=== PATIENT | female | born 1965 | race Caucasian/White ===

== ENCOUNTER → 2019-09-17 09:45 | Outpatient (BNVA) | payer MEDICARE, MEDICAID, SELFPAY | PROVIDERS: Visit Provider Nurse Practitioner Psychiatric/Mental Health | DX: F33.2 Major depressive disorder, recurrent severe without psychotic features (principal); F41.1 Generalized anxiety disorder; F17.210 Nicotine dependence, cigarettes, uncomplicated | CPT/HCPCS: 99213 ==

== ENCOUNTER 2019-11-03 09:25 | Outpatient (CLI) | payer MEDICARE, MEDICAID, SELFPAY ==
--- NOTE | 2019-11-03 09:30 | MR_ITS ---
WS: [id number] MRI LUMBAR SPINE NONCONTRAST HISTORY: Low back pain COMPARISON: 01/29/2019 TECHNIQUE: Sagittal and axial multisequence imaging is submitted. Normal lumbar alignment with no compression fractures or marrow edema. Disc spaces are maintained. Mild disc desiccation at L4-5. Conus terminates normally at L1. L1-L2: Normal. L2-L3: Mild facet arthropathy. No stenosis. L3-L4: Mild annular disc bulging and facet arthropathy. Very slight narrowing of the foramen bilatera lly. L4-L5: Mild narrowing of the thecal sac and foramen due to combination of disc and facet disease. Angela y shallow central disc protrusion seen on the prior study has nearly resolved. There is very minimal disc bulging centrally and to the RIGHT. Mild central, subarticular recess and foraminal stenosis. Co mponent of short pedicles is also suspected. L5-S1: Mild bilateral foraminal narrowing. Paraspinal soft tissues are negative for acute process. MR/MR lumbar spine wo con* [id number] IMPRESSION: 1. Degenerative disc and facet arthropathy at L4-5. 2. There is mild central, subarticular recess and foraminal stenosis at the L4 -5 level. Previously seen tiny disc protrusion at L4-5 has nearly resolved. 3. There is mild narrowing of the central canal. 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 No severe stenosis at this time.
== END 2019-11-03 09:26 | disposition home or self-care (01) ==
LOC: RADSHAW 09:29
PROVIDERS: PCP Nurse Practitioner Family; Visit Provider Licensed Practical Nurse
DX: M47.896 Other spondylosis, lumbar region (principal); M48.061 Spinal stenosis, lumbar region without neurogenic claudication; M54.5 Low back pain
CPT/HCPCS: 72148

== ENCOUNTER 2019-11-04 08:10 | Outpatient (CLI) | payer MEDICARE, MEDICAID, SELFPAY ==
--- NOTE | 2019-11-04 08:22 | XR_ITS ---
WS: [id number] LUMBAR SPINE FLEXION AND EXTENSION TECHNIQUE: 3 views of the lumbar spine: Lateral neutral, flexion, and extension views. CLINICAL INFORMATION: low back pain COMPARISON: May 07, 2019 FINDINGS: Stable trace anterolisthesis L4 on L5. No instability on the flexion and extension views. Chronic appearing anterior wedging at T11. Aortic calcification. Mild to moderate facet arthropathy L 4-L5 and L5-S1. XR/XR lumbar spine f/e only [id number] IMPRESSION: No instability on flexion-extension
== END 2019-11-04 08:11 | disposition home or self-care (01) ==
LOC: RADWPI 08:17
PROVIDERS: PCP Nurse Practitioner Family; Visit Provider Licensed Practical Nurse
DX: M51.17 Intervertebral disc disorders with radiculopathy, lumbosacral region (principal); M54.5 Low back pain
CPT/HCPCS: 72120

== ENCOUNTER → 2019-11-25 08:37 | Outpatient (BNVA) | payer MEDICARE, MEDICAID, SELFPAY | PROVIDERS: PCP Nurse Practitioner Family; Referring Provider Licensed Practical Nurse; Visit Provider Anesthesiology Pain Medicine | DX: M47.816 Spondylosis without myelopathy or radiculopathy, lumbar region (principal); M51.17 Intervertebral disc disorders with radiculopathy, lumbosacral region; M62.830 Muscle spasm of back; F17.210 Nicotine dependence, cigarettes, uncomplicated; Z79.899 Other long term (current) drug therapy | CPT/HCPCS: 99204 ==

== ENCOUNTER → 2020-01-05 07:41 | Outpatient (BNVA) | payer MEDICARE, MEDICAID, SELFPAY | PROVIDERS: PCP Nurse Practitioner Family; Visit Provider Nurse Practitioner Psychiatric/Mental Health | DX: F33.2 Major depressive disorder, recurrent severe without psychotic features (principal); F41.1 Generalized anxiety disorder; F17.210 Nicotine dependence, cigarettes, uncomplicated | CPT/HCPCS: 99213 ==

== ENCOUNTER 2020-04-13 19:35 | Inpatient (IN) | payer MEDICARE, MEDICAID, SELFPAY ==
[2020-04-13 19:46] VITALS: BP 92/65; PULSE 101; RESP 26; TEMP 36.3; O2SAT 93; BMI 33.2
--- NOTE | 2020-04-13 19:58 | CTR_ITS ---
PROCEDURE INFORMATION: Exam: CT Abdomen And Pelvis With Contrast Exam date and time: 04/13/2020 8:20 PM Age: 54 years old Clinical indication: Nausea and vomiting; Abdominal pain; Prior surgery; Surgery type: Hyst, gb; Additional info: Abd pain TECHNIQUE: Imaging protocol: Computed tomography of the abdomen and pelvis with intravenous contrast. Axial, coronal and sagittal reformatted images were created and reviewed. Radiation optimization: All CT scans at this facility use at least one of these dose optimization techniques: automated exposure control; mA and/or kV adjustment per patient size (includes targeted exams where dose is matched to clinical indication); or iterative reconstruction. Contrast material: OMNI 300; Contrast volume: 95 ml; Contrast route: INTRAVENOUS (IV); COMPARISON: CT abdomen pelvis wo con [id number] 03/18/2016 7:21 AM RADIATION DOSE METRICS: Total DLP (mGy-cm): 1291.91 FINDINGS: Liver: Subtle nodularity of the hepatic contour, suggesting cirrhosis. Gallbladder and bile ducts: Status post cholecystectomy. No biliary ductal dilatation. Pancreas: Unremarkable. Spleen: Unremarkable. Adrenals: Mild nonspecific bilateral adrenal thickening. Kidneys and ureters: No mass. No radiodense calculi. No hydronephrosis. Stomach and bowel: Multifocal bowel wall thickening and mural edema, most pronounced in the mid to distal small bowel loops and sigmoid colon. Scattered colonic diverticula. No obstruction. No pneumatosis. Appendix: Normal. Intraperitoneal space: Small ascites some of which is mildly loculated and peripherally enhancing in the pelvis, measuring up to 9.4 x 4.3 cm in the right lower pelvis and 5.4 x 3.2 cm in the left posterior pelvis. Moderate infiltration of the mesenteric fat. Scattered foci of free intraperitoneal air. Vasculature: Moderate atherosclerotic disease. No aneurysm or dissection. Lymph nodes: No pathologically enlarged lymph nodes. Bladder: Mild circumferential urinary bladder wall thickening, likely secondary to underdistention. Reproductive: Unremarkable. Bones/joints: No acute osseous abnormality. Osteopenia. Mild degenerative changes. Soft tissues: Unremarkable. CT/CT abdomen pelvis w con* [id number] IMPRESSION: 1. Evidence of bowel perforation with reactive enteritis, peritonitis and developing abscess formation in the pelvis, as described above. Query underlying perforated sigmoid diverticulitis. 2. Additional findings, as above. THIS REPORT CONTAINS FINDINGS THAT MAY BE CRITICAL TO PATIENT CARE. The findings were verbally communicated via telephone conference with jennie Chang at 9:00 PM CDT on 04/13/2020. The findings were acknowledged and understood. Radiation Dose CTDIVOL = (mGy): DLP = 1291.91 (mGy-cm)
[2020-04-13 20:00] LABS: Basophils # 0.2 10^3/uL (0.0-0.1); Basophils % 0.5 %; Eosinophils % 0.1 %; Hematocrit 49.9 % (37.0-47.0); Hemoglobin 16.6 g/dL (11.5-15.3); Lymphocytes # 1.8 10^3/uL (0.8-4.8); Lymphocytes % 5.4 %; Mean Corpuscular HGB Conc 33.3 g/dL (30.0-36.0); Mean Corpuscular Hemoglobin 28.5 pg (28.0-34.0); Mean Corpuscular Volume 85.7 fL (81-99); Monocytes % 5.9 %; Neutrophils # 28.22 10^3/uL (1.8-7.7); Neutrophils % 84.8 %; Nucleated Red Blood Cells % 0 %; Platelet Count 467 10^3/cmm (130-400); Red Blood Count 5.82 10^6/uL (4.1-5.3); Red Cell Distribution Width 13.9 % (12.1-15.1)
--- NOTE | 2020-04-13 20:03 | W.ED.NAVMDI ---
HPI - Nausea/Vomiting/Diarrhea General: Chief complaint: Nausea/Vomiting/Diarrhea Stated complaint: STOMACH PAIN Time Seen by Provider: 04/13/20 19:54 Source: patient and EMS Mode of arrival: EMS Limitations: no limitations History of Present Illness: HPI Narrative: 54-year-old female states over the last 3 to 4 days she had nausea vomiting diarrhea along with abdominal pain. States abdominal pain is diffuse in nature and sharp. She rates her pain an 8 out of 10. Denies any worsening or improving factors. Denies any fevers. Patient has a history of a cholecystectomy in the past. MD elicited complaint: nausea, vomiting and abdominal pain Associated nausea: Yes Location of pain: Diffuse Pain consistency: constant Severity: severe Quality: sharp Exacerbating factors: none Relieving factors: none Associated symtoms: Reports nausea; Denies chest pain, dysuria or headache(s) Review of Systems Const: Denies: fever(s), chills, body aches or change in appetite Eyes: Denies: blurry vision or eye discomfort ENMT: Denies: throat pain or dental pain Card: Denies: chest pain Resp: Denies: dyspnea GI: Reports: abdominal pain, nausea and vomiting : Denies: dysuria Musc: Denies: neck pain or back pain Skin/Breast: Denies: rash Neuro: Denies: headache(s) Psych: Denies: depression Jf/Lymph: Denies: easy bruising All/Imm: Denies: urticaria PFSH ED PFSH: Medical History Generalized anxiety disorder 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, recurrent severe without psychotic features Nicotine dependence, cigarettes, uncomplicated Surgical History H/O of hysterectomy with bilateral oophorectomy Family History Mother CHF (congestive heart failure) Social History Smoking and tobacco status: current every day smoker cigarettes Packs smoked per day: 1 Alcohol intake: current Alcohol intake frequency: few times a month Household members: family Marital status: Current occupational status: unemployed History of recent travel: No Physical Exam Const: COMMON NORMALS: no acute distress, patient oriented x3 and healthy appearing HENMT: COMMON NORMALS: normocephalic and atraumatic HEAD & SCALP: normocephalic and atraumatic Eye: COMMON NORMALS: Equal, round and reactive pupils present and EOMs intact bilaterally PUPIL: Yes Equal, round and reactive pupils present Neck/C-Spine: COMMON NORMALS: full ROM and supple Chest: COMMONS NORMALS: normal inspection of the chest and normal palpation of entire chest wall Resp: COMMON NORMALS: normal respiratory effort, No retractions, No use of accessory muscles and clear to auscultation bilaterally AUSCULTATION: clear to auscultation bilaterally Cardio: COMMON NORMALS: regular rate, regular rhythm and No murmurs present (Cardio) RATE: regular rate RHYTHM: regular rhythm GI: COMMON NORMALS: Normal to inspection, nondistended, normoactive bowel sounds present, Soft to palpation and no masses PALPATION: Yes Soft to palpation and Yes Tenderness to palpation present (GI) (diffuse) Extremity: COMMON NORMALS: normal to inspection and full ROM Neuro: COMMON NORMALS: patient oriented x3, moves all extremities and no focal motor deficits Psych: COMMON NORMALS: mental status grossly normal, Normal thought process present and cooperative THOUGHT PROCESS: Normal thought process present Skin: COMMON NORMALS: no rashes or lesions noted and no wounds GENERAL SKIN EXAM: no rashes or lesions noted Course Vital Signs: Vital signs: Vital Signs Temperature 97.3 F L 04/13/20 19:46 Pulse Rate 88 04/13/20 21:27 Respiratory Rate 18 04/13/20 21:27 Blood Pressure 108/62 04/13/20 21:27 Pulse Oximetry 95 04/13/20 21:27 MDM - Nausea/Vomiting/Diarrhea MDM Narrative: Medical decision making narrative: Patient presents here with abdominal pain is found to have a bowel perforation. Patient also has acute kidney injury. Patient started on Cipro and Flagyl and Dr. Villegas is down seen patient currently and plan to take to the OR. Patient has been stable here. Lab Data: Labs: Lab Results 04/13/20 04/13/20 Range/Units 19:56 19:56 WBC 33.3 H* (4.0-10.0) 10^3/ uL RBC 5.82 H (4.1-5.3) 10^6/u L Hgb 16.6 H (11.5-15.3) g/dL Hct 49.9 H (37.0-47.0) % MCV 85.7 (81-99) fL MCH 28.5 (28.0-34.0) pg MCHC 33.3 (30.0-36.0) g/dL RDW 13.9 (12.1-15.1) % Plt Count 467 H (130-400) 10^3/c mm MPV 9.0 (7.4-10.4) fL Neut % (Auto) 84.8 % Lymph % (Auto) 5.4 % [place] % (Auto) 5.9 % Eos % (Auto) 0.1 % Baso % (Auto) 0.5 % Neut # (Auto) 28.22 H (1.8-7.7) 10^3/u L Lymph # (Auto) 1.8 (0.8-4.8) 10^3/u L [place] # (Auto) 2.0 H (0.2-0.9) 10^3/u L Eos # (Auto) 0.0 (0.0-0.8) 10^3/u L Baso # (Auto) 0.2 H (0.0-0.1) 10^3/u L Nucleated RBC % (a uto) 0 % Nucleated RBCs # 0.0 /100WBC Sodium 126 L (136-145) mmol/L Potassium 2.7 L* (3.5-5.1) mmol/L Chloride 79 L (98-107) mmol/L Carbon Dioxide 24 (22-29) mmol/L Anion Gap 25.7 H (5-19) BUN 90 H* (6-20) mg/dL Creatinine 3.3 H (0.5-0.9) mg/dL GFR Calculation 14.6 L (90-130) mL/min Glucose 113 (65-115) mg/dL Calculated Osmolal ity 263 L (285-295) mOsm/k g Calcium 7.9 L (8.5-10.5) mg/dL Total Bilirubin 1.0 (0.15-1.2) mg/dL AST 22 (0-32) U/L ALT 11 (0-33) U/L Alkaline Phosphata se 132 H (35-105) IU/L Total Protein 7.4 (6.6-8.7) g/dL Albumin 2.5 L (3.5-5.2) g/dL Globulin 4.9 H (1.3-4.6) g/dL Lipase 33 (13-60) U/L Imaging Data^: CT Abd/Pel: Radiologist's impression: [address] [place] [address] CT Scan Report Signed Patient: Irma Jones Unit #: [id number] : [id number] Age/Sex: 54 / F ADM Date: 04/13/20 Loc: ER Room/Bed: Attending Dr: Ordering Provider/Ordering MD: Brianne Chang MD Date of Service: 04/13/20 Procedure(s): CT abdomen pelvis w con* [id number] Accession Number(s): [id number] Report Number: [id number] PROCEDURE INFORMATION: Exam: CT Abdomen And Pelvis With Contrast Exam date and time: 04/13/2020 8:20 PM Age: 54 years old Clinical indication: Nausea and vomiting; Abdominal pain; Prior surgery; Surgery type: Hyst, gb; Additional info: Abd pain TECHNIQUE: Imaging protocol: Computed tomography of the abdomen and pelvis with intravenous contrast. Axial, coronal and sagittal reformatted images were created and reviewed. Radiation optimization: All CT scans at this facility use at least one of these dose optimization techniques: automated exposure control; mA and/or kV adjustment per patient size (includes targeted exams where dose is matched to clinical indication); or iterative reconstruction. Contrast material: OMNI 300; Contrast volume: 95 ml; Contrast route: INTRAVENOUS (IV); COMPARISON: CT abdomen pelvis wo con [id number] 03/18/2016 7:21 AM RADIATION DOSE METRICS: Total DLP (mGy-cm): 1291.91 FINDINGS: Liver: Subtle nodularity of the hepatic contour, suggesting cirrhosis. Gallbladder and bile ducts: Status post cholecystectomy. No biliary ductal dilatation. Pancreas: Unremarkable. Spleen: Unremarkable. Adrenals: Mild nonspecific bilateral adrenal thickening. Kidneys and ureters: No mass. No radiodense calculi. No hydronephrosis. Stomach and bowel: Multifocal bowel wall thickening and mural edema, most pronounced in the mid to distal small bowel loops and sigmoid colon. Scattered colonic diverticula. No obstruction. No pneumatosis. Appendix: Normal. Intraperitoneal space: Small ascites some of which is mildly loculated and peripherally enhancing in the pelvis, measuring up to 9.4 x 4.3 cm in the right lower pelvis and 5.4 x 3.2 cm in the left posterior pelvis. Moderate infiltration of the mesenteric fat. Scattered foci of free intraperitoneal air. Vasculature: Moderate atherosclerotic disease. No aneurysm or dissection. Lymph nodes: No pathologically enlarged lymph nodes. Bladder: Mild circumferential urinary bladder wall thickening, likely secondary to underdistention. Reproductive: Unremarkable. Bones/joints: No acute osseous abnormality. Osteopenia. Mild degenerative changes. Soft tissues: Unremarkable. CT/CT abdomen pelvis w con* [id number] IMPRESSION: 1. Evidence of bowel perforation with reactive enteritis, peritonitis and developing abscess formation in the pelvis, as described above. Query underlying perforated sigmoid diverticulitis. 2. Additional findings, as above. Critical Care Time Critical Care Time: Critical Care Time: Yes Total Critical Care Time: 36 Attestation: This case had a high probability of a clinically significant, sudden, or life threatening deterioration of this patient's condition which required my full and direct attention, intervention and personal management. Discharge Plan Discharge Patient Disposition: Admitted As Inpatient Clinical Impression: Bowel perforation, Acute kidney injury Condition: Stable Coding Level of Care Code ED Paper Cone Maker for Pretty Waggoner Exam Comprehensive
[2020-04-13 20:18] LABS: Alanine Aminotransferase 11 U/L (0-33); Albumin Level 2.5 g/dL (3.5-5.2); Alkaline Phosphatase 132 IU/L (35-105); Anion Gap 25.7 (5-19); Aspartate Amino Transferase 22 U/L (0-32); Calcium 7.9 mg/dL (8.5-10.5); Carbon Dioxide 24 mmol/L (22-29); Chloride 79 mmol/L (98-107); Globulin 4.9 g/dL (1.3-4.6); Glomerular Filtration Rate 14.6 mL/min (90-130); Glucose 113 mg/dL (65-115); Lipase 33 U/L (13-60); Osmolality Calculated 263 mOsm/kg (285-295); Sodium 126 mmol/L (136-145); Total Protein 7.4 g/dL (6.6-8.7)
[2020-04-13 20:23] LABS: Blood Urea Nitrogen 90 mg/dL (6-20); Potassium 2.7 mmol/L (3.5-5.1)
[2020-04-13] MEDS: iohexol 300 mg/mL 100 mL Btl IV (20:28)
[2020-04-13] MEDS: potassium chloride ER 10 mEq Tablet 40 MEQ PO (20:43)
[2020-04-13] MEDS: sodium chloride 0.9% 1,000 ML 999 ML IV ×2 (20:45→20:47)
[2020-04-13 20:46] VITALS: RESP 16; O2SAT 97
[2020-04-13] MEDS: ondansetron 2 mg/ML SDV 2 mL 4 MG IVP (20:46)
[2020-04-13] MEDS: HYDROmorphone 1 mg/mL INJ 1 mL IVP (20:46)
[2020-04-13 20:50] VITALS: BP 108/73; PULSE 89; RESP 18; O2SAT 96
[2020-04-13 20:52] LABS: White Blood Count 33.3 10^3/uL (4.0-10.0)
[2020-04-13 20:54] LABS: Slide Review Slide Review Perform
--- NOTE | 2020-04-13 21:24 | ECG_ITS ---
[facility] Test Date: 2020-04-13 Pat Name: Irma Jones Department: Room: Gender: Female Manager Intensive Care Unit: : 1965 Requested By: Breanna Love Order Number: [id number] Lyon MD: Maximino Coon M.D. Measurements Intervals [place] Rate: 79 P: 70 ND: 162 QRS: -43 QRSD: 112 T: 66 QT: 384 QTc: 440 Interpretive Statements SINUS RHYTHM LEFT AXIS DEVIATION [QRS AXIS < -30] MODERATE INTRAVENTRICULAR CONDUCTION DELAY [105+ ms QRS DURATION, 80+ ms Q/S IN V1/V2, NO Q AND 60+ ms R IN I/aVL/V5/V6] Compared to ECG 03/17/2016 17:02:57 Left-axis deviation now present Intraventricular conduction delay now present Myocardial infarct finding no longer present Electronically Signed On 04-14-2020 20:19:17 CDT by Mxaimino Coon M.D. [id number]
[2020-04-13] MEDS: ciprofloxacin 400 MG/200 ML PREMIX 200 MG IV (21:25)
[2020-04-13 21:27] VITALS: BP 108/62; PULSE 88; RESP 18; O2SAT 95
--- NOTE | 2020-04-13 21:33 | P.HP_ITS ---
Providers/Chief Complaint Admitting Physician: Toño Villegas MD Chief Complaint: STOMACH PAIN History of Present Illness Chief Complaint: My belly hurts History of present illness: Ms Irma Jones is a 54 year old female presents to the emergency department with worsening abdominal pain since last Sunday associated with nausea and v omiting she had a bowel movement today in the form of diarrhea nonbloody, patient denies any fevers or chills but she admits that she has been getting weaker, patient upon evaluation in the emergency department was found to have leukocytosis of 33,000+ and elevated creatinine more than 3 likely acute kidney injury and a CT scan of the abdomen and pelvis that showed; IMPRESSION: 1. Evidence of bowel perforation with reactive enteritis, peritonitis and developing abscess formation in the pelvis, as described above. Query underlying perforated sigmoid diverticulitis. 2. Additional findings, as above. Patient reports that she has history of depression and high blood pressure. General surgery was consulted for further evaluation and management Patient was seen emergently in the emergency department in room 2 Review of Systems General: Reports: 10 or more systems reviewed and unremarkable except in HPI and below Medications/Allergies Home Medications Medication Instructions Recorded Confirmed Last Taken Type esomeprazole magnesium 40 mg 40 mg PO QDAY 09/17/19 04/13/20 04/13/20 History capsule,delayed release hydrochlorothiazide 12.5 mg tablet 12.5 mg PO QAM 09/17/19 04/13/20 Unknown History lovastatin 20 mg tablet 20 mg PO QDAY 09/17/19 04/13/20 Unknown History meloxicam 15 mg tablet 15 mg PO QDAY 09/17/19 04/13/20 Unknown History ondansetron HCl 4 mg tablet 4 mg PO DAILY PRN tab 09/17/19 04/13/20 Unknown History valsartan 80 mg tablet 80 mg PO QDAY 09/17/19 04/13/20 Unknown History [id number] 250 1 tab PO Q6H PRN 11/25/19 04/13/20 Unknown History mg-250 mg-65 mg tablet baclofen 10 mg tablet 10 mg PO TID PRN 11/25/19 04/13/20 Unknown History gabapentin 300 mg capsule 300 mg PO BID #60 cap 11/25/19 04/13/20 Unknown Rx tizanidine 4 mg tablet 4 mg PO BID PRN #60 tab MDD 2 11/25/19 04/13/20 Unknown Rx alprazolam 1 mg tablet 1 mg PO TID PRN #90 tab 01/05/20 04/13/20 Unknown Rx citalopram 40 mg tablet 40 mg PO .morning #30 tab 01/05/20 04/13/20 Unknown Rx hydroxyzine HCl 50 mg tablet 50 mg PO BID PRN #60 tab 01/05/20 04/13/20 Unknown Rx trazodone 100 mg tablet 300 mg PO .bedtime #90 tab 01/05/20 04/13/20 Unknown Rx Allergies Allergy/AdvReac Type Severity Reaction Status Date / Time codeine Allergy Unknown rash, Verified 04/13/20 21:43 itching Penicillins Allergy Unknown rash, Verified 04/13/20 21:43 itching Sulfa (Sulfonamide Allergy Unknown rash, Verified 04/13/20 21:43 Antibiotics) itching PFSH Acute PFSH: Medical History Generalized anxiety disorder 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, recurrent severe without psychotic features Nicotine dependence, cigarettes, uncomplicated Surgical History H/O of hysterectomy with bilateral oophorectomy Family History Mother CHF (congestive heart failure) Social History Smoking and tobacco status: current every day smoker cigarettes Packs smoked per day: 1 Alcohol intake: current Alcohol intake frequency: few times a month Household members: family Marital status: Current occupational status: unemployed History of recent travel: No Vitals/I&O/Wt Last Vital Signs Temp 97.3 F L 04/13/20 19:46 Pulse 88 04/13/20 21:27 Resp 18 04/13/20 21:27 BP 108/62 04/13/20 21:27 Pulse Ox 95 04/13/20 21:27 Weight last 48 hrs Weight 170 lb Physical Exam Narrative: EXAM NARRATIVE: Patient is conscious alert oriented X3 BMI 33.2 Head and neck examination PERRLA no masses no cervical lymphadenopathy no jaundice Cardiac examination audible S1-S2 no murmurs no gallops no arrhythmias Chest is clear bilateral,abscence of Rhonchi or wheezes,no surgical emphysema Abdomen diffusely tender distended associated with guarding and rigidity/signs of peritonitis Extremities no cyanosis no clubbing no edema Data : 04/13/20 19:56 04/13/20 19:56 A&P Assessment and plan (1) Bowel perforation: After thorough history physical examination and reviewing the chart and images with my personal interpretation likely the patient has a perforated sigmoid diverticulitis will require diagnostic laparoscopy possible laparotomy with possible bowel resection and possible colostomy. Indications risks benefits and alternatives all discussed with the patient her daughter, patient agreed to proceed accordingly. Patient does understand that she is a high risk of complications due to her late presentation as she has been having abdominal pain for a week now, potential need of ICU on mechanical ventilation postoperatively. We will consult hospitalist service evaluate for patient's kidney injury Status: Acute Attestations Medical Necessity Statement*: Medical necessity care is expected to cross 2 midnights Time Spent in Patient Care: (>than 50% of time spent in counselling and/or direct pt care on unit) . Coding Level of Care Code Acute Clinical Project Assistant for Pretty Waggoner Diagnoses Bowel perforation K63.1
[2020-04-13 21:38] LABS: Lactate (Lactic Acid level) 3.5 mmol/L (0.5-2.2)
--- NOTE | 2020-04-13 21:55 | P.CONIM_ITS ---
Providers/Reason For Consult Consulting Physican/Specialty*: Hospitalist service Reason for Consult*: Acute kidney injury Attending Physician: Toño Villegas MD History of Present Illness History of Present Illness Irma Jones is a 54 year old female who carries history of major depressive disorder, generalized anxiety, nicotine dependence, takes hydrochlorothiazide for hypertension along with losartan came in today for chief complaint of abdominal pain. For last 3 to 4 days patient has been experiencing multiple episodes of nausea vomiting and diarrhea. She is endorsing that her abdominal pain is diffuse and sharp in nature 06/05. Patient is stating that her symptoms started on , she has been having more than 20 episodes of diarrhea, vomiting, her symptoms were not getting better got worse today so she decided to come to the hospital for further management. She has not eaten or taken any fluids for last 6 days, her urine output has been decreased, she feels extremely dehydrated. Patient has had colonoscopy at age 51, polyp was removed, no malignancy was reported to the patient. Diagnosis in the ER revealed perforated bowel with signs of peritonitis She is currently being prepped for surgical intervention Hospital service has been requested for management of IRMA At the time my evaluation patient was laying in right lateral position, systolic blood pressure 90s, afebrile, CBC, BMP reviewed, CT abdomen reviewed Hyponatremic, hypokalemic, high anion gap metabolic acidosis secondary to lactic acidemia Review of Systems Const: Reports: chills, body aches, change in appetite and fatigue Eyes: Denies: change in vision ENMT: Denies: throat pain Card: Denies: chest pain Resp: Denies: dyspnea GI: Reports: abdominal pain, nausea, vomiting and diarrhea : Denies: flank pain Musc: Denies: neck pain Skin/Breast: Reports: rash and lesions (History of psoriasis) Neuro: Reports: headache(s) Psych: Reports: anxiety and depression Endo: Denies: polyuria Jf/Lymph: Denies: easy bruising All/Imm: Denies: urticaria Meds/Allergies Home Medications and Allergies Home Medications Medication Instructions Recorded Confirmed Last Taken Type esomeprazole magnesium 40 mg 40 mg PO QDAY 09/17/19 04/13/20 04/13/20 History capsule,delayed release hydrochlorothiazide 12.5 mg tablet 12.5 mg PO QAM 09/17/19 04/13/20 Unknown History lovastatin 20 mg tablet 20 mg PO QDAY 09/17/19 04/13/20 Unknown History meloxicam 15 mg tablet 15 mg PO QDAY 09/17/19 04/13/20 Unknown History ondansetron HCl 4 mg tablet 4 mg PO DAILY PRN tab 09/17/19 04/13/20 Unknown History valsartan 80 mg tablet 80 mg PO QDAY 09/17/19 04/13/20 Unknown History fkvrelp-ilasoghzqfujt-fokfswvs 250 1 tab PO Q6H PRN 11/25/19 04/13/20 Unknown History mg-250 mg-65 mg tablet baclofen 10 mg tablet 10 mg PO TID PRN 11/25/19 04/13/20 Unknown History gabapentin 300 mg capsule 300 mg PO BID #60 cap 11/25/19 04/13/20 Unknown Rx tizanidine 4 mg tablet 4 mg PO BID PRN #60 tab MDD 2 11/25/19 04/13/20 Unknown Rx alprazolam 1 mg tablet 1 mg PO TID PRN #90 tab 01/05/20 04/13/20 Unknown Rx citalopram 40 mg tablet 40 mg PO .morning #30 tab 01/05/20 04/13/20 Unknown Rx hydroxyzine HCl 50 mg tablet 50 mg PO BID PRN #60 tab 01/05/20 04/13/20 Unknown Rx trazodone 100 mg tablet 300 mg PO .bedtime #90 tab 01/05/20 04/13/20 Unknown Rx Allergies Allergy/AdvReac Type Severity Reaction Status Date / Time codeine Allergy Unknown rash, Verified 04/13/20 21:43 itching Penicillins Allergy Unknown rash, Verified 04/13/20 21:43 itching Sulfa (Sulfonamide Allergy Unknown rash, Verified 04/13/20 21:43 Antibiotics) itching Current Medications Current Medications Generic Name Dose Route Start Last Admin Trade Name Freq PRN Reason Stop Dose Admin Ciprofloxacin/Dextrose 400 mg in 200 mls @ 200 mls/hr 04/13/20 21:07 04/13/20 21:25 Cipro IV 04/13/20 22:06 200 mls/hr [employer] Administration Protocol PFSH Acute PFSH: Medical History Generalized anxiety disorder 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, recurrent severe without psychotic features Nicotine dependence, cigarettes, uncomplicated Surgical History H/O of hysterectomy with bilateral oophorectomy Family History Mother CHF (congestive heart failure) Social History Smoking and tobacco status: current every day smoker cigarettes Packs smoked per day: 1 Alcohol intake: current Alcohol intake frequency: few times a month Household members: family Marital status: Current occupational status: unemployed History of recent travel: No Vitals/I&O/Wt Last Vital Signs Temp 97.3 F L 04/13/20 19:46 Pulse 88 04/13/20 21:27 Resp 18 04/13/20 21:27 BP 108/62 04/13/20 21:27 Pulse Ox 95 04/13/20 21:27 Weight last 48 hrs Weight 77.111 kg Physical Exam Narrative: EXAM NARRATIVE: Pleasant female laying in the right lateral position when I entered the room Daughter was at the bedside Patient was able to give me above-mentioned details EOMI, PERRLA awake alert oriented x3 Patient was in distress because abdominal pain Extremely dehydrated, dry cracked lips, dried ducal because membranes Psoriatic rash all over her extremities S1, S2 Abdomen tender on mild palpation positive peritonitis with rigidity Bilateral breath sounds without adventitious sounds A&P Assessment and plan (1) Bowel perforation: Status: Acute (2) Acute kidney injury: Status: Acute (3) Generalized anxiety disorder: Status: Chronic Additional A&P Information Acute kidney injury Baseline creatinine seems to be normal Patient has had multiple episodes of vomiting and diarrhea for last 5 to 6 days, currently hypotensive, at home she was taking hydrochlorothiazide, meloxicam, valsartan which could have contributed to her IRMA, no hydronephrosis I do believe that this is secondary to dehydration We will resuscitate her with fluids after her surgical intervention tonight Hold nephrotoxic agent Monitor urine output Polycythemia, hyponatremia, hypokalemia along hypokalemia consistent with dehydration I would start dextrose and normal saline at 100 mL/h along 20 of kcl, She will need monitoring in ICU postoperatively This seems to be prerenal in nature, would request urine sodium and creatinine level, monitor for development of ATN Bowel perforation: Management as per surgical, currently patient is being prepped for surgical intervention DVT prophylaxis: As per surgery Consult Attestations Medical Necessity Statement: As per surgery Time Spent in Patient Care: (>than 50% of time spent in counselling and/or direct pt care on unit) . 30mins Coding Level of Care Code Acute Gas Pump Attendant for Pretty Waggoner Diagnoses Bowel perforation K63.1 Acute kidney injury N17.9 Generalized anxiety disorder F41.1
[2020-04-13 22:12] VITALS: BP 85/50; PULSE 84; RESP 17; TEMP 36.8; O2SAT 95
--- NOTE | 2020-04-13 22:12 | P.ANESASSM_ITS ---
Pre-Anesthetic Assessment Pre-Anesthetic Assessment: Height/Weight: Height 1.52 m Weight 77.111 kg Temp Pulse Resp BP Pulse Ox 97.3 F L 88 18 108/62 95 04/13/20 19:46 04/13/20 21:27 04/13/20 21:27 04/13/20 21:27 04/13/20 21:27 Preop Diagnosis: Perforated viscus Proposed Procedure: Operation Date: 04/13/20 22:30 Proposed Procedures p Laparoscopy(Not Applicable) - Toño Villegas MD s Exploratory Laparotomy(Not Applicable) - Toño Villegas MD s Laparoscopic Colon Resection(Not Applicable) - Toño Villegas MD Familial anesthetic complications: None Last intake: Intake Drinking water and grape juice all day long, no solids for days per patient Last Liquid Date 04/13/20 Last Liquid Time 20:43 Last Solid Date 04/07/20 Last Solid Time 12:00 Social: Social History: Tobacco Exam: Pre-Anes Outpt Exam: alert, oriented x 3, clear to auscultation bilaterally and regular rate & rhythm Airway: Cervical ROM: WNL MP: 4 Dentition: Chipped CV/HEM: CV/HEM: HTN : Comments: IRMA GI: Comments: ? bowel perforation Anesthetic Plan: ASA status: 2E Anesthesia: General Risk of > 500 ml blood loss (7ml/kg in children): No PFSH Anesthesia PFSH: Medical History Generalized anxiety disorder 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, recurrent severe without psychotic features Nicotine dependence, cigarettes, uncomplicated Surgical History H/O of hysterectomy with bilateral oophorectomy Family History Mother CHF (congestive heart failure) Social History Smoking and tobacco status: current every day smoker cigarettes Packs smoked per day: 1 Alcohol intake: current Alcohol intake frequency: few times a month Household members: family Marital status: Current occupational status: unemployed History of recent travel: No Data Anesthesia CBC & Chem 7: 04/13/20 19:56 04/13/20 19:56 Other Labs: Laboratory Results - last 48 hr 04/13/20 04/13/20 04/13/20 19:56 19:56 19:56 WBC 33.3 H* RBC 5.82 H Hgb 16.6 H Hct 49.9 H MCV 85.7 MCH 28.5 MCHC 33.3 RDW 13.9 Plt Count 467 H MPV 9.0 Neut % (Auto) 84.8 Lymph % (Auto) 5.4 [place] % (Auto) 5.9 Eos % (Auto) 0.1 Baso % (Auto) 0.5 Neut # (Auto) 28.22 H Lymph # (Auto) 1.8 [place] # (Auto) 2.0 H Eos # (Auto) 0.0 Baso # (Auto) 0.2 H Nucleated RBC % (auto) 0 Nucleated RBCs # 0.0 Sodium 126 L Potassium 2.7 L* Chloride 79 L Carbon Dioxide 24 Anion Gap 25.7 H BUN 90 H* Creatinine 3.3 H GFR Calculation 14.6 L Glucose 113 Calculated Osmolality 263 L Lactate 3.5 H Calcium 7.9 L Total Bilirubin 1.0 AST 22 ALT 11 Alkaline Phosphatase 132 H Total Protein 7.4 Albumin 2.5 L Globulin 4.9 H Lipase 33 Cardiac Studies: No Data to Display
[2020-04-13] MEDS: sodium chloride 0.9% 1,000 ML 30 ML IV (22:17)
[2020-04-13] MEDS: metroNIDAZOLE IV 500 MG/100 ML PREMIX 100 MG IV (22:20)
[2020-04-13] MEDS: famotidine 20 mg/2 mL INJ IVP (22:23)
[2020-04-13] MEDS: lidocaine 2% INJ 20 mL 3 ML INJECTION (22:35)
--- NOTE | 2020-04-13 22:55 | ANE.PACU2 ---
Inpatient post-anesthesia follow up: Airway intact: No (intubated) Vital signs: Temperature 98.2 F Pulse Rate [Monito r] 101 Pulse Rate 89 Respiratory Rate 14 Blood Pressure [Ri ght Arm] 92/65 Blood Pressure 98/66 Pulse Oximetry 92 Oxygen Delivery Me thod Mechanical Ventila tion Oxygen Flow Rate 65 Fraction of Inspir ed Oxygen 100 Hydration adequate: Yes Nausea and vomiting: No Pain level: 1 Mental status: Altered (sedated)
[2020-04-13] MEDS: sodium chloride 0.9% SDV 10 mL 40 ML INJECTION (23:56)
[2020-04-14] VITALS (71 sets, daily range): BP systolic 89–156; BP diastolic 50–132; PULSE 84–108; RESP 12–18; TEMP 35.3–37.2; O2SAT 81–100
--- NOTE | 2020-04-14 00:08 | P.OP_ITS ---
Operative Report Date of procedure: April 14, 2020 Pre-op Diagnosis: Perforated viscus Post-op Findings: Florid peritonitis with Amalgamated frozen pelvis and reactive enteritis. Multiple large pockets of pus within different compartments of the abdomen towards the central part and right upper and lower and left lower quadrants. Exploratory laparotomy Peritoneal lavage Lysis of omental adhesions encasing different compartmental intra-abdominal abscesses Frozen pelvis with sigmoid colon stuck to the left lateral pelvic wall Multiple small bowel enteritis secondary to reactive inflammation involving as well the right side of the colon Otherwise normal-looking viscera Bilateral tap block Procedure Done: Diagnostic laparoscopy converted to exploratory laparotomy and peritoneal lavage with intra-abdominal drain placement Implants: 2 large pieces of Surgicel towards the bilateral lateral pelvic aguayo Intra-abdominal drain placements 19 Malay round Alexis drains for pelvic drainage Surgeon: Toño Villegas Rehab Department Manager: Surgical dayton Gonsalez Circulating nurse Celine Love Anesthesia: General (Vanita Woods and Dr. Love) Estimated blood loss (mL): 100 IV fluids (mL): 2,000 Urine output (mL): 100 Condition: stable Disposition: ICU Procedure: After identifying the patient in the holding area, was taken to the operating room, placed in supine position, intubated by anesthesia, prophylactic IV antibiotics were given per protocol. Romano catheter was inserted by the circulating nurse revealing clear urine,time- out was done verifying the patient's name/date of /planned procedure and destination after the procedure, all were in agreement Prep and drape of the abdomen was done under the usual sterile technique a supraumblical incision a Black trocar technique was used through an supraumbilical skin incision a gaush of pus was appreciated so I decided to convert to Laparotomy I extended the supraumbilical incision caudad and cephalad,Cautery was used to divide the subcutaneous tissue and the midline fascia and the peritoneal cavity was entered. There was more robina pus within the abdominal cavity yet there was no no succus or stools. Omental adhesions were appreciated upon entrance to the abdominal cavity,all taken down by cauterization under direct visualization, The Mario self- retaining retractor was used for exposure. Omental adhesions were appreciated towards the pelvis midline and lateral pelvic wall that was also taken down,pockets of pus between small bowel loops and different compartments of the abdominal cavity was appreciated particularly towards the right side of the abdomen and left lower part. Sigmoid colon was stuck and frozen to the lateral pelvic wall and there was no evidence of distinct bowel perforation appreciated At this point I elected to explore the whole abdomen including liver and stomach .I started at the ligament of Treitz and running the small bowel all the way to the ileocecal junction, found to have no other involved small bowel segments, except for flakes of fibrinous exudates covering the involved bowel segment including the right side of the colon, there were no signs of ischemia. Thorough irrigation with 10 L of warm saline was achieved, the abdominal cavity looked normal,there was no evidence of bleeding except towards the pelvic region because of the raw denuded peritoneal lining due to the extensive inflammation so I elected to place 2 pieces of large Surgicel towards the lateral pelvic wall. 19 Malay round Alexis drains were inserted under direct visualization at the lower right and left sides of the abdomen and placed towards the pelvic cavity and secured to the skin there after with 20 nylon. Tap block was done using Exparel Bilateral TAP (transversus abdominous plain peripheral nerve block )block using Exparel 20 mL Exparel 40 ml Normal saline 20 ml bupivacaine 0.25% More irrigation was achieved followed by suction, double counts of instruments, needles and sponges was then completed. The midline fascia was closed using a looped #1 PDS under direct visualization. The subcutaneous tissue was extensively irrigated and the skin was then approximated using skin nico, sparing in between skin nico wound gaps that were packed by wet-to-dry Kerlix,followed by application of dry ABDs and tape. Patient was then remained intubated and transferred directly to the intensive care unit for more resuscitation I was present for the whole entire procedure
[2020-04-14 01:54] LABS: Glucose Point of Care 100 mg/dL (70-110)
--- NOTE | 2020-04-14 02:32 | PC.NURSE ---
Non-invasive Hemodynamics/Hypothermia Found cool and clammy with beaded sweat and weak and thready pulses. Pt hooked up to cheetah. Baseline results, SVI 33, CI 3.3, CO 60, TPRI 2234. BP 124/86, HR 98. Rectal temp 95.6, rewarming device placed on patient.
[2020-04-14] MEDS: aztreonam 2,000 MG in sodium chloride 0.9% (plus) 100 ML 200 MG IV (02:45)
[2020-04-14] MEDS: dextrose 5%-ns + KCl 20 20 MEQ/1,000 ML BAG 100 MEQ IV (02:45)
[2020-04-14 03:03] LABS: Urine Appearance Cloudy (CLEAR); Urine Color Yellow (Yellow); pH Urine 5 (5-7)
[2020-04-14 03:04] LABS: ABG PCO2 48.6 mmHg (35-45); ABG PH Result 7.17 (7.35-7.45); Base Excess ABG -10.8 mmol/L (-2.0-2.0); Blood Gas Operator Identificat HARKR; Blood Gas Sample Site Brachial, left; Blood Gas Sample Type Arterial; HCO3 ABG 17.7 mmol/L (22-26); Oxygen Device VENT; PO2 ABG 94.8 mmHg (80.0-100.0)
[2020-04-14 03:04] LABS: Bilirubin Urine Neg (NEGATIVE); Blood Urine 3+ (Negative); Glucose Urine UA Norm (Normal); Ketones Urine Negative (Negative); Leukocyte Esterase Urine Negative (Negative); Nitrate Urine Negative (Negative); Protein Urine Trace (Negative); Urobilinogen Urine 1 mg/dL (Negative)
[2020-04-14 03:05] LABS: Add Urine Culture? Yes; Add Urine Microscopic? YES; Bacteria Urine 1+; RBC Urine 25-40 /hpf (0-2)
[2020-04-14 03:35] LABS: Urine Creatinine 79 mg/dL (28-217)
[2020-04-14 04:04] LABS: Urine Random Sodium 11 mmol/L
[2020-04-14 04:25] LABS: Lactate (Lactic Acid level) 6.4 mmol/L (0.5-2.2)
[2020-04-14 04:26] LABS: Urine Random Potassium 24 mmol/L
[2020-04-14] MEDS: propofol 1,000 MG/100 ML INJ 4.6 MG IV (04:40)
--- NOTE | 2020-04-14 04:47 | XR_ITS ---
WS: [id number] EXAM: AP CHEST: PORTABLE UPRIGHT DATE OF EXAM: 04/14/2020, 0503 hours COMPARISON: Chest x-ray from 03/17/2016. HISTORY: Patient is 54 years old with perforated bowel status post surgery. ET and OG placement.. FINDINGS: The cardiac silhouette is normal in size. The mediastinal contours show interval placement of an e ndotracheal tube ending midclavicular level. Enteric tube crosses the thoracic esophagus and is coile d in the area of the stomach. The pulmonary vascularity is normal. Right lung is clear. There is c onsolidation in the left lung base behind the heart most likely atelectasis. There is no effusion or pneumothorax. No acute bony abnormality is seen. XR/XR chest 1V portable [id number] IMPRESSION: Supporting devices in satisfactory position. Left retrocardiac infiltrate most likely representing atelectasis.
[2020-04-14 04:49] LABS: Albumin Level 1.7 g/dL (3.5-5.2); Alkaline Phosphatase 135 IU/L (35-105); Calcium 6.8 mg/dL (8.5-10.5); Carbon Dioxide 12 mmol/L (22-29); Chloride 90 mmol/L (98-107); Globulin 4.3 g/dL (1.3-4.6); Glomerular Filtration Rate 13.7 mL/min (90-130); Glucose 151 mg/dL (65-115); Osmolality Calculated 267 mOsm/kg (285-295); Sodium 127 mmol/L (136-145); Total Bilirubin 1.1 mg/dL (0.15-1.2)
[2020-04-14 04:56] LABS: Anion Gap 29.6 (5-19); Potassium 4.6 mmol/L (3.5-5.1)
[2020-04-14 04:57] LABS: Alanine Aminotransferase 17 U/L (0-33); Aspartate Amino Transferase 44 U/L (0-32)
[2020-04-14 04:58] LABS: Blood Urea Nitrogen 88 mg/dL (6-20)
[2020-04-14 05:00] LABS: ABG PCO2 43.5 mmHg (35-45); Arterial Blood Gas Hematocrit 42.1 % (37-47); Base Excess ABG -16.8 mmol/L (-2.0-2.0); Blood Gas Sample Site Brachial, left; Blood Gas Sample Type Arterial; HCO3 ABG 12.8 mmol/L (22-26); Oxygen Device VENT
--- NOTE | 2020-04-14 05:39 | P.PN_ITS ---
Subjective Subjective: Interval history: 05:40 am Patient continues to be in critical condition on mechanical ventilation, started to have fluctuating blood pressure and showing worsening sepsis and septic shock over the past couple of hours or so per nurse's description, I was contacted around 5:00 in the morning with the patient's deterioration and a ready Dr. Chavez was on board resuscitating the patient and was started on levo fed. Family was contacted by the overall critical condition by Dr. Rodgers and ER underway to see Ms. Jones. Chest x-ray was obtained that shows insignificant findings Vitals/I&O/Wt Last Vital Signs Temp 98.2 F 04/13/20 22:12 Pulse 89 04/14/20 05:00 Resp 14 04/14/20 05:04 BP 98/66 04/14/20 04:00 Pulse Ox 92 04/14/20 05:00 04/13/20 04/13/20 04/14/20 14:59 22:59 06:59 Intake Total 200 / 200 2600 / 2800 Output Total 400 / 400 Balance 200 / 200 2200 / 2400 Weight last 48 hrs Weight 170 lb Physical Exam Narrative: EXAM NARRATIVE: Patient is is intubated and on mechanical ventilation requiring pressors BMI 33 Head and neck examination PERRLA no masses no cervical lymphadenopathy no jaundice NG in place w gastric content Cardiac examination audible S1-S2 no murmurs no gallops no arrhythmias Chest is clear bilateral,abscence of Rhonchi or wheezes,no surgical emphysema Abdomen nontender nondistended soft no organomegaly guarding or rigidity/no si gns of peritonitis, dressing in place and bilateral lower pelvic drains in place with sanguinous output. Wound bed is clean dressing was done bedside Romano catheter in place Extremities no cyanosis no clubbing no edema Urinary Catheter Management^: Romano: Cath Placed During This Visit: yes Urinary Catheter Date of Insertion: 04/13/20 Urinary Catheter Time of Insertion: 22:20 Data : 04/14/20 18:20 04/15/20 04:05 A&P Assessment and plan (1) Sepsis: Continue sepsis protocol Levo fed started IV fluid resuscitation Blood cultures Sepsis control achieved by laparotomy and drainage of multiple intra-abdominal abscesses yet the patient is in phase of SIRS. Family updates including the daughter Ms. Pimentel and Ms. Hansen patient's sister and Mr. Wolfe patient's father bedside make him understand that the patient's in a critical condition. Status: Acute (2) Bowel perforation: Plan: PLAN OF CARE: CVS: Continue continuous cardiac monitoring and pressors Oncologic DVT prophylaxis Heparin 5000 subcu every 8 hours PULMONARY: Mechanical ventilation per hospitalist service GI: Continue NG tube to low intermittent wall suction NUTRITION:shall Patient continues to be on mechanical ventilation and pressors will insert PICC line and start TPN RENAL: Continue monitoring kidney functions Strict I's and O's Continue electrolyte protocols for replacement including calcium potassium and magnesium INFECTIOUS DISEASE: Per hospitalist service NEUROLOGY: On mechanical ventilation and sedation MOBILITY: Consult physical therapy SKIN AND WOUND: Daily wet-to-dry dressing change and packing of the abdominal wound Pain control; IV pain medication Family updated with regard to overall critical condition of the patient and set expectations Status: Resolved Attestations Medical Necessity Statement*: Medical necessity care is expected to cross 2 midnights Time Spent in Patient Care: (>than 50% of time spent in counselling and/or direct pt care on unit) . Coding Level of Care Code Acute Clerical Dentist Assistant for Pretty Waggoner Diagnoses Sepsis A41.9 Bowel perforation K63.1
[2020-04-14] MEDS: sodium chloride 0.9% 500 ML 999 ML IV (05:50)
[2020-04-14] MEDS: sodium bicarbonate 8.4% 1 mEq/mL 50mL Syr 50 MEQ IVP (06:21)
[2020-04-14] MEDS: sodium bicarbonate 150 MEQ in dextrose 5% 1,000 ML IV ×3 (06:23→22:47)
[2020-04-14] MEDS: EPINEPHrine 2.5 MG in sodium chloride 0.9% 250 ML 12.1 MG IV (06:58)
[2020-04-14] MEDS: cefepime 2,000 MG in sodium chloride 0.9% (plus) 50 ML 100 MG IV (07:03)
[2020-04-14] MEDS: metroNIDAZOLE IV 500 MG/100 ML PREMIX 100 MG IV ×3 (07:06→19:42)
--- NOTE | 2020-04-14 07:30 | PC.NURSE ---
0700- RECEIVED REPORT FROM WAX BALL KNOCK OUT WORKER @ BEDSIDE D/T PT CRITICAL CONDITION. DR ORTEGA FROM ANESTHESIA AT BEDSIDE TO PUT IN A RIGHT RADIAL ARTERIAL LINE & A CENTRAL VENOUS CATHETER. PT TOLERATED WELL. CXR ORDERED TO VERIFY PLACEMENT. NG WAS ADVANCED D/T HAVING BEEN PULLED OUT WITH REPOSITIONING. SCD'S ON/WORKING FAMILY AT BEDSIDE. DR KEMP & DR THURSTON AT BEDSIDE SEVERAL DIFFERENT TIMES THIS MORNING. ABDOMINAL INCISION REMAINS COVERED WITH DRESSINGS. MICHELLE DRAINING SEROSANG DRAINAGE.
--- NOTE | 2020-04-14 07:38 | ANES.PROC ---
Anesthesia Procedures Procedure/Date: 04/14/20 Arterial Line: Time Out Performed: Yes Consent: requested by attending/covering physician Size (Gauge): 20 Technique Used: guide wire technique Post-Procedure: dry sterile dressing placed Patient Tolerated Procedure: well Complications: none Site: right and radial Central Venous Insert: Central Venous Line: Left subclavian CVL, 7fr. 3-lumen 20cm Time Out Performed: Yes Consent: requested by attending/covering physician and risks and benefits reviewed Central Line: New Anesthesia monitors: pulse oximetry, EKG, BP cuff and oxygen Vein cannulated: left subclavian Post procedure: Obtain Chest X-Ray and Other (Blood aspirated through ports)
--- NOTE | 2020-04-14 07:39 | XR_ITS ---
WS: [id number] EXAM: AP CHEST: PORTABLE UPRIGHT DATE OF EXAM: 04/14/2020, 0749 hours COMPARISON: Chest x-ray from 0503 hours same date. HISTORY: Patient is 54 years old with central line placement.. FINDINGS: The cardiac silhouette is considered slightly enlarged but stable. The mediastinal contours again demonstrate an enteric tube and endotracheal tube in stable position. New left subclavian central griselda ous catheter is in place with the tip ending in the SVC region. The mediastinal contours are otherwis e normal.. The pulmonary vascularity is normal. Right lung is clear. Minimal infiltrate in the lef t lung appears less apparent suggesting resolving atelectasis. There is no effusion or pneumothorax. No acute bony abnormality is seen. XR/XR chest 1V portable [id number] IMPRESSION: New left subclavian central venous catheter ending in the SVC region. No pneumo thorax. Supporting devices in satisfactory position. Slightly regressing left base infiltrate/atelectasis.
--- NOTE | 2020-04-14 08:00 | PC.NURSE ---
Shift Events: Patient arrived from surgery with staff intubated and sedated. Temp 97.6 upon arrival. Patient bathed and linen changed. Patient assessed by this nurse. MICHELLE drains emptied, skin assessed. After patient was bathed, this nurse noted that patient was diaphoretic and skin was cool. Temp checked rectally and showed a temp of 95.6. Rectal probe placed for continuous monitoring and a bear hugged was placed. Neuro assessment completed at 0257 and she was given a GCS of 3. Pulses were weak, pupils equal and reactive but sluggish. I notified Dr. Chavez of these events and also confirmed that he wanted Propofol started. Dr. Chavez confirmed the need for Propofol; no additional orders received at that time. At 0444, I notified Dr. Chavez that I was unable to get a BP on her, even manually. A second nurse also attempted to get a manual BP on patient was unsuccessful as well. At this time, patient's SpO2 started to drop and I increased her FiO2 to 90% and notified RT. Skin reassessment showed that her skin was beginning to mottle, she remained diaphoretic and cold. Patient's FiO2 increased to 100% with a PEEP of 10 with an SpO2 of 89%. LA came back at 6.2. This was relayed to Dr. Chavez; Dr. Chavez stated that he would be down to assess patient. Family notified of events. Levophed was initiated, a 1L bolus of NS was given and BiCarb drip was started as well. Dr. Villegas was also notified. An A-line was successfully placed by Anesthesia and initial BP reading was 60's systolic. Epi started and Central line placed.
--- NOTE | 2020-04-14 08:06 | P.PN_ITS ---
Subjective Subjective: Interval history: Patient was very hypotensive and mottled this morning. She was started on pressors and IV fluids along with antibiotics. This morning she is intubated but does not appear to be sedated. Discussed with Dr. Reyes this morning. Patient had very large amount of pus when abdominal cavity was opened. Washout was performed but no obvious site of perforation was found. She had 75 mL urinary output. Creatinine is up along with lactic acid. Blood pressure during my evaluation is 80s over 50s. Oxygenation is not an issue. Chest x-ray looks normal with left central line in good place without evidence of pneumothorax on my review. Art line was placed and functioning well. Vitals/I&O/Wt Last Vital Signs Temp 98.2 F 04/13/20 22:12 Pulse 97 04/14/20 07:45 Resp 14 04/14/20 05:04 BP 109/67 04/14/20 07:15 Pulse Ox 97 04/14/20 07:45 04/13/20 04/14/20 04/14/20 22:59 06:59 14:59 Intake Total 200 / 200 2600 / 2800 507.663 / 507.663 Output Total 835 / 835 Balance 200 / 200 1765 / 1965 507.663 / 507.663 Weight last 48 hrs Weight 77.111 kg Physical Exam Const: OTHER: Intubated. Opens eyes but does not follow commands or answer by nodding or closing eyes. Lethargic Resp: COMMON NORMALS: clear to auscultation bilaterally AUSCULTATION: clear to auscultation bilaterally OTHER: Mechanically ventilated. Cardio: COMMON NORMALS: regular rate, regular rhythm and S2 normal heart sound present RATE: regular rate RHYTHM: regular rhythm HEART SOUNDS: S2 normal heart sound present OTHER: No lower extremity edema GI: OTHER: Abdomen appears slightly distended. Soft. Midline incision dressed. Neuro: COMMON NORMALS: no focal motor deficits Urinary Catheter Management^: Romano: Cath Placed During This Visit: yes Reason for Continuing Indwelling Catheter: Accurate Measurement of Urinary Output in Critically Ill Patients Urinary Catheter Date of Insertion: 04/13/20 Urinary Catheter Time of Insertion: 22:20 Data : 04/13/20 19:56 04/14/20 03:20 Micro: Microbiology 04/14/20 06:41 Blood Culture - Preliminary Blood SPECIMEN COLLECTED 04/14/20 06:34 Blood Culture - Preliminary Blood SPECIMEN COLLECTED A&P Assessment and plan (1) Bowel perforation: Status: Resolved (2) Acute kidney injury: Prerenal. High risk for progressing to ATN given episodes of hypotension. Status: Acute (3) Generalized anxiety disorder: Status: Chronic (4) Dehydration with hyponatremia: Status: Acute (5) Severe sepsis with acute organ dysfunction due to Gram negative bacteria: As exhibited by tachycardia and leukocytosis as well as elevated lactic acid. Patient had normal respiration and was afebrile. Status: Acute (6) Septic shock: Status: Acute (7) Hypokalemia: Present admission Status: Acute Additional A&P Information PLAN: Continue Levophed and start patient on vasopressin. Gradually wean off epinephrine if blood pressure permits. Continue with aggressive IV hydration and monitoring of urinary output. Start patient on albumin as patient is at very high risk for third spacing and this should also help with blood pressure. Although patient's sepsis appears to be due to gram-negative bacteria given her critical condition we will add vancomycin. Patient is currently on cefepime and Flagyl. She received Levaquin yesterday. Discussed with RN and we will use fentanyl and Versed as needed for sedation and pain control with close monitoring of blood pressure. Attestations Medical Necessity Statement*: Patient is critically ill requiring close inpatient monitoring and treatment. Critical Care Time: Critical Care Time (min): 50 Procedures Arterial Line Size (Gauge): 20 Coding Level of Care Code Acute Negative Cleaner for [facility] Fwd Diagnoses Bowel perforation K63.1 Acute kidney injury N17.9 Generalized anxiety disorder F41.1 Dehydration with hyponatremia E86.0; E87.1 Severe sepsis with acute organ dysfunction due to Gram negative bacteria A41.50; R65.20 Septic shock A41.9; R65.21 Hypokalemia E87.6
--- NOTE | 2020-04-14 08:15 | XR_ITS ---
WS: [id number] EXAM: AP CHEST: PORTABLE UPRIGHT DATE OF EXAM: 04/14/2020, 0814 hours COMPARISON: Chest x-ray from 0749 hours. HISTORY: Patient is 54 years old with enteric tube placement position check. FINDINGS: The cardiac silhouette is slightly enlarged and similar The mediastinal contours are only partiall y visualized. The enteric tube crosses the thoracic esophagus and overlies the area of the stomach. The pulmonary vascularity is normal. Lung bases are clear no effusion seen XR/XR chest 1V portable [id number] IMPRESSION: Enteric tube ends in the stomach region.
[2020-04-14] MEDS: vancomycin 1,000 MG in sodium chloride 0.9% 250 ML 250 MG IV (08:27)
[2020-04-14 09:53] LABS: ABG PH Result 7.08 (7.35-7.45)
[2020-04-14] MEDS: HYDROmorphone 1 mg/mL INJ 1 mL 2 MG IVP (10:05)
[2020-04-14 10:19] LABS: ABG PCO2 25.7 mmHg (35-45); Arterial Blood Gas Hematocrit 29.1 % (37-47); Base Excess ABG -16.4 mmol/L (-2.0-2.0); Blood Gas Allen Test Pos; Blood Gas Operator Identificat BD; Blood Gas Sample Type Arterial; HCO3 ABG 10.1 mmol/L (22-26); PO2 ABG 80.3 mmHg (80.0-100.0)
[2020-04-14] MEDS: norepinephrine 8 MG in dextrose 5 % 500 ML 53.3 MG IV (10:37)
--- NOTE | 2020-04-14 15:56 | PC.RESP ---
SMOKING CESSATION INFORMATION SENT TO PATIENT.
[2020-04-14 16:09] LABS: ABG PH Result 7.42 (7.35-7.45); Alveolar-Arterial Oxygen Gradi 31.9 mmHg (5-10); Arterial Blood Gas Hematocrit 34.1 % (37-47); Base Excess ABG -4.9 mmol/L (-2.0-2.0); Blood Gas Allen Test Pos; Blood Gas Operator Identificat BD; Blood Gas Sample Site ALINE; Blood Gas Sample Type Arterial; Carboxyhemoglobin 0.7 %THgb (0.4-20.1); HCO3 ABG 18.6 mmol/L (22-26); HGB O2 Sat 91.9 % (95-100); Ionized Calcium Level - ABG 0.8 mmol/L (1.1-1.4); Oxygen Saturation ABG 93.4; PO2 ABG 72.9 mmHg (80.0-100.0); Potassium Level - ABG 2.7 mmol/L (3.5-5.0); Total Hemoglobin 11.1 g/dL (12-16)
--- NOTE | 2020-04-14 17:14 | PC.NURSE ---
DRESSING CHANGE TO ABDOMEN DONE BY DR THURSTON. WET TO DRY KERLIX PACKED MANUALLY INTO X3 AREAS LEFT OPEN ON ABDOMINAL INCISION. COVERED WITH ABD'S & SECURED WITH PAPER TAPE. TOLERATED WELL
[2020-04-14 18:44] LABS: Basophils % 0.1 %; Hematocrit 30.2 % (37.0-47.0); Hemoglobin 9.6 g/dL (11.5-15.3); Lymphocytes # 3.6 10^3/uL (0.8-4.8); Lymphocytes % 8.4 %; Mean Corpuscular HGB Conc 31.8 g/dL (30.0-36.0); Mean Corpuscular Hemoglobin 29.2 pg (28.0-34.0); Mean Corpuscular Volume 91.8 fL (81-99); Mean Platelet Volume 9.7 fL (7.4-10.4); Monocytes # 1.5 10^3/uL (0.2-0.9); Monocytes % 3.6 %; Neutrophils # 32.98 10^3/uL (1.8-7.7); Neutrophils % 78.1 %; Nucleated Red Blood Cells % 0 %; Platelet Count 472 10^3/cmm (130-400); Red Blood Count 3.29 10^6/uL (4.1-5.3); Red Cell Distribution Width 14.5 % (12.1-15.1)
[2020-04-14 19:18] LABS: White Blood Count 42.3 10^3/uL (4.0-10.0)
[2020-04-14 19:19] LABS: Slide Review Slide Review Perform
[2020-04-14] MEDS: heparin 5,000 unit/mL INJ 1 mL 5000 UNIT SUBCUT (19:38)
[2020-04-14] MEDS: midazolam 1 mg/mL INJ 2 mL 2 MG IVP (21:30)
[2020-04-14] MEDS: norepinephrine 8 MG in dextrose 5 % 500 ML 38.1 MG IV (22:34)
[2020-04-15] VITALS (74 sets, daily range): BP systolic 90–143; BP diastolic 46–107; PULSE 75–89; RESP 12–17; TEMP 35.2–36.8; O2SAT 90–100
[2020-04-15] MEDS: heparin 5,000 unit/mL INJ 1 mL 5000 UNIT SUBCUT ×2 (02:53→15:24)
[2020-04-15] MEDS: metroNIDAZOLE IV 500 MG/100 ML PREMIX 100 MG IV ×3 (02:55→20:17)
[2020-04-15] MEDS: midazolam 1 mg/mL INJ 2 mL 2 MG IVP (04:25)
[2020-04-15 04:26] LABS: Basophils % 0.1 %; Hematocrit 27.6 % (37.0-47.0); Hemoglobin 8.9 g/dL (11.5-15.3); Lymphocytes # 3.8 10^3/uL (0.8-4.8); Lymphocytes % 10.3 %; Mean Corpuscular HGB Conc 32.2 g/dL (30.0-36.0); Mean Corpuscular Hemoglobin 29.3 pg (28.0-34.0); Mean Corpuscular Volume 90.8 fL (81-99); Mean Platelet Volume 9.4 fL (7.4-10.4); Monocytes # 1.4 10^3/uL (0.2-0.9); Monocytes % 3.8 %; Neutrophils % 76.7 %; Nucleated Red Blood Cells % 0.1 %; Platelet Count 369 10^3/cmm (130-400); Red Blood Count 3.04 10^6/uL (4.1-5.3); Red Cell Distribution Width 14.4 % (12.1-15.1)
[2020-04-15 04:58] LABS: Albumin Level 2.6 g/dL (3.5-5.2); Alkaline Phosphatase 180 IU/L (35-105); Carbon Dioxide 28 mmol/L (22-29); Chloride 87 mmol/L (98-107); Globulin 2.6 g/dL (1.3-4.6); Glomerular Filtration Rate 11.1 mL/min (90-130); Glucose 168 mg/dL (65-115); Magnesium 1.9 mg/dL (1.7-2.3); Osmolality Calculated 279 mOsm/kg (285-295); Sodium 132 mmol/L (136-145); Total Bilirubin 1.3 mg/dL (0.15-1.2); Total Protein 5.2 g/dL (6.6-8.7)
[2020-04-15 05:02] LABS: Blood Urea Nitrogen 96 mg/dL (6-20); Calcium 5.3 mg/dL (8.5-10.5)
[2020-04-15 05:11] LABS: Alanine Aminotransferase 1609 U/L (0-33)
[2020-04-15 05:18] LABS: Aspartate Amino Transferase 5559 U/L (0-32)
[2020-04-15 05:22] LABS: Creatine Phosphokinase 10269 U/L (26-192)
[2020-04-15 05:50] LABS: Slide Review Slide Review Perform
--- NOTE | 2020-04-15 05:50 | PM.PN ---
Subjective Subjective: Interval history: Overall patient shows clinical improvement and continues to be on mechanical ventilation and less pressor requirement,elevation in WBC count was noticed as well as liver function tests likely a shock liver to sepsis and hypovolemia. Vitals/I&O/Wt Last Vital Signs Temp 97.1 F L 04/15/20 04:00 Pulse 77 04/15/20 05:30 Resp 12 04/15/20 01:49 BP 143/107 04/15/20 04:30 Pulse Ox 93 04/15/20 05:30 04/14/20 04/14/20 04/15/20 14:59 22:59 06:59 Intake Total 2571.956 / 2571.956 1984.575 / 4556.531 180.473 / 4737.004 Output Total 230 / 230 180 / 410 339 / 749 Balance 2341.956 / 2341.956 1804.575 / 4146.531 -158.527 / 3988.004 Weight last 48 hrs Weight 170 lb Physical Exam Narrative: EXAM NARRATIVE: Patient is conscious alert continues to be intubated on mechanical ventilator BMI 33 Head and neck examination PERRLA no masses no cervical lymphadenopathy no jaundice NG in place without evidence of hematemesis Cardiac examination audible S1-S2 no murmurs no gallops no arrhythmias Chest right-sided rhonchi no surgical emphysema Abdomen nontender moderately distended soft no organomegaly guarding or rigidity/no signs of peritonitis Dressing minimally soaked and pelvic drains in place with sero-sanguinous output Romano catheter in place with minimal output Left subclavian central line in place and right radial arterial line Urinary Catheter Management^: Romano: Cath Placed During This Visit: yes Reason for Continuing Indwelling Catheter: Accurate Measurement of Urinary Output in Critically Ill Patients Urinary Catheter Date of Insertion: 04/13/20 Urinary Catheter Time of Insertion: 22:20 Data : 04/15/20 04:05 04/15/20 04:05 Micro: Microbiology 04/14/20 06:41 Blood Culture - Preliminary Blood SPECIMEN COLLECTED 04/14/20 06:34 Blood Culture - Preliminary Blood SPECIMEN COLLECTED A&P Assessment and plan (1) Sepsis: Continue sepsis protocol Continue Levophed and will stop vasopressin Continue IV fluid resuscitation Follow on blood cultures Sepsis control achieved by laparotomy and drainage of multiple intra-abdominal abscesses yet the patient is in phase of SIRS. Wean off mechanical ventilation pressure support trials and monitor closely with ABG overall clinical progress Status: Acute (2) Bowel perforation: Plan: PLAN OF CARE: CVS: Continue continuous cardiac monitoring and pressors Pharmacologic DVT prophylaxis Heparin 5000 subcu every 12 h PULMONARY: Mechanical ventilation per hospitalist service and will order a chest x-ray Nebs therapy as as needed GI: Continue NG tube to low intermittent wall suction PPI for prophylaxis since patient mechanical ventilator NUTRITION:shall Patient continues to be on mechanical ventilation and pressors will consider TPN yet quite concerned about the liver status. RENAL: Continue monitoring kidney functions Strict I's and O's Continue electrolyte protocols for replacement including calcium potassium and magnesium Nephrology consultation with coordination with Dr. Harper INFECTIOUS DISEASE: Per hospitalist service NEUROLOGY: On mechanical ventilation and sedation MOBILITY: Consult physical therapy SKIN AND WOUND: Daily wet-to-dry dressing change and packing of the abdominal wound Pain control; IV pain medication Family updated with regard to overall critical condition of the patient and set expectations including potential hemodialysis if needed and recommended by nephrology service with coordination with hospitalist service. Status: Resolved Attestations Medical Necessity Statement*: Medical necessity care is expected to cross 2 midnights Procedures Arterial Line Size (Gauge): 20 Coding Level of Care Code Acute Earth Science Technician for [facility] Fwd Diagnoses Sepsis A41.9 Bowel perforation K63.1
[2020-04-15 05:55] LABS: White Blood Count 36.7 10^3/uL (4.0-10.0)
--- NOTE | 2020-04-15 06:02 | XR_ITS ---
WS: [id number] EXAM: AP CHEST: PORTABLE UPRIGHT DATE OF EXAM: 04/15/2020, 0606 hours COMPARISON: Chest x-ray from one day prior. HISTORY: Patient is 54 years old with sepsis. Follow-up. FINDINGS: The cardiac silhouette is stable and within normal limits The mediastinal contours are similar. Neil pporting devices are in unchanged position. The pulmonary vascularity is normal. Right lung is ana ar. There is developing linear atelectasis left mid chest. Hazy infiltrate within the left hilar nisha hilar region and lower lobe region less apparent otherwise. There is no effusion or pneumothorax. N o acute bony abnormality is seen. XR/XR chest 1V portable [id number] IMPRESSION: Supporting devices in stable satisfactory position. Developing linear infiltrate suggesting atelectasis left midlung. Lungs otherwi se clear.
[2020-04-15 06:23] LABS: ABG PCO2 43.7 mmHg (35-45); ABG PH Result 7.44 (7.35-7.45); Arterial Blood Gas Hematocrit 28.3 % (37-47); Base Excess ABG 4.7 mmol/L (-2.0-2.0); Blood Gas Allen Test Pos; Blood Gas Sample Site Radial, right; Blood Gas Sample Type Arterial; Carboxyhemoglobin 0.7 %THgb (0.4-20.1); HCO3 ABG 29.4 mmol/L (22-26); Ionized Calcium Level - ABG 0.7 mmol/L (1.1-1.4); Methemoglobin 0.8 % (0.4-1.5); Oxygen Saturation ABG 95.4; Potassium Level - ABG 2.5 mmol/L (3.5-5.0); Total Hemoglobin 9.2 g/dL (12-16)
[2020-04-15 06:24] LABS: Alveolar-Arterial Oxygen Gradi 29.6 mmHg (5-10); Oxygen Device VENT
[2020-04-15] MEDS: calcium gluconate 0.1 gm/mL 10% SDV 10mL 1 GM IVP (06:36)
[2020-04-15] MEDS: cefepime 1,000 MG in sodium chloride 0.9% (plus) 50 ML 100 MG IV (06:36)
--- NOTE | 2020-04-15 07:29 | PC.NURSE ---
Dr. Lam notified of critical labs for WBC, LFT's, CK, BUN, and Calcium. Shift Events: Discussed plan of care with Dr. Villegas. Discontinued Sodium BiCarb and Vaso. Added Protonix. Notified Dr. Mesa that the last lactic acid drawn was 12 and that a repeat Lactic Acid had not been completed. Dr. Mesa stated that he would order this. May need dialysis in the future due to IRMA. Vent settings changed from CMV to PS. Patient tolerated this well. Pressures improved and was able to titrate down on Levophed. Patient remains alert and oriented. Able to answer questions and participate in her care.
[2020-04-15] MEDS: pantoprazole 40 mg SDV IVP (08:10)
[2020-04-15] MEDS: levofloxacin-dextrose 5 % 750 MG/150 ML PREMIX 100 MG IV (08:19)
--- NOTE | 2020-04-15 08:46 | P.PN_ITS ---
Subjective Subjective: Interval history: Patient had approximate 700 mL of urinary output since yesterday. She is off vasopressin drip and currently only on norepinephrine drip at 8 mcg/min. She is intubated and slightly sedated. She is sitting upright and denies being in any discomfort. Denies chest pain shortness of breath or abdominal pain. She is able to write on the board and moves all extremities. She appears to answer questions appropriately. She follows commands. Her white blood cell count is better compared to yesterday evening. Her hemoglobin dropped down to 8.9. Her creatinine is trending up and 4.2 this morning with evidence of significant rhabdomyolysis. Her liver enzymes are up and appears to be related to rhabdomyolysis as well as sepsis. Cultures are still pending. Vitals/I&O/Wt Last Vital Signs Temp 97.1 F L 04/15/20 04:00 Pulse 77 04/15/20 05:30 Resp 13 04/15/20 07:49 BP 143/107 04/15/20 04:30 Pulse Ox 93 04/15/20 05:30 04/14/20 04/15/20 04/15/20 22:59 06:59 14:59 Intake Total 1984.575 / 4556.531 1445.593 / 6002.124 Output Total 180 / 410 339 / 749 Balance 1804.575 / 4146.531 1106.593 / 5253.124 Weight last 48 hrs Weight 77.111 kg Physical Exam Const: OTHER: Intubated. Opens eyes but does not follow commands or answer by nodding or closing eyes. Lethargic Resp: COMMON NORMALS: clear to auscultation bilaterally AUSCULTATION: clear to auscultation bilaterally OTHER: Mechanically ventilated. Cardio: COMMON NORMALS: regular rate, regular rhythm and S2 normal heart sound present RATE: regular rate RHYTHM: regular rhythm HEART SOUNDS: S2 normal heart sound present OTHER: No lower extremity edema GI: COMMON NORMALS: Soft to palpation and non-tender PALPATION: Yes Soft to palpation OTHER: Midline incision dressed. Neuro: COMMON NORMALS: no focal motor deficits OTHER: Appears to be well oriented. Urinary Catheter Management^: Romano: Cath Placed During This Visit: yes Reason for Continuing Indwelling Catheter: Accurate Measurement of Urinary Output in Critically Ill Patients Urinary Catheter Date of Insertion: 08/18/20 Urinary Catheter Time of Insertion: 22:20 Data : 04/15/20 04:05 04/15/20 04:05 Micro: Microbiology 04/14/20 06:41 Blood Culture - Preliminary Blood NEGATIVE TO DATE 04/14/20 06:34 Blood Culture - Preliminary Blood NEGATIVE TO DATE A&P Assessment and plan (1) Bowel perforation: Status: Resolved (2) Acute kidney injury: Prerenal initially and now appears to be renal. Acute tubular necrosis with multiple etiologies including rhabdomyolysis and hypotension Status: Acute (3) Generalized anxiety disorder: Status: Chronic (4) Dehydration with hyponatremia: Status: Acute (5) Severe sepsis with acute organ dysfunction due to Gram negative bacteria: As exhibited by tachycardia and leukocytosis as well as elevated lactic acid. Patient had normal respiration and was afebrile. Status: Acute (6) Septic shock: Status: Acute (7) Hypokalemia: Present admission Status: Acute (8) Liver enzyme elevation: Status: Acute (9) Rhabdomyolysis: Status: Acute Additional A&P Information PLAN: Continue Levophed drip and wean off as blood pressure permits. Continue current antibiotics and add Levaquin which patient had on first day. Discussed case with Dr. Lott, tele-nephrology who will see patient in consultation. Patient was started on half-normal saline with 20 of potassium and bicarb this morning. She may need to have diuresis down the road. Hopefully her kidney function plateaus and starts improving and hopefully we will not advance to dialysis. Awaiting culture results. I will request echocardiogram to evaluate patient's wall motion and ejection fraction. Patient clinically does not appear to be in heart failure at this point but it is good to assess her heart function considering how ill patient is. Discussed with Dr. Reyes earlier today. He does not want to use GI tract for now and will consider starting patient on TPN. Patient is currently on pressure support mechanical ventilation and I will keep patient intubated for now while need for aggressive IV hydration is still there. Attestations Medical Necessity Statement*: Patient is critically ill requiring close ICU monitoring and treatment. Critical Care Time: Critical Care Time (min): 40 Procedures Arterial Line Size (Gauge): 20 Coding Level of Care Code Acute Master Black Belt for [facility] Fwd Diagnoses Bowel perforation K63.1 Acute kidney injury N17.9 Generalized anxiety disorder F41.1 Dehydration with hyponatremia E86.0; E87.1 Severe sepsis with acute organ dysfunction due to Gram negative bacteria A41.50; R65.20 Septic shock A41.9; R65.21 Hypokalemia E87.6 Liver enzyme elevation R74.8 Rhabdomyolysis M62.82
--- NOTE | 2020-04-15 09:01 | USCV_ITS ---
Irma Jones Age: 54 Gender: F : 1965 Exam Date: 04/15/2020 09:37 Ordering Phys: Pedro Harper MD Technologist: Daren Varghese Exam Location: [facility] [place] Indication: AL BP: 90 / 44 HR: 80 Rhythm: Sinus Technical Quality: Technically difficult study MEASUREMENTS (Male / Female) Normal Values 2D ECHO LV Diastolic Diameter PLAX 4.2 cm 4.2 - 5.9 / 3.9 - 5.3 cm LV Systolic Diameter PLAX 2.6 cm IVS Diastolic Thickness 1.2 cm 0.6 - 1.0 / 0.6 - 0.9 cm IVS Systolic Thickness 1.5 cm LVPW Diastolic Thickness 1.1 cm 0.6 - 1.0 / 0.6 - 0.9 cm LVPW Systolic Thickness 1.5 cm LVOT Diameter 2.5 cm LV Ejection Fraction 2D Teich 67.1 % LV Ejection Fraction MOD 2C 78.2 % LV Ejection Fraction 2C AL 79.1 % LA Diameter 4.6 cm LA Width 3.6 cm LA Height 4.6 cm RA Width 4.0 cm RA Height 4.1 cm Aorta at Sinotubular Diameter 1.4 cm M-MODE LV Diastolic Diameter MM 5.4 cm 4.2 - 5.9 / 3.9 - 5.3 cm LV Systolic Diameter MM 3.1 cm LV Ejection Fraction MM Teich 73.7 % IVS Diastolic Thickness MM 1.1 cm 0.6 - 1.0 / 0.6 - 0.9 cm IVS Systolic Thickness MM 1.5 cm LVPW Diastolic Thickness MM 1.4 cm 0.6 - 1.0 / 0.6 - 0.9 cm LVPW Systolic Thickness MM 1.7 cm RV Diastolic Diameter MM 1.8 cm Aortic Annulus Diameter 3.3 cm LA Ao Ratio MM 1.4 MV E Point Septal Separation 0.6 cm DOPPLER AV Peak Velocity 162.0 cm/s LVOT Peak Velocity 146.0 cm/s AV Area Cont Eq vti 4.5 cm squared AV Area Cont Eq pk 4.5 cm squared MV Area PHT 5.0 cm squared Mitral E to A Ratio 0.8 MV E' Velocity 9.0 cm/s Mitral E to MV E' Ratio 6.3 Mitral E to LV E' Lateral Ratio 6.6 Mitral E to LV E' Septal Ratio 6.0 TR Peak Velocity 125.0 cm/s TR Peak Gradient 6.3 mmHg TV Peak E Velocity 67.0 cm/s Right Atrial Pressure 3.0 mmHg Pulmonary Artery Systolic Pressu 9.3 mmHg FINDINGS Left Ventricle Normal left ventricular cavity size. Normal left ventricular systolic function. No regional wall motion abnormalities. Left ventricular ejection fraction is estimated at 73 %. Grade I/IV diastolic dysfunction (abnormal relaxation filling pattern), normal to mildly elevated filling pressures. Right Ventricle The right ventricle is normal in size and function. Right Atrium The right atrium is normal in size. Left Atrium The left atrium is normal in size. Mitral Valve Structurally normal mitral valve without significant stenosis or prolapse. There is no mitral regurgitation. Aortic Valve Structurally normal aortic valve without significant sclerosis or stenosis. There is no aortic regurgitation. Tricuspid Valve Structurally normal tricuspid valve without significant stenosis or regurgitation. Pulmonary artery systolic pressure is normal. Pulmonic Valve Structurally normal pulmonic valve without significant stenosis. There is no pulmonic regurgitation. Pericardium Normal pericardium without effusion. Aorta Normal ascending aorta dimension. CONCLUSIONS 1-Normal left ventricular cavity size. Normal left ventricular systolic function. No regional wall motion abnormalities. Left ventricular ejection fraction is estimated at 73 %. Grade I/IV diastolic dysfunction (abnormal relaxation filling pattern), normal to mildly elevated filling pressures. 2-There is no pericardial effusion. 3-No significant valve abnormalities. 4-Pulmonary artery systolic pressure is within normal limits. 5-Right atrial pressure is around 5 mm of mercury. 6-There are no prior echocardiogram studies to compare. Maximino Coon MD (Electronically Signed) Final Date: 15 April 2020 21:08 S
--- NOTE | 2020-04-15 09:24 | PM.CONSULT ---
Providers/Reason For Consult Consulting Physican/Specialty*: Shelley Zamorano DO, telenephrology Reason for Consult*: Acute kidney injury Requesting Physcian: Dr Harper Attending Physician: Toño Villegas MD History of Present Illness History of Present Illness Irma Jones is a 54 year old female presented with acute abdomen, sepsis, peritonitis. Now oligoanuric. Intubated in ICU, on levophed 8 mcg/min, awake Review of Systems General: Reports: ROS unobtainable due to medical condition Meds/Allergies Home Medications and Allergies Home Medications Medication Instructions Recorded Confirmed Last Taken Type esomeprazole magnesium 40 mg 40 mg PO QDAY 09/17/19 04/14/20 04/13/20 History capsule,delayed release hydrochlorothiazide 12.5 mg tablet 12.5 mg PO DAILY 09/17/19 04/14/20 Unknown History lovastatin 20 mg tablet 40 mg PO BEDTIME 09/17/19 04/14/20 Unknown History ondansetron HCl 4 mg tablet 4 mg PO Q8H PRN tab 09/17/19 04/14/20 Unknown History valsartan 80 mg tablet 80 mg PO QDAY 09/17/19 04/13/20 Unknown History baclofen 10 mg tablet 10 mg PO TID PRN 11/25/19 04/14/20 Unknown History gabapentin 300 mg capsule 300 mg PO BID #60 cap 11/25/19 04/14/20 Unknown Rx tizanidine 4 mg tablet 4 mg PO BID PRN #60 tab MDD 2 11/25/19 04/13/20 Unknown Rx alprazolam 1 mg tablet 1 mg PO TID PRN #90 tab 01/05/20 04/14/20 Unknown Rx citalopram 40 mg tablet 40 mg PO .morning #30 tab 01/05/20 04/14/20 Unknown Rx hydroxyzine HCl 50 mg tablet 50 mg PO BID PRN #60 tab 01/05/20 04/14/20 Unknown Rx atorvastatin 40 mg PO BEDTIME 04/14/20 04/14/20 Unknown History fenofibrate 145 mg PO BEDTIME 04/14/20 04/14/20 Unknown History potassium chloride 20 meq PO BID 04/14/20 04/14/20 Unknown History trazodone 300 mg PO .bedtime PRN 04/14/20 04/14/20 Unknown History Allergies Allergy/AdvReac Type Severity Reaction Status Date / Time codeine Allergy Unknown rash, Verified 04/13/20 21:43 itching Penicillins Allergy Unknown rash, Verified 04/13/20 21:43 itching Sulfa (Sulfonamide Allergy Unknown rash, Verified 04/13/20 21:43 Antibiotics) itching Current Medications Current Medications Generic Name Dose Route Start Last Admin Trade Name Freq PRN Reason Stop Dose Admin Metronidazole 500 mg in 100 mls @ 100 mls/hr 04/14/20 03:15 04/15/20 02:55 Flagyl Iv IV 100 mls/hr Q8H BRITTNEY Administration Protocol Norepinephrine Bitartrate 4 mg 254 mls @ 0 mls/hr 04/14/20 05:00 04/14/20 23:31 / Dextrose IV Infused .Q0M BRITTNEY Titration Protocol Per Protocol Fentanyl 1,000 mcg/ Sodium 100 mls @ 0 mls/hr 04/14/20 05:00 04/15/20 04:25 Chloride IV 125 mcg/hr .Q0M BRITTNEY 12.5 mls/hr Administration Protocol Per Protocol Epinephrine HCl 2.5 mg/ Sodium 252.5 mls @ 0 mls/hr 04/14/20 06:45 04/14/20 10:19 Chloride IV 0 mcg/min .Q0M BRITTNEY 0 mls/hr Titration Protocol Per Protocol Vancomycin HCl 1,000 mg/ 250 mls @ 250 mls/hr 04/14/20 08:30 04/14/20 10:19 Sodium Chloride IV Infused Q48H BRITTNEY Infusion Protocol Albumin Human 25 gm in 100 mls @ 60 mls/hr 04/14/20 07:45 04/15/20 08:20 Albumin IV 60 mls/hr Q8H BRITTNEY Administration Vasopressin 100 unit/ Sodium 100 mls @ 0 mls/hr 04/14/20 07:45 04/15/20 05:53 Chloride IV 0 unit/min .Q0M BRITTNEY 0 mls/hr Titration Protocol Per Protocol Cefepime HCl 1,000 mg/ Sodium 50 mls @ 100 mls/hr 04/15/20 07:00 04/15/20 06:36 Chloride IV 100 mls/hr Q24H BRITTNEY Administration Protocol Norepinephrine Bitartrate 8 mg 508 mls @ 0 mls/hr 04/14/20 10:30 08/20/20 00:04 / Dextrose IV 6 mcg/min .Q0M BRITTNEY 22.9 mls/hr Titration Protocol Per Protocol Midazolam HCl 2 mg 04/14/20 19:48 04/15/20 04:25 Versed IVP 2 mg Q6H PRN Administration AGITATION Pantoprazole Sodium 40 mg 04/15/20 09:00 04/15/20 08:10 Protonix IVP 40 mg DAILY BRITTNEY Administration PFSH Acute PFSH: Medical History Generalized anxiety disorder 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, recurrent severe without psychotic features Nicotine dependence, cigarettes, uncomplicated Surgical History H/O of hysterectomy with bilateral oophorectomy Family History Mother CHF (congestive heart failure) Social History Smoking and tobacco status: current every day smoker cigarettes Packs smoked per day: 1 Alcohol intake: current Alcohol intake frequency: few times a month Household members: family Marital status: Current occupational status: unemployed History of recent travel: No Vitals/I&O/Wt Last Vital Signs Temp 97.1 F L 04/15/20 04:00 Pulse 77 04/15/20 05:30 Resp 13 04/15/20 07:49 BP 143/107 04/15/20 04:30 Pulse Ox 93 04/15/20 05:30 04/14/20 04/15/20 04/15/20 22:59 06:59 14:59 Intake Total 1984.575 / 4556.531 1445.593 / 6002.124 Output Total 180 / 410 339 / 749 Balance 1804.575 / 4146.531 1106.593 / 5253.124 Weight last 48 hrs Weight 77.111 kg Physical Exam Const: COMMON NORMALS: no acute distress Resp: COMMON NORMALS: normal respiratory effort and clear to auscultation bilaterally AUSCULTATION: clear to auscultation bilaterally Cardio: COMMON NORMALS: regular rate and regular rhythm RATE: regular rate RHYTHM: regular rhythm Extremity: GENERAL: Yes edema Urinary Catheter Management^: Romano: Cath Placed During This Visit: yes Reason for Continuing Indwelling Catheter: Accurate Measurement of Urinary Output in Critically Ill Patients Urinary Catheter Date of Insertion: 04/13/20 Urinary Catheter Time of Insertion: 22:20 Data Micro: Micro: Microbiology 04/14/20 06:41 Blood Culture - Pr eliminary Blood NEGATIVE TO TOMMIE E 04/14/20 06:34 Blood Culture - Pr eliminary Blood NEGATIVE TO TOMMIE E Other Data: Other data: CT ABD Adrenals: Mild nonspecific bilateral adrenal thickening. Kidneys and ureters: No mass. No radiodense calculi. No hydronephrosis. CK 10,269 AST 5559m ALT 1602 7.44/44/75 A&P Additional A&P Information Impression: 1. Acute oliguric kidney injury, ischemic ATN, sepsis, Rhabdomyolysis 2. Electrolyte imbalance: hypokalemia, hypocalcemia, mild hyponatremia 3. Shock liver with CT findings consistent with cirrhosis Recommend: continue IVF hydration, pressors to maintain blood pressure. Watch for metabolic alkalosis. Will likely need dialysis in next 24 - 48 hours. Procedures Arterial Line Size (Gauge): 20 Coding Level of Care Code Acute Ballistics Tester for [facility] Edilson
[2020-04-15] MEDS: potassium chloride premix 40 MEQ/100 ML PREMIX 25 MEQ IV (09:28)
[2020-04-15] MEDS: ipratropium-albuterol 3 mL Neb INHALATION ×3 (09:38→20:33)
[2020-04-15] MEDS: budesonide 0.5 mg/2 mL Neb INHALATION ×2 (09:39→20:33)
[2020-04-15] MEDS: norepinephrine 8 MG in dextrose 5 % 500 ML 30.5 MG IV (17:29)
[2020-04-15] MEDS: sodium chloride 0.9% 500 ML 999 ML IV (17:57)
--- NOTE | 2020-04-15 18:00 | PC.NURSE ---
Art poli wave form flat. Pain and swelling iwth flushing. Removed art line. Cath tip intact. No redness noted at site Pt tolerated well.
--- NOTE | 2020-04-15 19:30 | PC.NURSE ---
Shift summary: Pt alert and oriented. She remains intubated, at 40% FIO2. Able to make needs know through writing and gestures. Very slight and few abdominal sounds noted upper right quadrant. Bilat MICHELLE drains serousangiouness drainage. Potassium replacement IV done today. Per Dr Reyes, TPN considered but not going to due to elevated liver enzymes at this time. Dr Aguilera , telenephrology evaluated pt today, holding off on dialysis at this time. Unable to wean Levophed gtt, remains at 8mcg/kg. Art line cannot get a waveform nor draw blood, infiltrated while flushed therefore it was removed. Urine dark yellow with brown sediment, only 225ml output day shift.
[2020-04-15 20:01] LABS: Anion Gap 18.2 (5-19); Carbon Dioxide 28 mmol/L (22-29); Chloride 88 mmol/L (98-107); Glomerular Filtration Rate 10.8 mL/min (90-130); Glucose 93 mg/dL (65-115); Osmolality Calculated 272 mOsm/kg (285-295); Potassium 3.2 mmol/L (3.5-5.1); Sodium 131 mmol/L (136-145)
[2020-04-15 20:05] LABS: Blood Urea Nitrogen 93 mg/dL (6-20); Calcium 5.5 mg/dL (8.5-10.5)
--- NOTE | 2020-04-15 20:53 | PC.NURSE ---
Dr. Villegas notified patient abdomen taut, absent bowel sounds, and patient withdraws from abdominal palpation. Notified physician patient abdominal imaging studies have not been completed since the initial admission prior to procedure. Physician verbalized understanding, orders received.
[2020-04-15] MEDS: D5-NS 0.45% + KCL 20 mEq 20 MEQ/1,000 ML BAG 75 MEQ IV (21:55)
[2020-04-15 23:38] LABS: ABG PCO2 48.1 mmHg (35-45); ABG PH Result 7.39 (7.35-7.45); Base Excess ABG 3.9 mmol/L (-2.0-2.0); Blood Gas Allen Test Pos; Blood Gas Sample Site Radial, left; Blood Gas Sample Type Arterial; HCO3 ABG 29.3 mmol/L (22-26); Oxygen Device VENT; PO2 ABG 89.5 mmHg (80.0-100.0)
[2020-04-16] VITALS (44 sets, daily range): BP systolic 89–110; BP diastolic 43–65; PULSE 74–90; RESP 14–24; TEMP 36.1–36.6; O2SAT 90–98
[2020-04-16] MEDS: heparin 5,000 unit/mL INJ 1 mL 5000 UNIT SUBCUT (03:11)
[2020-04-16] MEDS: metroNIDAZOLE IV 500 MG/100 ML PREMIX 100 MG IV ×3 (03:14→18:15)
[2020-04-16] MEDS: ipratropium-albuterol 3 mL Neb INHALATION ×4 (03:46→20:17)
[2020-04-16 04:11] LABS: Basophils # 0.2 10^3/uL (0.0-0.1); Basophils % 0.4 %; Eosinophils % 0.1 %; Hematocrit 24.5 % (37.0-47.0); Hemoglobin 7.6 g/dL (11.5-15.3); Lymphocytes # 3.7 10^3/uL (0.8-4.8); Mean Corpuscular Hemoglobin 28.6 pg (28.0-34.0); Mean Corpuscular Volume 92.1 fL (81-99); Mean Platelet Volume 9.1 fL (7.4-10.4); Monocytes # 0.9 10^3/uL (0.2-0.9); Monocytes % 2.7 %; Nucleated Red Blood Cells % 0 %; Platelet Count 246 10^3/cmm (130-400); Red Blood Count 2.66 10^6/uL (4.1-5.3); Red Cell Distribution Width 14.9 % (12.1-15.1)
[2020-04-16 04:38] LABS: Albumin Level 3.1 g/dL (3.5-5.2); Alkaline Phosphatase 161 IU/L (35-105); Anion Gap 18.2 (5-19); Calcium 6.3 mg/dL (8.5-10.5); Carbon Dioxide 29 mmol/L (22-29); Chloride 89 mmol/L (98-107); Globulin 2.3 g/dL (1.3-4.6); Glucose 113 mg/dL (65-115); Lactate (Lactic Acid level) 1.5 mmol/L (0.5-2.2); Magnesium 1.9 mg/dL (1.7-2.3); Osmolality Calculated 278 mOsm/kg (285-295); Potassium 3.2 mmol/L (3.5-5.1); Sodium 133 mmol/L (136-145); Total Bilirubin 1.2 mg/dL (0.15-1.2); Total Protein 5.4 g/dL (6.6-8.7)
[2020-04-16 04:52] LABS: Alanine Aminotransferase 1122 U/L (0-33)
[2020-04-16 04:55] LABS: Aspartate Amino Transferase 2962 U/L (0-32); Blood Urea Nitrogen 98 mg/dL (6-20)
[2020-04-16 05:25] LABS: Slide Review Slide Review Perform
[2020-04-16 05:28] LABS: White Blood Count 33.6 10^3/uL (4.0-10.0)
--- NOTE | 2020-04-16 05:35 | P.PN_ITS ---
Subjective Subjective: Interval history: Overall patient is about the same that continues to show worsening kidney functions,improvement of liver functions. Continues to be oliguric yet she is more awake and alert. Arterial line got dysfunctional and was taken out No bowel movements Lactic acid normalized CVP 7 cm of H2O NGT 725 ml UOP 225 Drain Right 222 Left 137 Vitals/I&O/Wt Last Vital Signs Temp 97.6 F 04/16/20 04:00 Pulse 81 04/16/20 04:00 Resp 17 04/16/20 03:48 BP 110/47 04/16/20 04:00 Pulse Ox 90 04/16/20 04:00 04/15/20 04/15/20 04/16/20 14:59 22:59 06:59 Intake Total 450 / 450 1876.775 / 2326.775 168.523 / 2495.298 Output Total 120 / 120 425 / 545 1160 / 1705 Balance 330 / 330 1451.775 / 1781.775 -991.477 / 790.298 Physical Exam Narrative: EXAM NARRATIVE: Patient is conscious alert BMI 33 Head and neck examination PERRLA no masses no cervical lymphadenopathy no jaundice NG in place Cardiac examination audible S1-S2 no murmurs no gallops no arrhythmias Chest fair air entry bilateral Left subclavian vein central line in place Abdomen nontender step mildly at the incision site nondistended soft no organomegaly guarding or rigidity/no signs of peritonitis. Wound bed looks clean Dressing in place with minimal soaking of the dressing Drains right one showing serosanguineous and left one shows sanguinous output Romano catheter in place with dark urine Extremities no cyanosis no clubbing no edema Urinary Catheter Management^: Romano: Cath Placed During This Visit: yes Reason for Continuing Indwelling Catheter: Accurate Measurement of Urinary Output in Critically Ill Patients Urinary Catheter Date of Insertion: 04/13/20 Urinary Catheter Time of Insertion: 22:20 Data : 04/16/20 03:33 04/16/20 03:33 Micro: Microbiology 04/14/20 02:28 Urine Culture - Preliminary Urine,Clean Catch 04/14/20 06:41 Blood Culture - Preliminary Blood NEGATIVE TO DATE 04/14/20 06:34 Blood Culture - Preliminary Blood NEGATIVE TO DATE A&P Assessment and plan (1) Sepsis: Continue sepsis protocol Continue Levophed and will stop vasopressin Will monitor central venous pressure Continue IV fluid resuscitation Follow on blood cultures Sepsis control achieved by laparotomy and drainage of multiple intra-abdominal abscesses yet the patient is in phase of SIRS. Wean off mechanical ventilation pressure support trials and monitor closely with ABG overall clinical progress Status: Acute (2) Bowel perforation: Plan: PLAN OF CARE: CVS: Continue continuous cardiac monitoring and pressors We will hold onto pharmacologic DVT prophylaxis due to drifting H&H may require potential blood transfusion will discuss further with the hospitalist and nephrology services PULMONARY: Mechanical ventilation per hospitalist service and will order a chest x-ray Nebs therapy as as needed GI: Continue NG tube to low intermittent wall suction PPI for prophylaxis since patient mechanical ventilator NUTRITION:shall Patient continues to be on mechanical ventilation and pressors will consider TPN yet quite concerned about the liver status. RENAL: Continue monitoring kidney functions Strict I's and O's Continue electrolyte protocols for replacement including calcium potassium and magnesium Will coordinate care with Dr. Lott and Dr. Harper with regard for potential hemodialysis INFECTIOUS DISEASE: Per hospitalist service NEUROLOGY: On mechanical ventilation and sedation that when sedation is off patient is fully awake and alert MOBILITY: Consult physical therapy SKIN AND WOUND: Daily wet-to-dry dressing change and packing of the abdominal wound Pain control; IV pain medication Will continue Family Updates Status: Resolved Attestations Medical Necessity Statement*: Medical necessity care is expected to cross 2 midnights in the intensive care unit due to the critical condition of the patient requiring mechanical ventilation and pressors. Time Spent in Patient Care: (>than 50% of time spent in counselling and/or direct pt care on unit) . Procedures Arterial Line Size (Gauge): 20 Coding Level of Care Code Acute Robot Technician for g Fwd Diagnoses Sepsis A41.9 Bowel perforation K63.1
[2020-04-16] MEDS: cefepime 1,000 MG in sodium chloride 0.9% (plus) 50 ML 100 MG IV (06:26)
[2020-04-16] MEDS: sodium chloride 0.9% 1,000 ML 30 ML IV (06:27)
[2020-04-16 07:05] LABS: INR 2.09 (0.8-1.2)
[2020-04-16 07:38] LABS: Creatine Phosphokinase 19284 U/L (26-192)
--- NOTE | 2020-04-16 07:43 | PM.PN ---
Subjective Subjective: Interval history: Patient had more than 600 mL urinary output with. Her creatinine slightly worsened. Liver enzymes are improving. Hemoglobin is down to 7.6 and heparin was discontinued this morning. WBC is slightly down to 33.6. Patient this morning is coagulopathic with increased PTT and PT and likely related to sepsis and acute shock liver. She opened her eyes to voice. Denied any pain. Denied having any discomfort and followed commands and answer questions with nodding. She is on 8 mcg/min of Levophed which was increased this morning from 6. She requires 50% FiO2 and PEEP 10 to oxygenating mid 90s. Vitals/I&O/Wt Last Vital Signs Temp 97.6 F 04/16/20 04:00 Pulse 82 04/16/20 06:00 Resp 15 04/16/20 06:43 BP 108/54 04/16/20 06:00 Pulse Ox 94 04/16/20 06:00 04/15/20 04/16/20 04/16/20 22:59 06:59 14:59 Intake Total 1876.775 / 3326.775 171.523 / 3498.298 Output Total 425 / 545 1285 / 1830 Balance 1451.775 / 2781.775 -1113.477 / 1668.298 Physical Exam Const: OTHER: Intubated. Opens eyes and follows commands. Not in any distress Resp: COMMON NORMALS: clear to auscultation bilaterally AUSCULTATION: clear to auscultation bilaterally OTHER: Mechanically ventilated. Cardio: COMMON NORMALS: regular rate, regular rhythm and S2 normal heart sound present RATE: regular rate RHYTHM: regular rhythm HEART SOUNDS: S2 normal heart sound present OTHER: No lower extremity edema GI: COMMON NORMALS: Soft to palpation and non-tender PALPATION: Yes Soft to palpation OTHER: Abdominal incision dressed. MICHELLE drain with what appears 60 mL serosanguineous fluid Neuro: COMMON NORMALS: no focal motor deficits OTHER: Appears to be well oriented. Urinary Catheter Management^: Romano: Cath Placed During This Visit: yes Reason for Continuing Indwelling Catheter: Accurate Measurement of Urinary Output in Critically Ill Patients Urinary Catheter Date of Insertion: 04/13/20 Urinary Catheter Time of Insertion: 22:20 Data : 04/16/20 03:33 04/16/20 03:33 Micro: Microbiology 04/14/20 02:28 Urine Culture - Preliminary Urine,Clean Catch 04/14/20 06:41 Blood Culture - Preliminary Blood NEGATIVE TO DATE 04/14/20 06:34 Blood Culture - Preliminary Blood NEGATIVE TO DATE A&P Assessment and plan (1) Bowel perforation: Status: Resolved (2) Acute kidney injury: Prerenal initially and now appears to be renal. Acute tubular necrosis with multiple etiologies including rhabdomyolysis and hypotension Status: Acute (3) Generalized anxiety disorder: Status: Chronic (4) Dehydration with hyponatremia: Status: Acute (5) Severe sepsis with acute organ dysfunction due to Gram negative bacteria: As exhibited by tachycardia and leukocytosis as well as elevated lactic acid. Patient had normal respiration and was afebrile. Status: Acute (6) Septic shock: Status: Acute (7) Hypokalemia: Present admission Status: Acute (8) Liver enzyme elevation: Status: Acute (9) Rhabdomyolysis: Status: Acute (10) Shock liver: Status: Acute (11) Acute anemia: GI bleed cannot be ruled out Status: Acute Additional A&P Information PLAN: Continue Levophed drip and wean off as blood pressure permits. Continue mechanical ventilation until need for aggressive fluids/pressors improves. Obtain DIC panel and peripheral smear. Consider transfusing patient with 1 unit of PRBC. Heparin-induced thrombocytopenia felt unlikely. Patient currently shows no evidence of thrombosis or bleeding on clinical exam. Continue current antibiotics. Awaiting for culture results. Continue albumin. Replete potassium. Attestations Medical Necessity Statement*: Patient is critically ill requiring close ICU monitoring and treatment. Critical Care Time: Critical Care Time (min): 30 Procedures Arterial Line Size (Gauge): 20 Coding Level of Care Code Acute Meat Packer for [facility] Fwd Diagnoses Bowel perforation K63.1 Acute kidney injury N17.9 Generalized anxiety disorder F41.1 Dehydration with hyponatremia E86.0; E87.1 Severe sepsis with acute organ dysfunction due to Gram negative bacteria A41.50; R65.20 Septic shock A41.9; R65.21 Hypokalemia E87.6 Liver enzyme elevation R74.8 Rhabdomyolysis M62.82 Shock liver K72.00 Acute anemia D64.9
[2020-04-16] MEDS: vancomycin 1,000 MG in sodium chloride 0.9% 250 ML 250 MG IV (08:07)
[2020-04-16 08:40] LABS: LAB Peripheral Smear Sent for Review
[2020-04-16 09:14] LABS: INR 1.88 (0.8-1.2)
[2020-04-16 09:15] LABS: Fibrinogen 450 mg/dL (174-498)
[2020-04-16 09:25] LABS: D Dimer 11.92 ug/mIFEU (0-0.59)
[2020-04-16] MEDS: budesonide 0.5 mg/2 mL Neb INHALATION ×2 (09:55→20:17)
[2020-04-16] MEDS: potassium chloride premix 40 MEQ/100 ML PREMIX 25 MEQ IV (09:58)
[2020-04-16] MEDS: pantoprazole 40 mg SDV IVP (09:59)
[2020-04-16] MEDS: D5-NS 0.45% + KCL 20 mEq 20 MEQ/1,000 ML BAG 75 MEQ IV (10:11)
--- NOTE | 2020-04-16 10:31 | PM.PN ---
Subjective Subjective: Interval history: Remains on levophed 8 mcg/min, FIO2 50% Medications: Reviewed: Yes Vitals/I&O/Wt Last Vital Signs Temp 97.6 F 04/16/20 04:00 Pulse 81 04/16/20 10:00 Resp 15 04/16/20 09:58 BP 108/54 04/16/20 06:00 Pulse Ox 97 04/16/20 09:58 04/15/20 04/16/20 04/16/20 22:59 06:59 14:59 Intake Total 1876.775 / 3326.775 271.523 / 3598.298 1151.698 / 1151.698 Output Total 425 / 545 1285 / 1830 Balance 1451.775 / 2781.775 -1013.477 / 6936.396 0390.698 / 1151.698 Physical Exam Const: COMMON NORMALS: no acute distress GENERAL APPEARANCE: lethargic ORIENTATION/CONSCIOUSNESS: Yes lethargic Resp: AUSCULTATION: bronchial breath sounds Cardio: COMMON NORMALS: regular rhythm RHYTHM: regular rhythm GI: OTHER: abdomen very distended Extremity: GENERAL: Yes edema Neuro: SENSORIUM/ORIENTATION: Yes lethargic Urinary Catheter Management^: Romano: Cath Placed During This Visit: yes Reason for Continuing Indwelling Catheter: Accurate Measurement of Urinary Output in Critically Ill Patients Urinary Catheter Date of Insertion: 04/13/20 Urinary Catheter Time of Insertion: 22:20 Data : 04/16/20 03:33 04/16/20 03:33 Other Labs: CK 19,294, transaminases improving Micro: Microbiology 04/14/20 02:28 Urine Culture - Final Urine,Clean Catch 04/14/20 06:41 Blood Culture - Preliminary Blood NEGATIVE TO DATE 04/14/20 06:34 Blood Culture - Preliminary Blood NEGATIVE TO DATE A&P Additional A&P Information Impression: 1. Acute oliguric kidney injury, ischemic ATN, sepsis, Rhabdomyolysis, DIC. Minimal urine output. Source of high CK is not evident 2. Electrolyte imbalance: hypokalemia, hypocalcemia, mild hyponatremia 3. Shock liver with CT findings consistent with cirrhosis Recommend: No indication to begin hemodialysis at this time. continue IVF hydration, pressors to maintain blood pressure. Attestations Medical Necessity Statement*: critically ill Time Spent in Patient Care: 16 - 35 minutes Procedures Arterial Line Size (Gauge): 20 Coding Level of Care Code Acute Mechanics Handyman for Chg Fwd Exam Expanded Problem Focused
[2020-04-16] MEDS: norepinephrine 8 MG in dextrose 5 % 500 ML 30.5 MG IV (11:36)
[2020-04-16] MEDS: sodium chlor 0.9% + KCl 20 mEq 20 MEQ/1,000 ML BAG 125 MEQ IV (18:16)
--- NOTE | 2020-04-16 19:25 | PC.NURSE ---
Shift summary: Pt has rested with eyes closed most of the day. She is able to make her needs know and can follow commands. Levophed decreased to 6mgg/min. Iv fluids changed to NS with 20 mEq KCL. Lungs had some wheezes this am, clear this eveings. Ck level almost doubles now [id number]. Dr Reyes and Dr Harper informed. Dr Aguilera, telenephrology made rounds after values logged. No plas for dialysis at this time. Right drain output higher than left. Right drain output tea colored this am, cleared up to orange tinged serousangiuness. Urine output 245ml of dark yellow with brown sediment urine.
[2020-04-17] VITALS (61 sets, daily range): BP systolic 84–118; BP diastolic 40–68; PULSE 80–89; RESP 12–20; TEMP 36.3–36.6; O2SAT 90–96
[2020-04-17] MEDS: sodium chlor 0.9% + KCl 20 mEq 20 MEQ/1,000 ML BAG 125 MEQ IV ×4 (01:04→23:48)
[2020-04-17] MEDS: metroNIDAZOLE IV 500 MG/100 ML PREMIX 100 MG IV ×3 (03:07→18:32)
[2020-04-17 04:05] LABS: Hematocrit 24.6 % (37.0-47.0); Hemoglobin 7.6 g/dL (11.5-15.3); Mean Corpuscular HGB Conc 30.9 g/dL (30.0-36.0); Mean Corpuscular Hemoglobin 29.5 pg (28.0-34.0); Mean Corpuscular Volume 95.3 fL (81-99); Mean Platelet Volume 8.9 fL (7.4-10.4); Platelet Count 197 10^3/cmm (130-400); Red Blood Count 2.58 10^6/uL (4.1-5.3); Red Cell Distribution Width 15.2 % (12.1-15.1)
[2020-04-17] MEDS: ipratropium-albuterol 3 mL Neb INHALATION ×4 (04:16→21:24)
[2020-04-17 04:35] LABS: Alanine Aminotransferase 687 U/L (0-33); Albumin Level 3.6 g/dL (3.5-5.2); Alkaline Phosphatase 150 IU/L (35-105); Anion Gap 19.1 (5-19); Calcium 6.5 mg/dL (8.5-10.5); Carbon Dioxide 25 mmol/L (22-29); Chloride 95 mmol/L (98-107); Globulin 2.2 g/dL (1.3-4.6); Glomerular Filtration Rate 12.8 mL/min (90-130); Glucose 77 mg/dL (65-115); Magnesium 1.9 mg/dL (1.7-2.3); Osmolality Calculated 280 mOsm/kg (285-295); Potassium 4.1 mmol/L (3.5-5.1); Sodium 135 mmol/L (136-145); Total Bilirubin 1.2 mg/dL (0.15-1.2); Total Protein 5.8 g/dL (6.6-8.7)
[2020-04-17 04:58] LABS: ABG PCO2 48.6 mmHg (35-45); ABG PH Result 7.33 (7.35-7.45); Arterial Blood Gas Hematocrit 29.9 % (37-47); Base Excess ABG -0.7 mmol/L (-2.0-2.0); Blood Gas Sample Site Brachial, right; Blood Gas Sample Type Arterial; Carboxyhemoglobin 0.7 %THgb (0.4-20.1); HCO3 ABG 25.5 mmol/L (22-26); HGB O2 Sat 91.5 % (95-100); Ionized Calcium Level - ABG 0.9 mmol/L (1.1-1.4); Methemoglobin 0.7 % (0.4-1.5); Oxygen Device VENT; Oxygen Saturation ABG 92.9; Potassium Level - ABG 3.9 mmol/L (3.5-5.0); Total Hemoglobin 9.8 g/dL (12-16)
[2020-04-17 05:14] LABS: Aspartate Amino Transferase 1160 U/L (0-32)
[2020-04-17 05:15] LABS: Blood Urea Nitrogen 102 mg/dL (6-20)
[2020-04-17 05:16] LABS: Creatine Phosphokinase 10021 U/L (26-192)
--- NOTE | 2020-04-17 06:23 | PM.PN ---
Subjective Subjective: Interval history: Overall patient seems to be making progress and improvement of kidney function yet she still required pressors likely due to fentanyl sedation as well. Making better urine output Not pass gas yet Vitals/I&O/Wt Last Vital Signs Temp 97.5 F L 04/17/20 05:00 Pulse 86 04/17/20 05:30 Resp 14 04/17/20 05:35 BP 107/49 04/17/20 05:30 Pulse Ox 95 04/17/20 05:30 04/16/20 04/16/20 04/17/20 14:59 22:59 06:59 Intake Total 2191.169 / 2191.169 295.625 / 2486.794 951.875 / 3438.669 Output Total 120 / 120 560 / 680 530 / 1210 Balance 2071.169 / 2071.169 -264.375 / 1806.794 421.875 / 2228.669 Physical Exam Narrative: EXAM NARRATIVE: Patient is conscious alert moderately sedated BMI 33 Head and neck examination PERRLA no masses no cervical lymphadenopathy no jaundice NG in place minimal output Cardiac examination audible S1-S2 no murmurs no gallops no arrhythmias Chest fair air entry bilateral with scattered rhonchi bilateral Left subclavian vein central line in place Abdomen nontender nondistended soft no organomegaly guarding or rigidity/no signs of peritonitis. Wound bed looks clean Dressing in place with minimal soaking of the dressing Drains right one showing serosanguineous and left one shows serosanguinous output Romano catheter in place with cleaer urine Extremities no cyanosis no clubbing no edema Urinary Catheter Management^: Romano: Cath Placed During This Visit: yes Reason for Continuing Indwelling Catheter: Accurate Measurement of Urinary Output in Critically Ill Patients Urinary Catheter Date of Insertion: 04/13/20 Urinary Catheter Time of Insertion: 22:20 Data : 04/17/20 03:38 04/17/20 03:38 Micro: Microbiology 04/14/20 06:34 Blood Culture - Preliminary Blood Gram positive cocci 04/14/20 02:28 Urine Culture - Final Urine,Clean Catch A&P Assessment and plan (1) Sepsis: Continue sepsis protocol Wean off pressors and wean off sedation Will monitor central venous pressure patient's last CVP was 12 We will plan to wean to extubate with coordination with Dr. Harper If patient continues to show higher trend in leukocytosis we will plan to scan the abdomen and pelvis with oral contrast only to rule out potential underlying abscesses or fluid collections that may require interventional radiology and percutaneous drainage. Status: Acute (2) Bowel perforation: Plan: PLAN OF CARE: CVS: Continue continuous cardiac monitoring and pressors Continue hold onto pharmacologic DVT prophylaxis due to drifting H&H Wean off pressors PULMONARY: We will plan to wean to extubate with coordination with hospitalist service once she meets criteria Nebs therapy as as needed Dr. Harper would like to hold off extubation for now till patient is off pressors GI: Continue NG tube to low intermittent wall suction PPI for prophylaxis since patient mechanical ventilator NUTRITION: We will start trophic feeds and check residuals form of Nepro RENAL: Continue monitoring kidney functions Strict I's and O's Continue electrolyte protocols for replacement including calcium potassium and magnesium Will coordinate care with Dr. Lott and Dr. Harper with regard for potential hemodialysis INFECTIOUS DISEASE: Per hospitalist service NEUROLOGY: On mechanical ventilation and sedation that when sedation is off patient is fully awake and alert and moving all extremities MOBILITY: Continue physical therapy SKIN AND WOUND: Daily wet-to-dry dressing change and packing of the abdominal wound Pain control; IV pain medication Will continue Family Updates Status: Resolved Attestations Medical Necessity Statement*: Medical necessity care is expected to cross 2 midnights in the intensive care unit Time Spent in Patient Care: (>than 50% of time spent in counselling and/or direct pt care on unit). 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
--- NOTE | 2020-04-17 07:11 | XR_ITS ---
WS: [id number] EXAM: AP CHEST: PORTABLE UPRIGHT DATE OF EXAM: 04/17/2020, 0944 hours COMPARISON: Chest x-ray from 2 days prior. HISTORY: Patient is 54 years old with respiratory failure. Follow-up pulmonary infiltrates. FINDINGS: The cardiac silhouette is stable. The mediastinal contours show an endotracheal tube, left subclav maliha central venous catheter and enteric tube remain in stable position as visualized. Appear to be un changed.. The pulmonary vascularity is congested. There is progressive developing infiltrate withi n the left mid and lower chest. Definitely advanced in the last 2 days. Some minimal wispy infiltrate right lung base. There is no effusion or pneumothorax. No acute bony abnormality is seen. XR/XR chest 1V portable [id number] IMPRESSION: Supporting devices appear to be in satisfactory position. Worsening infiltrate in the left lung. Most prominent left retrocardiac lung base position. Minimal patchy infiltrate right lung base.
[2020-04-17] MEDS: cefepime 1,000 MG in sodium chloride 0.9% (plus) 50 ML 100 MG IV (07:48)
--- NOTE | 2020-04-17 08:31 | PM.PN ---
Subjective Subjective: Interval history: Patient denies any pain this morning. She had good urinary output and her creatinine as well as creatinine kinase is coming down. She had no OG tube output. She is passing gas but had no bowel movement yet. She continues to require Levophed drip which was increased to 8 mcg/min from 6 earlier today. Her FiO2 was decreased to 35% and she is doing well on pressure support. White blood cell count increased. I had discussion with patient's daughter at the bedside yesterday and updated her. Medications: Reviewed: Yes Vitals/I&O/Wt Last Vital Signs Temp 97.5 F L 04/17/20 05:00 Pulse 85 04/17/20 06:00 Resp 15 04/17/20 07:55 BP 106/50 04/17/20 06:00 Pulse Ox 94 04/17/20 06:00 04/16/20 04/17/20 04/17/20 22:59 06:59 14:59 Intake Total 295.625 / 2486.794 956.458 / 3443.252 Output Total 560 / 680 530 / 1210 Balance -264.375 / 1806.794 426.458 / 2233.252 Physical Exam Const: OTHER: Intubated. Opens eyes and follows commands. Not in any distress Resp: OTHER: Coarse breath sounds throughout. Mechanically ventilated. Cardio: COMMON NORMALS: regular rate, regular rhythm and S2 normal heart sound present RATE: regular rate RHYTHM: regular rhythm HEART SOUNDS: S2 normal heart sound present OTHER: No lower extremity edema GI: COMMON NORMALS: Soft to palpation and non-tender PALPATION: Yes Soft to palpation OTHER: Abdominal incision dressed. Very hypoactive bowel sounds. Neuro: COMMON NORMALS: no focal motor deficits OTHER: Appears to be well oriented. Urinary Catheter Management^: Romano: Cath Placed During This Visit: yes Reason for Continuing Indwelling Catheter: Accurate Measurement of Urinary Output in Critically Ill Patients Urinary Catheter Date of Insertion: 04/13/20 Urinary Catheter Time of Insertion: :20 Data : 04/17/20 03:38 04/17/20 03:38 Micro: Microbiology 04/14/20 06:34 Blood Culture - Preliminary Blood Gram positive cocci 04/14/20 02:28 Urine Culture - Final Urine,Clean Catch A&P Assessment and plan (1) Bowel perforation: Status: Resolved (2) Acute kidney injury: Prerenal initially and now appears to be renal. Acute tubular necrosis with multiple etiologies including rhabdomyolysis and hypotension Status: Acute (3) Generalized anxiety disorder: Status: Chronic (4) Dehydration with hyponatremia: Status: Acute (5) Severe sepsis with acute organ dysfunction due to Gram negative bacteria: As exhibited by tachycardia and leukocytosis as well as elevated lactic acid. Patient had normal respiration and was afebrile. Status: Acute (6) Septic shock: Status: Acute (7) Hypokalemia: Present admission Status: Acute (8) Liver enzyme elevation: Status: Acute (9) Rhabdomyolysis: Status: Acute (10) Shock liver: Status: Acute (11) Acute anemia: GI bleed cannot be ruled out Status: Acute Additional A&P Information PLAN: Continue Levophed drip and IV fluids. I am concerned to extubate at this point given patient's underlying lung disease and need for IV hydration. Discussed with ALIRIO Morataya and we will gradually wean off fentanyl although I doubt it contributes to patient's low blood pressure. Increasing white blood cell count is concerning and we may need to rescan patient's abdomen if it does not improve. Discussed with Dr. Reyes and we will start patient on tube feeds 5 to 10 mL/h. Will recheck PT/INR and fibrinogen in a.m. Continue monitoring CBC and CMP. Once blood pressure improves consider extubating. We will continue albumin to avoid third spacing. Blood culture 1 out of 4 growing gram-positive cocci which appears to be a contamination. Attestations Medical Necessity Statement*: Patient is critically ill requires close ICU monitoring and treatment Critical Care Time: Critical Care Time (min): 40 Procedures Arterial Line Size (Gauge): 20 Coding Level of Care Code Acute Paper Sales Representative for Chg Fwd Diagnoses Bowel perforation K63.1 Acute kidney injury N17.9 Generalized anxiety disorder F41.1 Dehydration with hyponatremia E86.0; E87.1 Severe sepsis with acute organ dysfunction due to Gram negative bacteria A41.50; R65.20 Septic shock A41.9; R65.21 Hypokalemia E87.6 Liver enzyme elevation R74.8 Rhabdomyolysis M62.82 Shock liver K72.00 Acute anemia D64.9
[2020-04-17] MEDS: levofloxacin-dextrose 5 % 500 MG/100 ML PREMIX 100 MG IV (08:42)
[2020-04-17] MEDS: pantoprazole 40 mg SDV IVP (08:43)
[2020-04-17] MEDS: budesonide 0.5 mg/2 mL Neb INHALATION ×2 (09:21→21:24)
--- NOTE | 2020-04-17 09:37 | DCPLANNER ---
Discussed IM with Sister; Jade with whom pt lives. No questions, copy left at bedside as agreed.
--- NOTE | 2020-04-17 13:26 | PC.CHAP ---
Pastoral Care Encounter/Spiritual Assessment Type of Contact [] Declined gas welder apprentice visit [] Patient/Family/Request visit [] Outpatient visit [] Follow-up visit [] Physician referral [] Code/Alert [X] Routine visit [X] Staff referral [] Actively dying [] Patient sleeping [] Family support [] [] Out of room [] Palliative care [] [] Receiving care in room [] Pre-surgical visit [] Trauma [] Long length of stay [] ICU visit [] Other: Relational/Emotional Strength [] Patient feels connected with others/family/visitors/staff [] Distress [] Loneliness/isolation [] Abandonment Spirituality of Patient [] Person of Bea [] Attends Spiritism of their Bea [] Believes in Prayer [] Reads Bible or Baptism materials [] There are Spiritual issues to be addressed Neurology Stroke Physician Interventions [] Prayer [] Active listening [] Non-anxious presence [] Spiritual/emotional support [] Crisis/trauma care [] Spiritual counseling [] Bereavement support [] Provided bereavement packet [] Provided Bible/devotional materials [] Provided toy/stuffed animal, coloring book to patient or family member [] Provided Communion [] Anointing/[place] [] Salvation [] Completed spiritual assessment [] Other: Impact on Illness or Injury [] Angry [] Fearful [] Anxious [] Often cries [] Exhaustion [] Unable to work [] Unable to attend jew [] Unable to walk/stand [] Unable to read [] Unable to drive [] Unable to eat/drink [] Unable to sleep [] Unable to be with family [] Patient intubated [] Other: Summary: Pt is on ventilator, but the nurse suggested that I visit with her as she is alert and can answer yes/no questions. I introduced myself, and it scared her when I said that I was a gas welder apprentice. I quickly explained that this was a routine visit. I asked if she would like prayer, and she declined. Time spent with patient
--- NOTE | 2020-04-17 17:02 | P.PN_ITS ---
Subjective Subjective: Interval history: I am seeing her in follow up for her renal failure. No new issues overnight. Still intubated, on pressors, getting ivf Medications: Reviewed: Yes Vitals/I&O/Wt Last Vital Signs Temp 97.3 F L 04/17/20 12:30 Pulse 83 04/17/20 14:58 Resp 14 04/17/20 14:56 BP 108/54 04/17/20 12:30 Pulse Ox 94 04/17/20 14:55 04/17/20 04/17/20 04/17/20 06:59 14:59 22:59 Intake Total 1156.458 / 4643.252 1150 / 1150 1182.413 / 2332.413 Output Total 530 / 1210 555 / 555 Balance 626.458 / 3433.252 595 / 595 1182.413 / 1777.413 Physical Exam Const: COMMON NORMALS: no acute distress ORIENTATION/CONSCIOUSNESS: Yes awake OTHER: Intubated Resp: AUSCULTATION: crackles Cardio: COMMON NORMALS: S1 normal heart sound present and S2 normal heart sound present HEART SOUNDS: S1 normal heart sound present and S2 normal heart sound present GI: AUSCULTATION: Yes normoactive bowel sounds Extremity: GENERAL: Yes edema Skin: COMMON NORMALS: no rashes or lesions noted GENERAL SKIN EXAM: no rashes or lesions noted Urinary Catheter Management^: Romano: Cath Placed During This Visit: yes Reason for Continuing Indwelling Catheter: Accurate Measurement of Urinary Output in Critically Ill Patients Urinary Catheter Date of Insertion: 04/13/20 Urinary Catheter Time of Insertion: 22:20 Data : 04/17/20 03:38 04/17/20 03:38 Micro: Microbiology 04/14/20 06:34 Blood Culture - Preliminary Blood Gram positive cocci A&P Assessment and plan (1) Acute kidney injury: No indication for any dialysis as kidney function improving. Pt has good urine output. Continue IVF, avoid new nephrotoxins & wide fluctuation in BP Status: Acute (2) Rhabdomyolysis: Improving, CK is down, continue ivf Status: Acute (3) Septic shock: Defer to primary team Status: Acute (4) Hypotension: On pressors & IVF Status: Acute (5) Hyponatremia: Improving Status: Acute Attestations Medical Necessity Statement*: ARF Procedures Arterial Line Size (Gauge): 20 Coding Level of Care Code Acute Radiographer Angiogram for Chg Fwd Diagnoses Acute kidney injury N17.9 Rhabdomyolysis M62.82 Septic shock A41.9; R65.21 Hypotension I95.9 Hyponatremia E87.1
--- NOTE | 2020-04-17 19:46 | PC.NURSE ---
Shift summary: Pt watched TV most of the day. Responds appropriately. Pt remains intubated, vent on MMV at 40%. No changes in medications today except for Levophed decreased again to 6 mcg/min. CVP around 9 most of the day. RIght MICHELLE drain has greater drainage than left, both serosangiouness. Urine ouput has increased today, 850 ml output.Tube feeding, Nephro , started at 5ml/hr this evening. Pt does have rare bowel sounds in all 4 quadrants now.
[2020-04-18] VITALS (47 sets, daily range): BP systolic 98–152; BP diastolic 48–85; PULSE 81–93; RESP 10–27; TEMP 35.6–36.6; O2SAT 90–100
[2020-04-18] MEDS: ipratropium-albuterol 3 mL Neb INHALATION ×4 (02:28→20:10)
[2020-04-18] MEDS: metroNIDAZOLE IV 500 MG/100 ML PREMIX 100 MG IV ×3 (03:17→19:42)
[2020-04-18 03:50] LABS: INR 1.82 (0.8-1.2)
[2020-04-18 04:08] LABS: Fibrinogen 455 mg/dL (174-498)
[2020-04-18 05:02] LABS: ABG PCO2 47.3 mmHg (35-45); ABG PH Result 7.31 (7.35-7.45); Arterial Blood Gas Hematocrit 26.9 % (37-47); Base Excess ABG -2.4 mmol/L (-2.0-2.0); Blood Gas Allen Test Pos; Blood Gas Sample Type Arterial; HCO3 ABG 23.9 mmol/L (22-26); PO2 ABG 62.4 mmHg (80.0-100.0)
[2020-04-18 05:04] LABS: Blood Gas Sample Site Radial, right; Oxygen Device VENT
[2020-04-18] MEDS: norepinephrine 8 MG in dextrose 5 % 500 ML 7.6 MG IV (05:40)
[2020-04-18 06:10] LABS: Alanine Aminotransferase 408 U/L (0-33); Albumin Level 3.4 g/dL (3.5-5.2); Alkaline Phosphatase 158 IU/L (35-105); Anion Gap 16.4 (5-19); Aspartate Amino Transferase 559 U/L (0-32); Calcium 7.8 mg/dL (8.5-10.5); Carbon Dioxide 24 mmol/L (22-29); Chloride 102 mmol/L (98-107); Globulin 2.1 g/dL (1.3-4.6); Glomerular Filtration Rate 18.4 mL/min (90-130); Glucose 75 mg/dL (65-115); Osmolality Calculated 285 mOsm/kg (285-295); Potassium 4.4 mmol/L (3.5-5.1); Sodium 138 mmol/L (136-145); Total Protein 5.5 g/dL (6.6-8.7)
[2020-04-18 06:24] LABS: Blood Urea Nitrogen 84 mg/dL (6-20)
[2020-04-18 06:30] LABS: Basophils # 0.2 10^3/uL (0.0-0.1); Basophils % 0.5 %; Eosinophils % 0.1 %; Hematocrit 22.7 % (37.0-47.0); Hemoglobin 6.8 g/dL (11.5-15.3); Lymphocytes # 2.2 10^3/uL (0.8-4.8); Lymphocytes % 6.2 %; Mean Corpuscular Hemoglobin 28.6 pg (28.0-34.0); Mean Corpuscular Volume 95.4 fL (81-99); Mean Platelet Volume 9.1 fL (7.4-10.4); Monocytes # 1.3 10^3/uL (0.2-0.9); Monocytes % 3.6 %; Neutrophils # 26.81 10^3/uL (1.8-7.7); Nucleated Red Blood Cells % 0.1 %; Platelet Count 171 10^3/cmm (130-400); Red Blood Count 2.38 10^6/uL (4.1-5.3); Red Cell Distribution Width 15.7 % (12.1-15.1)
[2020-04-18] MEDS: cefepime 1,000 MG in sodium chloride 0.9% (plus) 50 ML 100 MG IV (06:30)
[2020-04-18 06:34] LABS: Neutrophils % 89.6 %
[2020-04-18 06:35] LABS: White Blood Count 36.4 10^3/uL (4.0-10.0)
--- NOTE | 2020-04-18 06:57 | P.PN_ITS ---
Subjective Subjective: Interval history: Patient met criteria for extubation and I did order to extubate her earlier today and she has been off pressors for the past 2 hours, improvement of kidney function yet continued to have persistent leukocytosis Making better urine output Patient passed some gas yesterday and trophic tube feeds were started slowly yesterday Vitals/I&O/Wt Last Vital Signs Temp 97.2 F L 04/18/20 03:00 Pulse 84 04/18/20 06:27 Resp 10 L 04/18/20 06:27 BP 109/56 04/18/20 03:00 Pulse Ox 97 04/18/20 05:00 04/17/20 04/17/20 04/18/20 14:59 22:59 06:59 Intake Total 1350 / 1350 1475.796 / 2825.796 3319.465 / 6145.261 Output Total 555 / 555 555 / 1110 880 / 1990 Balance 795 / 795 920.796 / 7899.751 8675.465 / 4155.261 Physical Exam Narrative: EXAM NARRATIVE: EXAM NARRATIVE: Patient is conscious alert moderately sedated BMI 33 Head and neck examination PERRLA no masses no cervical lymphadenopathy no jaundice NG in place clear output Cardiac examination audible S1-S2 no murmurs no gallops no arrhythmias Chest fair air entry bilateral with scattered rhonchi bilateral Left subclavian vein central line in place Abdomen nontender nondistended soft no organomegaly guarding or rigidity/no signs of peritonitis. Wound bed looks clean yet there was a pocket of pus at the lower part of the incision that I did drain with my examining finger and the wound was repacked by me bedside otherwise the overall wound bed looks appropriate. Right and left lower abdominal drains show serous output Romano catheter in place with clearer urine Extremities no cyanosis no clubbing no edema Urinary Catheter Management^: Romano: Cath Placed During This Visit: yes Reason for Continuing Indwelling Catheter: Accurate Measurement of Urinary Output in Critically Ill Patients Urinary Catheter Date of Insertion: 04/13/20 Urinary Catheter Time of Insertion: 22:20 Data : 04/18/20 05:43 04/18/20 05:43 Micro: Microbiology 04/14/20 06:34 Blood Culture - Preliminary Blood Gram positive cocci A&P Assessment and plan (1) Sepsis: We will plan to scan the abdomen and pelvis today with oral contrast no IV, I am concerned about potential interloop and fluid collections and abscesses that may explain the trending up leukocytosis.Also concerning about potential intrahepatic abscess formation. Status: Acute (2) Bowel perforation: Plan: PLAN OF CARE: CVS: Continue continuous cardiac monitoring Continue SCDs PULMONARY: Aggressive pulmonary toilet Incentive spirometer GI: Continue NG tube to low intermittent wall suction PPI for prophylaxis since patient mechanical ventilator NUTRITION: We will start trophic feeds and check residuals form of Nepro RENAL: Continue monitoring kidney functions Strict I's and O's Continue electrolyte protocols for replacement including calcium potassium and magnesium INFECTIOUS DISEASE: Per hospitalist service NEUROLOGY: GCS 15 out of 15 MOBILITY: Continue physical therapy/out of bed to the chair SKIN AND WOUND: Daily wet-to-dry dressing change and packing of the abdominal wound Pain control; IV pain medication Will continue Family Updates Status: Resolved Attestations Medical Necessity Statement*: Medical necessity care is expected to cross 2 midnights and continue ICU admission Time Spent in Patient Care: (>than 50% of time spent in counselling and/or direct pt care on unit) . Procedures Arterial Line Size (Gauge): 20 Coding Level of Care Code Acute Stitch Bonding Machine Tender Helper for Chg Fwd Diagnoses Sepsis A41.9 Bowel perforation K63.1
--- NOTE | 2020-04-18 07:14 | CT_ITS ---
WS: [id number] EXAM: CT OF THE ABDOMEN AND PELVIS WITHOUT CONTRAST DATE OF EXAMINATION: 04/18/2020, 1039 hours COMPARISON: CT of the abdomen and pelvis from 04/13/2020 HISTORY: 54 years old with history of perforated bowel. Assess for abscess. TECHNIQUE: Transaxial computed tomography images obtained through the abdomen and pelvis without utilization of contrast viewed in multiple windows with reconstructions. DLP: 1738.[address] scans at [facility] use at least one of these dose optimization techniques: automat ed exposure control; mA and/or kV adjustment per patient size (includes targeted exams where dose is matched to clinical indication); or iterative reconstruction. FINDINGS: Since the prior examination there has been interval development of bibasilar infiltrates most promine nt in both lower lobes and minimally within the middle lobe and lingula. Small amount of pleural flui d is seen. Whether this represents atelectasis versus pneumonia is uncertain. The heart size is sligh tly enlarged. The aorta is normal in caliber. Without IV contrast evaluation of the lumen is consider ed inadequate. Liver attenuation is normal. Clips in the gallbladder fossa correlate with cholecystec romeo. No biliary dilatation is noted. The spleen is normal in appearance. The pancreas is normal appearance. Adrenal glands are normal appearance. Both kidneys show abnormal blotchy areas of enhancement with residual contrast in both kidneys. Most likely is related to contrast induced nephropathy secondary to the recent administration of contrast with possible renal failure. Please correlate for renal output. Nephrology consultation recommended. No obstructive uropathy is seen. No definite renal or ureteral calculus. Enteric tube crosses the distal thoracic esophagus and ends in the stomach. Stomach is otherwise unre markable. Small bowel is not extensively dilated. Oral contrast is seen extending into the proximal s mall bowel. In the opacified portions is fairly unremarkable. There are findings of small bowel wall thickening in the area of the distal ileum. Fairly nonspecific. Colon is decompressed distally. Air filled colon from the splenic flexure to the cecum demonstrated. Most likely represent some degree of ileus. Surgical drains are seen in the right paracolic gutter ex tending up along the right margin of the liver. Additional drain is seen in the deep pelvis. Small am ount of fluid in the deep pelvis is seen. No large fluid collection to suggest an area of drainable a bscess is identified. Postsurgical changes of open anterior abdominal wound are seen. There is extensive edema throughout t he omentum as well as in the root of the mesentery felt to be fairly nonspecific. Most likely third s pacing of fluid. There is generalized anasarca type of pattern to the patient. Please correlate for p ossible sepsis. There is a small amount of fluid in the right upper quadrant as well as between the liver and the jake phragm. Whether or not this is infected fluid is uncertain. Was also present on the prior examination actually appears slightly less in volume. No enlarged lymph nodes are identified. Bladder is decompressed by a Romano. No groin hernia or umbilical hernia is identified. Uterus is absent. No adnexal mass. Scattered degenerative changes are seen in the spine. Packing is seen within the open anterior abdomi nal wound. CT/CT abdomen pelvis wo con [id number] IMPRESSION: Interval laparotomy with packed open anterior abdominal incision. Air-filled nondilated colon from the cecum through the splenic flexure presumab ly related to slight ileus. Enteric tube ends in the stomach. Slight thickening of the distal small bowel wall fairly nonspecific. No pneumoperitoneum. Small amount of free fluid in the deep pelvis as well as some fluid overlying t he dome of the liver interposed between the liver and the diaphragm. Generalized third spacing of fluid. Please correlate for possible sepsis. Patchy residual contrast retention in both kidneys without the administration o f new iodinated contrast. Highly suspect this patient has underlying contrast-i nduced nephropathy with possible subsequent renal failure. Building Supervisor consult ation recommended. No demarcated fluid collection is a suggest a site of drainable abscess identif ied. Interval development of bibasilar infiltrates. Question atelectasis versus pneu monia.
[2020-04-18 08:28] LABS: Vancomycin Trough 10.4 ug/mL (10-15)
[2020-04-18] MEDS: budesonide 0.5 mg/2 mL Neb INHALATION ×2 (08:35→20:10)
--- NOTE | 2020-04-18 08:40 | PM.PN ---
Subjective Subjective: Interval history: Patient was extubated this morning. Denies shortness of breath or chest pain. Passing gas but had no bowel movement yet. She had 1500 urinary output and her creatinine is down to 2.7. Her white blood cell count continues to increase. Hemoglobin is down to 6.8. Platelets further down to 171. Fibrinogen is stable. Medications: Reviewed: Yes Vitals/I&O/Wt Last Vital Signs Temp 97.2 F L 04/18/20 03:00 Pulse 85 04/18/20 08:35 Resp 16 04/18/20 08:35 BP 109/56 04/18/20 03:00 Pulse Ox 93 04/18/20 08:35 04/17/20 04/18/20 04/18/20 22:59 06:59 14:59 Intake Total 1475.796 / 2825.796 3319.465 / 6145.261 Output Total 555 / 1110 880 / 1990 Balance 920.796 / 4623.700 5610.465 / 4155.261 Physical Exam Const: OTHER: Not in any distress. Resp: COMMON NORMALS: clear to auscultation bilaterally AUSCULTATION: clear to auscultation bilaterally OTHER: Lungs with very minimal bibasilar Rales. Cardio: COMMON NORMALS: regular rate, regular rhythm and S2 normal heart sound present RATE: regular rate RHYTHM: regular rhythm HEART SOUNDS: S2 normal heart sound present OTHER: No lower extremity edema GI: COMMON NORMALS: Soft to palpation and non-tender PALPATION: Yes Soft to palpation OTHER: Abdominal incision dressed. Good bowel sounds. Neuro: COMMON NORMALS: no focal motor deficits OTHER: Alert and oriented x3. Urinary Catheter Management^: Romano: Cath Placed During This Visit: yes Reason for Continuing Indwelling Catheter: Accurate Measurement of Urinary Output in Critically Ill Patients Urinary Catheter Date of Insertion: 04/13/20 Urinary Catheter Time of Insertion: 22:20 Data : 04/18/20 05:43 04/18/20 05:43 Micro: Microbiology 04/14/20 06:34 Blood Culture - Preliminary Blood Gram positive cocci A&P Assessment and plan (1) Bowel perforation: Status: Resolved (2) Acute kidney injury: Prerenal initially and now appears to be renal. Acute tubular necrosis with multiple etiologies including rhabdomyolysis and hypotension Status: Acute (3) Generalized anxiety disorder: Status: Chronic (4) Dehydration with hyponatremia: Status: Acute (5) Severe sepsis with acute organ dysfunction due to Gram negative bacteria: As exhibited by tachycardia and leukocytosis as well as elevated lactic acid. Patient had normal respiration and was afebrile. Status: Acute (6) Septic shock: Status: Acute (7) Hypokalemia: Present admission Status: Acute (8) Liver enzyme elevation: Status: Acute (9) Rhabdomyolysis: Status: Acute (10) Shock liver: Status: Acute (11) Acute anemia: GI bleed cannot be ruled out Status: Acute Additional A&P Information PLAN: Continue current antibiotics. Awaiting imaging. Will check HIT antibodies. Patient currently does not show any evidence of thrombosis. Patient's blood culture 1 out of 4 bottles suggestive of contamination. We will give patient 1 unit of PRBC and continue monitoring. Continue IV fluids and will continue albumin for now. Physical therapy. Will let Dr. Villegas to start patient's diet. Attestations Medical Necessity Statement*: Patient with significant leukocytosis post bowel perforation requires close ICU monitoring and treatment. Time Spent in Patient Care: Greater than 35 minutes Procedures Arterial Line Size (Gauge): 20 Coding Level of Care Code Acute Polymerization Engineer for [facility] Fwd Diagnoses Bowel perforation K63.1 Acute kidney injury N17.9 Generalized anxiety disorder F41.1 Dehydration with hyponatremia E86.0; E87.1 Severe sepsis with acute organ dysfunction due to Gram negative bacteria A41.50; R65.20 Septic shock A41.9; R65.21 Hypokalemia E87.6 Liver enzyme elevation R74.8 Rhabdomyolysis M62.82 Shock liver K72.00 Acute anemia D64.9
[2020-04-18] MEDS: morphine 4 mg/mL SDV 1 mL 2 MG IVP ×2 (08:54→14:12)
[2020-04-18] MEDS: pantoprazole 40 mg SDV IVP (08:54)
[2020-04-18] MEDS: sodium chlor 0.9% + KCl 20 mEq 20 MEQ/1,000 ML BAG 125 MEQ IV ×2 (08:56→19:42)
[2020-04-18] MEDS: vancomycin 1,000 MG in sodium chloride 0.9% 250 ML 250 MG IV (09:44)
[2020-04-18] MEDS: iohexol 300 mg/mL 50 mL Btl PO (11:11)
--- NOTE | 2020-04-18 13:18 | PC.NURSE ---
WASTE FENTANYL APPROXIMATELY 95-100 ML WASTED OUT OF BAG,,, WITNESSED BY Gaviota WHARTON RN.
--- NOTE | 2020-04-18 15:46 | P.PN_ITS ---
Subjective Subjective: Interval history: I am seeing her in follow up for her renal failure. Pt was extubated thia am. Feeling better, no chest pain or shortness of breath Medications: Reviewed: Yes Vitals/I&O/Wt Last Vital Signs Temp 97.2 F L 04/18/20 03:00 Pulse 82 04/18/20 14:45 Resp 16 04/18/20 14:30 BP 109/48 04/18/20 13:00 Pulse Ox 94 04/18/20 14:30 04/18/20 04/18/20 04/18/20 06:59 14:59 22:59 Intake Total 3319.465 / 6145.261 1455.438 / 1455.438 Output Total / 1989 Balance 2439.465 / 4155.261 1455.438 / 1455.438 Physical Exam Const: COMMON NORMALS: no acute distress, patient oriented x3 and alert GENERAL APPEARANCE: cooperative ORIENTATION/CONSCIOUSNESS: Yes awake Resp: AUSCULTATION: rhonchi Cardio: COMMON NORMALS: S1 normal heart sound present and S2 normal heart sound present HEART SOUNDS: S1 normal heart sound present and S2 normal heart sound present GI: AUSCULTATION: Yes normoactive bowel sounds Extremity: GENERAL: Yes edema Neuro: COMMON NORMALS: patient oriented x3 SENSORIUM/ORIENTATION: Yes alert Skin: COMMON NORMALS: no rashes or lesions noted GENERAL SKIN EXAM: no rashes or lesions noted Urinary Catheter Management^: Romano: Cath Placed During This Visit: yes Reason for Continuing Indwelling Catheter: Accurate Measurement of Urinary Output in Critically Ill Patients Urinary Catheter Date of Insertion: 04/13/20 Urinary Catheter Time of Insertion: 22:20 Data : 04/18/20 05:43 04/18/20 05:43 Micro: Microbiology 04/14/20 06:34 Blood Culture - Preliminary Blood Gram positive cocci A&P Assessment and plan (1) Acute kidney injury: Kidney function improving, good urine output. No indication for dialysis, continue iv fluids Status: Acute (2) Rhabdomyolysis: Responding to iv fluids Status: Acute (3) Hypotension: BP improving Status: Acute (4) Hyponatremia: Resolving Status: Acute (5) Acute anemia: Follow hb, transfuse as needed Status: Acute Attestations Medical Necessity Statement*: sepsis,IRMA Procedures Arterial Line Size (Gauge): 20 Coding Level of Care Code Acute Peripheral Equipment Operator for g [facility]il[place] Diagnoses Acute kidney injury N17.9 Rhabdomyolysis M62.82 Hypotension I95.9 Hyponatremia E87.1 Acute anemia D64.9
[2020-04-19] VITALS (42 sets, daily range): BP systolic 123–197; BP diastolic 63–106; PULSE 91–115; RESP 18–44; TEMP 36.8–37.2; O2SAT 90–99
[2020-04-19] MEDS: morphine 4 mg/mL SDV 1 mL 2 MG IVP ×9 (00:20→23:20)
[2020-04-19] MEDS: ipratropium-albuterol 3 mL Neb INHALATION ×4 (02:22→20:11)
[2020-04-19] MEDS: metroNIDAZOLE IV 500 MG/100 ML PREMIX 100 MG IV (02:58)
[2020-04-19] MEDS: sodium chlor 0.9% + KCl 20 mEq 20 MEQ/1,000 ML BAG 125 MEQ IV (02:59)
[2020-04-19 04:06] LABS: Hematocrit 29.3 % (37.0-47.0); Hemoglobin 8.6 g/dL (11.5-15.3); Mean Corpuscular HGB Conc 29.4 g/dL (30.0-36.0); Mean Corpuscular Hemoglobin 29.1 pg (28.0-34.0); Platelet Count 169 10^3/cmm (130-400); Red Blood Count 2.96 10^6/uL (4.1-5.3); Red Cell Distribution Width 16.2 % (12.1-15.1)
[2020-04-19 04:37] LABS: Alanine Aminotransferase 297 U/L (0-33); Albumin Level 3.5 g/dL (3.5-5.2); Alkaline Phosphatase 175 IU/L (35-105); Aspartate Amino Transferase 285 U/L (0-32); Blood Urea Nitrogen 69 mg/dL (6-20); Calcium 8.6 mg/dL (8.5-10.5); Carbon Dioxide 17 mmol/L (22-29); Chloride 106 mmol/L (98-107); Globulin 2.6 g/dL (1.3-4.6); Glomerular Filtration Rate 29.4 mL/min (90-130); Glucose 70 mg/dL (65-115); Magnesium 1.8 mg/dL (1.7-2.3); Osmolality Calculated 292 mOsm/kg (285-295); Sodium 142 mmol/L (136-145); Total Bilirubin 1.8 mg/dL (0.15-1.2); Total Protein 6.1 g/dL (6.6-8.7)
[2020-04-19 04:54] LABS: Anion Gap 23.9 (5-19); Potassium 4.9 mmol/L (3.5-5.1)
[2020-04-19 04:55] LABS: Creatine Phosphokinase 1771 U/L (26-192)
[2020-04-19 05:09] LABS: White Blood Count 39.9 10^3/uL (4.0-10.0)
[2020-04-19 05:10] LABS: Slide Review Slide Review Perform; Total Cells Counted 100 (0-100)
[2020-04-19 05:15] LABS: Absolute Segmented Neutrophil 27.1 10/cmm (1.6-7.1); Band Neutrophils Absolute 5.2 10^3/cmm (0.0-1.2); Lymphocytes 10 %; Monocytes Absolute 0.8 10^3/cmm (0.1-0.6); Segmented Neutrophils 68 %
[2020-04-19 05:20] LABS: Absolute Neutrophil 32.3 10^3/cmm (1.4-6.5); Hypochromasia 3+; Platelet Estimate Normal (Normal); Polychromasia 1+; Rouleau 1+; Stomatocytes Trace
--- NOTE | 2020-04-19 05:37 | P.PN_ITS ---
Subjective Subjective: Interval history: Overall patient feels a whole lot better and she continues to have good urine output with trending down and creatinine yet elevation of leukocytosis. CT scan of the abdomen and pelvis was done yesterday showed no intra-abdominal fluid collection or abscess formation yet there was bilateral atelectasis concerning for pneumonitis, likely the cause of leukocytosis. Patient received 1 unit of packed RBCs and she continues to be third spacing Vitals/I&O/Wt Last Vital Signs Temp 98.9 F 04/19/20 04:00 Pulse 96 04/19/20 04:00 Resp 33 H 04/19/20 04:00 BP 139/79 04/19/20 04:00 Pulse Ox 92 04/19/20 04:00 04/18/20 04/18/20 04/19/20 14:59 22:59 06:59 Intake Total 2061.285 / 2061.285 1550 / 3611.285 1310.417 / 4921.702 Output Total 2120 / 2120 975 / 3095 Balance 2061.285 / 2061.285 -570 / 1491.285 335.417 / 1826.702 Physical Exam Narrative: EXAM NARRATIVE: Patient is conscious alert oriented X3 BMI 33 Head and neck examination PERRLA no masses no cervical lymphadenopathy no jaundice Cardiac examination audible S1-S2 no murmurs no gallops no arrhythmias Chest fair air entry bilateral Abdomen nontender except at the incision site nondistended soft no organomegaly guarding or rigidity/no signs of peritonitis. Wound bed is clean no evidence of pockets of purulent discharge and packing was done by me bedside. Romano catheter in place with debris along the tubing Extremities no cyanosis no clubbing no edema Urinary Catheter Management^: Romano: Cath Placed During This Visit: yes Reason for Continuing Indwelling Catheter: Accurate Measurement of Urinary Output in Critically Ill Patients Urinary Catheter Date of Insertion: 04/13/20 Urinary Catheter Time of Insertion: 22:20 Data : 04/19/20 03:24 04/19/20 03:24 A&P Assessment and plan (1) Sepsis: Aggressive pulmonary toilet Will discuss with Dr. Leroy wan [facility] per pulmonary service if this would potentially help the patient identify the source of the elevated WBC count due to the underlying atelectasis and pneumonitis Status: Acute (2) Bowel perforation: Plan: PLAN OF CARE: CVS: Continue continuous cardiac monitoring Continue SCDs PULMONARY: Aggressive pulmonary toilet Incentive spirometer Diuretic therapy per hospitalist service Concerned about the pulmonary status in the presence of persistent leukocytosis and absence of any drainable abscess cavity in the abdomen per CT scan and findings of Interval development of bibasilar infiltrates. Question atelectasis versus pneumonia.will consult Dr. Mcneal pulmon ologist for further evaluation and recommendations. GI: Increase tube feeds to 20 mL/h NUTRITION; increase tube feeds RENAL: Continue monitoring kidney functions Strict I's and O's Continue electrolyte protocols for replacement including calcium p otassium and magnesium We will DC Romano catheter and switch to new one INFECTIOUS DISEASE: Per hospitalist service NEUROLOGY: GCS 15 out of 15 MOBILITY: Continue physical therapy/out of bed to the chair SKIN AND WOUND: Daily wet-to-dry dressing change and packing of the abdominal wound Pain control; IV pain medication Will continue Family Updates and have case management to discuss further rehabilitation with the patient and the family coordinate with physical therapy and hospitalist services. Status: Resolved Attestations Medical Necessity Statement*: Medical necessity care is expected to cross 2 midnights in ICU admission Time Spent in Patient Care: (>than 50% of time spent in counselling and/or direct pt care on unit) . Procedures Arterial Line Size (Gauge): 20 Coding Level of Care Code Acute Computed Tomography Technician for Chg Fwd Diagnoses Sepsis A41.9 Bowel perforation K63.1
[2020-04-19] MEDS: cefepime 1,000 MG in sodium chloride 0.9% (plus) 50 ML 100 MG IV (05:53)
[2020-04-19] MEDS: levofloxacin-dextrose 5 % 500 MG/100 ML PREMIX 100 MG IV (07:30)
--- NOTE | 2020-04-19 08:25 | DCPLANNER ---
Pg 2 of IM updated and reviewed with pt. No questions, copy provided.
[2020-04-19] MEDS: budesonide 0.5 mg/2 mL Neb INHALATION ×2 (08:29→20:11)
[2020-04-19] MEDS: pantoprazole 40 mg SDV IVP (08:47)
--- NOTE | 2020-04-19 08:53 | PC.NURSE ---
New castelan placed. \ 16 Fr. 10 mL in balloon. 25 mL sediment-urine flash and drained on insertion. Pt tolerated well. Pericare completed before insertion.
--- NOTE | 2020-04-19 09:09 | PM.PN ---
Subjective Subjective: Interval history: Patient denies shortness of breath or chest pain this morning. She just had abdominal packing and has binder over. She reports increased abdominal pain. Discussed with Dr. Reyes this morning who just packed her wound shortly prior my evaluation and reports that abdominal exam was not alarming. She is passing gas and has positive bowel sounds on exam. Her white blood cell count slowly trending up but otherwise patient appears to be getting better clinically. Liver enzymes and CK is trending down. Creatinine is 1.8 and patient had good urinary output. Medications: Reviewed: Yes Vitals/I&O/Wt Last Vital Signs Temp 98.3 F 04/19/20 07:41 Pulse 99 04/19/20 08:00 Resp 32 H 04/19/20 08:00 BP 123/94 04/19/20 08:00 Pulse Ox 91 04/19/20 08:00 04/18/20 04/19/20 04/19/20 22:59 06:59 14:59 Intake Total 1550 / 3611.285 1430.417 / 5041.702 100 / 100 Output Total 2120 / 2120 1050 / 3170 300 / 300 Balance -570 / 1491.285 380.417 / 1871.702 -200 / -200 Physical Exam Const: OTHER: Not in any distress. Resp: COMMON NORMALS: clear to auscultation bilaterally AUSCULTATION: clear to auscultation bilaterally OTHER: Lungs with very minimal bibasilar Rales. Cardio: COMMON NORMALS: regular rate, regular rhythm and S2 normal heart sound present RATE: regular rate RHYTHM: regular rhythm HEART SOUNDS: S2 normal heart sound present OTHER: No lower extremity edema GI: COMMON NORMALS: Soft to palpation and non-tender PALPATION: Yes Soft to palpation OTHER: Abdominal incision dressed. Good bowel sounds. Appears slightly distended. Neuro: COMMON NORMALS: no focal motor deficits OTHER: Alert and oriented x3. Urinary Catheter Management^: Romano: Cath Placed During This Visit: yes, but has since been removed by the nurse Reason for Continuing Indwelling Catheter: Decision to DC Catheter Urinary Catheter Date of Insertion: 04/19/20 Urinary Catheter Time of Insertion: 08:51 Date Urinary Catheter Removed: 04/19/20 Time Urinary Catheter Discontinued: 08:28 Data : 04/19/20 03:24 04/19/20 03:24 Micro: Microbiology 04/14/20 06:41 Blood Culture - Final Blood NO GROWTH AFTER 5 DAYS A&P Assessment and plan (1) Bowel perforation: Status: Resolved (2) Acute kidney injury: Prerenal initially and now appears to be renal. Acute tubular necrosis with multiple etiologies including rhabdomyolysis and hypotension Status: Acute (3) Generalized anxiety disorder: Status: Chronic (4) Dehydration with hyponatremia: Status: Acute (5) Severe sepsis with acute organ dysfunction due to Gram negative bacteria: As exhibited by tachycardia and leukocytosis as well as elevated lactic acid. Patient had normal respiration and was afebrile. Status: Acute (6) Septic shock: Status: Acute (7) Hypokalemia: Present admission Status: Acute (8) Liver enzyme elevation: Status: Acute (9) Rhabdomyolysis: Status: Acute (10) Shock liver: Status: Acute (11) Acute anemia: GI bleed cannot be ruled out Status: Acute Additional A&P Information PLAN: Discussed with Dr. Reyes this morning. Will change cefepime and metronidazole to Primaxin and continue monitoring. Continue Levaquin and vancomycin, dosed renally Will request BCR ABL. Patient appears to have leukemoid reaction but chronic myeloid leukemia cannot be completely ruled out. Patient did vomit prior to admission and aspiration pneumonitis and pneumonia cannot be completely ruled out but should be well covered on current antibiotics. Dr. Villegas to make decision for abdominal reexploration if felt necessary. I will decrease IV fluids to 50 mL/h and give 1 dose Lasix. Continue albumin for 1 more day and consider discontinuing tomorrow. Attestations Medical Necessity Statement*: Patient with perforated bowel continues to have elevated white blood cell count was high risk for deterioration requiring close ICU monitoring and treatment. Time Spent in Patient Care: Greater than 35 minutes Procedures Arterial Line Size (Gauge): 20 Coding Level of Care Code Acute Sheet Metal Assembler for g Fwd Diagnoses Bowel perforation K63.1 Acute kidney injury N17.9 Generalized anxiety disorder F41.1 Dehydration with hyponatremia E86.0; E87.1 Severe sepsis with acute organ dysfunction due to Gram negative bacteria A41.50; R65.20 Septic shock A41.9; R65.21 Hypokalemia E87.6 Liver enzyme elevation R74.8 Rhabdomyolysis M62.82 Shock liver K72.00 Acute anemia D64.9
--- NOTE | 2020-04-19 10:34 | PC.CHAP ---
Pastoral Care Encounter/Spiritual Assessment Type of Contact [] Declined medical staff services manager visit [] Patient/Family/Request visit [] Outpatient visit [] Follow-up visit [] Physician referral [] Code/Alert [x] Routine visit [] Staff referral [] Actively dying [] Patient sleeping [] Family support [] [] Out of room [] Palliative care [] [] Receiving care in room [] Pre-surgical visit [] Trauma [] Long length of stay [] ICU visit [] Other: Relational/Emotional Strength [x] Patient feels connected with others/family/visitors/staff [] Distress [] Loneliness/isolation [] Abandonment Spirituality of Patient [x] Person of Bea [] Attends Sabianist of their Bea [x] Believes in Prayer [] Reads Bible or Pentecostalism materials [] There are Spiritual issues to be addressed Associate Director Interventions [x] Prayer [x] Active listening [x] Non-anxious presence [x] Spiritual/emotional support [] Crisis/trauma care [] Spiritual counseling [] Bereavement support [] Provided bereavement packet [] Provided Bible/devotional materials [] Provided toy/stuffed animal, coloring book to patient or family member [] Provided Communion [] Anointing/[place] [] Salvation [] Completed spiritual assessment [] Other: Impact on Illness or Injury [] Angry [] Fearful [] Anxious [] Often cries [] Exhaustion [] Unable to work [] Unable to attend hindu [] Unable to walk/stand [] Unable to read [] Unable to drive [] Unable to eat/drink [] Unable to sleep [] Unable to be with family [] Patient intubated [] Other: Summary Chaplains prayed with Patient. Chaplains Ashwin and Lisa Vazquez. Time spent with patient 8 minutes.
[2020-04-19] MEDS: FUROsemide 10 mg/mL SDV 4mL 40 MG IVP (10:40)
[2020-04-19] MEDS: sodium chlor 0.9% + KCl 20 mEq 20 MEQ/1,000 ML BAG 50 MEQ IV ×2 (10:40→18:14)
--- NOTE | 2020-04-19 11:46 | PC.NURSE ---
PT ASSISTED UP TO BSC, USED WALKER FOR TRANSFER, SMALL LIQUID BOWEL MOVEMENT. REQUIRED X2 ASSIST TO GET OFF OF BSC. WANTS TO GO BACK TO BED, INSTRUCTED TO STAY UP IN CHAIR TO HELP WITH PULMONARY TOILET. RT TO ALSO ENCOURAGE USING INCENTIVE SPIROMETER.
[2020-04-19] MEDS: vancomycin 1,000 MG in sodium chloride 0.9% 250 ML 250 MG IV (11:53)
--- NOTE | 2020-04-19 12:57 | P.PN_ITS ---
Subjective Subjective: Interval history: Significant improvement over weekend. Out of bed to chair, reports abdoment and back pain. Medications: Reviewed: Yes Vitals/I&O/Wt Last Vital Signs Temp 98.3 F 04/19/20 07:41 Pulse 95 04/19/20 12:00 Resp 31 H 04/19/20 12:00 BP 140/95 04/19/20 11:00 Pulse Ox 97 04/19/20 12:00 04/18/20 04/19/20 04/19/20 22:59 06:59 14:59 Intake Total 1550 / 3611.285 1430.417 / 5041.702 1300.417 / 1300.417 Output Total 2120 / 2120 1050 / 3170 740 / 740 Balance -570 / 1491.285 380.417 / 1871.702 560.417 / 560.417 Physical Exam Const: COMMON NORMALS: no acute distress GENERAL APPEARANCE: cooperative Extremity: GENERAL: Yes edema Urinary Catheter Management^: Romano: Cath Placed During This Visit: yes, but has since been removed by the nurse Reason for Continuing Indwelling Catheter: Decision to DC Catheter Urinary Catheter Date of Insertion: 04/19/20 Urinary Catheter Time of Insertion: 08:51 Date Urinary Catheter Removed: 04/19/20 Time Urinary Catheter Discontinued: 08:28 Data : 04/19/20 03:24 04/19/20 03:24 Micro: Microbiology 04/14/20 06:34 Blood Culture - Final Blood Coagulase negativ staphylococc 04/14/20 06:41 Blood Culture - Final Blood NO GROWTH AFTER 5 DAYS Other data: CT ABD w/o contrast 04/18/2020 Interval laparotomy with packed open anterior abdominal incision. Air-filled nondilated colon from the cecum through the splenic flexure presumably related to slight ileus. Enteric tube ends in the stomach. Slight thickening of the distal small bowel wall fairly nonspecific. No pneumoperitoneum. Small amount of free fluid in the deep pelvis as well as some fluid overlying the dome of the liver interposed between the liver and the diaphragm. Generalized third spacing of fluid. Please correlate for possible sepsis. Patchy residual contrast retention in both kidneys without the administration of new iodinated contrast. Highly suspect this patient has underlying contrast- induced nephropathy with possible subsequent renal failure. Telephone Technician consultation recommended. No demarcated fluid collection is a suggest a site of drainable abscess identified. Interval development of bibasilar infiltrates. Question atelectasis versus pneumonia. A&P Additional A&P Information (1) Acute kidney injury, nonoliguric, BUN, CR falling. CT abdomen showed residual contrast in kidneys suggesting JASPER. (2) Rhabdomyolysis: much better, CK now 1771 (3) Septic shock resolving (4) Acute anemia: Follow hb, transfuse as needed Attestations Medical Necessity Statement*: remains in ICU Time Spent in Patient Care: 16 - 35 minutes Procedures Arterial Line Size (Gauge): 20 Coding Level of Care Code Acute Utility Accounts Director for Chg Edilson
--- NOTE | 2020-04-19 14:16 | PC.NURSE ---
2mg Morphine wasted in sharps. Waste witnessed by ALIRIO Hidalgo. Patient transferred back to bed from chair, after being up in chair for 4 hours. Patient handled transfer well. 2 person assist. Pain levels increased, and morphine was given to try and combat pain levels.
--- NOTE | 2020-04-19 15:40 | PC.NURSE ---
Lou ring left hand 3rd finger I removed patient's ring due to edema and concerns for poor circulation to finger. Removed ring using gel pack and rotating ring off of the finger. I did place ring back on the patient's pinky finger and tape it in place. Ring was snug on pinky finger. Will continue to assess finger. Patients ring/3rd finger had good cap refill after ring removal. No other jewelry noted.
[2020-04-19] MEDS: hyDRALAzine 25 mg Tablet PO ×2 (16:28→17:41)
--- NOTE | 2020-04-19 19:03 | PC.NURSE ---
Report given to crime specialist nurse. No needs by patient at this time. Abdominal dressings changed. 2 ABD pads, and 4x4 gauze pads over Roni drains. 2mg Morphine given IVP before dressing change, with waste in sharps. Witnessed by ALIRIO Weston.
--- NOTE | 2020-04-19 19:15 | PM.CONSULT ---
Providers/Reason For Consult Consulting Physican/Specialty*: Dr. Duckworth Datar / Pulmonary Reason for Consult*: Persistent leukocytosis and postop patient on antibiotics with bilateral lower lobe infiltrates on CT Attending Physician: Toño Villegas MD History of Present Illness History of Present Illness Irma Jones is a 54 year old female s/p laparotomy for multiple intra-abdominal abscesses on 04/14/2020. Patient was improving clinically and is out of bed to chair. Follow-up abdominal CT showed bilateral lower lobe infiltrates and patient's labs were reflecting persistent leukocytosis. Patient already on broad coverage with imipenem and vancomycin. Pulmonary consultation requested for possible bronc and BAL. At bedside patient is sitting in chair complaining of back pain and abdominal pain but otherwise did not need any difficulty breathing or chest pain. On tube feeding started passing gas. Doing spirometry but ineffective due to abdominal pain. Reported mild cough with with yellowish/greenish sputum sputum. Reported smoking 1 pack/day for more than 30 years but not on any inhalers. Review of Systems General: Reports: 10 or more systems reviewed and unremarkable except in HPI and below Meds/Allergies Home Medications and Allergies Home Medications Medication Instructions Recorded Confirmed Last Taken Type esomeprazole magnesium 40 mg 40 mg PO QDAY 09/17/19 04/14/20 04/13/20 History capsule,delayed release hydrochlorothiazide 12.5 mg tablet 12.5 mg PO DAILY 09/17/19 04/14/20 Unknown History lovastatin 20 mg tablet 40 mg PO BEDTIME 09/17/19 04/14/20 Unknown History ondansetron HCl 4 mg tablet 4 mg PO Q8H PRN tab 09/17/19 04/14/20 Unknown History valsartan 80 mg tablet 80 mg PO QDAY 09/17/19 04/13/20 Unknown History baclofen 10 mg tablet 10 mg PO TID PRN 11/25/19 04/14/20 Unknown History gabapentin 300 mg capsule 300 mg PO BID #60 cap 11/25/19 04/14/20 Unknown Rx tizanidine 4 mg tablet 4 mg PO BID PRN #60 tab MDD 2 11/25/19 04/13/20 Unknown Rx alprazolam 1 mg tablet 1 mg PO TID PRN #90 tab 01/05/20 04/14/20 Unknown Rx citalopram 40 mg tablet 40 mg PO .morning #30 tab 01/05/20 04/14/20 Unknown Rx hydroxyzine HCl 50 mg tablet 50 mg PO BID PRN #60 tab 01/05/20 04/14/20 Unknown Rx atorvastatin 40 mg PO BEDTIME 04/14/20 04/14/20 Unknown History fenofibrate 145 mg PO BEDTIME 04/14/20 04/14/20 Unknown History potassium chloride 20 meq PO BID 04/14/20 04/14/20 Unknown History trazodone 300 mg PO .bedtime PRN 04/14/20 04/14/20 Unknown History Allergies Allergy/AdvReac Type Severity Reaction Status Date / Time codeine Allergy Unknown rash, Verified 04/13/20 21:43 itching Penicillins Allergy Unknown rash, Verified 04/13/20 21:43 itching Sulfa (Sulfonamide Allergy Unknown rash, Verified 04/13/20 21:43 Antibiotics) itching Current Medications Current Medications Generic Name Dose Route Start Last Admin Trade Name Freq PRN Reason Stop Dose Admin Albuterol/Ipratropium 3 ml 04/15/20 09:00 04/19/20 14:57 Duoneb INHALATION 3 ml Q6H.RESPIRATORY BRITTNEY Administration Alprazolam 1 mg 04/19/20 18:28 04/19/20 18:38 Xanax PO 1 mg TID PRN Administration ANXIETY Budesonide 0.5 mg 04/15/20 08:00 04/19/20 08:29 Pulmicort INHALATION 0.5 mg BID.RESPIRATORY BRITTNEY Administration Norepinephrine Bitartrate 4 mg 254 mls @ 0 mls/hr 04/14/20 05:00 04/18/20 07:00 / Dextrose IV Infused .Q0M BRITTNEY Titration Protocol Per Protocol Epinephrine HCl 2.5 mg/ Sodium 252.5 mls @ 0 mls/hr 04/14/20 06:45 04/17/20 16:31 Chloride IV Infused .Q0M BRITTNEY Titration Protocol Per Protocol Albumin Human 25 gm in 100 mls @ 60 mls/hr 04/14/20 07:45 04/19/20 18:17 Albumin IV Infused Q8H BRITTNEY Infusion Vasopressin 100 unit/ Sodium 100 mls @ 0 mls/hr 04/14/20 07:45 04/15/20 08:00 Chloride IV Infused .Q0M BRITTNEY Titration Protocol Per Protocol Norepinephrine Bitartrate 8 mg 508 mls @ 0 mls/hr 04/14/20 10:30 04/18/20 14:15 / Dextrose IV Infused .Q0M BRITTNEY Titration Protocol Per Protocol Levofloxacin/Dextrose 500 mg in 100 mls @ 100 mls/hr 04/17/20 07:30 04/19/20 08:41 Levaquin-D5w IV Infused Q48H BRITTNEY Infusion Potassium Chloride/Sodium Chloride 20 meq in 1,000 mls @ 50 mls/hr 04/16/20 18:00 04/19/20 18:14 Sodium Chlor 0.9% + Kcl 20 Meq IV 50 mls/hr .Q20H BRITTNEY Administration Imipenem/Cilastatin Sodium 250 100 mls @ 200 mls/hr 04/19/20 08:00 04/19/20 14:58 mg/ Sodium Chloride IV Infused Q6H BRITTNEY Infusion Protocol Vancomycin HCl 1,000 mg/ 250 mls @ 250 mls/hr 04/19/20 11:30 04/19/20 13:08 Sodium Chloride IV Infused Q24H BRITTNEY Infusion Protocol Morphine Sulfate 2 mg 04/17/20 06:24 04/19/20 17:58 Morphine IVP 2 mg Q2H PRN Administration SEVERE PAIN Pantoprazole Sodium 40 mg 04/15/20 09:00 04/19/20 08:47 Protonix IVP 40 mg DAILY BRITTNEY Administration PFSH Acute PFSH: Medical History Generalized anxiety disorder 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, recurrent severe without psychotic features Nicotine dependence, cigarettes, uncomplicated Surgical History H/O of hysterectomy with bilateral oophorectomy Family History Mother CHF (congestive heart failure) Social History Smoking and tobacco status: current every day smoker cigarettes Packs smoked per day: 1 Alcohol intake: current Alcohol intake frequency: few times a month Household members: family Marital status: Current occupational status: unemployed History of recent travel: No Vitals/I&O/Wt Last Vital Signs Temp 98.7 F 04/19/20 18:00 Pulse 115 H 04/19/20 18:00 Resp 39 H 04/19/20 18:00 BP 197/104 04/19/20 18:00 Pulse Ox 92 04/19/20 18:00 04/19/20 04/19/20 04/19/20 06:59 14:59 22:59 Intake Total 1430.417 / 5041.702 1650.417 / 1650.417 628.333 / 2278.750 Output Total 1050 / 3170 1190 / 1190 1490 / 2680 Balance 380.417 / 1871.702 460.417 / 460.417 -861.667 / -401.250 Physical Exam Narrative: EXAM NARRATIVE: General: alert, appears to be in pain HEENT: conj clear, EOMI, PERRL, mmm, Neck: supple, no meningismus Heme: no cervical LAP Pulmonary: Bibasilar crackles Cardiovascular: rrr, nl s1s2, no mrg Abdomen: Abdominal binder in place nt, nd, no r/g, bs+ Extremities: pulses +, no edema, no c/c : no CVA tenderness Neurologic: grossly intact Urinary Catheter Management^: Romano: Cath Placed During This Visit: yes, but has since been removed by the nurse Reason for Continuing Indwelling Catheter: Decision to DC Catheter Urinary Catheter Date of Insertion: 04/19/20 Urinary Catheter Time of Insertion: 08:51 Date Urinary Catheter Removed: 04/19/20 Time Urinary Catheter Discontinued: 08:28 Data Micro: Micro: Microbiology 04/14/20 06:34 Blood Culture - Fi nal Blood Coagulase negat iv staphylococc 04/14/20 06:41 Blood Culture - Fi nal Blood NO GROWTH AFTER 5 DAYS A&P Assessment and plan (1) Leukocytosis, unspecified: Status: Acute Qualifiers: Leukocytosis type: leukemoid reaction Qualified Code(s): D72.823 - Leukemoid reaction (2) Bilateral pulmonary infiltrates on chest x-ray: Status: Acute (3) Pneumonia: Status: Acute Qualifiers: Pneumonia type: due to unspecified organism Laterality: bilateral Lung location: lower lobe of lung Qualified Code(s): J18.9 - Pneumonia, unspecified organism (4) COPD (chronic obstructive pulmonary disease): Status: Acute (5) Smoker: Status: Acute #Persistent leukocytosis with bilateral infiltrates on CT imaging #Postop pneumonia versus aspiration pneumonia due to vomiting -Could be leukemoid reaction postoperatively-to rule out pneumonia -Small pelvic collection on CT abdomen pelvis still present-surgery to follow-up -currently not in respiratory distress saturating 96% on 5 L nasal cannula -ABG on 40% FiO2 7.3 -Imaging could be bilateral atelectasis due to ineffective spirometry and presence of abdominal pain due to-recent surgery -Blood cultures coagulase-negative staph 08/30 likely contamination -Currently on vancomycin, imipenem, Levaquin -bronchoscopy tomorrow morning to obtain samples for BAL, wash and airway clearance. N.p.o.-after midnight -We will send for BAL cultures, fungal studies -Encourage incentive spirometry and out of bed to chair as much possible #COPD #Chronic current smoker-1 pack/day for more than 30 years -Need PFTs as outpatient -Says never used any inhalers -Continue DuoNeb nebulizations every 6 hour scheduled and Pulmicort twice daily Medical condition, labs, investigations, medications, counseling regarding medication compliance, side effects, importance of follow-up appointments, smoking-its adverse effects and importance of cessation and plan of care-everything explained in detail to the patient. Patient verbalized understanding and agreed with the plan of care. Recommendations conveyed to Dr. Donahue and and Dr. Harper Consult Attestations Medical Necessity Statement: Postop pneumonia/aspiration pneumonia with persistent leukocytosis Time Spent in Patient Care: Greater than 35 minutes (>than 50% of time spent in counselling and/or direct pt care on unit). Critical Care Time: Critical Care Time (min): 40 Procedures Arterial Line Size (Gauge): 20 Coding Level of Care Code New Pt Acute Supervisor Type Photography for Chg Fwd Patient Type New History Comprehensive Exam Comprehensive Medical Decision Making High Complexity Diagnoses Leukocytosis, unspecified D72.823 Leukocytosis type: leukemoid reaction Bilateral pulmonary infiltrates on chest x-ray R91.8 Pneumonia J18.9 Pneumonia type: due to unspecified organism Laterality: bilateral Lung location: lower lobe of lung COPD (chronic obstructive pulmonary disease) J44.9 Smoker F17.200 Time Spent (min) 40
[2020-04-19] MEDS: hyDRALAzine 25 mg Tablet 50 MG PO (20:13)
[2020-04-20] VITALS (42 sets, daily range): BP systolic 90–171; BP diastolic 52–106; PULSE 93–118; RESP 14–35; TEMP 37.2–37.9; O2SAT 88–99
[2020-04-20] MEDS: morphine 4 mg/mL SDV 1 mL 2 MG IVP ×2 (01:50→22:12)
[2020-04-20] MEDS: hyDRALAzine 20 mg/mL INJ 1 mL 10 MG IVP (02:30)
--- NOTE | 2020-04-20 03:10 | XRR_ITS ---
PROCEDURE INFORMATION: Exam: XR Chest, 1 View Exam date and time: 04/20/2020 4:44 AM Age: 54 years old Clinical indication: Shortness of breath; Patient HX: On bi pap, ng; Additional info: SOB TECHNIQUE: Imaging protocol: XR of the chest Views: 1 view. COMPARISON: CR XR chest 1V portable [id number] 04/17/2020 9:43 AM FINDINGS: Tubes, catheters and devices: Left subclavian approach central venous catheter tip projects over the superior vena cava. Lungs: Bilateral hazy lung opacities. Pleural space: Unremarkable. No pleural effusion. No pneumothorax. Heart/Mediastinum: The heart is enlarged. The pulmonary venous structures are prominent and indistinct. There is interstitial prominence. Findings are consistent with congestive heart failure. Bones/joints: Unremarkable. Other findings: There is a G-tube in place, partially visualized. XR/XR chest 1V portable [id number] IMPRESSION: 1. Findings stated above are consistent with congestive heart failure. 2. Bilateral hazy pulmonary opacities are nonspecific and may represent pulmonary edema. Pneumonia cannot be excluded.
[2020-04-20] MEDS: ipratropium-albuterol 3 mL Neb INHALATION ×4 (03:18→20:26)
[2020-04-20 04:00] LABS: ABG PCO2 27.3 mmHg (35-45); Arterial Blood Gas Hematocrit 29.6 % (37-47); Blood Gas Operator Identificat JB; Blood Gas Sample Site Brachial, right; Blood Gas Sample Type Arterial; Carboxyhemoglobin 1.2 %THgb (0.4-20.1); HCO3 ABG 21.5 mmol/L (22-26); HGB O2 Sat 93.6 % (95-100); Oxygen Device BIPAP; PO2 ABG 74.8 mmHg (80.0-100.0); Total Hemoglobin 9.7 g/dL (12-16)
[2020-04-20 04:43] LABS: Hematocrit 28.2 % (37.0-47.0); Hemoglobin 8.7 g/dL (11.5-15.3); Lymphocytes # 2.2 10^3/uL (0.8-4.8); Lymphocytes % 5.3 %; Mean Corpuscular HGB Conc 30.9 g/dL (30.0-36.0); Mean Corpuscular Hemoglobin 29.2 pg (28.0-34.0); Mean Corpuscular Volume 94.6 fL (81-99); Mean Platelet Volume 8.9 fL (7.4-10.4); Monocytes # 1.8 10^3/uL (0.2-0.9); Monocytes % 4.3 %; Neutrophils # 28.54 10^3/uL (1.8-7.7); Nucleated Red Blood Cells % 0.1 %; Platelet Count 151 10^3/cmm (130-400); Red Blood Count 2.98 10^6/uL (4.1-5.3); Red Cell Distribution Width 15.9 % (12.1-15.1)
[2020-04-20 05:13] LABS: Alanine Aminotransferase 176 U/L (0-33); Albumin Level 3.9 g/dL (3.5-5.2); Alkaline Phosphatase 155 IU/L (35-105); Aspartate Amino Transferase 113 U/L (0-32); Blood Urea Nitrogen 59 mg/dL (6-20); Calcium 8.5 mg/dL (8.5-10.5); Carbon Dioxide 22 mmol/L (22-29); Chloride 110 mmol/L (98-107); Creatinine Clr Calc Pharmacy 54.2901; Globulin 2.5 g/dL (1.3-4.6); Glucose 97 mg/dL (65-115); Magnesium 1.3 mg/dL (1.7-2.3); Osmolality Calculated 303 mOsm/kg (285-295); Sodium 147 mmol/L (136-145); Total Bilirubin 1.6 mg/dL (0.15-1.2); Total Protein 6.4 g/dL (6.6-8.7)
[2020-04-20 05:30] LABS: Creatine Phosphokinase 954 U/L (26-192)
[2020-04-20] MEDS: magnesium sulfate premix 2 GM/50 ML PIGGYBACK IV (05:35)
--- NOTE | 2020-04-20 06:04 | XRR_ITS ---
PROCEDURE INFORMATION: Exam: XR Abdomen, 1 View Exam date and time: 04/20/2020 6:31 AM Age: 54 years old Clinical indication: Condition or disease; Other: Perf bowel; Additional info: Abdominal distention TECHNIQUE: Imaging protocol: XR of the abdomen. Views: Frontal supine view of the abdomen. 1 View. COMPARISON: CT abdomen pelvis con [id number] 04/18/2020 10:37 AM FINDINGS: Tubes, catheters and devices: ET tube tip positioned in the left upper quadrant in the expected location of the stomach body. There are drainage tubes in the pelvic region. Gastrointestinal tract: There are air-filled nondilated small and large bowel loops. Intraperitoneal space: Distended abdomen with possible ascites. Surgical clips overlie the left abdomen and pelvis. Bones/joints: Unremarkable. XR/XR KUB portable [id number] IMPRESSION: Distended abdomen with possible ascites. There are air-filled nondilated small and large bowel loops.
--- NOTE | 2020-04-20 06:04 | PM.PN ---
Subjective Subjective: Interval history: Patient continued to be intubated yet she did have issues with oxygenation and she was placed on CPAP and she has been doing well, pulmonary service was consulted to assist the patient and Dr. Mcneal is planning to perform a bronchoscopy today in the OR with possible intubation. Tube feeds were increased to 30 and patient did develop some abdominal distention yet she continues to pass gas. Patient's leukocytosis continued to be trending up Vitals/I&O/Wt Last Vital Signs Temp 98.9 F 04/20/20 04:00 Pulse 105 H 04/20/20 05:29 Resp 25 H 04/20/20 04:00 BP 143/78 04/20/20 04:00 Pulse Ox 95 04/20/20 05:29 04/19/20 04/19/20 04/20/20 14:59 22:59 06:59 Intake Total 1650.417 / 1650.417 848.333 / 2498.750 200 / 2698.750 Output Total 1190 / 1190 1840 / 3030 920 / 3950 Balance 460.417 / 460.417 -991.667 / -531.250 -720 / -1251.250 Physical Exam Narrative: EXAM NARRATIVE: Patient is conscious alert oriented X3 BMI 33 Head and neck examination PERRLA no masses no cervical lymphadenopathy no jaundice Cardiac examination audible S1-S2 no murmurs no gallops no arrhythmias Chest fair air entry bilateral Abdomen tender over the right upper quadrant and at the incision site moderately distended soft no organomegaly guarding or rigidity/no signs of peritonitis. Ecchymotic patch appreciated towards the right side of the abdomen Drains in place with serosanguineous output Wound bed is clean evidence of ascitic-like fluid soaking the dressing which is expected due to third spacing Romano catheter clearer urine output Extremities no cyanosis no clubbing no edema Urinary Catheter Management^: Romano: Cath Placed During This Visit: yes, but has since been removed by the nurse Reason for Continuing Indwelling Catheter: Accurate Measurement of Urinary Output in Critically Ill Patients Urinary Catheter Date of Insertion: 04/19/20 Urinary Catheter Time of Insertion: 08:51 Date Urinary Catheter Removed: 04/19/20 Time Urinary Catheter Discontinued: 08:28 Data : 04/21/20 04:05 04/21/20 04:05 Micro: Microbiology 04/14/20 06:34 Blood Culture - Final Blood Coagulase negativ staphylococc 04/14/20 06:41 Blood Culture - Final Blood NO GROWTH AFTER 5 DAYS A&P Assessment and plan (1) Sepsis: Aggressive pulmonary toilet Will follow on pulmonology service recommendations, I am very concerned about the patient's underlying pneumonitis and atelectasis that would explain much of her persistent leukocytosis. We will coordinate care with Dr. Mcneal and Dr. Harper. As CT scan of the abdomen and pelvis did not show any abscess formation or fluid collection that may require additional drainage as already patient had Two drains the left one located towards the pelvis and the right one located towards the right paracolic gutter with serosanguineous output. Status: Acute (2) Bowel perforation: Plan: PLAN OF CARE: CVS: Continue continuous cardiac monitoring Continue SCDs PULMONARY: Aggressive pulmonary toilet Incentive spirometer Diuretic therapy per hospitalist service We will follow on bronchoscopy results today GI: N.p.o. and NG to low intermittent wall suction We will obtain a portable KUB to assess patient's abdominal distention NUTRITION; will resume tube feeds later on yet tropics RENAL: Continue monitoring kidney functions Strict I's and O's Continue electrolyte protocols for replacement including calcium potassium and magnesium We will DC Romano catheter and switch to new one INFECTIOUS DISEASE: Per hospitalist service NEUROLOGY: GCS 15 out of 15 MOBILITY: Continue physical therapy/out of bed to the chair SKIN AND WOUND: Daily wet-to-dry dressing change and packing of the abdominal wound Pain control; IV pain medication Will continue Family Updates and have case management to discuss further rehabilitation with the patient and the family coordinate with physical therapy and hospitalist services. Status: Resolved Attestations Medical Necessity Statement*: Medical necessity care is expected to cross 2 midnights Time Spent in Patient Care: (>than 50% of time spent in counselling and/or direct pt care on unit). Procedures Arterial Line Size (Gauge): 20 Coding Level of Care Code Acute Emergency Department Coordinator for jonathan Fweddie Diagnoses Sepsis A41.9 Bowel perforation K63.1
[2020-04-20 06:18] LABS: Slide Review Slide Review Perform
[2020-04-20 06:19] LABS: White Blood Count 41.4 10^3/uL (4.0-10.0)
[2020-04-20] MEDS: metoclopramide 5 mg/mL SDV 2 mL 10 MG IVP ×2 (08:06→14:28)
[2020-04-20] MEDS: budesonide 0.5 mg/2 mL Neb INHALATION ×2 (08:07→20:25)
[2020-04-20] MEDS: pantoprazole 40 mg SDV IVP ×2 (08:07→10:09)
[2020-04-20] MEDS: FUROsemide 10 mg/mL SDV 4mL 40 MG IVP ×2 (08:15→21:15)
[2020-04-20] MEDS: lidocaine 1% INJ 20 mL XX (08:41)
--- NOTE | 2020-04-20 08:51 | PC.OT ---
OT tx attempted. Pt off the floor for procedure. Will plan to attempt tx again this afternoon if possible.
[2020-04-20] MEDS: labetalol 5 mg/mL SDV 20mL 20 MG IVP (09:46)
--- NOTE | 2020-04-20 09:54 | ANES.PREANE2 ---
Pre-Anesthetic Assessment Pre-Anesthetic Assessment: Height/Weight: Height 1.52 m Weight 77.111 kg Temp Pulse Resp BP Pulse Ox 98.9 F 103 H 14 150/83 94 04/20/20 04:00 04/20/20 08:10 04/20/20 09:31 04/20/20 08:00 04/20/20 08:07 Preop Diagnosis: Perforated viscus Proposed Procedure: Operation Date: 04/13/20 22:30 Proposed Procedures p Laparoscopy(Not Applicable) - Toño Villegas MD s Exploratory Laparotomy(Not Applicable) - Toño Villegas MD s Laparoscopic Colon Resection(Not Applicable) - Toño Villegas MD Operation Date: 04/20/20 07:50 Proposed Procedures p Bronchoscopy(Not Applicable) - Gucci Mcneal MD Was Beta Edwin taken within 24 hours: N/A Last intake: Intake Last Liquid Date 04/13/20 Last Liquid Time 20:43 Last Solid Date 04/07/20 Last Solid Time 12:00 Social: Social History: Tobacco Exam: Additional Exam Findings (including area of procedure): Physical Exam showed a sedated patient who appeared air hungry on BIPAP. She responded to simple commands. Her lungs demonstrated very moist rales and markedly diminished BS at the bases. Heart was rapid and regular with no discernable abnoramilities. Airway: Submandibular: Other Cervical ROM: Other MP: 3 (Previous anesthesic reviewed ) Pulmonary: Pulmonary: COPD CV/HEM: CV/HEM: HTN : : Chronic renal Insufficiency Comments: Acute on chronic renal insufficiency Hepatic: Hepatic: None reported GI: Comments: Severe, perforated ulcerative colitis s/p ex lap Metabolic: Metabolic: Hyperlipidemia Musc/skel: Musc/skel: None reported Neuropsych: Neuropsych: Anxiety and Depression Anesthetic Plan: ASA status: 4E Anesthesia: General Other: Return to IC intubated and ventilated. Meds/Allergies Current Medications: Current Medications Generic Name Dose Route Start Last Admin Trade Name Freq PRN Reason Stop Dose Admin Albuterol/Ipratrop ium 3 ml 04/15/20 09:00 04/20/20 08:07 Duoneb INHALATION 3 ml Q6H.RESPIRATORY S CH Administration Alprazolam 1 mg 04/19/20 18:28 04/19/20 18:38 Xanax PO 1 mg TID PRN Administration ANXIETY Budesonide 0.5 mg 04/15/20 08:00 04/20/20 08:07 Pulmicort INHALATION 0.5 mg BID.RESPIRATORY S CH Administration Furosemide 40 mg 04/20/20 07:45 04/20/20 08:16 Lasix IVP Not Given Q12H BRITTNEY Hydralazine HCl 50 mg 04/19/20 21:00 04/19/20 20:13 Apresoline PO 50 mg QID BRITTNEY Administration Hydralazine HCl 10 mg 04/20/20 02:19 04/20/20 02:30 Apresoline IVP 10 mg Q4H PRN Administration Systolic blood pr essure greater brianne n 180, diastolic g reater than 100 Norepinephrine Bit artrate 4 mg 254 mls @ 0 mls/h r 04/14/20 05:00 04/18/20 07:00 / Dextrose IV Infused .Q0M BRITTNEY Titration Protocol Per Protocol Epinephrine HCl 2. 5 mg/ Sodium 252.5 mls @ 0 mls /hr 04/14/20 06:45 04/17/20 16:31 Chloride IV Infused .Q0M BRITTNEY Titration Protocol Per Protocol Albumin Human 25 gm in 100 mls @ 60 mls/hr 04/14/20 07:45 04/20/20 07:15 Albumin IV 100 mls/hr Q8H BRITTNEY Administration Vasopressin 100 un it/ Sodium 100 mls @ 0 mls/h r 04/14/20 07:45 04/15/20 08:00 Chloride IV Infused .Q0M BRITTNEY Titration Protocol Per Protocol Norepinephrine Bit artrate 8 mg 508 mls @ 0 mls/h r 04/14/20 10:30 04/18/20 14:15 / Dextrose IV Infused .Q0M BRITTNEY Titration Protocol Per Protocol Levofloxacin/Dextr ose 500 mg in 100 mls @ 100 mls/hr 04/17/20 07:30 04/19/20 08:41 Levaquin-D5w IV Infused Q48H BRITTNEY Infusion Imipenem/Cilastati n Sodium 250 100 mls @ 200 mls /hr 04/19/20 08:00 04/20/20 08:38 mg/ Sodium Chlor jaleel IV Infused Q6H BRITTNEY Infusion Protocol Vancomycin HCl 1,0 00 mg/ 250 mls @ 250 mls /hr 04/19/20 11:30 04/19/20 13:08 Sodium Chloride IV Infused Q24H BRITTNEY Infusion Protocol Lidocaine HCl 20 ml 04/20/20 09:48 04/20/20 08:41 Lidocaine 1% XX 04/20/20 09:49 20 ml ONCE ONE Administration Lidocaine HCl 1 applic 04/20/20 09:51 04/20/20 08:41 Lidocaine 2% Jel ly TOPICAL 04/20/20 09:52 1 applic ONCE ONE Administration Metoclopramide HCl 10 mg 04/20/20 07:56 04/20/20 08:06 Reglan IVP 10 mg Q6H PRN Administration NAUSEA AND VOMITI NG Morphine Sulfate 2 mg 04/17/20 06:24 04/20/20 01:50 Morphine IVP 2 mg Q2H PRN Administration SEVERE PAIN Pantoprazole Sodiu m 40 mg 04/15/20 09:00 04/20/20 08:07 Protonix IVP 40 mg DAILY BRITTNEY Administration PFSH Anesthesia PFSH: Medical History Generalized anxiety disorder 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, recurrent severe without psychotic features Nicotine dependence, cigarettes, uncomplicated Surgical History H/O of hysterectomy with bilateral oophorectomy Family History Mother CHF (congestive heart failure) Social History Smoking and tobacco status: current every day smoker cigarettes Packs smoked per day: 1 Alcohol intake: current Alcohol intake frequency: few times a month Household members: family Marital status: Current occupational status: unemployed History of recent travel: No Data Anesthesia CBC & Chem 7: 04/20/20 04:13 04/20/20 04:13 Other Labs: Laboratory Results - last 48 hr 04/18/20 04/19/20 04/19/20 09:40 03:24 03:24 WBC 39.9 H* RBC 2.96 L Hgb 8.6 L Hct 29.3 L MCV 99.0 MCH 29.1 MCHC 29.4 L RDW 16.2 H Plt Count 169 MPV 9.0 Neut % (Auto) Lymph % (Auto) Not Reportable [place] % (Auto) Not Reportable Eos % (Auto) Baso % (Auto) Neut # (Auto) Lymph # (Auto) Not Reportable [place] # (Auto) Not Reportable Eos # (Auto) Baso # (Auto) Nucleated RBC % (auto) Total Counted 100 Absolute Neutrophils 32.3 H Segmented Neutrophils 68 Abs Segm Neuts (Man) 27.1 H Band Neutrophils 13.0 Abs Band Neuts (Man) 5.2 H Lymphocytes (Manual) 10 Monocytes (Manual) 2.0 Absolute Monocytes 0.8 H Metamyelocytes 6.0 Myelocytes 1.0 Nucleated RBCs # Platelet Estimate Normal Polychromasia 1+ H Hypochromasia 3+ H Stomatocytes Trace Rouleaux 1+ H Specimen Type Sample Site ABG pH ABG pCO2 ABG pO2 ABG HCO3 ABG Base Excess Jorge Test Hematocrit Hgb O2 Saturation Carboxyhemoglobin Methemoglobin Total Hemoglobin O2 Delivery Device FiO2 Delivery Representative ID Sodium Potassium Chloride Carbon Dioxide Anion Gap BUN Creatinine GFR Calculation Glucose Calculated Osmolality Calcium Magnesium Total Bilirubin AST ALT Alkaline Phosphatase Creatine Kinase 1771 H* Total Protein Albumin Globulin Blood Type O Positive Rho(D) Type Positive Antibody Screen Negative Crossmatch See Detail 04/19/20 04/20/20 04/20/20 03:24 03:49 04:13 WBC RBC Hgb Hct MCV MCH MCHC RDW Plt Count MPV Neut % (Auto) Lymph % (Auto) [place] % (Auto) Eos % (Auto) Baso % (Auto) Neut # (Auto) Lymph # (Auto) [place] # (Auto) Eos # (Auto) Baso # (Auto) Nucleated RBC % (auto) Total Counted Absolute Neutrophils Segmented Neutrophils Abs Segm Neuts (Man) Band Neutrophils Abs Band Neuts (Man) Lymphocytes (Manual) Monocytes (Manual) Absolute Monocytes Metamyelocytes Myelocytes Nucleated RBCs # Platelet Estimate Polychromasia Hypochromasia Stomatocytes Rouleaux Specimen Type Arterial Sample Site Brachial, right ABG pH 7.50 H ABG pCO2 27.3 L ABG pO2 74.8 L ABG HCO3 21.5 L ABG Base Excess -1.0 Jorge Test N/a Hematocrit 29.6 L Hgb O2 Saturation 93.6 L Carboxyhemoglobin 1.2 Methemoglobin 1.0 Total Hemoglobin 9.7 L O2 Delivery Device Bipap FiO2 40.0 Delivery Representative ID Eduin Sodium 142 Potassium 4.9 Chloride 106 Carbon Dioxide 17 L Anion Gap 23.9 H BUN 69 H Creatinine 1.8 H GFR Calculation 29.4 L Glucose 70 Calculated Osmolality 292 Calcium 8.6 Magnesium 1.8 Total Bilirubin 1.8 H AST 285 H ALT 297 H Alkaline Phosphatase 175 H Creatine Kinase 954 H* Total Protein 6.1 L Albumin 3.5 Globulin 2.6 Blood Type Rho(D) Type Antibody Screen Crossmatch 04/20/20 04/20/20 04:13 04:13 WBC 41.4 H* RBC 2.98 L Hgb 8.7 L Hct 28.2 L MCV 94.6 MCH 29.2 MCHC 30.9 RDW 15.9 H Plt Count 151 MPV 8.9 Neut % (Auto) 69.0 Lymph % (Auto) 5.3 [place] % (Auto) 4.3 Eos % (Auto) 0.0 Baso % (Auto) 0.0 Neut # (Auto) 28.54 H Lymph # (Auto) 2.2 [place] # (Auto) 1.8 H Eos # (Auto) 0.0 Baso # (Auto) 0.0 Nucleated RBC % (auto) 0.1 Total Counted Absolute Neutrophils Segmented Neutrophils Abs Segm Neuts (Man) Band Neutrophils Abs Band Neuts (Man) Lymphocytes (Manual) Monocytes (Manual) Absolute Monocytes Metamyelocytes Myelocytes Nucleated RBCs # 0.0 Platelet Estimate Polychromasia Hypochromasia Stomatocytes Rouleaux Specimen Type Sample Site ABG pH ABG pCO2 ABG pO2 ABG HCO3 ABG Base Excess Jorge Test Hematocrit Hgb O2 Saturation Carboxyhemoglobin Methemoglobin Total Hemoglobin O2 Delivery Device FiO2 Delivery Representative ID Sodium 147 H Potassium 4.0 Chloride 110 H Carbon Dioxide 22 Anion Gap 19.0 BUN 59 H Creatinine 1.1 H GFR Calculation 52.0 L Glucose 97 Calculated Osmolality 303 H Calcium 8.5 Magnesium 1.3 L Total Bilirubin 1.6 H AST 113 H ALT 176 H Alkaline Phosphatase 155 H Creatine Kinase Total Protein 6.4 L Albumin 3.9 Globulin 2.5 Blood Type Rho(D) Type Antibody Screen Crossmatch Micro: Microbiology 04/14/20 06:34 Blood Culture - Final Blood Coagulase negativ staphylococc 04/14/20 06:41 Blood Culture - Final Blood NO GROWTH AFTER 5 DAYS Cardiac Studies: No Data to Display
--- NOTE | 2020-04-20 10:00 | PM.PN ---
Subjective Subjective: Interval history: Patient had bronchoscopy this morning. Discussed with Dr. Mcneal who reports that airways was clear. Patient was intubated postprocedure as she was hypoxic. She was brought back to ICU tachycardic with heart rate in 140s and hypertensive. She significantly improved with 1 dose of IV labetalol 20 mg. Her abdominal incision looks good, not malodorous. Her left sided MICHELLE drain appears very dark, serosanguineous and this was requested to be cultured. Her right-sided drain that drains upper abdomen is clear serosanguineous looking. Her white blood cell count again increased to 41.4. Platelets further declining and hemoglobin appears stable. Her chest x-ray was suggestive of pulmonary edema secondary to IV hydration. IV fluids were discontinued and patient was given 1 dose 20 mg IV Lasix prior to going for bronchoscopy. Patient came back with significant urinary output in Romano bag. Her creatinine is down to 1.1. Magnesium was 1.3 and 4 g was ordered this morning. CK is down to 954. Albumin is up to 3.9 therefore this will be discontinued. Medications: Reviewed: Yes Vitals/I&O/Wt Last Vital Signs Temp 98.9 F 04/20/20 04:00 Pulse 103 H 04/20/20 08:10 Resp 14 04/20/20 09:31 BP 150/83 04/20/20 08:00 Pulse Ox 94 04/20/20 08:07 04/19/20 04/20/20 04/20/20 22:59 06:59 14:59 Intake Total 848.333 / 2498.750 200 / 2698.750 870 / 870 Output Total 1840 / 3030 1070 / 4100 400 / 400 Balance -991.667 / -531.250 -870 / -1401.250 470 / 470 Physical Exam Const: OTHER: Not in any distress. Resp: COMMON NORMALS: clear to auscultation bilaterally AUSCULTATION: clear to auscultation bilaterally OTHER: Lungs with very minimal bibasilar Rales. Cardio: COMMON NORMALS: regular rate, regular rhythm and S2 normal heart sound present RATE: regular rate RHYTHM: regular rhythm HEART SOUNDS: S2 normal heart sound present OTHER: No lower extremity edema GI: COMMON NORMALS: Soft to palpation and non-tender PALPATION: Yes Soft to palpation OTHER: Abdominal incision dressed. Good bowel sounds. Not distended. Neuro: COMMON NORMALS: no focal motor deficits OTHER: Alert and oriented x3. Urinary Catheter Management^: Romano: Cath Placed During This Visit: yes, but has since been removed by the nurse Reason for Continuing Indwelling Catheter: Accurate Measurement of Urinary Output in Critically Ill Patients Urinary Catheter Date of Insertion: 04/19/20 Urinary Catheter Time of Insertion: 08:51 Date Urinary Catheter Removed: 04/19/20 Time Urinary Catheter Discontinued: 08:28 Data : 04/20/20 04:13 04/20/20 04:13 Micro: Microbiology 04/14/20 06:34 Blood Culture - Final Blood Coagulase negativ staphylococc 04/14/20 06:41 Blood Culture - Final Blood NO GROWTH AFTER 5 DAYS A&P Assessment and plan (1) Bowel perforation: Status: Resolved (2) Acute kidney injury: Prerenal initially and now appears to be renal. Acute tubular necrosis with multiple etiologies including rhabdomyolysis and hypotension Status: Acute (3) Generalized anxiety disorder: Status: Chronic (4) Dehydration with hyponatremia: Status: Acute (5) Severe sepsis with acute organ dysfunction due to Gram negative bacteria: As exhibited by tachycardia and leukocytosis as well as elevated lactic acid. Patient had normal respiration and was afebrile. Status: Acute (6) Septic shock: Status: Resolved (7) Hypokalemia: Present admission Status: Acute (8) Liver enzyme elevation: Status: Acute (9) Rhabdomyolysis: Status: Acute (10) Shock liver: Status: Acute (11) Acute anemia: GI bleed cannot be ruled out Status: Acute Additional A&P Information PLAN: Awaiting cultures from a MICHELLE drain. Will repeat blood cultures and check inflammatory markers. Will hold off on IV fluids at this point and monitor and use as needed blood pressure medications. Continue Lasix twice daily for now with monitoring of urinary output. I think with diuresis we can extubate patient tomorrow unless patient is taken to surgery. Did not have a chance to talk to Dr. Reyes this morning. Attestations Medical Necessity Statement*: Patient with sepsis and bowel perforation requires close ICU monitoring and treatment as she continues to have increasing white blood cell count and requires source control. Critical Care Time: Critical Care Time (min): 40 Procedures Arterial Line Size (Gauge): 20 Coding Level of Care Code Acute Editing Computer Publisher for Chg Fwd Diagnoses Bowel perforation K63.1 Acute kidney injury N17.9 Generalized anxiety disorder F41.1 Dehydration with hyponatremia E86.0; E87.1 Severe sepsis with acute organ dysfunction due to Gram negative bacteria A41.50; R65.20 Septic shock A41.9; R65.21 Hypokalemia E87.6 Liver enzyme elevation R74.8 Rhabdomyolysis M62.82 Shock liver K72.00 Acute anemia D64.9
[2020-04-20 10:25] LABS: C Reactive Protein 100.4 mg/L (0.0-4.9)
[2020-04-20] MEDS: magnesium sulfate premix 4 GM/100 ML PREMIX IV (10:29)
[2020-04-20 10:34] LABS: ABG PCO2 39.4 mmHg (35-45); ABG PH Result 7.38 (7.35-7.45); Arterial Blood Gas Hematocrit 25.4 % (37-47); Blood Gas Sample Type Arterial; Carboxyhemoglobin 1.3 %THgb (0.4-20.1); HGB O2 Sat 97.6 % (95-100); Ionized Calcium Level - ABG 1.2 mmol/L (1.1-1.4); Oxygen Saturation ABG 99.8; Potassium Level - ABG 3.9 mmol/L (3.5-5.0); Total Hemoglobin 8.3 g/dL (12-16)
[2020-04-20 10:35] LABS: Alveolar-Arterial Oxygen Gradi 64.2 mmHg (5-10); Blood Gas Operator Identificat GD; Blood Gas Sample Site Not specified; Oxygen Device VENT
[2020-04-20 10:52] LABS: Apprearance, Bronch Wash Cloudy (CLEAR); Color, Bronc Wash Amber
[2020-04-20 10:53] LABS: Bronch Source Right and Left Lobes; PATH Referral Yes
[2020-04-20] MEDS: propofol 1,000 MG/100 ML INJ 9.3 MG IV (11:00)
[2020-04-20 11:07] LABS: Erythrocyte Sedimentation Rate 43 mm/hr (0-15)
--- NOTE | 2020-04-20 11:28 | P.OP_ITS ---
Operative Report Date of procedure: April 20, 2020 Procedure: Pre-Operative Diagnosis: Pneumonia Post-Operative Diagnosis: Same Indication: Obtain BAL samples for patient with persistent leukocytosis on antibiotics with newly developed bilateral infiltrates on imaging postoperatively Anesthesia: General anesthesia with etomidate, fentanyl, intubated as per anesthesia Pre-procedure Evaluation: Patient was evaluated clinically and ancillary testing reviewed. The risk of having active MTB infection is very low in my clinical judgement. ASA: Malampati score: unable to evaluate due to presence of endotracheal tube Consent: Consents were obtained from patient/MPOA Procedure Details: Time out was performed by the procedure team and nursing staff. Vent support maintained on Fio2 100. The bronchoscope was introduced through the ETT. A bronchoscopic airway exam was performed to evaluate the visible tracheobronchial tree to the segmental level. The right bronchial tree was assessed to include the right mainstem bronchus, RBI, and RUL/RML/RLL bronchi to the segmental level. The left bronchial tree was assessed to include the left mainstem bronchus, BOBBY, Lingula, and LLL bronchi to the segmental level. The bronchoscope was then removed and the procedure terminated. Summary of Significant Findings: -Trachea: Normal mucosa -Main Claire: Sharp -Right bronchial tree: Normal mucosa and no endobronchial lesions noted with scant secretions -Left bronchial tree:Normal mucosa and no endobronchial lesions noted with scant secretions Estimated Blood Loss: 0 mL Specimens: BAL collected from right middle lobe and left lower lobe Complications: None patient tolerated the procedure well Disposition: ICU and will wean her off ventilator tomorrow morning Patient tolerated the procedure well. Gucci Mcneal MD Pulmonary critical Care Medicine [facility] Pre-op Diagnosis: Perforated viscus
--- NOTE | 2020-04-20 12:00 | ANE.PACU2 ---
Inpatient post-anesthesia follow up: Airway intact: No Vital signs: Temperature 99.6 F Pulse Rate [Monito r] 101 Pulse Rate 96 Respiratory Rate 27 Blood Pressure [Ri ght Arm] 92/65 Blood Pressure 113/75 Pulse Oximetry 96 Oxygen Delivery Me thod BiPAP Oxygen Flow Rate 100 Fraction of Inspir ed Oxygen 80 Hydration adequate: Yes Nausea and vomiting: No Pain level: 1 Mental status: Altered Additional Comments: Intubated and sedated
--- NOTE | 2020-04-20 12:08 | PC.OT ---
Pt returned from procedure and is now sedated on vent. Nursing requested to withhold OT services for today. Plan to resume OT services in the a.m. as tolerated by pt.
--- NOTE | 2020-04-20 12:19 | PC.NURSE ---
MD mabry. Continue monitoring Vent settings while intubated on 04/20. New order is if PAP increases more than 30, or if RR increases more than 35, completion of an X-Ray is to be done. Dressing change completed. Saline soaked kerlex packed gently into abdominal cavity. ABD's placed over incisions/openings and taped. TPN ordered in addition to Tube Feedings.
[2020-04-20] MEDS: vancomycin 1,000 MG in sodium chloride 0.9% 250 ML 250 MG IV (12:50)
--- NOTE | 2020-04-20 12:56 | PC.NUTR ---
NUTR TPN RECOMMENDATIONS: Suggest TPN via Central line with goal rate of 60 ml/hr providing 1469 kcal (94%), 61 g PRO (98%)(%NEEDS). Suggest starting TPN at 30 ml/hr and increase by 10 mlQ8H as tolerated till goal rate is met. Suggest standard vitamins in solution. Fluids per physician.
[2020-04-20 13:42] LABS: Total Cells Counted Bronch 201
[2020-04-20] MEDS: propofol 1,000 MG/100 ML INJ 9.7 MG IV (15:53)
--- NOTE | 2020-04-20 17:07 | PM.PN ---
Subjective Subjective: Interval history: had bronchoscopy today, remains intubated post procedure Medications: Reviewed: Yes Vitals/I&O/Wt Last Vital Signs Temp 99.9 F H 04/20/20 16:00 Pulse 99 04/20/20 16:00 Resp 17 04/20/20 15:07 BP 115/65 04/20/20 16:00 Pulse Ox 96 04/20/20 16:00 04/20/20 04/20/20 04/20/20 06:59 14:59 22:59 Intake Total 200 / 2698.750 1070 / 1070 595.415 / 1665.415 Output Total 1070 / 4100 1650 / 1650 Balance -870 / -1401.250 -580 / -580 595.415 / 15.415 Physical Exam Urinary Catheter Management^: Romano: Cath Placed During This Visit: yes, but has since been removed by the nurse Reason for Continuing Indwelling Catheter: Accurate Measurement of Urinary Output in Critically Ill Patients Urinary Catheter Date of Insertion: 04/19/20 Urinary Catheter Time of Insertion: 08:51 Date Urinary Catheter Removed: 04/19/20 Time Urinary Catheter Discontinued: 08:28 Data : 04/20/20 04:13 04/20/20 04:13 Other Labs: 7.38/39/169 on 70% CK 954 Micro: Microbiology 04/20/20 10:26 Blood Culture - Preliminary Blood SPECIMEN COLLECTED 04/20/20 10:05 Gram Stain - Final Other Source 04/20/20 08:51 Gram Stain - Final Lung Left Lower Lobe - #1 04/20/20 10:18 Blood Culture - Preliminary Blood SPECIMEN COLLECTED 04/20/20 09:20 Gram Stain - Final Sputum - Endotracheal Tube Aspirate Other data: CXR 1. Findings stated above are consistent with congestive heart failure. 2. Bilateral hazy pulmonary opacities are nonspecific and may represent pulmonary edema. Pneumonia cannot be excluded. A&P Additional A&P Information (1) Acute kidney injury, nonoliguric, BUN, CR falling. CT abdomen showed residual contrast in kidneys suggesting JASPER. (2) Pulmonary edema (3) Hypervolemic hypernatremia (4) Rhabdomyolysis: much better, CK continues to fall (5) Sepsis due to bowel perforation (6) Acute anemia: Follow hb, transfuse as needed Recommend: Agree with IV lasix to diurese. Change IVF to D5W. Follow vancomycin levels. Attestations Medical Necessity Statement*: critically ill on ventilator Procedures Arterial Line Size (Gauge): 20 Coding Level of Care Code Acute Mobile Home Installer for Pretty Waggoner
[2020-04-20] MEDS: enoxaparin 40 mg/0.4 mL Syringe SUBCUT (17:25)
[2020-04-20] MEDS: levofloxacin-dextrose 5% 750 mg-150 mL Premix 100 MG IV (17:26)
--- NOTE | 2020-04-20 19:07 | PC.NURSE ---
Report given to warehouse shift supervisor RN. Patient remains intubated after scheduled Bronch in OR this AM. 1950 output throughout shift after lasix admin. Pain and sedation medications running. TPN and tube feedings running Art line to the left radial wrist. Central line to left subclav. New IV insertion to left forearm. TPN and tube feedings running.
--- NOTE | 2020-04-20 19:19 | PC.NURSE ---
SPOKE WITH DR KEMP REGARDING IVF & CHANGE IN VS. NEW ORDER RECEIVED TO CHANGE SEDATION.
[2020-04-20] MEDS: hyDRALAzine 25 mg Tablet 50 MG PO (20:07)
[2020-04-20] MEDS: dextrose 5% 1,000 ML 50 ML IV (21:17)
[2020-04-20] MEDS: AA-Dex 5%-20% w/Lytes 1,000 ML with multivitamin inj 5 ML 30 ML IV (22:33)
[2020-04-21] VITALS (53 sets, daily range): BP systolic 87–168; BP diastolic 49–86; PULSE 106–122; RESP 18–33; TEMP 37.9–38.7; O2SAT 90–97
--- NOTE | 2020-04-21 00:17 | PC.NURSE ---
TPN Tpn was started on day shift at 1400, but not scanned in MAR and running at 30ml/HR. At 2200, TPN was increased to 40ML/HR.
[2020-04-21] MEDS: acetaminophen 650 mg/20.3 mL UDC PO ×3 (01:03→21:41)
[2020-04-21] MEDS: ipratropium-albuterol 3 mL Neb INHALATION ×4 (03:30→20:50)
[2020-04-21 04:12] LABS: ABG PCO2 38.2 mmHg (35-45); ABG PH Result 7.44 (7.35-7.45); Base Excess ABG 1.4 mmol/L (-2.0-2.0); Blood Gas Operator Identificat JB; Blood Gas Sample Site Not specified; Blood Gas Sample Type Arterial; Blood Gas Tidal Volume 0.45; HCO3 ABG 25.7 mmol/L (22-26); Oxygen Device VENT; PO2 ABG 74.7 mmHg (80.0-100.0)
[2020-04-21 04:33] LABS: Basophils # 0.2 10^3/uL (0.0-0.1); Basophils % 0.5 %; Eosinophils % 0.1 %; Hematocrit 28.5 % (37.0-47.0); Hemoglobin 8.7 g/dL (11.5-15.3); Lymphocytes # 3.1 10^3/uL (0.8-4.8); Lymphocytes % 8.6 %; Mean Corpuscular HGB Conc 30.5 g/dL (30.0-36.0); Mean Corpuscular Hemoglobin 29.6 pg (28.0-34.0); Mean Corpuscular Volume 96.9 fL (81-99); Mean Platelet Volume 9.2 fL (7.4-10.4); Monocytes # 2.2 10^3/uL (0.2-0.9); Monocytes % 6.1 %; Neutrophils # 23.21 10^3/uL (1.8-7.7); Neutrophils % 64.8 %; Nucleated Red Blood Cells # 0.1 /100WBC; Nucleated Red Blood Cells % 0.3 %; Platelet Count 137 10^3/cmm (130-400); Red Blood Count 2.94 10^6/uL (4.1-5.3); Red Cell Distribution Width 16.3 % (12.1-15.1)
[2020-04-21 04:55] LABS: Magnesium 1.8 mg/dL (1.7-2.3)
[2020-04-21 04:58] LABS: Alanine Aminotransferase 118 U/L (0-33); Albumin Level 3.6 g/dL (3.5-5.2); Alkaline Phosphatase 145 IU/L (35-105); Anion Gap 12.6 (5-19); Aspartate Amino Transferase 69 U/L (0-32); Blood Urea Nitrogen 55 mg/dL (6-20); Calcium 8.2 mg/dL (8.5-10.5); Carbon Dioxide 28 mmol/L (22-29); Chloride 115 mmol/L (98-107); Globulin 2.7 g/dL (1.3-4.6); Glucose 156 mg/dL (65-115); Osmolality Calculated 316 mOsm/kg (285-295); Potassium 3.6 mmol/L (3.5-5.1); Sodium 152 mmol/L (136-145); Total Bilirubin 1.1 mg/dL (0.15-1.2); Total Protein 6.3 g/dL (6.6-8.7)
[2020-04-21] MEDS: morphine 4 mg/mL SDV 1 mL 2 MG IVP (05:11)
[2020-04-21 05:20] LABS: Creatine Phosphokinase 444 U/L (26-192)
[2020-04-21 05:35] LABS: Slide Review Slide Review Perform; White Blood Count 35.8 10^3/uL (4.0-10.0)
--- NOTE | 2020-04-21 05:55 | PM.PN ---
Subjective Subjective: Interval history: Patient continues to be on mechanical ventilation requiring no pressors to support her blood pressure, propofol was switched to Versed drip. Patient undergone uneventful bronchoscopy by pulmonary service yesterday and bronchial alveolar lavage was achieved. Per pulmonary service elected to keep the patient on mechanical ventilation with the plan to extubate today. Chavo stain from drain fluid showed Gram Stain Final 04/20/20-1243 Result MANY WHITE BLOOD CELLS FEW GRAM POSITIVE RODS RARE GRAM POSITIVE COCCI IN PAIRS & CLUSTERS Patient spiked temperature yesterday one 101.5 and was given Tylenol Trending down in leukocytosis I did start the patient on TPN yesterday optimize nutrition status KUB done yesterday and showed: FINDINGS: Tubes, catheters and devices: ET tube tip positioned in the left upper quadrant in the expected location of the stomach body. There are drainage tubes in the pelvic region. Gastrointestinal tract: There are air-filled nondilated small and large bowel loops. Intraperitoneal space: Distended abdomen with possible ascites. Surgical clips overlie the left abdomen and pelvis. Bones/joints: Unremarkable. XR/XR KUB portable [id number] IMPRESSION: Distended abdomen with possible ascites. There are air-filled nondilated small and large bowel loops. Vitals/I&O/Wt Last Vital Signs Temp 100.6 F H 04/21/20 05:00 Pulse 112 H 04/21/20 05:00 Resp 21 H 04/21/20 05:26 BP 122/66 04/21/20 05:00 Pulse Ox 94 04/21/20 05:00 04/20/20 04/20/20 04/21/20 14:59 22:59 06:59 Intake Total 1070 / 1070 988.437 / 2058.437 924.300 / 2982.737 Output Total 1650 / 1650 340 / 1990 2530 / 4520 Balance -580 / -580 648.437 / 68.437 -1605.700 / -1537.263 Physical Exam Narrative: EXAM NARRATIVE: Patient is on mechanical ventilation and sedated BMI 33 Head and neck examination PERRLA no masses no cervical lymphadenopathy no jaundice Cardiac examination audible S1-S2 no murmurs no gallops no arrhythmias Chest bilateral rhonchi Abdomen nontender nondistended soft no organomegaly guarding or rigidity/no signs of peritonitis Wound beds are clean with serous due to third spacing Romano catheter in place Extremities no cyanosis no clubbing no edema Urinary Catheter Management^: Romano: Cath Placed During This Visit: yes, but has since been removed by the nurse Reason for Continuing Indwelling Catheter: Accurate Measurement of Urinary Output in Critically Ill Patients Urinary Catheter Date of Insertion: 04/19/20 Urinary Catheter Time of Insertion: 08:51 Date Urinary Catheter Removed: 04/19/20 Time Urinary Catheter Discontinued: 08:28 Data : 04/21/20 04:05 04/21/20 04:05 Micro: Microbiology 04/20/20 10:26 Blood Culture - Preliminary Blood SPECIMEN COLLECTED 04/20/20 10:05 Gram Stain - Final Other Source 04/20/20 08:51 Gram Stain - Final Lung Left Lower Lobe - #1 04/20/20 10:18 Blood Culture - Preliminary Blood SPECIMEN COLLECTED 04/20/20 09:20 Gram Stain - Final Sputum - Endotracheal Tube Aspirate A&P Assessment and plan (1) Sepsis: Continue management of patient's pulmonary condition per Dr. Mcneal, I will defer potential extubation and mechanical ventilation management to him. We will continue nephrology consultation and fluid resuscitation per Dr. Lott Continue medical management of patient's condition per Dr. Harper We will plan to DC left subclavian central line and sent for culture and place a double-lumen PICC line At this point based on the overall clinical picture I do believe that the patient is making clinical improvement yet continue to have a concern about the high trend of leukocytosis but it is trending down today, I do not see an appropriate indication for laparotomy at this point based on the overall clinical picture and improvement of kidney functions and a recent CT scan of the abdomen and pelvis that showed no abscess formation and more over the right upper quadrant drain shows ascitic fluid in the left lower shows sanguinous output without evidence of succus or stool or feculent material also the wound bed is clean. In addition the patient has been tolerating tube feeds and has been passing gas and had a bowel movement the other day. Status: Acute (2) Bowel perforation: Plan: PLAN OF CARE: CVS: Continue continuous cardiac monitoring Continue SCDs Lovenox for pharmacologic DVT prophylaxis renal friendly dose PULMONARY: Aggressive pulmonary toilet Incentive spirometer Diuretic therapy per hospitalist service We will follow on pulmonary service input GI: Once patient is extubated will increase trophic feeds accordingly yet for now we will continue TPN NUTRITION; Trophic feeds and will continue TPN RENAL: Continue monitoring kidney functions Strict I's and O's Continue electrolyte protocols for replacement including calcium potassium and magnesium INFECTIOUS DISEASE: Per hospitalist service may include broad-spectrum antifungal medication We will plan to DC left subclavian central line and send the tip for culture obtain a PICC line double lumen instead. NEUROLOGY: Sedated on mechanical ventilation MOBILITY: Continue physical therap SKIN AND WOUND: Daily wet-to-dry dressing change and packing of the abdominal wound Pain control; IV pain medication Will continue Family Updates and have case management to discuss further rehabilitation with the patient and the family coordinate with physical therapy and hospitalist services. Status: Resolved Attestations Medical Necessity Statement*: Medical necessity care is expected to cross 2 midnights and will continue ICU care Time Spent in Patient Care: (>than 50% of time spent in counselling and/or direct pt care on unit). Procedures Arterial Line Size (Gauge): 20 Coding Level of Care Code Acute Communication Center Coordinator for [facility] Fwd Diagnoses Sepsis A41.9 Bowel perforation K63.1
--- NOTE | 2020-04-21 06:13 | P.PN_ITS ---
Subjective Subjective: Interval history: Patient is intubated and sedated. She had 2500 mL urinary output. She had no bowel movement. She was getting on hypotensive side yesterday evening and propofol was switched to Versed and fentanyl. Her sodium continues to increase. Patient was started on D5W yesterday by nephrology team as patient still had residual contrast in the kidneys with myranda rn for contrast-induced nephropathy. Discussed with Dr. Reyes last evening and this morning. Dr. Villegas reports that patient's darker MICHELLE drain color is due to Surgicel. Dr. Villegas concern for possible central line infection therefore he requested it to be removed with tip to be cultured and double-lumen PICC line to be placed. Platelets are trending down and this could be an indicator of source being not controlled versus lagging behind if white blood cell count continues to improve and fevers resolve. Medications: Reviewed: Yes Vitals/I&O/Wt Last Vital Signs Temp 100.6 F H 04/21/20 05:00 Pulse 112 H 04/21/20 05:00 Resp 21 H 04/21/20 05:26 BP 122/66 04/21/20 05:00 Pulse Ox 94 04/21/20 05:00 04/20/20 04/20/20 04/21/20 14:59 22:59 06:59 Intake Total 1070 / 1070 988.437 / 2058.437 924.300 / 2982.737 Output Total 1650 / 1650 340 / 1990 2530 / 4520 Balance -580 / -580 648.437 / 68.437 -1605.700 / -1537.263 Physical Exam Const: OTHER: Not in any distress. Resp: OTHER: Coarse mechanical ventilation sounds throughout. Cardio: COMMON NORMALS: regular rate, regular rhythm and S2 normal heart sound present RATE: regular rate RHYTHM: regular rhythm HEART SOUNDS: S2 normal heart sound present OTHER: No lower extremity edema GI: COMMON NORMALS: Soft to palpation PALPATION: Yes Soft to palpation OTHER: Abdominal incision dressed. No bowel sounds appreciated. Slightly distended. Binder is applied. Neuro: COMMON NORMALS: no focal motor deficits OTHER: Intubated and sedated. Urinary Catheter Management^: Romano: Cath Placed During This Visit: yes, but has since been removed by the nurse Reason for Continuing Indwelling Catheter: Accurate Measurement of Urinary Output in Critically Ill Patients Urinary Catheter Date of Insertion: 04/19/20 Urinary Catheter Time of Insertion: 08:51 Date Urinary Catheter Removed: 04/19/20 Time Urinary Catheter Discontinued: 08:28 Data : 04/21/20 04:05 04/21/20 04:05 Micro: Microbiology 04/20/20 10:26 Blood Culture - Preliminary Blood SPECIMEN COLLECTED 04/20/20 10:05 Gram Stain - Final Other Source 04/20/20 08:51 Gram Stain - Final Lung Left Lower Lobe - #1 04/20/20 10:18 Blood Culture - Preliminary Blood SPECIMEN COLLECTED 04/20/20 09:20 Gram Stain - Final Sputum - Endotracheal Tube Aspirate A&P Assessment and plan (1) Bowel perforation: Status: Resolved (2) Acute kidney injury: Prerenal initially and now appears to be renal. Acute tubular necrosis with multiple etiologies including rhabdomyolysis and hypotension Status: Acute (3) Generalized anxiety disorder: Status: Chronic (4) Dehydration with hyponatremia: Status: Acute (5) Severe sepsis with acute organ dysfunction due to Gram negative bacteria: As exhibited by tachycardia and leukocytosis as well as elevated lactic acid. Patient had normal respiration and was afebrile. Status: Acute (6) Septic shock: Status: Resolved (7) Hypokalemia: Present admission Status: Acute (8) Liver enzyme elevation: Status: Acute (9) Rhabdomyolysis: Status: Acute (10) Shock liver: Status: Acute (11) Acute anemia: GI bleed cannot be ruled out Status: Acute Additional A&P Information PLAN: Awaiting cultures from a MICHELLE drain. Continue monitoring. Abdominal washout to control source to be considered by Dr. Reyes if patient is not improving. Will stop Lasix as patient continues to be hypernatremic. Consider hydrochlorothiazide and continue D5W. Patient was started on TPN and if not extubated today tube feeds could be continued Attestations Medical Necessity Statement*: Patient is ill post bowel perforation and curre ntly intubated requiring close ICU monitoring and treatment Time Spent in Patient Care: 16 - 35 minutes Procedures Arterial Line Size (Gauge): 20 Coding Level of Care Code Acute Clinical Education Manager for [facility] Fwd Diagnoses Bowel perforation K63.1 Acute kidney injury N17.9 Generalized anxiety disorder F41.1 Dehydration with hyponatremia E86.0; E87.1 Severe sepsis with acute organ dysfunction due to Gram negative bacteria A41.50; R65.20 Septic shock A41.9; R65.21 Hypokalemia E87.6 Liver enzyme elevation R74.8 Rhabdomyolysis M62.82 Shock liver K72.00 Acute anemia D64.9
[2020-04-21] MEDS: vancomycin 1,000 MG in sodium chloride 0.9% 250 ML 250 MG IV (07:00)
--- NOTE | 2020-04-21 08:39 | XR_ITS ---
WS: [id number] CHEST XRAY TECHNIQUE: Portable chest. CLINICAL INFORMATION: picc line placement. will call when line is in. COMPARISON: None. FINDINGS: Right PICC line tip difficult to visualize but appears to be in the distal SVC. No pneumoth orax. Endotracheal tube with tip 3.6 cm above the edwar. Left central venous catheter with tip in th e proximal SVC. Enteric tube with tip below the diaphragm. Heart: Cardiomegaly. Lungs: Bilateral hazy pulmonary infiltrates suspicious for pneumonia. No pleural fluid. Bones: Normal visualized bony structures. XR/XR chest 1V portable [id number] IMPRESSION: 1. Right PICC line with tip in the distal SVC. No pneumothorax. 2. No other changes from previous.
[2020-04-21] MEDS: pantoprazole 40 mg SDV IVP (09:42)
[2020-04-21] MEDS: hyDRALAzine 25 mg Tablet 50 MG PO ×4 (09:42→20:34)
[2020-04-21] MEDS: budesonide 0.5 mg/2 mL Neb INHALATION ×2 (09:56→20:50)
--- NOTE | 2020-04-21 11:00 | PC.SOCIAL ---
IMM Updated Page 2 of IMM updated and given to patient. Initialed, dated, and timed and placed back in chart.
--- NOTE | 2020-04-21 12:55 | PC.OT ---
OT note: Discussed with RN and will hold at this time as they are working on weaning trial. Will attempt again later as able.
--- NOTE | 2020-04-21 13:32 | PC.NURSE ---
all sedation off. very restless. r.r. mid to upper thirties. did squeeze my hand at one point, but not now.
--- NOTE | 2020-04-21 15:01 | PM.PN ---
Subjective Subjective: Interval history: remains on ventilator, plan to try extubation later febrile, central line removed, pic placed today Medications: Reviewed: Yes Vitals/I&O/Wt Last Vital Signs Temp 101.7 F H 04/21/20 11:00 Pulse 122 H 04/21/20 14:25 Resp 30 H 04/21/20 14:22 BP 142/81 04/21/20 13:00 Pulse Ox 94 04/21/20 14:22 04/21/20 04/21/20 04/21/20 06:59 14:59 22:59 Intake Total 924.300 / 2982.737 333.200 / 333.200 Output Total 2530 / 4520 350 / 350 Balance -1605.700 / -1537.263 -16.800 / -16.800 Physical Exam Urinary Catheter Management^: Romano: Cath Placed During This Visit: yes, but has since been removed by the nurse Reason for Continuing Indwelling Catheter: Required Immobilization for Trauma or Surgery or Anesthesia Urinary Catheter Date of Insertion: 04/19/20 Urinary Catheter Time of Insertion: 08:51 Date Urinary Catheter Removed: 04/19/20 Time Urinary Catheter Discontinued: 08:28 Data : 04/21/20 04:05 04/21/20 04:05 Other Labs: CK 444, calcium 8.2, Mg 1.8, albumin 3.6 serum sodium 152 Micro: Microbiology 04/20/20 10:26 Blood Culture - Preliminary Blood NEGATIVE TO DATE 04/20/20 10:18 Blood Culture - Preliminary Blood NEGATIVE TO DATE 04/20/20 10:05 Gram Stain - Final Other Source 04/20/20 08:51 Gram Stain - Final Lung Left Lower Lobe - #1 04/20/20 09:20 Gram Stain - Final Sputum - Endotracheal Tube Aspirate CXR: My impression: bibateral hazy infiltrates Radiologist's impression: bilateral hazy infiltrates A&P Additional A&P Information (1) Acute kidney injury, nonoliguric, BUN, CR falling. CT abdomen showed residual contrast in kidneys suggesting JASPER. Excellent urine output in response to furosemide (2) Hypervolemic hypernatremia, serum sodium higher. Receiving IV D5W at 50 ml/min, reduce sodium in TPN, place other meds in D5W if compatible, will add water flushes via feeding tube (3) Rhabdomyolysis: much better, CK continues to fall (4) Sepsis due to bowel perforation, fever today, lines changed, cultures drawn (5) Acute anemia: Follow hb, transfuse as needed Attestations Medical Necessity Statement*: critically ill Time Spent in Patient Care: Greater than 35 minutes Procedures Arterial Line Size (Gauge): 20 Coding Level of Care Code Acute Professor Of Political Science for Pretty Waggoner
[2020-04-21] MEDS: dextrose 5% 1,000 ML 50 ML IV (15:08)
[2020-04-21] MEDS: AA-Dex 5%-20% w/Lytes 1,000 ML with multivitamin inj 5 ML 60 ML IV (15:54)
--- NOTE | 2020-04-21 15:55 | PC.NURSE ---
remains restless, but not as much as before. dressing change done using kerlix and abds.
[2020-04-21] MEDS: levofloxacin-dextrose 5% 750 mg-150 mL Premix 100 MG IV (16:48)
[2020-04-21] MEDS: enoxaparin 40 mg/0.4 mL Syringe SUBCUT (18:36)
--- NOTE | 2020-04-21 20:42 | P.PN_ITS ---
Subjective Subjective: Interval history: Patient still remains on ventilator, sedated/. Plan is to do reduce Sedation, do spontaneous awakening trial and put her on weaning trial. ABG on 50% FiO2 7.4 // 5/99% Spiking fevers, WBC trending down, on imipenem, levofloxacin, vancomycin - sub clavian line removed and PICC line placed Awaiting final cultures Medications: Reviewed: Yes Vitals/I&O/Wt Last Vital Signs Temp 100.2 F H 04/21/20 19:00 Pulse 113 H 04/21/20 19:00 Resp 22 H 04/21/20 19:00 BP 136/68 04/21/20 19:00 Pulse Ox 95 04/21/20 19:00 04/21/20 04/21/20 04/21/20 06:59 14:59 22:59 Intake Total 924.300 / 2982.737 333.200 / 751.836 3269.033 / 2404.233 Output Total 2530 / 4520 735 / 735 Balance -1605.700 / -1537.263 -401.800 / -074.447 9128.033 / 1669.233 Physical Exam Narrative: EXAM NARRATIVE: PHYSICAL EXAM: General: lying in bed, sedated and intubated. HEENT:NCAT, PERRLA, EOMI Neck: Supple Lungs: Clear, Heart: s1/s2, RRR Abd: soft, Abdominal binder in place, distended BS +But reduced Extremities: No edema SURVEY RESEARCH ASSOCIATE: sedated and limited SURVEY RESEARCH ASSOCIATE exam possible. SKIN: no rash Urinary Catheter Management^: Romano: Cath Placed During This Visit: yes, but has since been removed by the nurse Reason for Continuing Indwelling Catheter: Required Immobilization for Trauma or Surgery or Anesthesia Urinary Catheter Date of Insertion: 04/19/20 Urinary Catheter Time of Insertion: 08:51 Date Urinary Catheter Removed: 04/19/20 Time Urinary Catheter Discontinued: 08:28 Data : 04/21/20 04:05 04/21/20 04:05 Micro: Microbiology 04/20/20 09:20 Gram Stain - Final Sputum - Endotracheal Tube Aspirate Sputum Culture - Preliminary 04/20/20 10:05 Gram Stain - Final Other Source Body Fluid Culture - Preliminary 04/20/20 08:51 Gram Stain - Final Lung Left Lower Lobe - #1 Bronchial Washings Culture - Preliminary 04/20/20 10:26 Blood Culture - Preliminary Blood NEGATIVE TO DATE 04/20/20 10:18 Blood Culture - Preliminary Blood NEGATIVE TO DATE A&P Assessment and plan (1) Leukocytosis, unspecified: Status: Acute Qualifiers: Leukocytosis type: leukemoid reaction Qualified Code(s): D72.823 - Leukemoid reaction (2) Bilateral pulmonary infiltrates on chest x-ray: Status: Acute (3) Pneumonia: Status: Acute Qualifiers: Pneumonia type: due to unspecified organism Laterality: bilateral Lung location: lower lobe of lung Qualified Code(s): J18.9 - Pneumonia, unspecified organism (4) COPD (chronic obstructive pulmonary disease): Status: Acute Qualifiers: COPD type: unspecified COPD Qualified Code(s): J44.9 - Chronic obstructive pulmonary disease, unspecified (5) Smoker: Status: Acute #Persistent leukocytosis and fevers in pt s/p exploratory laparotomy POD#7 #Consulted to rule out postop pneumonia versus aspiration pneumonia due to vomiting - Status post bronchoscopy 04/20/2020 #IRMA likely due to contrast inudced nephropathy vs ongoing sepsis. -Imaging Showed bilateral atelectasis vs bibasilar infiltrates due to ineffective spirometry and presence of abdominal pain due to-recent surgery -Primary attending consulted for bronchoscopy to rule out pneumonia on POD # 5 -Bronchoscopy on 04/20/20: clear airways with scant clear secretions -BAL samples sent for cultures - awaiting results. -Intubated during bronchoscopy as patient was requiring 10 L of oxygen and saturating 91-92 -Currently on VC tidal volume- ABG on 50% FiO2 7.4 //20 5/99% - will continue weaning trial tomorrow am and try to extubate - Spiking fevers, WBC trending down, on imipenem, levofloxacin, vancomycin - subclavian line removed and PICC line placed - Small deep pelvic collection on CT abdomen pelvis still present-surgery to follow-up - Awaiting final cultures - Recommended to add antifungal coverage after sending for fungal cultures - preferably micafungin as pt has risk factors for fungemia - On TPN, Perforated bowel. - Renal to follow up regarding IRMA - improving renal parameters - monitor I & O and try to keep negative balance to facilitate extubation - Hypernatremia - iv d50 mls/hr and agree with renal to reduced Na in TPN and change carrier fluids to D5 if possible. #COPD #Chronic current smoker-1 pack/day for more than 30 years -Need PFTs as outpatient -told never used any inhalers before intubation -Continue DuoNeb nebulizations every 6 hour scheduled Medical condition, labs, investigations, medications, counseling regarding medication compliance, side effects, importance of follow-up appointments, smoking-its adverse effects and importance of cessation and plan of care- everything explained in detail to the patient. Patient verbalized understanding and agreed with the plan of care. Recommendations conveyed to Dr. Donahue and Dr. Harper Attestations Medical Necessity Statement*: Acute hypoxic respiratory failure requiring intubation s/p bronchoscopy in pt with ongoing sepsis with ??pneumonia s/p ex laparotomy Time Spent in Patient Care: 16 - 35 minutes (>than 50% of time spent in counselling and/or direct pt care on unit) . Procedures Arterial Line Size (Gauge): 20 Coding Level of Care Code Acute Test Engineering Intern for g Fwd Diagnoses Leukocytosis, unspecified D72.823 Leukocytosis type: leukemoid reaction Bilateral pulmonary infiltrates on chest x-ray R91.8 Pneumonia J18.9 Pneumonia type: due to unspecified organism Laterality: bilateral Lung location: lower lobe of lung COPD (chronic obstructive pulmonary disease) J44.9 COPD type: unspecified COPD Smoker F17.200
[2020-04-22] VITALS (63 sets, daily range): BP systolic 102–154; BP diastolic 48–81; PULSE 66–116; RESP 14–30; TEMP 37.7–39.4; O2SAT 90–99
[2020-04-22] MEDS: vancomycin 1,000 MG in sodium chloride 0.9% 250 ML 250 MG IV (00:24)
[2020-04-22] MEDS: ipratropium-albuterol 3 mL Neb INHALATION ×4 (02:03→20:12)
[2020-04-22 05:32] LABS: ABG PCO2 35.3 mmHg (35-45); ABG PH Result 7.39 (7.35-7.45); Arterial Blood Gas Hematocrit 25.5 % (37-47); Base Excess ABG -3.3 mmol/L (-2.0-2.0); Blood Gas Sample Type Arterial; HCO3 ABG 21.2 mmol/L (22-26); PO2 ABG 60.1 mmHg (80.0-100.0)
[2020-04-22 05:33] LABS: Blood Gas Sample Site Not specified; Blood Gas Tidal Volume 0.45; Oxygen Device VENT
--- NOTE | 2020-04-22 05:38 | P.PN_ITS ---
Subjective Subjective: Interval history: Patient continues to be on mechanical ventilation and sedated. Attempt for extubation yesterday was not successful as patient did not meet criteria. Antifungal medication was started yesterday by me as a broad-spectrum after in-depth discussion with pharmacy to dose and adjustment with correlation with monitoring closely patient's liver function tests. Left subclavian central line was pulled out after PICC line being inserted and the tip was sent for culture. Dr. Harper and I discussed yesterday about the potential of the persistent leukocytosis could be a leukemoid reaction versus leukemia particularly that the patient had a resolving picture of sepsis and recent CT scan of the abdomen and pelvis did not show any abscess formation. The other potential explanation would be her underlying pneumonitis. Ms. Hansen patient's sister and Loulou patient's daughter were updated yesterday about the overall clinical condition and the potential longer staying on mechanical ventilation. Also a CT scan of the chest abdomen and pelvis with potential IV contrast has been discussed with Loulou patient's younger daughter and with the potential drawbacks on patient's kidney functions particularly that the patient has been recovering from recent contrast nephropathy per nephrology evaluation. No bowel movement reported yet. Patient has been started on 200 mL of free water 4 times daily to help with the hypernatremia. Patient continues to show fevers and more cultures were sent yesterday Vitals/I&O/Wt Last Vital Signs Temp 101.1 F H 04/22/20 02:00 Pulse 106 H 04/22/20 02:03 Resp 19 H 04/22/20 03:55 BP 144/69 04/22/20 02:00 Pulse Ox 97 04/22/20 02:03 04/21/20 04/21/20 04/22/20 14:59 22:59 06:59 Intake Total 333.200 / 217.732 5715.033 / 2404.233 Output Total 735 / 735 Balance -401.800 / -987.032 9193.033 / 1669.233 Physical Exam Narrative: EXAM NARRATIVE: Patient is on mechanical ventilation and sedated BMI 33 Head and neck examination PERRLA no masses no cervical lymphadenopathy no jaundice Cardiac examination audible S1-S2 no murmurs no gallops no arrhythmias Chest bilateral rhonchi Abdomen nontender moderately distended soft no organomegaly guarding or rigidi ty/no signs of peritonitis Wound beds are clean with serous fluid due to third spacing, dressing was done bedside involving packing with dry to dry followed by ABDs. Right upper abdominal drain shows serous output and left lower abdominal drain shows sanguinous output Romano catheter in place Extremities no cyanosis no clubbing no edema Urinary Catheter Management^: Romano: Cath Placed During This Visit: yes, but has since been removed by the nurse Reason for Continuing Indwelling Catheter: Required Immobilization for Trauma or Surgery or Anesthesia Urinary Catheter Date of Insertion: 04/19/20 Urinary Catheter Time of Insertion: 08:51 Date Urinary Catheter Removed: 04/19/20 Time Urinary Catheter Discontinued: 08:28 Data : 04/21/20 04:05 04/22/20 04:50 Micro: Microbiology 04/20/20 09:20 Gram Stain - Final Sputum - Endotracheal Tube Aspirate Sputum Culture - Preliminary 04/20/20 10:05 Gram Stain - Final Other Source Body Fluid Culture - Preliminary 04/20/20 08:51 Gram Stain - Final Lung Left Lower Lobe - #1 Bronchial Washings Culture - Preliminary 04/20/20 10:26 Blood Culture - Preliminary Blood NEGATIVE TO DATE 04/20/20 10:18 Blood Culture - Preliminary Blood NEGATIVE TO DATE A&P Assessment and plan (1) Sepsis: Will consider CT scan of the chest abdomen pelvis today with oral contrast due to the spiking of fevers.I will defer the IV contrast need with coordination with nephrology service and family updates with that regard as patient may go into renal compromise that may require dialysis. We will follow on cultures and sensitivities We will order lactic acid stat Status: Acute (2) Bowel perforation: Plan: PLAN OF CARE: CVS: Continue continuous cardiac monitoring Continue SCDs Lovenox for pharmacologic DVT prophylaxis renal friendly dose PULMONARY: Aggressive pulmonary toilet Diuretic therapy per hospitalist service We will follow on pulmonary service input May consider tracheostomy if patient continues to be on mechanical ventilation for longer time. GI: Once patient is extubated will increase trophic feeds accordingly yet for now we will continue TPN NUTRITION; Trophic feeds at 20 and will continue TPN RENAL: Continue monitoring kidney functions Strict I's and O's Continue electrolyte protocols for replacement including calcium potassium and magnesium INFECTIOUS DISEASE: We will continue current antimicrobial and antifungal therapy and narrowed according to the cultures and sensitivities NEUROLOGY: Sedated on mechanical ventilation MOBILITY: Continue physical therapy SKIN AND WOUND: Daily Dry-to-dry dressing change and packing of the abdominal wound Pain control; IV pain medication Will continue Family Updates and have case management to discuss further rehabilitation with the patient and the family coordinate with physical therapy and hospitalist services. Status: Resolved Attestations Medical Necessity Statement*: Medical necessity care is expected to cross 2 midnights requiring continue ICU care Time Spent in Patient Care: (>than 50% of time spent in counselling and/or direct pt care on unit) . Procedures Arterial Line Size (Gauge): 20 Coding Level of Care Code Acute Histology Specialist for [facility] [employer] [facility] [employer] Fwd Diagnoses Sepsis A41.9 Bowel perforation K63.1
[2020-04-22 05:41] LABS: Basophils # 0.1 10^3/uL (0.0-0.1); Basophils % 0.2 %; Eosinophils % 0.1 %; Hematocrit 25.4 % (37.0-47.0); Hemoglobin 7.4 g/dL (11.5-15.3); Lymphocytes # 2.4 10^3/uL (0.8-4.8); Lymphocytes % 7.2 %; Mean Corpuscular HGB Conc 29.1 g/dL (30.0-36.0); Mean Corpuscular Hemoglobin 29.2 pg (28.0-34.0); Mean Corpuscular Volume 100.4 fL (81-99); Mean Platelet Volume 9.4 fL (7.4-10.4); Monocytes # 1.7 10^3/uL (0.2-0.9); Monocytes % 5.2 %; Neutrophils # 25.03 10^3/uL (1.8-7.7); Neutrophils % 76.5 %; Nucleated Red Blood Cells % 0.1 %; Platelet Count 124 10^3/cmm (130-400); Red Blood Count 2.53 10^6/uL (4.1-5.3); Red Cell Distribution Width 16.7 % (12.1-15.1)
[2020-04-22 06:11] LABS: Alanine Aminotransferase 78 U/L (0-33); Albumin Level 3.1 g/dL (3.5-5.2); Alkaline Phosphatase 133 IU/L (35-105); Anion Gap 11.4 (5-19); Aspartate Amino Transferase 51 U/L (0-32); Blood Urea Nitrogen 36 mg/dL (6-20); Calcium 7.8 mg/dL (8.5-10.5); Carbon Dioxide 27 mmol/L (22-29); Chloride 118 mmol/L (98-107); Creatine Phosphokinase 212 U/L (26-192); Globulin 2.8 g/dL (1.3-4.6); Glucose 186 mg/dL (65-115); Magnesium 1.4 mg/dL (1.7-2.3); Osmolality Calculated 318 mOsm/kg (285-295); Potassium 3.4 mmol/L (3.5-5.1); Sodium 153 mmol/L (136-145); Total Bilirubin 0.7 mg/dL (0.15-1.2); Total Protein 5.9 g/dL (6.6-8.7)
[2020-04-22 06:39] LABS: Lactate (Lactic Acid level) 1.5 mmol/L (0.5-2.2)
[2020-04-22 07:10] LABS: White Blood Count 32.7 10^3/uL (4.0-10.0)
[2020-04-22 07:11] LABS: Slide Review Slide Review Perform
--- NOTE | 2020-04-22 08:04 | CT_ITS ---
WS: [id number] CT CHEST, ABDOMEN, AND PELVIS TECHNIQUE: Noncontrast CT of the chest, abdomen, and pelvis with coronal and sagittal reformatted thomas ges. CLINICAL INFORMATION: Persistent leukocytosis and fevers status post exploratory laparotomy COMPARISON: CT abdomen pelvis April 18, 2020 DLP: 2477.[address] scans at [facility] use at least one of these dose optimization techniques: automat ed exposure control; mA and/or kV adjustment per patient size (includes targeted exams where dose is matched to clinical indication); or iterative reconstruction. CT CHEST: Diffuse hazy groundglass infiltrates throughout both lungs. Tiny bilateral pleural effusions with com pressive atelectasis in the lung bases. Recommend correlation for pneumonia. Endotracheal tube with t ip above the edwar. Enteric tube with tip in the stomach. No mediastinal or hilar lymphadenopathy. N o axillary lymphadenopathy. CT ABDOMEN AND PELVIS: Postoperative changes recent laparotomy with abdominal wall incision. Slightly cirrhotic configuratio n to the liver. Noncontrast liver is otherwise unremarkable. Normal noncontrast spleen. Noncontrast p ancreas is unremarkable. Diffuse body wall anasarca and mesenteric edema. Normal caliber abdominal ao rta. Adrenal glands are normal. No hydronephrosis in either kidney. Romano catheter in place. Abdomina l drains along the right lower quadrant and in the lower pelvis. No evidence of new or progressed drainable fluid collection or abscess in the abdomen or pelvis. Agai n seen are findings of adynamic ileus with air-fluid levels in small bowel and transverse colon. This is similar in appearance to the prior examination. Mild bowel bowel thickening in the left midabdome n and pelvis also similar in appearance. No free air. Moderate thoracic kyphosis. Lumbar curve. CT/CT chest abd pel wo con IMPRESSION: 1. Diffuse hazy groundglass infiltrates throughout both lungs in a perihilar d istribution suspicious for pneumonitis including viral pneumonia. Trace pleural fluid with compressive atelectasis in the lung bases. 2. Postoperative changes laparotomy with open anterior abdominal wall incision . 3. Diffuse body wall anasarca and mesenteric edema slightly improved from prev ious. 4. No evidence of new drainable fluid collection or abscess in the abdomen or pelvis. Stable surgical drains. 5. Again seen are findings of adynamic ileus with air-fluid levels in slightly distended loops of small and large bowel with persistent air in the colon. No evidence of high-grade obstruction. 6. Romano catheter in place. 7. Enteric tube in the stomach.
[2020-04-22] MEDS: budesonide 0.5 mg/2 mL Neb INHALATION ×2 (08:23→20:12)
[2020-04-22 08:31] LABS: Procalcitonin 0.67 ng/mL (0-0.5)
[2020-04-22] MEDS: pantoprazole 40 mg SDV IVP (09:07)
[2020-04-22] MEDS: magnesium sulfate premix 4 GM/100 ML PREMIX IV (09:08)
[2020-04-22] MEDS: AA-Dex 5%-20% w/Lytes 1,000 ML with multivitamin inj 5 ML 60 ML IV (09:10)
--- NOTE | 2020-04-22 09:40 | PM.PN ---
Subjective Subjective: Interval history: clinically decompensated today, febrile, back on pressors, higher O2 requirements Medications: Reviewed: Yes Vitals/I&O/Wt Last Vital Signs Temp 101.1 F H 04/22/20 07:00 Pulse 112 H 04/22/20 08:30 Resp 14 04/22/20 08:25 BP 119/48 04/22/20 07:34 Pulse Ox 97 04/22/20 08:25 04/21/20 04/22/20 04/22/20 22:59 06:59 14:59 Intake Total 2171.033 / 2504.233 482 / 2986.233 Output Total 1540 / 2275 Balance 2171.033 / 1769.233 -1058 / 711.233 Physical Exam Urinary Catheter Management^: Romano: Cath Placed During This Visit: yes, but has since been removed by the nurse Reason for Continuing Indwelling Catheter: Accurate Measurement of Urinary Output in Critically Ill Patients Urinary Catheter Date of Insertion: 04/19/20 Urinary Catheter Time of Insertion: 08:51 Date Urinary Catheter Removed: 04/19/20 Time Urinary Catheter Discontinued: 08:28 Data : 04/22/20 04:50 04/22/20 04:50 Other Labs: serum sodium 153, potassium 3.4, CK 212, Mg 1.4 7.39/35/60 AC 14/45% Micro: Microbiology 04/20/20 09:20 Gram Stain - Final Sputum - Endotracheal Tube Aspirate Sputum Culture - Preliminary 04/20/20 10:05 Gram Stain - Final Other Source Body Fluid Culture - Preliminary 04/20/20 08:51 Gram Stain - Final Lung Left Lower Lobe - #1 Bronchial Washings Culture - Preliminary 04/20/20 10:26 Blood Culture - Preliminary Blood NEGATIVE TO DATE 04/20/20 10:18 Blood Culture - Preliminary Blood NEGATIVE TO DATE Other data: CXR Heart: Cardiomegaly. Lungs: Bilateral hazy pulmonary infiltrates suspicious for pneumonia. No pleural fluid. Bones: Normal visualized bony structures. CT ABD NO IV CONTRAST 1. Diffuse hazy groundglass infiltrates throughout both lungs in a perihilar distribution suspicious for pneumonitis including viral pneumonia. Trace pleural fluid with compressive atelectasis in the lung bases. 2. Postoperative changes laparotomy with open anterior abdominal wall incision. 3. Diffuse body wall anasarca and mesenteric edema slightly improved from previous. 4. No evidence of new drainable fluid collection or abscess in the abdomen or pelvis. Stable surgical drains. 5. Again seen are findings of adynamic ileus with air-fluid levels in slightly distended loops of small and large bowel with persistent air in the colon. No evidence of high-grade obstruction. 6. Romano catheter in place. 7. Enteric tube in the stomach. A&P Additional A&P Information (1) Acute kidney injury, nonoliguric, BUN, CR falling. CT abdomen showed anasarca (2) Hypervolemic hypernatremia, serum sodium higher. Receiving IV D5W at 50 ml/min. I spoke with pharmacits, almost all meds will be changed to infusion with D5W, continue water flushes via feeding tube as tolerated (3) Rhabdomyolysis: much better, CK continues to fall (4) Sepsis due to bowel perforation, fever today, lines changed, cultures drawn. Check urinalysis and culture (5) Hypokalemia, hypomagnesemia - replace Attestations Medical Necessity Statement*: critically ill in ICU Time Spent in Patient Care: Greater than 35 minutes Procedures Arterial Line Size (Gauge): 20 Coding Level of Care Code Acute Chrome Tanning Drum Operator for Chg Edilson
--- NOTE | 2020-04-22 10:17 | PC.NURSE ---
PT TO CT SCAN PER ANIA WITH RESP THERAPY & EXTRA STAFF. TOLERATED OK. TUBE FEEDS RESTARTED AFTERWARDS WITH JEVITY @20ML/HR & H20 FLUSHES 200ML [id number].
[2020-04-22] MEDS: iohexol 300 mg/mL 50 mL Btl IV (10:59)
--- NOTE | 2020-04-22 11:53 | PM.PN ---
Subjective Subjective: Interval history: Patient is intubated and sedated. She continues to be febrile. Her white blood cell count slightly improved. Hemoglobin and platelets further decline. COVID-19 and influenza test was requested as potentially other viral infection suspected. Discussed with Dr. Mcneal this morning at bedside. We will change patient's sedation from Versed/fentanyl to Precedex. Dr. Villegas requested hospitalist service to take over care for this patient as no further surgical intervention is recommended. Medications: Reviewed: Yes Vitals/I&O/Wt Last Vital Signs Temp 101.1 F H 04/22/20 07:00 Pulse 112 H 04/22/20 08:30 Resp 21 H 04/22/20 11:47 BP 119/48 04/22/20 07:34 Pulse Ox 97 04/22/20 08:25 04/21/20 04/22/20 04/22/20 22:59 06:59 14:59 Intake Total 2171.033 / 2504.233 482 / 2986.233 1005 / 1005 Output Total 1540 / 2275 Balance 2171.033 / 1769.233 -1058 / 108.883 4795 / 1005 Physical Exam Const: COMMON NORMALS: no acute distress OTHER: Not in any distress. Resp: OTHER: Intubated and sedated. Cardio: COMMON NORMALS: regular rate, regular rhythm and S2 normal heart sound present RATE: regular rate RHYTHM: regular rhythm HEART SOUNDS: S2 normal heart sound present OTHER: No lower extremity edema GI: COMMON NORMALS: Normal to inspection, nondistended, normoactive bowel sounds present, Soft to palpation and non-tender PALPATION: Yes Soft to palpation OTHER: Abdominal incision dressed. No bowel sounds appreciated. Appears slightly distended. Binder is applied. Neuro: COMMON NORMALS: no focal motor deficits OTHER: Intubated and sedated. Urinary Catheter Management^: Romano: Cath Placed During This Visit: yes, but has since been removed by the nurse Reason for Continuing Indwelling Catheter: Accurate Measurement of Urinary Output in Critically Ill Patients Urinary Catheter Date of Insertion: 04/19/20 Urinary Catheter Time of Insertion: 08:51 Date Urinary Catheter Removed: 04/19/20 Time Urinary Catheter Discontinued: 08:28 Data : 04/22/20 04:50 04/22/20 04:50 Micro: Microbiology 08/25/20 09:20 Gram Stain - Final Sputum - Endotracheal Tube Aspirate Sputum Culture - Preliminary 04/20/20 10:05 Gram Stain - Final Other Source Body Fluid Culture - Preliminary 04/20/20 08:51 Gram Stain - Final Lung Left Lower Lobe - #1 Bronchial Washings Culture - Preliminary 04/20/20 10:26 Blood Culture - Preliminary Blood NEGATIVE TO DATE 04/20/20 10:18 Blood Culture - Preliminary Blood NEGATIVE TO DATE A&P Assessment and plan (1) Bowel perforation: Status: Resolved (2) Acute kidney injury: Prerenal initially and now appears to be renal. Acute tubular necrosis with multiple etiologies including rhabdomyolysis and hypotension Status: Acute (3) Generalized anxiety disorder: Status: Chronic (4) Dehydration with hyponatremia: Status: Acute (5) Severe sepsis with acute organ dysfunction due to Gram negative bacteria: As exhibited by tachycardia and leukocytosis as well as elevated lactic acid. Patient had normal respiration and was afebrile. Status: Acute (6) Septic shock: Status: Resolved (7) Hypokalemia: Present admission Status: Acute (8) Liver enzyme elevation: Status: Acute (9) Rhabdomyolysis: Status: Acute (10) Shock liver: Status: Acute (11) Acute anemia: GI bleed cannot be ruled out Status: Acute Additional A&P Information PLAN: We will discontinue TPN and advance tube feeds as tolerated. Magnesium repleted. Discussed with pharmacy and we will readjust antibiotic dose renally as kidney function improved. Dr. Mcneal is planning to perform repeat bronchoscopy tomorrow morning. I will go ahead and empirically try steroids as there is potential for viral pneumonia including COVID-19. Attestations Medical Necessity Statement*: Patient is intubated and sedated requiring close ICU monitoring and treatment. Time Spent in Patient Care: 16 - 35 minutes Procedures Arterial Line Size (Gauge): 20 Coding Level of Care Code Acute Accountant Bookkeeper for g Fwd Diagnoses Bowel perforation K63.1 Acute kidney injury N17.9 Generalized anxiety disorder F41.1 Dehydration with hyponatremia E86.0; E87.1 Severe sepsis with acute organ dysfunction due to Gram negative bacteria A41.50; R65.20 Septic shock A41.9; R65.21 Hypokalemia E87.6 Liver enzyme elevation R74.8 Rhabdomyolysis M62.82 Shock liver K72.00 Acute anemia D64.9
[2020-04-22] MEDS: dexamethasone 10 mg/mL INJ 6 MG IVP (12:50)
--- NOTE | 2020-04-22 13:12 | PM.PN ---
Subjective Subjective: Interval history: leucocytosis trending down however pt. still spiking fevers and abg showed decreasing paO2 despite on Vancomycin and Imipenam Recent BAL Cultures 04/20/20 still not reported any growth ; However CT today 04/22/2020: showed bilateral GGOS concerning for pneumotitis especially COVID. Renal functions are improving but again got Contrast today - so monitor for bun/cr Medications: Reviewed: Yes Vitals/I&O/Wt Last Vital Signs Temp 101.1 F H 04/22/20 07:00 Pulse 112 H 04/22/20 08:30 Resp 21 H 04/22/20 11:47 BP 119/48 04/22/20 07:34 Pulse Ox 97 04/22/20 08:25 04/21/20 04/22/20 04/22/20 22:59 06:59 14:59 Intake Total 2171.033 / 2504.233 482 / 2986.233 1365 / 1365 Output Total 1540 / 2275 600 / 600 Balance 2171.033 / 1769.233 -1058 / 711.233 765 / 765 Physical Exam Narrative: EXAM NARRATIVE: PHYSICAL EXAM: General: lying in bed, sedated and intubated. HEENT:NCAT, PERRLA, EOMI Neck: Supple Lungs: Bibasilar crackles Heart: s1/s2, RRR Abd: soft, Abdominal binder in place, distended BS +But reduced Extremities: 1+ edema SPECIAL EVENTS PLANNER: sedated and limited SPECIAL EVENTS PLANNER exam possible. SKIN: no rash Urinary Catheter Management^: Romano: Cath Placed During This Visit: yes, but has since been removed by the nurse Reason for Continuing Indwelling Catheter: Accurate Measurement of Urinary Output in Critically Ill Patients Urinary Catheter Date of Insertion: 04/19/20 Urinary Catheter Time of Insertion: 08:51 Date Urinary Catheter Removed: 04/19/20 Time Urinary Catheter Discontinued: 08:28 Data : 04/22/20 04:50 04/22/20 04:50 Micro: Microbiology 04/21/20 11:10 Catheter Tip Culture - Preliminary Central Line 04/20/20 10:05 Gram Stain - Final Other Source Body Fluid Culture - Preliminary Yeast species Staphylococcus species 04/20/20 09:20 Gram Stain - Final Sputum - Endotracheal Tube Aspirate Sputum Culture - Final 04/20/20 08:51 Gram Stain - Final Lung Left Lower Lobe - #1 Bronchial Washings Culture - Final 04/20/20 10:26 Blood Culture - Preliminary Blood NEGATIVE TO DATE 04/20/20 10:18 Blood Culture - Preliminary Blood NEGATIVE TO DATE A&P Assessment and plan (1) Leukocytosis, unspecified: Status: Acute Qualifiers: Leukocytosis type: leukemoid reaction Qualified Code(s): D72.823 - Leukemoid reaction (2) Bilateral pulmonary infiltrates on chest x-ray: Status: Acute (3) Pneumonia: Status: Acute Qualifiers: Laterality: bilateral Lung location: lower lobe of lung Pneumonia type: due to unspecified organism Qualified Code(s): J18.9 - Pneumonia, unspecified organism (4) COPD (chronic obstructive pulmonary disease): Status: Acute Qualifiers: COPD type: unspecified COPD Qualified Code(s): J44.9 - Chronic obstructive pulmonary disease, unspecified (5) Smoker: Status: Acute #Persistent leukocytosis and fevers in pt s/p exploratory laparotomy POD#8 #Bilateral diffuse GGOs on CT chest with persistent fever spikes post intubation 48 hrs - ARDS from underlying pneumonia or intraabdominal source vs Viral Pneumonia -Primary attending consulted for bronchoscopy to rule out pneumonia on POD # 5 -Bronchoscopy on 04/20/20: clear airways with scant clear secretions -BAL samples sent for cultures - awaiting results. -Intubated during bronchoscopy on 04/20 as patient was requiring 10 L of oxygen and saturating 91-92 -Currently on VC tidal volume- ABG on 45 % FiO2 7.39/35/60/21 - Spiking fevers, WBC trending down, on imipenem, levofloxacin, vancomycin covered adequately for HAP/VAP - CT chest today Showed Diffuse hazy groundglass infiltrates throughout both lungs in a perihilar distribution suspicious for pneumonitis including viral pneumonia. Trace pleural fluid with compressive atelectasis in the lung bases. -Diffuse GGO's concerning for ARDS secondary to pneumonia/intra-abdominal infection versus COVID or viral pneumonia - Patient is placed in isolation and rapid covid sent is negative. -MICHELLE drain cultures growing staph/yeast-awaiting final cultures - subclavian line removed 04/21 and PICC line placed - On antifungal coverage after sending for fungal cultures - prefer micafungin as pt has risk factors for fungemia - On TPN, Perforated bowel. -renal to follow up regarding IRMA - improving renal parameters - monitor I & O and try to keep negative balance to facilitate extubation #COPD #Chronic current smoker-1 pack/day for more than 30 years -Need PFTs as outpatient -told never used any inhalers before intubation -Continue DuoNeb nebulizations every 6 hour scheduled Overall prognosis - very poor Ongoing sepsis - can lead to septic shock and multiorgan failure. still awaiting final cultures. Currently covered with Vancomycin/imipenem/Levaquin recommended to change voriconazole to Micafungin Recommendations conveyed to Dr. Harper Attestations Medical Necessity Statement*: severe sepsis/septic shock with ARDS - secondary to HAP vs intraabdominal infection Time Spent in Patient Care: Greater than 35 minutes (>than 50% of time spent in counselling and/or direct pt care on unit). Procedures Arterial Line Size (Gauge): 20 Coding Level of Care Code Established Pt Acute Planning Rn for Chg Fwd Patient Type Established Medical Decision Making High Complexity Diagnoses Leukocytosis, unspecified D72.823 Leukocytosis type: leukemoid reaction Bilateral pulmonary infiltrates on chest x-ray R91.8 Pneumonia J18.9 Laterality: bilateral Lung location: lower lobe of lung Pneumonia type: due to unspecified organism COPD (chronic obstructive pulmonary disease) J44.9 COPD type: unspecified COPD Smoker F17.200 Time Spent (min) 33
[2020-04-22 13:46] LABS: SARS Covid-2 Antigen Negative (Negative)
[2020-04-22 13:46] LABS: Influenza A by IFA Negative (Negative); Influenza B by IFA Negative (Negative)
[2020-04-22 13:46] LABS: Heparin-Induced Platelet AB Negative (Negative)
[2020-04-22 13:53] LABS: Bilirubin Urine Neg (NEGATIVE); Blood Urine 3+ (Negative); Glucose Urine UA Norm (Normal); Ketones Urine 1+ (Negative); Nitrate Urine Negative (Negative); Protein Urine 1+ (Negative); Urine Appearance Cloudy (CLEAR); Urine Color Yellow (Yellow); pH Urine 5 (5-7)
[2020-04-22 13:54] LABS: Leukocyte Esterase Urine 2+ (Negative); Urobilinogen Urine Norm (Negative)
[2020-04-22 13:55] LABS: RBC Urine 15-25 /hpf (0-2)
[2020-04-22 13:56] LABS: Bacteria Urine 1+; Squamous Epithelial Cell Urine 0-4 (0-5); Transitional Epi Cells Urine 0-4 /hpf; WBC Urine 80-100 /hpf (0-5)
[2020-04-22 13:57] LABS: Add Urine Culture? No; Coarse Granular Casts Urine 25-40 /lpf; Mucus Urine TRACE
[2020-04-22 14:01] LABS: Ferritin 600 ng/mL (15-150)
[2020-04-22 14:27] LABS: INR 1.53 (0.8-1.2); Partial Thromboplastin Time 32.6 SECONDS (23.9-36.7)
[2020-04-22 14:28] LABS: Fibrinogen 621 mg/dL (174-498)
[2020-04-22 14:39] LABS: D Dimer 11.88 ug/mIFEU (0-0.59)
[2020-04-22 15:39] LABS: Phosphorus 2.9 mg/dL (2.5-4.5)
--- NOTE | 2020-04-22 16:32 | PC.OT ---
OT note: From report from heart to heart, nursing requested hold this date. Will attempt again later as able.
[2020-04-22] MEDS: doxycycline 100 MG in dextrose 5 % 100 ML IV (16:57)
[2020-04-22] MEDS: magnesium sulfate premix 2 GM/50 ML PIGGYBACK IV (17:00)
[2020-04-22] MEDS: dextrose 5% 1,000 ML 50 ML IV (17:00)
[2020-04-22] MEDS: levofloxacin-dextrose 5% 750 mg-150 mL Premix 150 MG IV (17:01)
[2020-04-22] MEDS: enoxaparin 40 mg/0.4 mL Syringe SUBCUT (17:01)
[2020-04-22] MEDS: dexmedetomidine 400 MCG in sodium chloride 0.9% (100 ml) 100 ML 12 MCG IV ×2 (17:24→17:34)
--- NOTE | 2020-04-22 19:05 | PC.NURSE ---
WASTE 37.5ML OF VERSED. WITNESSED BY YIN FORREST RN.
[2020-04-22 20:46] LABS: Vancomycin Trough 12.8 ug/mL (10-15)
[2020-04-23] VITALS (88 sets, daily range): BP systolic 96–171; BP diastolic 53–84; PULSE 64–96; RESP 17–27; TEMP 36.9–37.7; O2SAT 92–99
[2020-04-23] MEDS: dexmedetomidine 400 MCG in sodium chloride 0.9% (100 ml) 100 ML 14 MCG IV ×3 (00:11→19:33)
[2020-04-23 00:22] LABS: Legionella Specimen Source BRONCHIAL WASH
[2020-04-23] MEDS: ipratropium-albuterol 3 mL Neb INHALATION ×4 (02:14→21:48)
[2020-04-23] MEDS: doxycycline 100 MG in dextrose 5 % 100 ML IV ×2 (04:34→17:02)
[2020-04-23 05:01] LABS: ABG PCO2 32.8 mmHg (35-45); Blood Gas Sample Type Arterial; HCO3 ABG 25.8 mmol/L (22-26); Oxygen Device VENT; PO2 ABG 66.7 mmHg (80.0-100.0)
[2020-04-23 05:02] LABS: Blood Gas Tidal Volume 0.45
[2020-04-23 05:17] LABS: Hematocrit 28.8 % (37.0-47.0); Hemoglobin 8.8 g/dL (11.5-15.3); Mean Corpuscular HGB Conc 30.6 g/dL (30.0-36.0); Platelet Count 119 10^3/cmm (130-400); Red Blood Count 3.03 10^6/uL (4.1-5.3); Red Cell Distribution Width 18.1 % (12.1-15.1); White Blood Count 21.4 10^3/uL (4.0-10.0)
--- NOTE | 2020-04-23 05:49 | P.PN_ITS ---
Subjective Subjective: Interval history: Patient overall is making appropriate clinical progress. Undergone a CT scan of the chest abdomen and pelvis that showed: 1. Diffuse hazy groundglass infiltrates throughout both lungs in a perihilar distribution suspicious for pneumonitis including viral pneumonia. Trace pleural fluid with compressive atelectasis in the lung bases. 2. Postoperative changes laparotomy with open anterior abdominal wall incision. 3. Diffuse body wall anasarca and mesenteric edema slightly improved from previous. 4. No evidence of new drainable fluid collection or abscess in the abdomen or pelvis. Stable surgical drains. 5. Again seen are findings of adynamic ileus with air-fluid levels in slightly distended loops of small and large bowel with persistent air in the colon. No evidence of high-grade obstruction. 6. Romano catheter in place. 7. Enteric tube in the stomach. No spiking of fevers overnight and continues to have a slow down of her drains without evidence of succus or enteric contents from any of the drains or per wound bed. Continues to have good urine output Required a small dose of pressors yesterday but that was weaned off by the assistant shift supervisor nursing staff and currently patient is off pressors with appropriate vital signs. Otherwise no acute events overnight On morning rounds patient is awake and following commands without obvious kristine rological deficits. Patient continues to receive tube feeds at 20 mL/h and she is passing gas when I asked her,also she does receive 200 mL of free water every 6 hours to correct her hypernatremia. Vitals/I&O/Wt Last Vital Signs Temp 99.0 F 04/23/20 05:00 Pulse 80 04/23/20 05:00 Resp 24 H 04/23/20 05:00 BP 149/73 04/23/20 05:00 Pulse Ox 94 04/23/20 05:00 04/22/20 04/22/20 04/23/20 14:59 22:59 06:59 Intake Total 3225 / 3225 2292.2 / 5517.2 723.067 / 6240.267 Output Total 600 / 600 725 / 1325 830 / 2155 Balance 2625 / 2625 1567.2 / 4192.2 -106.933 / 4085.267 Physical Exam Narrative: EXAM NARRATIVE: Patient is conscious, continues to be intubated on sedation and following commands when sedation wearing off BMI [address] and tube feeds running at 20 mL/h Head and neck examination PERRLA no masses no cervical lymphadenopathy no jaundice Abdomen nontender nondistended soft no organomegaly guarding or rigidity/no si gns of peritonitis Wound bed is clean without evidence of succus and drains in place with serous output of the right upper quadrant and sanguinous of the left lower quadrant which is clearing up. Romano catheter in place Extremities no cyanosis no clubbing no edema Urinary Catheter Management^: Romano: Cath Placed During This Visit: yes, but has since been removed by the nurse Reason for Continuing Indwelling Catheter: Accurate Measurement of Urinary Output in Critically Ill Patients Urinary Catheter Date of Insertion: 04/19/20 Urinary Catheter Time of Insertion: 08:51 Date Urinary Catheter Removed: 04/19/20 Time Urinary Catheter Discontinued: : Data : 04/23/20 05:05 04/23/20 05:05 Micro: Microbiology 04/20/20 08:51 Fungal Smear - Preliminary Sputum - Endotracheal Tube Aspirate 04/20/20 08:51 Mycobacterial Smear - Preliminary Body Fluids - Bronchial 04/22/20 12:53 Gram Stain - Final Other Source 04/21/20 11:10 Catheter Tip Culture - Preliminary Central Line 04/20/20 10:05 Gram Stain - Final Other Source Body Fluid Culture - Preliminary Yeast species Staphylococcus species 04/20/20 09:20 Gram Stain - Final Sputum - Endotracheal Tube Aspirate Sputum Culture - Final 04/20/20 08:51 Gram Stain - Final Lung Left Lower Lobe - #1 Bronchial Washings Culture - Final A&P Assessment and plan (1) Sepsis: Resolution of sepsis and patient is responding well to antimicrobial therapy including antifungal therapy Wean to extubate Advance tube feeds as tolerated and check residual We will continue coordination with hospitalist pulmonary and nephrology services Dr. Goodwin kindly will round on the patient over the weekend Status: Acute (2) Bowel perforation: Patient is a status post expiratory laparotomy 04/13/2020 Plan: PLAN OF CARE: CVS: Continue continuous cardiac monitoring Continue SCDs Lovenox for pharmacologic DVT prophylaxis renal friendly dose PULMONARY: Aggressive pulmonary toilet I would recommend highly wean to extubate when possible Diuretic therapy per hospitalist service We will follow on pulmonary service input GI: As patient continues to pass gas will advance tube feeds accordingly NUTRITION; Trophic feeds at 20 RENAL: Continue monitoring kidney functions Strict I's and O's Continue electrolyte protocols for replacement including calcium potassium and magnesium INFECTIOUS DISEASE: We will continue current antimicrobial and antifungal therapy and narrowed according to the cultures and sensitivities NEUROLOGY: Sedated on mechanical ventilation yet when awake no obvious neurological deficits MOBILITY: Continue physical therapy SKIN AND WOUND: Daily Dry-to-dry dressing change and packing of the abdominal wound No pressure injury ulcers reported per nursing staff We will continue turning in bed every 2 hours to avoid potential pressure injury ulcer Pain control; IV pain medication Will continue Family Updates and have case management to discuss further rehabilitation with the patient and the family coordinate with physical therapy and hospitalist services. Status: Resolved Attestations Medical Necessity Statement*: Medical necessity care is expected to cross 2 midnights Time Spent in Patient Care: (>than 50% of time spent in counselling and/or direct pt care on unit) . 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
[2020-04-23 05:54] LABS: Vancomycin Trough 16.1 ug/mL (10-15)
[2020-04-23 06:01] LABS: Alanine Aminotransferase 60 U/L (0-33); Albumin Level 2.9 g/dL (3.5-5.2); Alkaline Phosphatase 122 IU/L (35-105); Anion Gap 13.9 (5-19); Aspartate Amino Transferase 35 U/L (0-32); Blood Urea Nitrogen 39 mg/dL (6-20); Calcium 8.1 mg/dL (8.5-10.5); Carbon Dioxide 25 mmol/L (22-29); Chloride 112 mmol/L (98-107); Globulin 3.3 g/dL (1.3-4.6); Glucose 191 mg/dL (65-115); Osmolality Calculated 307 mOsm/kg (285-295); Potassium 3.9 mmol/L (3.5-5.1); Sodium 147 mmol/L (136-145); Total Bilirubin 0.9 mg/dL (0.15-1.2); Total Protein 6.2 g/dL (6.6-8.7)
--- NOTE | 2020-04-23 06:08 | P.PN_ITS ---
Subjective Subjective: Interval history: improved since yesterday Medications: Reviewed: Yes Vitals/I&O/Wt Last Vital Signs Temp 99.0 F 04/23/20 05:00 Pulse 80 04/23/20 05:00 Resp 26 H 04/23/20 05:58 BP 149/73 04/23/20 05:00 Pulse Ox 94 04/23/20 05:00 04/22/20 04/22/20 04/23/20 14:59 22:59 06:59 Intake Total 3225 / 3225 2292.2 / 5517.2 723.067 / 6240.267 Output Total 600 / 600 725 / 1325 830 / 2155 Balance 2625 / 2625 1567.2 / 4192.2 -106.933 / 4085.267 Physical Exam Const: COMMON NORMALS: no acute distress Urinary Catheter Management^: Romano: Cath Placed During This Visit: yes, but has since been removed by the nurse Reason for Continuing Indwelling Catheter: Accurate Measurement of Urinary Output in Critically Ill Patients Urinary Catheter Date of Insertion: 04/19/20 Urinary Catheter Time of Insertion: 08:51 Date Urinary Catheter Removed: 04/19/20 Time Urinary Catheter Discontinued: 08:28 Data : 04/23/20 05:05 04/23/20 05:05 Micro: Microbiology 04/20/20 08:51 Fungal Smear - Preliminary Sputum - Endotracheal Tube Aspirate 04/20/20 08:51 Mycobacterial Smear - Preliminary Body Fluids - Bronchial 04/22/20 12:53 Gram Stain - Final Other Source 04/21/20 11:10 Catheter Tip Culture - Preliminary Central Line 04/20/20 10:05 Gram Stain - Final Other Source Body Fluid Culture - Preliminary Yeast species Staphylococcus species 04/20/20 09:20 Gram Stain - Final Sputum - Endotracheal Tube Aspirate Sputum Culture - Final 04/20/20 08:51 Gram Stain - Final Lung Left Lower Lobe - #1 Bronchial Washings Culture - Final A&P Additional A&P Information (1) Acute kidney injury, nonoliguric, BUN, CR falling. CT abdomen showed anasarca (2) Hypervolemic hypernatremia, serum sodium improving. Receiving IV D5W at 50 ml/min. continue water flushes via feeding tube as tolerated (3) Rhabdomyolysis: resolved (4) Sepsis due to bowel perforation, fever today, lines changed, cultures drawn. 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
[2020-04-23] MEDS: dexmedetomidine 400 MCG in sodium chloride 0.9% (100 ml) 100 ML 12 MCG IV (06:21)
[2020-04-23 07:22] LABS: Slide Review Slide Review Perform
[2020-04-23 07:24] LABS: Absolute Neutrophil 18.8 10^3/cmm (1.4-6.5); Absolute Segmented Neutrophil 17.3 10/cmm (1.6-7.1); Anisocytosis 1+; Band Neutrophils Absolute 1.5 10^3/cmm (0.0-1.2); Lymphocytes 3 %; Monocytes Absolute 0.9 10^3/cmm (0.1-0.6); Platelet Estimate Decreased (Normal); Polychromasia Trace; Segmented Neutrophils 81 %; Total Cells Counted 100 (0-100)
--- NOTE | 2020-04-23 08:51 | PM.PN ---
Subjective Subjective: Interval history: Patient is doing much better. She is afebrile. Levophed drip was discontinued last night. She was started on doxycycline yesterday evening due to concern for atypical infection and possibly tickborne illness. She also was switched to caspofungin from voriconazole. I have requested micro lab to keep blood cultures for longer in case if it will grow fungal infection. Her white blood cell count is down to 21.4. She responded well to 1 unit of PRBC with hemoglobin up to 8.8. She had 800 mL urinary output since yesterday. Her platelets are down to 119 and given overall clinical improvement it appears that they are lagging behind. Her sodium also improved and liver enzymes continue to get better. She is currently on FiO2 50% with PEEP of 10 saturating in the mid 90s. Medications: Reviewed: Yes Vitals/I&O/Wt Last Vital Signs Temp 98.6 F 04/23/20 07:00 Pulse 75 04/23/20 07:15 Resp 25 H 04/23/20 06:00 BP 125/59 04/23/20 07:15 Pulse Ox 94 04/23/20 07:15 04/22/20 04/23/20 04/23/20 22:59 06:59 14:59 Intake Total 2292.2 / 5517.2 909.400 / 6426.600 100 / 100 Output Total 725 / 1325 830 / 2155 Balance 1567.2 / 4192.2 79.400 / 4271.600 100 / 100 Physical Exam Const: COMMON NORMALS: no acute distress OTHER: Not in any distress. Resp: COMMON NORMALS: clear to auscultation bilaterally AUSCULTATION: clear to auscultation bilaterally OTHER: Intubated and sedated. Cardio: COMMON NORMALS: regular rate, regular rhythm and S2 normal heart sound present RATE: regular rate RHYTHM: regular rhythm HEART SOUNDS: S2 normal heart sound present OTHER: No lower extremity edema GI: COMMON NORMALS: Normal to inspection, nondistended, normoactive bowel sounds present, Soft to palpation and non-tender PALPATION: Yes Soft to palpation OTHER: Abdominal incision dressed. No bowel sounds appreciated. Appears slightly distended. Binder is applied. Neuro: COMMON NORMALS: no focal motor deficits OTHER: Intubated and sedated. Urinary Catheter Management^: Romano: Cath Placed During This Visit: yes, but has since been removed by the nurse Reason for Continuing Indwelling Catheter: Accurate Measurement of Urinary Output in Critically Ill Patients Urinary Catheter Date of Insertion: 04/19/20 Urinary Catheter Time of Insertion: 08:51 Date Urinary Catheter Removed: 04/19/20 Time Urinary Catheter Discontinued: 08:28 Data : 04/23/20 05:05 04/23/20 05:05 Micro: Microbiology 04/20/20 08:51 Fungal Smear - Preliminary Sputum - Endotracheal Tube Aspirate 04/20/20 08:51 Mycobacterial Smear - Preliminary Body Fluids - Bronchial 04/22/20 12:53 Gram Stain - Final Other Source 04/21/20 11:10 Catheter Tip Culture - Preliminary Central Line 04/20/20 10:05 Gram Stain - Final Other Source Body Fluid Culture - Preliminary Yeast species Staphylococcus species 04/20/20 09:20 Gram Stain - Final Sputum - Endotracheal Tube Aspirate Sputum Culture - Final 04/20/20 08:51 Gram Stain - Final Lung Left Lower Lobe - #1 Bronchial Washings Culture - Final A&P Assessment and plan (1) Bowel perforation: Status: Resolved (2) Acute kidney injury: Prerenal initially and now appears to be renal. Acute tubular necrosis with multiple etiologies including rhabdomyolysis and hypotension Status: Acute (3) Generalized anxiety disorder: Status: Chronic (4) Dehydration with hyponatremia: Status: Acute (5) Severe sepsis with acute organ dysfunction due to Gram negative bacteria: As exhibited by tachycardia and leukocytosis as well as elevated lactic acid. Patient had normal respiration and was afebrile. Status: Acute (6) Septic shock: Status: Resolved (7) Hypokalemia: Present admission Status: Acute (8) Liver enzyme elevation: Status: Acute (9) Rhabdomyolysis: Status: Acute (10) Shock liver: Status: Acute (11) Acute anemia: GI bleed cannot be ruled out Status: Acute Additional A&P Information PLAN: We will continue current monitoring and treatment. We will discuss with respite therapist and see if we can work our way to extubation trial. Awaiting culture results. Attestations Medical Necessity Statement*: Patient with perforated viscus and sepsis requires close ICU monitoring and treatment including mechanical ventilation. 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
[2020-04-23] MEDS: dexamethasone 10 mg/mL INJ 6 MG IVP (08:58)
[2020-04-23] MEDS: pantoprazole 40 mg SDV IVP (08:58)
[2020-04-23] MEDS: budesonide 0.5 mg/2 mL Neb INHALATION ×2 (09:12→21:48)
--- NOTE | 2020-04-23 11:25 | PC.SOCIAL ---
IMM Updated Page 2 of IMM updated and given to patient. Initialed, dated, and timed and placed back in chart.
--- NOTE | 2020-04-23 11:46 | P.PN_ITS ---
Subjective Subjective: Interval history: No more fever spikes since today morning, WBC trending down ABG suggestive of respiratory alkalosis Failed weaning trial today morning but otherwise patient and labs improving overall Medications: Reviewed: Yes Vitals/I&O/Wt Last Vital Signs Temp 98.6 F 04/23/20 07:00 Pulse 72 04/23/20 10:30 Resp 26 H 04/23/20 11:38 BP 135/75 04/23/20 10:30 Pulse Ox 95 04/23/20 10:30 04/22/20 04/23/20 04/23/20 22:59 06:59 14:59 Intake Total 2292.2 / 5517.2 909.400 / 6426.600 137.933 / 137.933 Output Total 725 / 1325 830 / 2155 34 / 34 Balance 1567.2 / 4192.2 79.400 / 4271.600 103.933 / 103.933 Physical Exam Narrative: EXAM NARRATIVE: PHYSICAL EXAM: General: lying in bed, sedated and intubated. HEENT:NCAT, PERRLA, EOMI Neck: Supple Lungs: Bibasilar crackles Heart: s1/s2, RRR Abd: soft, Abdominal binder in place, distended BS +But reduced Extremities: 1+ edema ZUMBA INSTRUCTOR: sedated and limited ZUMBA INSTRUCTOR exam possible. SKIN: no rash Urinary Catheter Management^: Romano: Cath Placed During This Visit: yes, but has since been removed by the nurse Reason for Continuing Indwelling Catheter: Accurate Measurement of Urinary Output in Critically Ill Patients Urinary Catheter Date of Insertion: 04/19/20 Urinary Catheter Time of Insertion: 08:51 Date Urinary Catheter Removed: 04/19/20 Time Urinary Catheter Discontinued: 08:28 Data : 04/23/20 05:05 04/23/20 05:05 Micro: Microbiology 04/22/20 12:20 Urine Culture - Preliminary Urine Catheterized Yeast species 04/20/20 08:51 Fungal Smear - Preliminary Sputum - Endotracheal Tube Aspirate 04/20/20 08:51 Mycobacterial Smear - Preliminary Body Fluids - Bronchial 04/22/20 12:53 Gram Stain - Final Other Source 04/21/20 11:10 Catheter Tip Culture - Preliminary Central Line 04/20/20 10:05 Gram Stain - Final Other Source Body Fluid Culture - Preliminary Yeast species Staphylococcus species 04/20/20 09:20 Gram Stain - Final Sputum - Endotracheal Tube Aspirate Sputum Culture - Final 04/20/20 08:51 Gram Stain - Final Lung Left Lower Lobe - #1 Bronchial Washings Culture - Final A&P Assessment and plan (1) Leukocytosis, unspecified: Status: Acute Qualifiers: Leukocytosis type: leukemoid reaction Qualified Code(s): D72.823 - Leukemoid reaction (2) Bilateral pulmonary infiltrates on chest x-ray: Status: Acute (3) Pneumonia: Status: Acute Qualifiers: Pneumonia type: due to unspecified organism Laterality: bilateral Lung location: lower lobe of lung Qualified Code(s): J18.9 - Pneumonia, unspecified organism (4) COPD (chronic obstructive pulmonary disease): Status: Acute Qualifiers: COPD type: unspecified COPD Qualified Code(s): J44.9 - Chronic obstructive pulmonary disease, unspecified (5) Smoker: Status: Acute #Persistent leukocytosis and fevers in pt s/p exploratory laparotomy PO D#8-improving #Bilateral diffuse GGOs on CT chest with persistent fever spikes post intubation 48 hrs - ARDS from underlying pneumonia or intraabdominal source vs Viral Pneumonia -Primary attending consulted for bronchoscopy to rule out pneumonia on POD # 5 -Bronchoscopy on 04/20/20: clear airways with scant clear secretions -BAL samples sent for cultures - awaiting results. -Intubated during bronchoscopy on 04/20 as patient was requiring 10 L of oxygen and saturating 91-92 -Currently on VC tidal volume- ABG on 45 % FiO2 7.5 0// - CT chest today Showed Diffuse hazy groundglass infiltrates throughout both lungs in a perihilar distribution suspicious for pneumonitis including viral pneumonia. Trace pleural fluid with compressive atelectasis in the lung bases. -Diffuse GGO's concerning for ARDS secondary to pneumonia/intra-abdominal infection versus COVID or viral pneumonia - Patient is placed in isolation and rapid covid sent is negative. COVID PCR pending -MICHELLE drain cultures growing staph/yeast-awaiting final cultures - Subclavian line removed 04/21 and PICC line placed - No more fever spikes since morning and WBC trending down - on imipenem, levofloxacin, vancomycin covered adequately for HAP/VAP and added doxy for? Tickborne illness - On antifungal coverage after sending for fungal cultures -on micafungin - IRMA resolved- monitor I & O and try to keep negative balance to facilitate extubation #COPD #Chronic current smoker-1 pack/day for more than 30 years -Need PFTs as outpatient -told never used any inhalers before intubation -Continue DuoNeb nebulizations every 6 hour scheduled Overall prognosis -guarded Seems like responding to antibiotic/antifungal coverage and clinically improving COVID PCR pending and final cultures from MICHELLE drain are pending Currently covered with Vancomycin/imipenem/Levaquin/Micafungin Recommendations conveyed to Dr. Harper hospitalist Attestations Medical Necessity Statement*: Acute hypoxic respiratory failure likely secondary to ongoing sepsis still intubated and mechanically ventilated Time Spent in Patient Care: 16 - 35 minutes (>than 50% of time spent in counselling and/or direct pt care on unit) . Procedures Arterial Line Size (Gauge): 20 Coding Level of Care Code New Pt Acute Slitter Service And Setter for g Fwd Patient Type New Diagnoses Leukocytosis, unspecified D72.823 Leukocytosis type: leukemoid reaction Bilateral pulmonary infiltrates on chest x-ray R91.8 Pneumonia J18.9 Pneumonia type: due to unspecified organism Laterality: bilateral Lung location: lower lobe of lung COPD (chronic obstructive pulmonary disease) J44.9 COPD type: unspecified COPD Smoker F17.200 Time Spent (min) 33
[2020-04-23] MEDS: dextrose 5% 1,000 ML 50 ML IV (12:59)
--- NOTE | 2020-04-23 15:24 | PC.NURSE ---
0930 castelan bag changed out
--- NOTE | 2020-04-23 16:18 | PC.OT ---
Hold OT services today per physician and nursing as pt is still intubated. Will check with pt care team tomorrow to see if pt's status is improved enough to allow therapy.
[2020-04-23] MEDS: levofloxacin-dextrose 5% 750 mg-150 mL Premix 1500 MG IV (17:03)
[2020-04-23] MEDS: enoxaparin 40 mg/0.4 mL Syringe SUBCUT (17:35)
[2020-04-23] MEDS: hyDRALAzine 20 mg/mL INJ 1 mL 10 MG IVP (23:47)
[2020-04-24] VITALS (30 sets, daily range): BP systolic 117–168; BP diastolic 56–84; PULSE 61–79; RESP 14–25; TEMP 36.4–37.1; O2SAT 96–100
[2020-04-24] MEDS: dexmedetomidine 400 MCG in sodium chloride 0.9% (100 ml) 100 ML 8 MCG IV (01:54)
[2020-04-24] MEDS: ipratropium-albuterol 3 mL Neb INHALATION ×4 (02:53→21:33)
[2020-04-24 04:10] LABS: ABG PCO2 30.6 mmHg (35-45); Arterial Blood Gas Hematocrit 27.8 % (37-47); Base Excess ABG 1.2 mmol/L (-2.0-2.0); Blood Gas Allen Test Pos; Blood Gas Sample Site Radial, left; Blood Gas Sample Type Arterial
[2020-04-24] MEDS: dextrose 5% 1,000 ML 50 ML IV (04:39)
[2020-04-24] MEDS: doxycycline 100 MG in dextrose 5 % 100 ML IV ×2 (04:39→17:34)
[2020-04-24 06:10] LABS: Coronavirus Lab Test PTC Negative
[2020-04-24 06:51] LABS: Basophils % 0.1 %; Hematocrit 28.2 % (37.0-47.0); Hemoglobin 8.6 g/dL (11.5-15.3); Lymphocytes # 0.9 10^3/uL (0.8-4.8); Lymphocytes % 5.5 %; Mean Corpuscular HGB Conc 30.5 g/dL (30.0-36.0); Mean Corpuscular Hemoglobin 28.8 pg (28.0-34.0); Mean Corpuscular Volume 94.3 fL (81-99); Mean Platelet Volume 10.5 fL (7.4-10.4); Monocytes # 0.7 10^3/uL (0.2-0.9); Neutrophils % 87.3 %; Nucleated Red Blood Cells % 0 %; Platelet Count 138 10^3/cmm (130-400); Red Blood Count 2.99 10^6/uL (4.1-5.3); Red Cell Distribution Width 17.2 % (12.1-15.1); White Blood Count 16.4 10^3/uL (4.0-10.0)
--- NOTE | 2020-04-24 07:04 | P.PN_ITS ---
Subjective Subjective: Interval history: Patient did well overnight and this morning. Precedex weaned off and patient this morning alert and oriented. She denies any pain or discomfort even while intubated. She remained afebrile. She had more than 800 mL urinary output. She saturating 99% this morning on 45% FiO2 and 10 PEEP. Her WBC count further improves. Her platelets improved and 138 this morning. BMP is currently pending. Her urine is growing yeast as well as MICHELLE drain culture. Her blood cultures so far negative. Microbiology lab was requested to hold blood cultures more than 5 days to see if fungal infection grows. Her right MICHELLE drain is also growing staph species. Patient reports that last time she removed a tick from her cell was 5 years ago. Medications: Reviewed: Yes Vitals/I&O/Wt Last Vital Signs Temp 98.7 F 04/24/20 04:00 Pulse 62 04/24/20 06:00 Resp 18 04/24/20 06:15 BP 143/74 04/24/20 06:00 Pulse Ox 99 04/24/20 06:00 04/23/20 04/24/20 04/24/20 22:59 06:59 14:59 Intake Total 926.067 / 2217.067 1968.601 / 4185.668 Output Total 135 / 694 900 / 1594 Balance 791.067 / 4931.425 2344.601 / 2591.668 Physical Exam Const: COMMON NORMALS: no acute distress OTHER: Not in any distress. Resp: OTHER: Intubated and alert, coarse mechanical ventilation sounds throughout, upper airway transmitted. Cardio: COMMON NORMALS: regular rate, regular rhythm and S2 normal heart sound present RATE: regular rate RHYTHM: regular rhythm HEART SOUNDS: S2 normal heart sound present OTHER: No lower extremity edema GI: COMMON NORMALS: Normal to inspection, nondistended, normoactive bowel sounds present, Soft to palpation and non-tender PALPATION: Yes Soft to palpation OTHER: Abdominal incision dressed. No bowel sounds appreciated. Appears non-distended. Binder is applied. Neuro: COMMON NORMALS: no focal motor deficits Urinary Catheter Management^: Romano: Cath Placed During This Visit: yes, but has since been removed by the nurse Reason for Continuing Indwelling Catheter: Accurate Measurement of Urinary Output in Critically Ill Patients Urinary Catheter Date of Insertion: 04/19/20 Urinary Catheter Time of Insertion: 08:51 Date Urinary Catheter Removed: 04/19/20 Time Urinary Catheter Discontinued: 08:28 Data : 04/24/20 06:30 04/23/20 05:05 Micro: Microbiology 04/20/20 10:05 Gram Stain - Final Other Source Body Fluid Culture - Preliminary Yeast species Staphylococcus epidermidis 04/22/20 12:53 Gram Stain - Final Other Source Body Fluid Culture - Preliminary Staphylococcus species 04/21/20 11:10 Catheter Tip Culture - Final Central Line 04/22/20 12:20 Urine Culture - Preliminary Urine Catheterized Yeast species A&P Assessment and plan (1) Bowel perforation: Status: Resolved (2) Acute kidney injury: Prerenal initially and now appears to be renal. Acute tubular necrosis with multiple etiologies including rhabdomyolysis and hypotension Status: Acute (3) Generalized anxiety disorder: Status: Chronic (4) Dehydration with hyponatremia: Status: Acute (5) Severe sepsis with acute organ dysfunction due to Gram negative bacteria: As exhibited by tachycardia and leukocytosis as well as elevated lactic acid. Patient had normal respiration and was afebrile. Status: Acute (6) Septic shock: Status: Resolved (7) Hypokalemia: Present admission Status: Acute (8) Liver enzyme elevation: Status: Acute (9) Rhabdomyolysis: Status: Acute (10) Shock liver: Status: Acute (11) Acute anemia: GI bleed cannot be ruled out Status: Acute Additional A&P Information PLAN: Will discuss with RT and we will work towards extubating patient. I will discontinue Levaquin and dexamethasone and continue monitoring. We will keep micafungin, vancomycin and doxycycline as well as Primaxin for now. Awaiting labs and cultures. Attestations Medical Necessity Statement*: Patient post bowel perforation currently intubated requiring close ICU monitoring and treatment. Time Spent in Patient Care: 16 - 35 minutes Procedures Arterial Line Size (Gauge): 20 Coding Level of Care Code Acute Administrative Personal Assistant for g Fwd Diagnoses Bowel perforation K63.1 Acute kidney injury N17.9 Generalized anxiety disorder F41.1 Dehydration with hyponatremia E86.0; E87.1 Severe sepsis with acute organ dysfunction due to Gram negative bacteria A41.50; R65.20 Septic shock A41.9; R65.21 Hypokalemia E87.6 Liver enzyme elevation R74.8 Rhabdomyolysis M62.82 Shock liver K72.00 Acute anemia D64.9
[2020-04-24 07:21] LABS: Anion Gap 13.9 (5-19); Blood Urea Nitrogen 43 mg/dL (6-20); Carbon Dioxide 24 mmol/L (22-29); Chloride 110 mmol/L (98-107); Glucose 159 mg/dL (65-115); Osmolality Calculated 299 mOsm/kg (285-295); Potassium 3.9 mmol/L (3.5-5.1); Sodium 144 mmol/L (136-145)
--- NOTE | 2020-04-24 07:55 | PM.PN ---
Subjective Subjective: Interval history: Surgical coverage for Dr. Villegas: This is a 54-year-old white female who underwent exploratory laparotomy on 04/13/2020 for a suspected perforated viscus. In reading the operative note, it sounds like the sigmoid colon was thought to be most likely the source of this, although a distinct perforation was not identified at the time. The patient had an extensive peritoneal washout with drain placement. She remains on the ventilator. Her abdominal wound is being packed. She still has some peritoneal drains in place. Vitals/I&O/Wt Last Vital Signs Temp 98.7 F 04/24/20 04:00 Pulse 62 04/24/20 06:00 Resp 18 04/24/20 06:15 BP 143/74 04/24/20 06:00 Pulse Ox 99 04/24/20 06:00 04/23/20 04/24/20 04/24/20 22:59 06:59 14:59 Intake Total 926.067 / 4185.668 1968.601 / 4185.668 Output Total 135 / 1594 900 / 1594 Balance 791.067 / 2591.668 1068.601 / 2591.668 Physical Exam Narrative: EXAM NARRATIVE: The patient remains on the ventilator, but is alert and can nod appropriately to questions. The abdomen does reveal a few bowel sounds and the wound packing appears to only have some dried serous/serosanguineous drainage on the gauze. The surrounding skin appears healthy. The peritoneal drains have minimal serous/serosanguineous fluid in the bulbs. Urinary Catheter Management^: Romano: Cath Placed During This Visit: yes, but has since been removed by the nurse Reason for Continuing Indwelling Catheter: Accurate Measurement of Urinary Output in Critically Ill Patients Urinary Catheter Date of Insertion: 04/19/20 Urinary Catheter Time of Insertion: 08:51 Date Urinary Catheter Removed: 04/19/20 Time Urinary Catheter Discontinued: 08:28 Data : 04/24/20 06:30 04/24/20 06:30 Micro: Microbiology 04/20/20 10:05 Gram Stain - Final Other Source Body Fluid Culture - Preliminary Yeast species Staphylococcus epidermidis 04/22/20 12:53 Gram Stain - Final Other Source Body Fluid Culture - Preliminary Staphylococcus species 04/21/20 11:10 Catheter Tip Culture - Final Central Line 04/22/20 12:20 Urine Culture - Preliminary Urine Catheterized Yeast species A&P Assessment and plan (1) Sepsis: Patient reportedly has been improving. Plans for hopeful extubation today. Status: Acute (2) Bowel perforation: The patient has reportedly had a bowel movement since surgery, but apparently it has been some time since that occurred. She does have bowel activity by auscultation. Status: Resolved Attestations Medical Necessity Statement*: See admitting service's notation. 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
[2020-04-24] MEDS: budesonide 0.5 mg/2 mL Neb INHALATION ×2 (08:10→21:33)
--- NOTE | 2020-04-24 09:16 | P.PN_ITS ---
Subjective Medications: Reviewed: Yes Vitals/I&O/Wt Last Vital Signs Temp 98.7 F 04/24/20 04:00 Pulse 64 04/24/20 08:15 Resp 19 H 04/24/20 08:15 BP 143/74 04/24/20 06:00 Pulse Ox 98 04/24/20 08:15 04/23/20 04/24/20 04/24/20 22:59 06:59 14:59 Intake Total 926.067 / 2217.067 1968.601 / 4185.668 Output Total 135 / 694 900 / 1594 Balance 791.067 / 5630.589 2432.601 / 2591.668 Physical Exam Urinary Catheter Management^: Romano: Cath Placed During This Visit: yes, but has since been removed by the nurse Reason for Continuing Indwelling Catheter: Accurate Measurement of Urinary Output in Critically Ill Patients Urinary Catheter Date of Insertion: 04/19/20 Urinary Catheter Time of Insertion: 08:51 Date Urinary Catheter Removed: 04/19/20 Time Urinary Catheter Discontinued: 08:28 Data : 04/24/20 06:30 04/24/20 06:30 Micro: Microbiology 04/20/20 10:05 Gram Stain - Final Other Source Body Fluid Culture - Preliminary Yeast species Staphylococcus epidermidis 04/22/20 12:53 Gram Stain - Final Other Source Body Fluid Culture - Preliminary Staphylococcus species 04/21/20 11:10 Catheter Tip Culture - Final Central Line 04/22/20 12:20 Urine Culture - Preliminary Urine Catheterized Yeast species A&P Additional A&P Information (1) Acute kidney injury, nonoliguric. 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
--- NOTE | 2020-04-24 10:00 | PC.RESP ---
extubated pt extubated to high flow 30lpm 40%
--- NOTE | 2020-04-24 10:58 | PM.PN ---
Subjective Subjective: Interval history: WBC trending down and no more fever spikes Patient improving clinically following commands Weaning trial successful We will plan to extubate to high flow nasal cannula Medications: Reviewed: Yes Vitals/I&O/Wt Last Vital Signs Temp 98.7 F 04/24/20 04:00 Pulse 75 04/24/20 09:00 Resp 19 H 04/24/20 08:15 BP 123/56 04/24/20 09:00 Pulse Ox 96 04/24/20 09:00 04/23/20 04/24/20 04/24/20 22:59 06:59 14:59 Intake Total 926.067 / 2217.067 1968.601 / 4185.668 Output Total 135 / 694 900 / 1594 Balance 791.067 / 2897.069 0504.601 / 2591.668 Physical Exam Narrative: EXAM NARRATIVE: PHYSICAL EXAM: General: lying in bed, still intubated and following commands HEENT:NCAT, PERRLA, EOMI Neck: Supple Lungs: Improved breath sounds bilaterally Heart: s1/s2, RRR Abd: soft, Abdominal binder in place, distended, BS +But reduced Extremities: 1+ edema AXLE AND FRAME MECHANIC: Awake and following commands no gross FND SKIN: no rash Urinary Catheter Management^: Romano: Cath Placed During This Visit: yes, but has since been removed by the nurse Reason for Continuing Indwelling Catheter: Accurate Measurement of Urinary Output in Critically Ill Patients Urinary Catheter Date of Insertion: 04/19/20 Urinary Catheter Time of Insertion: 08:51 Date Urinary Catheter Removed: 04/19/20 Time Urinary Catheter Discontinued: 08:28 Data : 04/24/20 06:30 04/24/20 06:30 Micro: Microbiology 04/22/20 12:20 Urine Culture - Preliminary Urine Catheterized Yeast species 04/20/20 10:05 Gram Stain - Final Other Source Body Fluid Culture - Preliminary Yeast species Staphylococcus epidermidis 04/22/20 12:53 Gram Stain - Final Other Source Body Fluid Culture - Preliminary Staphylococcus species 04/21/20 11:10 Catheter Tip Culture - Final Central Line A&P Assessment and plan (1) Leukocytosis, unspecified: Status: Acute Qualifiers: Leukocytosis type: leukemoid reaction Qualified Code(s): D72.823 - Leukemoid reaction (2) Bilateral pulmonary infiltrates on chest x-ray: Status: Acute (3) Pneumonia: Status: Acute Qualifiers: Pneumonia type: due to unspecified organism Laterality: bilateral Lung location: lower lobe of lung Qualified Code(s): J18.9 - Pneumonia, unspecified organism (4) COPD (chronic obstructive pulmonary disease): Status: Acute Qualifiers: COPD type: unspecified COPD Qualified Code(s): J44.9 - Chronic obstructive pulmonary disease, unspecified (5) Smoker: Status: Acute #Persistent leukocytosis and fevers in pt s/p exploratory laparotomy POD#8-improving #Bilateral diffuse GGOs on CT chest with persistent fever spikes post intubation 48 hrs - ARDS from underlying pneumonia or intraabdominal source vs Viral Pneumonia -Primary attending consulted for bronchoscopy to rule out pneumonia on POD # 5 -Bronchoscopy on 04/20/20: clear airways with scant clear secretions -BAL cultures negative -Intubated during bronchoscopy on 04/20 as patient was requiring 10 L of oxygen and saturating 91-92 -Currently on VC tidal volume- ABG on 7.5 030//24 on 60% FiO2 -Successful weaning trial-we will try to extubate her to high flow nasal cannula today - CT chest today Showed Diffuse hazy groundglass infiltrates throughout both lungs in a perihilar distribution suspicious for pneumonitis including viral pneumonia. Trace pleural fluid with compressive atelectasis in the lung bases. -Diffuse GGO's concerning for ARDS secondary to pneumonia/intra-abdominal infection versus COVID or viral pneumonia - Patient is placed in isolation and rapid covid sent is negative. COVID PCR negative -MICHELLE drain cultures growing staph/yeast-awaiting final cultures - Subclavian line removed 04/21 and PICC line placed - No more fever spikes since morning and WBC trending down - on imipenem, vancomycin covered adequately for HAP/VAP and added doxy for? Tickborne illness -DC Levaquin today - On antifungal coverage after sending for fungal cultures -on micafungin - IRMA resolved- monitor I & O and try to keep negative balance to facilitate extubation #COPD #Chronic current smoker-1 pack/day for more than 30 years -Need PFTs as outpatient -told never used any inhalers before intubation -Continue DuoNeb nebulizations every 6 hour scheduled Overall prognosis -guarded Seems like responding to antibiotic/antifungal coverage and clinically improving COVID PCR negative and final cultures from MICHELLE drain are pending Currently covered with Vancomycin/imipenem/Micafungin/doxycycline Recommendations conveyed to Dr. Harper hospitalist Attestations Medical Necessity Statement*: Acute hypoxic respiratory failure requiring mechanical ventilation-evaluation for extubation Time Spent in Patient Care: 16 - 35 minutes (>than 50% of time spent in counselling and/or direct pt care on unit). 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
[2020-04-24] MEDS: pantoprazole 40 mg SDV IVP (14:30)
[2020-04-24] MEDS: ALPRAZolam 0.5 mg Tablet PO ×2 (14:33→21:43)
[2020-04-24 16:07] LABS: P190 BCR ALB1 Not Detected; P210 BCR ALB1 Not Detected; Prior Results Not Given
--- NOTE | 2020-04-24 16:17 | PC.NURSE ---
EXTUBATED TO HIGH FLOW OXYGEN @1000. TOLERATING WELL. INCENTIVE SPIROMETER ENCOURAGED & DONE. SAT UP IN CHAIR FOR APPROXIMATELY 3 HOURS. DRESSING CHANGE TOLERATED, DR GARRIDO NOTIFIED OF DRAINAGE FROM INCISION
[2020-04-24] MEDS: enoxaparin 40 mg/0.4 mL Syringe SUBCUT (17:37)
[2020-04-25] VITALS (20 sets, daily range): BP systolic 112–142; BP diastolic 52–73; PULSE 66–85; RESP 16–24; TEMP 36.3–37.2; O2SAT 94–100
[2020-04-25] MEDS: dextrose 5% 1,000 ML 50 ML IV (01:06)
[2020-04-25] MEDS: ipratropium-albuterol 3 mL Neb INHALATION ×4 (02:22→20:05)
[2020-04-25 04:17] LABS: Basophils % 0.1 %; Hematocrit 29.2 % (37.0-47.0); Hemoglobin 8.6 g/dL (11.5-15.3); Lymphocytes # 1.5 10^3/uL (0.8-4.8); Lymphocytes % 6.8 %; Mean Corpuscular HGB Conc 29.5 g/dL (30.0-36.0); Mean Corpuscular Hemoglobin 28.4 pg (28.0-34.0); Mean Corpuscular Volume 96.4 fL (81-99); Mean Platelet Volume 10.8 fL (7.4-10.4); Monocytes # 1.1 10^3/uL (0.2-0.9); Monocytes % 5.2 %; Neutrophils # 18.63 10^3/uL (1.8-7.7); Neutrophils % 86.8 %; Nucleated Red Blood Cells % 0 %; Platelet Count 156 10^3/cmm (130-400); Red Blood Count 3.03 10^6/uL (4.1-5.3); Red Cell Distribution Width 17.1 % (12.1-15.1); White Blood Count 21.5 10^3/uL (4.0-10.0)
[2020-04-25 04:36] LABS: Alanine Aminotransferase 39 U/L (0-33); Albumin Level 2.5 g/dL (3.5-5.2); Alkaline Phosphatase 133 IU/L (35-105); Anion Gap 12.4 (5-19); Aspartate Amino Transferase 51 U/L (0-32); Blood Urea Nitrogen 33 mg/dL (6-20); Calcium 8.1 mg/dL (8.5-10.5); Carbon Dioxide 22 mmol/L (22-29); Chloride 109 mmol/L (98-107); Globulin 2.9 g/dL (1.3-4.6); Glomerular Filtration Rate 87.5 mL/min (90-130); Glucose 84 mg/dL (65-115); Magnesium 1.4 mg/dL (1.7-2.3); Osmolality Calculated 286 mOsm/kg (285-295); Potassium 3.4 mmol/L (3.5-5.1); Sodium 140 mmol/L (136-145); Total Bilirubin 0.7 mg/dL (0.15-1.2); Total Protein 5.4 g/dL (6.6-8.7)
[2020-04-25] MEDS: doxycycline 100 MG in dextrose 5 % 100 ML IV ×2 (04:43→17:37)
--- NOTE | 2020-04-25 07:41 | PM.PN ---
Subjective Subjective: Interval history: feels better, on high flow nasal oxygen. is eating, has BM, dec abd tenderness. less sob. Medications: Reviewed: Yes Medication Review Details: Current Medications Acetaminophen (Tylenol Liquid) 650 mg PO Q4H PRN PRN Reason: MILD PAIN OR INCREASE TEMP Last Admin: 04/21/20 21:41 Dose: 650 mg Documented by: Albuterol/Ipratropium (Duoneb) 3 ml INHALATION Q6H.RESPIRATORY BRITTNEY Last Admin: 04/25/20 02:22 Dose: 3 ml Documented by: Alprazolam (Xanax) 0.5 mg PO TID PRN PRN Reason: ANXIETY Last Admin: 04/24/20 21:43 Dose: 0.5 mg Documented by: Budesonide (Pulmicort) 0.5 mg INHALATION BID.RESPIRATORY BRITTNEY Last Admin: 04/24/20 21:33 Dose: 0.5 mg Documented by: Enoxaparin Sodium (Lovenox) 40 mg SUBCUT Q24H BRITTNEY Last Admin: 04/24/20 17:37 Dose: 40 mg Documented by: Hydralazine HCl (Apresoline) 10 mg IVP Q4H PRN PRN Reason: Systolic blood pressure greater than 180, diastolic greater than 100 Last Admin: 04/23/20 23:47 Dose: 10 mg Documented by: Norepinephrine Bitartrate 4 mg (/ Dextrose) 254 mls @ 0 mls/hr IV .Q0M BRITTNEY; Protocol Last Titration: 04/18/20 07:00 Dose: Infused Documented by: Norepinephrine Bitartrate 8 mg (/ Dextrose) 508 mls @ 0 mls/hr IV .Q0M BRITTNEY; Protocol Last Titration: 04/18/20 14:15 Dose: Infused Documented by: Dextrose (D5w) 1,000 mls @ 50 mls/hr IV .Q20H BRITTNEY Last Infusion: 04/25/20 06:45 Dose: 50 mls/hr Documented by: Acetaminophen (Ofirmev) 1,000 mg in 100 mls @ 400 mls/hr IV Q8H PRN PRN Reason: FEVER >100.4 Last Infusion: 04/22/20 10:30 Dose: Infused Documented by: Dexmedetomidine HCl 400 mcg/ (Sodium Chloride) 104 mls @ 0 mls/hr IV .Q0M BRITTNEY; Protocol Last Titration: 04/24/20 06:25 Dose: 0 mcg/kg/hr, 0 mls/hr Documented by: Imipenem/Cilastatin Sodium 500 (mg/ Dextrose) 100 mls @ 200 mls/hr IV Q6H BRITTNEY; Protocol Last Infusion: 04/25/20 06:45 Dose: Infused Documented by: Caspofungin 50 mg/ Sodium (Chloride) 250 mls @ 250 mls/hr IV Q24H BRITTNEY Last Infusion: 04/24/20 17:38 Dose: Infused Documented by: Doxycycline Hyclate 100 mg/ (Dextrose) 100 mls @ 100 mls/hr IV Q12H BRITTNEY; Protocol Last Infusion: 04/25/20 05:45 Dose: Infused Documented by: Vancomycin HCl 1,000 mg/ (Dextrose) 250 mls @ 250 mls/hr IV Q18H BRITTNEY; Protocol Last Infusion: 04/25/20 02:37 Dose: Infused Documented by: Pantoprazole Sodium (Protonix) 40 mg IVP DAILY BRITTNEY Last Admin: 04/24/20 14:30 Dose: 40 mg Documented by: Vitals/I&O/Wt Last Vital Signs Temp 98.4 F 04/25/20 04:24 Pulse 66 04/25/20 06:15 Resp 16 04/25/20 06:15 BP 142/68 04/25/20 06:03 Pulse Ox 97 04/25/20 06:15 04/24/20 04/25/20 04/25/20 22:59 06:59 14:59 Intake Total 870 / 1120 1787.500 / 2907.500 Output Total 980 / 980 1160 / 2140 Balance -110 / 140 627.500 / 767.500 Physical Exam Narrative: EXAM NARRATIVE: telemedicine exam performed by RN comfortable in bed w/ high flow nc 02. vss heent- nc/at, eomi, anicteric neck supple lungs- wheezes heart reg abd soft, tender, +BS ext 1+ edema neuro- a,a, o x 2 Urinary Catheter Management^: Romano: Cath Placed During This Visit: yes, but has since been removed by the nurse Reason for Continuing Indwelling Catheter: Accurate Measurement of Urinary Output in Critically Ill Patients Urinary Catheter Date of Insertion: 04/19/20 Urinary Catheter Time of Insertion: 08:51 Date Urinary Catheter Removed: 08/24/20 Time Urinary Catheter Discontinued: 08:28 Data : 04/25/20 03:37 04/25/20 03:37 Micro: Microbiology 04/20/20 10:05 Gram Stain - Final Other Source Body Fluid Culture - Preliminary Jocelyn parapsilosis Staphylococcus epidermidis 04/22/20 12:53 Gram Stain - Final Other Source Body Fluid Culture - Preliminary Staphylococcus epidermidis 04/22/20 12:20 Urine Culture - Preliminary Urine Catheterized Yeast species A&P Additional A&P Information (1) Acute kidney injury, nonoliguric. CT abdomen showed anasarca - resolved (2) Hyper natremia- resolved- can d/ civf 3. hypokalemia and hypomagnesemia- replete and monitor (4) Rhabdomyolysis: resolved (5) Sepsis due to bowel perforation, -improving (6) fungal UTI on caspofungin 7. leukocytosis on vanco- monitor levels. please keep trough under 19 as renal fxn and rhabdomyolysis have improved. renal will sign off, pleasd call if we can be of assistance Attestations Medical Necessity Statement*: per hospitalist Time Spent in Patient Care: 16 - 35 minutes Procedures Arterial Line Size (Gauge): 20 Coding Level of Care Code Acute Manager Benefit for [facility]
--- NOTE | 2020-04-25 07:46 | P.PN_ITS ---
Subjective Subjective: Interval history: Surgical coverage for Dr. Villegas: Patient was extubated yesterday. She has no complaints this morning. She has been having bowel movements. Nursing reported significant serous/serosanguineous drainage from the lower portion of the patient's open incision when she gets up. Vitals/I&O/Wt Last Vital Signs Temp 98.4 F 04/25/20 04:24 Pulse 66 04/25/20 06:15 Resp 16 04/25/20 06:15 BP 142/68 04/25/20 06:03 Pulse Ox 97 04/25/20 06:15 04/24/20 04/25/20 04/25/20 22:59 06:59 14:59 Intake Total 870 / 2907.500 1787.500 / 2907.500 Output Total 980 / 2140 1160 / 2140 Balance -110 / 767.500 627.500 / 767.500 Physical Exam Narrative: EXAM NARRATIVE: All of the abdominal wounds were unpacked today. She did have some skin nico coming out at the bottom of the superior open portion of the incision and these were removed today. The wounds/subcutaneous tissue underneath appears healthy. There does not appear to be any ongoing drainage at present, but there is a small amount of serosanguineous/serous drainage on the overlying dressing this morning. Abdomen reveals the expected amount of tenderness. Urinary Catheter Management^: Romano: Cath Placed During This Visit: yes, but has since been removed by the nurse Reason for Continuing Indwelling Catheter: Accurate Measurement of Urinary Output in Critically Ill Patients Urinary Catheter Date of Insertion: 04/19/20 Urinary Catheter Time of Insertion: 08:51 Date Urinary Catheter Removed: 04/19/20 Time Urinary Catheter Discontinued: 08:28 Data : 04/25/20 03:37 04/25/20 03:37 Micro: Microbiology 04/20/20 10:05 Gram Stain - Final Other Source Body Fluid Culture - Preliminary Jocelyn parapsilosis Staphylococcus epidermidis 04/22/20 12:53 Gram Stain - Final Other Source Body Fluid Culture - Preliminary Staphylococcus epidermidis 04/22/20 12:20 Urine Culture - Preliminary Urine Catheterized Yeast species A&P Assessment and plan (1) Bowel perforation: Patient's white blood cell count remains elevated, but she is afebrile. I suspect the fluid draining from the incision that nursing has noted is third spaced fluid, and that the drains she has in place are probably sequestered at this point; I will leave these in place and let Dr. Villegas decide when he wants them out. Status: Resolved (2) Sepsis: Status: Acute Attestations Medical Necessity Statement*: See admitting service's notation. Procedures Arterial Line Size (Gauge): 20 Coding Level of Care Code Acute Director Social Welfare for [facility] Fwd Diagnoses Bowel perforation K63.1 Sepsis A41.9
--- NOTE | 2020-04-25 08:02 | P.PN_ITS ---
Subjective Subjective: Interval history: Patient denies shortness of breath or chest pain this morning. She was successfully extubated yesterday. She is today on high flow oxygen saturating in the 90s. Denies abdominal pain. Had good bowel movement which per RN was non-melanotic and had no evidence of hematochezia. Shortly later patient reports that she had another bowel movement. Her white blood cell count went up and we will check for C. difficile infection if she develops diarrhea. Patient had significant serous/serosanguineous drainage from the lower portion of the patient's open incision when she gets up. MICHELLE drains minimal. Vitals/I&O/Wt Last Vital Signs Temp 98.4 F 04/25/20 04:24 Pulse 66 04/25/20 06:15 Resp 16 04/25/20 06:15 BP 142/68 04/25/20 06:03 Pulse Ox 97 04/25/20 06:15 04/24/20 04/25/20 04/25/20 22:59 06:59 14:59 Intake Total 870 / 1120 1787.500 / 2907.500 Output Total 980 / 980 1160 / 2140 Balance -110 / 140 627.500 / 767.500 Physical Exam Const: COMMON NORMALS: no acute distress OTHER: Not in any distress. Resp: COMMON NORMALS: clear to auscultation bilaterally AUSCULTATION: clear to auscultation bilaterally OTHER: Overall decreased air movement but otherwise clear. Cardio: COMMON NORMALS: regular rate, regular rhythm and S2 normal heart sound present RATE: regular rate RHYTHM: regular rhythm HEART SOUNDS: S2 normal heart sound present OTHER: No lower extremity edema GI: COMMON NORMALS: Normal to inspection, nondistended, normoactive bowel sounds present, Soft to palpation and non-tender PALPATION: Yes Soft to palpation Neuro: COMMON NORMALS: no focal motor deficits OTHER: Alert and orientedx3. Urinary Catheter Management^: Romano: Cath Placed During This Visit: yes, but has since been removed by the nurse Reason for Continuing Indwelling Catheter: Accurate Measurement of Urinary Output in Critically Ill Patients Urinary Catheter Date of Insertion: 04/19/20 Urinary Catheter Time of Insertion: 08:51 Date Urinary Catheter Removed: 04/19/20 Time Urinary Catheter Discontinued: 08:28 Data : 04/25/20 03:37 04/25/20 03:37 Micro: Microbiology 04/20/20 10:05 Gram Stain - Final Other Source Body Fluid Culture - Preliminary Jocelyn parapsilosis Staphylococcus epidermidis 04/22/20 12:53 Gram Stain - Final Other Source Body Fluid Culture - Preliminary Staphylococcus epidermidis 04/22/20 12:20 Urine Culture - Preliminary Urine Catheterized Yeast species A&P Assessment and plan (1) Bowel perforation: Status: Resolved (2) Acute kidney injury: Prerenal initially and now appears to be renal. Acute tubular necrosis with multiple etiologies including rhabdomyolysis and hypotension. Improved. Status: Acute (3) Generalized anxiety disorder: Status: Chronic (4) Dehydration with hyponatremia: Status: Acute (5) Severe sepsis with acute organ dysfunction due to Gram negative bacteria: As exhibited by tachycardia and leukocytosis as well as elevated lactic acid. Patient had normal respiration and was afebrile. Status: Acute (6) Septic shock: Status: Resolved (7) Hypokalemia: Present admission Status: Acute (8) Liver enzyme elevation: Status: Acute (9) Rhabdomyolysis: Status: Acute (10) Shock liver: Improved Status: Acute (11) Acute anemia: GI bleed cannot be ruled out Status: Acute (12) Acute respiratory failure with hypoxia: Secondary to pneumonia. Status: Acute (13) Pneumonia: This could be hospital-acquired. Status: Acute Qualifiers: Pneumonia type: due to unspecified organism Laterality: bilateral Lung location: lower lobe of lung Qualified Code(s): J18.9 - Pneumonia, unspecified organism Additional A&P Information PLAN: We will continue current monitoring and treatment. Patient now has evidence of pneumonia. I will go ahead and restart Levaquin and continue rest of the antibiotics and caspofungin for now. Awaiting for culture results. Once WBC improves consider trimming off some of the antibiotics/antifungals. Replete potassium and magnesium. Will restart albumin for now to avoid third spacing. Advance diet as tolerated. Encouraged oral intake. Attestations Medical Necessity Statement*: Patient with significant illness including bowel perforation and pneumonia requires close ICU monitoring and treatment. 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
[2020-04-25] MEDS: budesonide 0.5 mg/2 mL Neb INHALATION ×2 (08:37→20:05)
[2020-04-25] MEDS: gabapentin 300 mg Capsule PO ×2 (09:28→17:44)
[2020-04-25] MEDS: potassium chloride ER 10 mEq Tablet 40 MEQ PO (09:29)
[2020-04-25] MEDS: pantoprazole 40 mg SDV IVP (09:35)
[2020-04-25] MEDS: levofloxacin-dextrose 5 % 750 MG/150 ML PREMIX 100 MG IV (09:45)
[2020-04-25] MEDS: magnesium sulfate premix 4 GM/100 ML PREMIX IV (09:52)
--- NOTE | 2020-04-25 10:00 | PC.SOCIAL ---
IMM Updated Page 2 of IMM updated and given to patient. Initialed, dated, and timed and placed back in chart.
[2020-04-25] MEDS: acetaminophen 650 mg/20.3 mL UDC PO (10:15)
[2020-04-25] MEDS: baclofen 10 mg Tablet PO ×2 (10:15→21:12)
--- NOTE | 2020-04-25 10:24 | PC.NURSE ---
one of the patient's ABD dressing became saturated with serous drainage. Replaced ABD.
--- NOTE | 2020-04-25 12:28 | PC.NURSE ---
patient reports a pain as a 4/10. This is reduced form 6/10 after medication. Pt states that 4/10 is acceptable to her and she doesn't desire any additional pain meds.
--- NOTE | 2020-04-25 12:52 | PC.NURSE ---
Nurse offered patient oral hygiene products and assistance with oral care if needed. Patient declined at this time, but wants to later today.
--- NOTE | 2020-04-25 16:42 | PC.NURSE ---
patients lower abd pad has become saturated with serousanginous drainage. Changed Abd pad.
[2020-04-25] MEDS: enoxaparin 40 mg/0.4 mL Syringe SUBCUT (17:47)
[2020-04-25 18:11] LABS: Oxygen Device VENT
[2020-04-25 18:38] LABS: Vancomycin Trough 11.3 ug/mL (10-15)
--- NOTE | 2020-04-25 19:24 | PC.NURSE ---
Notified [place] pharmacist of [facility] 11.3.
[2020-04-25] MEDS: fenofibrate 145 mg Tablet PO (21:12)
[2020-04-25] MEDS: atorvastatin 40 mg Tablet PO (21:12)
[2020-04-25] MEDS: trazodone 150 mg Tablet 300 MG PO (21:12)
[2020-04-26] VITALS (29 sets, daily range): BP systolic 90–132; BP diastolic 49–77; PULSE 78–116; RESP 19–35; TEMP 36.6–37.4; O2SAT 79–994
[2020-04-26] MEDS: ipratropium-albuterol 3 mL Neb INHALATION ×2 (02:39→20:31)
[2020-04-26 03:30] LABS: Basophils % 0.1 %; Eosinophils % 0.1 %; Hematocrit 27.8 % (37.0-47.0); Hemoglobin 8.2 g/dL (11.5-15.3); Lymphocytes # 1.5 10^3/uL (0.8-4.8); Lymphocytes % 7.6 %; Mean Corpuscular HGB Conc 29.5 g/dL (30.0-36.0); Mean Corpuscular Volume 98.2 fL (81-99); Monocytes # 1.1 10^3/uL (0.2-0.9); Monocytes % 5.6 %; Neutrophils # 16.68 10^3/uL (1.8-7.7); Neutrophils % 85.4 %; Nucleated Red Blood Cells % 0.1 %; Platelet Count 126 10^3/cmm (130-400); Red Blood Count 2.83 10^6/uL (4.1-5.3); Red Cell Distribution Width 16.7 % (12.1-15.1); White Blood Count 19.5 10^3/uL (4.0-10.0)
[2020-04-26 03:48] LABS: Alanine Aminotransferase 27 U/L (0-33); Albumin Level 3.2 g/dL (3.5-5.2); Alkaline Phosphatase 106 IU/L (35-105); Anion Gap 12.6 (5-19); Aspartate Amino Transferase 30 U/L (0-32); Blood Urea Nitrogen 22 mg/dL (6-20); Calcium 8.4 mg/dL (8.5-10.5); Carbon Dioxide 22 mmol/L (22-29); Chloride 109 mmol/L (98-107); Globulin 2.4 g/dL (1.3-4.6); Glomerular Filtration Rate 87.5 mL/min (90-130); Glucose 98 mg/dL (65-115); Magnesium 1.8 mg/dL (1.7-2.3); Osmolality Calculated 287 mOsm/kg (285-295); Potassium 3.6 mmol/L (3.5-5.1); Sodium 140 mmol/L (136-145); Total Bilirubin 1.3 mg/dL (0.15-1.2); Total Protein 5.6 g/dL (6.6-8.7)
[2020-04-26] MEDS: dextrose 5% 1,000 ML 50 ML IV (05:33)
[2020-04-26] MEDS: doxycycline 100 MG in dextrose 5 % 100 ML IV (05:34)
--- NOTE | 2020-04-26 05:46 | PM.PN ---
Subjective Subjective: Interval history: Patient overall is doing a whole lot better.Got extubated over the weekend and she sustained to be on 2 L of nasal cannula,continues to have bowel movements.Continues to have serous output via the laparotomy incision and through the right upper quadrant abdominal drain and sanguinous output from the left lower quadrant drain. No acute events overnight and patient has been tolerating well p.o. intake. Trending down in leukocytosis Vitals/I&O/Wt Last Vital Signs Temp 99.3 F 04/26/20 04:13 Pulse 85 04/26/20 04:13 Resp 26 H 04/26/20 04:13 BP 109/52 04/26/20 04:13 Pulse Ox 95 04/26/20 04:57 04/25/20 04/25/20 04/26/20 14:59 22:59 06:59 Intake Total 680 / 680 2136.666 / 2816.666 766.667 / 3583.333 Output Total 1050 / 1050 1245 / 2295 Balance 680 / 680 1086.666 / 1766.666 -478.333 / 1288.333 Physical Exam Narrative: EXAM NARRATIVE: Patient is conscious alert oriented X3 BMI 33 Head and neck examination PERRLA no masses no cervical lymphadenopathy no jaundice Cardiac examination audible S1-S2 no murmurs no gallops no arrhythmias Chest is clear bilateral,abscence of Rhonchi or wheezes,no surgical emphysema Abdomen nontender except at the incision site,mild to moderately distended soft no organomegaly guarding or rigidity/no signs of peritonitis. Wound bed is clean yet concern for controlled fascial dehiscence at the lower part of the incision Packing was done bedside Romano catheter in place Extremities no cyanosis no clubbing no edema Urinary Catheter Management^: Romano: Cath Placed During This Visit: yes, but has since been removed by the nurse Reason for Continuing Indwelling Catheter: Accurate Measurement of Urinary Output in Critically Ill Patients Urinary Catheter Date of Insertion: 04/19/20 Urinary Catheter Time of Insertion: 08:51 Date Urinary Catheter Removed: 04/19/20 Time Urinary Catheter Discontinued: 08:28 Data : 04/26/20 03:04 04/26/20 03:04 Micro: Microbiology 04/22/20 12:20 Urine Culture - Final Urine Catheterized Saccharomyces cerevisiae 04/20/20 10:26 Blood Culture - Final Blood NO GROWTH AFTER 5 DAYS 04/20/20 10:18 Blood Culture - Final Blood NO GROWTH AFTER 5 DAYS 04/22/20 12:53 Gram Stain - Final Other Source Body Fluid Culture - Final Staphylococcus epidermidis A&P Assessment and plan (1) Bowel perforation: Patient is a status post exploratory laparotomy for bowel perforation 04/13/2020 We will continue packing of the wound daily with dry to dry for now and I did request a wound VAC to be placed instead of packing to help maximize wound healing control the serous which is likely ascitic. Continue p.o. intake and highly recommend protein shakes 3 to 4 cans a day to optimize overall to recover from deconditioning status and maximizing wound healing. From surgical standpoint of view local wound care and emphasis on physical therapy and nutrition Continue abdominal binder. Assurance and education All questions have been answered and all concerns have been addressed to patient's satisfaction. Family updates Status: Resolved Attestations Medical Necessity Statement*: Medical necessity care is expected to cross 2 midnights Time Spent in Patient Care: (>than 50% of time spent in counselling and/or direct pt care on unit). Procedures Arterial Line Size (Gauge): 20 Coding Level of Care Code Acute Records Supervisor for [facility] Fwd Diagnoses Bowel perforation K63.1
--- NOTE | 2020-04-26 06:06 | PC.NURSE ---
0530 - Dr. Villegas to bedside, dressing to abdomen changed. Dr. Villegas requested wound vac to be placed at bedside and he will return later today to place to abdominal incision.
[2020-04-26] MEDS: levofloxacin-dextrose 5 % 750 MG/150 ML PREMIX 100 MG IV (07:36)
[2020-04-26] MEDS: gabapentin 300 mg Capsule PO ×2 (10:00→18:00)
[2020-04-26] MEDS: pantoprazole 40 mg SDV IVP (10:01)
--- NOTE | 2020-04-26 11:01 | PC.NURSE ---
called pharmacy for vancomycin
--- NOTE | 2020-04-26 12:35 | XRR_ITS ---
PROCEDURE INFORMATION: Exam: XR Chest, 1 View Exam date and time: 04/26/2020 12:57 PM Age: 54 years old Clinical indication: Device placement; Picc; Additional info: Picc line, SOB TECHNIQUE: Imaging protocol: XR of the chest Views: 1 view. COMPARISON: CT chest abd pel wo con 04/22/2020 10:57 AM FINDINGS: Lungs: Unremarkable. No consolidation. Pleural space: Unremarkable. No pleural effusion. No pneumothorax. Heart/Mediastinum: Unremarkable. No cardiomegaly. Bones/joints: Unremarkable. A PICC line is present on the right side extending into the SVC XR/XR chest 1V portable [id number] IMPRESSION: No acute findings. Right side PICC line in good position
[2020-04-26] MEDS: baclofen 10 mg Tablet PO (12:47)
--- NOTE | 2020-04-26 13:04 | PM.CONSULT ---
Providers/Reason For Consult Consulting Physican/Specialty*: Jailene Meza MD/Infectious Disease Reason for Consult*: antibiotics management Attending Physician: Navi Desir MD History of Present Illness History of Present Illness Irma Jones is a 54 year old female admitted on 04/13 after p/w abdominal pain lasting one week and was found to have perforated viscus, florid peritonitis, in septic shock on presentation. Then underwent Exploratory laparotomy Peritoneal lavage, Lysis of omental adhesions encasing different compartmental intra-abdominal abscesses. Post operatively she has been on cefepime/vanc---> changed to impenem/vanc/doxycycline/levaquin and casopfungin during course of admission for persisting sepsis. Over the weekend now she was able to be extubated, has since been titrated off pressors. Hospital course notable for B/L chest imfiltrates for which she underwent bronchoscopy due to concern for VAP, however overall w/up remained unrevealing. Currentlyy active issues include persisting leukocytosis, wound dehisence for which patient has a wound vac. She has had interval removal of one her post op drains which had minimal output. The left side abdominal drain is still in place which has minimal bloody serous output at this time. Overlying wound vac connected to suction. last fever 102F on 04/22. Id service consulted for assistance with abx management and persisting leukocytosis Review of Systems General: Reports: 10 or more systems reviewed and unremarkable except in HPI and below Const: Denies: fever(s), chills or body aches Eyes: Denies: change in vision, blurry vision or photophobia ENMT: Reports: hoarseness; Denies: throat pain, enlarged tonsils, odynophagia or nasal congestion Card: Denies: chest pain, palpitations, irregular heart rhythm, edema, swelling of feet/ankles, lightheadedness, pre-syncope, dyspnea on exertion or orthopnea Resp: Denies: dyspnea, productive cough, non-productive cough, wheezing, stridor, pain on inspiration, change in phlegm color, hemoptysis or chest congestion GI: Denies: abdominal pain, nausea, vomiting, hematemesis, coffee ground emesis, dysphagia, heartburn, diarrhea, constipation, GI cramping, change in stool character, hematochezia or melena : Denies: flank pain, difficulty voiding, dysuria, urinary frequency, urinary urgency, urinary hesitancy or hematuria Musc: Denies: neck pain, back pain, extremity pain, joint swelling, joint warmth or deformity Neuro: Denies: headache(s), numbness in extremities, weakness in extremities, sensory changes, difficulty walking, frequent falls, dizziness, vertigo, behavioral changes, Slurred speech present or seizure-like activity Psych: Denies: anxiety, depression, suicidal ideation or homicidal ideation Endo: Denies: polyuria, polydipsia, tired all the time, cold intolerance or hot flashes Jf/Lymph: Denies: easy bruising or easy bleeding Meds/Allergies Home Medications and Allergies Home Medications Medication Instructions Recorded Confirmed Last Taken Type esomeprazole magnesium 40 mg 40 mg PO QDAY 09/17/19 04/14/20 04/13/20 History capsule,delayed release hydrochlorothiazide 12.5 mg tablet 12.5 mg PO DAILY 09/17/19 04/14/20 Unknown History lovastatin 20 mg tablet 40 mg PO BEDTIME 09/17/19 04/14/20 Unknown History ondansetron HCl 4 mg tablet 4 mg PO Q8H PRN tab 09/17/19 04/14/20 Unknown History valsartan 80 mg tablet 80 mg PO QDAY 09/17/19 04/13/20 Unknown History baclofen 10 mg tablet 10 mg PO TID PRN 11/25/19 04/14/20 Unknown History gabapentin 300 mg capsule 300 mg PO BID #60 cap 11/25/19 04/14/20 Unknown Rx tizanidine 4 mg tablet 4 mg PO BID PRN #60 tab MDD 2 11/25/19 04/13/20 Unknown Rx alprazolam 1 mg tablet 1 mg PO TID PRN #90 tab 01/05/20 04/14/20 Unknown Rx citalopram 40 mg tablet 40 mg PO .morning #30 tab 01/05/20 04/14/20 Unknown Rx hydroxyzine HCl 50 mg tablet 50 mg PO BID PRN #60 tab 01/05/20 04/14/20 Unknown Rx atorvastatin 40 mg PO BEDTIME 04/14/20 04/14/20 Unknown History fenofibrate 145 mg PO BEDTIME 04/14/20 04/14/20 Unknown History potassium chloride 20 meq PO BID 04/14/20 04/14/20 Unknown History trazodone 300 mg PO .bedtime PRN 04/14/20 04/14/20 Unknown History Allergies Allergy/AdvReac Type Severity Reaction Status Date / Time codeine Allergy Unknown rash, Verified 04/13/20 21:43 itching Penicillins Allergy Unknown rash, Verified 04/13/20 21:43 itching Sulfa (Sulfonamide Allergy Unknown rash, Verified 04/13/20 21:43 Antibiotics) itching Current Medications Current Medications Generic Name Dose Route Start Last Admin Trade Name Freq PRN Reason Stop Dose Admin Acetaminophen 650 mg 04/21/20 00:24 04/25/20 10:15 Tylenol Liquid PO 650 mg Q4H PRN Administration MILD PAIN OR INCREASE TEMP Albuterol/Ipratropium 3 ml 04/15/20 09:00 04/26/20 02:39 Duoneb INHALATION 3 ml Q6H.RESPIRATORY BRITTNEY Administration Alprazolam 1 mg 04/25/20 09:12 04/26/20 10:00 Xanax PO 1 mg TID PRN Administration ANXIETY Atorvastatin Calcium 40 mg 04/25/20 21:00 04/25/20 21:12 Lipitor PO 40 mg BEDTIME BRITTNEY Administration Baclofen 10 mg 04/25/20 07:55 04/26/20 12:47 Lioresal PO 10 mg TID PRN Administration Spasms Budesonide 0.5 mg 04/15/20 08:00 04/25/20 20:05 Pulmicort INHALATION 0.5 mg BID.RESPIRATORY BRITTNEY Administration Enoxaparin Sodium 40 mg 04/20/20 18:00 04/25/20 17:47 Lovenox SUBCUT 40 mg Q24H BRITTNEY Administration Fenofibrate 145 mg 04/25/20 21:00 04/25/20 21:12 Tricor PO 145 mg BEDTIME BRITTNEY Administration Gabapentin 300 mg 04/25/20 09:00 04/26/20 10:00 Neurontin PO 300 mg BID BRITTNEY Administration Hydralazine HCl 10 mg 04/20/20 02:19 04/23/20 23:47 Apresoline IVP 10 mg Q4H PRN Administration Systolic blood pressure greater than 180, diastolic greater than 100 Dextrose 1,000 mls @ 50 mls/hr 04/20/20 17:30 04/26/20 05:34 D5w IV 0 mls/hr .Q20H BRITTNEY Infusion Acetaminophen 1,000 mg in 100 mls @ 400 mls/hr 04/21/20 14:16 04/22/20 10:30 Ofirmev IV Infused Q8H PRN Infusion FEVER >100.4 Imipenem/Cilastatin Sodium 500 100 mls @ 200 mls/hr 04/22/20 12:30 04/26/20 06:31 mg/ Dextrose IV 200 mls/hr Q6H BRITTNEY Administration Protocol Caspofungin 50 mg/ Sodium 250 mls @ 250 mls/hr 04/23/20 15:30 04/25/20 17:12 Chloride IV Infused Q24H BRITTNEY Infusion Vancomycin HCl 1,000 mg/ 250 mls @ 250 mls/hr 04/26/20 11:00 04/26/20 12:39 Dextrose IV 250 mls/hr Q12H BRITTNEY Administration Protocol Pantoprazole Sodium 40 mg 04/15/20 09:00 04/26/20 10:01 Protonix IVP 40 mg DAILY BRITTNEY Administration Trazodone HCl 300 mg 04/25/20 07:58 04/25/20 21:12 Desyrel PO 300 mg BEDTIME PRN Administration Sleep PFSH Acute PFSH: Medical History Generalized anxiety disorder 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, recurrent severe without psychotic features Nicotine dependence, cigarettes, uncomplicated Surgical History H/O of hysterectomy with bilateral oophorectomy Family History Mother CHF (congestive heart failure) Social History Smoking and tobacco status: current every day smoker cigarettes Packs smoked per day: 1 Alcohol intake: current Alcohol intake frequency: few times a month Household members: family Marital status: Current occupational status: unemployed History of recent travel: No Vitals/I&O/Wt Last Vital Signs Temp 98.4 F 04/26/20 08:00 Pulse 101 H 04/26/20 12:00 Resp 20 H 04/26/20 12:00 BP 121/56 04/26/20 12:00 Pulse Ox 79 L 04/26/20 12:00 04/25/20 04/26/20 04/26/20 22:59 06:59 14:59 Intake Total 2136.666 / 2816.666 866.667 / 3683.333 440 / 440 Output Total 1050 / 1050 1245 / 2295 Balance 1086.666 / 1766.666 -378.333 / 1388.333 440 / 440 Physical Exam Narrative: EXAM NARRATIVE: GEN: Awake, alert and oriented, no acute distress CVS: S1S2 N RS: CTA B/L except at lung bases, likely 2/2 atelactasis Abd: Soft, distended, ex lap midline incision over abdomen, nico over upper part, mid to lower part of incision closed with wound vac, surrounding dehiscence noted. LLQ MICHELLE drain in place with 20 cc bloody serosanginous output. TABLEAU REPORT DEVELOPER: no focal neuro deficits Lines: right arm picc line Urinary Catheter Management^: Romano: Cath Placed During This Visit: yes, but has since been removed by the nurse Reason for Continuing Indwelling Catheter: Accurate Measurement of Urinary Output in Critically Ill Patients Urinary Catheter Date of Insertion: 04/19/20 Urinary Catheter Time of Insertion: 08:51 Date Urinary Catheter Removed: 04/19/20 Time Urinary Catheter Discontinued: 08:28 Data Labs: Other Labs: blood cx 04/14: CoNs 08/30 blood cx 04/20: NGTD OR cx from ex lap: none available 04/20: BAL cx: upper respiratory Josefa 04/20: MICHELLE drain culture : Jocelyn parapsilosis and staph epidermidis 04/22: MICHELLE drain cx: staph epidermidis 04/21: catheter tip culture from CVC : NGTD 04/22: urine cx : saccharomyces Micro: Micro: Microbiology 04/22/20 12:20 Urine Culture - Fi nal Urine Catheterize d Saccharomyces c erevisiae 04/20/20 10:26 Blood Culture - Fi nal Blood NO GROWTH AFTER 5 DAYS 04/20/20 10:18 Blood Culture - Fi nal Blood NO GROWTH AFTER 5 DAYS 04/22/20 12:53 Gram Stain - Final Other Source Body Fluid Culture - Final Staphylococcus epidermidis Imaging^: CT Abd/Pel: Radiologist's impression: 04/13 upon admission: IMPRESSION: 1. Evidence of bowel perforation with reactive enteritis, peritonitis and developing abscess formation in the pelvis, as described above. Query underlying perforated sigmoid diverticulitis. 04/18: CT abdomen pelvis wo con [id number] IMPRESSION: Interval laparotomy with packed open anterior abdominal incision. Air-filled nondilated colon from the cecum through the splenic flexure presumably related to slight ileus. Enteric tube ends in the stomach. Slight thickening of the distal small bowel wall fairly nonspecific. No pneumoperitoneum. Small amount of free fluid in the deep pelvis as well as some fluid overlying the dome of the liver interposed between the liver and the diaphragm. Whether or not this is infected fluid is uncertain. Generalized third spacing of fluid. Please correlate for possible sepsis. Patchy residual contrast retention in both kidneys without the administration of new iodinated contrast. Highly suspect this patient has underlying contrast-induced nephropathy with possible subsequent renal failure. Supervisor Grounds consultation recommended. No demarcated fluid collection is a suggest a site of drainable abscess identified. Interval development of bibasilar infiltrates. Question atelectasis versus pneumonia. 04/22: IMPRESSION: 1. Diffuse hazy groundglass infiltrates throughout both lungs in a perihilar distribution suspicious for pneumonitis including viral pneumonia. Trace pleural fluid with compressive atelectasis in the lung bases. 2. Postoperative changes laparotomy with open anterior abdominal wall incision. 3. Diffuse body wall anasarca and mesenteric edema slightly improved from previous. 4. No evidence of new drainable fluid collection or abscess in the abdomen or pelvis. Stable surgical drains. 5. Again seen are findings of adynamic ileus with air-fluid levels in slightly distended loops of small and large bowel with persistent air in the colon. No evidence of high-grade obstruction. 6. Romano catheter in place. 7. Enteric tube in the stomach. CXR: Radiologist's impression: 04/14: left atelactasis 04/17: IMPRESSION: Supporting devices appear to be in satisfactory position. Worsening infiltrate in the left lung. Most prominent left retrocardiac lung base position. Minimal patchy infiltrate right lung base. 04/20: Bilateral hazy pulmonary opacities are nonspecific and may represent pulmonary edema. Pneumonia cannot be excluded. 04/26: IMPRESSION: No acute findings. Right side PICC line in good position A&P Assessment and plan (1) Acute respiratory failure with hypoxia: Status: Acute (2) COPD (chronic obstructive pulmonary disease): Status: Acute Qualifiers: COPD type: unspecified COPD Qualified Code(s): J44.9 - Chronic obstructive pulmonary disease, unspecified (3) Bilateral pulmonary infiltrates on chest x-ray: Status: Acute (4) Leukocytosis, unspecified: Status: Acute Qualifiers: Leukocytosis type: leukemoid reaction Qualified Code(s): D72.823 - Leukemoid reaction (5) Shock liver: Status: Acute (6) Septic shock: Status: Resolved (7) Bowel perforation: Status: Resolved (8) Major depressive disorder, recurrent severe without psychotic features: Status: Chronic (9) Peritonitis (acute) generalized: Status: Acute Additional A&P Information Patient is a 54-year-old lady who presented on April 13 with chief complaint of abdominal pain nausea vomiting, found to be in septic shock with evidence of perforated diverticulitis with resultant peritonitis. Status post emergent exploratory laparotomy with peritoneal lavage, lysis of omental adhesions encasing different compartmental intra-abdominal abscesses, Intra-op findings with frozen pelvis with sigmoid colon stuck to the lateral pelvic wall, pockets of pus between small bowel loops and different compartments of the abdominal cavity was appreciated. She has been on extensive broad spectrum coverage abx therapy. Unfortunately no intraoperative cultures are available. Hospital course has been notable for intermittent high-grade fevers, now resolved since April 22. Septic shock is also since resolved. Current active issues include wound dehiscence and persisting leukocytosis. # Persistent leukocytosis Patient continues to have persistent leukocytosis, though other parameters appear to be improving. Septic shock is now resolved. Fevers are also now resolved. While this is certainly possible that this could be reactive leukocytosis that is lagging behind clinical recovery, if continues to increase or associated with further spikes of fever, cannot exclude persistent abdominal sources. On the most recent CAT scan and no discrete focal abscess was identified. Intra-Op findings with diffuse findings of small intra-abdominal abscesses which may not be that apparent on noncontrast studies. Would have a low threshold for repeat imaging in case of clinical worsening. Sent blood cultures with a.m. labs. Thus far blood culture has remained negative, however last blood culture is available from the . Further possibility of persisting leukocytosis include wound dehiscence and infection. Continue coverage with broad-spectrum antibiotics with imipenem and vancomycin for now. When undergoing wound VAC change and/or procedures in the OR, would be prudent to send deep wound cultures and abdominal cultures. No added advantage to repeating MICHELLE drain cultures as this is likely to represent contaminants such as staph epidermidis which are seen currently. MICHELLE drain cultures as of admission also with Jocelyn per oxalosis. Due to viscus perforation, TPN, central line in place and septic shock, patient was at high risk of candidemia for which caspofungin was started. This may be discontinued and switched to p.o. fluconazole as most isolates of Jocelyn parapsilosis are fluconazole susceptible. Additional susceptibility testing has been requested from the micro lab. CT images of the chest were personally reviewed, findings appear to be most consistent with bilateral infiltrates more consistent with pulmonary edema rather than any gross consolidation or pneumonia. Do not believe this to be the source at this present time. Wound care to continue per surgery. Based on clinical course and further surgical plans, will attempt to de-escalate antibiotics Consult Attestations Medical Necessity Statement: Intra-abdominal sepsis, need for IV antibiotics, close monitoring Procedures Arterial Line Size (Gauge): 20 Coding Level of Care Code Acute Upper Extremity Surgeon for [facility] Fwd Diagnoses Acute respiratory failure with hypoxia J96.01 COPD (chronic obstructive pulmonary disease) J44.9 COPD type: unspecified COPD Bilateral pulmonary infiltrates on chest x-ray R91.8 Leukocytosis, unspecified D72.823 Leukocytosis type: leukemoid reaction Shock liver K72.00 Septic shock A41.9; R65.21 Bowel perforation K63.1 Major depressive disorder, recurrent severe without psychotic features F33.2 Peritonitis (acute) generalized K65.0
[2020-04-26 13:56] LABS: Procalcitonin 0.21 ng/mL (0-0.5)
[2020-04-26] MEDS: morphine 4 mg/mL SDV 1 mL 2 MG IVP (14:51)
--- NOTE | 2020-04-26 15:07 | PM.ACPR ---
Procedure/Consent Time out: Time Out Performed: Yes Procedure Narrative: Wound VAC application Preprocedure diagnosis abdominal wound status post exploratory laparotomy Postprocedure diagnosis the same Measurements of the wound: 20 x 5 x [address] to the fascial layer Procedure done wound VAC application.Three pieces of black foam placed in the wound after removal few skin nico, that was preceded by prepping the skin with alcohol.Placement of the layers coming with the wound VAC accordingly. Tubing connected and the wound VAC was powered on. Pressure initiated 125 mmHg continuous and there was no evidence of leak. Patient tolerated the procedure well without complication I was present for the whole entire procedure Acute Procedures Arterial Line: Size (Gauge): 20 Epistaxis Control: Time out performed: Yes
--- NOTE | 2020-04-26 16:04 | PC.NURSE ---
Wound vac placed per Dr Oviedo without difficulty. drain sponge also placed around valeria drains.
--- NOTE | 2020-04-26 17:07 | P.PN_ITS ---
Subjective Subjective: Interval history: No acute events overnight. On examination patient sitting in chair. Denies of any nausea, vomiting, headache. She is able to tolerate diet well. On examination patient's heart rate is 90 bpm, blood pressure 121/65 MAG with saturation of 92% on room air. She is not on any inotropes. Patient states she is feeling well. Urine in euro bag is pink in c olor but has passed around 600 cc in last 6 hours. Medications: Reviewed: Yes Vitals/I&O/Wt Last Vital Signs Temp 98.1 F 04/26/20 16:00 Pulse 90 04/26/20 16:00 Resp 25 H 04/26/20 16:00 BP 121/65 04/26/20 16:00 Pulse Ox 90 04/26/20 16:00 04/26/20 04/26/20 04/26/20 06:59 14:59 22:59 Intake Total 866.667 / 3683.333 540 / 540 Output Total 1245 / 2295 Balance -378.333 / 1388.333 540 / 540 Physical Exam Narrative: EXAM NARRATIVE: General: No acute distress, AO x3 HEENT: PERRLA, pupils bilaterally equal and reactive Chest: Normal vesicular breath sounds, no added sounds, equal good air entry bilaterally CVS: S1-S2 regular, no murmurs, no tachycardia, no gallops, no rubs Abdomen: Soft, nontender except at the incision site, moderately distended abdomen, no rigidity, possible dehiscence of the lower part of the incision,bowel sounds present but sluggish Neuro: No focal deficits, no facial deformity, AO x3, power 5/5 in all limbs Urinary Catheter Management^: Romano: Cath Placed During This Visit: yes, but has since been removed by the nurse Reason for Continuing Indwelling Catheter: Accurate Measurement of Urinary Output in Critically Ill Patients Urinary Catheter Date of Insertion: 04/19/20 Urinary Catheter Time of Insertion: 08:51 Date Urinary Catheter Removed: 04/19/20 Time Urinary Catheter Discontinued: 08:28 Data : 04/26/20 03:04 04/26/20 03:04 Micro: Microbiology 04/22/20 12:20 Urine Culture - Final Urine Catheterized Saccharomyces cerevisiae 04/20/20 10:26 Blood Culture - Final Blood NO GROWTH AFTER 5 DAYS A&P Assessment and plan (1) Bowel perforation: Status: Resolved (2) Septic shock: Status: Resolved (3) Acute kidney injury: Prerenal initially and now appears to be renal. Acute tubular necrosis with multiple etiologies including rhabdomyolysis and hypotension. Improved. Status: Acute (4) Generalized anxiety disorder: Status: Chronic (5) Dehydration with hyponatremia: Status: Acute (6) Hypokalemia: Present admission Status: Acute (7) Liver enzyme elevation: Status: Acute (8) Rhabdomyolysis: Status: Acute (9) Shock liver: Improved Status: Acute (10) Acute anemia: GI bleed cannot be ruled out Status: Acute (11) Acute respiratory failure with hypoxia: Secondary to pneumonia. Status: Acute (12) Pneumonia: This could be hospital-acquired. Status: Acute Qualifiers: Laterality: bilateral Lung location: lower lobe of lung Pneumonia type: due to unspecified organism Qualified Code(s): J18.9 - Pneumonia, unspecified organism Additional A&P Information Bowel perforation: Post exploratory laparotomy for bowel perforation on March 27. Advance diet, management of drain, wound VAC, anticoagulation as per Dr. Villegas. Case discussed with Dr. Villegas. Septic shock: Resolved, acute respiratory failure with hypoxia requiring intuba tion: Resolved. Keep saturation over 90%, mean arterial pressure over 65 mmHg. Monitor urine output. For now continue with Romano catheterization. At present patient is on vancomycin, imipenem, caspofungin, Levaquin, doxycycline. Patient has been on these antibiotics for multiple days now. We will start de-escalating antibiotics. Stop Levaquin, doxycycline. Most likely patient does not require imipenem as well as none of her cultures have grown any gram-negative. Blood cultures have remained negative. Wound cultures only positive for staph epidermidis and Jocelyn. We will consult infectious disease. White count trending down. We will plan for abdominal imaging in next 2 to 3 days to rule out any collection. Last CT scan done 3 days ago reviewed. Anemia: Most likely because of postoperative status. Monitor hemoglobin. Check iron panel. Will start on iron supplementation accordingly. Hypertension: Goal blood pressure less than 140/90 mmHg. Hold off on antihypertensives for now. Continue with chronic home medications like statin, Xanax, fenofibrate, gabapentin, Vistaril, trazodone. We will replete electrolytes accordingly. We will try to keep potassium around 4 with magnesium over 2. Full code. SCDs for DVT prophylaxis. Soft mechanical diet. Attestations Medical Necessity Statement*: Bowel perforation, resolving septic shock post exploratory laparotomy Time Spent in Patient Care: Greater than 35 minutes (>than 50% of time spent in counselling and/or direct pt care on unit) . 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
[2020-04-26] MEDS: enoxaparin 40 mg/0.4 mL Syringe SUBCUT (17:59)
[2020-04-26] MEDS: atorvastatin 40 mg Tablet PO (20:23)
[2020-04-26] MEDS: fenofibrate 145 mg Tablet PO (20:23)
[2020-04-26] MEDS: budesonide 0.5 mg/2 mL Neb INHALATION (20:31)
[2020-04-26 23:40] LABS: Iron 16 ug/dL (37-145); Percent Saturation 17.5 % (20-50); Total Iron Binding Capacity 91 mcg/dl; Unsaturated Iron Binding 75 ug/dL (112-347)
[2020-04-27] VITALS (32 sets, daily range): BP systolic 101–128; BP diastolic 48–87; PULSE 75–104; RESP 13–33; TEMP 36.4–37.1; O2SAT 81–100
[2020-04-27] MEDS: ipratropium-albuterol 3 mL Neb INHALATION ×4 (03:05→21:34)
--- NOTE | 2020-04-27 04:29 | PC.NURSE ---
drainage appeared purlunet with serosangenous
[2020-04-27 05:01] LABS: Alanine Aminotransferase 24 U/L (0-33); Albumin Level 2.9 g/dL (3.5-5.2); Alkaline Phosphatase 102 IU/L (35-105); Blood Urea Nitrogen 15 mg/dL (6-20); Calcium 7.8 mg/dL (8.5-10.5); Carbon Dioxide 19 mmol/L (22-29); Chloride 107 mmol/L (98-107); Globulin 2.6 g/dL (1.3-4.6); Glomerular Filtration Rate 129.1 mL/min (90-130); Glucose 116 mg/dL (65-115); Osmolality Calculated 287 mOsm/kg (285-295); Sodium 140 mmol/L (136-145); Total Bilirubin 1.3 mg/dL (0.15-1.2); Total Protein 5.5 g/dL (6.6-8.7)
[2020-04-27 05:03] LABS: Aspartate Amino Transferase 32 U/L (0-32)
[2020-04-27 05:39] LABS: Basophils % 0.1 %; Eosinophils # 0.1 10^3/uL (0.0-0.8); Eosinophils % 0.2 %; Hematocrit 26.2 % (37.0-47.0); Hemoglobin 8.1 g/dL (11.5-15.3); Lymphocytes # 1.5 10^3/uL (0.8-4.8); Lymphocytes % 6.4 %; Mean Corpuscular HGB Conc 30.9 g/dL (30.0-36.0); Mean Corpuscular Hemoglobin 29.1 pg (28.0-34.0); Mean Corpuscular Volume 94.2 fL (81-99); Mean Platelet Volume 10.4 fL (7.4-10.4); Monocytes # 1.3 10^3/uL (0.2-0.9); Monocytes % 5.7 %; Neutrophils # 19.76 10^3/uL (1.8-7.7); Neutrophils % 86.6 %; Nucleated Red Blood Cells % 0 %; Platelet Count 139 10^3/cmm (130-400); Red Blood Count 2.78 10^6/uL (4.1-5.3); Red Cell Distribution Width 16.3 % (12.1-15.1); White Blood Count 22.8 10^3/uL (4.0-10.0)
--- NOTE | 2020-04-27 05:59 | P.PN_ITS ---
Subjective Subjective: Interval history: Patient seems to be doing better today and continues to pass gas and having bowel movements. Wound VAC was applied to the abdominal wound by me yesterday evening. Per nursing report patient developed a skin break towards the left perianal area. Serous drainage appreciated around both drains. Wound VAC seems to be doing well and containing the abdominal wall drainage. Vitals/I&O/Wt Last Vital Signs Temp 98.3 F 04/27/20 04:00 Pulse 91 04/27/20 04:00 Resp 33 H 04/27/20 04:00 BP 128/67 04/27/20 04:00 Pulse Ox 95 04/27/20 04:00 04/26/20 04/26/20 04/27/20 14:59 22:59 06:59 Intake Total 890 / 890 420 / 1310 100 / 1410 Output Total 1400 / 1400 1240 / 2640 Balance 890 / 890 -980 / -90 -1140 / -1230 Physical Exam Narrative: EXAM NARRATIVE: Patient is conscious alert oriented X3 BMI 33.2 Head and neck examination PERRLA no masses no cervical lymphadenopathy no jaundice Cardiac examination audible S1-S2 no murmurs no gallops no arrhythmias Chest is clear bilateral,abscence of Rhonchi or wheezes,no surgical emphysema Abdomen nontender moderate distended soft no organomegaly guarding or rigidity/no signs of peritonitis Right upper quadrant drain showing serous output and left lower drain shows sanguinous output Wound VAC in place without complication Perianal examination was done in the presence of 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 Romano catheter in place Extremities no cyanosis no clubbing no edema Urinary Catheter Management^: Romano: Cath Placed During This Visit: yes, but has since been removed by the nurse Reason for Continuing Indwelling Catheter: Accurate Measurement of Urinary Output in Critically Ill Patients Urinary Catheter Date of Insertion: 04/19/20 Urinary Catheter Time of Insertion: 08:51 Date Urinary Catheter Removed: 04/19/20 Time Urinary Catheter Discontinued: 08:28 Data : 04/27/20 05:30 04/27/20 04:00 A&P Assessment and plan (1) Bowel perforation: 6 AM Patient is a status post exploratory laparotomy for bowel perforation 04/13/2020 Optimize nutrition by adding protein shakes 3 to 4 cans a day Continue wound VAC therapy Plan to DC right abdominal drain today and send the tip for culture Turning and repositioning patient in bed every 2 hours and I would highly recommend to get an air mattress to prevent further any potential breakdown. Hydrofera Blue to be applied daily at the site of the left perianal area Continue physical therapy Assurance and education All questions have been answered and all concerns have been addressed to patient's satisfaction. Family updates Status: Resolved Attestations Medical Necessity Statement*: Medical necessity care is expected to cross 2 midnights Time Spent in Patient Care: (>than 50% of time spent in counselling and/or direct pt care on unit) . 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
[2020-04-27] MEDS: dextrose 5% 1,000 ML 50 ML IV (06:01)
[2020-04-27] MEDS: gabapentin 300 mg Capsule PO ×2 (08:18→18:07)
--- NOTE | 2020-04-27 08:19 | PC.NURSE ---
Nurse Observed patient in the tripod position and appearing to have difficulty breathing. Patient's oxygen saturation is 95%, respiratory rate of 16, and appearance is normal. Patient states she is anxious, nurse provided PRN anxiety medication.
[2020-04-27] MEDS: budesonide 0.5 mg/2 mL Neb INHALATION ×2 (09:05→21:34)
[2020-04-27] MEDS: pantoprazole 40 mg SDV IVP (09:22)
[2020-04-27] MEDS: HYDROcodone-acetaminophen 5-325 mg Tablet 2 TAB PO ×2 (09:25→18:05)
[2020-04-27 09:26] LABS: LAB Peripheral Smear Sent for Review
[2020-04-27] MEDS: iron sucrose 200 MG in sodium chloride 0.9% (100 ml) 100 ML 220 MG IV (10:03)
[2020-04-27] MEDS: citalopram 20 mg Tablet 40 MG PO (11:56)
[2020-04-27] MEDS: baclofen 10 mg Tablet PO (12:20)
--- NOTE | 2020-04-27 12:25 | PC.NURSE ---
patient rates back pain as a 5/10 due to a pre existing herniated discs. Requested baclofen for pain relief as that is most effective. Provided pt with 10mg baclofen prn.
--- NOTE | 2020-04-27 15:11 | PC.NURSE ---
DR THURSTON HERE TO PULL RIGHT ABDOMINAL DRAIN. TIP SENT FOR CULTURE, SPECIMEN TO LAB. PT TOLERATED WELL.
--- NOTE | 2020-04-27 16:13 | DCPLANNER ---
Pg 2 of IM updated and reviewed with pt. She was glad to hear that it's an opportunity to appeal verses a notice of non-payment. Copy provided.
--- NOTE | 2020-04-27 17:24 | PM.PN ---
Subjective Subjective: Interval history: No acute events overnight. On examination patient sitting on bedside. Complaining of feeling depressed. She still has both the MICHELLE drains. Draining 40 cc in last 24 hours / 20 cc each. Patient has remained hemodynamically stable, afebrile. Medications: Reviewed: Yes Vitals/I&O/Wt Last Vital Signs Temp 98.8 F 04/27/20 16:00 Pulse 93 04/27/20 16:00 Resp 24 H 04/27/20 16:00 BP 101/68 04/27/20 16:00 Pulse Ox 96 04/27/20 16:00 04/27/20 04/27/20 04/27/20 06:59 14:59 22:59 Intake Total 200 / 1510 1310 / 1310 350 / 1660 Output Total 1240 / 2640 530 / 530 200 / 730 Balance -1040 / -1130 780 / 780 150 / 930 Physical Exam Narrative: EXAM NARRATIVE: General: No acute distress, AO x3 HEENT: PERRLA, pupils bilaterally equal and reactive Chest: Normal vesicular breath sounds, no added sounds, equal good air entry bilaterally CVS: S1-S2 regular, no murmurs, no tachycardia, no gallops, no rubs Abdomen: Soft, nontender except at the incision site, moderately distended abdomen, no rigidity, possible dehiscence of the lower part of the incision,bowel sounds present but sluggish Neuro: No focal deficits, no facial deformity, AO x3, power 5/5 in all limbs Urinary Catheter Management^: Romano: Cath Placed During This Visit: yes, but has since been removed by the nurse Reason for Continuing Indwelling Catheter: Accurate Measurement of Urinary Output in Critically Ill Patients Urinary Catheter Date of Insertion: 04/19/20 Urinary Catheter Time of Insertion: 08:51 Date Urinary Catheter Removed: 04/19/20 Time Urinary Catheter Discontinued: 08:28 Data : 04/27/20 05:30 04/27/20 04:00 Micro: Microbiology 04/20/20 10:05 Gram Stain - Final Other Source Body Fluid Culture - Preliminary Jocelyn parapsilosis Staphylococcus epidermidis A&P Assessment and plan (1) Bowel perforation: Status: Resolved (2) Septic shock: Status: Resolved (3) Acute kidney injury: Prerenal initially and now appears to be renal. Acute tubular necrosis with multiple etiologies including rhabdomyolysis and hypotension. Improved. Status: Acute (4) Generalized anxiety disorder: Status: Chronic (5) Dehydration with hyponatremia: Status: Acute (6) Hypokalemia: Present admission Status: Acute (7) Liver enzyme elevation: Status: Acute (8) Rhabdomyolysis: Status: Acute (9) Shock liver: Improved Status: Acute (10) Acute anemia: GI bleed cannot be ruled out Status: Acute (11) Acute respiratory failure with hypoxia: Secondary to pneumonia. Status: Acute (12) Pneumonia: This could be hospital-acquired. Status: Acute Qualifiers: Pneumonia type: due to unspecified organism Laterality: bilateral Lung location: lower lobe of lung Qualified Code(s): J18.9 - Pneumonia, unspecified organism Additional A&P Information Bowel perforation: Post exploratory laparotomy for bowel perforation on April 13. Advance diet, management of drain, wound VAC, anticoagulation as per Dr. Villegas. Case discussed with Dr. Villegas. Septic shock: Resolved, acute respiratory failure with hypoxia requiring intubation: Resolved. Keep saturation over 90%, mean arterial pressure over 65 mmHg. Monitor urine output. For now continue with Romano catheterization. For now we will continue with vancomycin and imipenem. Patient's wound culture growing staph epidermidis and Jocelyn. Most likely can de-escalate from caspofungin to fluconazole. We will confirm with ID. Greatly appreciate Dr. Villegas's and Dr. Meza's recommendations. Leukocytosis persistent. Most likely reactive. Patient has remained afebrile and hemodynamically stable. No signs of pneumonia. If leukocytosis continues we will have to do repeat abdominal imaging to rule out any collection. Case discussed with Dr. Villegas. Patient has a wound VAC for possible dehiscence of the wound in the lower part. He is planning to remove the right MICHELLE drain today. Anemia: Most likely because of postoperative status. Monitor hemoglobin. Iron panel suggestive of severe iron deficiency anemia. Start patient on IV iron supplementation. Hypertension: Goal blood pressure less than 140/90 mmHg. Hold off on antihypertensives for now. Continue with chronic home medications like statin, Xanax, fenofibrate, gabapentin, Vistaril, trazodone. We will replete electrolytes accordingly. We will try to keep potassium around 4 with magnesium over 2. Full code. SCDs for DVT prophylaxis. Soft mechanical diet. Attestations Medical Necessity Statement*: Bowel perforation, post exploratory laparotomy., Resolving septic shock, severe anemia Time Spent in Patient Care: Greater than 35 minutes (>than 50% of time spent in counselling and/or direct pt care on unit). 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
[2020-04-27] MEDS: enoxaparin 40 mg/0.4 mL Syringe SUBCUT (18:08)
[2020-04-27] MEDS: atorvastatin 40 mg Tablet PO (22:08)
[2020-04-27] MEDS: fenofibrate 145 mg Tablet PO (22:08)
[2020-04-27 23:56] LABS: Vancomycin Trough 15.7 ug/mL (10-15)
[2020-04-28] VITALS (30 sets, daily range): BP systolic 89–129; BP diastolic 44–67; PULSE 77–107; RESP 12–33; TEMP 36.7–37.3; O2SAT 84–99
--- NOTE | 2020-04-28 00:19 | PC.NURSE ---
vanc trough 15.7 michelle in pharmacy notified, verbalized order to continue to hand 0000 dose nurse verbalized understanding with verbal readback
[2020-04-28] MEDS: ipratropium-albuterol 3 mL Neb INHALATION ×4 (02:31→21:38)
[2020-04-28 04:09] LABS: Basophils % 0.1 %; Eosinophils # 0.2 10^3/uL (0.0-0.8); Eosinophils % 0.8 %; Hematocrit 25.9 % (37.0-47.0); Hemoglobin 7.6 g/dL (11.5-15.3); Lymphocytes # 1.7 10^3/uL (0.8-4.8); Lymphocytes % 8.2 %; Mean Corpuscular HGB Conc 29.3 g/dL (30.0-36.0); Mean Corpuscular Hemoglobin 28.7 pg (28.0-34.0); Mean Corpuscular Volume 97.7 fL (81-99); Mean Platelet Volume 11.1 fL (7.4-10.4); Monocytes # 1.3 10^3/uL (0.2-0.9); Monocytes % 6.4 %; Neutrophils # 17.38 10^3/uL (1.8-7.7); Neutrophils % 83.7 %; Nucleated Red Blood Cells % 0 %; Platelet Count 130 10^3/cmm (130-400); Red Blood Count 2.65 10^6/uL (4.1-5.3); Red Cell Distribution Width 16.4 % (12.1-15.1); White Blood Count 20.7 10^3/uL (4.0-10.0)
[2020-04-28 04:37] LABS: Alanine Aminotransferase 23 U/L (0-33); Albumin Level 2.7 g/dL (3.5-5.2); Alkaline Phosphatase 116 IU/L (35-105); Anion Gap 15.3 (5-19); Aspartate Amino Transferase 29 U/L (0-32); Blood Urea Nitrogen 11 mg/dL (6-20); Carbon Dioxide 21 mmol/L (22-29); Chloride 107 mmol/L (98-107); Globulin 2.6 g/dL (1.3-4.6); Glomerular Filtration Rate 129.1 mL/min (90-130); Glucose 90 mg/dL (65-115); Osmolality Calculated 286 mOsm/kg (285-295); Potassium 3.3 mmol/L (3.5-5.1); Sodium 140 mmol/L (136-145); Total Bilirubin 0.9 mg/dL (0.15-1.2); Total Protein 5.3 g/dL (6.6-8.7)
[2020-04-28] MEDS: dextrose 5% 1,000 ML 50 ML IV (05:38)
[2020-04-28] MEDS: potassium chloride ER 10 mEq Tablet 40 MEQ PO ×2 (05:38→09:26)
[2020-04-28] MEDS: acetaminophen 650 mg/20.3 mL UDC PO (06:29)
[2020-04-28 07:12] LABS: Magnesium 1.5 mg/dL (1.7-2.3)
--- NOTE | 2020-04-28 08:34 | PC.NURSE ---
Dr. Simpson notified about potassium and magnesium levels.
[2020-04-28] MEDS: budesonide 0.5 mg/2 mL Neb INHALATION ×2 (08:35→21:37)
[2020-04-28] MEDS: gabapentin 300 mg Capsule PO ×2 (09:26→17:53)
[2020-04-28] MEDS: citalopram 20 mg Tablet 40 MG PO (09:26)
[2020-04-28] MEDS: pantoprazole 40 mg SDV IVP (09:26)
[2020-04-28] MEDS: sodium chloride 0.9% 500 ML IV (09:27)
[2020-04-28] MEDS: fluconazole 100 mg Tablet 400 MG PO (09:50)
[2020-04-28 09:54] LABS: Phosphorus 3.2 mg/dL (2.5-4.5)
[2020-04-28] MEDS: iron sucrose 200 MG in sodium chloride 0.9% (100 ml) 100 ML 220 MG IV (10:07)
[2020-04-28] MEDS: morphine 4 mg/mL SDV 1 mL 2 MG IM (10:18)
--- NOTE | 2020-04-28 10:42 | P.PN_ITS ---
Subjective Subjective: Interval history: Patient overall continues to do well in spite of persistent leukocytosis. Wound VAC seems to be containing appropriately the wound and draining well. Serous output appreciated at the site of explantation of the right sided abdominal drain. Vitals/I&O/Wt Last Vital Signs Temp 98.0 F 04/28/20 08:00 Pulse 88 04/28/20 10:00 Resp 22 H 04/28/20 10:00 BP 89/46 04/28/20 10:00 Pulse Ox 92 04/28/20 10:00 04/27/20 04/28/20 04/28/20 22:59 06:59 14:59 Intake Total 930 / 2240 2719 / 4959 260 / 260 Output Total 1705 / 2235 635 / 2870 Balance -775 / 5 2084 / 2089 260 / 260 Physical Exam Narrative: EXAM NARRATIVE: Patient is conscious alert oriented X3 BMI 33.2 Head and neck examination PERRLA no masses no cervical lymphadenopathy no jaundice Abdomen nontender moderate distended soft no organomegaly guarding or rigidity/no signs of peritonitis Right upper quadrant drain site showing serous output and left lower drain shows sanguinous output Wound VAC in place without complication Romano catheter in place Extremities no cyanosis no clubbing no edema Urinary Catheter Management^: Romano: Cath Placed During This Visit: yes, but has since been removed by the nurse Reason for Continuing Indwelling Catheter: Accurate Measurement of Urinary Output in Critically Ill Patients Urinary Catheter Date of Insertion: 04/19/20 Urinary Catheter Time of Insertion: 08:51 Date Urinary Catheter Removed: 04/19/20 Time Urinary Catheter Discontinued: 08:28 Data : 04/28/20 03:35 04/28/20 03:35 Micro: Microbiology 04/28/20 03:45 Blood Culture - Preliminary Blood SPECIMEN COLLECTED 04/28/20 03:35 Blood Culture - Preliminary Blood SPECIMEN COLLECTED 04/20/20 10:05 Gram Stain - Final Other Source Body Fluid Culture - Preliminary Jocelyn parapsilosis Staphylococcus epidermidis A&P Assessment and plan (1) Bowel perforation: 10:30 am Patient is a status post exploratory laparotomy for bowel perforation 04/13/2020 Optimize nutrition by adding protein shakes 3 to 4 cans a day/regular diet Continue wound VAC therapy and and has been changed bedside today without complication by Likely the patient will benefit from abdominal wall wound washout in the OR Nutrition consultation Turning and repositioning patient in bed every 2 hours and I would highly recommend to get an air mattress to prevent further any potential breakdown.Hydrofera Blue to be applied daily at the site of the left perianal area. Continue physical therapy Assurance and education All questions have been answered and all concerns have been addressed to patient's satisfaction. Family updates Status: Resolved Attestations Medical Necessity Statement*: Medical necessity care is expected to cross 2 midnights Time Spent in Patient Care: (>than 50% of time spent in counselling and/or direct pt care on unit) . Procedures Time out/Consent Time Out Performed: Yes Consent for Procedure: Agrees to proceed with procedure Additional information: Wound VAC application Preprocedure diagnosis abdominal wound status post exploratory laparotomy Postprocedure diagnosis the same Measurements of the wound: 20 x 5 x [address] to the fascial layer Or skin nico were removed at bedside today Procedure done wound VAC application.a large piece of Adaptic was placed at the depth of the wound followed by a single large black foam placed in the wound after removal few skin nico, that was preceded by prepping the skin with alcohol.Placement of the layers coming with the wound VAC accordingly. Tubing connected and the wound VAC was powered on.Pressure initiated 125 mmHg continuous and there was no evidence of leak. And fresh canister was inserted,. 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
--- NOTE | 2020-04-28 12:48 | PC.NURSE ---
Let Dr. rose know that pt had a 13 beat run of SVT.
[2020-04-28] MEDS: HYDROcodone-acetaminophen 5-325 mg Tablet 2 TAB PO (13:41)
[2020-04-28] MEDS: ondansetron 2 mg/ML SDV 2 mL 4 MG IVP (13:56)
--- NOTE | 2020-04-28 16:12 | P.PN_ITS ---
Subjective Subjective: Interval history: He improved. 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 deficits Ext: In place wound VAC, unchanged since previous exam Urinary Catheter Management^: Romano: Cath Placed During This Visit: yes, but has since been removed by the nurse Reason for Continuing Indwelling Catheter: Accurate Measurement of Urinary Output in Critically Ill Patients Urinary Catheter Date of Insertion: 04/19/20 Urinary Catheter Time of Insertion: 08:51 Date Urinary Catheter Removed: 04/19/20 Time Urinary Catheter Discontinued: 08:28 Data : 04/30/20 04:00 04/30/20 04:00 Micro: Microbiology 04/28/20 03:45 Blood Culture - Preliminary Blood SPECIMEN COLLECTED 04/28/20 03:35 Blood Culture - Preliminary Blood SPECIMEN COLLECTED 04/20/20 10:05 Gram Stain - Final Other Source Body Fluid Culture - Preliminary Jocelyn parapsilosis Staphylococcus epidermidis A&P Assessment and plan (1) Acute respiratory failure with hypoxia: Status: Acute (2) COPD (chronic obstructive pulmonary disease): Status: Acute Qualifiers: COPD type: unspecified COPD Qualified Code(s): J44.9 - Chronic obstructive pulmonary disease, unspecified (3) Bilateral pulmonary infiltrates on chest x-ray: Status: Acute (4) Leukocytosis, unspecified: Status: Acute Qualifiers: Leukocytosis type: leukemoid reaction Qualified Code(s): D72.823 - Leukemoid reaction (5) Shock liver: Status: Acute (6) Septic shock: Status: Resolved (7) Bowel perforation: Status: Resolved (8) Major depressive disorder, recurrent severe without psychotic features: Status: Chronic (9) Peritonitis (acute) generalized: Status: Acute Additional A&P Information Patient is a 54-year-old lady who presented on April 13 with chief complaint of abdominal pain nausea vomiting, found to be in septic shock with evidence of perforated diverticulitis with resultant peritonitis. Status post emergent exploratory laparotomy with peritoneal lavage, lysis of omental adhesions encasing different compartmental intra-abdominal abscesses, Intra-op findings with frozen pelvis with sigmoid colon stuck to the lateral pelvic wall, pockets of pus between small bowel loops and different compartments of the abdominal cavity was appreciated. She has been on extensive broad spectrum coverage abx therapy. Unfortunately no intraoperative cultures are available at this time. Hospital course has been notable for intermittent high-grade fevers, now resolved since April 22. Septic shock is also since resolved. Current active issues include wound dehiscence and persisting leukocytosis. # Persistent leukocytosis Patient continues to have persistent leukocytosis, though other parameters appear to be improving. She is clinically getting better. Septic shock is now resolved. Fevers are also now resolved. While this is certainly possible that this could be reactive leukocytosis that is lagging behind clinical recovery, if continues to increase or associated with further spikes of fever, cannot exclude persistent abdominal sources. On the most recent CAT scan and no discrete focal abscess was identified. She plan to return to the OR on April 30 for wound debridement at which time deep cultures from the wound will be taken. Thus far blood culture has remained negative, however last blood culture is available from the . Continue coverage with broad-spectrum antibiotics with imipenem and vancomycin for now. When undergoing wound VAC change and/or procedures in the OR, would be prudent to send deep wound cultures and abdominal cultures. No added advantage to repeating MICHELLE drain cultures as this is likely to represent contaminants such as staph epidermidis which are seen currently. MICHELLE drain cultures as of admission also with Joeclyn perapsilosis for which she has been on caspofungin and now fluconazole. Additional susceptibility testing has been requested from the micro lab. CT images of the chest were personally reviewed, findings appear to be most consistent with bilateral infiltrates more consistent with pulmonary edema rather than any gross consolidation or pneumonia. Do not believe this to be the source at this present time. Wound care to continue per surgery. Based on clinical course and further surgical plans, will attempt to de-escalate antibiotics Attestations Medical Necessity Statement*: further wound care, other medical issues per admitting team Procedures Arterial Line Size (Gauge): 20 Coding Level of Care Code Acute Mill Order Scheduler for Chg Fwd Diagnoses Acute respiratory failure with hypoxia J96.01 COPD (chronic obstructive pulmonary disease) J44.9 COPD type: unspecified COPD Bilateral pulmonary infiltrates on chest x-ray R91.8 Leukocytosis, unspecified D72.823 Leukocytosis type: leukemoid reaction Shock liver K72.00 Septic shock A41.9; R65.21 Bowel perforation K63.1 Major depressive disorder, recurrent severe without psychotic features F33.2 Peritonitis (acute) generalized K65.0
--- NOTE | 2020-04-28 17:03 | PM.PN ---
Subjective Subjective: Interval history: No acute events overnight. Last 24 hours wound VAC was placed and right MICHELLE drain was removed. From the site of MICHELLE drain removal minimal purulent discharge present, serosanguineous discharge from the left MICHELLE drain. Wound VAC present. As per the conversation with surgeon patient still has possible necrotic tissue at the lower part of the surgical wound. On examination patient is hemodynamically stable on room air sitting comfortably in bed. She states she was able to sleep at night. Denies any nausea, vomiting, headache, dizziness. Had a good bowel movement today morning. Passing flatus. Medications: Reviewed: Yes Vitals/I&O/Wt Last Vital Signs Temp 98.0 F 04/28/20 08:00 Pulse 84 04/28/20 16:00 Resp 12 04/28/20 16:00 BP 104/53 04/28/20 16:00 Pulse Ox 89 L 04/28/20 16:00 04/28/20 04/28/20 04/28/20 06:59 14:59 22:59 Intake Total 2819 / 5059 500 / 500 Output Total 635 / 2870 Balance 2184 / 2189 500 / 500 Physical Exam Narrative: EXAM NARRATIVE: General: No acute distress, AO x3 HEENT: PERRLA, pupils bilaterally equal and reactive Chest: Normal vesicular breath sounds, no added sounds, equal good air entry bilaterally CVS: S1-S2 regular, no murmurs, no tachycardia, no gallops, no rubs Abdomen: Soft, nontender except at the incision site, moderately distended abdomen, no rigidity, possible dehiscence of the lower part of the incision,bowel sounds present but sluggish Neuro: No focal deficits, no facial deformity, AO x3, power 5/5 in all limbs Urinary Catheter Management^: Romano: Cath Placed During This Visit: yes, but has since been removed by the nurse Reason for Continuing Indwelling Catheter: Accurate Measurement of Urinary Output in Critically Ill Patients Urinary Catheter Date of Insertion: 04/19/20 Urinary Catheter Time of Insertion: 08:51 Date Urinary Catheter Removed: 04/19/20 Time Urinary Catheter Discontinued: 08:28 Data : 04/28/20 03:35 04/28/20 03:35 Micro: Microbiology 04/28/20 03:45 Blood Culture - Preliminary Blood SPECIMEN COLLECTED 04/28/20 03:35 Blood Culture - Preliminary Blood SPECIMEN COLLECTED 04/20/20 10:05 Gram Stain - Final Other Source Body Fluid Culture - Preliminary Jocelyn parapsilosis Staphylococcus epidermidis A&P Assessment and plan (1) Acute respiratory failure with hypoxia: Secondary to pneumonia. 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 Advance diet, management of drain, wound VAC, anticoagulation as per Dr. Villegas. Case discussed with Dr. Villegas. Septic shock: Resolved, acute respiratory failure with hypoxia requiring intubation: Resolved. Keep saturation over 90%, mean arterial pressure over 65 mmHg. Monitor urine output. For now continue with Romano catheterization. For now we will continue with vancomycin and imipenem, oral fluconazole.. Patient's wound culture growing staph epidermidis and Jocelyn. Greatly appreciate Dr. Villegas's and Dr. Meza's recommendations. Leukocytosis persistent. Most likely reactive. Patient has remained afebrile and hemodynamically stable. No signs of pneumonia. If leukocytosis continues we will have to do repeat abdominal imaging to rule out any collection. Case discussed with Dr. Villegas. He states patient has a possible necrotic wound dehiscence at the lower part. Plan would be to take patient to the OR on Sunday evening for possible minimal wound exploration and if needed abdominal wash. If patient has fever or worsening leukocytosis we will plan to repeat imaging. Check C. difficile if patient has diarrhea. Anemia: Most likely because of postoperative status. Monitor hemoglobin. Iron panel suggestive of severe iron deficiency anemia. Start patient on IV iron supplementation. Day 2/5 today. We will transfuse if hemoglobin falls below 7. Hypertension: Goal blood pressure less than 140/90 mmHg. Hold off on antihypertensives for now. Continue with chronic home medications like statin, Xanax, fenofibrate, gabapentin, Vistaril, trazodone. We will replete electrolytes accordingly. We will try to keep potassium around 4 with magnesium over 2. Full code. SCDs for DVT prophylaxis. Soft mechanical diet. Attestations Medical Necessity Statement*: Severe sepsis, bowel perforation post exploratory laparotomy, wound dehiscence Time Spent in Patient Care: Greater than 35 minutes (>than 50% of time spent in counselling and/or direct pt care on unit). Procedures Arterial Line Size (Gauge): 20 Coding Level of Care Code Acute Manager Supply Chain Planning for Chg Fwd Diagnoses Acute respiratory failure with hypoxia J96.01 COPD (chronic obstructive pulmonary disease) J44.9 COPD type: unspecified COPD Bilateral pulmonary infiltrates on chest x-ray R91.8 Leukocytosis, unspecified D72.823 Leukocytosis type: leukemoid reaction Shock liver K72.00 Septic shock A41.9; R65.21 Bowel perforation K63.1 Major depressive disorder, recurrent severe without psychotic features F33.2 Peritonitis (acute) generalized K65.0
[2020-04-28 17:51] LABS: Anion Gap 12.8 (5-19); Blood Urea Nitrogen 8 mg/dL (6-20); Calcium 8.1 mg/dL (8.5-10.5); Carbon Dioxide 24 mmol/L (22-29); Chloride 108 mmol/L (98-107); Glomerular Filtration Rate 104.6 mL/min (90-130); Glucose 133 mg/dL (65-115); Magnesium 1.6 mg/dL (1.7-2.3); Osmolality Calculated 290 mOsm/kg (285-295); Potassium 3.8 mmol/L (3.5-5.1); Sodium 141 mmol/L (136-145)
[2020-04-28] MEDS: magnesium oxide 400 mg tablet PO (17:53)
[2020-04-28] MEDS: enoxaparin 40 mg/0.4 mL Syringe SUBCUT (17:53)
[2020-04-28] MEDS: atorvastatin 40 mg Tablet PO (21:06)
[2020-04-28] MEDS: fenofibrate 145 mg Tablet PO (21:06)
[2020-04-29] VITALS (44 sets, daily range): BP systolic 80–136; BP diastolic 45–73; PULSE 71–101; RESP 11–34; TEMP 36.3–37.1; O2SAT 86–98
[2020-04-29] MEDS: vancomycin 1,000 MG in sodium chloride 0.9% 250 ML 250 MG IV ×2 (00:09→12:32)
[2020-04-29] MEDS: ipratropium-albuterol 3 mL Neb INHALATION ×4 (03:11→22:00)
[2020-04-29] MEDS: dextrose 5% 1,000 ML 50 ML IV (04:50)
[2020-04-29 04:58] LABS: Alanine Aminotransferase 20 U/L (0-33); Albumin Level 2.4 g/dL (3.5-5.2); Alkaline Phosphatase 180 IU/L (35-105); Anion Gap 9.9 (5-19); Aspartate Amino Transferase 26 U/L (0-32); Blood Urea Nitrogen 8 mg/dL (6-20); Calcium 7.4 mg/dL (8.5-10.5); Carbon Dioxide 24 mmol/L (22-29); Chloride 101 mmol/L (98-107); Globulin 2.5 g/dL (1.3-4.6); Glomerular Filtration Rate 129.1 mL/min (90-130); Glucose 407 mg/dL (65-115); Osmolality Calculated 285 mOsm/kg (285-295); Potassium 3.9 mmol/L (3.5-5.1); Sodium 131 mmol/L (136-145); Total Bilirubin 0.6 mg/dL (0.15-1.2); Total Protein 4.9 g/dL (6.6-8.7)
[2020-04-29] MEDS: HYDROcodone-acetaminophen 5-325 mg Tablet 2 TAB PO ×2 (04:59→08:54)
[2020-04-29 05:42] LABS: Magnesium 1.6 mg/dL (1.7-2.3)
[2020-04-29] MEDS: magnesium sulfate premix 2 GM/50 ML PIGGYBACK IV (06:33)
[2020-04-29 07:50] LABS: Basophils % 0.1 %; Eosinophils # 0.2 10^3/uL (0.0-0.8); Eosinophils % 1.3 %; Hematocrit 25.5 % (37.0-47.0); Hemoglobin 7.3 g/dL (11.5-15.3); Lymphocytes # 1.6 10^3/uL (0.8-4.8); Lymphocytes % 8.9 %; Mean Corpuscular HGB Conc 28.6 g/dL (30.0-36.0); Mean Corpuscular Hemoglobin 28.9 pg (28.0-34.0); Mean Corpuscular Volume 100.8 fL (81-99); Mean Platelet Volume 10.4 fL (7.4-10.4); Monocytes # 1.8 10^3/uL (0.2-0.9); Monocytes % 9.7 %; Neutrophils # 14.46 10^3/uL (1.8-7.7); Neutrophils % 79.3 %; Nucleated Red Blood Cells % 0 %; Platelet Count 166 10^3/cmm (130-400); Red Blood Count 2.53 10^6/uL (4.1-5.3); Red Cell Distribution Width 16.7 % (12.1-15.1); White Blood Count 18.2 10^3/uL (4.0-10.0)
[2020-04-29 08:01] LABS: Glucose Point of Care 95 mg/dL (70-110)
[2020-04-29] MEDS: budesonide 0.5 mg/2 mL Neb INHALATION ×2 (08:43→22:00)
[2020-04-29] MEDS: citalopram 20 mg Tablet 40 MG PO (08:55)
[2020-04-29] MEDS: fluconazole 100 mg Tablet 400 MG PO (08:55)
[2020-04-29] MEDS: gabapentin 300 mg Capsule PO ×2 (08:55→18:21)
[2020-04-29] MEDS: pantoprazole 40 mg SDV IVP (08:55)
[2020-04-29] MEDS: magnesium oxide 400 mg tablet PO ×2 (08:55→18:21)
[2020-04-29] MEDS: iron sucrose 200 MG in sodium chloride 0.9% (100 ml) 100 ML IV (09:05)
--- NOTE | 2020-04-29 10:17 | PM.PN ---
Subjective Subjective: Interval history: No acute events overnight. Hemodynamic stable in last 24 hs. On exam today morning is appearing tired and is a little drowsy though saturation are maintained. On examination patient is hemodynamically stable on room air sitting comfortably in bed. She states she was able to sleep at night. Denies any nausea, vomiting, headache, dizziness. Had a good bowel movement today morning. Passing flatus and had a BM in AM. Vitals/I&O/Wt Last Vital Signs Temp 97.5 F L 04/29/20 09:00 Pulse 90 04/29/20 09:00 Resp 19 H 04/29/20 09:00 BP 123/68 04/29/20 09:00 Pulse Ox 93 04/29/20 09:00 04/28/20 04/29/20 04/29/20 22:59 06:59 14:59 Intake Total 320 / 820 1100 / 1920 1076 / 1076 Output Total 1120 / 1120 1115 / 2235 Balance -800 / -300 -15 / -315 1076 / 1076 Physical Exam Narrative: EXAM NARRATIVE: General: No acute distress, AO x3 HEENT: PERRLA, pupils bilaterally equal and reactive Chest: Normal vesicular breath sounds, no added sounds, equal good air entry bilaterally CVS: S1-S2 regular, no murmurs, no tachycardia, no gallops, no rubs Abdomen: Soft, nontender except at the incision site, moderately distended abdomen, no rigidity, possible dehiscence of the lower part of the incision,bowel sounds present but sluggish Neuro: No focal deficits, no facial deformity, AO x3, power 5/5 in all limbs Urinary Catheter Management^: Romano: Cath Placed During This Visit: yes, but has since been removed by the nurse Reason for Continuing Indwelling Catheter: Accurate Measurement of Urinary Output in Critically Ill Patients Urinary Catheter Date of Insertion: 04/19/20 Urinary Catheter Time of Insertion: 08:51 Date Urinary Catheter Removed: 04/19/20 Time Urinary Catheter Discontinued: 08:28 Data : 04/29/20 07:40 04/29/20 03:30 Micro: Microbiology 04/28/20 03:45 Blood Culture - Preliminary Blood NEGATIVE TO DATE 04/28/20 03:35 Blood Culture - Preliminary Blood NEGATIVE TO DATE A&P Assessment and plan (1) Acute respiratory failure with hypoxia: Secondary to pneumonia. 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 Advance diet, management of drain, wound VAC, anticoagulation as per Dr. Villegas. Case discussed with Dr. Villegas. Septic shock: Resolved, acute respiratory failure with hypoxia requiring intubation: Resolved. Keep saturation over 90%, mean arterial pressure over 65 mmHg. Monitor urine output. For now continue with Romano catheterization. For now we will continue with vancomycin and imipenem, oral fluconazole. Patient's wound culture growing staph epidermidis and Jocelyn. Greatly appreciate Dr. Villegas's and Dr. Meza's recommendations. Leukocytosis persistent but trending down slowly. Most likely reactive. Patient has remained afebrile and hemodynamically stable. No signs of pneumonia. If leukocytosis continues we will have to do repeat abdominal imaging to rule out any collection. Case discussed with Dr. Villegas. He states patient has a possible necrotic wound dehiscence at the lower part. Plan would be to take patient to the OR on Sunday evening for possible minimal wound exploration and if needed abdominal wash. If patient has fever or worsening leukocytosis we will plan to repeat imaging. Check C. difficile if patient has diarrhea. Will decrease dose of [place] to 325/5 1 tab. Patient mostly likely drowsy b/c of over sedation. Decrease dose of Celexa to 20 mg. Anemia: Hb worsening, With patient appearing tired will transfuse 2 unit PRBC as patient planned for OR in AM. Check retic count, folate level, Vit B12. Replete as needed. Monitor hemoglobin. Iron panel suggestive of severe iron deficiency anemia. Start patient on IV iron supplementation. Day 3/5 today. Severe Protein Energy malnutrition: Nutrition consult. Ensure with meals. Hypertension: Goal blood pressure less than 140/90 mmHg. Hold off on antihypertensives for now. Continue with chronic home medications like statin, Xanax, fenofibrate, gabapentin, Vistaril, trazodone. We will replete electrolytes accordingly. We will try to keep potassium around 4 with magnesium over 2. Full code. SCDs for DVT prophylaxis. Soft mechanical diet. Attestations Medical Necessity Statement*: Bowel perf, Post Op Time Spent in Patient Care: Greater than 35 minutes (>than 50% of time spent in counselling and/or direct pt care on unit). Procedures Arterial Line Size (Gauge): 20 Coding Level of Care Code Acute Dispensary Attendant for g Fwd Diagnoses Acute respiratory failure with hypoxia J96.01 COPD (chronic obstructive pulmonary disease) J44.9 COPD type: unspecified COPD Bilateral pulmonary infiltrates on chest x-ray R91.8 Leukocytosis, unspecified D72.823 Leukocytosis type: leukemoid reaction Shock liver K72.00 Septic shock A41.9; R65.21 Bowel perforation K63.1 Major depressive disorder, recurrent severe without psychotic features F33.2 Peritonitis (acute) generalized K65.0
[2020-04-29 11:07] LABS: Vitamin B12 542 pg/mL (232-1245)
[2020-04-29 11:09] LABS: Folate Level < 2.0 ng/mL (4.8-37.3)
[2020-04-29] MEDS: multivitamin therapeutic Tablet 1 TAB PO (11:29)
[2020-04-29 11:33] LABS: Vancomycin Trough 15.7 ug/mL (10-15)
--- NOTE | 2020-04-29 12:13 | PC.SOCIAL ---
IMM Update Pg. 2 of IMM updated and copy left at bedside. Patient resting with both eyes closed and still several days from discharge, so did not wake at this time.
[2020-04-29 12:56] LABS: Glucose Point of Care 108 mg/dL (70-110)
[2020-04-29] MEDS: sodium chloride 0.9% (100 ml) 100 ML 10 ML (13:15)
--- NOTE | 2020-04-29 16:18 | PM.PN ---
Subjective Subjective: Interval history: Feels better but seems drowsy No acute events overnight Voiding urine without a need for a Romano catheter Trending down in leukocytosis Vitals/I&O/Wt Last Vital Signs Temp 97.6 F 04/29/20 15:12 Pulse 75 04/29/20 15:12 Resp 18 04/29/20 15:12 BP 105/58 04/29/20 15:12 Pulse Ox 94 04/29/20 15:12 04/29/20 04/29/20 04/29/20 06:59 14:59 22:59 Intake Total 1100 / 1920 2186 / 2186 0 / 2186 Output Total 1115 / 2235 450 / 450 Balance -15 / -315 1736 / 1736 0 / 1736 Physical Exam Narrative: EXAM NARRATIVE: Patient is conscious alert oriented X3 BMI 33.2 Head and neck examination PERRLA no masses no cervical lymphadenopathy no jaundice Abdomen nontender moderate distended soft no organomegaly guarding or rigidity/no signs of peritonitis Right upper quadrant drain site showing serous output and left lower drain shows sanguinous output Wound VAC in place without complication Extremities no cyanosis no clubbing no edema Urinary Catheter Management^: Romano: Cath Placed During This Visit: yes, but has since been removed by the nurse Reason for Continuing Indwelling Catheter: Accurate Measurement of Urinary Output in Critically Ill Patients Urinary Catheter Date of Insertion: 04/19/20 Urinary Catheter Time of Insertion: 08:51 Date Urinary Catheter Removed: 04/19/20 Time Urinary Catheter Discontinued: 08:28 Data : 04/29/20 07:40 04/29/20 03:30 Micro: Microbiology 04/27/20 15:00 Catheter Tip Culture - Preliminary Other Source 04/28/20 03:45 Blood Culture - Preliminary Blood NEGATIVE TO DATE 04/28/20 03:35 Blood Culture - Preliminary Blood NEGATIVE TO DATE A&P Assessment and plan (1) Bowel perforation: Patient is a status post exploratory laparotomy for bowel perforation 04/13/2020 Continue optimize nutrition by adding protein shakes 3 to 4 cans a day/regular diet Continue wound VAC therapy and will plan for abdominal wound washout tomorrow in the OR Patient and her daughter Loulou agreed to proceed accordingly and informed consent per chart Highly recommend to have the patient only on 1 hydrocodone five 325 mg tablet every 6 hours as needed instead of 2 due to the overall drowsiness. Turning and repositioning patient in bed every 2 hours and I would highly recommend to get an air mattress to prevent further any potential breakdown.Hydrofera Blue to be applied daily at the site of the left perianal area. Continue physical therapy Assurance and education All questions have been answered and all concerns have been addressed to patient's satisfaction. Family updates Status: Resolved Attestations Medical Necessity Statement*: Medical necessity care is expected to cross 2 midnights because of continued need of ICU care and complex wound care. Time Spent in Patient Care: (>than 50% of time spent in counselling and/or direct pt care on unit). 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
--- NOTE | 2020-04-29 16:35 | PC.NURSE ---
Daughter at bedside. Dr. Donahue here to explain tomorrow's surgical procedure. All questions answered appropriately. Patient verbalizes understanding, consents signed and placed in patient chart, daughter signed as witness due to patient's mild drowsiness. Will continue to monitor.
[2020-04-29] MEDS: enoxaparin 40 mg/0.4 mL Syringe SUBCUT (18:21)
[2020-04-29] MEDS: folic acid 1 mg Tablet PO (18:21)
[2020-04-29] MEDS: fenofibrate 145 mg Tablet PO (20:51)
[2020-04-29] MEDS: atorvastatin 40 mg Tablet PO (20:51)
[2020-04-30] VITALS (45 sets, daily range): BP systolic 91–157; BP diastolic 52–88; PULSE 73–88; RESP 9–24; TEMP 36.9–37.3; O2SAT 79–98
[2020-04-30] MEDS: vancomycin 1,000 MG in sodium chloride 0.9% 250 ML 250 MG IV (00:29)
[2020-04-30 04:35] LABS: Basophils % 0.2 %; Eosinophils # 0.2 10^3/uL (0.0-0.8); Eosinophils % 1.2 %; Hematocrit 34.6 % (37.0-47.0); Hemoglobin 10.4 g/dL (11.5-15.3); Lymphocytes # 1.3 10^3/uL (0.8-4.8); Lymphocytes % 8.2 %; Mean Corpuscular HGB Conc 30.1 g/dL (30.0-36.0); Mean Corpuscular Hemoglobin 29.5 pg (28.0-34.0); Mean Corpuscular Volume 98.3 fL (81-99); Mean Platelet Volume 10.6 fL (7.4-10.4); Monocytes # 1.4 10^3/uL (0.2-0.9); Monocytes % 8.8 %; Neutrophils # 12.63 10^3/uL (1.8-7.7); Neutrophils % 80.8 %; Nucleated Red Blood Cells % 0 %; Platelet Count 169 10^3/cmm (130-400); Red Blood Count 3.52 10^6/uL (4.1-5.3); Red Cell Distribution Width 16.9 % (12.1-15.1); White Blood Count 15.6 10^3/uL (4.0-10.0)
[2020-04-30] MEDS: ipratropium-albuterol 3 mL Neb INHALATION ×3 (04:47→20:12)
[2020-04-30 05:12] LABS: Alanine Aminotransferase 20 U/L (0-33); Albumin Level 2.6 g/dL (3.5-5.2); Alkaline Phosphatase 138 IU/L (35-105); Aspartate Amino Transferase 24 U/L (0-32); Blood Urea Nitrogen 7 mg/dL (6-20); Calcium 8.2 mg/dL (8.5-10.5); Carbon Dioxide 26 mmol/L (22-29); Chloride 109 mmol/L (98-107); Globulin 3.3 g/dL (1.3-4.6); Glomerular Filtration Rate 129.1 mL/min (90-130); Glucose 78 mg/dL (65-115); Magnesium 1.7 mg/dL (1.7-2.3); Osmolality Calculated 285 mOsm/kg (285-295); Sodium 140 mmol/L (136-145); Total Bilirubin 0.9 mg/dL (0.15-1.2); Total Protein 5.9 g/dL (6.6-8.7)
[2020-04-30 05:14] LABS: Anion Gap 9.3 (5-19); Potassium 4.3 mmol/L (3.5-5.1)
--- NOTE | 2020-04-30 06:11 | PC.NURSE ---
SHIFT SUMMARY Patient has rested well overnight. Patient has been sinus rhythm in the 80s this shift. Patient has been on 3L NC this shift and saturating in the low 90s. Patient has not had any complaints of pain. 100 mL sanguineous ouput from wound vac. 15 mL sanguineous output from left MICHELLE drain. Dressing site where right MICHELLE was placed had minimal drainage and dressing was changed. Dressing remains clean, dry and intact. Patient has had 500 mL measured urine output this shift with 1 incontinent void.
[2020-04-30] MEDS: fluconazole 100 mg Tablet 400 MG PO (08:48)
[2020-04-30] MEDS: folic acid 1 mg Tablet PO ×2 (08:49→15:23)
[2020-04-30] MEDS: pantoprazole 40 mg SDV IVP (08:49)
[2020-04-30] MEDS: baclofen 10 mg Tablet PO ×2 (08:49→15:10)
[2020-04-30] MEDS: magnesium oxide 400 mg tablet PO ×2 (08:49→15:23)
[2020-04-30] MEDS: gabapentin 300 mg Capsule PO ×2 (08:50→15:23)
[2020-04-30] MEDS: multivitamin therapeutic Tablet 1 TAB PO (08:50)
[2020-04-30] MEDS: citalopram 20 mg Tablet PO (08:50)
--- NOTE | 2020-04-30 09:10 | P.ANESASSM_ITS ---
Pre-Anesthetic Assessment Pre-Anesthetic Assessment: Height/Weight: Height 1.52 m Weight 77.111 kg Temp Pulse Resp BP Pulse Ox 98.7 F 88 17 115/52 92 04/29/20 22:00 04/30/20 06:00 04/30/20 06:00 04/30/20 06:00 04/30/20 06:00 Preop Diagnosis: Perforated viscus Proposed Procedure: Operation Date: 04/13/20 22:30 Proposed Procedures p Laparoscopy(Not Applicable) - Toño Villegas MD s Exploratory Laparotomy(Not Applicable) - Toño Villegas MD s Laparoscopic Colon Resection(Not Applicable) - Toño Villegas MD Operation Date: 04/20/20 07:50 Proposed Procedures p Bronchoscopy(Not Applicable) - Gucci Mcneal MD Operation Date: 04/30/20 11:30 Proposed Procedures p abdominal wound washout and wound vac dressing change(Not Applicable) - Toño Villegas MD Familial anesthetic complications: None Was Beta Edwin taken within 24 hours: N/A Last intake: Intake NPO > 8 hrs Last Liquid Date 04/13/20 Last Liquid Time 20:43 Last Solid Date 04/07/20 Last Solid Time 12:00 Social: Social History: Tobacco Exam: Pre-Anes Outpt Exam: alert, oriented x 3, clear to auscultation bilaterally and regular rate & rhythm Airway: Cervical ROM: WNL MP: 4 Dentition: Chipped Pulmonary: Pulmonary: COPD Comments: recent pneumonia (Acute resp failure) CV/HEM: CV/HEM: HTN Comments: normal echo (04/15) : : Chronic renal Insufficiency Metabolic: Comments: shock liver (improving) septic shock (resolved) Anesthetic Plan: ASA status: 4 Risk of > 500 ml blood loss (7ml/kg in children): No Meds/Allergies Current Medications: Current Medications Generic Name Dose Route Start Last Admin Trade Name Freq PRN Reason Stop Dose Admin Acetaminophen 650 mg 04/21/20 00:24 04/28/20 06:29 Tylenol Liquid PO 650 mg Q4H PRN Administration MILD PAIN OR INCR EASE TEMP Albuterol/Ipratrop ium 3 ml 04/15/20 09:00 04/30/20 04:47 Duoneb INHALATION 3 ml Q6H.RESPIRATORY S CH Administration Atorvastatin Calci um 40 mg 04/25/20 21:00 04/29/20 20:51 Lipitor PO 40 mg BEDTIME BRITTNEY Administration Baclofen 10 mg 04/25/20 07:55 04/30/20 08:49 Lioresal PO 10 mg TID PRN Administration Spasms Budesonide 0.5 mg 04/15/20 08:00 04/29/20 22:00 Pulmicort INHALATION 0.5 mg BID.RESPIRATORY S CH Administration Citalopram Hydrobr omide 20 mg 04/30/20 09:00 04/30/20 08:50 Celexa PO 20 mg DAILY BRITTNEY Administration Enoxaparin Sodium 40 mg 04/20/20 18:00 04/29/20 18:21 Lovenox SUBCUT 40 mg Q24H BRITTNEY Administration Fenofibrate 145 mg 04/25/20 21:00 04/29/20 20:51 Tricor PO 145 mg BEDTIME BRITTNEY Administration Fluconazole 400 mg 04/28/20 09:00 04/30/20 08:48 Diflucan Tab PO 400 mg DAILY BRITTNEY Administration Folic Acid 1 mg 04/29/20 18:00 04/30/20 08:49 Folic Acid PO 1 mg BID BRITTNEY Administration Gabapentin 300 mg 04/25/20 09:00 04/30/20 08:50 Neurontin PO 300 mg BID BRITTNEY Administration Hydralazine HCl 10 mg 04/20/20 02:19 04/23/20 23:47 Apresoline IVP 10 mg Q4H PRN Administration Systolic blood pr essure greater brianne n 180, diastolic g reater than 100 Acetaminophen 1,000 mg in 100 m ls @ 400 mls/hr 04/21/20 14:16 04/22/20 10:30 Ofirmev IV Infused Q8H PRN Infusion FEVER >100.4 Iron Sucrose 200 m g/ Sodium 110 mls @ 220 mls /hr 04/27/20 09:00 04/29/20 11:39 Chloride IV 05/02/20 08:59 Infused Q24H BRITTNEY Infusion Imipenem/Cilastati n Sodium 500 100 mls @ 200 mls /hr 04/29/20 00:30 04/30/20 07:00 mg/ Sodium Chlor jaleel IV Infused Q6H BRITTNEY Infusion Protocol Vancomycin HCl 1,0 00 mg/ 250 mls @ 250 mls /hr 04/29/20 00:00 04/30/20 01:29 Sodium Chloride IV Infused Q12H BRITTNEY Infusion Protocol Magnesium Oxide 400 mg 04/28/20 18:00 04/30/20 08:49 Magox PO 400 mg BID BRITTNEY Administration Multivitamins Ther apeutic 1 tab 04/29/20 10:30 04/30/20 08:50 Multivitamin Tab PO 1 tab DAILY BRITTNEY Administration Ondansetron HCl 4 mg 04/28/20 13:49 04/28/20 13:56 Zofran IVP 4 mg Q6H PRN Administration NAUSEA AND VOMITI NG Pantoprazole Sodiu m 40 mg 04/15/20 09:00 04/30/20 08:49 Protonix IVP 40 mg DAILY BRITTNEY Administration Trazodone HCl 300 mg 04/25/20 07:58 04/25/20 21:12 Desyrel PO 300 mg BEDTIME PRN Administration Sleep Additional Medication Information: Current Medications Acetaminophen (Tylenol Liquid) 650 mg PO Q4H PRN PRN Reason: MILD PAIN OR INCREASE TEMP Last Admin: 04/21/20 21:41 Dose: 650 mg Documented by: Albuterol/Ipratropium (Duoneb) 3 ml INHALATION Q6H.RESPIRATORY BRITTNEY Last Admin: 04/25/20 02:22 Dose: 3 ml Documented by: Alprazolam (Xanax) 0.5 mg PO TID PRN PRN Reason: ANXIETY Last Admin: 04/24/20 21:43 Dose: 0.5 mg Documented by: Budesonide (Pulmicort) 0.5 mg INHALATION BID.RESPIRATORY BRITTNEY Last Admin: 04/24/20 21:33 Dose: 0.5 mg Documented by: Enoxaparin Sodium (Lovenox) 40 mg SUBCUT Q24H BRITTNEY Last Admin: 04/24/20 17:37 Dose: 40 mg Documented by: Hydralazine HCl (Apresoline) 10 mg IVP Q4H PRN PRN Reason: Systolic blood pressure greater than 180, diastolic greater than 100 Last Admin: 04/23/20 23:47 Dose: 10 mg Documented by: Norepinephrine Bitartrate 4 mg (/ Dextrose) 254 mls @ 0 mls/hr IV .Q0M BRITTNEY; Protocol Last Titration: 04/18/20 07:00 Dose: Infused Documented by: Norepinephrine Bitartrate 8 mg (/ Dextrose) 508 mls @ 0 mls/hr IV .Q0M BRITTNEY; Protocol Last Titration: 04/18/20 14:15 Dose: Infused Documented by: Dextrose (D5w) 1,000 mls @ 50 mls/hr IV .Q20H BRITTNEY Last Infusion: 04/25/20 06:45 Dose: 50 mls/hr Documented by: Acetaminophen (Ofirmev) 1,000 mg in 100 mls @ 400 mls/hr IV Q8H PRN PRN Reason: FEVER >100.4 Last Infusion: 04/22/20 10:30 Dose: Infused Documented by: Dexmedetomidine HCl 400 mcg/ (Sodium Chloride) 104 mls @ 0 mls/hr IV .Q0M BRITTNEY; Protocol Last Titration: 04/24/20 06:25 Dose: 0 mcg/kg/hr, 0 mls/hr Documented by: Imipenem/Cilastatin Sodium 500 (mg/ Dextrose) 100 mls @ 200 mls/hr IV Q6H BRITTNEY; Protocol Last Infusion: 04/25/20 06:45 Dose: Infused Documented by: Caspofungin 50 mg/ Sodium (Chloride) 250 mls @ 250 mls/hr IV Q24H BRITTNEY Last Infusion: 04/24/20 17:38 Dose: Infused Documented by: Doxycycline Hyclate 100 mg/ (Dextrose) 100 mls @ 100 mls/hr IV Q12H BRITTNEY; Protocol Last Infusion: 04/25/20 05:45 Dose: Infused Documented by: Vancomycin HCl 1,000 mg/ (Dextrose) 250 mls @ 250 mls/hr IV Q18H BRITTNEY; Protocol Last Infusion: 04/25/20 02:37 Dose: Infused Documented by: Pantoprazole Sodium (Protonix) 40 mg IVP DAILY [facility] Last Admin: 04/24/20 14:30 Dose: 40 mg Documented by: [facility] Anesthesia [facility]: Medical History (Updated 04/28/20 @ 15:52 by Jailene Meza MD) Generalized anxiety disorder 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, recurrent severe without psychotic features Nicotine dependence, cigarettes, uncomplicated Surgical History H/O of hysterectomy with bilateral oophorectomy Family History Mother CHF (congestive heart failure) Social History Smoking and tobacco status: current every day smoker cigarettes Packs smoked per day: 1 Alcohol intake: current Alcohol intake frequency: few times a month Household members: family Marital status: Current occupational status: unemployed History of recent travel: No Data Anesthesia CBC & Chem 7: 04/30/20 04:00 04/30/20 04:00 Other Labs: Laboratory Results - last 48 hr 04/22/20 04/25/20 04/28/20 13:50 08:30 03:35 WBC Corrected WBC RBC Hgb Hct MCV MCH MCHC RDW Plt Count MPV Gran % Neut % (Auto) Lymph % (Auto) [place] % (Auto) Eos % (Auto) Baso % (Auto) Reticulocyte % (Auto) Neut # (Auto) Lymph # (Auto) [place] # (Auto) Eos # (Auto) Baso # (Auto) Absolute Gran (auto) Nucleated RBC % (auto) Nucleated RBCs # Sodium Potassium Chloride Carbon Dioxide Anion Gap BUN Creatinine GFR Calculation Glucose POC Glucose Calculated Osmolality Calcium Phosphorus 3.2 Magnesium Total Bilirubin AST ALT Alkaline Phosphatase Total Protein Albumin Globulin Vitamin B12 Folate Vancomycin Trough Misc Test Reference See comment Blood Type Rho(D) Type Antibody Screen Crossmatch See Detail 04/28/20 04/29/20 04/29/20 17:18 03:30 03:30 WBC Cancelled Corrected WBC Cancelled RBC Cancelled Hgb Cancelled Hct Cancelled MCV Cancelled MCH Cancelled MCHC Cancelled RDW Cancelled Plt Count Cancelled MPV Cancelled Gran % Cancelled Neut % (Auto) Cancelled Lymph % (Auto) Cancelled [place] % (Auto) Cancelled Eos % (Auto) Cancelled Baso % (Auto) Cancelled Reticulocyte % (Auto) Neut # (Auto) Cancelled Lymph # (Auto) Cancelled [place] # (Auto) Cancelled Eos # (Auto) Cancelled Baso # (Auto) Cancelled Absolute Gran (auto) Cancelled Nucleated RBC % (auto) Cancelled Nucleated RBCs # Cancelled Sodium 141 131 L Potassium 3.8 3.9 Chloride 108 H 101 Carbon Dioxide 24 24 Anion Gap 12.8 9.9 BUN 8 8 Creatinine 0.6 0.5 GFR Calculation 104.6 129.1 Glucose 133 H 407 H POC Glucose Calculated Osmolality 290 285 Calcium 8.1 L 7.4 L Phosphorus Magnesium 1.6 L Total Bilirubin 0.6 AST 26 ALT 20 Alkaline Phosphatase 180 H Total Protein 4.9 L Albumin 2.4 L Globulin 2.5 Vitamin B12 Folate Vancomycin Trough Misc Test Reference Blood Type Rho(D) Type Antibody Screen Crossmatch 04/29/20 04/29/20 04/29/20 03:30 06:45 07:40 WBC Cancelled 18.2 H Corrected WBC Cancelled RBC Cancelled 2.53 L Hgb Cancelled 7.3 L Hct Cancelled 25.5 L MCV Cancelled 100.8 H MCH Cancelled 28.9 MCHC Cancelled 28.6 L RDW Cancelled 16.7 H Plt Count Cancelled 166 MPV Cancelled 10.4 Gran % Cancelled Neut % (Auto) Cancelled 79.3 Lymph % (Auto) Cancelled 8.9 [place] % (Auto) Cancelled 9.7 Eos % (Auto) Cancelled 1.3 Baso % (Auto) Cancelled 0.1 Reticulocyte % (Auto) Neut # (Auto) Cancelled 14.46 H Lymph # (Auto) Cancelled 1.6 [place] # (Auto) Cancelled 1.8 H Eos # (Auto) Cancelled 0.2 Baso # (Auto) Cancelled 0.0 Absolute Gran (auto) Cancelled Nucleated RBC % (auto) Cancelled 0 Nucleated RBCs # Cancelled 0.0 Sodium Potassium Chloride Carbon Dioxide Anion Gap BUN Creatinine GFR Calculation Glucose POC Glucose Calculated Osmolality Calcium Phosphorus Magnesium 1.6 L Total Bilirubin AST ALT Alkaline Phosphatase Total Protein Albumin Globulin Vitamin B12 Folate Vancomycin Trough Misc Test Reference Blood Type Rho(D) Type Antibody Screen Crossmatch 04/29/20 04/29/20 04/29/20 07:40 07:40 07:41 WBC Corrected WBC RBC Hgb Hct MCV MCH MCHC RDW Plt Count MPV Gran % Neut % (Auto) Lymph % (Auto) [place] % (Auto) Eos % (Auto) Baso % (Auto) Reticulocyte % (Auto) 3.9000 Neut # (Auto) Lymph # (Auto) [place] # (Auto) Eos # (Auto) Baso # (Auto) Absolute Gran (auto) Nucleated RBC % (auto) Nucleated RBCs # Sodium Potassium Chloride Carbon Dioxide Anion Gap BUN Creatinine GFR Calculation Glucose POC Glucose 95 Calculated Osmolality Calcium Phosphorus Magnesium Total Bilirubin AST ALT Alkaline Phosphatase Total Protein Albumin Globulin Vitamin B12 542 Folate < 2.0 L Vancomycin Trough Misc Test Reference Blood Type Rho(D) Type Antibody Screen Crossmatch 04/29/20 04/29/20 04/29/20 10:57 10:57 12:52 WBC Corrected WBC RBC Hgb Hct MCV MCH MCHC RDW Plt Count MPV Gran % Neut % (Auto) Lymph % (Auto) [place] % (Auto) Eos % (Auto) Baso % (Auto) Reticulocyte % (Auto) Neut # (Auto) Lymph # (Auto) [place] # (Auto) Eos # (Auto) Baso # (Auto) Absolute Gran (auto) Nucleated RBC % (auto) Nucleated RBCs # Sodium Potassium Chloride Carbon Dioxide Anion Gap BUN Creatinine GFR Calculation Glucose POC Glucose 108 Calculated Osmolality Calcium Phosphorus Magnesium Total Bilirubin AST ALT Alkaline Phosphatase Total Protein Albumin Globulin Vitamin B12 Folate Vancomycin Trough 15.7 H Misc Test Reference Blood Type O Positive Rho(D) Type Positive Antibody Screen Negative Crossmatch See Detail 04/30/20 04/30/20 04:00 04:00 WBC 15.6 H Corrected WBC RBC 3.52 L Hgb 10.4 L D Hct 34.6 L D MCV 98.3 MCH 29.5 MCHC 30.1 D RDW 16.9 H Plt Count 169 MPV 10.6 H Gran % Neut % (Auto) 80.8 Lymph % (Auto) 8.2 [place] % (Auto) 8.8 Eos % (Auto) 1.2 Baso % (Auto) 0.2 Reticulocyte % (Auto) Neut # (Auto) 12.63 H Lymph # (Auto) 1.3 [place] # (Auto) 1.4 H Eos # (Auto) 0.2 Baso # (Auto) 0.0 Absolute Gran (auto) Nucleated RBC % (auto) 0 Nucleated RBCs # 0.0 Sodium 140 Potassium 4.3 Chloride 109 H Carbon Dioxide 26 Anion Gap 9.3 BUN 7 Creatinine 0.5 GFR Calculation 129.1 Glucose 78 POC Glucose Calculated Osmolality 285 Calcium 8.2 L Phosphorus Magnesium 1.7 Total Bilirubin 0.9 AST 24 ALT 20 Alkaline Phosphatase 138 H Total Protein 5.9 L Albumin 2.6 L Globulin 3.3 Vitamin B12 Folate Vancomycin Trough Misc Test Reference Blood Type Rho(D) Type Antibody Screen Crossmatch Micro: Microbiology 04/27/20 15:00 Catheter Tip Culture - Preliminary Other Source Cardiac Studies: No Data to Display
[2020-04-30] MEDS: budesonide 0.5 mg/2 mL Neb INHALATION ×2 (09:11→20:12)
[2020-04-30] MEDS: iron sucrose 200 MG in sodium chloride 0.9% (100 ml) 100 ML 100 MG IV (09:29)
[2020-04-30] MEDS: FUROsemide 10 mg/mL SDV 2mL 20 MG IVP (09:37)
--- NOTE | 2020-04-30 12:40 | PM.OP ---
Operative Report Date of procedure: April 30, 2020 Pre-op Diagnosis: Abdominal Wall wound with controlled fascial dehiscence Pre-op Diagnosis: Pre-debridement measurements 24x9.5x7.5 cm Post-op diagnosis: same Procedure Done: Sharp debridement of abdominal wall wound to the fascial layer Application of wound VAC(vacuum-assisted closure) including white foam followed by black foam Implants: Wound VAC including white and black foam Specimens removed/disposition: #1. Tissues for cultures and sensitivities #2 fluid from the deep wound for cultures and sensitivities #3 pelvic drain tip sent for cultures and sensitivities Surgeon: Toño Villegas Telecommunications Manager: customer support technician Macario Circulating nurse Yasmeen Anesthesia: MAC (Vanita Woods) Estimated blood loss (mL): 5 Condition: stable Disposition: ICU Brief History: This is 54 years old female patient with controlled fascial dehiscence status post exploratory laparotomy for perforated viscus 04/13/2020. Procedure: After identifying the patient in the ICU, patient was then taken to the operative suite, was placed in supine position, IV antibiotics were already on board on therapeutic basis,IV propofol was infused by the anesthesia provider, wound VAC was removed and the previously placed piece of Adaptic also the residual skin nico were all removed, following that prep and drape of the nisha abdominal wound region was done under the usual sterile technique. Time-out was done verifying the patient's name/date of /planned procedure and destination after the procedure, all were in agreement. Started by excising the unhealthy tissues of the wound include subcutaneous tissues and fascia, special attention was deviated towards the inferior part of the wound where there is a controlled fascial dehiscence yet there was no evidence of succus or feculent material or bleeding.At this point I did decide to remove the left lower abdominal drain and send the tip for culture. Also tissues were sent for cultures and fluid from the deep part of the wound were sent for cultures and sensitivities which was serosanguinous.There was no evidence of pus,residual PDS sutures were removed from the wound bed as well. Wound measurements ; Pre Debridement measurements; 24 cmx9.5x7.5 cm Post-debridement measurement; The same all the way to the fascial layer Sharp debridement all the way to the healthier subcutaneous level and fascial layer Copious irrigation of the wound was done with warm saline using 3 L Pulsavac, followed by appropriate hemostasis, attention now was deviated towards placement of the wound VAC.2 large pieces of white foam were placed at the depth of the wound particularly the cephalad part followed by a single large black foam placed in the wound after appropriate skin care with chloroprep.Placement of the layers coming with the wound VAC accordingly. Tubing connected and the wound VAC was powered on.Pressure initiated 125 mmHg continuous and there was no evidence of leak.And fresh canister was inserted,. Count of needles instruments and sponges were completed at the end of the procedure Patient tolerated the procedure well without complication and transferred directly to the ICU I was present for the whole entire procedure
--- NOTE | 2020-04-30 13:39 | PC.CHAP ---
Pastoral Care Encounter/Spiritual Assessment Type of Contact [] Declined seamark advanced operator maintainer visit [] Patient/Family/Request visit [] Outpatient visit [] Follow-up visit [] Physician referral [] Code/Alert [] Routine visit [] Staff referral [] Actively dying [] Patient sleeping [] Family support [] [] Out of room [] Palliative care [] [x] Receiving care in room [] Pre-surgical visit [] Trauma [x] Long length of stay [x] ICU visit [] Other: Relational/Emotional Strength [] Patient feels connected with others/family/visitors/staff [] Distress [] Loneliness/isolation [] Abandonment Spirituality of Patient [] Person of Bea [] Attends Anabaptism of their Bea [] Believes in Prayer [] Reads Bible or Denominational materials [] There are Spiritual issues to be addressed Lumber Salvager Interventions [] Prayer [] Active listening [] Non-anxious presence [] Spiritual/emotional support [] Crisis/trauma care [] Spiritual counseling [] Bereavement support [] Provided bereavement packet [] Provided Bible/devotional materials [] Provided toy/stuffed animal, coloring book to patient or family member [] Provided Communion [] Anointing/[place] [] Salvation [] Completed spiritual assessment [] Other: Impact on Illness or Injury [] Angry [] Fearful [] Anxious [] Often cries [] Exhaustion [] Unable to work [] Unable to attend latter day [] Unable to walk/stand [] Unable to read [] Unable to drive [] Unable to eat/drink [] Unable to sleep [] Unable to be with family [] Patient intubated [] Other: Summary Patient was busy at the time of the seamark advanced operator maintainer visit. Lumber Salvager referred patient to the on-coming seamark advanced operator maintainer for a follow- up visit. Patient visit attempted by Lumber Salvager Niranjan Venegas Time spent with patient 4 minutes
--- NOTE | 2020-04-30 13:40 | ANE.PACU2 ---
Inpatient post-anesthesia follow up: Airway intact: Yes Vital signs: Temperature 98.7 F Pulse Rate [Monito r] 101 Pulse Rate [Curren t] 79 Pulse Rate 83 Respiratory Rate [ Current] 22 Respiratory Rate 16 Blood Pressure [Ri ght Arm] 92/65 Blood Pressure 112/64 Pulse Oximetry [Cu rrent] 95 Pulse Oximetry 98 Oxygen Delivery Me thod Oxymask Oxygen Flow Rate [ Current] 25 Oxygen Flow Rate 10 Fraction of Inspir ed Oxygen [ 30 Current] Fraction of Inspir ed Oxygen 30 Hydration adequate: Yes Nausea and vomiting: No Pain level: 3 Mental status: Baseline
[2020-04-30] MEDS: enoxaparin 40 mg/0.4 mL Syringe SUBCUT (15:09)
[2020-04-30] MEDS: HYDROcodone-acetaminophen 5-325 mg Tablet 1 TAB PO (15:52)
--- NOTE | 2020-04-30 16:21 | P.PN_ITS ---
Subjective Subjective: Interval history: No acute events overnight. On examination lying comfortably in bed. Denies of any nausea, vomiting, headache. Has remained hemodynamically stable and afebrile. Plan for patient to go to the OR for abdominal washout today with Dr. Villegas. Discussed in detail with patient regarding discharge planning and need need for patient for further rehab because of severe generalized deconditioning and postoperative status. Patient has agreed to go to [place]. Vitals/I&O/Wt Last Vital Signs Temp 99.1 F 04/30/20 13:05 Pulse 78 04/30/20 16:00 Resp 20 H 04/30/20 16:00 BP 125/76 04/30/20 16:00 Pulse Ox 92 04/30/20 16:00 04/30/20 04/30/20 04/30/20 06:59 14:59 22:59 Intake Total 350 / 3136 125 / 125 Output Total 615 / 1375 1170 / 1170 Balance -265 / 1761 -1045 / -1045 Physical Exam Narrative: EXAM NARRATIVE: General: No acute distress, AO x3 HEENT: PERRLA, pupils bilaterally equal and reactive Chest: Normal vesicular breath sounds, no added sounds, equal good air entry bilaterally CVS: S1-S2 regular, no murmurs, no tachycardia, no gallops, no rubs Abdomen: Soft, nontender except at the incision site, moderately distended abdomen, no rigidity, possible dehiscence of the lower part of the incision,bowel sounds present but sluggish Neuro: No focal deficits, no facial deformity, AO x3, power 5/5 in all limbs Urinary Catheter Management^: Romano: Cath Placed During This Visit: yes, but has since been removed by the nurse Reason for Continuing Indwelling Catheter: Accurate Measurement of Urinary Output in Critically Ill Patients Urinary Catheter Date of Insertion: 04/19/20 Urinary Catheter Time of Insertion: 08:51 Date Urinary Catheter Removed: 04/19/20 Time Urinary Catheter Discontinued: 08:28 Data : 05/01/20 04:24 05/01/20 04:24 Micro: Microbiology 04/27/20 15:00 Catheter Tip Culture - Preliminary Other Source A&P Assessment and plan (1) Bowel perforation: Status: Resolved (2) Peritonitis (acute) generalized: Status: Acute (3) Septic shock: Status: Resolved (4) Acute respiratory failure with hypoxia: Status: Acute (5) COPD (chronic obstructive pulmonary disease): Status: Acute Qualifiers: COPD type: unspecified COPD Qualified Code(s): J44.9 - Chronic obstructive pulmonary disease, unspecified (6) Leukocytosis, unspecified: Status: Acute Qualifiers: Leukocytosis type: leukemoid reaction Qualified Code(s): D72.823 - Leukemoid reaction (7) Shock liver: Improved Status: Acute (8) Major depressive disorder, recurrent severe without psychotic features: Status: Chronic Additional A&P Information Bowel perforation: Post exploratory laparotomy for bowel perforation on April 13. Advance diet, management of drain, wound VAC, anticoagulation as per Dr. Villegas. Case discussed with Dr. Villegas. Septic shock: Resolved, acute respiratory failure with hypoxia requiring intubation: Resolved. Keep saturation over 90%, mean arterial pressure over 65 mmHg. Monitor urine output. For now continue with Romano catheterization. For now we will continue with vancomycin and imipenem, oral fluconazole. Patient's wound culture growing staph epidermidis and Jocelyn. Greatly appreciate Dr. Villegas's and Dr. Meza's recommendations. Leukocytosis persistent but trending down slowly. Most likely reactive. Patient has remained afebrile and hemodynamically stable. No signs of pneumonia. If leukocytosis continues we will have to do repeat abdominal imaging to rule out any collection. Case discussed with Dr. Villegas. He states patient has a possible necrotic wound dehiscence at the lower part. Plan would be to take patient to the OR on Sunday evening for possible minimal wound exploration and if needed abdominal wash. If patient has fever or worsening leukocytosis we will plan to repeat imaging. Check C. difficile if patient has diarrhea. Will decrease dose of [place] to 325/5 1 tab. Patient mostly likely drowsy b/c of over sedation. Decrease dose of Celexa to 20 mg. Anemia: Hb worsening, With patient appearing tired will transfuse 2 unit PRBC as patient planned for OR in AM. Check retic count, folate level, Vit B12. Replete as needed. Monitor hemoglobin. Iron panel suggestive of severe iron deficiency anemia. Start patient on IV iron supplementation. Day 3/5 today. Severe Protein Energy malnutrition: Nutrition consult. Ensure with meals. Hypertension: Goal blood pressure less than 140/90 mmHg. Hold off on antihypertensives for now. Continue with chronic home medications like statin, Xanax, fenofibrate, gabapentin, Vistaril, trazodone. We will replete electrolytes accordingly. We will try to keep potassium around 4 with magnesium over 2. Full code. SCDs for DVT prophylaxis. Soft mechanical diet. Attestations Medical Necessity Statement*: Bowel perforation, shock Procedures Arterial Line Size (Gauge): 20 Coding Level of Care Code Acute Sales Architect for [facility] Fw Diagnoses Bowel perforation K63.1 Peritonitis (acute) generalized K65.0 Septic shock A41.9; R65.21 Acute respiratory failure with hypoxia J96.01 COPD (chronic obstructive pulmonary disease) J44.9 COPD type: unspecified COPD Leukocytosis, unspecified D72.823 Leukocytosis type: leukemoid reaction Shock liver K72.00 Major depressive disorder, recurrent severe without psychotic features F33.2
--- NOTE | 2020-04-30 16:24 | PC.NURSE ---
PATIENT WAS ALERT AND ORIENTATED THIS AM. SHE ATTEMPTED TO REFUSE TO WALK WITH PT BUT WE ENCOURAGED HER THAT IN ORDER TO GET HOME AND NOT GO TO A [facility] OR REHAB SHE MUST WALK WHENEVER POSSIBLE. SHE RECIEVED LASIX 0900 AND WAS UP TO VOID 4X BEFORE HER NOON SURGERY/WOUND VAC CHANGE AND WASH OUT. SHE RETURNED ON 10 L MASK AND I DECREASED IT TO 6 LITERS AROUND 1500 . SHE REMOVED THE MASK AND WAS FOUND SATING 79 ON RA, NC PLACED AND WAS MORE ACCEPTED BY PATIENT. SHE WAS TOO GROGGY TO REALIZE SHE WAS INCONNTINENT AND HER BED WAS CHANGED 3X. SHE WAS UNABLE TO VOID ON THE BEDPAN WHEN OFFERED SO SHE DID ON A PAD. HER SISTER WAS UPDATED BY THE SURGEON AND MYSELF. DR FUENTES CAME FOR AN UPDATE AT 1630.
--- NOTE | 2020-04-30 17:07 | PM.PN ---
Subjective Subjective: Interval history: Patient resting in bed after surgery continue to have stable vital signs Vitals/I&O/Wt Last Vital Signs Temp 99.1 F 04/30/20 13:05 Pulse 78 04/30/20 16:00 Resp 20 H 04/30/20 16:00 BP 125/76 04/30/20 16:00 Pulse Ox 92 04/30/20 16:00 04/30/20 04/30/20 04/30/20 06:59 14:59 22:59 Intake Total 350 / 3136 125 / 125 250 / 375 Output Total 615 / 1375 1170 / 1170 Balance -265 / 1761 -1045 / -1045 250 / -795 Physical Exam Narrative: EXAM NARRATIVE: Patient is recovering from anesthesia BMI 33.2 Abdomen wound VAC in place without complication Urinary Catheter Management^: Romano: Cath Placed During This Visit: yes, but has since been removed by the nurse Reason for Continuing Indwelling Catheter: Accurate Measurement of Urinary Output in Critically Ill Patients Urinary Catheter Date of Insertion: 04/19/20 Urinary Catheter Time of Insertion: 08:51 Date Urinary Catheter Removed: 04/19/20 Time Urinary Catheter Discontinued: 08:28 Data : 04/30/20 04:00 04/30/20 04:00 Micro: Microbiology 04/27/20 15:00 Catheter Tip Culture - Preliminary Other Source A&P Assessment and plan (1) Bowel perforation: Patient is a status post exploratory laparotomy for bowel perforation 04/13/2020 Continue optimize nutrition by adding protein shakes 3 to 4 cans a day/regular diet Continue wound VAC therapy Turning and repositioning patient in bed every 2 hours and I would highly recommend to get an air mattress to prevent further any potential breakdown.Hydrofera Blue to be applied daily at the site of the left perianal area. Continue physical therapy Assurance and education All questions have been answered and all concerns have been addressed to patient's satisfaction. Family updates as I did talk today after surgery with Ms. Jade Jones's sister Dr. Ray santana will be rounding over the weekend Status: Resolved Attestations Medical Necessity Statement*: Medical necessity care is expected to cross 2 midnights because of continuous need of wound care and close observation in the ICU setting. Time Spent in Patient Care: (>than 50% of time spent in counselling and/or direct pt care on unit). Procedures Arterial Line Size (Gauge): 20 Coding Level of Care Code Acute Open Die Inspector for Chg Fwd Diagnoses Bowel perforation K63.1
--- NOTE | 2020-04-30 17:25 | PC.OT ---
OT treatment attempted. Pt gone to surgical procedure, will attempt to resume treatment again tomorrow.
[2020-04-30] MEDS: atorvastatin 40 mg Tablet PO (21:08)
[2020-04-30] MEDS: fenofibrate 145 mg Tablet PO (21:08)
[2020-05-01] VITALS (55 sets, daily range): BP systolic 119–156; BP diastolic 63–104; PULSE 73–94; RESP 12–27; TEMP 36.7–37.1; O2SAT 90–99
[2020-05-01] MEDS: vancomycin 1,000 MG in sodium chloride 0.9% 250 ML 250 MG IV (00:28)
[2020-05-01] MEDS: ipratropium-albuterol 3 mL Neb INHALATION ×4 (03:10→20:00)
[2020-05-01 04:38] LABS: Basophils % 0.2 %; Eosinophils # 0.2 10^3/uL (0.0-0.8); Eosinophils % 1.4 %; Hematocrit 32.1 % (37.0-47.0); Hemoglobin 9.7 g/dL (11.5-15.3); Lymphocytes # 1.1 10^3/uL (0.8-4.8); Lymphocytes % 8.8 %; Mean Corpuscular HGB Conc 30.2 g/dL (30.0-36.0); Mean Corpuscular Hemoglobin 29.3 pg (28.0-34.0); Mean Platelet Volume 9.7 fL (7.4-10.4); Monocytes # 1.3 10^3/uL (0.2-0.9); Monocytes % 10.4 %; Neutrophils # 9.85 10^3/uL (1.8-7.7); Neutrophils % 78.6 %; Nucleated Red Blood Cells % 0 %; Platelet Count 157 10^3/cmm (130-400); Red Blood Count 3.31 10^6/uL (4.1-5.3); Red Cell Distribution Width 16.8 % (12.1-15.1); White Blood Count 12.5 10^3/uL (4.0-10.0)
[2020-05-01 05:05] LABS: Alanine Aminotransferase 17 U/L (0-33); Albumin Level 2.6 g/dL (3.5-5.2); Alkaline Phosphatase 137 IU/L (35-105); Aspartate Amino Transferase 20 U/L (0-32); Blood Urea Nitrogen 10 mg/dL (6-20); Calcium 8.3 mg/dL (8.5-10.5); Carbon Dioxide 28 mmol/L (22-29); Chloride 109 mmol/L (98-107); Globulin 3.5 g/dL (1.3-4.6); Glomerular Filtration Rate 104.6 mL/min (90-130); Glucose 88 mg/dL (65-115); Osmolality Calculated 293 mOsm/kg (285-295); Sodium 144 mmol/L (136-145); Total Bilirubin 0.8 mg/dL (0.15-1.2); Total Protein 6.1 g/dL (6.6-8.7)
--- NOTE | 2020-05-01 06:05 | PC.NURSE ---
SHIFT SUMMARY Patient has rested well this shift. Patient has been sinus rhythm in the 80's this shift with occasional PVC's. Patient has had 400 mL measured urine output this shift with one incontinent void. Assisted to BSC with minimal assistance. 150 mL out of wound vac. Patient has denied any pain this shift.
--- NOTE | 2020-05-01 07:47 | P.PN_ITS ---
Subjective Subjective: Interval history: In last 24 hours patient has been taken to the OR for bowel wash. She tolerated the procedure well. No acute events overnight. She denies of any nausea, vomiting, headache. Lying comfortably in bed. Discussed in detail with patient regarding need of good physical therapy. Medications: Reviewed: Yes Vitals/I&O/Wt Last Vital Signs Temp 98.7 F 05/01/20 00:30 Pulse 89 05/01/20 07:30 Resp 18 05/01/20 07:30 BP 126/76 05/01/20 07:30 Pulse Ox 97 05/01/20 07:30 04/30/20 05/01/20 05/01/20 22:59 06:59 14:59 Intake Total 560 / 685 350 / 1035 120 / 120 Output Total 400 / 1570 150 / 1720 Balance 160 / -885 200 / -685 120 / 120 Physical Exam Narrative: EXAM NARRATIVE: General: No acute distress, AO x3 HEENT: PERRLA, pupils bilaterally equal and reactive Chest: Normal vesicular breath sounds, no added sounds, equal good air entry bilaterally CVS: S1-S2 regular, no murmurs, no tachycardia, no gallops, no rubs Abdomen: Soft, nontender except at the incision site, moderately distended abdomen, no rigidity, possible dehiscence of the lower part of the incision,bowel sounds present but sluggish Neuro: No focal deficits, no facial deformity, AO x3, power 5/5 in all limbs Urinary Catheter Management^: Romano: Cath Placed During This Visit: yes, but has since been removed by the nurse Reason for Continuing Indwelling Catheter: Accurate Measurement of Urinary Output in Critically Ill Patients Urinary Catheter Date of Insertion: 04/19/20 Urinary Catheter Time of Insertion: 08:51 Date Urinary Catheter Removed: 04/19/20 Time Urinary Catheter Discontinued: 08:28 Data : 05/01/20 04:24 05/01/20 04:24 Micro: Microbiology 04/30/20 12:21 Gram Stain - Final Abdomen 04/30/20 12:21 Gram Stain - Final Other Source 04/30/20 12:21 Gram Stain - Final Other Source 04/27/20 15:00 Catheter Tip Culture - Preliminary Other Source A&P Assessment and plan (1) Acute respiratory failure with hypoxia: Secondary to pneumonia. Status: Acute (2) COPD (chronic obstructive pulmonary disease): Status: Acute Qualifiers: COPD type: unspecified COPD Qualified Code(s): J44.9 - Chronic obstructive pulmonary disease, unspecified (3) Leukocytosis, unspecified: Status: Acute Qualifiers: Leukocytosis type: leukemoid reaction Qualified Code(s): D72.823 - Leukemoid reaction (4) Shock liver: Improved Status: Acute (5) Septic shock: Status: Resolved (6) Bowel perforation: Status: Resolved (7) Major depressive disorder, recurrent severe without psychotic features: Status: Chronic (8) Peritonitis (acute) generalized: Status: Acute Additional A&P Information Bowel perforation: Post exploratory laparotomy for bowel perforation on April 13 and further bowel wash on April 30, 2020. Advance diet, management of drain, wound VAC, anticoagulation as per Dr. Villegas. Case discussed with Dr. Villegas. Septic shock: Resolved, acute respiratory failure with hypoxia requiring intubation: Resolved. Keep saturation over 90%, mean arterial pressure over 65 mmHg. Monitor urine output. For now continue with Romano catheterization. Patient's blood cultures remain negative. Patient has reviewed received almost more than 2 days of vancomycin and imipenem now. Repeat cultures have been sent from the OR yesterday. Patient has remained hemodynamically stable and afebrile. For now we will plan to switch over to oral Augmentin and Levaquin. Will discuss with ID regarding the same. Patient's wound culture growing staph epidermidis and Jocelyn. Greatly appreciate Dr. Villegas's and Dr. Meza's recommendations. Leukocytosis trending down. Most likely reactive. Patient has remained afebrile and hemodynamically stable. No signs of pneumonia. If leukocytosis continues we will have to do repeat abdominal imaging to rule out any collection. Case discussed with Dr. Villegas. Going forward the plan would be to monitor patient on oral antibiotics for next 48 hours and if patient remains hemodynamically stable, afebrile then to discharge. If patient has fever or worsening leukocytosis we will plan to repeat imaging. Check C. difficile if patient has diarrhea. Will decrease dose of [place] to 325/5 1 tab. Patient mostly likely drowsy b/c of over sedation. Decrease dose of Celexa to 20 mg. Anemia: Hemoglobin stable after 2 units of transfusion. Hb worsening, With patient appearing tired will transfuse 2 unit PRBC as patient planned for OR in AM. Check retic count, folate level, Vit B12. Replete as needed. Monitor hemoglobin. Iron panel suggestive of severe iron deficiency anemia. Last day of iron supplementation today. Severe Protein Energy malnutrition: Nutrition consult. Ensure with meals. Hypertension: Goal blood pressure less than 140/90 mmHg. Hold off on antihypertensives for now. Continue with chronic home medications like statin, Xanax, fenofibrate, gabapentin, Vistaril, trazodone. We will replete electrolytes accordingly. We will try to keep potassium around 4 with magnesium over 2. Full code. SCDs for DVT prophylaxis. Soft mechanical diet. Discharge planning: Most likely patient will be discharged to [facility] in next 48 hours the patient continues to remain hemodynamically stable and afebrile. Attestations Medical Necessity Statement*: Bowel perforation, postoperative status. Time Spent in Patient Care: Greater than 35 minutes (>than 50% of time spent in counselling and/or direct pt care on unit) . Procedures Arterial Line Size (Gauge): 20 Coding Level of Care Code Acute Guest Service Agent for [facility] Fwd Diagnoses Acute respiratory failure with hypoxia J96.01 COPD (chronic obstructive pulmonary disease) J44.9 COPD type: unspecified COPD Leukocytosis, unspecified D72.823 Leukocytosis type: leukemoid reaction Shock liver K72.00 Septic shock A41.9; R65.21 Bowel perforation K63.1 Major depressive disorder, recurrent severe without psychotic features F33.2 Peritonitis (acute) generalized K65.0
--- NOTE | 2020-05-01 07:57 | ECG_ITS ---
[facility] Test Date: 2020-05-01 Pat Name: Irma Jones Department: Room: ICU11 Gender: Female Com Writer: : 1965 Requested By: Jailene Meza Order Number: [id number] Lyon MD: Elicia Chaudhry M.D. Measurements Intervals [place]an Rate: 82 P: 62 HI: 145 QRS: -9 QRSD: 101 T: 31 QT: 367 QTc: 430 Interpretive Statements SINUS RHYTHM ANTERIOR MYOCARDIAL INFARCTION [40+ ms Q WAVE AND/OR ST/T ABNORMALITY IN V3/V4], PROBABLY RECENT Compared to ECG 04/13/2020 21:31:31 Myocardial infarct finding now present Left-axis deviation no longer present Intraventricular conduction delay no longer present Electronically Signed On 05-01-2020 13:21:30 CDT by Elicia Chaudhry M.D. [id number]
[2020-05-01] MEDS: budesonide 0.5 mg/2 mL Neb INHALATION ×2 (08:03→19:58)
[2020-05-01] MEDS: gabapentin 300 mg Capsule PO ×2 (08:28→17:18)
[2020-05-01] MEDS: multivitamin therapeutic Tablet 1 TAB PO (08:29)
[2020-05-01] MEDS: magnesium oxide 400 mg tablet PO ×2 (08:29→17:18)
[2020-05-01] MEDS: amoxicillin-clav 875-125 mg Tablet 1 TAB PO ×2 (08:29→17:18)
[2020-05-01] MEDS: fluconazole 100 mg Tablet 400 MG PO (08:29)
[2020-05-01] MEDS: citalopram 20 mg Tablet PO (08:30)
[2020-05-01] MEDS: folic acid 1 mg Tablet PO ×2 (08:31→17:18)
[2020-05-01] MEDS: iron sucrose 200 MG in sodium chloride 0.9% (100 ml) 100 ML 220 MG IV (08:31)
[2020-05-01] MEDS: pantoprazole 40 mg SDV IVP (08:31)
[2020-05-01] MEDS: hyDROXYzine 25 mg Capsule 50 MG PO (08:42)
--- NOTE | 2020-05-01 08:57 | PC.NURSE ---
Agitated Patient agitated, asked for Xanax. Patient states she hasn't slept in days, can't sleep at night, and she can't get any rest around here. Looked on MAR for Xanax and not on list. Patient was on Xanax day prior. Asked patient if she would take Vistaril and patient was agreeable. Told patient that last time she took Xanax she was extremely sleepy and was incontinent because she was too sleepy to wake up. Patient again agitated that she can't have Xanax. I said we will discuss this with the Dr today. Patient states, we sure as hell will . Patient given Vistaril.
--- NOTE | 2020-05-01 09:11 | PC.NURSE ---
EKG done at 0810 reads Sinus rhythm, anterior myocardial infarction, probably recent, ACUTE MT EKG is normal sinus rhythm, no ST elevation. Dr. Desir notified by RT about EKG. Patient has no complaints of chest pain, no shortness of breath, not diaphoretic, no n/v, no shoulder/jaw pain. Patient reports no acute changes. Vitals stable. Will continue to assess.
--- NOTE | 2020-05-01 09:28 | DCPLANNER ---
Pg 2 of IM updated and reviewed with pt. No questions, copy provided.
--- NOTE | 2020-05-01 11:26 | PC.NURSE ---
Sleep Patient allowed to sleep 2.5 hours uninterrupted. Patient woke up for lunch. Updated pt that her sister, Jade, called and will call back.
[2020-05-01] MEDS: enoxaparin 40 mg/0.4 mL Syringe SUBCUT (17:17)
--- NOTE | 2020-05-01 19:00 | PC.NURSE ---
Received report on patient from PJ. AMEZQUITA. Assumed care at this time.
[2020-05-01] MEDS: fenofibrate 145 mg Tablet PO (21:12)
[2020-05-01] MEDS: atorvastatin 40 mg Tablet PO (21:12)
--- NOTE | 2020-05-01 21:42 | PC.NURSE ---
Turned on her call light and stated she had to use the bathroom. Up to BSC with assist x 1. Patient had a small loose BM and urinated without difficulty.
[2020-05-02] VITALS (27 sets, daily range): BP systolic 133–171; BP diastolic 70–109; PULSE 80–100; RESP 16–29; TEMP 36.6; O2SAT 85–97
--- NOTE | 2020-05-02 02:13 | PC.NURSE ---
Complete bed bath given. Dressing change done to bilateral drain sites. Abdominal binder reapplied. Complete linen change done. Patient tolerated well.
[2020-05-02] MEDS: hyDROXYzine 25 mg Capsule PO (02:55)
[2020-05-02] MEDS: ipratropium-albuterol 3 mL Neb INHALATION ×3 (02:59→14:20)
[2020-05-02 04:46] LABS: Basophils % 0.2 %; Eosinophils # 0.1 10^3/uL (0.0-0.8); Eosinophils % 1.3 %; Hematocrit 32.7 % (37.0-47.0); Lymphocytes # 1.2 10^3/uL (0.8-4.8); Mean Corpuscular HGB Conc 30.6 g/dL (30.0-36.0); Mean Corpuscular Volume 94.8 fL (81-99); Mean Platelet Volume 9.8 fL (7.4-10.4); Monocytes # 1.1 10^3/uL (0.2-0.9); Monocytes % 11.1 %; Neutrophils # 7.61 10^3/uL (1.8-7.7); Neutrophils % 74.4 %; Nucleated Red Blood Cells % 0 %; Platelet Count 166 10^3/cmm (130-400); Red Blood Count 3.45 10^6/uL (4.1-5.3); Red Cell Distribution Width 16.4 % (12.1-15.1); White Blood Count 10.2 10^3/uL (4.0-10.0)
[2020-05-02 05:03] LABS: Alanine Aminotransferase 14 U/L (0-33); Albumin Level 2.6 g/dL (3.5-5.2); Alkaline Phosphatase 142 IU/L (35-105); Anion Gap 12.5 (5-19); Aspartate Amino Transferase 28 U/L (0-32); Blood Urea Nitrogen 7 mg/dL (6-20); Calcium 8.6 mg/dL (8.5-10.5); Carbon Dioxide 28 mmol/L (22-29); Chloride 106 mmol/L (98-107); Globulin 3.3 g/dL (1.3-4.6); Glomerular Filtration Rate 104.6 mL/min (90-130); Glucose 83 mg/dL (65-115); Osmolality Calculated 291 mOsm/kg (285-295); Potassium 3.5 mmol/L (3.5-5.1); Sodium 143 mmol/L (136-145); Total Bilirubin 0.9 mg/dL (0.15-1.2); Total Protein 5.9 g/dL (6.6-8.7)
[2020-05-02] MEDS: levoFLOXacin 500 mg Tablet PO (06:39)
--- NOTE | 2020-05-02 08:11 | ANE.PACU2 ---
Inpatient post-anesthesia follow up: Airway intact: Yes Vital signs: Temperature 98.1 F Pulse Rate [Monito r] 101 Pulse Rate [Curren t] 79 Pulse Rate 94 Respiratory Rate [ Current] 22 Respiratory Rate 29 Blood Pressure [Ri ght Arm] 92/65 Blood Pressure 148/71 Pulse Oximetry [Cu rrent] 95 Pulse Oximetry 86 Oxygen Delivery Me thod Nasal Cannula Oxygen Flow Rate [ Current] 25 Oxygen Flow Rate 3 Fraction of Inspir ed Oxygen [ 30 Current] Fraction of Inspir ed Oxygen 50 Hydration adequate: Yes Nausea and vomiting: No Pain level: 8 Mental status: Baseline
[2020-05-02] MEDS: budesonide 0.5 mg/2 mL Neb INHALATION (08:30)
--- NOTE | 2020-05-02 09:49 | PM.PN ---
Subjective Subjective: Interval history: No acute events overnight. Patient is doing better. Hemodynamically patient has been stable. White count is trending down. Denies of any nausea, vomiting, headache. Complaining of occasional back pain and feeling weak. We discussed in detail for patient needing to be out of bed as much as possible. About physical therapy/Occupational Therapy. We also discussed about possible safe discharge planning. Discussed about SNF versus LTAC. Both the options were given to the patient and discussed in detail. For now patient states she would want to go to LTAC if needed. She is agreeable. Vitals/I&O/Wt Last Vital Signs Temp 97.9 F 05/02/20 08:00 Pulse 87 05/02/20 09:00 Resp 20 H 05/02/20 09:00 BP 143/78 05/02/20 09:00 Pulse Ox 97 05/02/20 09:00 05/01/20 05/02/20 05/02/20 22:59 06:59 14:59 Intake Total 350 / 580 120 / 700 Output Total 150 / 750 Balance 350 / -20 -30 / -50 Physical Exam Narrative: EXAM NARRATIVE: General: No acute distress, AO x3 HEENT: PERRLA, pupils bilaterally equal and reactive Chest: Normal vesicular breath sounds, no added sounds, equal good air entry bilaterally CVS: S1-S2 regular, no murmurs, no tachycardia, no gallops, no rubs Abdomen: Soft, nontender except at the incision site, moderately distended abdomen, no rigidity, possible dehiscence of the lower part of the incision,bowel sounds present but sluggish Neuro: No focal deficits, no facial deformity, AO x3, power 5/5 in all limbs Urinary Catheter Management^: Romano: Cath Placed During This Visit: yes, but has since been removed by the nurse Reason for Continuing Indwelling Catheter: Accurate Measurement of Urinary Output in Critically Ill Patients Urinary Catheter Date of Insertion: 04/19/20 Urinary Catheter Time of Insertion: 08:51 Date Urinary Catheter Removed: 04/19/20 Time Urinary Catheter Discontinued: 08:28 Data : 05/02/20 04:10 05/02/20 04:10 Micro: Microbiology 04/30/20 12:21 Gram Stain - Final Other Source Body Fluid Culture - Preliminary 04/30/20 12:21 Gram Stain - Final Other Source Body Fluid Culture - Preliminary 04/27/20 15:00 Catheter Tip Culture - Final Other Source 04/30/20 12:21 Gram Stain - Final Abdomen Tissue Culture - Preliminary A&P Assessment and plan (1) Acute respiratory failure with hypoxia: Secondary to pneumonia. Status: Acute (2) COPD (chronic obstructive pulmonary disease): Status: Acute Qualifiers: COPD type: unspecified COPD Qualified Code(s): J44.9 - Chronic obstructive pulmonary disease, unspecified (3) Leukocytosis, unspecified: Status: Acute Qualifiers: Leukocytosis type: leukemoid reaction Qualified Code(s): D72.823 - Leukemoid reaction (4) Shock liver: Improved Status: Acute (5) Septic shock: Status: Resolved (6) Bowel perforation: Status: Resolved (7) Major depressive disorder, recurrent severe without psychotic features: Status: Chronic (8) Peritonitis (acute) generalized: Status: Acute (9) Physical deconditioning: Status: Acute Additional A&P Information Bowel perforation: Post exploratory laparotomy for bowel perforation on April 13 and further bowel wash on April 30, 2020. Advance diet, management of drain, wound VAC, anticoagulation as per Dr. Villegas. Case discussed with Dr. Villegas. Septic shock: Resolved, acute respiratory failure with hypoxia requiring intubation: Resolved. Keep saturation over 90%, mean arterial pressure over 65 mmHg. Monitor urine output. For now continue with Romano catheterization. Wound cultures from has grown staph epidermidis and Jocelyn. Overall patient has received on 2 weeks of vancomycin and imipenem. White count has trended down. Patient has remained afebrile. Antibiotics changed to Augmentin and Levaquin yesterday. Patient has done fine on that for last 24 hours. Will discuss with ID if can discontinue Diflucan. Most likely can monitor her for next 24 hours and then plan to discharge. Patient will be going with wound VAC. Patient's blood cultures remain negative. Repeat cultures were sent from an abdominal wash on April 30. Results are awaited. Greatly appreciate Dr. Villegas's and Dr. Meza's recommendations. If patient has fever or worsening leukocytosis we will plan to repeat imaging. Check C. difficile if patient has diarrhea. Because patient is getting more drowsy with pain medication will change [place] to tramadol and see how she does. Continue Celexa at 40 mg. Change hydroxyzine to 25 mg twice daily as needed. Trazodone 200 mg at bedtime as needed. Anemia: Hemoglobin stable at 10. Patient has finished 5-day of iron IV supplementation. We will start her on oral iron supplementation. Severe Protein Energy malnutrition: Nutrition consult. Ensure with meals. Patient takes atorvastatin at home. Check lipid panel. I am not really sure the patient requires atorvastatin at present. Will restart as per the results. Hypertension: Goal blood pressure less than 140/90 mmHg. Hold off on antihypertensives for now. Continue with chronic home medications like Xanax, gabapentin, Vistaril, trazodone. We will replete electrolytes accordingly. We will try to keep potassium around 4 with magnesium over 2. Full code. SCDs for DVT prophylaxis. Soft mechanical diet. Discharge planning: Discussed in detail with patient regarding going to SNF?[place] versus LTAC for further rehabilitation. Patient agrees for now that if needed she is ready to go to LTAC. Discussed with case management as well. Attestations Medical Necessity Statement*: Bowel perforation, postop management, resolving septic shock., Anemia., Severe protein energy malnutrition, generalized deconditioning. Time Spent in Patient Care: Greater than 35 minutes (>than 50% of time spent in counselling and/or direct pt care on unit). Procedures Arterial Line Size (Gauge): 20 Coding Level of Care Code Acute Seismic Engineer for [facility] Edilson Diagnoses Acute respiratory failure with hypoxia J96.01 COPD (chronic obstructive pulmonary disease) J44.9 COPD type: unspecified COPD Leukocytosis, unspecified D72.823 Leukocytosis type: leukemoid reaction Shock liver K72.00 Septic shock A41.9; R65.21 Bowel perforation K63.1 Major depressive disorder, recurrent severe without psychotic features F33.2 Peritonitis (acute) generalized K65.0 Physical deconditioning R53.81
--- NOTE | 2020-05-02 09:59 | PC.CHAP ---
Pastoral Care Encounter/Spiritual Assessment Type of Contact [XX] Declined bedspread inspector visit [] Patient/Family/Request visit [] Outpatient visit [] Follow-up visit [] Physician referral [] Code/Alert [XX] Routine visit [] Staff referral [] Actively dying [] Patient sleeping [] Family support [] [] Out of room [] Palliative care [] [] Receiving care in room [] Pre-surgical visit [] Trauma [] Long length of stay [] ICU visit [] Other: Relational/Emotional Strength [] Patient feels connected with others/family/visitors/staff [] Distress [] Loneliness/isolation [] Abandonment Spirituality of Patient [] Person of Bea [] Attends Amish of their Bea [] Believes in Prayer [] Reads Bible or Druze materials [] There are Spiritual issues to be addressed Sales And Service Representative Interventions [] Prayer [] Active listening [] Non-anxious presence [] Spiritual/emotional support [] Crisis/trauma care [] Spiritual counseling [] Bereavement support [] Provided bereavement packet [] Provided Bible/devotional materials [] Provided toy/stuffed animal, coloring book to patient or family member [] Provided Communion [] Anointing/[place] [] Salvation [] Completed spiritual assessment [] Other: Impact on Illness or Injury [] Angry [] Fearful [] Anxious [] Often cries [] Exhaustion [] Unable to work [] Unable to attend moravian [] Unable to walk/stand [] Unable to read [] Unable to drive [] Unable to eat/drink [] Unable to sleep [] Unable to be with family [] Patient intubated [] Other: Summary: Pt is open to a visit from a bedspread inspector, but the team had just come out of her room, and she was worn out. Also, importantly, she asked that no perfumes be worn around her. Time spent with patient: 2 mins
[2020-05-02] MEDS: fluconazole 100 mg Tablet 400 MG PO (10:08)
[2020-05-02] MEDS: magnesium oxide 400 mg tablet PO (10:08)
[2020-05-02] MEDS: amoxicillin-clav 875-125 mg Tablet 1 TAB PO (10:08)
[2020-05-02 10:09] LABS: Cholesterol 45 mg/dL (0-200); HDL Cholesterol 15 mg/dL (60-100); LDL Cholesterol Calculated 12 mg/dL (50-129); Triglycerides 89 mg/dL (0-150)
[2020-05-02] MEDS: gabapentin 300 mg Capsule PO (10:09)
[2020-05-02] MEDS: folic acid 1 mg Tablet PO (10:09)
[2020-05-02] MEDS: multivitamin therapeutic Tablet 1 TAB PO (10:09)
[2020-05-02] MEDS: citalopram 20 mg Tablet 40 MG PO (10:10)
[2020-05-02] MEDS: TRAMadol 50 mg Tablet PO (10:21)
--- NOTE | 2020-05-02 10:44 | P.PN_ITS ---
Subjective Subjective: Interval history: No issues overnight, patient had a bowel movement yesterday, complains of poor appetite and being woken up multiple times last night and therefore be unable to sleep. Vitals/I&O/Wt Last Vital Signs Temp 97.9 F 05/02/20 08:00 Pulse 87 05/02/20 09:00 Resp 20 H 05/02/20 09:00 BP 143/78 05/02/20 09:00 Pulse Ox 97 05/02/20 09:00 05/01/20 05/02/20 05/02/20 22:59 06:59 14:59 Intake Total 350 / 700 120 / 700 Output Total 150 / 750 Balance 350 / -50 -30 / -50 Physical Exam Narrative: EXAM NARRATIVE: Abdomen: Soft, tender, nondistended, wound VAC on the midline laparotomy wound. Dressings of the drain site were changed Urinary Catheter Management^: Romano: Cath Placed During This Visit: yes, but has since been removed by the nurse Reason for Continuing Indwelling Catheter: Accurate Measurement of Urinary Output in Critically Ill Patients Urinary Catheter Date of Insertion: 04/19/20 Urinary Catheter Time of Insertion: 08:51 Date Urinary Catheter Removed: 04/19/20 Time Urinary Catheter Discontinued: 08:28 Data : 05/02/20 04:10 05/02/20 04:10 Micro: Microbiology 04/30/20 12:21 Gram Stain - Final Other Source Body Fluid Culture - Preliminary 04/30/20 12:21 Gram Stain - Final Other Source Body Fluid Culture - Preliminary 04/27/20 15:00 Catheter Tip Culture - Final Other Source 04/30/20 12:21 Gram Stain - Final Abdomen Tissue Culture - Preliminary A&P Assessment and plan (1) Bowel perforation: Patient is a status post exploratory laparotomy for bowel perforation 04/13/2020, status post wound VAC placement on 04/30/2020 WBC down to 10.2 today, patient has been afebrile, patient is currently on Augmentin, fluconazole and Levaquin Anemia: Hemoglobin stable at 10 Patient is complaining of poor appetite, encouraged her to at least take the Ensure 3-4 times a day if she does not feel like eating regular food Continue wound VAC therapy physical therapy as the eventual goal is to place her in an LTAC Encourage incentive spirometry to wean her off the oxygen, she is currently on 3 L Patient will need continued inpatient stay to ensure resolution of leukocytosis and for wound care Status: Resolved Attestations Medical Necessity Statement*: Status post ex lap for perforated bowel requiring continued inpatient stay for antibiotics and wound care Procedures Arterial Line Size (Gauge): 20 Coding Level of Care Code Acute Dehydrating Press Operator for Ch[facility] Fwd Diagnoses Bowel perforation K63.1
--- NOTE | 2020-05-02 14:38 | PM.DCS ---
Discharge Providers Date of Admission: 04/14/20 00:30 Date of Discharge: May 02, 2020 Attending Provider at Admission: Toño Villegas MD Attending Provider at Discharge: Navi Desir MD Consults: Surgery: ID: Dr. Meza Pulmonology: Dr. Mcneal Diagnoses at Discharge Discharge Diagnosis (1) Bowel perforation: Status: Resolved (2) Physical deconditioning: Status: Acute (3) Peritonitis (acute) generalized: Status: Acute (4) Acute respiratory failure with hypoxia: Status: Acute (5) Hypernatremia: Status: Acute (6) COPD (chronic obstructive pulmonary disease): Status: Acute Qualifiers: COPD type: unspecified COPD Qualified Code(s): J44.9 - Chronic obstructive pulmonary disease, unspecified (7) Pneumonia: Status: Acute Qualifiers: Pneumonia type: due to unspecified organism Laterality: bilateral Lung location: lower lobe of lung Qualified Code(s): J18.9 - Pneumonia, unspecified organism (8) Leukocytosis, unspecified: Status: Acute Qualifiers: Leukocytosis type: leukemoid reaction Qualified Code(s): D72.823 - Leukemoid reaction (9) Hyponatremia: Status: Acute (10) Hypotension: Status: Acute (11) Acute anemia: Status: Acute (12) Shock liver: Status: Acute (13) Rhabdomyolysis: Status: Acute (14) Liver enzyme elevation: Status: Acute (15) Hypokalemia: Status: Acute (16) Septic shock: Status: Resolved (17) Generalized anxiety disorder: Status: Chronic (18) Major depressive disorder, recurrent severe without psychotic features: Status: Chronic Reason for Visit Reason for Visit: STOMACH PAIN Physical Exam Narrative: EXAM NARRATIVE: General: No acute distress, AO x3 HEENT: PERRLA, pupils bilaterally equal and reactive Chest: Normal vesicular breath sounds, no added sounds, equal good air entry bilaterally CVS: S1-S2 regular, no murmurs, no tachycardia, no gallops, no rubs Abdomen: Soft, nontender except at the incision site, moderately distended abdomen, no rigidity, wound vac present Neuro: No focal deficits, no facial deformity, AO x3, power 5/5 in all limbs Urinary Catheter Management^: Romano: Cath Placed During This Visit: yes, but has since been removed by the nurse Reason for Continuing Indwelling Catheter: Accurate Measurement of Urinary Output in Critically Ill Patients Urinary Catheter Date of Insertion: 04/19/20 Urinary Catheter Time of Insertion: 08:51 Date Urinary Catheter Removed: 04/19/20 Time Urinary Catheter Discontinued: 08:28 Discharge Data Data Completed and Pending: Completed Studies During Hospitalization Category Date Time Status CT abdomen pelvis w con* 33623 Urge nt Cat Scan 04/13/20 19:[address] abdomen pelvis wo con 88379 Rout ine Cat Scan 04/18/20 07:[address] chest abd pel wo con Stat Cat Scan 04/22/20 08:04 Completed CXRP [XR chest 1V portable 55201] R outine Exams 04/14/20 08:15 Completed CXRP [XR chest 1V portable 57113] R outine Exams 04/21/20 08:39 Completed CXRP [XR chest 1V portable 01886] S tat Exams 04/14/20 07:39 Completed XR KUB portable 7 4018 Stat Exams 04/20/20 06:04 Completed XR chest 1V les ble 18113 Routine Exams 04/15/20 06:02 Completed XR chest 1V les ble [id number] Routine Exams 04/17/20 07:11 Completed XR chest 1V les ble 24170 Routine Exams 04/26/20 12:35 Completed XR chest 1V les ble 00437 Stat Exams 04/14/20 04:47 Completed XR chest 1V les ble 06206 Stat Exams 04/20/20 03:10 Completed CV echo complete* [id number] Routine Ultrasound 04/15/20 09:01 Completed Pending at discharge Category Date Time Status ES surgery / GI i mages Routine Exams 04/20/20 08:48 Ordered Blood Culture AM LABS Lab 04/28/20 03:45 Results Body Fluid Cultur e & GS Routine Lab 04/30/20 12:21 Results Body Fluid Cultur e & GS Routine Lab 04/30/20 12:21 Results Body Fluid Cultur e & GS Stat Lab 04/20/20 10:05 Results Complete Blood Co unt w/Auto AM LABS Lab 05/03/20 04:00 Ordered Comprehensive Met abolic Panel AM LA BS Lab 05/03/20 04:00 Ordered Fungal Culture no t HR/SK/BL Routine Lab 04/20/20 08:51 Results Mycobacteria, Cul ture w/Fluor Routi ne Lab 04/20/20 08:51 Results Tissue Culture an d Gram Stain Routi ne Lab 04/30/20 12:21 Results Viral Culture Res piratory Routine Lab 04/20/20 08:51 Received Labs from last 24 hours 05/02/20 05/02/20 05/02/20 04:10 04:10 04:10 WBC 10.2 H RBC 3.45 L Hgb 10.0 L Hct 32.7 L MCV 94.8 MCH 29.0 MCHC 30.6 RDW 16.4 H Plt Count 166 MPV 9.8 Neut % (Auto) 74.4 Lymph % (Auto) 12.0 Graham % (Auto) 11.1 Eos % (Auto) 1.3 Baso % (Auto) 0.2 Neut # (Auto) 7.61 Lymph # (Auto) 1.2 Graham # (Auto) 1.1 H Eos # (Auto) 0.1 Baso # (Auto) 0.0 Nucleated RBC % (a uto) 0 Nucleated RBCs # 0.0 Sodium 143 Potassium 3.5 Chloride 106 Carbon Dioxide 28 Anion Gap 12.5 BUN 7 Creatinine 0.6 GFR Calculation 104.6 Glucose 83 Calculated Osmolal ity 291 Calcium 8.6 Total Bilirubin 0.9 AST 28 ALT 14 Alkaline Phosphata se 142 H Total Protein 5.9 L Albumin 2.6 L Globulin 3.3 Triglycerides 89 Cholesterol 45 LDL Cholesterol, C alc 12 L HDL Cholesterol 15 L LDL/HDL Ratio 0.80 Cholesterol/HDL Ra dotty 3.00 Vitals: Last Vital Signs Temp 97.9 F 05/02/20 08:00 Pulse 84 05/02/20 14:23 Resp 20 H 05/02/20 14:21 BP 158/109 05/02/20 13:00 Pulse Ox 95 05/02/20 14:21 Discharge Plan Discharge Patient Disposition: Xfer LTC Condition: Stable Prescriptions: New tramadol 50 mg Tablet 50 mg PO Q6H PRN (Reason: Moderate Pain) Qty: 15 RF: 0 ipratropium-albuterol 0.5 mg-3 mg(2.5 mg base)/3 mL Solution For Nebulization 3 ml inhalation Q6H.RESPIRATORY Qty: 15 RF: 0 magnesium oxide 400 mg (241.3 mg magnesium) Tablet 400 mg PO BID Qty: 30 RF: 0 Thera 400 mcg Tablet 1 tab PO DAILY Qty: 30 RF: 0 amoxicillin-pot clavulanate 875-125 mg Tablet 1 tab PO BID Qty: 10 RF: 0 levofloxacin 500 mg Tablet 500 mg PO DAILY@0600 Qty: 5 RF: 0 furosemide [Lasix] 20 mg tablet 20 mg PO DAILY PRN (Reason: edema) Qty: 10 RF: 0 budesonide 0.5 mg/2 mL Suspension For Nebulization 0.5 mg inhalation BID.RESPIRATORY Qty: 15 RF: 0 Continued tizanidine 4 mg tablet 4 mg PO BID MDD 2 PRN (Reason: muscle spasticity) Qty: 60 RF: 0 gabapentin 300 mg capsule 300 mg PO BID Qty: 60 RF: 0 ondansetron HCl [Zofran] 4 mg tablet 4 mg PO Q8H PRN (Reason: n/v) RF: 0 esomeprazole magnesium [Nexium] 40 mg capsule,delayed release(DR/EC) 40 mg PO QDAY RF: 0 baclofen 10 mg tablet 10 mg PO TID PRN (Reason: Spasms) RF: 0 citalopram [Celexa] 40 mg tablet 40 mg PO .morning Qty: 30 RF: 4 alprazolam [Xanax] 1 mg tablet 1 mg PO TID PRN (Reason: anxiety) Qty: 90 RF: 4 potassium chloride 20 mEq tablet extended release 20 meq PO BID RF: 0 trazodone 100 mg tablet 300 mg PO .bedtime PRN (Reason: Sleep) RF: 0 Changed hydroxyzine HCl 50 mg tablet 25 mg PO BID PRN (Reason: anxiety) Qty: 60 RF: 4 Discontinued valsartan 80 mg tablet 80 mg PO QDAY RF: 0 lovastatin 20 mg tablet 40 mg PO BEDTIME RF: 0 hydrochlorothiazide 12.5 mg tablet 12.5 mg PO DAILY RF: 0 atorvastatin 40 mg tablet 40 mg PO BEDTIME RF: 0 fenofibrate 150 mg Capsule 145 mg PO BEDTIME RF: 0 Coding Level of Care Code Acute Retail 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 Manager for g Fwd Diagnoses Bowel perforation K63.1 Physical deconditioning R53.81 Peritonitis (acute) generalized K65.0 Acute respiratory failure with hypoxia J96.01 Hypernatremia E87.0 COPD (chronic obstructive pulmonary disease) J44.9 COPD type: unspecified COPD Pneumonia J18.9 Pneumonia type: due to unspecified organism Laterality: bilateral Lung location: lower lobe of lung Leukocytosis, unspecified D72.823 Leukocytosis type: leukemoid reaction Hyponatremia E87.1 Hypotension I95.9 Acute anemia D64.9 Shock liver K72.00 Rhabdomyolysis M62.82 Liver enzyme elevation R74.8 Hypokalemia E87.6 Septic shock A41.9; R65.21 Generalized anxiety disorder F41.1 Major depressive disorder, recurrent severe without psychotic features F33.2
--- NOTE | 2020-05-02 14:47 | PM.TDS ---
Transfer Summary Providers Date of Admission: 04/14/20 00:30 Date of Discharge: 05/02/20 Attending Provider at Admission: Toño Villegas MD Attending Provider at Transfer: Navi Desir MD Consults: Surgery: Dr. Brown IV: Dr. Meza Pulmonology/electric motor repairman: Dr. Mcneal Anticipated Date of Transfer: Anticipated date of transfer: 05/02/20 Receiving Facility & Provider: Receiving Provider: [Dr. Segundo] Receiving facility: [[facility]] Diagnoses at Discharge Discharge Diagnosis (1) Bowel perforation: Status: Resolved (2) Physical deconditioning: Status: Acute (3) Peritonitis (acute) generalized: Status: Acute (4) Acute respiratory failure with hypoxia: Status: Acute (5) Hypernatremia: Status: Acute (6) COPD (chronic obstructive pulmonary disease): Status: Acute Qualifiers: COPD type: unspecified COPD Qualified Code(s): J44.9 - Chronic obstructive pulmonary disease, unspecified (7) Pneumonia: Status: Acute Qualifiers: Pneumonia type: due to unspecified organism Laterality: bilateral Lung location: lower lobe of lung Qualified Code(s): J18.9 - Pneumonia, unspecified organism (8) Leukocytosis, unspecified: Status: Acute Qualifiers: Leukocytosis type: leukemoid reaction Qualified Code(s): D72.823 - Leukemoid reaction (9) Hyponatremia: Status: Acute (10) Hypotension: Status: Acute (11) Acute anemia: Status: Acute (12) Shock liver: Status: Acute (13) Rhabdomyolysis: Status: Acute (14) Liver enzyme elevation: Status: Acute (15) Hypokalemia: Status: Acute (16) Septic shock: Status: Resolved (17) Generalized anxiety disorder: Status: Chronic (18) Major depressive disorder, recurrent severe without psychotic features: Status: Chronic Reason for Visit Reason for Visit: STOMACH PAIN Hospital Course Discharge Summary: Ms Irma Jones is a 54 year old female presents to the emergency department with worsening abdominal pain since last Sunday associated with nausea and vomiting she had a bowel movement today in the form of diarrhea nonbloody, patient denies any fevers or chills but she admits that she has been getting weaker, patient upon evaluation in the emergency department was found to have leukocytosis of 33,000+ and elevated creatinine more than 3 likely acute kidney injury and a CT scan of the abdomen and pelvis that showed evidence of bowel perforation with reactive enteritis, peritonitis and developing abscess formation in the pelvis. Patient was initially admitted under surgery.Then underwent Exploratory laparotomy Peritoneal lavage, Lysis of omental adhesions encasing different compartmental intra-abdominal abscesses. Had postop. Was complicated by her developing severe septic shock requiring 3 pressors, acute hypoxic respiratory failure requiring intubation, acute kidney failure which was treated by IV fluid resuscitation, septic shock. At one time she was on broad antibiotics and antifungal coverage. Her abdominal cultures were only consistent with staph epidermidis and Jocelyn. He has been covered. Vancomycin and Zosyn and caspofungin which were later de-escalated as per the culture from the results. Her blood cultures have remained negative. Patient has remained afebrile for last 1 week. Patient's abdominal wound were concerning for a possible wound dehiscence in the lower segment for wound VAC was placed. Later he was taken to the OR again on April for further abdominal washout. Culture results from that are still awaited. Patient during hospitalization was followed up by electric motor repairman and ID. At present patient is on Augmentin and Levaquin. Patient has finished course of antifungal with caspofungin which was later de-escalated to Diflucan. Patient has had long hospital course and her nutrition status has worsened. In between patient was also on TPN. At present patient is tolerating diet well. Because of severe deconditioning patient's physical therapy has been limited. Patient has been reluctant in using incentive spirometry but on encouragement she continues to do so. Because of complicated hospital course, significant deconditioning, wound care patient will will be discharged to long-term acute facility for further rehabilitation which he agreed to. Physical Exam Urinary Catheter Management^: Romano: Cath Placed During This Visit: yes, but has since been removed by the nurse Reason for Continuing Indwelling Catheter: Accurate Measurement of Urinary Output in Critically Ill Patients Urinary Catheter Date of Insertion: 04/19/20 Urinary Catheter Time of Insertion: 08:51 Date Urinary Catheter Removed: 04/19/20 Time Urinary Catheter Discontinued: 08:28 TS Data Data Completed and Pending: Completed Studies During Hospitalization Category Date Time Status CT abdomen pelvis w con* 69491 Urge nt Cat Scan 04/13/20 19:[address] abdomen pelvis wo con 99831 Rout ine Cat Scan 04/18/20 07:[address] chest abd pel wo con Stat Cat Scan 04/22/20 08:04 Completed CXRP [XR chest 1V portable 76508] R outine Exams 04/14/20 08:15 Completed CXRP [XR chest 1V portable 70864] R outine Exams 04/21/20 08:39 Completed CXRP [XR chest 1V portable 04176] S tat Exams 04/14/20 07:39 Completed XR KUB portable 7 4018 Stat Exams 04/20/20 06:04 Completed XR chest 1V les ble 18955 Routine Exams 04/15/20 06:02 Completed XR chest 1V les ble 74860 Routine Exams 04/17/20 07:11 Completed XR chest 1V les ble 94267 Routine Exams 04/26/20 12:35 Completed XR chest 1V les ble 54870 Stat Exams 04/14/20 04:47 Completed XR chest 1V les ble 31520 Stat Exams 04/20/20 03:10 Completed CV echo complete* 27670 Routine Ultrasound 04/15/20 09:01 Completed Pending at discharge Category Date Time Status ES surgery / GI i mages Routine Exams 04/20/20 08:48 Ordered Blood Culture AM LABS Lab 04/28/20 03:45 Results Body Fluid Cultur e & GS Routine Lab 04/30/20 12:21 Results Body Fluid Cultur e & GS Routine Lab 04/30/20 12:21 Results Body Fluid Cultur e & GS Stat Lab 04/20/20 10:05 Results Complete Blood Co unt w/Auto AM LABS Lab 05/03/20 04:00 Ordered Comprehensive Met abolic Panel AM LA BS Lab 05/03/20 04:00 Ordered Fungal Culture no t HR/SK/BL Routine Lab 04/20/20 08:51 Results Mycobacteria, Cul ture w/Fluor Johni ne Lab 04/20/20 08:51 Results Tissue Culture an d Gram Stain Johni ne Lab 04/30/20 12:21 Results Viral Culture Res piratory Routine Lab 04/20/20 08:51 Received Labs from last 24 hours 05/02/20 05/02/20 05/02/20 04:10 04:10 04:10 WBC 10.2 H RBC 3.45 L Hgb 10.0 L Hct 32.7 L MCV 94.8 MCH 29.0 MCHC 30.6 RDW 16.4 H Plt Count 166 MPV 9.8 Neut % (Auto) 74.4 Lymph % (Auto) 12.0 [place]eman % (Auto) 11.1 Eos % (Auto) 1.3 Baso % (Auto) 0.2 Neut # (Auto) 7.61 Lymph # (Auto) 1.2 [place]eman # (Auto) 1.1 H Eos # (Auto) 0.1 Baso # (Auto) 0.0 Nucleated RBC % (a uto) 0 Nucleated RBCs # 0.0 Sodium 143 Potassium 3.5 Chloride 106 Carbon Dioxide 28 Anion Gap 12.5 BUN 7 Creatinine 0.6 GFR Calculation 104.6 Glucose 83 Calculated Osmolal ity 291 Calcium 8.6 Total Bilirubin 0.9 AST 28 ALT 14 Alkaline Phosphata se 142 H Total Protein 5.9 L Albumin 2.6 L Globulin 3.3 Triglycerides 89 Cholesterol 45 LDL Cholesterol, C alc 12 L HDL Cholesterol 15 L LDL/HDL Ratio 0.80 Cholesterol/HDL Ra dotty 3.00 Vitals: Last Vital Signs Temp 97.9 F 05/02/20 08:00 Pulse 84 05/02/20 14:23 Resp 20 H 05/02/20 14:21 BP 158/109 05/02/20 13:00 Pulse Ox 95 05/02/20 14:21 TS Medications Medications Home Medications esomeprazole magnesium 40 mg capsule,delayed release 40 mg PO QDAY 09/17/19 [History Confirmed 04/14/20] hydrochlorothiazide 12.5 mg tablet 12.5 mg PO DAILY 09/17/19 [History Confirmed 04/14/20] lovastatin 20 mg tablet 40 mg PO BEDTIME 09/17/19 [History Confirmed 04/14/20] ondansetron HCl 4 mg tablet 4 mg PO Q8H PRN tab 09/17/19 [History Confirmed 04/14/20] valsartan 80 mg tablet 80 mg PO QDAY 09/17/19 [History Confirmed 04/13/20] baclofen 10 mg tablet 10 mg PO TID PRN 11/25/19 [History Confirmed 04/14/20] gabapentin 300 mg capsule 300 mg PO BID #60 cap 11/25/19 [Rx Confirmed 04/14/20] tizanidine 4 mg tablet 4 mg PO BID PRN #60 tab MDD 2 11/25/19 [Rx Confirmed 04/13/20] alprazolam 1 mg tablet 1 mg PO TID PRN #90 tab 01/05/20 [Rx Confirmed 04/14/20] citalopram 40 mg tablet 40 mg PO .morning #30 tab 01/05/20 [Rx Confirmed 04/14/20] hydroxyzine HCl 50 mg tablet 50 mg PO BID PRN #60 tab 01/05/20 [Rx Confirmed 04/14/20] atorvastatin 40 mg PO BEDTIME 04/14/20 [History Confirmed 04/14/20] fenofibrate 145 mg PO BEDTIME 04/14/20 [History Confirmed 04/14/20] potassium chloride 20 meq PO BID 04/14/20 [History Confirmed 04/14/20] trazodone 300 mg PO .bedtime PRN 04/14/20 [History Confirmed 04/14/20] Active Medications Acetaminophen (Tylenol Liquid) 650 mg PO Q4H PRN PRN Reason: MILD PAIN OR INCREASE TEMP Last Admin: 04/28/20 06:29 Dose: 650 mg Documented by: Albuterol/Ipratropium (Duoneb) 3 ml INHALATION Q6H.RESPIRATORY BRITTNEY Last Admin: 05/02/20 14:20 Dose: 3 ml Documented by: Amoxicillin/Clavulanate Potassium (Augmentin 875-125 Mg) 1 tab PO BID BRITTNEY; Protocol Last Admin: 05/02/20 10:08 Dose: 1 tab Documented by: Baclofen (Lioresal) 10 mg PO TID PRN PRN Reason: Spasms Last Admin: 04/30/20 15:10 Dose: 10 mg Documented by: Budesonide (Pulmicort) 0.5 mg INHALATION BID.RESPIRATORY BRITTNEY Last Admin: 05/02/20 08:30 Dose: 0.5 mg Documented by: Citalopram Hydrobromide (Celexa) 40 mg PO DAILY BRITTNEY Last Admin: 05/02/20 10:10 Dose: 40 mg Documented by: Enoxaparin Sodium (Lovenox) 40 mg SUBCUT Q24H BRITTNEY Last Admin: 05/01/20 17:17 Dose: 40 mg Documented by: Fenofibrate (Tricor) 145 mg PO BEDTIME BRITTNEY Last Admin: 05/01/20 21:12 Dose: 145 mg Documented by: Fluconazole (Diflucan Tab) 400 mg PO DAILY BRITTNEY Last Admin: 05/02/20 10:08 Dose: 400 mg Documented by: Folic Acid (Folic Acid) 1 mg PO BID COUNT INCLUDES THE [facility] Last Admin: 05/02/20 10:09 Dose: 1 mg Documented by: Gabapentin (Neurontin) 300 mg PO BID COUNT INCLUDES THE [facility] Last Admin: 05/02/20 10:09 Dose: 300 mg Documented by: Hydralazine HCl (Apresoline) 10 mg IVP Q4H PRN PRN Reason: Systolic blood pressure greater than 180, diastolic greater than 100 Last Admin: 04/23/20 23:47 Dose: 10 mg Documented by: Hydroxyzine Pamoate (Vistaril) 25 mg PO BID PRN PRN Reason: anxiety Last Admin: 05/02/20 02:55 Dose: 25 mg Documented by: Albumin Human (Albumin) 25 gm in 100 mls @ 60 mls/hr IV Q8H PRN PRN Reason: low bp Levofloxacin (Levaquin) 500 mg PO DAILY@0600 COUNT INCLUDES THE [facility]; Protocol Last Admin: 05/02/20 06:39 Dose: 500 mg Documented by: Magnesium Oxide (Magox) 400 mg PO BID COUNT INCLUDES THE [facility] Last Admin: 05/02/20 10:08 Dose: 400 mg Documented by: Multivitamins Therapeutic (Multivitamin Tab) 1 tab PO DAILY COUNT INCLUDES THE [facility] Last Admin: 05/02/20 10:09 Dose: 1 tab Documented by: Ondansetron HCl (Zofran) 4 mg IVP Q6H PRN PRN Reason: NAUSEA AND VOMITING Last Admin: 04/28/20 13:56 Dose: 4 mg Documented by: Tramadol HCl (Ultram) 50 mg PO Q6H PRN PRN Reason: MODERATE PAIN Last Admin: 05/02/20 10:21 Dose: 50 mg Documented by: Trazodone HCl (Desyrel) 300 mg PO BEDTIME PRN PRN Reason: Sleep Last Admin: 04/25/20 21:12 Dose: 300 mg Documented by: Discharge Plan Discharge Patient Disposition: er [facility] Condition: Stable Prescriptions: New ipratropium-albuterol 0.5 mg-3 mg(2.5 mg base)/3 mL Solution For Nebulization 3 ml inhalation Q6H.RESPIRATORY Qty: 15 RF: 0 magnesium oxide 400 mg (241.3 mg magnesium) Tablet 400 mg PO BID Qty: 30 RF: 0 Thera 400 mcg Tablet 1 tab PO DAILY Qty: 30 RF: 0 amoxicillin-pot clavulanate 875-125 mg Tablet 1 tab PO BID Qty: 10 RF: 0 levofloxacin 500 mg Tablet 500 mg PO DAILY@0600 Qty: 5 RF: 0 furosemide [Lasix] 20 mg tablet 20 mg PO DAILY PRN (Reason: edema) Qty: 10 RF: 0 budesonide 0.5 mg/2 mL Suspension For Nebulization 0.5 mg inhalation BID.RESPIRATORY Qty: 15 RF: 0 Continued tizanidine 4 mg tablet 4 mg PO BID MDD 2 PRN (Reason: muscle spasticity) Qty: 60 RF: 0 gabapentin 300 mg capsule 300 mg PO BID Qty: 60 RF: 0 ondansetron HCl [Zofran] 4 mg tablet 4 mg PO Q8H PRN (Reason: n/v) RF: 0 esomeprazole magnesium [Nexium] 40 mg capsule,delayed release(DR/EC) 40 mg PO QDAY RF: 0 baclofen 10 mg tablet 10 mg PO TID PRN (Reason: Spasms) RF: 0 citalopram [Celexa] 40 mg tablet 40 mg PO .morning Qty: 30 RF: 4 alprazolam [Xanax] 1 mg tablet 1 mg PO TID PRN (Reason: anxiety) Qty: 90 RF: 4 potassium chloride 20 mEq tablet extended release 20 meq PO BID RF: 0 trazodone 100 mg tablet 300 mg PO .bedtime PRN (Reason: Sleep) RF: 0 Changed hydroxyzine HCl 50 mg tablet 25 mg PO BID PRN (Reason: anxiety) Qty: 60 RF: 4 Discontinued valsartan 80 mg tablet 80 mg PO QDAY RF: 0 lovastatin 20 mg tablet 40 mg PO BEDTIME RF: 0 hydrochlorothiazide 12.5 mg tablet 12.5 mg PO DAILY RF: 0 atorvastatin 40 mg tablet 40 mg PO BEDTIME RF: 0 fenofibrate 150 mg Capsule 145 mg PO BEDTIME RF: 0 Transfer Attestations Time Spent in Transfer Care*: critical care time Critical Care Time (min): 60 Specific Discharge Activities: Specific discharge activities: educating patient, educating and/or supporting family/caregiver, discussing with pcp/other providers, discussing with pillowcase cutter/social workers/dc planners, documenting/other paperwork and evaluating patient/reviewing data Status at Transfer: Cognitive status at transfer: cognitively intact, Behavioral status at transfer: cooperative, Functional status at transfer: other assisted ambulation Overall status at transfer: patient is progressing back to baseline Quality Metrics Clinical Quality Measures: During this hospital stay, did patient experience: None Coding Level of Care Code Acute Hospitality Internship for Chg Fwd Diagnoses Bowel perforation K63.1 Physical deconditioning R53.81 Peritonitis (acute) generalized K65.0 Acute respiratory failure with hypoxia J96.01 Hypernatremia E87.0 COPD (chronic obstructive pulmonary disease) J44.9 COPD type: unspecified COPD Pneumonia J18.9 Pneumonia type: due to unspecified organism Laterality: bilateral Lung location: lower lobe of lung Leukocytosis, unspecified D72.823 Leukocytosis type: leukemoid reaction Hyponatremia E87.1 Hypotension I95.9 Acute anemia D64.9 Shock liver K72.00 Rhabdomyolysis M62.82 Liver enzyme elevation R74.8 Hypokalemia E87.6 Septic shock A41.9; R65.21 Generalized anxiety disorder F41.1 Major depressive disorder, recurrent severe without psychotic features F33.2
--- NOTE | 2020-05-02 14:49 | PM.PN ---
Subjective Subjective: Interval history: Patient went back to the OR on April 30, 2020. She underwent sharp debridement of the abdominal wall wound to the fascial layer and application of wound VAC. Specimen was sent for culture and susceptibility. Fluid from deep wound and cultures were also sent. Thus far these deep wound cultures have a negative Gram stain and no WBCs. No overt pus noticed in the OR. There was serosanguineous discharge from the wound. Patient's leukocytosis has improved significantly, now down to 10.0. Medications: Reviewed: Yes Vitals/I&O/Wt Last Vital Signs Temp 97.9 F 05/02/20 08:00 Pulse 84 05/02/20 14:23 Resp 20 H 05/02/20 14:21 BP 158/109 05/02/20 13:00 Pulse Ox 95 05/02/20 14:21 05/01/20 05/02/20 05/02/20 22:59 06:59 14:59 Intake Total 350 / 580 120 / 700 240 / 240 Output Total 150 / 750 700 / 700 Balance 350 / -20 -30 / -50 -460 / -460 Physical Exam Narrative: EXAM NARRATIVE: GEN: Awake, alert and oriented, appears more deconditioned when compared to last exam CVS: S1S2 N RS: CTA B/L Abd: Soft, nt/nd , bs+ MARK UP DESIGNER: no focal neuro deficits Urinary Catheter Management^: Romano: Cath Placed During This Visit: yes, but has since been removed by the nurse Reason for Continuing Indwelling Catheter: Accurate Measurement of Urinary Output in Critically Ill Patients Urinary Catheter Date of Insertion: 04/19/20 Urinary Catheter Time of Insertion: 08:51 Date Urinary Catheter Removed: 04/19/20 Time Urinary Catheter Discontinued: 08:28 Data : 05/02/20 04:10 05/02/20 04:10 Other Labs: blood cx 04/14: CoNs 08/30 blood cx 04/20: NGTD blood cx 04/28: NGTD OR cx from ex lap: none available 04/20: BAL cx: upper respiratory Josefa 04/20: MICHELLE drain culture : Jocelyn parapsilosis and staph epidermidis 04/22: MICHELLE drain cx: staph epidermidis 04/21: catheter tip culture from CVC : NGTD 04/22: urine cx : saccharomyces 04/27: Abdominal drain cx : no growth 04/30: deep abdominal wall body fluids for culture : many Wbc, no organisms on gram stain, no growth on cx 04/30: Comment abdominal wall wound tissue for culture : NO WHITE BLOOD CELLs, NO ORGANISMS SEEN Micro: Microbiology 04/30/20 12:21 Gram Stain - Final Abdomen Tissue Culture - Preliminary 04/30/20 12:21 Gram Stain - Final Other Source Body Fluid Culture - Preliminary 04/30/20 12:21 Gram Stain - Final Other Source Body Fluid Culture - Preliminary 04/27/20 15:00 Catheter Tip Culture - Final Other Source CT Abd/Pel: Radiologist's impression: CT Abd/Pel: Radiologist's impression: 04/13 upon admission: IMPRESSION: 1. Evidence of bowel perforation with reactive enteritis, peritonitis and developing abscess formation in the pelvis, as described above. Query underlying perforated sigmoid diverticulitis. 04/18: CT abdomen pelvis wo con [id number] IMPRESSION: Interval laparotomy with packed open anterior abdominal incision. Air-filled nondilated colon from the cecum through the splenic flexure presumably related to slight ileus. Enteric tube ends in the stomach. Slight thickening of the distal small bowel wall fairly nonspecific. No pneumoperitoneum. Small amount of free fluid in the deep pelvis as well as some fluid overlying the dome of the liver interposed between the liver and the diaphragm. Whether or not this is infected fluid is uncertain. Generalized third spacing of fluid. Please correlate for possible sepsis. Patchy residual contrast retention in both kidneys without the administration of new iodinated contrast. Highly suspect this patient has underlying contrast-induced nephropathy with possible subsequent renal failure. Pourer Bull Ladle consultation recommended. No demarcated fluid collection is a suggest a site of drainable abscess identified. Interval development of bibasilar infiltrates. Question atelectasis versus pneumonia. 04/22: IMPRESSION: 1. Diffuse hazy groundglass infiltrates throughout both lungs in a perihilar distribution suspicious for pneumonitis including viral pneumonia. Trace pleural fluid with compressive atelectasis in the lung bases. 2. Postoperative changes laparotomy with open anterior abdominal wall incision. 3. Diffuse body wall anasarca and mesenteric edema slightly improved from previous. 4. No evidence of new drainable fluid collection or abscess in the abdomen or pelvis. Stable surgical drains. 5. Again seen are findings of adynamic ileus with air-fluid levels in slightly distended loops of small and large bowel with persistent air in the colon. No evidence of high-grade obstruction. 6. Romano catheter in place. 7. Enteric tube in the stomach. CXR: Radiologist's impression: 04/14: left atelactasis 04/17: IMPRESSION: Supporting devices appear to be in satisfactory position. Worsening infiltrate in the left lung. Most prominent left retrocardiac lung base position. Minimal patchy infiltrate right lung base. 04/20: Bilateral hazy pulmonary opacities are nonspecific and may represent pulmonary edema. Pneumonia cannot be excluded. 04/26: IMPRESSION: No acute findings. Right side PICC line in good position A&P Assessment and plan (1) Acute respiratory failure with hypoxia: Status: Acute (2) COPD (chronic obstructive pulmonary disease): Status: Acute Qualifiers: COPD type: unspecified COPD Qualified Code(s): J44.9 - Chronic obstructive pulmonary disease, unspecified (3) Bilateral pulmonary infiltrates on chest x-ray: Status: Deleted (4) Leukocytosis, unspecified: Status: Acute Qualifiers: Leukocytosis type: leukemoid reaction Qualified Code(s): D72.823 - Leukemoid reaction (5) Shock liver: Status: Acute (6) Septic shock: Status: Resolved (7) Bowel perforation: Status: Resolved (8) Major depressive disorder, recurrent severe without psychotic features: Status: Chronic (9) Peritonitis (acute) generalized: Status: Acute Additional A&P Information Patient is a 54-year-old lady who presented on April 13 with chief complaint of abdominal pain nausea vomiting, found to be in septic shock with evidence of perforated diverticulitis with resultant peritonitis. Status post emergent exploratory laparotomy with peritoneal lavage, lysis of omental adhesions encasing different compartmental intra-abdominal abscesses, Intra-op findings with frozen pelvis with sigmoid colon stuck to the lateral pelvic wall, pockets of pus between small bowel loops and different compartments of the abdominal cavity was appreciated. She has been on extensive broad spectrum coverage abx therapy since admission. Unfortunately no intraoperative cultures are available from this original surgery. Hospital course has been notable for intermittent high-grade fevers, now resolved since April 22. Septic shock is also since resolved. She needed prolonged intubation for hypoxic respiratory failure, which is since resolved. She remains hemodynamically stable and currently is clinically improving. Current active issues include wound dehiscence for which she now has a wound vac and persisting leukocytosis, however the later is also now nearly resolved with WBC coun down to 10. # Persistent leukocytosis This is now significantly improved to normal at 10.2 today. Septic shock is resolved. Fevers are also resolved. Patient has had an extended course of abx since admission, which inculded taken cefepime/vanc---> changed to impenem/vanc/doxycycline/levaquin and casopfungin during course of admission for persisting sepsis. She was successfull extubated around 04/25 with resoluion of symptoms. Per my recommendations, abx were changed eventually to augmentin and levofloxacin on 05/01. Her chart notes allegy to penicillin, however she states that she has tolerated amoxicillin well in the past. Augmentin and Levofloxacin are recommended o continue until 05/06 (~7 days from last debridement). Caspofungin had been previously started when patient was septic and recovery of Jocelyn parapsilosis on one of the drain cx. this was changed to po fluconazole and may be discontinued now as most recent cultures have not shown any evidence of fungal infection and MICHELLE drain/balloon cx likely to represent colonization. Blood cx have remained negative during coirse of admission. CoNs from 08/30 on 04/14 likely contamination. # Wound dehiscence without overt signs of wound infection or cellulitis at this present time. She returned to the OR on April 30 for wound debridement at which time deep cultures from the wound were negative gram stain and culture. Wound care to continue per surgery. # Hypoxic respiratory failure, now resolved, extubated over the weekend of 04/25 CT images of the chest were personally reviewed, findings appear to be most consistent with bilateral infiltrates more consistent with pulmonary edema rather than any gross consolidation or pneumonia. Do not believe this to be the source of prolonged leukocytosis. Overall patient is clinically improving, though deconditioned from her hospital stay Attestations Medical Necessity Statement*: per admitting team Time Spent in Patient Care: 16 - 35 minutes Procedures Arterial Line Size (Gauge): 20 Coding Level of Care Code Acute Supply Chain Systems Manager for [facility] Fwd Diagnoses Acute respiratory failure with hypoxia J96.01 COPD (chronic obstructive pulmonary disease) J44.9 COPD type: unspecified COPD Bilateral pulmonary infiltrates on chest x-ray R91.8 Leukocytosis, unspecified D72.823 Leukocytosis type: leukemoid reaction Shock liver K72.00 Septic shock A41.9; R65.21 Bowel perforation K63.1 Major depressive disorder, recurrent severe without psychotic features F33.2 Peritonitis (acute) generalized K65.0
--- NOTE | 2020-05-02 16:43 | PC.NURSE ---
Pt being transferred to [facility] in [place], [place], room 121. Report given at 15:50 to Natalie Serrato RN. All questions answered. Transfer paperwork completed, and a copy was given to EMS along with printed medical record. PICC line discontinued per Dr. Desir. Oxygen in place per nasal cannula at 2L/min. Wound vac dressing in place upon transfer (dry and intact); tubing clamped x2. Wound vac canister disconnected from Wound Vac machine, and sent with pt (canister was changed this morning). Pt's daughter came briefly to visit with pt, and left pt's wallet per pt's request. All personal belongings sent with pt (phone, phone senior automation engineer (cord and plug), glasses, magazines, snacks, abdominal binder x2, water cup). Pt alert and oriented, and agreeable to plan of care. Updated pt's sister Annabel ([phone]) of transfer. All questions answered. EMS left the ICU department with pt at 16:35.
--- NOTE | 2020-05-02 16:48 | PC.OT ---
OT tx attempted. Nursing requests OT to hold tx as pt is being prepped for transfer to LTAC facility today.
== END 2020-05-02 16:00 | DRG 853 ==
LOC: ER 20:02 → OR 21:18 → ICU 04-14 00:48
PROVIDERS: Emergency Medicine; Internal Medicine; Internal Medicine Nephrology; Internal Medicine Pulmonary Disease; Admitting Provider Surgery; Visit Provider Student in an Organized Health Care Education/Training Program
PROC: (CPT 49320; principal; 2020-04-13 22:30)
PROC: (CPT 49000; 2020-04-13 22:30)
PROC: 0BJ08ZZ Inspection of Tracheobronchial Tree, Via Natural or Artificial Opening Endoscopic (ICD-10-PCS; CPT 31622; principal; 2020-04-20 07:50)
PROC: 0JB80ZZ Excision of Abdomen Subcutaneous Tissue and Fascia, Open Approach (ICD-10-PCS; principal; 2020-04-30 11:30)
DX: A41.50 Gram-negative sepsis, unspecified (principal); K63.1 Perforation of intestine (nontraumatic); J96.01 Acute respiratory failure with hypoxia; J18.9 Pneumonia, unspecified organism; R65.21 Severe sepsis with septic shock; K72.00 Acute and subacute hepatic failure without coma; N17.0 Acute kidney failure with tubular necrosis; K65.0 Generalized (acute) peritonitis; J44.0 Chronic obstructive pulmonary disease with (acute) lower respiratory infection; E87.1 Hypo-osmolality and hyponatremia; F33.2 Major depressive disorder, recurrent severe without psychotic features; M62.82 Rhabdomyolysis; E87.2 Acidosis; T81.30XA Disruption of wound, unspecified, initial encounter; F41.1 Generalized anxiety disorder; E87.6 Hypokalemia; I95.9 Hypotension, unspecified; D64.9 Anemia, unspecified; F17.210 Nicotine dependence, cigarettes, uncomplicated; M51.17 Intervertebral disc disorders with radiculopathy, lumbosacral region; I10 Essential (primary) hypertension; N94.89 Other specified conditions associated with female genital organs and menstrual cycle; K52.89 Other specified noninfective gastroenteritis and colitis; E86.0 Dehydration; E83.51 Hypocalcemia; E83.42 Hypomagnesemia; Y84.8 Other medical procedures as the cause of abnormal reaction of the patient, or of later complication, without mention of misadventure at the time of the procedure; Y92.230 Patient room in hospital as the place of occurrence of the external cause; Z20.828 Contact with and (suspected) exposure to other viral communicable diseases
CPT/HCPCS: 12345; 36415; 36416; 36430; 36569; 36592; 36600; 51702; 71045; 71250; 74018; 74176; 74177; 80048; 80051; 80053; 80061; 80202; 80500; 81001; 81206; 82550; 82570; 82607; 82728; 82746; 82803; 82805; 82810; 82962; 83540; 83550; 83605; 83690; 83735; 83986; 84100; 84133; 84145; 84300; 85007; 85025; 85045; 85362; 85378; 85384; 85610; 85651; 85730; 86022; 86140; 86850; 86900; 86920; 87015; 87040; 87070; 87075; 87077; 87086; 87102; 87106; 87116; 87176; 87184; 87186; 87205; 87206; 87278; 87426; 87493; 87635; 87801; 87804; 89050; 93005; 93306; 94002; 94003; 94640; 94660; 94799; 96372; 96374; 96375; 97110; 97116; 97161; 97166; 97530; 97535; 99282; A4570; C1751; C9113; C9290; J0131; J0171; J0330; J0360; J0610; J0637; J0692; J0743; J0744; J1100; J1170; J1644; J1650; J1756; J1940; J1956; J2001; J2250; J2270; J2405; J2704; J2765; J3010; J3370; J3465; J3475; J3480; J3490; J7030; J7040; J7050; J7626; P9016; P9047; Q3014; Q9967; S0030

== ENCOUNTER 2020-06-18 09:28 | Outpatient (CLI) | payer MEDICARE, MEDICAID, SELFPAY | END 2020-06-18 09:29 | disposition home or self-care (01) | LOC: WOUND 09:28 | PROVIDERS: Visit Provider Surgery | DX: T81.89XA Other complications of procedures, not elsewhere classified, initial encounter (principal) | CPT/HCPCS: 11043; G0463 ==

== ENCOUNTER 2020-06-25 10:09 | Outpatient (CLI) | payer MEDICARE, MEDICAID, SELFPAY | END 2020-06-25 10:10 | disposition home or self-care (01) | LOC: WOUND 10:10 | PROVIDERS: Visit Provider Surgery | DX: L98.492 Non-pressure chronic ulcer of skin of other sites with fat layer exposed (principal) | CPT/HCPCS: 11043; 87880 ==

== ENCOUNTER 2020-07-02 10:30 | Outpatient (CLI) | payer MEDICARE, MEDICAID, SELFPAY | END 2020-07-02 10:31 | disposition home or self-care (01) | LOC: WOUND 10:30 | PROVIDERS: Visit Provider Nurse Practitioner Family | DX: L98.492 Non-pressure chronic ulcer of skin of other sites with fat layer exposed (principal) | CPT/HCPCS: 11042 ==

== ENCOUNTER → 2020-07-05 08:26 | Outpatient (BNVA) | payer MEDICARE, MEDICAID, SELFPAY | PROVIDERS: Visit Provider Nurse Practitioner Psychiatric/Mental Health | DX: F33.2 Major depressive disorder, recurrent severe without psychotic features (principal); F41.1 Generalized anxiety disorder; F17.210 Nicotine dependence, cigarettes, uncomplicated | CPT/HCPCS: 99213 ==

== ENCOUNTER 2020-07-09 09:39 | Outpatient (CLI) | payer MEDICARE, MEDICAID, SELFPAY | END 2020-07-09 09:40 | disposition home or self-care (01) | LOC: WOUND 09:39 | PROVIDERS: Visit Provider Surgery | DX: L98.492 Non-pressure chronic ulcer of skin of other sites with fat layer exposed (principal) | CPT/HCPCS: 11042 ==

== ENCOUNTER 2020-07-13 15:51 | Outpatient (CLI) | payer MEDICARE, MEDICAID, SELFPAY | END 2020-07-13 15:52 | disposition home or self-care (01) | LOC: WOUND 15:52 | PROVIDERS: Visit Provider Nurse Practitioner Family | DX: L98.492 Non-pressure chronic ulcer of skin of other sites with fat layer exposed (principal) | CPT/HCPCS: 87070; 87077; 87186; G0463 ==

== ENCOUNTER 2020-07-16 10:25 | Outpatient (CLI) | payer MEDICARE, MEDICAID, SELFPAY | END 2020-07-16 10:26 | disposition home or self-care (01) | LOC: WOUND 10:26 | PROVIDERS: Visit Provider Surgery | DX: L98.493 Non-pressure chronic ulcer of skin of other sites with necrosis of muscle (principal); I96 Gangrene, not elsewhere classified; F17.210 Nicotine dependence, cigarettes, uncomplicated | CPT/HCPCS: 11042; 97605 ==

== ENCOUNTER 2020-07-20 11:09 | Outpatient (CLI) | payer MEDICARE, MEDICAID, SELFPAY | END 2020-07-20 11:10 | disposition home or self-care (01) | LOC: WOUND 11:10 | PROVIDERS: Visit Provider Nurse Practitioner Family | DX: L98.492 Non-pressure chronic ulcer of skin of other sites with fat layer exposed (principal) | CPT/HCPCS: 97605 ==

== ENCOUNTER 2020-07-30 10:07 | Outpatient (CLI) | payer MEDICARE, MEDICAID, SELFPAY | END 2020-07-30 10:08 | disposition home or self-care (01) | LOC: WOUND 10:08 | PROVIDERS: Visit Provider Surgery | DX: L98.492 Non-pressure chronic ulcer of skin of other sites with fat layer exposed (principal) | CPT/HCPCS: 11043; 97605 ==

== ENCOUNTER 2020-08-06 10:22 | Outpatient (CLI) | payer MEDICARE, MEDICAID, SELFPAY | END 2020-08-06 10:23 | disposition home or self-care (01) | LOC: WOUND 10:23 | PROVIDERS: Visit Provider Surgery | DX: L98.492 Non-pressure chronic ulcer of skin of other sites with fat layer exposed (principal) | CPT/HCPCS: 11042; 97605 ==

== ENCOUNTER 2020-08-13 10:26 | Outpatient (CLI) | payer MEDICARE, MEDICAID, SELFPAY | END 2020-08-13 10:27 | disposition home or self-care (01) | LOC: WOUND 10:27 | PROVIDERS: Visit Provider Surgery | DX: L98.492 Non-pressure chronic ulcer of skin of other sites with fat layer exposed (principal) | CPT/HCPCS: 11042; 97605 ==

== ENCOUNTER 2020-08-26 10:44 | Outpatient (CLI) | payer MEDICARE, MEDICAID, SELFPAY | END 2020-08-26 10:45 | disposition home or self-care (01) | LOC: WOUND 10:45 | PROVIDERS: Visit Provider Nurse Practitioner Family | DX: L98.492 Non-pressure chronic ulcer of skin of other sites with fat layer exposed (principal) | CPT/HCPCS: 11042 ==

== ENCOUNTER 2020-09-03 10:39 | Outpatient (CLI) | payer MEDICARE, MEDICAID, SELFPAY | END 2020-09-03 10:40 | disposition home or self-care (01) | LOC: WOUND 10:41 | PROVIDERS: Visit Provider Surgery | DX: L98.492 Non-pressure chronic ulcer of skin of other sites with fat layer exposed (principal) | CPT/HCPCS: 11042; 97597 ==

== ENCOUNTER 2020-09-10 09:10 | Outpatient (CLI) | payer MEDICARE, MEDICAID, SELFPAY | END 2020-09-10 09:11 | disposition home or self-care (01) | LOC: WOUND 09:15 | PROVIDERS: Visit Provider Surgery | DX: L98.492 Non-pressure chronic ulcer of skin of other sites with fat layer exposed (principal) | CPT/HCPCS: 96365 ==

== ENCOUNTER 2020-09-17 08:45 | Outpatient (CLI) | payer MEDICARE, MEDICAID, SELFPAY | END 2020-09-17 08:46 | disposition home or self-care (01) | LOC: WOUND 08:46 | PROVIDERS: Visit Provider Surgery | DX: L98.492 Non-pressure chronic ulcer of skin of other sites with fat layer exposed (principal); T81.31XS Disruption of external operation (surgical) wound, not elsewhere classified, sequela; Y83.8 Other surgical procedures as the cause of abnormal reaction of the patient, or of later complication, without mention of misadventure at the time of the procedure | CPT/HCPCS: 11042 ==

== ENCOUNTER 2020-09-24 09:40 | Outpatient (CLI) | payer MEDICARE, MEDICAID, SELFPAY | END 2020-09-24 09:41 | disposition home or self-care (01) | LOC: WOUND 09:41 | PROVIDERS: Visit Provider Surgery | DX: T81.89XA Other complications of procedures, not elsewhere classified, initial encounter (principal); Y83.8 Other surgical procedures as the cause of abnormal reaction of the patient, or of later complication, without mention of misadventure at the time of the procedure | CPT/HCPCS: 11042 ==

== ENCOUNTER → 2020-09-30 10:40 | Outpatient (BNVA) | payer MEDICARE, MEDICAID, SELFPAY | PROVIDERS: Visit Provider Nurse Practitioner Psychiatric/Mental Health | DX: F33.2 Major depressive disorder, recurrent severe without psychotic features (principal); F41.1 Generalized anxiety disorder; F17.210 Nicotine dependence, cigarettes, uncomplicated | CPT/HCPCS: 99214 ==

== ENCOUNTER 2020-10-01 09:27 | Outpatient (CLI) | payer MEDICARE, MEDICAID, SELFPAY | END 2020-10-01 09:28 | disposition home or self-care (01) | LOC: WOUND 09:28 | PROVIDERS: Visit Provider Surgery | DX: T81.89XA Other complications of procedures, not elsewhere classified, initial encounter (principal); Y83.8 Other surgical procedures as the cause of abnormal reaction of the patient, or of later complication, without mention of misadventure at the time of the procedure | CPT/HCPCS: 11042 ==

== ENCOUNTER 2020-10-15 08:53 | Outpatient (CLI) | payer MEDICARE, MEDICAID, SELFPAY | END 2020-10-15 08:54 | disposition home or self-care (01) | LOC: WOUND 08:54 | PROVIDERS: Visit Provider Surgery | DX: T81.89XA Other complications of procedures, not elsewhere classified, initial encounter (principal); Y83.8 Other surgical procedures as the cause of abnormal reaction of the patient, or of later complication, without mention of misadventure at the time of the procedure | CPT/HCPCS: 11042 ==

== ENCOUNTER 2020-10-22 08:49 | Outpatient (CLI) | payer MEDICARE, MEDICAID, SELFPAY | END 2020-10-22 08:50 | disposition home or self-care (01) | LOC: WOUND 08:50 | PROVIDERS: Visit Provider Surgery | DX: T81.89XA Other complications of procedures, not elsewhere classified, initial encounter (principal) | CPT/HCPCS: 10060; 11042; 87070; 87075; 87077; 87186; 87205 ==

== ENCOUNTER 2020-10-26 13:02 | Outpatient (CLI) | payer MEDICARE, MEDICAID, SELFPAY | END 2020-10-26 13:03 | disposition home or self-care (01) | LOC: WOUND 13:03 | PROVIDERS: Visit Provider Thoracic Surgery (Cardiothoracic Vascular Surgery) | DX: T81.31XS Disruption of external operation (surgical) wound, not elsewhere classified, sequela (principal); L98.492 Non-pressure chronic ulcer of skin of other sites with fat layer exposed | CPT/HCPCS: G0463 ==

== ENCOUNTER 2020-10-29 08:30 | Outpatient (CLI) | payer MEDICARE, MEDICAID, SELFPAY | END 2020-10-29 08:31 | disposition home or self-care (01) | LOC: WOUND 08:31 | PROVIDERS: Visit Provider Surgery | DX: T81.89XA Other complications of procedures, not elsewhere classified, initial encounter (principal); L98.492 Non-pressure chronic ulcer of skin of other sites with fat layer exposed | CPT/HCPCS: 11042 ==

== ENCOUNTER 2020-11-05 08:41 | Outpatient (CLI) | payer MEDICARE, MEDICAID, SELFPAY | END 2020-11-05 08:42 | disposition home or self-care (01) | LOC: WOUND 08:42 | PROVIDERS: Visit Provider Nurse Practitioner Family | DX: L98.492 Non-pressure chronic ulcer of skin of other sites with fat layer exposed (principal) | CPT/HCPCS: 11042 ==

== ENCOUNTER 2020-11-08 07:12 | Outpatient (CLI) | payer MEDICARE, MEDICAID, SELFPAY ==
--- NOTE | 2020-11-08 07:27 | CT_ITS ---
WS: [id number] CT ABDOMEN PELVIS TECHNIQUE: Contrast-enhanced CT of the abdomen and pelvis with coronal and sagittal reformatted image s. CLINICAL INFORMATION: NONPRESSURE CHRONIC ULCER COMPARISON: April 22, 2020 DLP: 1561.[address] scans at [facility] use at least one of these dose optimization techniques: automat ed exposure control; mA and/or kV adjustment per patient size (includes targeted exams where dose is matched to clinical indication); or iterative reconstruction. FINDINGS: Hepatomegaly. Cirrhotic contour to the liver. Normal portal vein and splenic vein. Cholecystectomy cl ips. Normal spleen. Normal GE junction. Lung bases are well aerated. Adrenal glands are normal. Kiesha l renal parenchymal enhancement. No hydronephrosis. Moderate calcified atheromatous disease abdominal aorta. Tapered stenosis distal abdominal aorta with moderate to severe stenosis left common iliac ar farhad origin. Prior postoperative changes laparotomy with abdominal wall incision. Soft tissue thickening along the abdominal wall incision with a small fluid collection measuring 1.6 x 0.8 cm likely postoperative se colin. Mesenteric edema has improved from previous. Induration involving the ventral abdominal mesente ry. Small bowel loops closely adhered to the ventral abdominal wall may be due to adhesions. This abu ts the area of prior incision. No evidence of bowel obstruction. Sigmoid diverticulosis. No evidence of acute diverticulitis. Scattered stool in the colon. Normal porter endix. Normal lumbar spine. Mild lumbar curve. Prior postoperative hysterectomy and oophorectomy. No visuali zed decubitus ulcers. CT/CT abdomen pelvis w con* [id number] IMPRESSION: 1. No visualized decubitus ulcers 2. 3. Prior postoperative changes abdominal laparotomy 4. with Anterior abdominal wall incision. Small fluid collection along the inc ision measuring 1.6 x 0.8 cm likely postoperative seroma. 5. Mesenteric edema has improved with persistent induration in the ventral abd ominal fat. Small bowel loops closely adhered to the abdominal wall suspicious for adhesions 6. Cirrhotic liver. 7. Prior cholecystectomy. 8. Prior hysterectomy and oophorectomy. 9. Densely calcified distal abdominal aorta with moderate to severe stenosis l eft common iliac artery origin.
[2020-11-08] MEDS: iohexol 300 mg/mL 100 mL Btl IV (09:06)
[2020-11-08] MEDS: iohexol 300 mg/mL 50 mL Btl IV (09:09)
[2020-11-08 09:31] LABS: Blood Urea Nitrogen 14 mg/dL (6-20); Glomerular Filtration Rate 87.2 mL/min (90-130)
== END 2020-11-08 07:13 | disposition home or self-care (01) ==
LOC: RAD 07:17
PROVIDERS: PCP Nurse Practitioner Family; Visit Provider Thoracic Surgery (Cardiothoracic Vascular Surgery)
DX: R10.9 Unspecified abdominal pain (principal); L98.492 Non-pressure chronic ulcer of skin of other sites with fat layer exposed; T81.31XA Disruption of external operation (surgical) wound, not elsewhere classified, initial encounter; I70.0 Atherosclerosis of aorta; Z90.710 Acquired absence of both cervix and uterus; Z90.722 Acquired absence of ovaries, bilateral; Z90.49 Acquired absence of other specified parts of digestive tract; K74.60 Unspecified cirrhosis of liver; R60.0 Localized edema
CPT/HCPCS: 74177; 82565; 84520

== ENCOUNTER 2020-11-12 09:12 | Outpatient (CLI) | payer MEDICARE, MEDICAID, SELFPAY | END 2020-11-12 09:13 | disposition home or self-care (01) | LOC: WOUND 09:14 | PROVIDERS: PCP Nurse Practitioner Family; Visit Provider Nurse Practitioner Family | DX: Z09 Encounter for follow-up examination after completed treatment for conditions other than malignant neoplasm (principal) | CPT/HCPCS: 99212 ==

== ENCOUNTER 2020-11-23 10:22 | Outpatient (CLI) | payer MEDICARE, MEDICAID, SELFPAY ==
--- NOTE | 2020-11-23 10:30 | MM_ITS ---
WS: [id number] BILATERAL DIGITAL SCREENING MAMMOGRAPHY WITH CAD CLINICAL INFORMATION: SCREENING HISTORY: Screening mammogram. No current complaints. COMPARISON: None. TECHNIQUE: Bilateral CC and MLO views. FINDINGS: Scattered fibroglandular densities bilaterally. No suspicious focal mass, asymmetry, calcifications, or architectural distortion. No evidence of malignancy. Punctate and lucent centered calcifications. MM/[place] [id number] IMPRESSION: BI-RADS: 2-Benign FOLLOW UP: 1 Year Follow-up Recommend return to annual screening mammography.
== END 2020-11-23 10:23 | disposition home or self-care (01) ==
LOC: RADSHAW 10:25
PROVIDERS: PCP Family Medicine; Visit Provider Family Medicine
DX: Z12.31 Encounter for screening mammogram for malignant neoplasm of breast (principal)
CPT/HCPCS: 77067

== ENCOUNTER 2020-12-13 08:31 | Inpatient (IN) | payer MEDICARE, MEDICAID, SELFPAY ==
[2020-12-13] VITALS (31 sets, daily range): BP systolic 71–106; BP diastolic 31–61; PULSE 77–104; RESP 16–38; TEMP 36.5–37.8; O2SAT 88–95; BMI 33.2
--- NOTE | 2020-12-13 08:54 | ED_ITS ---
Documented by User: JOSHUA Hernandez 12/14/20 07:09 HPI - Abdominal Pain General: Chief Complaint: Abdominal Pain Stated Complaint: AB PAIN, POST SURGERY Time Seen by Provider: 12/13/20 08:52 History of Present Illness: HPI narrative: Patient is a 55-year-old female comes to the ED with abdominal pain. Patient has a past medical history of acid reflux, anemia and COPD. Patient says that back in March 2020 she had a perforated bowel with an abscess and was hospitalized for almost 2 months. She also was followed by wound care as well. She was recently cleared by wound care and was doing great. She says last night she started developing sharp abdominal pain near surgery site along with a fever. She also feels like there is a small mass near her surgical site that was not there previously. Denies any visible drainage or open wound on abdomen. Patient says the abdominal pain is constant, sharp and she rates it an 8 out of 10. Patient says she took some Motrin last night to treat her fever. She is concerned she might be developing another abdominal abscess. Denies any current bladder or bowel symptoms Associated Symptoms: Reports fever(s); Denies chills, constipation, diarrhea, dysuria, hematochezia, hematuria, nausea and vomiting Review of Systems Const: Reports: fever(s); Denies: chills or fatigue Eyes: Denies: change in vision or eye discomfort ENMT: Denies: throat pain, odynophagia, nasal discharge or nasal congestion Card: Denies: chest pain, palpitations, edema, swelling of feet/ankles, dyspnea on exertion or orthopnea Resp: Denies: dyspnea, productive cough or non-productive cough GI: Reports: abdominal pain (periumbilical and mid lower abdomen); Denies: nausea, vomiting, diarrhea, constipation or hematochezia : Denies: flank pain, dysuria or hematuria Musc: Denies: neck pain, back pain or extremity swelling Skin/Breast: Denies: rash or new lesions Neuro: Denies: headache(s), numbness in extremities or weakness in extremities PFSH ED PFSH: Medical History Acute kidney injury Bowel perforation COPD (chronic obstructive pulmonary disease) Generalized anxiety disorder 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, recurrent severe without psychotic features Peritonitis (acute) generalized Pneumonia Rhabdomyolysis Septic shock Shock liver Surgical History H/O drainage of abscess (~12/13/20) Intra-abdominal H/O exploratory laparotomy drainage of intra abdominal abscess H/O of hysterectomy with bilateral oophorectomy Family History Mother CHF (congestive heart failure) Social History Smoking and tobacco status: current every day smoker cigarettes Packs smoked per day: 1 Alcohol intake: current Alcohol intake frequency: few times a month Household members: family Marital status: Current occupational status: unemployed History of recent travel: No Physical Exam Const: COMMON NORMALS: no acute distress, patient oriented x3 and alert GENERAL APPEARANCE: cooperative and comfortable HENMT: COMMON NORMALS: normocephalic HEAD & SCALP: normocephalic MOUTH: Normal oral and palatal mucosa present THROAT: posterior oropharynx normal and uvula midline Neck/C-Spine: COMMON NORMALS: supple GENERAL: Yes normal visual inspection Resp: COMMON NORMALS: normal respiratory effort, No retractions, No use of accessory muscles and clear to auscultation bilaterally AUSCULTATION: clear to auscultation bilaterally Cardio: COMMON NORMALS: regular rate, regular rhythm, S1 normal heart sound present, S2 normal heart sound present, No gallops present (Cardio), No clicks present (Cardio), No murmurs present (Cardio) and Peripheral pulses 2+ throughout RATE: regular rate RHYTHM: regular rhythm HEART SOUNDS: S1 normal heart sound present and S2 normal heart sound present PERIPHERAL PULSES: Peripheral pulses 2+ throughout GI: COMMON NORMALS: Normal to inspection, nondistended, normoactive bowel sounds present, Soft to palpation and no masses INSPECTION: Yes central obesity and Yes scar (Central abdomen-surgical incision site?completely healed and scar tissue) PALPATION: Yes Soft to palpation and Yes Tenderness to palpation present (GI) Details: other (Tenderness over surgical site on midline of abdomen. Lower and periumbilical) OTHER: Patient has tender and firm mass around surgical site scar tissue. Size approximately 2 cm. : COMMON NORMALS: Yes no CVA tenderness BLADDER/KIDNEY EXAM: Yes no CVA tenderness Back/Pelvis: COMMON NORMALS: no CVA tenderness Extremity: COMMON NORMALS: normal to inspection Neuro: COMMON NORMALS: patient oriented x3 SENSORIUM/ORIENTATION: Yes alert GAIT: Yes Normal gait present Skin: GENERAL SKIN EXAM: dry skin Course Vital Signs: Vital signs: Vital Signs Temperature 98.6 F 12/15/20 17:21 Pulse Rate 81 12/15/20 17:21 Respiratory Rate 18 12/15/20 17:21 Blood Pressure 157/106 12/15/20 17:21 Pulse Oximetry 96 12/15/20 17:21 MDM - Abdominal Pain MDM Narrative: Medical decision making narrative: Patient is a 55-year-old fe male comes to the ED with abdominal pain. Patient has past medical history of perforated bowel with abscess and was hospitalized for almost 2 months. She was just cleared from wound care. Patient says last night she started developing sharp abdominal pain at surgical site. Patient's vitals are stable and on her exam she is moderately tender over surgical site and a firm tender masses palpated at surgical site as well. White blood cell count [address] of abdomen showed a fluid collection of [id number] and likely a seroma. I talked with Dr. Kline about patient case and he will be taking over care of patient in getting her admitted. Lab Data: Attestation: I reviewed the patient's lab results. Labs: Lab Results 12/13/20 12/13/20 12/13/20 Range/Units 09:09 09:10 09:10 WBC 22.0 H (4.0-10.0) 10^3/ uL RBC 4.87 (4.1-5.3) 10^6/u L Hgb 14.4 (11.5-15.3) g/dL Hct 42.4 (37.0-47.0) % MCV 87.1 (81-99) fL MCH 29.6 (28.0-34.0) pg MCHC 34.0 (30.0-36.0) g/dL RDW 13.8 (12.1-15.1) % Plt Count 279 (130-400) 10^3/c mm MPV 9.0 (7.4-10.4) fL Neut % (Auto) 85.6 % Lymph % (Auto) 7.1 % [place] % (Auto) 5.3 % Eos % (Auto) 0.5 % Baso % (Auto) 0.4 % Neut # (Auto) 18.84 H (1.8-7.7) 10^3/u L Lymph # (Auto) 1.6 (0.8-4.8) 10^3/u L [place] # (Auto) 1.2 H (0.2-0.9) 10^3/u L Eos # (Auto) 0.1 (0.0-0.8) 10^3/u L Baso # (Auto) 0.1 (0.0-0.1) 10^3/u L Nucleated RBC % (a uto) 0 % Nucleated RBCs # 0.0 /100WBC Sodium Cancelled Potassium Cancelled Chloride Cancelled Carbon Dioxide Cancelled Anion Gap Cancelled BUN Cancelled Creatinine Cancelled GFR Calculation Cancelled Glucose Cancelled Calculated Osmolal ity Cancelled Calcium Cancelled Total Bilirubin Cancelled AST Cancelled ALT Cancelled Alkaline Phosphata se Cancelled Total Protein Cancelled Albumin Cancelled Globulin Cancelled Lipase Cancelled Urine Color Yellow (Yellow) Urine Appearance Clear (CLEAR) Urine pH 6 (5-7) Ur Specific Gravit y 1.015 (1.005-1.030) Urine Protein Neg (Negative) Urine Glucose (UA) Norm (Normal) Urine Ketones Negative (Negative) Urine Blood Neg (Negative) Urine Nitrate Negative (Negative) Urine Bilirubin Neg (Negative) Urine Urobilinogen 4 H (Negative) mg/dL Ur Leukocyte Shantelle ase Negative (Negative) Urine RBC None (0-2) /hpf Urine WBC Rare (0-5) /hpf Ur Squamous Epith Cells 10-15 H (0-5) /hpf Amorphous Sediment Not Reportable Urine Bacteria Trace (NONE) /hpf Urine Yeast Trace /hpf 12/13/20 Range/Units 09:40 WBC (4.0-10.0) 10^3/ uL RBC (4.1-5.3) 10^6/u L Hgb (11.5-15.3) g/dL Hct (37.0-47.0) % MCV (81-99) fL MCH (28.0-34.0) pg MCHC (30.0-36.0) g/dL RDW (12.1-15.1) % Plt Count (130-400) 10^3/c mm MPV (7.4-10.4) fL Neut % (Auto) % Lymph % (Auto) % [place] % (Auto) % Eos % (Auto) % Baso % (Auto) % Neut # (Auto) (1.8-7.7) 10^3/u L Lymph # (Auto) (0.8-4.8) 10^3/u L [place] # (Auto) (0.2-0.9) 10^3/u L Eos # (Auto) (0.0-0.8) 10^3/u L Baso # (Auto) (0.0-0.1) 10^3/u L Nucleated RBC % (a uto) % Nucleated RBCs # /100WBC Sodium 136 Potassium 2.3 L* Chloride 96 L Carbon Dioxide 29 Anion Gap 13.3 BUN 14 Creatinine 0.8 GFR Calculation 74.7 L Glucose 109 Calculated Osmolal ity 283 L Calcium 8.7 Total Bilirubin 0.7 AST 20 ALT 10 Alkaline Phosphata se 115 H Total Protein 7.1 Albumin 3.4 L Globulin 3.7 Lipase 24 Urine Color (Yellow) Urine Appearance (CLEAR) Urine pH (5-7) Ur Specific Gravit y (1.005-1.030) Urine Protein (Negative) Urine Glucose (UA) (Normal) Urine Ketones (Negative) Urine Blood (Negative) Urine Nitrate (Negative) Urine Bilirubin (Negative) Urine Urobilinogen (Negative) mg/dL Ur Leukocyte Shantelle ase (Negative) Urine RBC (0-2) /hpf Urine WBC (0-5) /hpf Ur Squamous Epith Cells (0-5) /hpf Amorphous Sediment Urine Bacteria (NONE) /hpf Urine Yeast /hpf Imaging Data ^: CT Abd/Pel: Attestation: I personally reviewed and interpreted this imaging study as follows: Radiologist's impression: [address] [address] [address] Scan Report Signed Patient: Irma Jones #: [id number] : 1965Acct#:[id number] Age/Sex: 55 / FADM Date: 12/13/20 Loc: ERRoom/Bed: Attending Dr: Ordering Provider/Ordering MD: Herminio Benavidez Date of Service: 12/13/20 Procedure(s): CT abdomen pelvis wo con [id number] Accession Number(s): [id number] Report Number: [id number] WS: [id number] CT ABDOMEN PELVIS TECHNIQUE: Noncontrast CT of the abdomen and pelvis with coronal and sagittal reformatted images. CLINICAL INFORMATION: abdominal pain COMPARISON: CT November 08, 2020 DLP: 1244.[address] scans at [facility] use at least one of these dose optimization techniques: automated exposure control; mA and/or kV adjustment per patient size (includes targeted exams where dose is matched to clinical indication); or iterative reconstruction. FINDINGS: Again seen are prior postoperative changes midline laparotomy with presumed seroma along the abdominal incision increased in size from previous. Today bilobed incisional seroma measures 9.3 x 6.1 x 6.5 cm closely small bowel loops with no evidence of obstruction. This is similar in appearance to previous. Fluid collection extends into the abdomen wall or mesh repair today with a neck at the hernia site measuring 1.7 CM. Otherwise no significant changes from previous. Cirrhosis with hepatomegaly. Cholecystectomy. Normal GE junction. Adrenal glands are normal. No hydronephrosis. Calcified abdominal aorta. Sigmoid diverticulosis. Prior postoperative hysterectomy and oophorectomy. CT/CT abdomen pelvis con [id number] IMPRESSION: 1. Prior postoperative changes midline abdominal laparotomy with increased attenuation fluid collection likely seroma. Today this has a bilobed configuration extending into the lower abdomen/pelvis along the repair site. This measures approximately 9.3 x 6.1 x 6.5 cm 2. Adjacent small bowel loops although with no evidence of obstruction. 3. Otherwise no significant change from previous. Notified JOSHUA Hernandez at 12/13/2020 10:27 AM. Dictated By:Johnie Flores MD Signed By:Johnie Flores MDSigned Date/Time:12/13/20 1028 DD/ 1016 Discharge Plan Discharge Patient Disposition: Admitted As Inpatient Admit Provider: Jalil Bell Clinical Impression: Abdominal wall abscess at site of surgical wound Condition: Stable Sign Out Sign Out Data: Patient Sign Out occurred on 12/13/20 at 11:06. Patient's care was discussed, and care was transferred from to Carroll Kline DO. Coding Level of Care Code ED Mill Tender Washing for Chg Fwd Exam Comprehensive Documented by User: Carroll Kline DO 12/16/20 06:08 HPI - Abdominal Pain General: Chief Complaint: Abdominal Pain Stated Complaint: AB PAIN, POST SURGERY Time Seen by Provider: 12/13/20 08:52 History of Present Illness: HPI narrative: 55-year-old female initially seen by physicians dental front office assistant. Reviewed history and chart is seen the patient as well. History consistent with what is found to physicians assistants note. Associated Symptoms: Reports fever(s); Denies bloating, chills, coffee ground emesis, constipation, diarrhea, dysuria, hematochezia, hematemesis, melena, nausea and vomiting Review of Systems Const: Reports: fever(s); Denies: chills, body aches, change in appetite, fatigue or malaise ENMT: Denies: throat pain, ear or mastoid pain, nasal discharge or nasal congestion Card: Denies: chest pain, edema, dyspnea on exertion or orthopnea Resp: Denies: dyspnea, productive cough or non-productive cough GI: Denies: abdominal pain, nausea, vomiting, hematemesis, coffee ground emesis, diarrhea, constipation, bloating, hematochezia or melena : Denies: flank pain, difficulty voiding, dysuria, urinary frequency or urinary urgency Skin/Breast: Denies: rash or pruritus PFSH ED PFSH: Medical History Acute kidney injury Bowel perforation COPD (chronic obstructive pulmonary disease) Generalized anxiety disorder 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, recurrent severe without psychotic features Peritonitis (acute) generalized Pneumonia Rhabdomyolysis Septic shock Shock liver Surgical History H/O drainage of abscess (~12/13/20) Intra-abdominal H/O exploratory laparotomy drainage of intra abdominal abscess H/O of hysterectomy with bilateral oophorectomy Family History Mother CHF (congestive heart failure) Social History Smoking and tobacco status: current every day smoker cigarettes Packs smoked per day: 1 Alcohol intake: current Alcohol intake frequency: few times a month Household members: family Marital status: Current occupational status: unemployed History of recent travel: No Physical Exam Const: COMMON NORMALS: no acute distress GENERAL APPEARANCE: cooperative and comfortable ORIENTATION/CONSCIOUSNESS: Yes awake, Yes oriented to person, Yes oriented to place and Yes oriented to time HENMT: COMMON NORMALS: normocephalic, atraumatic and hearing grossly normal bilaterally HEAD & SCALP: normocephalic and atraumatic Neck/C-Spine: COMMON NORMALS: no JVD Resp: COMMON NORMALS: normal respiratory effort, No retractions, No use of accessory muscles and clear to auscultation bilaterally AUSCULTATION: clear to auscultation bilaterally Cardio: COMMON NORMALS: no JVD, regular rate, regular rhythm and No murmurs present (Cardio) RATE: regular rate RHYTHM: regular rhythm GI: COMMON NORMALS: No hepatosplenomegaly present AUSCULTATION: Yes normoactive bowel sounds PALPATION: Yes Tenderness to palpation present (GI), No Guarding due to palpation present (GI) and Yes No hepatosplenomegaly present OTHER: Hormonal tender abdominal wall mass it seems to be fluctuant its nearly coming to a point at the site of the previous incision. No active drainage. Extremity: COMMON NORMALS: normal to inspection, capillary refill normal, no clubbing, cyanosis or edema, no calf tenderness and no pedal edema Neuro: SENSORIUM/ORIENTATION: Yes oriented to person, Yes oriented to place and Yes oriented to time Skin: COMMON NORMALS: no rashes or lesions noted GENERAL SKIN EXAM: no rashes or lesions noted Course Vital Signs: Vital signs: Vital Signs Temperature 98.6 F 12/15/20 17:21 Pulse Rate 81 12/15/20 17:21 Respiratory Rate 18 12/15/20 17:21 Blood Pressure 157/106 12/15/20 17:21 Pulse Oximetry 96 12/15/20 17:21 MDM - Abdominal Pain MDM Narrative: Medical decision making narrative: Discussed with Dr. Bell will admit he asked about having radiology place a drain contacted Dr. Flores he did not think the drain would be able to stay in place but will see the patient and reviewed. Orders are written. Lab Data: Labs: Lab Results 12/13/20 12/13/20 12/13/20 Range/Units 09:09 09:10 09:10 WBC 22.0 H (4.0-10.0) 10^3/ uL RBC 4.87 (4.1-5.3) 10^6/u L Hgb 14.4 (11.5-15.3) g/dL Hct 42.4 (37.0-47.0) % MCV 87.1 (81-99) fL MCH 29.6 (28.0-34.0) pg MCHC 34.0 (30.0-36.0) g/dL RDW 13.8 (12.1-15.1) % Plt Count 279 (130-400) 10^3/c mm MPV 9.0 (7.4-10.4) fL Neut % (Auto) 85.6 % Lymph % (Auto) 7.1 % [place] % (Auto) 5.3 % Eos % (Auto) 0.5 % Baso % (Auto) 0.4 % Neut # (Auto) 18.84 H (1.8-7.7) 10^3/u L Lymph # (Auto) 1.6 (0.8-4.8) 10^3/u L [place] # (Auto) 1.2 H (0.2-0.9) 10^3/u L Eos # (Auto) 0.1 (0.0-0.8) 10^3/u L Baso # (Auto) 0.1 (0.0-0.1) 10^3/u L Nucleated RBC % (a uto) 0 % Nucleated RBCs # 0.0 /100WBC Sodium Cancelled Potassium Cancelled Chloride Cancelled Carbon Dioxide Cancelled Anion Gap Cancelled BUN Cancelled Creatinine Cancelled GFR Calculation Cancelled Glucose Cancelled Calculated Osmolal ity Cancelled Calcium Cancelled Total Bilirubin Cancelled AST Cancelled ALT Cancelled Alkaline Phosphata se Cancelled Total Protein Cancelled Albumin Cancelled Globulin Cancelled Lipase Cancelled Urine Color Yellow (Yellow) Urine Appearance Clear (CLEAR) Urine pH 6 (5-7) Ur Specific Gravit y 1.015 (1.005-1.030) Urine Protein Neg (Negative) Urine Glucose (UA) Norm (Normal) Urine Ketones Negative (Negative) Urine Blood Neg (Negative) Urine Nitrate Negative (Negative) Urine Bilirubin Neg (Negative) Urine Urobilinogen 4 H (Negative) mg/dL Ur Leukocyte Shantelle ase Negative (Negative) Urine RBC None (0-2) /hpf Urine WBC Rare (0-5) /hpf Ur Squamous Epith Cells 10-15 H (0-5) /hpf Amorphous Sediment Not Reportable Urine Bacteria Trace (NONE) /hpf Urine Yeast Trace /hpf 12/13/20 Range/Units 09:40 WBC (4.0-10.0) 10^3/ uL RBC (4.1-5.3) 10^6/u L Hgb (11.5-15.3) g/dL Hct (37.0-47.0) % MCV (81-99) fL MCH (28.0-34.0) pg MCHC (30.0-36.0) g/dL RDW (12.1-15.1) % Plt Count (130-400) 10^3/c mm MPV (7.4-10.4) fL Neut % (Auto) % Lymph % (Auto) % [place] % (Auto) % Eos % (Auto) % Baso % (Auto) % Neut # (Auto) (1.8-7.7) 10^3/u L Lymph # (Auto) (0.8-4.8) 10^3/u L [place] # (Auto) (0.2-0.9) 10^3/u L Eos # (Auto) (0.0-0.8) 10^3/u L Baso # (Auto) (0.0-0.1) 10^3/u L Nucleated RBC % (a uto) % Nucleated RBCs # /100WBC Sodium 136 Potassium 2.3 L* Chloride 96 L Carbon Dioxide 29 Anion Gap 13.3 BUN 14 Creatinine 0.8 GFR Calculation 74.7 L Glucose 109 Calculated Osmolal ity 283 L Calcium 8.7 Total Bilirubin 0.7 AST 20 ALT 10 Alkaline Phosphata se 115 H Total Protein 7.1 Albumin 3.4 L Globulin 3.7 Lipase 24 Urine Color (Yellow) Urine Appearance (CLEAR) Urine pH (5-7) Ur Specific Gravit y (1.005-1.030) Urine Protein (Negative) Urine Glucose (UA) (Normal) Urine Ketones (Negative) Urine Blood (Negative) Urine Nitrate (Negative) Urine Bilirubin (Negative) Urine Urobilinogen (Negative) mg/dL Ur Leukocyte Shantelle ase (Negative) Urine RBC (0-2) /hpf Urine WBC (0-5) /hpf Ur Squamous Epith Cells (0-5) /hpf Amorphous Sediment Urine Bacteria (NONE) /hpf Urine Yeast /hpf Discharge Plan Discharge Patient Disposition: Admitted As Inpatient Admit Provider: Jalil Bell Clinical Impression: Abdominal wall abscess at site of surgical wound Condition: Stable Sign Out Sign Out Data: Patient Sign Out occurred on 12/13/20 at 11:06. Patient's care was discussed, and care was transferred from to Carroll Kline DO. Coding Level of Care Code ED Mill Tender Washing for Jabarig Fwd Exam Comprehensive
[2020-12-13 09:18] LABS: Basophils # 0.1 10^3/uL (0.0-0.1); Basophils % 0.4 %; Eosinophils # 0.1 10^3/uL (0.0-0.8); Eosinophils % 0.5 %; Hematocrit 42.4 % (37.0-47.0); Hemoglobin 14.4 g/dL (11.5-15.3); Lymphocytes # 1.6 10^3/uL (0.8-4.8); Lymphocytes % 7.1 %; Mean Corpuscular Hemoglobin 29.6 pg (28.0-34.0); Mean Corpuscular Volume 87.1 fL (81-99); Monocytes # 1.2 10^3/uL (0.2-0.9); Monocytes % 5.3 %; Neutrophils # 18.84 10^3/uL (1.8-7.7); Neutrophils % 85.6 %; Nucleated Red Blood Cells % 0 %; Platelet Count 279 10^3/cmm (130-400); Red Blood Count 4.87 10^6/uL (4.1-5.3); Red Cell Distribution Width 13.8 % (12.1-15.1)
[2020-12-13] MEDS: morphine 4 mg/mL SDV 1 mL IVP (09:21)
[2020-12-13] MEDS: ondansetron 2 mg/ML SDV 2 mL 4 MG IVP ×2 (09:21→19:30)
--- NOTE | 2020-12-13 09:23 | CT_ITS ---
WS: [id number] CT ABDOMEN PELVIS TECHNIQUE: Noncontrast CT of the abdomen and pelvis with coronal and sagittal reformatted images. CLINICAL INFORMATION: abdominal pain COMPARISON: CT November 08, 2020 DLP: 1244.[address] scans at [facility] use at least one of these dose optimization techniques: automat ed exposure control; mA and/or kV adjustment per patient size (includes targeted exams where dose is matched to clinical indication); or iterative reconstruction. FINDINGS: Again seen are prior postoperative changes midline laparotomy with presumed seroma along the abdomina l incision increased in size from previous. Today bilobed incisional seroma measures 9.3 x 6.1 x 6.5 cm closely small bowel loops with no evidence of obstruction. This is similar in appearance to previo us. Fluid collection extends into the abdomen wall or mesh repair today with a neck at the hernia sit e measuring 1.7 CM. Otherwise no significant changes from previous. Cirrhosis with hepatomegaly. Cholecystectomy. Normal GE junction. Adrenal glands are normal. No hydronephrosis. Calcified abdominal aorta. Sigmoid diverti culosis. Prior postoperative hysterectomy and oophorectomy. CT/CT abdomen pelvis wo con [id number] IMPRESSION: 1. Prior postoperative changes midline abdominal laparotomy with increased att enuation fluid collection likely seroma. Today this has a bilobed configuration extending into the lower abdomen/pelvis along the repair site. This measures a pproximately 9.3 x 6.1 x 6.5 cm 2. Adjacent small bowel loops although with no evidence of obstruction. 3. Otherwise no significant change from previous. Notified JOSHUA Hernandez at 12/13/2020 10:27 AM.
[2020-12-13 09:34] LABS: Bacteria Urine TRACE /hpf; Bilirubin Urine Neg (Negative); Blood Urine Neg (Negative); Glucose Urine UA Norm (Normal); Ketones Urine Negative (Negative); Leukocyte Esterase Urine Negative (Negative); Nitrate Urine Negative (Negative); Protein Urine Neg (Negative); Specific Gravity, Urine 1.015 (1.005-1.030); Urine Appearance Clear (CLEAR); Urine Color Yellow (Yellow); Urobilinogen Urine 4 mg/dL (Negative); WBC Urine RARE /hpf (0-5); pH Urine 6 (5-7)
[2020-12-13 09:35] LABS: Add Urine Culture? No
[2020-12-13 09:38] LABS: Slide Review Slide Review Perform
[2020-12-13 10:05] LABS: Alanine Aminotransferase 10 U/L (0-33); Albumin Level 3.4 g/dL (3.5-5.2); Alkaline Phosphatase 115 IU/L (35-105); Anion Gap 13.3 (5-19); Aspartate Amino Transferase 20 U/L (0-32); Blood Urea Nitrogen 14 mg/dL (6-20); Calcium 8.7 mg/dL (8.5-10.5); Carbon Dioxide 29 mmol/L (22-29); Chloride 96 mmol/L (98-107); Globulin 3.7 g/dL (1.3-4.6); Glomerular Filtration Rate 74.7 mL/min (90-130); Glucose 109 mg/dL (65-115); Lipase 24 U/L (13-60); Osmolality Calculated 283 mOsm/kg (285-295); Sodium 136 mmol/L (136-145); Total Bilirubin 0.7 mg/dL (0.15-1.2); Total Protein 7.1 g/dL (6.6-8.7)
[2020-12-13 10:08] LABS: Potassium 2.3 mmol/L (3.5-5.1)
--- NOTE | 2020-12-13 10:13 | ECG_ITS ---
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 Measurements Intervals [place] Rate: 85 P: 71 [place]: 159 QRS: 15 QRSD: 96 T: 89 QT: 304 QTc: 362 Interpretive Statements SINUS RHYTHM INDETERMINATE AXIS POSSIBLE ANTERIOR MYOCARDIAL INFARCTION , PROBABLY OLD [30 ms Q WAVE IN V3/V4, OR R < 0.2 mV IN V4] Compared to ECG 05/01/2020 08:10:54 Indeterminate axis now present Myocardial infarct finding still present Electronically Signed On 12-14-2020 12:21:13 CDT by Elicia Chaudhry M.D. [email or web address]
[2020-12-13] MEDS: potassium chloride premix 100 ML 50 MEQ IV (10:22)
[2020-12-13] MEDS: sodium chloride 0.9% 1,000 ML 999 ML IV ×2 (10:22→11:32)
[2020-12-13] MEDS: piperacillin-tazobactam 3.375 GM in sodium chloride 0.9% (plus) 50 ML IV ×2 (10:44→18:11)
[2020-12-13] MEDS: diphenhydrAMINE 50 mg/mL SDV 1mL IVP (10:44)
[2020-12-13] MEDS: lidocaine 1% 5 ML in potassium chloride premix 100 ML 25 ML IV (11:31)
--- NOTE | 2020-12-13 12:14 | PC.PHAR ---
PT STATES SHE TAKES CARE OF HER OWN MEDICATIONS-PT STATES SHE NEVER GOT THE TIZANIDINE THAT WAS WRITTEN IN 11/24/20-
[2020-12-13] MEDS: D5-NS 0.45% + KCL 20 mEq 20 MEQ/1,000 ML BAG 125 MEQ IV ×2 (15:52→19:59)
--- NOTE | 2020-12-13 17:22 | P.HP_ITS ---
Providers/Chief Complaint Admitting Physician: Jalil Bell MD Primary Care Provider: Paulo Stevens MD Chief Complaint: AB PAIN, POST SURGERY History of Present Illness Irma Jones is a 55 year old female who presented to the ER today with 24-hour history of abdominal pain. The pain is localized to the lower abdomen, does not radiate, worse with physical activity, no relieving factors. Patient had nausea but no vomiting. She has been having fevers and chills and had 1 episode of diarrhea yesterday. She denies any constipation. She had recently seen Dr. Mesa in the office on 12/01/2020 and was scheduled for an EGD for evaluation of GERD. She had a complicated course last year when she presented to the hospital on 04/13/2020 with abdominal pain and was diagnosed with perforated bowel, intra- abdominal abscess and and septic shock with acute kidney injury. Her postoperative course was complicated by acute respiratory failure. Patient underwent laparotomy with drainage of intra-abdominal abscess on 04/14/2020 with subsequent debridement of abdominal wall wound on 04/30/2020. Patient subsequently transferred to long-term care on 05/02/2020 due to her decon ditioning. Review of Systems General: Reports: 10 or more systems reviewed and unremarkable except in HPI and below Medications/Allergies Home Medications Medication Instructions Recorded Confirmed Last Taken Type hydrochlorothiazide 12.5 mg tablet 12.5 mg PO DAILY@09/17/19 12/13/20 12/12/20 History valsartan 80 mg tablet 80 mg PO DAILY@09/17/19 12/13/20 12/12/20 History baclofen 10 mg tablet 10 mg PO TID PRN 11/25/19 12/13/20 12/12/20 History tizanidine 4 mg tablet 4 mg PO BID PRN #60 tab MDD 2 11/25/19 12/13/20 Unknown Rx gemfibrozil 600 mg tablet 600 mg PO BID@06/10/20 12/13/20 12/12/20 History alprazolam 1 mg tablet 1 mg PO TID PRN #90 tab 09/30/20 12/13/20 12/12/20 Rx hydroxyzine HCl 50 mg tablet 50 mg PO BID PRN #180 tab 09/30/20 12/13/20 Unknown Rx Celexa 40 mg PO DAILY@12/13/20 12/13/20 12/12/20 History amitriptyline 25 mg PO DAILY@12/13/20 12/13/20 12/12/20 History amlodipine 5 mg PO DAILY@12/13/20 12/13/20 12/12/20 History cetirizine [Zyrtec] 10 mg PO DAILY@12/13/20 12/13/20 12/12/20 History ibuprofen [Advil Migraine] 400 mg PO PRN 12/13/20 12/13/20 12/12/20 History pantoprazole [Protonix] 40 mg PO BID@,12/13/20 12/13/20 12/12/20 History Allergies Allergy/AdvReac Type Severity Reaction Status Date / Time amoxicillin Allergy Severe ALGY-Rash Verified 12/13/20 13:01 codeine Allergy Unknown rash, Verified 12/13/20 13:01 itching Penicillins Allergy Unknown rash, Verified 12/13/20 13:01 itching Sulfa (Sulfonamide Allergy Unknown rash, Verified 12/13/20 13:01 Antibiotics) itching Iodinated Contrast Media Allergy Unknown Verified 12/13/20 13:01 PFSH Acute PFSH: Medical History (Updated 12/13/20 @ 17:23 by Jalil Bell MD) Acute kidney injury Bowel perforation COPD (chronic obstructive pulmonary disease) Generalized anxiety disorder 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, recurrent severe without psychotic features Peritonitis (acute) generalized Pneumonia Rhabdomyolysis Septic shock Shock liver Surgical History (Updated 12/13/20 @ 16:47 by Jalil Bell MD) H/O exploratory laparotomy drainage of intra abdominal abscess H/O of hysterectomy with bilateral oophorectomy Family History Mother CHF (congestive heart failure) Social History Smoking and tobacco status: current every day smoker cigarettes Packs smoked per day: 1 Alcohol intake: current Alcohol intake frequency: few times a month Household members: family Marital status: Current occupational status: unemployed History of recent travel: No Vitals/I&O/Wt Last Vital Signs Temp 100.0 F H 12/13/20 14:44 Pulse 88 12/13/20 14:44 Resp 18 12/13/20 14:44 BP 92/61 12/13/20 14:44 Pulse Ox 93 12/13/20 14:44 12/13/20 12/13/20 12/13/20 06:59 14:59 22:59 Intake Total 150 / 2255 2105 / 2255 Balance 150 / 2255 2105 / 2255 Weight last 48 hrs Weight 170 lb Physical Exam Narrative: EXAM NARRATIVE: HEENT: Normocephalic, on 3 L oxygen Eye: Sclera /conjunctiva normal Respiratory and chest: Bilateral clear breath sounds on auscultation Cardiovascular: Normal S1 and S2 heart sounds Abdomen: Soft to palpation, midline laparotomy scar healed by secondary intention, palpable abdominal wall mass inferior to the incision measuring about 5 x 5 cm, tender to palpation Neurological: Oriented to place person and time Skin: Intact, no lesions appreciated on gross exam Data : 12/13/20 09:10 12/13/20 09:40 Micro: Microbiology 12/13/20 10:51 Blood Culture - Preliminary Blood SPECIMEN COLLECTED 12/13/20 10:49 Blood Culture - Preliminary Blood SPECIMEN COLLECTED A&P Assessment and plan (1) Intra-abdominal abscess: 55-year-old female with a prior history of multiorgan failure from bowel perforation/intra-abdominal abscess requiring laparotomy. Patient now presents with a new intra-abdominal abscess extending subcutaneously measuring 9.3 x 6.1 x 6.5 cm. The abscess not amenable to percutaneous drainage since it superficial. Patient was hemodynamically stable but is now slightly hypotensive with systolic in the 90s. Hypokalemia potassium 2.3: Patient received 60 mEq of potassium in the ER recheck potassium and mag today Sepsis: WBC is 22K, plan for drainage of intra-abdominal abscess under MAC today Place Romano catheter in the ER Pepcid for GI prophylaxis Lovenox for DVT prophylaxis IV vancomycin and Zosyn to be started empirically Daily labs D5 1/2NS +20 KCl at 125 cc/h Status: Acute Attestations Medical Necessity Statement*: Patient with multiorgan failure history who presents with intra-abdominal abscess, WBC 20 2K requiring continued inpatient stay greater than 2 nights Coding Level of Care Code Acute Commodities Requirements Analyst for [facility] Diagnoses Intra-abdominal abscess K65.1
[2020-12-13] MEDS: vancomycin 1,000 MG in sodium chloride 0.9% 250 ML 250 MG IV (18:00)
--- NOTE | 2020-12-13 18:21 | P.ANESASSM_ITS ---
Pre-Anesthetic Assessment Pre-Anesthetic Assessment: Height/Weight: Height 1.52 m Weight 77.111 kg Temp Pulse Resp BP Pulse Ox 100.0 F H 88 18 92/61 93 12/13/20 14:44 12/13/20 14:44 12/13/20 14:44 12/13/20 14:44 12/13/20 14:44 Preop Diagnosis: abdominal abscess Proposed Procedure: Operation Date: 12/13/20 18:45 Proposed Procedures p Exploratory Laparotomy(Not Applicable) - Jalil Bell MD Was Beta Edwin taken within 24 hours: N/A Was Clonidine taken within 24 hours: N/A Social: Social History: Tobacco and No alcohol Exam: Pre-Anes Outpt Exam: alert, oriented x 3 and regular rate & rhythm Airway: Submandibular: WNL Cervical ROM: WNL MP: 2 Dentition: Chipped and Loose Pulmonary: Pulmonary: COPD CV/HEM: CV/HEM: Anemia and HTN GI: GI: GERD Metabolic: Comments: Hypokalemia Neuropsych: Neuropsych: Anxiety and Depression Anesthetic Plan: ASA status: 3E Anesthesia: General Other: Mod RSI Risk of > 500 ml blood loss (7ml/kg in children): No Meds/Allergies Current Medications: Current Medications Generic Name Dose Route Start Last Admin Trade Name Freq PRN Reason Stop Dose Admin Vancomycin HCl 1,0 00 mg/ 250 mls @ 250 mls /hr 12/13/20 17:00 12/13/20 18:00 Sodium Chloride IV 250 mls/hr Q12H BRITTNEY Administration Protocol PFSH Anesthesia PFSH: Medical History (Updated 12/13/20 @ 17:23 by Jalil Bell MD) Acute kidney injury Bowel perforation COPD (chronic obstructive pulmonary disease) Generalized anxiety disorder 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, recurrent severe without psychotic features Peritonitis (acute) generalized Pneumonia Rhabdomyolysis Septic shock Shock liver Surgical History (Updated 12/13/20 @ 16:47 by Jalil Bell MD) H/O exploratory laparotomy drainage of intra abdominal abscess H/O of hysterectomy with bilateral oophorectomy Family History Mother CHF (congestive heart failure) Social History Smoking and tobacco status: current every day smoker cigarettes Packs smoked per day: 1 Alcohol intake: current Alcohol intake frequency: few times a month Household members: family Marital status: Current occupational status: unemployed History of recent travel: No Data Anesthesia CBC & Chem 7: 12/13/20 09:10 12/13/20 09:40 Other Labs: Laboratory Results - last 48 hr 12/13/20 12/13/20 12/13/20 09:09 09:10 09:10 WBC 22.0 H RBC 4.87 Hgb 14.4 Hct 42.4 MCV 87.1 MCH 29.6 MCHC 34.0 RDW 13.8 Plt Count 279 MPV 9.0 Neut % (Auto) 85.6 Lymph % (Auto) 7.1 [place] % (Auto) 5.3 Eos % (Auto) 0.5 Baso % (Auto) 0.4 Neut # (Auto) 18.84 H Lymph # (Auto) 1.6 [place] # (Auto) 1.2 H Eos # (Auto) 0.1 Baso # (Auto) 0.1 Nucleated RBC % (auto) 0 Nucleated RBCs # 0.0 Sodium Cancelled Potassium Cancelled Chloride Cancelled Carbon Dioxide Cancelled Anion Gap Cancelled BUN Cancelled Creatinine Cancelled GFR Calculation Cancelled Glucose Cancelled Calculated Osmolality Cancelled Lactic Acid Calcium Cancelled Total Bilirubin Cancelled AST Cancelled ALT Cancelled Alkaline Phosphatase Cancelled Total Protein Cancelled Albumin Cancelled Globulin Cancelled Lipase Cancelled Urine Color Yellow Urine Appearance Clear Urine pH 6 Ur Specific [place] 1.015 Urine Protein Neg Urine Glucose (UA) Norm Urine Ketones Negative Urine Blood Neg Urine Nitrate Negative Urine Bilirubin Neg Urine Urobilinogen 4 H Ur Leukocyte Esterase Negative Urine RBC None Urine WBC Rare Ur Squamous Epith Cells 10-15 H Amorphous Sediment Not Reportable Urine Bacteria Trace Urine Yeast Trace 12/13/20 12/13/20 09:40 12:30 WBC RBC Hgb Hct MCV MCH MCHC RDW Plt Count MPV Neut % (Auto) Lymph % (Auto) [place] % (Auto) Eos % (Auto) Baso % (Auto) Neut # (Auto) Lymph # (Auto) [place] # (Auto) Eos # (Auto) Baso # (Auto) Nucleated RBC % (auto) Nucleated RBCs # Sodium 136 Potassium 2.3 L* Chloride 96 L Carbon Dioxide 29 Anion Gap 13.3 BUN 14 Creatinine 0.8 GFR Calculation 74.7 L Glucose 109 Calculated Osmolality 283 L Lactic Acid 1.0 Calcium 8.7 Total Bilirubin 0.7 AST 20 ALT 10 Alkaline Phosphatase 115 H Total Protein 7.1 Albumin 3.4 L Globulin 3.7 Lipase 24 Urine Color Urine Appearance Urine pH Ur Specific [place] Urine Protein Urine Glucose (UA) Urine Ketones Urine Blood Urine Nitrate Urine Bilirubin Urine Urobilinogen Ur Leukocyte Esterase Urine RBC Urine WBC Ur Squamous Epith Cells Amorphous Sediment Urine Bacteria Urine Yeast Micro: Microbiology 12/13/20 10:51 Blood Culture - Preliminary Blood SPECIMEN COLLECTED 12/13/20 10:49 Blood Culture - Preliminary Blood SPECIMEN COLLECTED Cardiac Studies: 2 No Data to Display
[2020-12-13 18:40] LABS: Potassium 2.9 mmol/L (3.5-5.1)
--- NOTE | 2020-12-13 18:48 | PM.OP ---
Operative Report Date of procedure: December 13, 2020 Pre-op Diagnosis: Intra-abdominal abscess measuring 9.3 x 6.1 x 6.5 cm Post-op Diagnosis: 1. No evidence of enterocutaneous fistula 2. Intra-abdominal abscess in a bilobed configuration extending subcutaneously Procedure Done: Open drainage of intra-abdominal abscess Specimens removed/disposition: Aerobic and anaerobic wound cultures Surgeon: Jalil Bell Anesthesia: General Condition: stable Disposition: ICU Procedure: The patient was taken to the operating room and intubated under general anesthesia after IV antibiotic had been administered. The abdomen was prepped and draped in a sterile manner after Romano catheter was placed. Using a 15 blade a 5 cm incision was made at the area of maximum fluctuance inferior to the umbilicus with drainage of about 300 cc of robina pus. The abscess cavity extended intra-abdominally through the fascial defect. After drainage of pus the wound was irrigated with saline. The abscess wall within the peritoneal cavity appeared intact without any evidence of enterocutaneous fistula. The intra-abdominal as well as the subcutaneous abscess cavity was packed with moist Kerlix gauze and covered with ABDs. The patient was extubated and transferred to ICU in stable condition.
--- NOTE | 2020-12-13 19:15 | ANE.PACU2 ---
Inpatient post-anesthesia follow up: Airway intact: Yes Vital signs: Temperature 100.0 F Pulse Rate [Right Radial] 104 Pulse Rate 88 Respiratory Rate 18 Blood Pressure [Le ft Arm] 106/55 Blood Pressure 92/61 Pulse Oximetry 93 Oxygen Delivery Me thod Nasal Cannula Oxygen Flow Rate 2 Fraction of Inspir ed Oxygen Hydration adequate: Yes Nausea and vomiting: No Pain level: 1 Mental status: Baseline
--- NOTE | 2020-12-13 19:33 | ANE.PACU2 ---
Inpatient post-anesthesia follow up: Airway intact: Yes Vital signs: Temperature 100.0 F Pulse Rate [Right Radial] 104 Pulse Rate 88 Respiratory Rate 18 Blood Pressure [Le ft Arm] 106/55 Blood Pressure 92/61 Pulse Oximetry 93 Oxygen Delivery Me thod Nasal Cannula Oxygen Flow Rate 2 Fraction of Inspir ed Oxygen Hydration adequate: Yes Nausea and vomiting: Yes Pain level: 3 Mental status: Baseline Additional Comments: Extubated to ICU.
[2020-12-13] MEDS: famotidine 20 mg/2 mL INJ IVP (19:59)
--- NOTE | 2020-12-13 23:00 | PC.NURSE ---
Pt is noted to be hypotensive. [facility] blood pressure was 80/46. Pt is asymptomatic and is able to carry on a full conversation with me. Pt has put out approx 400mL since around 1900. Small/moderate amounts of saturation noted on dressing at this time. Pt c/o mild tenderness on the left side of the dressing that has not changed since coming back from surgery. Pt denies any other tenderness or new tenderness. Abdomen is soft when palpated. Notified hospitalist. No new orders at this time. Will continue to monitor pt.
[2020-12-13] MEDS: amitriptyline 25 mg Tablet PO (23:56)
[2020-12-13] MEDS: cetirizine 10 mg Tablet PO (23:56)
[2020-12-14] VITALS (246 sets, daily range): BP systolic 72–144; BP diastolic 35–86; PULSE 70–101; RESP 9–39; TEMP 36.3; O2SAT 86–98
[2020-12-14] MEDS: piperacillin-tazobactam 3.375 GM in sodium chloride 0.9% (plus) 50 ML IV ×3 (01:00→16:09)
[2020-12-14] MEDS: D5-NS 0.45% + KCL 20 mEq 20 MEQ/1,000 ML BAG 125 MEQ IV ×3 (02:14→20:20)
[2020-12-14 04:54] LABS: Anion Gap 10.8 (5-19); Blood Urea Nitrogen 11 mg/dL (6-20); Calcium 7.4 mg/dL (8.5-10.5); Carbon Dioxide 25 mmol/L (22-29); Chloride 103 mmol/L (98-107); Glomerular Filtration Rate 74.7 mL/min (90-130); Glucose 83 mg/dL (65-115); Magnesium 1.7 mg/dL (1.7-2.3); Osmolality Calculated 281 mOsm/kg (285-295); Sodium 136 mmol/L (136-145)
[2020-12-14 05:13] LABS: Potassium 2.8 mmol/L (3.5-5.1)
[2020-12-14 05:24] LABS: Hemoglobin 11.7 g/dL (11.5-15.3); Red Blood Count 4.04 10^6/uL (4.1-5.3); White Blood Count 12.5 10^3/uL (4.0-10.0)
[2020-12-14 05:25] LABS: Basophils # 0.1 10^3/uL (0.0-0.1); Basophils % 0.4 %; Eosinophils # 0.2 10^3/uL (0.0-0.8); Eosinophils % 1.7 %; Hematocrit 37.4 % (37.0-47.0); Lymphocytes # 1.6 10^3/uL (0.8-4.8); Lymphocytes % 12.9 %; Mean Corpuscular HGB Conc 31.3 g/dL (30.0-36.0); Mean Corpuscular Volume 92.6 fL (81-99); Monocytes # 0.8 10^3/uL (0.2-0.9); Monocytes % 6.2 %; Neutrophils # 9.81 10^3/uL (1.8-7.7); Neutrophils % 78.2 %; Nucleated Red Blood Cells % 0 %; Platelet Count 192 10^3/cmm (130-400)
[2020-12-14] MEDS: famotidine 20 mg/2 mL INJ IVP ×2 (05:45→16:09)
[2020-12-14] MEDS: lidocaine 1% 5 ML in potassium chloride premix 100 ML 25 ML IV (05:45)
[2020-12-14] MEDS: vancomycin 1,000 MG in sodium chloride 0.9% 250 ML 250 MG IV ×2 (05:46→16:09)
[2020-12-14] MEDS: hydroCHLOROthiazide 25 mg Tablet 12.5 MG PO (09:10)
[2020-12-14] MEDS: sennosides-docusate Tablet 1 TAB PO (09:10)
[2020-12-14] MEDS: potassium chloride ER 20 mEq Tablet 80 MEQ PO (09:14)
[2020-12-14] MEDS: gemfibrozil 600 mg Tablet PO ×2 (09:14→18:06)
--- NOTE | 2020-12-14 09:45 | PC.NURSE ---
at bedside and gave this nurse verbal orders to change dressing as needed. Dressing changed this am
--- NOTE | 2020-12-14 09:49 | PC.CHAP ---
Pastoral Care Encounter/Spiritual Assessment Type of Contact [] Declined senior lead developer visit [] Patient/Family/Request visit [] Outpatient visit [] Follow-up visit [] Physician referral [] Code/Alert [x] Routine visit [] Staff referral [] Actively dying [] Patient sleeping [] Family support [] [] Out of room [] Palliative care [] [] Receiving care in room [] Pre-surgical visit [] Trauma [] Long length of stay [x] ICU visit [] Other: Relational/Emotional Strength [] Patient feels connected with others/family/visitors/staff [] Distress [] Loneliness/isolation [] Abandonment Spirituality of Patient [] Person of Bea [] Attends Episcopalian of their Bea [] Believes in Prayer [] Reads Bible or Holiness materials [] There are Spiritual issues to be addressed Web Design Specialist Interventions [x] Prayer [] Active listening [] Non-anxious presence [] Spiritual/emotional support [] Crisis/trauma care [] Spiritual counseling [] Bereavement support [] Provided bereavement packet [] Provided Bible/devotional materials [] Provided toy/stuffed animal, coloring book to patient or family member [] Provided Communion [] Anointing/[place] [] Salvation [x] Completed spiritual assessment [] Other: Impact on Illness or Injury [] Angry [] Fearful [] Anxious [] Often cries [] Exhaustion [] Unable to work [] Unable to attend buddhist [] Unable to walk/stand [] Unable to read [] Unable to drive [] Unable to eat/drink [] Unable to sleep [] Unable to be with family [] Patient intubated [] Other: Summary Time spent with patient
--- NOTE | 2020-12-14 12:49 | PC.NURSE ---
Romano was removed at 1200
--- NOTE | 2020-12-14 14:58 | PM.PN ---
Subjective Subjective: Interval history: Patient feels better today, did not take any pain medicines, no nausea or vomiting Vitals/I&O/Wt Last Vital Signs Temp 97.4 F L 12/14/20 06:00 Pulse 75 12/14/20 11:20 Resp 18 12/14/20 11:20 BP 108/66 12/14/20 11:20 Pulse Ox 92 12/14/20 11:20 12/13/20 12/14/20 12/14/20 22:59 06:59 14:59 Intake Total 2921.667 / 4152.917 1081.25 / 4152.917 1039.583 / 1039.583 Output Total 1000 / 1000 300 / 300 Balance 2921.667 / 3152.917 81.25 / 3152.917 739.583 / 739.583 Weight last 48 hrs Weight 170 lb Physical Exam Narrative: EXAM NARRATIVE: Abdomen: Soft, no significant erythema, wound has good granulation tissue Urinary Catheter Management^: f: Cath Placed During This Visit: yes Reason for Continuing Indwelling Catheter: Accurate Measurement of Urinary Output in Critically Ill Patients Urinary Catheter Date of Insertion: 12/13/20 Urinary Catheter Time of Insertion: 18:00 Data : 12/14/20 03:20 12/14/20 03:20 Micro: Microbiology 12/13/20 18:36 Gram Stain - Final Abdomen 12/13/20 10:49 Blood Culture - Preliminary Blood NEGATIVE TO DATE 12/13/20 10:51 Blood Culture - Preliminary Blood NEGATIVE TO DATE A&P Assessment and plan (1) Intra-abdominal abscess: 55-year-old female who presented with intra-abdominal abscess who underwent incision and drainage yesterday. Her white count is down to 12.5. Continue IV vancomycin and Zosyn Hypokalemia: 80 mEq of potassium given p.o. on top of the 60 mEq of potassium given IV Lovenox for DVT prophylaxis Pepcid for GI prophylaxis Continue IV fluids Regular diet Home health for wound care Status: Acute Attestations Medical Necessity Statement*: Status post drainage of abscess requiring 1 more day of IV antibiotics Coding Level of Care Code Acute Remote Pilot Operator for [facility] Fwd Diagnoses Intra-abdominal abscess K65.1
--- NOTE | 2020-12-14 15:00 | PC.NURSE ---
Dressing was changed again during shift. Patient did not request pain medication and stated pain level was at a 0/10. No PRN medications given
--- NOTE | 2020-12-14 17:10 | PC.NURSE ---
Pt tearful. Requesting Xanax and Citalopram. Upset her room is too small and she wants to be discharged. Xanax administered per order. Arelis Naidu RN calling physician regarding starting home med.
--- NOTE | 2020-12-14 17:55 | PC.NURSE ---
Patient up with physical therapy and ambulated around unit. No pain noted after.
[2020-12-14 20:01] LABS: Alanine Aminotransferase 10 U/L (0-33); Albumin Level 2.7 g/dL (3.5-5.2); Alkaline Phosphatase 94 IU/L (35-105); Anion Gap 10.4 (5-19); Aspartate Amino Transferase 28 U/L (0-32); Blood Urea Nitrogen 7 mg/dL (6-20); Calcium 7.5 mg/dL (8.5-10.5); Carbon Dioxide 26 mmol/L (22-29); Chloride 106 mmol/L (98-107); Globulin 3.3 g/dL (1.3-4.6); Glomerular Filtration Rate 104.2 mL/min (90-130); Glucose 84 mg/dL (65-115); Osmolality Calculated 285 mOsm/kg (285-295); Potassium 3.4 mmol/L (3.5-5.1); Sodium 139 mmol/L (136-145); Total Bilirubin 0.6 mg/dL (0.15-1.2)
[2020-12-14] MEDS: acetaminophen 325 mg Tablet 650 MG PO (20:19)
[2020-12-14] MEDS: amitriptyline 25 mg Tablet PO (23:49)
[2020-12-14] MEDS: cetirizine 10 mg Tablet PO (23:49)
[2020-12-15] VITALS (180 sets, daily range): BP systolic 111–160; BP diastolic 58–106; PULSE 66–93; RESP 14–33; TEMP 35.9–37; O2SAT 86–99
[2020-12-15] MEDS: piperacillin-tazobactam 3.375 GM in sodium chloride 0.9% (plus) 50 ML IV ×2 (01:54→08:52)
[2020-12-15 04:17] LABS: Basophils # 0.1 10^3/uL (0.0-0.1); Eosinophils # 0.3 10^3/uL (0.0-0.8); Eosinophils % 3.7 %; Hematocrit 39.3 % (37.0-47.0); Hemoglobin 12.1 g/dL (11.5-15.3); Lymphocytes # 1.6 10^3/uL (0.8-4.8); Lymphocytes % 23.1 %; Mean Corpuscular HGB Conc 30.8 g/dL (30.0-36.0); Mean Corpuscular Hemoglobin 28.6 pg (28.0-34.0); Mean Corpuscular Volume 92.9 fL (81-99); Mean Platelet Volume 8.8 fL (7.4-10.4); Monocytes # 0.5 10^3/uL (0.2-0.9); Monocytes % 6.6 %; Neutrophils # 4.57 10^3/uL (1.8-7.7); Neutrophils % 64.5 %; Nucleated Red Blood Cells % 0 %; Platelet Count 188 10^3/cmm (130-400); Red Blood Count 4.23 10^6/uL (4.1-5.3); Red Cell Distribution Width 13.8 % (12.1-15.1); White Blood Count 7.1 10^3/uL (4.0-10.0)
[2020-12-15] MEDS: D5-NS 0.45% + KCL 20 mEq 20 MEQ/1,000 ML BAG 125 MEQ IV (04:31)
[2020-12-15 04:38] LABS: Anion Gap 9.5 (5-19); Blood Urea Nitrogen 6 mg/dL (6-20); Calcium 7.5 mg/dL (8.5-10.5); Carbon Dioxide 25 mmol/L (22-29); Chloride 107 mmol/L (98-107); Glomerular Filtration Rate 87.2 mL/min (90-130); Glucose 85 mg/dL (65-115); Osmolality Calculated 283 mOsm/kg (285-295); Potassium 3.5 mmol/L (3.5-5.1); Sodium 138 mmol/L (136-145)
[2020-12-15] MEDS: famotidine 20 mg/2 mL INJ IVP (05:48)
[2020-12-15] MEDS: vancomycin 1,000 MG in sodium chloride 0.9% 250 ML 250 MG IV (05:48)
[2020-12-15] MEDS: losartan 50 mg Tablet 25 MG PO (08:50)
[2020-12-15] MEDS: amlodipine 5 mg Tablet PO (08:51)
[2020-12-15] MEDS: citalopram 20 mg Tablet 40 MG PO (08:51)
[2020-12-15] MEDS: hydroCHLOROthiazide 25 mg Tablet 12.5 MG PO (08:51)
[2020-12-15] MEDS: gemfibrozil 600 mg Tablet PO (08:54)
--- NOTE | 2020-12-15 09:35 | PC.CHAP ---
Pastoral Care Encounter/Spiritual Assessment Type of Contact [] Declined patients transporter visit [] Patient/Family/Request visit [] Outpatient visit [] Follow-up visit [] Physician referral [] Code/Alert [x] Routine visit [] Staff referral [] Actively dying [] Patient sleeping [] Family support [] [] Out of room [] Palliative care [] [x] Receiving care in room [] Pre-surgical visit [] Trauma [] Long length of stay [x] ICU visit [] Other: Relational/Emotional Strength [] Patient feels connected with others/family/visitors/staff [] Distress [] Loneliness/isolation [] Abandonment Spirituality of Patient [] Person of Bea [] Attends Adventism of their Bea [] Believes in Prayer [] Reads Bible or Taoism materials [] There are Spiritual issues to be addressed Campus Chaplain Interventions [x] Prayer [] Active listening [] Non-anxious presence [] Spiritual/emotional support [] Crisis/trauma care [] Spiritual counseling [] Bereavement support [] Provided bereavement packet [] Provided Bible/devotional materials [] Provided toy/stuffed animal, coloring book to patient or family member [] Provided Communion [] Anointing/[place] [] Salvation [x] Completed spiritual assessment [] Other: Impact on Illness or Injury [] Angry [] Fearful [] Anxious [] Often cries [] Exhaustion [] Unable to work [] Unable to attend synagogue [] Unable to walk/stand [] Unable to read [] Unable to drive [] Unable to eat/drink [] Unable to sleep [] Unable to be with family [] Patient intubated [] Other: Summary Time spent with patient
[2020-12-15] MEDS: ondansetron 2 mg/ML SDV 2 mL 4 MG IVP (10:43)
--- NOTE | 2020-12-15 11:03 | PC.NURSE ---
Nurse entered room and patient had emesis bucket in her lap and stated that every morning she gets nauseous because of congestion. PRN zofran was given.
[2020-12-15] MEDS: morphine 4 mg/mL SDV 1 mL 3 MG IVP ×2 (12:29→15:59)
--- NOTE | 2020-12-15 13:58 | PM.PN ---
Subjective Subjective: Interval history: Patient had multiple loose bowel movements, denies any nausea vomiting, no fevers or chills Vitals/I&O/Wt Last Vital Signs Temp 98.6 F 12/15/20 08:00 Pulse 77 12/15/20 09:30 Resp 18 12/15/20 12:29 BP 160/88 12/15/20 09:30 Pulse Ox 96 12/15/20 12:29 12/14/20 12/15/20 12/15/20 22:59 06:59 14:59 Intake Total 1405 / 3544.583 1050 / 3544.583 120 / 120 Output Total 2 / 302 Balance 1405 / 3242.583 1048 / 3242.583 120 / 120 Physical Exam Narrative: EXAM NARRATIVE: Abdomen: Wound has good granulation tissue, no significant purulent drainage or surrounding cellulitis noted Urinary Catheter Management^: f: Cath Placed During This Visit: yes Reason for Continuing Indwelling Catheter: Accurate Measurement of Urinary Output in Critically Ill Patients Urinary Catheter Date of Insertion: 12/13/20 Urinary Catheter Time of Insertion: 18:00 Data : 12/15/20 03:30 12/15/20 03:30 Micro: Microbiology 12/13/20 18:36 Gram Stain - Final Abdomen Abscess Culture - Preliminary 12/13/20 10:49 Blood Culture - Preliminary Blood NEGATIVE TO DATE 12/13/20 10:51 Blood Culture - Preliminary Blood NEGATIVE TO DATE A&P Assessment and plan (1) Intra-abdominal abscess: 55-year-old female who presented with intra-abdominal abscess who underwent incision and drainage yesterday. Her white count is down to 7 DC home today Status: Acute Attestations Medical Necessity Statement*: Status post drainage of intra-abdominal abscess, DC home today Coding Level of Care Code Acute Gis Database Administrator for [facility] Diagnoses Intra-abdominal abscess K65.1
--- NOTE | 2020-12-15 13:59 | P.DS_ITS ---
Discharge Providers Date of Admission: 12/13/20 11:41 Date of Discharge: December 15, 2020 Attending Provider at Admission: Jalil Bell MD Attending Provider at Discharge: Jalil Bell MD Primary Care Provider: Paulo Stevens MD Diagnoses at Discharge Discharge Diagnosis (1) Intra-abdominal abscess: Status: Acute Reason for Visit Reason for Visit: AB PAIN, POST SURGERY Hospital Course Hospital Course Irma Jones is a 55 year old female who presented to the ER today with 24-hour history of abdominal pain. The pain is localized to the lower abdomen, does not radiate, worse with physical activity, no relieving factors. Patient had nausea but no vomiting. She has been having fevers and chills and had 1 episode of diarrhea yesterday. She denies any constipation. She had recently seen Dr. Mesa in the office on 12/01/2020 and was scheduled for an EGD for evaluation of GERD. She had a complicated course last year when she presented to the hospital on 04/13/2020 with abdominal pain and was diagnosed with perforated bowel, intra- abdominal abscess and and septic shock with acute kidney injury. Her postoperative course was complicated by acute respiratory failure. Patient underwent laparotomy with drainage of intra-abdominal abscess on 04/14/2020 with subsequent debridement of abdominal wall wound on 04/30/2020. Patient subsequently transferred to long-term care on 05/02/2020 due to her deconditioning. Patient underwent drainage of intra-abdominal abscess on 12/13/2020. By postop day 2 her white count is down to 7.2, she is afebrile, tolerated regular diet and having regular bowel movements. Her wound has good granulation tissue. Patient was discharged home on oral Levaquin and Flagyl since her last wound cultures have shown E. coli but the current cultures were negative. She will follow up with Dr. Mesa in wound care Physical Exam Urinary Catheter Management^: f: Cath Placed During This Visit: yes Reason for Continuing Indwelling Catheter: Accurate Measurement of Urinary Output in Critically Ill Patients Urinary Catheter Date of Insertion: 12/13/20 Urinary Catheter Time of Insertion: 18:00 Discharge Data Data Completed and Pending: Completed Studies During Hospitalization Category Date Time Status CT abdomen pelvis wo con [id number] Urge nt Cat Scan 12/13/20 09:23 Completed Pending at discharge Category Date Time Status Abscess Culture a nd Gram Stain Rout ine Lab 12/13/20 18:36 Results Anaerobic Culture Routine Lab 12/13/20 18:36 Received Basic Metabolic P gisell AM LABS Lab 12/16/20 04:00 Ordered Blood Culture Sta t Lab 12/13/20 10:51 Results Complete Blood Co unt w/Auto AM LABS Lab 12/16/20 04:00 Ordered Vancomycin Trough Timed Lab 12/15/20 16:00 Ordered Labs from last 24 hours 12/15/20 12/15/20 12/14/20 03:30 03:30 19:34 WBC 7.1 RBC 4.23 Hgb 12.1 Hct 39.3 MCV 92.9 MCH 28.6 MCHC 30.8 RDW 13.8 Plt Count 188 MPV 8.8 Neut % (Auto) 64.5 Lymph % (Auto) 23.1 Howell % (Auto) 6.6 Eos % (Auto) 3.7 Baso % (Auto) 1.0 Neut # (Auto) 4.57 Lymph # (Auto) 1.6 Howell # (Auto) 0.5 Eos # (Auto) 0.3 Baso # (Auto) 0.1 Nucleated RBC % (a uto) 0 Nucleated RBCs # 0.0 Sodium 138 139 Potassium 3.5 3.4 L Chloride 107 106 Carbon Dioxide 25 26 Anion Gap 9.5 10.4 BUN 6 7 Creatinine 0.7 0.6 GFR Calculation 87.2 L 104.2 Glucose 85 84 Calculated Osmolal ity 283 L 285 Calcium 7.5 L 7.5 L Total Bilirubin 0.6 AST 28 ALT 10 Alkaline Phosphata se 94 Total Protein 6.0 L Albumin 2.7 L Globulin 3.3 Vitals: Last Vital Signs Temp 98.6 F 12/15/20 08:00 Pulse 77 12/15/20 09:30 Resp 18 12/15/20 12:29 BP 160/88 12/15/20 09:30 Pulse Ox 96 12/15/20 12:29 Discharge Plan Discharge Patient Disposition: Home Condition: Stable Prescriptions: New hydrocodone-acetaminophen 5-325 mg tablet 1 tab PO Q6H PRN (Reason: pain) Qty: 20 RF: 0 levofloxacin 750 mg tablet 750 mg PO DAILY 7 Days RF: 0 metronidazole [Flagyl] 500 mg tablet 500 mg PO Q8H 7 Days Qty: 21 RF: 0 ondansetron HCl [Zofran] 4 mg tablet 4 mg PO Q6H PRN (Reason: nausea and vomiting) Qty: 20 RF: 0 sennosides-docusate sodium [Senna with Docusate Sodium] 8.6-50 mg tablet 1 tab-cap PO BID Qty: 30 RF: 0 Continued tizanidine 4 mg tablet 4 mg PO BID MDD 2 PRN (Reason: muscle spasticity) Qty: 60 RF: 0 gemfibrozil 600 mg tablet 600 mg PO BID@, RF: 0 alprazolam [Xanax] 1 mg tablet 1 mg PO TID PRN (Reason: anxiety) Qty: 90 RF: 3 hydroxyzine HCl 50 mg tablet 50 mg PO BID PRN (Reason: anxiety) Qty: 180 RF: 2 valsartan 80 mg tablet 80 mg PO DAILY@ RF: 0 hydrochlorothiazide 12.5 mg tablet 12.5 mg PO DAILY@ RF: 0 baclofen 10 mg tablet 10 mg PO TID PRN (Reason: Spasms) RF: 0 Zyrtec 10 mg Tablet 10 mg PO DAILY@ RF: 0 Advil Migraine 200 mg Capsule 400 mg PO PRN RF: 0 amlodipine 5 mg tablet 5 mg PO DAILY@ RF: 0 Protonix 40 mg Tablet,Delayed Release (Dr/Ec) 40 mg PO BID@, RF: 0 Celexa 40 mg tablet 40 mg PO DAILY@ RF: 0 amitriptyline 25 mg tablet 25 mg PO DAILY@23 RF: 0 Discharge Orders: Discharge Order (Routine); Ordered 12/15/20 Ordered By: Jalil Bell Referrals: [facility] [Outside] [facility], [Staff Physician] - 7-10 days (with Moshe) Patient Instructions: Opioid Safety Activity Restrictions/Additional Instructions: Diet Advance to normal diet as tolerated, increase fluid intake as much as possible. Activity Avoid strenuous activity for 2 weeks but continue with daily activities including walking as tolerated. Do not lift more than 10 pounds for 2 weeks Return to work/school You can return to work/ school whenever you feel ready as long as you don?t have to lift more than 10 pounds at work. If you have paperwork that needs to be completed for time off from work, please contact my office Driving You can resume driving once you stop using narcotic pain medications, and transition to non-opioid pain medications like Tylenol, Motrin, Aleve, etc. Medications Pain Take opioid pain medications as prescribed and transition to non-opioid pain medications like Tylenol, Motrin, Aleve etc. over the next few days. The goal of the pain medications is to make the pain bearable and not to be pain free since you recently had surgery. Resume all home medications after surgery as per the medication reconciliation list Nausea Nausea is common after surgery, take nausea medications as needed and stay on a liquid bland diet until nausea resolves. Constipation The combination of surgery, anesthesia and pain medications can result in constipation. Take stool softeners as prescribed. If you do not have a bowel movement in 3 days, please take an [id number] laxative like MiraLAX to address the constipation. Shower It is ok to shower and irrigate the wound. Do not soak in bathtub, swimming pool or hot tub for 2 weeks. Wound care If you had open wound, pack it with Kerlix gauze once daily until follow-up with wound care Do not apply antibiotics or other medications on the incision Problems with the wound You can develop some redness around the incision from bruising after surgery. If there is increasing pain, redness, tenderness around the incision with or without drainage, please contact my office to rule out an infection. Sometimes the skin at the incisions can separate, resulting in reopening of the wound. Cover the wound with antibiotic cream and sterile dressings and contact my office. Contact physician Call the office at [phone] during office hours or go the Emergency Room after hours for - ?Fever to 100.4 or greater ?Shaking chills ?Pain that increases over time ?Redness, warmth, or pus draining from incision sites ?Persistent nausea or inability to take in liquids Discharge Attestations Time Spent in Discharge Care*: less than 30 min Status at Discharge: Cognitive status at discharge: cognitively intact , Behavioral status at discharge: cooperative , Quality Metrics Clinical Quality Measures During this hospital stay, did patient experience: None Coding Level of Care Code Acute Jabarig FW LULI note Diagnoses Intra-abdominal abscess K65.1
--- NOTE | 2020-12-15 15:01 | PC.NURSE ---
Dr. Bell in room to inspect abdominal wound. Discharge orders to be put in
--- NOTE | 2020-12-15 17:23 | PC.NURSE ---
Patient was discharged from facility at 1620 via wheelchair to family members vehicle. Discharge papers and instructions were in hand.
--- NOTE | 2020-12-17 15:27 | PC.RESP ---
Smoking Cessation information sent to patient.
== END 2020-12-15 16:20 | disposition home health service (06) | DRG 853 ==
LOC: ER 11:06 → MEDSURG 12:27 → ICU 19:23
PROVIDERS: Physician Assistant; Admitting Provider Surgery; Emergency Provider Family Medicine; PCP Family Medicine; Visit Provider Surgery
PROC: 0W9G0ZX Drainage of Peritoneal Cavity, Open Approach, Diagnostic (ICD-10-PCS; principal; 2020-12-13 18:15)
DX: A41.9 Sepsis, unspecified organism (principal); K65.1 Peritoneal abscess; F33.9 Major depressive disorder, recurrent, unspecified; K21.9 Gastro-esophageal reflux disease without esophagitis; J44.9 Chronic obstructive pulmonary disease, unspecified; F41.1 Generalized anxiety disorder; M54.17 Radiculopathy, lumbosacral region; Z87.01 Personal history of pneumonia (recurrent); F17.210 Nicotine dependence, cigarettes, uncomplicated; E87.6 Hypokalemia; B96.20 Unspecified Escherichia coli [E. coli] as the cause of diseases classified elsewhere
CPT/HCPCS: 36415; 51702; 74176; 80048; 80053; 81001; 83605; 83690; 83735; 84132; 85025; 87040; 87070; 87075; 87077; 87205; 93005; 94664; 96365; 96366; 96367; 96375; 97161; 97530; 99285; J0330; J1200; J2270; J2405; J2543; J2704; J3010; J3370; J3480; J3490; J7030; J7050

== ENCOUNTER 2020-12-17 14:17 | Outpatient (CLI) | payer MEDICARE, MEDICAID, SELFPAY | END 2020-12-17 14:18 | disposition home or self-care (01) | LOC: WOUND 14:18 | PROVIDERS: PCP Family Medicine; Visit Provider Surgery | DX: L98.492 Non-pressure chronic ulcer of skin of other sites with fat layer exposed (principal) | CPT/HCPCS: 11043; 99212 ==

== ENCOUNTER 2020-12-24 14:40 | Outpatient (CLI) | payer MEDICARE, MEDICAID, SELFPAY | END 2020-12-24 14:41 | disposition home or self-care (01) | LOC: WOUND 14:43 | PROVIDERS: PCP Family Medicine; Visit Provider Surgery | DX: T81.89XA Other complications of procedures, not elsewhere classified, initial encounter (principal) | CPT/HCPCS: 11043; 97605 ==

== ENCOUNTER 2020-12-31 09:13 | Outpatient (CLI) | payer MEDICARE, MEDICAID, SELFPAY | END 2020-12-31 09:14 | disposition home or self-care (01) | LOC: WOUND 09:14 | PROVIDERS: PCP Family Medicine; Visit Provider Surgery | DX: T81.89XA Other complications of procedures, not elsewhere classified, initial encounter (principal) | CPT/HCPCS: 11043 ==

== ENCOUNTER 2021-01-07 10:26 | Outpatient (CLI) | payer MEDICARE, MEDICAID, SELFPAY | END 2021-01-07 10:27 | disposition home or self-care (01) | LOC: WOUND 10:28 | PROVIDERS: PCP Family Medicine; Visit Provider Nurse Practitioner Family | DX: T81.89XA Other complications of procedures, not elsewhere classified, initial encounter (principal) | CPT/HCPCS: 11042 ==

== ENCOUNTER 2021-01-14 08:54 | Outpatient (CLI) | payer MEDICARE, MEDICAID, SELFPAY | END 2021-01-14 08:55 | disposition home or self-care (01) | LOC: WOUND 08:55 | PROVIDERS: PCP Family Medicine; Visit Provider Thoracic Surgery (Cardiothoracic Vascular Surgery) | DX: T81.89XA Other complications of procedures, not elsewhere classified, initial encounter (principal); Y83.8 Other surgical procedures as the cause of abnormal reaction of the patient, or of later complication, without mention of misadventure at the time of the procedure | CPT/HCPCS: 11042 ==

== ENCOUNTER 2021-01-21 13:01 | Outpatient (CLI) | payer MEDICARE, MEDICAID, SELFPAY | END 2021-01-21 13:02 | disposition home or self-care (01) | LOC: WOUND 13:02 | PROVIDERS: PCP Family Medicine; Visit Provider Surgery | DX: T81.89XA Other complications of procedures, not elsewhere classified, initial encounter (principal); Y83.8 Other surgical procedures as the cause of abnormal reaction of the patient, or of later complication, without mention of misadventure at the time of the procedure | CPT/HCPCS: 11043 ==

== ENCOUNTER 2021-01-28 13:03 | Outpatient (CLI) | payer MEDICARE, MEDICAID, SELFPAY | END 2021-01-28 13:04 | disposition home or self-care (01) | LOC: WOUND 13:04 | PROVIDERS: PCP Family Medicine; Visit Provider Surgery | DX: T81.89XA Other complications of procedures, not elsewhere classified, initial encounter (principal); Y83.8 Other surgical procedures as the cause of abnormal reaction of the patient, or of later complication, without mention of misadventure at the time of the procedure | CPT/HCPCS: 11042 ==

== ENCOUNTER → 2021-02-02 07:34 | Outpatient (BNVA) | payer MEDICARE, MEDICAID, SELFPAY | PROVIDERS: PCP Family Medicine; Visit Provider Nurse Practitioner Psychiatric/Mental Health | DX: F33.2 Major depressive disorder, recurrent severe without psychotic features (principal); F41.1 Generalized anxiety disorder; F17.210 Nicotine dependence, cigarettes, uncomplicated | CPT/HCPCS: 99214 ==

== ENCOUNTER 2021-02-04 11:28 | Inpatient (IN) | payer MEDICARE, MEDICAID, SELFPAY ==
[2021-02-04 11:53] VITALS: BP 91/55; PULSE 108; RESP 18; TEMP 36.9; O2SAT 95; BMI 33.2
--- NOTE | 2021-02-04 12:41 | XR_ITS ---
WS: [id number] Portable AP upright chest, 02/04/2021 Clinical Data: dypsnea Comparison: Orbital chest, 04/26/2020. Findings: No nodules, masses or effusions are seen. The heart is normal. The pulmonary vascularity is not increased. No pneumonia or pneumothorax is seen. XR/XR chest 1V portable [id number] Impression: Negative chest.
--- NOTE | 2021-02-04 12:43 | CT_ITS ---
WS: [id number] CT ABDOMEN AND PELVIS WITH CONTRAST HISTORY: Abdominal and groin pain for 2 weeks with diarrhea. TECHNIQUE: Imaging performed of the abdomen and pelvis with IV contrast. Single phase imaging of the abdomen. Coronal and sagittal reformats are submitted. All CT scans at [facility] use at least one of these dose optimization techniques: automated exposure control; mA and/or kV adjustment per patient size (includes targeted exams where dose is matched to clinical indication); or iterativ e reconstruction. IV CONTRAST: Visipaque 320; 95 mL IV. Oral contrast: Yes. DLP: 1672.01 mGy.cm COMPARISON: 12/13/2020 Lower thorax: Lung bases are clear. Mild cardiomegaly. No hiatal hernia. Liver/biliary system: Mildly enlarged liver with mild heterogeneity but no change. No bile duct dilat ation. Gallbladder: Status post cholecystectomy. Pancreas: Normal size pancreas and pancreatic duct. No adjacent inflammation. Spleen: Normal size spleen. No mass or infarct. Adrenal glands: Normal. Right kidney: Normal size kidney. Nonobstructing calcifications centrally. Left kidney: Mild perinephric stranding. No obstruction. Aorta: Moderate atherosclerosis with no aneurysm. Heavy calcified plaque at the bifurcation. There is probably significant stenosis at the bifurcation extending into the proximal iliac arteries, LEFT gr eater than RIGHT. Lymphadenopathy: None. Free fluid: None. GI tract: Mild dilatation of central small bowel loops within the pelvis. There is thickening of the wall and tethering of loops of bowel. This tethering is in the region of the prior abdominal laparoto my site. The previously described fluid collection along the incision site is no longer present but t here is continued wall thickening which extends to the omentum to involve the adjacent small bowel lo ops. There are a few loops of small bowel which are slightly dilated. At this time there is no high-g rade obstruction. There is a additional thickening of the sigmoid colon from prior episodes of diverticulitis. There is a small amount of edema wall thickening which may represent early acute diverticulitis. These change s are more obvious and progressed as compared to 11/08/2020. Abdominal wall: Soft tissue thickening along the midline of the abdominal wall predominantly below th e umbilicus. There is no residual fluid collection as seen on 12/13/2020. There is contiguous soft tis sandeep extension along the abdominal wall through the omentum to the small bowel. Pelvis: No free fluid in the pelvis. Urinary bladder is not distended. Bones: Unremarkable. CT/CT abdomen pelvis w con* [id number] IMPRESSION: 1. No residual fluid collection along the infraumbilical abdominal wall surgic al incision. 2. There is extensive soft tissue thickening along the infraumbilical midline incision site. This soft tissue thickening extends through the anterior wall of the pelvis into the omentum to involve the small bowel. There are a few loops of small bowel with wall thickening and increase fluid suggesting a mild focal obstruction. At this time there is no high-grade obstruction. 3. Mild wall thickening and very small amount of edema in the sigmoid colon. E brittny changes of developing diverticulosis on chronic diverticulitis should be c onsidered. 4. No free fluid. 5. Extensive atherosclerosis aorta. Suspect a significant stenosis involving t he proximal iliac arteries bilaterally.
--- NOTE | 2021-02-04 12:51 | ED_ITS ---
HPI - Wound/Laceration General: Chief Complaint: Wound/Laceration Stated Complaint: abdominal pain Time Seen by Provider: 02/04/21 12:27 History of Present Illness: HPI narrative: 55-year-old female sent to the emergency room from wound care clinic. She has an abdominal wall dehiscence from previous surgery that they have been managing their to close by wound VAC it still has some packing in place but now it is heavy foul-smelling copious purulent drainage. She has not been feeling well she has had normal bowel movements up until yesterday then began having some diarrhea patient is also reporting reporting increasing abdominal pain. Onset (ago): hour(s) Location: abdomen Place: home Associated symptoms: Reports nausea and pain; Denies chills, fever(s), foreign body sensation, inability to move, numbness, syncope or vomiting Review of Systems Const: Denies: fever(s) or chills ENMT: Denies: throat pain, ear or mastoid pain, nasal discharge or nasal congestion Card: Denies: syncope Resp: Denies: dyspnea, productive cough or non-productive cough GI: Reports: nausea; Denies: vomiting : Denies: flank pain, difficulty voiding, dysuria, urinary frequency or urinary urgency Skin/Breast: Denies: rash or pruritus PFSH ED PFSH: Medical History Acute kidney injury Bowel perforation COPD (chronic obstructive pulmonary disease) Generalized anxiety disorder 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, recurrent severe without psychotic features Peritonitis (acute) generalized Pneumonia Rhabdomyolysis Septic shock Shock liver Surgical History H/O drainage of abscess (~12/13/20) Intra-abdominal H/O exploratory laparotomy drainage of intra abdominal abscess H/O of hysterectomy with bilateral oophorectomy Family History Mother CHF (congestive heart failure) Social History Smoking and tobacco status: current every day smoker cigarettes Packs smoked per day: 1 Alcohol intake: current Alcohol intake frequency: few times a month Household members: family Marital status: Current occupational status: unemployed History of recent travel: No Physical Exam Const: COMMON NORMALS: no acute distress GENERAL APPEARANCE: cooperative and comfortable ORIENTATION/CONSCIOUSNESS: Yes awake, Yes oriented to person, Yes oriented to place and Yes oriented to time HENMT: COMMON NORMALS: normocephalic, atraumatic, hearing grossly normal bi laterally and external ears normal HEAD & SCALP: normocephalic and atraumatic EXTERNAL EAR: Yes external ears normal Neck/C-Spine: COMMON NORMALS: no JVD Resp: COMMON NORMALS: normal respiratory effort, No retractions, No use of accessory muscles and clear to auscultation bilaterally AUSCULTATION: clear to auscultation bilaterally Cardio: COMMON NORMALS: no JVD, regular rate, regular rhythm and No murmurs present (Cardio) RATE: regular rate RHYTHM: regular rhythm GI: COMMON NORMALS: No hepatosplenomegaly present AUSCULTATION: Yes normoactive bowel sounds PALPATION: Yes Tenderness to palpation present (GI), No Guarding due to palpation present (GI) and Yes No hepatosplenomegaly present OTHER: Midline incision with dehisced centrally. There is purulent drainage on the bandage with a packing present. No evidence palpably of abscess. Extremity: COMMON NORMALS: normal to inspection, capillary refill normal, no clubbing, cyanosis or edema, no calf tenderness and no pedal edema Neuro: SENSORIUM/ORIENTATION: Yes oriented to person, Yes oriented to place and Yes oriented to time Skin: COMMON NORMALS: no rashes or lesions noted GENERAL SKIN EXAM: no rashes or lesions noted Course Vital Signs: Vital signs: Vital Signs Temperature 99.1 F 02/05/21 12:00 Pulse Rate 86 02/05/21 12:00 Respiratory Rate 17 02/05/21 12:00 Blood Pressure 114/69 02/05/21 12:00 Pulse Oximetry 91 02/05/21 12:00 MDM - Wound/Laceration MDM Narrative: Medical decision making narrative: No abscess identified on CT organ to go ahead and admit started on IV antibiotics Orders written. discussed with hospitalist. She is also hypokalemic will address that as well. Lab Data: Labs: Lab Results 02/04/21 02/04/21 02/04/21 Range/Units 12:35 12:35 12:35 WBC 21.9 H (4.0-10.0) 10^3/ uL RBC 4.57 (4.1-5.3) 10^6/u L Hgb 13.5 (11.5-15.3) g/dL Hct 40.4 (37.0-47.0) % MCV 88.4 (81-99) fL MCH 29.5 (28.0-34.0) pg MCHC 33.4 (30.0-36.0) g/dL RDW 15.1 (12.1-15.1) % Plt Count 208 (130-400) 10^3/c mm MPV 9.3 (7.4-10.4) fL Neut % (Auto) 86.8 % Lymph % (Auto) 6.3 % Williamson % (Auto) 5.7 % Eos % (Auto) 0.2 % Baso % (Auto) 0.3 % Neut # (Auto) 18.99 H (1.8-7.7) 10^3/u L Lymph # (Auto) 1.4 (0.8-4.8) 10^3/u L Williamson # (Auto) 1.3 H (0.2-0.9) 10^3/u L Eos # (Auto) 0.1 (0.0-0.8) 10^3/u L Baso # (Auto) 0.1 (0.0-0.1) 10^3/u L Nucleated RBC % (a uto) 0 % Nucleated RBCs # 0.0 /100WBC Sodium 137 (136-145) mmol/L Potassium 2.7 L* (3.5-5.1) mmol/L Chloride 96 L (98-107) mmol/L Carbon Dioxide 27 (22-29) mmol/L Anion Gap 16.7 (5-19) BUN 15 (6-20) mg/dL Creatinine 1.1 H (0.5-0.9) mg/dL GFR Calculation 51.8 L (90-130) mL/min Glucose 96 (65-115) mg/dL Calculated Osmolal ity 285 (285-295) mOsm/k g Lactic Acid 1.9 (0.5-2.2) mmol/L Calcium 8.6 (8.5-10.5) mg/dL Total Bilirubin 0.8 (0.15-1.2) mg/dL AST 15 (0-32) U/L ALT 7 (0-33) U/L Alkaline Phosphata se 140 H (35-105) IU/L Total Protein 6.9 (6.6-8.7) g/dL Albumin 3.9 (3.5-5.2) g/dL Globulin 3.0 (1.3-4.6) g/dL Procalcitonin (0-0.5) ng/mL 02/04/21 Range/Units 12:35 WBC (4.0-10.0) 10^3/ uL RBC (4.1-5.3) 10^6/u L Hgb (11.5-15.3) g/dL Hct (37.0-47.0) % MCV (81-99) fL MCH (28.0-34.0) pg MCHC (30.0-36.0) g/dL RDW (12.1-15.1) % Plt Count (130-400) 10^3/c mm MPV (7.4-10.4) fL Neut % (Auto) % Lymph % (Auto) % Williamson % (Auto) % Eos % (Auto) % Baso % (Auto) % Neut # (Auto) (1.8-7.7) 10^3/u L Lymph # (Auto) (0.8-4.8) 10^3/u L Williamson # (Auto) (0.2-0.9) 10^3/u L Eos # (Auto) (0.0-0.8) 10^3/u L Baso # (Auto) (0.0-0.1) 10^3/u L Nucleated RBC % (a uto) % Nucleated RBCs # /100WBC Sodium (136-145) mmol/L Potassium (3.5-5.1) mmol/L Chloride (98-107) mmol/L Carbon Dioxide (22-29) mmol/L Anion Gap (5-19) BUN (6-20) mg/dL Creatinine (0.5-0.9) mg/dL GFR Calculation (90-130) mL/min Glucose (65-115) mg/dL Calculated Osmolal ity (285-295) mOsm/k g Lactic Acid (0.5-2.2) mmol/L Calcium (8.5-10.5) mg/dL Total Bilirubin (0.15-1.2) mg/dL AST (0-32) U/L ALT (0-33) U/L Alkaline Phosphata se (35-105) IU/L Total Protein (6.6-8.7) g/dL Albumin (3.5-5.2) g/dL Globulin (1.3-4.6) g/dL Procalcitonin 5.45 H (0-0.5) ng/mL Discharge Plan Discharge Patient Disposition: Admitted As Inpatient Admit Provider: Krish Rodegrs Clinical Impression: Abdominal wall abscess at site of surgical wound, Hypokalemia Condition: Stable Coding Level of Care Code ED Public Health Policy Analyst for Chg Fwd Exam Comprehensive
[2021-02-04 12:54] LABS: Basophils # 0.1 10^3/uL (0.0-0.1); Basophils % 0.3 %; Eosinophils # 0.1 10^3/uL (0.0-0.8); Eosinophils % 0.2 %; Hematocrit 40.4 % (37.0-47.0); Hemoglobin 13.5 g/dL (11.5-15.3); Lymphocytes # 1.4 10^3/uL (0.8-4.8); Lymphocytes % 6.3 %; Mean Corpuscular HGB Conc 33.4 g/dL (30.0-36.0); Mean Corpuscular Hemoglobin 29.5 pg (28.0-34.0); Mean Corpuscular Volume 88.4 fL (81-99); Mean Platelet Volume 9.3 fL (7.4-10.4); Monocytes # 1.3 10^3/uL (0.2-0.9); Monocytes % 5.7 %; Neutrophils # 18.99 10^3/uL (1.8-7.7); Neutrophils % 86.8 %; Nucleated Red Blood Cells % 0 %; Platelet Count 208 10^3/cmm (130-400); Red Blood Count 4.57 10^6/uL (4.1-5.3); Red Cell Distribution Width 15.1 % (12.1-15.1); White Blood Count 21.9 10^3/uL (4.0-10.0)
--- NOTE | 2021-02-04 12:55 | PC.NURSE ---
New dressing applied to abd wound; used an abd pad and tape; pt tolerated well.
[2021-02-04 13:01] VITALS: BP 94/53
[2021-02-04 13:05] LABS: Lactic Sepsis W/Reflex 1.9 mmol/L (0.5-2.2)
[2021-02-04 13:06] LABS: Alanine Aminotransferase 7 U/L (0-33); Albumin Level 3.9 g/dL (3.5-5.2); Alkaline Phosphatase 140 IU/L (35-105); Anion Gap 16.7 (5-19); Aspartate Amino Transferase 15 U/L (0-32); Blood Urea Nitrogen 15 mg/dL (6-20); Calcium 8.6 mg/dL (8.5-10.5); Carbon Dioxide 27 mmol/L (22-29); Chloride 96 mmol/L (98-107); Glomerular Filtration Rate 51.8 mL/min (90-130); Glucose 96 mg/dL (65-115); Osmolality Calculated 285 mOsm/kg (285-295); Sodium 137 mmol/L (136-145); Total Bilirubin 0.8 mg/dL (0.15-1.2); Total Protein 6.9 g/dL (6.6-8.7)
[2021-02-04] MEDS: hydrocortisone 100 mg/2 mL SDV IVP (13:06)
[2021-02-04] MEDS: diphenhydrAMINE 50 mg/mL SDV 1mL IVP (13:07)
[2021-02-04 13:10] LABS: Creatinine Clr Calc Pharmacy 53.6661; Potassium 2.7 mmol/L (3.5-5.1)
[2021-02-04] MEDS: iodixanol 320 mg/mL 100mL Btl IV (13:29)
[2021-02-04] MEDS: vancomycin 1,000 MG in sodium chloride 0.9% 250 ML 250 MG IV (13:38)
[2021-02-04] MEDS: sodium chloride 0.9% 2,313.33 ML 2313.33 ML IV (14:17)
[2021-02-04] MEDS: lidocaine 1% 5 ML in potassium chloride premix 100 ML 25 ML IV (14:20)
[2021-02-04] MEDS: potassium chloride oral liq 20 mEq/15 mL UDC 40 MEQ PO (14:24)
[2021-02-04 14:59] VITALS: BP 92/63; PULSE 71; RESP 18; O2SAT 94
[2021-02-04 16:00] VITALS: BP 112/73; PULSE 81; RESP 18; TEMP 36.4; O2SAT 97
--- NOTE | 2021-02-04 16:13 | PM.HP ---
Providers/Chief Complaint Admitting Physician: Krish Rodgers MD Primary Care Provider: Paulo Stevens MD Chief Complaint: abdominal pain History of Present Illness Irma Jones is a 55 year old female with PMH of COPD, Bowel Perforation 04/13/2020 with complicated Prolonged course since then as recent as 11/2020 when she underwent underwent drainage of intra-abdominal abscess followed by discharge on oral abxs and to follow with wound care clinic as outpatient. She was sent today from the wound care clinic as she was having foul smelling pus discharge from the abdominal wound.According to the patient pus drainage started this Sunday followed by mild generalized abdominal pain.She deny any fever,nausea,vomiting. Upon arrival in the ER she was worked up for above mention complain. Imaging Studies: C.T abdomen and Pelvis with contrast : No residual fluid collection along the infraumbilical abdominal wall surgical incision.extensive soft tissue thickening along the infraumbilical midline incision site. This soft tissue thickening extends through the anterior wall of the pelvis into the omentum to involve the small bowel. Labs : WBC : 30825, Lactic acid :1.7 , Procalcitonin: 5.45 K : 2.7 , BUN/SCR: 15/1.1 , Review of Systems Const: Denies: body aches or change in appetite Card: Denies: palpitations, edema, swelling of feet/ankles, dyspnea on exertion, orthopnea or leg pain with exertion Resp: Denies: dyspnea, productive cough, wheezing or pain on inspiration GI: Denies: diarrhea or constipation : Denies: flank pain Musc: Denies: back pain, extremity pain or extremity swelling Neuro: Denies: headache(s), difficulty walking or confusion Medications/Allergies Home Medications Medication Instructions Recorded Confirmed Last Taken Type valsartan 80 mg tablet 80 mg PO DAILY@09/17/19 02/04/21 02/04/21 History baclofen 10 mg tablet 10 mg PO TID PRN 11/25/19 02/04/21 12/12/20 History gemfibrozil 600 mg tablet 600 mg PO BID@06/10/20 02/04/21 02/04/21 History amlodipine 5 mg PO DAILY@12/13/20 02/04/21 02/04/21 History cetirizine [Zyrtec] 10 mg PO DAILY@12/13/20 02/04/21 02/03/21 History ibuprofen [Advil Migraine] 400 mg PO PRN 12/13/20 02/04/21 12/12/20 History pantoprazole [Protonix] 40 mg PO BID@,12/13/20 02/04/21 02/04/21 History ondansetron HCl [Zofran] 4 mg PO Q6H PRN #20 tab 12/15/20 02/04/21 Unknown Rx sennosides-docusate sodium [Senna 1 tab-cap PO BID #30 tab 12/15/20 02/04/21 Unknown Rx with Docusate Sodium] alprazolam 1 mg tablet 1 mg PO TID PRN #90 tab 01/31/21 02/04/21 Unknown Rx atorvastatin 10 mg tablet 10 mg PO DAILY 02/01/21 02/04/21 02/03/21 History amitriptyline 25 mg PO BEDTIME 02/04/21 02/04/21 02/03/21 History citalopram [Celexa] 40 mg PO DAILY 02/04/21 02/04/21 02/04/21 History hydrochlorothiazide 50 mg PO DAILY 02/04/21 02/04/21 02/04/21 History levofloxacin 500 mg PO DAILY 02/04/21 02/04/21 02/03/21 History Allergies Allergy/AdvReac Type Severity Reaction Status Date / Time amoxicillin Allergy Severe ALGY-Rash Verified 02/04/21 13:59 codeine Allergy Unknown rash, Verified 02/04/21 13:59 itching Penicillins Allergy Unknown rash, Verified 02/04/21 13:59 itching Sulfa (Sulfonamide Allergy Unknown rash, Verified 02/04/21 13:59 Antibiotics) itching Iodinated Contrast Media Allergy Unknown Verified 02/04/21 13:59 PFSH Acute PFSH: Medical History Acute kidney injury Bowel perforation COPD (chronic obstructive pulmonary disease) Generalized anxiety disorder 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, recurrent severe without psychotic features Peritonitis (acute) generalized Pneumonia Rhabdomyolysis Septic shock Shock liver Surgical History H/O drainage of abscess (~12/13/20) Intra-abdominal H/O exploratory laparotomy drainage of intra abdominal abscess H/O of hysterectomy with bilateral oophorectomy Family History Mother CHF (congestive heart failure) Social History Smoking and tobacco status: current every day smoker cigarettes Packs smoked per day: 1 Alcohol intake: current Alcohol intake frequency: few times a month Household members: family Marital status: Current occupational status: unemployed History of recent travel: No Vitals/I&O/Wt Last Vital Signs Temp 98.4 F 02/04/21 11:53 Pulse 71 02/04/21 14:59 Resp 18 02/04/21 14:59 BP 92/63 02/04/21 14:59 Pulse Ox 94 02/04/21 14:59 02/04/21 02/04/21 02/04/21 06:59 14:59 22:59 Intake Total 250 / 250 2313.33 / 2563.33 Balance 250 / 250 2313.33 / 2563.33 Weight last 48 hrs Weight 77.111 kg Physical Exam Const: COMMON NORMALS: patient oriented x3 HENMT: COMMON NORMALS: normocephalic and atraumatic HEAD & SCALP: normocephalic and atraumatic EXTERNAL EAR: Yes external ears normal Eye: COMMON NORMALS: no scleral icterus GENERAL EYE: appearance normal, both eyes and all related structures Chest: CHEST: Yes Symmetrical chest wall rise Resp: COMMON NORMALS: clear to auscultation bilaterally EFFORT & INSPECTION: Yes symmetric chest movement AUSCULTATION: clear to auscultation bilaterally Cardio: COMMON NORMALS: regular rate, regular rhythm, S1 normal heart sound present, S2 normal heart sound present, No gallops present (Cardio), No murmurs present (Cardio), No rub (Cardio) and Peripheral pulses 2+ throughout RATE: regular rate RHYTHM: regular rhythm HEART SOUNDS: S1 normal heart sound present and S2 normal heart sound present PERIPHERAL PULSES: Peripheral pulses 2+ throughout GI: COMMON NORMALS: Soft to palpation and non-tender AUSCULTATION: Yes normoactive bowel sounds RECTAL EXAM: deferred OTHER: infraumbilical abdominal wall surgical incision with clear pus drainage from the packing site. Extremity: COMMON NORMALS: no clubbing, cyanosis or edema and no pedal edema Neuro: COMMON NORMALS: patient oriented x3 Data : 02/04/21 12:35 02/04/21 12:35 Micro: Microbiology 02/04/21 13:20 Blood Culture - Preliminary Blood SPECIMEN COLLECTED 02/04/21 13:05 Blood Culture - Preliminary Blood SPECIMEN COLLECTED A&P Assessment and plan (1) Sepsis: Sepsis 2/2 to Abdominal wall Abscess. Leukocytosis, hypotension,elevated Procalcitonin,and source. Blood Culture: Wound Culture :Will help r/o resistant organism. Vancomycin Imipenam I.V Hydration Surgery Consult Status: Acute (2) Abdominal wall abscess at site of surgical wound: Wound dressing with Wet to Dry Kerlix BID followed by ABDs Status: Acute (3) COPD (chronic obstructive pulmonary disease): Status: Acute Qualifiers: COPD type: unspecified COPD Qualified Code(s): J44.9 - Chronic obstructive pulmonary disease, unspecified (4) Status post exploratory laparotomy: Status: Acute (5) Hypokalemia: Status: Acute Additional A&P Information Code Status :Full code DVT PPX:SCDS Attestations Medical Necessity Statement*: Patient needs to be in hospital for the management of sepsis.Anticipate los greater then 2 midnights Coding Level of Care Code 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
[2021-02-04 17:06] LABS: Procalcitonin 5.45 ng/mL (0-0.5)
[2021-02-04 17:33] LABS: Lactic Sepsis W/Reflex 1.1 mmol/L (0.5-2.2)
[2021-02-04] MEDS: sodium chlor 0.9% + KCl 20 mEq 20 MEQ/1,000 ML BAG 75 MEQ IV (18:11)
[2021-02-04] MEDS: gemfibrozil 600 mg Tablet PO (18:17)
[2021-02-04] MEDS: enoxaparin 40 mg/0.4 mL Syringe SUBCUT (18:18)
[2021-02-04 20:00] VITALS: BP 101/62; PULSE 76; RESP 17; TEMP 36.6; O2SAT 92
[2021-02-04] MEDS: amitriptyline 25 mg Tablet PO (20:28)
[2021-02-04 22:00] VITALS: PULSE 81
[2021-02-04] MEDS: pantoprazole DR 40 mg Tablet PO (23:48)
[2021-02-05] VITALS (8 sets, daily range): BP systolic 106–122; BP diastolic 57–73; PULSE 75–90; RESP 15–20; TEMP 36.6–37.3; O2SAT 90–95
[2021-02-05 06:13] LABS: Basophils % 0.4 %; Eosinophils # 0.2 10^3/uL (0.0-0.8); Eosinophils % 1.5 %; Hematocrit 35.7 % (37.0-47.0); Hemoglobin 11.8 g/dL (11.5-15.3); Mean Corpuscular HGB Conc 33.1 g/dL (30.0-36.0); Mean Corpuscular Hemoglobin 29.5 pg (28.0-34.0); Mean Corpuscular Volume 89.3 fL (81-99); Monocytes # 0.4 10^3/uL (0.2-0.9); Monocytes % 3.8 %; Neutrophils # 9.69 10^3/uL (1.8-7.7); Neutrophils % 84.8 %; Nucleated Red Blood Cells % 0 %; Platelet Count 156 10^3/cmm (130-400); Red Cell Distribution Width 14.9 % (12.1-15.1); White Blood Count 11.4 10^3/uL (4.0-10.0)
[2021-02-05] MEDS: vancomycin 1,000 MG in sodium chloride 0.9% 250 ML 250 MG IV (06:26)
[2021-02-05] MEDS: sodium chlor 0.9% + KCl 20 mEq 20 MEQ/1,000 ML BAG 75 MEQ IV ×2 (06:29→21:44)
[2021-02-05 06:48] LABS: Anion Gap 13.7 (5-19); Blood Urea Nitrogen 15 mg/dL (6-20); Calcium 8.2 mg/dL (8.5-10.5); Carbon Dioxide 25 mmol/L (22-29); Chloride 101 mmol/L (98-107); Glomerular Filtration Rate 65.2 mL/min (90-130); Glucose 90 mg/dL (65-115); Osmolality Calculated 284 mOsm/kg (285-295); Sodium 137 mmol/L (136-145)
[2021-02-05 07:09] LABS: Potassium 2.7 mmol/L (3.5-5.1)
[2021-02-05] MEDS: citalopram 20 mg Tablet 40 MG PO (08:03)
[2021-02-05] MEDS: atorvastatin 40 mg Tablet 20 MG PO (08:03)
[2021-02-05] MEDS: baclofen 10 mg Tablet PO ×2 (08:03→14:29)
[2021-02-05] MEDS: pantoprazole DR 40 mg Tablet PO (08:04)
[2021-02-05] MEDS: gemfibrozil 600 mg Tablet PO ×2 (08:04→17:25)
[2021-02-05] MEDS: lidocaine 1% 5 ML in potassium chloride premix 100 ML 25 ML IV (09:18)
[2021-02-05] MEDS: diphenhydrAMINE 25 mg Capsule PO (10:52)
--- NOTE | 2021-02-05 12:13 | P.PN_ITS ---
Subjective Subjective: Interval history: No acute events overnight, overall she is doing better. WBC count is trending down.Has remained afebrile. Other vitals and labs have been reviewed. Vitals/I&O/Wt Last Vital Signs Temp 99 F 02/05/21 08:00 Pulse 90 02/05/21 08:00 Resp 15 02/05/21 08:00 BP 106/63 02/05/21 08:00 Pulse Ox 90 02/05/21 08:00 02/04/21 02/05/21 02/05/21 22:59 06:59 14:59 Intake Total 2878.33 / 3128.33 1502.5 / 4630.83 550 / 550 Balance 2878.33 / 3128.33 1502.5 / 4630.83 550 / 550 Weight last 48 hrs Weight 77.111 kg Physical Exam Const: COMMON NORMALS: patient oriented x3 HENMT: COMMON NORMALS: normocephalic, atraumatic and external ears normal HEAD & SCALP: normocephalic and atraumatic EXTERNAL EAR: Yes external ears normal Eye: COMMON NORMALS: no scleral icterus GENERAL EYE: appearance normal, both eyes and all related structures Chest: CHEST: Yes Symmetrical chest wall rise Resp: COMMON NORMALS: clear to auscultation bilaterally EFFORT & INSPECTION: Yes symmetric chest movement AUSCULTATION: clear to auscultation bilaterally Cardio: COMMON NORMALS: regular rate, regular rhythm, S1 normal heart sound present, S2 normal heart sound present, No gallops present (Cardio), No murmurs present (Cardio), No rub (Cardio) and Peripheral pulses 2+ throughout RATE: regular rate RHYTHM: regular rhythm HEART SOUNDS: S1 normal heart sound present and S2 normal heart sound present PERIPHERAL PULSES: Peripheral pulses 2+ throughout GI: COMMON NORMALS: Soft to palpation and non-tender AUSCULTATION: Yes normoactive bowel sounds PALPATION: Yes Soft to palpation RECTAL EXAM: de ferred OTHER: infraumbilical abdominal wall surgical incision with clear pus drainage from the packing site. Extremity: COMMON NORMALS: no clubbing, cyanosis or edema and no pedal edema Neuro: COMMON NORMALS: patient oriented x3 Data : 02/05/21 05:47 02/05/21 05:47 Micro: Microbiology 02/04/21 13:20 Blood Culture - Preliminary Blood SPECIMEN COLLECTED 02/04/21 13:05 Blood Culture - Preliminary Blood SPECIMEN COLLECTED A&P Assessment and plan (1) Sepsis: Sepsis 2/2 to Abdominal wall Abscess. Leukocytosis, hypotension,elevated Procalcitonin,and source. Blood Culture:NTD Wound Culture :Will help r/o resistant organism. Vancomycin Imipenam I.V Hydration Surgery Consult Status: Acute (2) Abdominal wall abscess at site of surgical wound: Wound dressing with Wet to Dry Kerlix BID followed by ABDs Status: Acute (3) COPD (chronic obstructive pulmonary disease): Status: Acute Qualifiers: COPD type: unspecified COPD Qualified Code(s): J44.9 - Chronic obstructive pulmonary disease, unspecified (4) Status post exploratory laparotomy: Status: Acute (5) Hypokalemia: Status: Acute Additional A&P Information Code Status :Full code DVT PPX:SCDS Attestations Medical Necessity Statement*: Patient needs to be in hospital for management, sepsis. 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
--- NOTE | 2021-02-05 14:08 | P.CONIM_ITS ---
Providers/Reason For Consult Consulting Physician/Specialty*: General Surgery Dr. Bell Reason for Consult*: Abdominal wall cellulitis Attending Physician: Krish Rodgers MD Primary Care Provider: Paulo Stevens MD History of Present Illness History of Present Illness Irma Jones is a 55 year old female who had previously been admitted to the last year with perforated diverticulitis for which she underwent laparotomy and drainage. She subsequently presented with an intra-abdominal abscess for which she underwent drainage on 12/03/2020. Since the patient had been followed up in wound care but yesterday patient was noted to have significant purulent drainage from the wound was therefore admitted to the hospital for IV antibiotics Review of Systems General: Reports: 10 or more systems reviewed and unremarkable except in HPI and below Meds/Allergies Home Medications and Allergies Home Medications Medication Instructions Recorded Confirmed Last Taken Type valsartan 80 mg tablet 80 mg PO DAILY@09/17/19 02/04/21 02/04/21 History baclofen 10 mg tablet 10 mg PO TID PRN 11/25/19 02/04/21 12/12/20 History gemfibrozil 600 mg tablet 600 mg PO BID@06/10/20 02/04/21 02/04/21 History amlodipine 5 mg PO DAILY@12/13/20 02/04/21 02/04/21 History cetirizine [Zyrtec] 10 mg PO DAILY@12/13/20 02/04/21 02/03/21 History ibuprofen [Advil Migraine] 400 mg PO PRN 12/13/20 02/04/21 12/12/20 History pantoprazole [Protonix] 40 mg PO BID@12/13/20 02/04/21 02/04/21 History ondansetron HCl [Zofran] 4 mg PO Q6H PRN #20 tab 12/15/20 02/04/21 Unknown Rx sennosides-docusate sodium [Senna 1 tab-cap PO BID #30 tab 12/15/20 02/04/21 Unknown Rx with Docusate Sodium] alprazolam 1 mg tablet 1 mg PO TID PRN #90 tab 01/31/21 02/04/21 Unknown Rx atorvastatin 10 mg tablet 10 mg PO DAILY 02/01/21 02/04/21 02/03/21 History amitriptyline 25 mg PO BEDTIME 02/04/21 02/04/21 02/03/21 History citalopram [Celexa] 40 mg PO DAILY 02/04/21 02/04/21 02/04/21 History hydrochlorothiazide 50 mg PO DAILY 02/04/21 02/04/21 02/04/21 History levofloxacin 500 mg PO DAILY 02/04/21 02/04/21 02/03/21 History Allergies Allergy/AdvReac Type Severity Reaction Status Date / Time amoxicillin Allergy Severe ALGY-Rash Verified 02/04/21 13:59 codeine Allergy Unknown rash, Verified 02/04/21 13:59 itching Penicillins Allergy Unknown rash, Verified 02/04/21 13:59 itching Sulfa (Sulfonamide Allergy Unknown rash, Verified 02/04/21 13:59 Antibiotics) itching Iodinated Contrast Media Allergy Unknown Verified 02/04/21 13:59 Current Medications Current Medications Generic Name Dose Route Start Last Admin Trade Name Freq PRN Reason Stop Dose Admin Alprazolam 1 mg 02/04/21 16:05 02/05/21 08:07 Alprazolam 1 Mg Tablet PO 1 mg TID PRN Administration anxiety Amitriptyline HCl 25 mg 02/04/21 21:00 02/04/21 20:28 Amitriptyline 25 Mg Tablet PO 25 mg BEDTIME BRITTNEY Administration Atorvastatin Calcium 20 mg 02/05/21 09:00 02/05/21 08:03 Atorvastatin 40 Mg Tablet PO 20 mg DAILY BRITTNEY Administration Baclofen 10 mg 02/04/21 16:05 02/05/21 08:03 Baclofen 10 Mg Tablet PO 10 mg TID PRN Administration Spasms Citalopram Hydrobromide 40 mg 02/05/21 09:00 02/05/21 08:03 Citalopram 20 Mg Tablet PO 40 mg DAILY BRITTNEY Administration Diphenhydramine HCl 25 mg 02/05/21 10:19 02/05/21 10:52 Diphenhydramine 25 Mg Capsule PO 25 mg Q6H PRN Administration ITCHING Enoxaparin Sodium 40 mg 02/04/21 16:30 02/04/21 18:18 Enoxaparin 40 Mg/0.4 Ml Syringe SUBCUT 40 mg Q24H BRITTNEY Administration Gemfibrozil 600 mg 02/04/21 17:00 02/05/21 08:04 Gemfibrozil 600 Mg Tablet PO 600 mg BID@ BRITTNEY Administration Potassium Chloride/Sodium Chloride 20 meq in 1,000 mls @ 75 mls/hr 02/04/21 16:00 02/05/21 06:29 Sodium Chlor 0.9% + Kcl 20 Meq IV 75 mls/hr .[id number] BRITTNEY Administration Vancomycin HCl 1,000 mg/ 250 mls @ 250 mls/hr 02/05/21 07:00 02/05/21 07:26 Sodium Chloride IV Infused Q18H BRITTNEY Infusion Protocol Imipenem/Cilastatin Sodium 500 100 mls @ 200 mls/hr 02/04/21 16:45 02/05/21 08:39 mg/ Sodium Chloride IV Infused Q8H BRITTNEY Infusion Protocol Pantoprazole Sodium 40 mg 02/04/21 23:00 02/05/21 08:[address] 40 Mg Tablet PO 40 mg BID@ BRITTNEY Administration Senna/Docusate Sodium 1 tab 02/04/21 18:00 02/05/21 08:04 Sennosides-Docusate Tablet PO Not Given BID BRITTNEY PFSH Acute PFSH: Medical History Acute kidney injury Bowel perforation COPD (chronic obstructive pulmonary disease) Generalized anxiety disorder 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, recurrent severe without psychotic features Peritonitis (acute) generalized Pneumonia Rhabdomyolysis Septic shock Shock liver Surgical History H/O drainage of abscess (~12/13/20) Intra-abdominal H/O exploratory laparotomy drainage of intra abdominal abscess H/O of hysterectomy with bilateral oophorectomy Family History Mother CHF (congestive heart failure) Social History Smoking and tobacco status: current every day smoker cigarettes Packs smoked per day: 1 Alcohol intake: current Alcohol intake frequency: few times a month Household members: family Marital status: Current occupational status: unemployed History of recent travel: No Vitals/I&O/Wt Last Vital Signs Temp 99.1 F 02/05/21 12:00 Pulse 86 02/05/21 12:00 Resp 17 02/05/21 12:00 BP 114/69 02/05/21 12:00 Pulse Ox 91 02/05/21 12:00 02/04/21 02/05/21 02/05/21 22:59 06:59 14:59 Intake Total 2878.33 / 4630.83 1502.5 / 4630.83 550 / 550 Balance 2878.33 / 4630.83 1502.5 / 4630.83 550 / 550 Weight last 48 hrs Weight 170 lb Physical Exam Narrative: EXAM NARRATIVE: HEENT: Normocephalic Eye: Sclera /conjunctiva normal Abdomen: Soft to palpation, nontender, well-healed laparotomy in the middle where there is a wound measuring 1.5 x 1.5 cm x 1 cm drainage with purulence noted, no fluctuance noted Neurological: Oriented to place person and time Skin: Intact, no lesions appreciated on gross exam Data Micro: Micro: Microbiology 02/04/21 13:20 Blood Culture - Pr eliminary Blood NEGATIVE TO TOMMIE E 02/04/21 13:05 Blood Culture - Pr eliminary Blood NEGATIVE TO TOMMIE E Other Data: Other data: CT abdomen and pelvis on 02/04/2021 1. No residual fluid collection along the infraumbilical abdominal wall surgical incision. 2. There is extensive soft tissue thickening along the infraumbilical midline incision site. This soft tissue thickening extends through the anterior wall of the pelvis into the omentum to involve the small bowel. There are a few loops of small bowel with wall thickening and increase fluid suggesting a mild focal obstruction. At this time there is no high-grade obstruction. 3. Mild wall thickening and very small amount of edema in the sigmoid colon. Early changes of developing diverticulosis on chronic diverticulitis should be considered. 4. No free fluid. 5. Extensive atherosclerosis aorta. Suspect a significant stenosis involving the proximal iliac arteries bilaterally. A&P Assessment and plan (1) Abdominal wall abscess at site of surgical wound: 55-year-old female status post stroke and drainage of abdominal abscess x2 who presents with purulent drainage from the wound. CT abdomen pelvis yesterday showed significant thickening and edema but no abscesses that need to be drained. There is small bowel loops adherent to the area of inflammation and so there is always a potential risk for EC fistula but at this point there is no concerns of an EC fistula. Her white count was 21.9 yesterday on presentation and is down to 11.4 today. 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
[2021-02-05] MEDS: enoxaparin 40 mg/0.4 mL Syringe SUBCUT (16:05)
--- NOTE | 2021-02-05 18:52 | PC.NURSE ---
Report to Radha BURRELL at this time.
[2021-02-05] MEDS: amitriptyline 25 mg Tablet PO (21:45)
[2021-02-06] VITALS (8 sets, daily range): BP systolic 103–134; BP diastolic 51–77; PULSE 72–80; RESP 16–20; TEMP 36.7–37; O2SAT 91–94
[2021-02-06] MEDS: pantoprazole DR 40 mg Tablet PO ×2 (01:43→09:21)
[2021-02-06] MEDS: vancomycin 1,000 MG in sodium chloride 0.9% 250 ML 250 MG IV ×2 (01:45→17:23)
[2021-02-06 05:45] LABS: Basophils % 0.1 %; Eosinophils # 0.3 10^3/uL (0.0-0.8); Eosinophils % 4.2 %; Hematocrit 36.5 % (37.0-47.0); Hemoglobin 11.8 g/dL (11.5-15.3); Lymphocytes # 1.2 10^3/uL (0.8-4.8); Mean Corpuscular HGB Conc 32.3 g/dL (30.0-36.0); Mean Corpuscular Hemoglobin 28.9 pg (28.0-34.0); Mean Corpuscular Volume 89.2 fL (81-99); Mean Platelet Volume 8.8 fL (7.4-10.4); Monocytes # 0.5 10^3/uL (0.2-0.9); Neutrophils # 5.62 10^3/uL (1.8-7.7); Nucleated Red Blood Cells % 0 %; Platelet Count 160 10^3/cmm (130-400); Red Blood Count 4.09 10^6/uL (4.1-5.3); Red Cell Distribution Width 14.9 % (12.1-15.1); White Blood Count 7.7 10^3/uL (4.0-10.0)
[2021-02-06 06:08] LABS: Anion Gap 9.7 (5-19); Blood Urea Nitrogen 14 mg/dL (6-20); Calcium 8.2 mg/dL (8.5-10.5); Carbon Dioxide 26 mmol/L (22-29); Chloride 101 mmol/L (98-107); Glomerular Filtration Rate 74.7 mL/min (90-130); Glucose 94 mg/dL (65-115); Osmolality Calculated 278 mOsm/kg (285-295); Sodium 134 mmol/L (136-145)
[2021-02-06 06:09] LABS: Potassium 2.7 mmol/L (3.5-5.1)
[2021-02-06] MEDS: lidocaine 1% 5 ML in potassium chloride premix 100 ML 25 ML IV (07:00)
[2021-02-06 07:12] LABS: Magnesium 1.2 mg/dL (1.7-2.3); Phosphorus 2.2 mg/dL (2.5-4.5)
[2021-02-06] MEDS: atorvastatin 40 mg Tablet 20 MG PO (09:20)
[2021-02-06] MEDS: sennosides-docusate Tablet 1 TAB PO (09:21)
[2021-02-06] MEDS: gemfibrozil 600 mg Tablet PO ×2 (09:21→16:33)
[2021-02-06] MEDS: citalopram 20 mg Tablet 40 MG PO (09:22)
[2021-02-06] MEDS: ondansetron 2 mg/ML SDV 2 mL 4 MG IVP (10:34)
--- NOTE | 2021-02-06 12:26 | PM.DCS ---
Discharge Providers Date of Admission: 02/04/21 14:09 Date of Discharge: February 06, 2021 Attending Provider at Admission: Krish Rodgers MD Attending Provider at Discharge: Krish Rodgers MD Primary Care Provider: Paulo Stevens MD Diagnoses at Discharge Discharge Diagnosis (1) Sepsis: (2) Abdominal wall abscess at site of surgical wound: (3) COPD (chronic obstructive pulmonary disease): Qualifiers: COPD type: unspecified COPD Qualified Code(s): J44.9 - Chronic obstructive pulmonary disease, unspecified (4) Status post exploratory laparotomy: (5) Hypokalemia: Reason for Visit Reason for Visit: abdominal pain Hospital Course Hospital Course Irma Jones is a 55 year old female with PMH of COPD, Bowel Perforation 04/13/2020 with complicated Prolonged course since then as recent as 11/2020 when she underwent underwent drainage of intra-abdominal abscess followed by discharge on oral abxs and to follow with wound care clinic as outpatient. She was sent from the wound care clinic as she was having foul smelling pus discharge from the abdominal wound. Upon arrival in the ER she was worked up for above mention complain. Imaging Studies: C.T abdomen and Pelvis with contrast : No residual fluid collection along the infraumbilical abdominal wall surgical incision.extensive soft tissue thickening along the infraumbilical midline incision site. This soft tissue thickening extends through the anterior wall of the pelvis into the omentum to involve the small bowel.Labs : WBC : 75925, Lactic acid :1.7 , Procalcitonin: 5.45 K : 2.7 , BUN/SCR: 15/1.1. She was admitted for the management of Sepsis 2/2 to Abdominal wall Abscess.She was kept on Broad spectrum abxs wound care was done.Blood Culture was negative till the time of discharge.She responded well to the broad spectrum abxs at the time of discharge wbc count was normal,she was hemodynamically stable,based on the C.T evaluation there was no abscess to be drained.She was discharged on oral levofloxacin as well as metronidazole.She will continue to follow wound care clinic. Physical Exam Const: COMMON NORMALS: patient oriented x3 HENMT: COMMON NORMALS: normocephalic, atraumatic and external ears normal HEAD & SCALP: normocephalic and atraumatic EXTERNAL EAR: Yes external ears normal Eye: COMMON NORMALS: no scleral icterus GENERAL EYE: appearance normal, both eyes and all related structures Chest: CHEST: Yes Symmetrical chest wall rise Resp: COMMON NORMALS: clear to auscultation bilaterally EFFORT & INSPECTION: Yes symmetric chest movement AUSCULTATION: clear to auscultation bilaterally Cardio: COMMON NORMALS: regular rate, regular rhythm, S1 normal heart sound present, S2 normal heart sound present, No gallops present (Cardio), No murmurs present (Cardio), No rub (Cardio) and Peripheral pulses 2+ throughout RATE: regular rate RHYTHM: regular rhythm HEART SOUNDS: S1 normal heart sound present and S2 normal heart sound present PERIPHERAL PULSES: Peripheral pulses 2+ throughout GI: COMMON NORMALS: Soft to palpation and non-tender AUSCULTATION: Yes normoactive bowel sounds PALPATION: Yes Soft to palpation RECTAL EXAM: deferred OTHER: infraumbilical abdominal wall surgical incision with clear pus drainage from the packing site. Extremity: COMMON NORMALS: no clubbing, cyanosis or edema and no pedal edema Neuro: COMMON NORMALS: patient oriented x3 Discharge Data Data Completed and Pending: Completed Studies During Hospitalization Category Date Time Status CT abdomen pelvis w con* [id number] Stat Cat Scan 02/04/21 12:43 Completed XR chest 1V les ble [id number] Stat Exams 02/04/21 12:41 Completed Pending at discharge Category Date Time Status Basic Metabolic P gisell AM LABS Lab 02/07/21 04:00 Ordered Basic Metabolic P gisell Timed Lab 02/06/21 15:00 Ordered Blood Culture Sta t Lab 02/04/21 13:20 Results Complete Blood Co unt w/Auto AM LABS Lab 02/07/21 04:00 Ordered Urine Culture Sta t Lab 02/04/21 12:41 Results Vancomycin Trough Timed Lab 02/06/21 18:00 Ordered Labs from last 24 hours 02/06/21 02/06/21 02/06/21 05:10 05:10 05:10 WBC 7.7 RBC 4.09 L Hgb 11.8 Hct 36.5 L MCV 89.2 MCH 28.9 MCHC 32.3 RDW 14.9 Plt Count 160 MPV 8.8 Neut % (Auto) 73.0 Lymph % (Auto) 16.0 Cameron % (Auto) 6.0 Eos % (Auto) 4.2 Baso % (Auto) 0.1 Neut # (Auto) 5.62 Lymph # (Auto) 1.2 Cameron # (Auto) 0.5 Eos # (Auto) 0.3 Baso # (Auto) 0.0 Nucleated RBC % (a uto) 0 Nucleated RBCs # 0.0 Sodium 134 L Potassium 2.7 L* Chloride 101 Carbon Dioxide 26 Anion Gap 9.7 BUN 14 Creatinine 0.8 GFR Calculation 74.7 L Glucose 94 Calculated Osmolal ity 278 L Calcium 8.2 L Phosphorus 2.2 L Magnesium 1.2 L Vitals: Last Vital Signs Temp 98.1 F 02/06/21 12:00 Pulse 73 02/06/21 12:00 Resp 17 02/06/21 12:00 BP 103/60 02/06/21 12:00 Pulse Ox 91 02/06/21 12:00 Discharge Plan Discharge Patient Disposition: Home Condition: Stable Prescriptions: New fluconazole 200 mg tablet 200 mg PO DAILY Qty: 3 RF: 0 metronidazole 500 mg tablet 500 mg PO BID 7 Days Qty: 14 RF: 0 Klor-Con M20 20 mEq tablet,ER particles/crystals 20 meq PO DAILY Qty: 30 RF: 4 Continued gemfibrozil 600 mg tablet 600 mg PO BID@ RF: 0 atorvastatin 10 mg tablet 10 mg PO DAILY RF: 0 valsartan 80 mg tablet 80 mg PO DAILY@ RF: 0 baclofen 10 mg tablet 10 mg PO TID PRN (Reason: Spasms) RF: 0 alprazolam [Xanax] 1 mg tablet 1 mg PO TID PRN (Reason: anxiety) Qty: 90 RF: 3 cetirizine [Zyrtec] 10 mg Tablet 10 mg PO DAILY@ RF: 0 ibuprofen [Advil Migraine] 200 mg Capsule 400 mg PO PRN RF: 0 amlodipine 5 mg tablet 5 mg PO DAILY@09 RF: 0 pantoprazole [Protonix] 40 mg Tablet,Delayed Release (Dr/Ec) 40 mg PO BID@ RF: 0 sennosides-docusate sodium [Senna with Docusate Sodium] 8.6-50 mg tablet 1 tab-cap PO BID Qty: 30 RF: 0 ondansetron HCl [Zofran] 4 mg tablet 4 mg PO Q6H PRN (Reason: nausea and vomiting) Qty: 20 RF: 0 hydrochlorothiazide 50 mg tablet 50 mg PO DAILY RF: 0 Celexa 40 mg tablet 40 mg PO DAILY RF: 0 amitriptyline 25 mg tablet 25 mg PO BEDTIME RF: 0 levofloxacin 500 mg tablet 500 mg PO DAILY Qty: 7 RF: 0 Discharge Orders: Discharge Order (Routine); Ordered 02/06/21 Ordered By: Krish Rodgers Referrals: WOUND CARE CLINIC, [Staff Physician] - 1 week Discharge Diet: Regular Discharge Activity: Resume usual activity Patient Instructions: Abdominal Pain - Adult, Hypokalemia (DC), Chronic Obstructive Pulmonary Disease (DC), Sepsis (DC), Opioid Safety Discharge Attestations Time Spent in Discharge Care*: less than 30 min Specific Discharge Activities: educating patient, educating and/or supporting family/caregiver, discussing with pcp/other providers, discussing with embedded case manager/social workers/dc planners, documenting/other paperwork and evaluating patient/reviewing data Status at Discharge: Cognitive status at discharge: cognitively intact, Behavioral status at discharge: cooperative, Quality Metrics Clinical Quality Measures During this hospital stay, did patient experience: None Coding Level of Care Code Acute Chg FW DC note Diagnoses Sepsis A41.9 Abdominal wall abscess at site of surgical wound T81.49XA COPD (chronic obstructive pulmonary disease) J44.9 COPD type: unspecified COPD Status post exploratory laparotomy Z98.890 Hypokalemia E87.6
--- NOTE | 2021-02-06 15:18 | PC.NURSE ---
administered 350ml jevity 1.2 and 120ml water through peg tube.
[2021-02-06 16:03] LABS: Anion Gap 13.2 (5-19); Blood Urea Nitrogen 12 mg/dL (6-20); Calcium 8.7 mg/dL (8.5-10.5); Carbon Dioxide 23 mmol/L (22-29); Chloride 97 mmol/L (98-107); Glomerular Filtration Rate 87.2 mL/min (90-130); Glucose 79 mg/dL (65-115); Osmolality Calculated 269 mOsm/kg (285-295); Potassium 3.2 mmol/L (3.5-5.1); Sodium 130 mmol/L (136-145)
[2021-02-06] MEDS: enoxaparin 40 mg/0.4 mL Syringe SUBCUT (16:33)
--- NOTE | 2021-02-06 18:21 | PC.NURSE ---
discharge instructions given to patient and family. both verbalized understanding of instructions. IV will be discontinued when Vancomycin has been administered.
--- NOTE | 2021-02-06 18:49 | PC.NURSE ---
patient's iv removed. patient taken to private vehicle via wheelchair.
--- NOTE | 2021-02-07 18:00 | PC.RESP ---
SMOKING CESSATION INFORMATION SENT TO PATIENT.
== END 2021-02-06 18:50 | disposition home health service (06) | DRG 872 ==
LOC: ER 12:27 → MEDSURG 14:53
PROVIDERS: Hospitalist; Admitting Provider Internal Medicine; Emergency Provider Family Medicine; PCP Family Medicine; Visit Provider Internal Medicine
DX: A41.9 Sepsis, unspecified organism (principal); T81.41XA Infection following a procedure, superficial incisional surgical site, initial encounter; L02.211 Cutaneous abscess of abdominal wall; F33.9 Major depressive disorder, recurrent, unspecified; J44.9 Chronic obstructive pulmonary disease, unspecified; F41.1 Generalized anxiety disorder; M54.17 Radiculopathy, lumbosacral region; Z87.01 Personal history of pneumonia (recurrent); F17.210 Nicotine dependence, cigarettes, uncomplicated; I95.9 Hypotension, unspecified; E87.6 Hypokalemia
CPT/HCPCS: 36415; 71045; 74177; 80048; 80053; 80202; 83605; 83735; 84100; 84145; 85025; 87040; 87086; 87106; 96365; 96372; 96375; 99214; 99285; J0743; J1200; J1650; J1720; J2405; J3370; J3480; J7030; J7050; Q9967

== ENCOUNTER 2021-02-11 10:12 | Outpatient (CLI) | payer MEDICARE, MEDICAID, SELFPAY | END 2021-02-11 10:13 | disposition home or self-care (01) | LOC: WOUND 10:13 | PROVIDERS: PCP Family Medicine; Visit Provider Surgery | DX: T81.89XA Other complications of procedures, not elsewhere classified, initial encounter (principal); Y83.8 Other surgical procedures as the cause of abnormal reaction of the patient, or of later complication, without mention of misadventure at the time of the procedure | CPT/HCPCS: 11043 ==

== ENCOUNTER 2021-02-18 11:13 | Outpatient (CLI) | payer MEDICARE, MEDICAID, SELFPAY | END 2021-02-18 11:14 | disposition home or self-care (01) | LOC: WOUND 11:14 | PROVIDERS: PCP Family Medicine; Visit Provider Surgery | DX: T81.89XA Other complications of procedures, not elsewhere classified, initial encounter (principal); Y83.8 Other surgical procedures as the cause of abnormal reaction of the patient, or of later complication, without mention of misadventure at the time of the procedure | CPT/HCPCS: 11042 ==

== ENCOUNTER 2021-02-25 10:24 | Outpatient (CLI) | payer MEDICARE, MEDICAID, SELFPAY | END 2021-02-25 10:25 | disposition home or self-care (01) | LOC: WOUND 10:27 | PROVIDERS: PCP Family Medicine; Visit Provider Nurse Practitioner Family | DX: T81.89XA Other complications of procedures, not elsewhere classified, initial encounter (principal); Y83.8 Other surgical procedures as the cause of abnormal reaction of the patient, or of later complication, without mention of misadventure at the time of the procedure | CPT/HCPCS: 11042 ==

== ENCOUNTER 2021-03-04 10:39 | Outpatient (CLI) | payer MEDICARE, MEDICAID, SELFPAY | END 2021-03-04 10:40 | disposition home or self-care (01) | LOC: WOUND 10:41 | PROVIDERS: PCP Family Medicine; Visit Provider Thoracic Surgery (Cardiothoracic Vascular Surgery) | DX: T81.89XA Other complications of procedures, not elsewhere classified, initial encounter (principal); Y83.8 Other surgical procedures as the cause of abnormal reaction of the patient, or of later complication, without mention of misadventure at the time of the procedure | CPT/HCPCS: 97597 ==

== ENCOUNTER 2021-03-11 10:48 | Outpatient (CLI) | payer MEDICARE, MEDICAID, SELFPAY | END 2021-03-11 10:49 | disposition home or self-care (01) | LOC: WOUND 10:49 | PROVIDERS: PCP Family Medicine; Visit Provider Surgery | DX: T81.89XA Other complications of procedures, not elsewhere classified, initial encounter (principal); Y83.8 Other surgical procedures as the cause of abnormal reaction of the patient, or of later complication, without mention of misadventure at the time of the procedure | CPT/HCPCS: 11042 ==

== ENCOUNTER 2021-03-18 13:01 | Outpatient (CLI) | payer MEDICARE, MEDICAID, SELFPAY | END 2021-03-18 13:02 | disposition home or self-care (01) | LOC: WOUND 13:02 | PROVIDERS: PCP Family Medicine; Visit Provider Surgery | DX: Z20.822 Contact with and (suspected) exposure to COVID-19; Z11.52 Encounter for screening for COVID-19; T81.89XA Other complications of procedures, not elsewhere classified, initial encounter; Y83.8 Other surgical procedures as the cause of abnormal reaction of the patient, or of later complication, without mention of misadventure at the time of the procedure; Z01.818 Encounter for other preprocedural examination | CPT/HCPCS: 11043; 87635 ==

== ENCOUNTER 2021-03-25 10:56 | Outpatient (CLI) | payer MEDICARE, MEDICAID, SELFPAY | END 2021-03-25 10:57 | disposition home or self-care (01) | LOC: WOUND 10:57 | PROVIDERS: PCP Family Medicine; Visit Provider Surgery | DX: T81.89XA Other complications of procedures, not elsewhere classified, initial encounter (principal); Y83.8 Other surgical procedures as the cause of abnormal reaction of the patient, or of later complication, without mention of misadventure at the time of the procedure | CPT/HCPCS: 11042 ==

== ENCOUNTER 2021-03-28 21:36 | Emergency (ER) | payer MEDICARE, MEDICAID, SELFPAY ==
[2021-03-28 22:03] VITALS: BP 141/85; PULSE 82; RESP 17; TEMP 36.6; O2SAT 96; BMI 31.1
[2021-03-28 23:54] VITALS: BP 112/72; PULSE 78; RESP 20; O2SAT 98
--- NOTE | 2021-03-29 00:10 | ED_ITS ---
HPI - Recheck/Abnormal Lab/Rx General: Chief Complaint: Recheck/Abnormal Lab/Rx Stated Complaint: sent by gustavo/low potassium level Time Seen by Provider: 03/28/21 23:58 Source: patient Mode of arrival: ambulatory Limitations: no limitations History of Present Illness: HPI narrative: 55-year-old female who had a history of acute kidney injury from sepsis and sees nephrology for that. She is not on dialysis but still following with Dr. Coleman. States she had blood drawn and was called today for a low potassium level of 2.1. She was told to come to ER. She denies any weakness. She had no vomiting or diarrhea. She denies any recent illness. Denies any fevers. Review of Systems Const: Denies: fever(s), chills, body aches or change in appetite Eyes: Denies: blurry vision or eye discomfort ENMT: Denies: throat pain or dental pain Card: Denies: chest pain Resp: Denies: dyspnea GI: Denies: abdominal pain, nausea, vomiting or diarrhea : Denies: dysuria Musc: Denies: neck pain or back pain Skin/Breast: Denies: rash Neuro: Denies: headache(s) Psych: Denies: depression Jf/Lymph: Denies: easy bruising All/Imm: Denies: urticaria PFSH ED PFSH: Medical History Abdominal wall abscess at site of surgical wound Acute kidney injury Bowel perforation COPD (chronic obstructive pulmonary disease) Generalized anxiety disorder Hypokalemia 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, recurrent severe without psychotic features Peritonitis (acute) generalized Pneumonia Rhabdomyolysis Sepsis Septic shock Shock liver Surgical History H/O drainage of abscess (~12/13/20) Intra-abdominal H/O exploratory laparotomy drainage of intra abdominal abscess H/O of hysterectomy with bilateral oophorectomy Status post exploratory laparotomy Family History Mother CHF (congestive heart failure) Social History Smoking and tobacco status: current every day smoker cigarettes Packs smoked per day: 1 Alcohol intake: current Alcohol intake frequency: few times a month Household members: family Marital status: Current occupational status: unemployed History of recent travel: No Physical Exam Const: COMMON NORMALS: no acute distress, patient oriented x3 and healthy appearing HENMT: COMMON NORMALS: normocephalic and atraumatic HEAD & SCALP: normocephalic and atraumatic Eye: COMMON NORMALS: Equal, round and reactive pupils present and EOMs intact bilaterally PUPIL: Yes Equal, round and reactive pupils present Neck/C-Spine: COMMON NORMALS: full ROM and supple Chest: COMMONS NORMALS: normal inspection of the chest and normal palpation of entire chest wall Resp: COMMON NORMALS: normal respiratory effort, No retractions, No use of accessory muscles and clear to auscultation bilaterally AUSCULTATION: clear to auscultation bilaterally Cardio: COMMON NORMALS: regular rate, regular rhythm and No murmurs present (Cardio) RATE: regular rate RHYTHM: regular rhythm GI: COMMON NORMALS: Normal to inspection, nondistended, normoactive bowel sounds present, Soft to palpation, non-tender and no masses PALPATION: Yes Soft to palpation Extremity: COMMON NORMALS: normal to inspection and full ROM Neuro: COMMON NORMALS: patient oriented x3, moves all extremities and no focal motor deficits Psych: COMMON NORMALS: mental status grossly normal, Normal thought process present and cooperative THOUGHT PROCESS: Normal thought process present Skin: COMMON NORMALS: no rashes or lesions noted and no wounds GENERAL SKIN EXAM: no rashes or lesions noted Course Vital Signs: Vital signs: Vital Signs Temperature 97.9 F 03/28/21 22:03 Pulse Rate 78 03/28/21 23:54 Respiratory Rate 20 H 03/28/21 23:54 Blood Pressure 112/72 03/28/21 23:54 Pulse Oximetry 98 03/28/21 23:54 MDM - Recheck/Abnormal Lab/Rx MDM Narrative: Medical decision making narrative: Patient presents here with low potassium from primary care office. This is likely a lab area as her potassium here is 3.5. She has no medical complaints. She is stable for discharge and is to follow-up with PCP and return if worsening. Lab Data: Labs: Lab Results 03/29/21 Range/Units 00:20 Sodium 134 L (136-145) mmol/L Potassium 3.5 (3.5-5.1) mmol/L Chloride 98 (98-107) mmol/L Carbon Dioxide 27 (22-29) mmol/L Anion Gap 12.5 (5-19) BUN 8 (6-20) mg/dL Creatinine 0.7 (0.5-0.9) mg/dL GFR Calculation 87.2 L (90-130) mL/min Glucose 88 (65-115) mg/dL Calculated Osmolal ity 276 L (285-295) mOsm/k g Calcium 8.8 (8.5-10.5) mg/dL Discharge Plan Discharge Patient Disposition: Home Clinical Impression: Hypokalemia Condition: Stable Prescriptions: No Action gemfibrozil 600 mg tablet 600 mg PO BID@ RF: 0 atorvastatin 10 mg tablet 10 mg PO DAILY RF: 0 valsartan 80 mg tablet 80 mg PO DAILY@ RF: 0 baclofen 10 mg tablet 10 mg PO TID PRN (Reason: Spasms) RF: 0 alprazolam [Xanax] 1 mg tablet 1 mg PO TID PRN (Reason: anxiety) Qty: 90 RF: 3 cetirizine [Zyrtec] 10 mg Tablet 10 mg PO DAILY@ RF: 0 ibuprofen [Advil Migraine] 200 mg Capsule 400 mg PO PRN RF: 0 amlodipine 5 mg tablet 5 mg PO DAILY@ RF: 0 pantoprazole [Protonix] 40 mg Tablet,Delayed Release (Dr/Ec) 40 mg PO BID@ RF: 0 sennosides-docusate sodium [Senna with Docusate Sodium] 8.6-50 mg tablet 1 tab-cap PO BID Qty: 30 RF: 0 ondansetron HCl [Zofran] 4 mg tablet 4 mg PO Q6H PRN (Reason: nausea and vomiting) Qty: 20 RF: 0 hydrochlorothiazide 50 mg tablet 50 mg PO DAILY RF: 0 Celexa 40 mg tablet 40 mg PO DAILY RF: 0 amitriptyline 25 mg tablet 25 mg PO BEDTIME RF: 0 fluconazole 200 mg tablet 200 mg PO DAILY Qty: 3 RF: 0 levofloxacin 500 mg tablet 500 mg PO DAILY Qty: 7 RF: 0 Klor-Con M20 20 mEq tablet,ER particles/crystals 20 meq PO DAILY Qty: 30 RF: 4 Discharge Orders: Discharge ED (Routine); Ordered 03/29/21 Ordered By: Brianne Chang Referrals: Paulo Stevens MD [Primary Care Provider] - Discharge Diet: Advance as tolerated Discharge Activity: Resume usual activity Patient Instructions: Hypokalemia (ED) Coding Level of Care Code ED Structural Rigger for Chg Fwd Exam Comprehensive
[2021-03-29 00:52] LABS: Blood Urea Nitrogen 8 mg/dL (6-20); Calcium 8.8 mg/dL (8.5-10.5); Carbon Dioxide 27 mmol/L (22-29); Chloride 98 mmol/L (98-107); Glomerular Filtration Rate 87.2 mL/min (90-130); Glucose 88 mg/dL (65-115); Osmolality Calculated 276 mOsm/kg (285-295); Sodium 134 mmol/L (136-145)
[2021-03-29 00:54] LABS: Anion Gap 12.5 (5-19); Potassium 3.5 mmol/L (3.5-5.1)
[2021-03-29 01:07] VITALS: BP 112/70; PULSE 72; RESP 16; O2SAT 95
== END 2021-03-29 01:07 | disposition home or self-care (01) ==
PROVIDERS: Emergency Provider Emergency Medicine; PCP Family Medicine
DX: E87.6 Hypokalemia (principal); J44.9 Chronic obstructive pulmonary disease, unspecified; F17.210 Nicotine dependence, cigarettes, uncomplicated
CPT/HCPCS: 80048; 99282

== ENCOUNTER → 2021-03-31 07:11 | Outpatient (BNVA) | payer MEDICARE, MEDICAID, SELFPAY | PROVIDERS: PCP Family Medicine; Visit Provider Nurse Practitioner Psychiatric/Mental Health | DX: F33.2 Major depressive disorder, recurrent severe without psychotic features (principal); F41.1 Generalized anxiety disorder; F17.210 Nicotine dependence, cigarettes, uncomplicated | CPT/HCPCS: 87635; 99214 ==

== ENCOUNTER 2021-04-01 10:56 | Outpatient (CLI) | payer MEDICARE, MEDICAID, SELFPAY | END 2021-04-01 10:57 | disposition home or self-care (01) | LOC: WOUND 10:57 | PROVIDERS: PCP Family Medicine; Visit Provider Surgery | DX: T81.89XA Other complications of procedures, not elsewhere classified, initial encounter (principal); Y83.8 Other surgical procedures as the cause of abnormal reaction of the patient, or of later complication, without mention of misadventure at the time of the procedure; F17.210 Nicotine dependence, cigarettes, uncomplicated | CPT/HCPCS: 11042 ==

== ENCOUNTER 2021-04-04 06:28 | Day surgery (SDC) | payer MEDICARE, MEDICAID, SELFPAY ==
[2021-03-31 11:33] VITALS: BMI 31.1
--- NOTE | 2021-04-04 06:51 | W.PM.OPSFHP ---
Same Day Surgery H&P Indication for Procedure/HPI DATE OF PROCEDURE: April 04, 2021 CHIEF COMPLAINT/INDICATIONFOR SURGICAL PROCEDURE: I have difficulty in swallowing and my tummy hurts PREOP DIAGNOSIS: Abdominal pain PLANNED PROCEDRUE: Operation Date: 04/04/21 07:45 Proposed Procedures p EGD 85880 k21.9(Not Applicable) - Toño Villegas MD This is a pleasant 51 this is a pleasant 55 years old female patient, well-known to me from previous clinical encounters and she continues to be my patient at the [facility]. Patient undergone laparotomy for perforated viscus more than a year and a half now clear for perforated sigmoid colon. And she has been complaining of upper abdominal discomfort and worsening acid reflux in addition to difficulty in swallowing. Patient is currently on PPI therapy and she was supposed to get the colonoscopy today as well but as she continues to have abdominal wall sinus, I elected to proceed with a EGD for now and then obtain a barium enema versus a colonoscopy down the road. ROS All systems have been reviewed, all negative except as per the above or per problem list Medications/Allergies* Home Medications Medication Instructions Recorded Confirmed Type valsartan 80 mg tablet 80 mg PO DAILY@09/17/19 03/31/21 History baclofen 10 mg tablet 10 mg PO TID PRN 11/25/19 03/31/21 History gemfibrozil 600 mg tablet 600 mg PO BID@06/10/20 03/31/21 History amlodipine 5 mg PO DAILY@12/13/20 03/31/21 History cetirizine [Zyrtec] 10 mg PO DAILY@12/13/20 03/31/21 History pantoprazole [Protonix] 40 mg PO BID@12/13/20 03/31/21 History atorvastatin 10 mg tablet 10 mg PO DAILY 02/01/21 03/31/21 History hydrochlorothiazide 50 mg tablet 25 mg PO DAILY tab 03/30/21 03/31/21 History Allergies/Adverse Reactions Allergy/AdvReac Type Severity Reaction Status Date / Time amoxicillin Allergy Severe ALGY-Rash Verified 04/04/21 06:54 codeine Allergy Unknown rash, Verified 04/04/21 06:54 itching Penicillins Allergy Unknown rash, Verified 04/04/21 06:54 itching Sulfa (Sulfonamide Allergy Unknown rash, Verified 04/04/21 06:54 Antibiotics) itching Iodinated Contrast Media Allergy Unknown Verified 04/04/21 06:54 Pertinent History/Comorbid Conditions* Medical History (Updated 03/29/21 @ 00:58 by Brianne Chang MD) Abdominal wall abscess at site of surgical wound Acute kidney injury Bowel perforation COPD (chronic obstructive pulmonary disease) Generalized anxiety disorder Hypokalemia 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, recurrent severe without psychotic features Peritonitis (acute) generalized Pneumonia Rhabdomyolysis Sepsis Septic shock Shock liver Surgical History (Updated 02/07/21 @ 00:01 by ) H/O drainage of abscess (~12/13/20) Intra-abdominal H/O exploratory laparotomy drainage of intra abdominal abscess H/O of hysterectomy with bilateral oophorectomy Status post exploratory laparotomy Family History (Updated 09/24/19 @ 14:46 by Deborah Rousseau LPN) CHF (congestive heart failure) Mother Social History Smoking and tobacco status: current every day smoker cigarettes Packs smoked per day: 1 Alcohol intake: current Alcohol intake frequency: few times a month Household members: family Marital status: Current occupational status: unemployed History of recent travel: No Pertinent Exam Findings alert, oriented x 3, clear to auscultation bilaterally, regular rate & rhythm and procedure specific exam findings (Abdominal examination nontender nondistended soft) Recommendations Surgery/Procedure today (EGD with possible biopsy ) Other Plans: Plan of care; After thorough history and physical examination and reviewing the chart, plan to perform a diagnostic esophagogastroduodenoscopy with possible biopsy in the GI lab. I discussed with the patient in detail the risk,benefits,alternatives and indications.The risk of aspiration, bleeding, soft tissue injury, perforation of the stomach/esophagus and other potential concomitant complications were explained to the patient in details,aslo the potential need for Thoracic and or Abdominal surgery to repair any complications.The patient understood this well and did agree to proceed. Rationale was carefully and clearly discussed with the patient.Appropriate informed consent have been reviewed and signed All questions have been answered and all concerns have been addressed to patient's satisfaction. Coding Level of Care Code Acute Paper Cone Maker for Pretty Waggoner
[2021-04-04 07:02] VITALS: BP 128/73; PULSE 76; RESP 18; TEMP 36.2; O2SAT 94
--- NOTE | 2021-04-04 07:12 | ANES.PREANE2 ---
Pre-Anesthetic Assessment Pre-Anesthetic Assessment: Height/Weight: Height 1.55 m Weight 74.843 kg Temp Pulse Resp BP Pulse Ox 97.2 F L 76 18 128/73 94 04/04/21 07:02 04/04/21 07:02 04/04/21 07:02 04/04/21 07:02 04/04/21 07:02 Preop Diagnosis: Abdominal pain Proposed Procedure: Operation Date: 04/04/21 07:45 Proposed Procedures p EGD 01119 k21.9(Not Applicable) - Toño Villegas MD Was Beta Edwin taken within 24 hours: N/A Was Clonidine taken within 24 hours: N/A Last intake: Intake Last Liquid Date 04/03/21 Last Liquid Time 22:30 Last Solid Date 04/03/21 Last Solid Time 18:30 Social: Social History: Tobacco and No alcohol Exam: Pre-Anes Outpt Exam: alert, oriented x 3 and regular rate & rhythm Airway: Submandibular: WNL Cervical ROM: WNL MP: 2 Dentition: Loose (upper arch) Pulmonary: Pulmonary: COPD CV/HEM: CV/HEM: HTN GI: GI: GERD Metabolic: Metabolic: Hyperlipidemia Musc/skel: Musc/skel: Lower Back Pain Neuropsych: Neuropsych: Anxiety Anesthetic Plan: ASA status: 3 Anesthesia: MAC Risk of > 500 ml blood loss (7ml/kg in children): No PFSH Anesthesia PFSH: Medical History Abdominal wall abscess at site of surgical wound Acute kidney injury Bowel perforation COPD (chronic obstructive pulmonary disease) Generalized anxiety disorder Hypokalemia 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, recurrent severe without psychotic features Peritonitis (acute) generalized Pneumonia Rhabdomyolysis Sepsis Septic shock Shock liver Surgical History H/O drainage of abscess (~12/13/20) Intra-abdominal H/O exploratory laparotomy drainage of intra abdominal abscess H/O of hysterectomy with bilateral oophorectomy Status post exploratory laparotomy Family History Mother CHF (congestive heart failure) Social History Smoking and tobacco status: current every day smoker cigarettes Packs smoked per day: 1 Alcohol intake: current Alcohol intake frequency: few times a month Household members: family Marital status: Current occupational status: unemployed History of recent travel: No Data Anesthesia Cardiac Studies: No Data to Display
[2021-04-04] MEDS: sodium chloride 0.9% 1,000 ML 30 ML IV (07:20)
[2021-04-04 07:59] VITALS: BP 110/63; PULSE 73; RESP 16; TEMP 36.3; O2SAT 94
--- NOTE | 2021-04-04 08:05 | ANE.PACU2 ---
Inpatient post-anesthesia follow up: Airway intact: Yes Vital signs: Temperature 97.4 F Pulse Rate 73 Respiratory Rate 16 Blood Pressure 110/63 Pulse Oximetry 94 Oxygen Delivery Me thod Nasal Cannula Oxygen Flow Rate 2 Fraction of Inspir ed Oxygen Hydration adequate: Yes Nausea and vomiting: No
[2021-04-04 08:15] VITALS: BP 110/63; PULSE 70; RESP 18; O2SAT 94
--- NOTE | 2021-04-04 12:55 | ANE.PACU2 ---
Inpatient post-anesthesia follow up: Airway intact: Yes Vital signs: Temperature 97.4 F Pulse Rate 70 Respiratory Rate 18 Blood Pressure 110/63 Pulse Oximetry 94 Oxygen Delivery Me thod Room Air Oxygen Flow Rate 2 Fraction of Inspir ed Oxygen Hydration adequate: Yes Nausea and vomiting: No Pain level: 1 Mental status: Baseline
[2021-04-05 07:09] LABS: H. Pylori / CLO Test Negative
== END 2021-04-04 08:39 | disposition home or self-care (01) ==
PROVIDERS: PCP Family Medicine; Visit Provider Surgery
PROC: 0DJ08ZZ Inspection of Upper Intestinal Tract, Via Natural or Artificial Opening Endoscopic (ICD-10-PCS; CPT 43235; principal; 2021-04-04 07:45)
DX: R13.10 Dysphagia, unspecified (principal); R10.9 Unspecified abdominal pain; K21.00 Gastro-esophageal reflux disease with esophagitis, without bleeding; K31.89 Other diseases of stomach and duodenum; K29.70 Gastritis, unspecified, without bleeding; K29.80 Duodenitis without bleeding; J44.9 Chronic obstructive pulmonary disease, unspecified; Z82.49 Family history of ischemic heart disease and other diseases of the circulatory system; F17.210 Nicotine dependence, cigarettes, uncomplicated
CPT/HCPCS: 43239; 87077; 96360; J2704; J7030

== ENCOUNTER 2021-04-08 10:20 | Outpatient (CLI) | payer MEDICARE, MEDICAID, SELFPAY | END 2021-04-08 10:21 | disposition home or self-care (01) | LOC: WOUND 10:22 | PROVIDERS: PCP Family Medicine; Visit Provider Surgery | DX: T81.89XA Other complications of procedures, not elsewhere classified, initial encounter (principal); Y83.8 Other surgical procedures as the cause of abnormal reaction of the patient, or of later complication, without mention of misadventure at the time of the procedure; F17.210 Nicotine dependence, cigarettes, uncomplicated | CPT/HCPCS: G0463 ==

== ENCOUNTER 2021-04-13 09:50 | Outpatient (CLI) | payer MEDICARE, MEDICAID, SELFPAY ==
--- NOTE | 2021-04-13 10:01 | NM_ITS ---
WS: [id number] NUCLEAR MEDICINE GASTRIC EMPTYING EXAMINATION HISTORY: FOOD BEZOAR COMPARISON: None available. TECHNIQUE: The patient ingested a meal containing 0.95 mCi of Tc 99m sulfur colloid mixed with eggs. The patient was placed in supine position and imaging over the abdomen was performed for a total of 9 0 minutes. Computer acquisition with the region of interest placed over the stomach to evaluate gastr ic emptying half-time. Stomach is well-distended with the radionuclide meal. At 120 minutes only 34% has emptied from the st omach. Consistent with moderate delay in gastric emptying. NM/[place] [id number] IMPRESSION: Moderate delay in gastric emptying. At 120 minutes only 34% has emptied from th e stomach.
== END 2021-04-13 09:51 | disposition home or self-care (01) ==
PROVIDERS: PCP Family Medicine; Visit Provider Surgery
DX: T18.9XXA Foreign body of alimentary tract, part unspecified, initial encounter (principal); T18.2XXA Foreign body in stomach, initial encounter; X58.XXXA Exposure to other specified factors, initial encounter
CPT/HCPCS: 78264; A9541

== ENCOUNTER 2021-04-14 17:08 | Emergency (ER) | payer MEDICARE, MEDICAID, SELFPAY ==
[2021-04-14 17:42] VITALS: BP 124/79; PULSE 86; RESP 19; TEMP 37.1; O2SAT 95
--- NOTE | 2021-04-14 18:49 | CTR_ITS ---
PROCEDURE INFORMATION: Exam: CT Abdomen And Pelvis Without Contrast Exam date and time: 04/14/2021 6:49 PM Age: 55 years old Clinical indication: Abdominal pain; Flank; Other: Bilateral; Prior surgery; Surgery type: Bowel. Gb; Additional info: Flank pain TECHNIQUE: Imaging protocol: Computed tomography of the abdomen and pelvis without contrast. Sagittal and coronal reformatted images were created and reviewed. Radiation optimization: All CT scans at this facility use at least one of these dose optimization techniques: automated exposure control; mA and/or kV adjustment per patient size (includes targeted exams where dose is matched to clinical indication); or iterative reconstruction. COMPARISON: CT abdomen pelvis w con* [id number] 02/04/2021 1:17 PM RADIATION DOSE METRICS: Total DLP (mGy-cm): 1671.26 FINDINGS: Limitations: Evaluation of solid organs and vasculature is limited without intravenous contrast. This is standard protocol for evaluation of possible urolithiasis. Lungs: Visualized lungs are clear. Pleural spaces: No pleural effusion. Heart: Stable mild enlargement of the visualized portions of the heart. Liver: Stable nodular contour of the liver. Gallbladder and bile ducts: Stable findings consistent with a previous cholecystectomy. Dilatation of the biliary ducts, not unexpected in a patient who has had a prior cholecystectomy. Pancreas: The pancreas is unremarkable. No pancreatic ductal dilatation. Spleen: Stable mild enlargement of the spleen measuring 13.9 cm in length. Adrenal glands: The right and left adrenal glands are unremarkable. Kidneys and ureters: A focal cortical calcification in the right kidney is stable. The left kidney is unremarkable. The right and left ureters are unremarkable. Stomach and bowel: Numerous diverticula in the sigmoid colon. Mild wall thickening of the sigmoid colon with surrounding pericolonic inflammatory change, findings are stable. The stomach is collapsed, which can limit evaluation. No focal abnormality in the stomach otherwise. No acute abnormality in the small bowel. Appendix: The appendix is visualized and is unremarkable. No findings to suggest acute appendicitis. Intraperitoneal space: No free intraperitoneal air. No ascites. No loculated fluid collections to suggest an abscess. Vasculature: Stable mild atherosclerotic calcification in the visualized coronary arteries. Moderate to severe atherosclerotic changes in the visualized arteries. 25% stenosis of the distal abdominal aorta and 75% stenosis at the origin of the left common iliac artery. Findings are stable. No evidence for aortic aneurysm. Stable small caliber varices in the upper abdomen. Lymph nodes: No lymphadenopathy. Urinary bladder: Diffuse, mild wall thickening of the bladder. Reproductive: Stable changes consistent with a previous hysterectomy. The ovaries are not definitely visualized. This may be due to ovarian atrophy. Alternatively, the patient may have had a previous bilateral oophorectomy. Findings are stable. Bones/joints: Degenerative changes in the spine and hips. Multilevel foraminal stenosis of varying severity in the lumbar spine. Soft tissues: Extensive soft tissue thickening along the lower aspect of a midline anterior surgical scar and extending into the underlying anterior peritoneum is stable. An suspicious for scar tissue. Interval development of mild subcutaneous fat stranding over the lower abdomen and pelvis anteriorly, possible cellulitis cannot be ruled out. CT/CT abdomen pelvis wo con [id number] IMPRESSION: 1. Sigmoid diverticulosis. Changes consistent with mild persistent chronic versus recurrent sigmoid diverticulitis. 2. Interval development of mild subcutaneous fat stranding over the lower abdomen and pelvis anteriorly, possible cellulitis cannot be ruled out. Recommend clinical correlation. 3. Diffuse, mild wall thickening of the bladder. In the correct clinical setting, this may suggest cystitis. Recommend correlation with laboratory findings. Alternatively, this may be secondary to chronic outlet obstruction. 4. Moderate to severe atherosclerotic changes in the visualized arteries. 25% stenosis of the distal abdominal aorta and 75% stenosis at the origin of the left common iliac artery. Findings are stable. 5. Extensive soft tissue thickening along the lower aspect of a midline anterior surgical scar and extending into the underlying anterior peritoneum is stable. An suspicious for scar tissue. 6. Stable findings of cirrhosis and portal hypertension with mild splenomegaly and small caliber varices in the upper abdomen. 7. Incidental/nonacute findings are listed in the report. Radiation Dose CTDIVOL = (mGy): DLP = 1671.26 (mGy-cm)
--- NOTE | 2021-04-14 18:50 | W.ED.WOUNDLC ---
HPI - Wound/Laceration General: Chief Complaint: Wound/Laceration Stated Complaint: OPEN WOUND, LOWER ABD/GROIN Time Seen by Provider: 04/14/21 18:43 History of Present Illness: HPI narrative: This patient is a 55-year-old female that has a ongoing open wound to her lower abdomen from an incision and surgical wound from her surgery 1 year ago. This wound was created after having a bowel perforation and surgery. Wound was subsequently disadhesed. Patient has been followed with wound care once a day for over a year. Patient has had 2 episodes of sepsis in the past and wound infection. Patient was presented back to the emergency department today due to drainage that appeared to be an infectious type drainage from the wound in the lower abdomen. Patient was seen by Dr. Villegas general surgeon today but did not have a wound evaluation at his office. Patient states wound care advised her to come to the emergency department for further evaluation and treatment if needed. Onset (ago): hour(s) Location: abdomen Associated symptoms: Denies chills, fever(s), nausea or vomiting Review of Systems General: Reports: 10 or more systems reviewed and unremarkable except in HPI and below Const: Denies: fever(s), chills, body aches or fatigue Eyes: Denies: change in vision or blurry vision ENMT: Denies: throat pain, hoarseness or mouth pain Card: Denies: chest pain, palpitations, irregular heart rhythm, edema, swelling of feet/ankles or lightheadedness Resp: Denies: dyspnea, productive cough, non-productive cough, wheezing or pain on inspiration GI: Reports: other (Infected open wound lower abdomen); Denies: abdominal pain, nausea or vomiting : Denies: flank pain, difficulty voiding, dysuria, urinary frequency, urinary urgency or urinary hesitancy Musc: Denies: neck pain, back pain, extremity pain, extremity swelling, joint pain, joint swelling, joint redness, joint warmth or limited range of motion Skin/Breast: Denies: rash, pruritus, erythema or skin tenderness Neuro: Denies: headache(s), numbness in extremities or weakness in extremities Psych: Denies: anxiety or depression PFS ED PFSH: Medical History Abdominal wall abscess at site of surgical wound Acute kidney injury Bowel perforation COPD (chronic obstructive pulmonary disease) Generalized anxiety disorder Hypokalemia 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, recurrent severe without psychotic features Peritonitis (acute) generalized Pneumonia Rhabdomyolysis Sepsis Septic shock Shock liver Surgical History H/O drainage of abscess (~12/13/20) Intra-abdominal H/O exploratory laparotomy drainage of intra abdominal abscess H/O of hysterectomy with bilateral oophorectomy Status post exploratory laparotomy Family History Mother CHF (congestive heart failure) Social History Smoking and tobacco status: current every day smoker cigarettes Packs smoked per day: 1 Alcohol intake: current Alcohol intake frequency: few times a month Household members: family Marital status: Current occupational status: unemployed History of recent travel: No Physical Exam Const: COMMON NORMALS: no acute distress, average body habitus, patient oriented x3, no limitations, healthy appearing, alert and well nourished HENMT: COMMON NORMALS: normocephalic, atraumatic, hearing grossly normal bilaterally, external ears normal, EAC's normal, TM's normal bilaterally, Normal external nose present, Normal nasal mucous membranes and turbinates present, moist oral mucous membranes, oropharynx normal, dentition normal and gingiva normal HEAD & SCALP: normocephalic and atraumatic NOSE: Normal external nose present and Normal nasal mucous membranes and turbinates present EXTERNAL EAR: Yes external ears normal EXTERNAL AUDITORY CANAL: EAC's normal TYMPANIC MEMBRANE: TM's normal bilaterally Neck/C-Spine: COMMON NORMALS: full ROM, no lymphadenopathy, supple, no meningeal signs, no JVD, Thyroid normal and No carotid bruits THYROID: Thyroid normal Chest: COMMONS NORMALS: normal inspection of the chest, normal palpation of entire chest wall, normal inspection of the breasts and normal palpation of the breasts Breast/axilla inspection: Yes normal inspection of the breasts BREAST/AXILLA PALPATION: Yes normal palpation of the breasts Resp: COMMON NORMALS: normal respiratory effort, No retractions, No use of accessory muscles, clear to auscultation bilaterally and percussion normal AUSCULTATION: clear to auscultation bilaterally PERCUSSION: percussion normal Cardio: COMMON NORMALS: no JVD, regular rate, regular rhythm, S1 normal heart sound present, S2 normal heart sound present, No gallops present (Cardio), No clicks present (Cardio), No murmurs present (Cardio), No rub (Cardio) and Peripheral pulses 2+ throughout RATE: regular rate RHYTHM: regular rhythm HEART SOUNDS: S1 normal heart sound present and S2 normal heart sound present PERIPHERAL PULSES: Peripheral pulses 2+ throughout GI: COMMON NORMALS: Normal to inspection, nondistended, normoactive bowel sounds present, Soft to palpation, non-tender, No hepatosplenomegaly present, no masses and no bruits PALPATION: Yes Soft to palpation and Yes No hepatosplenomegaly present PERCUSSION: Other (Chronic open wound draining discolored fluid from lower abdomen in the midl) GI image (female): 1. 2. 3. Back/Pelvis: COMMON NORMALS: thoracic and lumbar spine normal to inspection, no thoracic nor lumbar tenderness, thoraco-lumbar ROM normal and straight leg raise negative bilaterally Extremity: COMMON NORMALS: normal to inspection, full ROM, capillary refill normal, no joint enlargement, no clubbing, cyanosis or edema, no calf tenderness and no pedal edema Neuro: COMMON NORMALS: patient oriented x3 SENSORIUM/ORIENTATION: Yes alert MENINGEAL SIGNS: Yes no meningeal signs Course Reevaluation(s): Reevaluation #1: Patient is questionable whether early cellulitis of the wound. Patient is wound is draining and is followed by wound care chronically. Patient received vancomycin in the emergency department will discharge patient home on p.o. medications. Patient does have an appointment with wound care tomorrow we will see Dr. Villegas at that time. Time: 20:13 Vital Signs: Vital signs: Vital Signs Temperature 98.7 F 04/14/21 17:42 Pulse Rate 86 04/14/21 17:42 Respiratory Rate 19 H 04/14/21 17:42 Blood Pressure 124/79 04/14/21 17:42 Pulse Oximetry 95 04/14/21 17:42 MDM - Wound/Laceration MDM Narrative: Medical decision making narrative: Patient is questionable whether early cellulitis of the wound. Patient is wound is draining and is followed by wound care chronically. Patient received vancomycin in the emergency department will discharge patient home on p.o. medications. Patient does have an appointment with wound care tomorrow we will see Dr. Villegas at that time. Lab Data: Labs: Lab Results 04/14/21 04/14/21 Range/Units 18:55 18:55 WBC 12.4 H (4.0-10.0) 10^3/ uL RBC 4.36 (4.1-5.3) 10^6/u L Hgb 13.4 (11.5-15.3) g/dL Hct 41.2 (37.0-47.0) % MCV 94.5 (81-99) fl MCH 30.7 (28.0-34.0) pg MCHC 32.5 (30.0-36.0) g/dL RDW 15.4 H (12.1-15.1) % Plt Count 180 (130-400) 10^3/c mm MPV 9.1 (7.4-10.4) fL Neut % (Auto) 73.9 % Lymph % (Auto) 15.8 % [place] % (Auto) 7.6 % Eos % (Auto) 1.5 % Baso % (Auto) 0.6 % Neut # (Auto) 9.18 H (1.8-7.7) 10^3/u L Lymph # (Auto) 2.0 (0.8-4.8) 10^3/u L [place] # (Auto) 1.0 H (0.2-0.9) 10^3/u L Eos # (Auto) 0.2 (0.0-0.8) 10^3/u L Baso # (Auto) 0.1 (0.0-0.1) 10^3/u L Nucleated RBC % (a uto) 0 % Nucleated RBCs # 0.0 /100WBC Sodium 136 (136-145) mmol/L Potassium 3.2 L (3.5-5.1) mmol/L Chloride 99 (98-107) mmol/L Carbon Dioxide 26 (22-29) mmol/L Anion Gap 14.2 (5-19) BUN 15 (6-20) mg/dL Creatinine 0.8 (0.5-0.9) mg/dL GFR Calculation 74.7 L (90-130) mL/min Glucose 84 (65-115) mg/dL Calculated Osmolal ity 282 L (285-295) mOsm/k g Calcium 9.0 (8.5-10.5) mg/dL Total Bilirubin 0.5 (0.15-1.2) mg/dL AST 14 (0-32) U/L ALT 6 (0-33) U/L Alkaline Phosphata se 136 H (35-105) IU/L Total Protein 7.1 (6.6-8.7) g/dL Albumin 3.8 (3.5-5.2) g/dL Globulin 3.3 (1.3-4.6) g/dL Imaging Data^: CT Abd/Pel: Attestation: I personally reviewed and interpreted this imaging study as follows: Radiologist's impression: IMPRESSION: 1. Sigmoid diverticulosis. Changes consistent with mild persistent chronic versus recurrent sigmoid diverticulitis. 2. Interval development of mild subcutaneous fat stranding over the lower abdomen and pelvis anteriorly, possible cellulitis cannot be ruled out. Recommend clinical correlation. 3. Diffuse, mild wall thickening of the bladder. In the correct clinical setting, this may suggest cystitis. Recommend correlation with laboratory findings. Alternatively, this may be secondary to chronic outlet obstruction. 4. Moderate to severe atherosclerotic changes in the visualized arteries. 25% stenosis of the distal abdominal aorta and 75% stenosis at the origin of the left common iliac artery. Findings are stable. 5. Extensive soft tissue thickening along the lower aspect of a midline anterior surgical scar and extending into the underlying anterior peritoneum is stable. An suspicious for scar tissue. 6. Stable findings of cirrhosis and portal hypertension with mild splenomegaly and small caliber varices in the upper abdomen. 7. Incidental/nonacute findings are listed in the report. Discharge Plan Discharge Patient Disposition: Home Clinical Impression: Postoperative wound infection Condition: Stable Prescriptions: New clindamycin HCl 300 mg capsule 300 mg PO Q8H 21 Days Qty: 63 RF: 0 No Action gemfibrozil 600 mg tablet 600 mg PO BID@,17 RF: 0 atorvastatin 10 mg tablet 10 mg PO DAILY RF: 0 valsartan 80 mg tablet 80 mg PO DAILY@09 RF: 0 baclofen 10 mg tablet 10 mg PO TID PRN (Reason: Spasms) RF: 0 amitriptyline 25 mg tablet 25 mg PO BEDTIME Qty: 90 RF: 2 Celexa 40 mg tablet 40 mg PO .morning Qty: 90 RF: 2 Hold Instructions: Resume on 04/07/21. alprazolam [Xanax] 1 mg tablet 1 mg PO TID PRN (Reason: anxiety) Qty: 90 RF: 3 cetirizine [Zyrtec] 10 mg Tablet 10 mg PO DAILY@23 RF: 0 amlodipine 5 mg tablet 5 mg PO DAILY@09 RF: 0 pantoprazole [Protonix] 40 mg Tablet,Delayed Release (Dr/Ec) 40 mg PO BID@, RF: 0 ondansetron HCl [Zofran] 4 mg tablet 4 mg PO Q6H PRN (Reason: nausea and vomiting) Qty: 20 RF: 0 potassium chloride [Klor-Con M20] 20 mEq tablet,ER particles/crystals 20 meq PO DAILY Qty: 30 RF: 4 hydrochlorothiazide 50 mg tablet 25 mg PO DAILY RF: 0 Discharge Orders: Discharge ED (Routine); Ordered 04/14/21 Ordered By: Frank Khan Referrals: Paulo Stevens MD [Primary Care Provider] - Discharge Diet: Advance as tolerated Discharge Activity: Resume usual activity Patient Instructions: Opioid Safety Activity Restrictions/Additional Instructions: Take medications as instructed. Follow-up with Dr. Villegas in the wound care clinic tomorrow as instructed to make sure the wound is evaluated. Continue all other home medications. Coding Level of Care Code ED Line Tender Flakeboard for Pretty Fweddie Exam Comprehensive
[2021-04-14 19:16] LABS: Basophils # 0.1 10^3/uL (0.0-0.1); Basophils % 0.6 %; Eosinophils # 0.2 10^3/uL (0.0-0.8); Eosinophils % 1.5 %; Hematocrit 41.2 % (37.0-47.0); Hemoglobin 13.4 g/dL (11.5-15.3); Lymphocytes % 15.8 %; Mean Corpuscular HGB Conc 32.5 g/dL (30.0-36.0); Mean Corpuscular Hemoglobin 30.7 pg (28.0-34.0); Mean Corpuscular Volume 94.5 fl (81-99); Mean Platelet Volume 9.1 fL (7.4-10.4); Monocytes % 7.6 %; Neutrophils # 9.18 10^3/uL (1.8-7.7); Neutrophils % 73.9 %; Nucleated Red Blood Cells % 0 %; Platelet Count 180 10^3/cmm (130-400); Red Blood Count 4.36 10^6/uL (4.1-5.3); Red Cell Distribution Width 15.4 % (12.1-15.1); White Blood Count 12.4 10^3/uL (4.0-10.0)
[2021-04-14 19:35] LABS: Alanine Aminotransferase 6 U/L (0-33); Albumin Level 3.8 g/dL (3.5-5.2); Alkaline Phosphatase 136 IU/L (35-105); Anion Gap 14.2 (5-19); Aspartate Amino Transferase 14 U/L (0-32); Blood Urea Nitrogen 15 mg/dL (6-20); Carbon Dioxide 26 mmol/L (22-29); Chloride 99 mmol/L (98-107); Globulin 3.3 g/dL (1.3-4.6); Glomerular Filtration Rate 74.7 mL/min (90-130); Glucose 84 mg/dL (65-115); Osmolality Calculated 282 mOsm/kg (285-295); Potassium 3.2 mmol/L (3.5-5.1); Sodium 136 mmol/L (136-145); Total Bilirubin 0.5 mg/dL (0.15-1.2); Total Protein 7.1 g/dL (6.6-8.7)
[2021-04-14] MEDS: vancomycin 1,000 MG in sodium chloride 0.9% 250 ML 250 MG IV (19:56)
[2021-04-14 21:18] VITALS: BP 115/61; PULSE 81; RESP 16; O2SAT 91
== END 2021-04-14 21:19 | disposition home or self-care (01) ==
PROVIDERS: Emergency Medicine; Emergency Provider Emergency Medicine; PCP Family Medicine
DX: T81.49XA Infection following a procedure, other surgical site, initial encounter (principal); J44.9 Chronic obstructive pulmonary disease, unspecified; F17.210 Nicotine dependence, cigarettes, uncomplicated
CPT/HCPCS: 74176; 80053; 85025; 87070; 87075; 87077; 87186; 87205; 96365; 99283; J3370; J7050

== ENCOUNTER 2021-04-15 10:31 | Outpatient (CLI) | payer MEDICARE, MEDICAID, SELFPAY | END 2021-04-15 10:32 | disposition home or self-care (01) | LOC: WOUND 10:33 | PROVIDERS: PCP Family Medicine; Visit Provider Surgery | DX: I96 Gangrene, not elsewhere classified (principal); L98.492 Non-pressure chronic ulcer of skin of other sites with fat layer exposed; F17.210 Nicotine dependence, cigarettes, uncomplicated | CPT/HCPCS: 11042 ==

== ENCOUNTER 2021-04-22 10:23 | Outpatient (CLI) | payer MEDICARE, MEDICAID, SELFPAY | END 2021-04-22 10:24 | disposition home or self-care (01) | LOC: WOUND 10:24 | PROVIDERS: PCP Family Medicine; Visit Provider Surgery | DX: I96 Gangrene, not elsewhere classified (principal); L98.492 Non-pressure chronic ulcer of skin of other sites with fat layer exposed; F17.210 Nicotine dependence, cigarettes, uncomplicated; E11.621 Type 2 diabetes mellitus with foot ulcer | CPT/HCPCS: 11042 ==

== ENCOUNTER 2021-04-29 10:44 | Outpatient (CLI) | payer MEDICARE, MEDICAID, SELFPAY | END 2021-04-29 10:45 | disposition home or self-care (01) | LOC: WOUND 10:45 | PROVIDERS: PCP Family Medicine; Visit Provider Emergency Medicine | DX: T81.89XA Other complications of procedures, not elsewhere classified, initial encounter (principal); Y83.8 Other surgical procedures as the cause of abnormal reaction of the patient, or of later complication, without mention of misadventure at the time of the procedure; F17.210 Nicotine dependence, cigarettes, uncomplicated | CPT/HCPCS: G0463 ==

== ENCOUNTER 2021-04-29 11:38 | Outpatient (CLI) | payer MEDICARE, MEDICAID, SELFPAY ==
--- NOTE | 2021-04-29 11:49 | CT_ITS ---
WS: [id number] CT ABDOMEN PELVIS TECHNIQUE: Noncontrast CT of the abdomen and pelvis with coronal and sagittal reformatted images. CLINICAL INFORMATION: ABSCESS COMPARISON: April 14, 2021 DLP: 1098.[address] scans at [facility] use at least one of these dose optimization techniques: automated e xposure control; mA and/or kV adjustment per patient size (includes targeted exams where dose is matc hed to clinical indication); or iterative reconstruction. FINDINGS: Again seen is the infraumbilical abdominal wall surgical incision with associated soft tissue thicken ing extending along the infraumbilical midline surgical corridor. Associated soft tissue thickening e xtends into the anterior pelvis and omentum. No evidence of drainable abscess or fluid collection. No evidence of high-grade small or large bowel obstruction. Closely abutting small bowel loops in the v entral abdomen likely due to adhesions unchanged from the prior examinations. Stable extensive aortic calcified atheromatous disease. Stable stenosis proximal iliac arteries previ ously described. Cirrhotic liver with hepatomegaly and evidence of portal venous hypertension. Spleno megaly. Upper abdominal varices. Lung bases are well aerated. Normal GE junction. Cholecystectomy cli ps. Noncontrast pancreas appears normal. Adrenal glands are normal. No hydronephrosis in either kidne y. Stable mild thickening of the sigmoid colon is unchanged. Suspect mild recurrent acute or chronic div erticulitis. No evidence of diverticular abscess or fluid collection. CT/CT abdomen pelvis wo con [id number] IMPRESSION: 1. No evidence of drainable abscess or fluid collection. 2. Stable appearing postoperative changes midline Abdominal incision with asso ciated soft tissue thickening and induration. This is unchanged from previous. 3. Adjacent small bowel loops abutting the surgical incision along the ventral abdominal wall likely due to adhesions. This is unchanged in appearance from p revious. No evidence of high-grade obstruction. 4. Sigmoid diverticulosis with mild thickening of the sigmoid colon. This is u nchanged from the recent examinations. Suspect mild recurrent acute or chronic diverticulitis 5. Hepatomegaly with cirrhosis and portal hypertension. Splenomegaly. 6. No other change from previous.
== END 2021-04-29 11:39 | disposition home or self-care (01) ==
PROVIDERS: PCP Family Medicine; Visit Provider Emergency Medicine
DX: L02.91 Cutaneous abscess, unspecified (principal); R16.0 Hepatomegaly, not elsewhere classified; K74.60 Unspecified cirrhosis of liver; K76.6 Portal hypertension; R16.1 Splenomegaly, not elsewhere classified; K57.30 Diverticulosis of large intestine without perforation or abscess without bleeding
CPT/HCPCS: 74176

== ENCOUNTER → 2021-05-05 07:26 | Outpatient (BNVA) | payer MEDICARE, MEDICAID, SELFPAY | PROVIDERS: PCP Family Medicine; Visit Provider Nurse Practitioner Psychiatric/Mental Health | DX: F33.2 Major depressive disorder, recurrent severe without psychotic features (principal); F41.1 Generalized anxiety disorder; F17.210 Nicotine dependence, cigarettes, uncomplicated | CPT/HCPCS: 99214 ==

== ENCOUNTER 2021-05-06 10:59 | Outpatient (CLI) | payer MEDICARE, MEDICAID, SELFPAY | END 2021-05-06 11:00 | disposition home or self-care (01) | LOC: WOUND 11:00 | PROVIDERS: PCP Family Medicine; Visit Provider Surgery | DX: T81.89XA Other complications of procedures, not elsewhere classified, initial encounter (principal); Y83.8 Other surgical procedures as the cause of abnormal reaction of the patient, or of later complication, without mention of misadventure at the time of the procedure; F17.210 Nicotine dependence, cigarettes, uncomplicated | CPT/HCPCS: 97597 ==

== ENCOUNTER → 2021-05-09 15:48 | Outpatient (BNVA) | payer MEDICARE, MEDICAID, SELFPAY | PROVIDERS: PCP Family Medicine; Visit Provider Internal Medicine | DX: K74.60 Unspecified cirrhosis of liver (principal); R16.0 Hepatomegaly, not elsewhere classified; K63.1 Perforation of intestine (nontraumatic) | CPT/HCPCS: 82103; 82105; 82390; 83550; 86160; 86162; 86235; 86255; 86376; 86705; 86706; 86709; 86803; 87340 ==

== ENCOUNTER 2021-05-13 10:46 | Outpatient (CLI) | payer MEDICARE, MEDICAID, SELFPAY | END 2021-05-13 10:47 | disposition home or self-care (01) | LOC: WOUND 10:48 | PROVIDERS: PCP Family Medicine; Visit Provider Surgery | DX: T81.89XA Other complications of procedures, not elsewhere classified, initial encounter (principal); Y83.8 Other surgical procedures as the cause of abnormal reaction of the patient, or of later complication, without mention of misadventure at the time of the procedure; F17.210 Nicotine dependence, cigarettes, uncomplicated | CPT/HCPCS: 11042 ==

== ENCOUNTER 2021-05-20 10:22 | Outpatient (CLI) | payer MEDICARE, MEDICAID, SELFPAY | END 2021-05-20 10:23 | disposition home or self-care (01) | LOC: WOUND 10:23 | PROVIDERS: PCP Family Medicine; Visit Provider Surgery | DX: T81.89XA Other complications of procedures, not elsewhere classified, initial encounter (principal); Y83.8 Other surgical procedures as the cause of abnormal reaction of the patient, or of later complication, without mention of misadventure at the time of the procedure; F17.210 Nicotine dependence, cigarettes, uncomplicated | CPT/HCPCS: 11042 ==

== ENCOUNTER 2021-05-27 10:54 | Outpatient (CLI) | payer MEDICARE, MEDICAID, SELFPAY | END 2021-05-27 10:55 | disposition home or self-care (01) | LOC: WOUND 10:55 | PROVIDERS: PCP Family Medicine; Visit Provider Nurse Practitioner Family | DX: T81.89XA Other complications of procedures, not elsewhere classified, initial encounter (principal); Y83.8 Other surgical procedures as the cause of abnormal reaction of the patient, or of later complication, without mention of misadventure at the time of the procedure; F17.210 Nicotine dependence, cigarettes, uncomplicated | CPT/HCPCS: 11042 ==

== ENCOUNTER 2021-06-03 11:12 | Outpatient (CLI) | payer MEDICARE, MEDICAID, SELFPAY | END 2021-06-03 11:13 | disposition home or self-care (01) | LOC: WOUND 11:16 | PROVIDERS: PCP Family Medicine; Visit Provider Surgery | DX: T81.89XA Other complications of procedures, not elsewhere classified, initial encounter (principal); Y83.8 Other surgical procedures as the cause of abnormal reaction of the patient, or of later complication, without mention of misadventure at the time of the procedure; F17.210 Nicotine dependence, cigarettes, uncomplicated; I10 Essential (primary) hypertension | CPT/HCPCS: 11042 ==

== ENCOUNTER → 2021-06-09 07:00 | Outpatient (BNVA) | payer MEDICARE, MEDICAID, SELFPAY | PROVIDERS: PCP Family Medicine; Visit Provider Nurse Practitioner Psychiatric/Mental Health | DX: F33.2 Major depressive disorder, recurrent severe without psychotic features (principal); F41.1 Generalized anxiety disorder; F17.211 Nicotine dependence, cigarettes, in remission | CPT/HCPCS: 99214 ==

== ENCOUNTER 2021-06-10 11:10 | Outpatient (CLI) | payer MEDICARE, MEDICAID, SELFPAY | END 2021-06-10 11:11 | disposition home or self-care (01) | LOC: WOUND 11:12 | PROVIDERS: PCP Family Medicine; Visit Provider Nurse Practitioner Family | DX: T81.89XA Other complications of procedures, not elsewhere classified, initial encounter (principal); Y83.8 Other surgical procedures as the cause of abnormal reaction of the patient, or of later complication, without mention of misadventure at the time of the procedure; F17.210 Nicotine dependence, cigarettes, uncomplicated | CPT/HCPCS: 11042 ==

== ENCOUNTER 2021-06-13 09:13 | Outpatient (CLI) | payer MEDICARE, MEDICAID, SELFPAY | END 2021-06-13 09:14 | disposition home or self-care (01) | PROVIDERS: PCP Family Medicine; Visit Provider Emergency Medicine | DX: T81.89XA Other complications of procedures, not elsewhere classified, initial encounter (principal); Y83.8 Other surgical procedures as the cause of abnormal reaction of the patient, or of later complication, without mention of misadventure at the time of the procedure; T81.31XS Disruption of external operation (surgical) wound, not elsewhere classified, sequela | CPT/HCPCS: 76882; 87070; 87075; 87077; 87186; 87205; G0463 ==

== ENCOUNTER 2021-06-13 11:43 | Outpatient (CLI) | payer MEDICARE, MEDICAID, SELFPAY ==
--- NOTE | 2021-06-13 11:48 | US_ITS ---
WS: [id number] INDICATION: Umbilical hernia repair TECHNIQUE: Ultrasound umbilical hernia repair site FINDINGS: Prior postoperative changes umbilical hernia repair. Tiny amount of fluid and soft tissue t hickening along the surgical site. Tiny amount of fluid measures 4.1 x 2.6 mm. Fluid has a simple porter earance. Surrounding soft tissue thickening likely postoperative. No evidence of drainable abscess or drainable fluid collection. US/US soft tissue/extremity [id number] IMPRESSION: Tiny amount of simple fluid along the umbilical hernia repair measu res 4.1 x 2.6 mm. No drainable abscess or drainable fluid collection. Notified at 06/13/2021 12:14 PM.
== END 2021-06-13 11:44 | disposition home or self-care (01) ==
LOC: RAD 11:45
PROVIDERS: PCP Family Medicine; Visit Provider Emergency Medicine
DX: T81.31XS Disruption of external operation (surgical) wound, not elsewhere classified, sequela (principal)
CPT/HCPCS: 76882

== ENCOUNTER 2021-06-17 10:54 | Outpatient (CLI) | payer MEDICARE, MEDICAID, SELFPAY | END 2021-06-17 10:55 | disposition home or self-care (01) | LOC: WOUND 10:56 | PROVIDERS: PCP Family Medicine; Visit Provider Surgery | DX: T81.89XA Other complications of procedures, not elsewhere classified, initial encounter (principal); Y83.8 Other surgical procedures as the cause of abnormal reaction of the patient, or of later complication, without mention of misadventure at the time of the procedure; F17.210 Nicotine dependence, cigarettes, uncomplicated | CPT/HCPCS: 11042 ==

== ENCOUNTER 2021-06-23 18:04 | Emergency (ER) | payer MEDICARE, MEDICAID, SELFPAY ==
[2021-06-23 19:05] VITALS: BP 122/80; PULSE 91; RESP 18; TEMP 36.2; O2SAT 97; BMI 34.0
--- NOTE | 2021-06-23 19:11 | XRR_ITS ---
PROCEDURE INFORMATION: Exam: XR Right Foot Exam date and time: 06/23/2021 7:11 PM Age: 55 years old Clinical indication: Injury or trauma; Fall; Swelling (edema); Foot; Right TECHNIQUE: Imaging protocol: XR Right foot. Views: 3 or more views. COMPARISON: US soft tissue/extremity [id number] 06/13/2021 11:57 AM FINDINGS: Bones/joints: Fracture in the 5th toe proximal phalanx. No displacement. No angulation deformity. Transverse fracture across the proximal metaphysis of the proximal phalanx. Joint spaces are unremarkable. No significant joint space arthritis. Soft tissues: Mild dorsal side soft tissue edema of the midfoot and forefoot. XR/XR foot RT min 3V* [id number] IMPRESSION: Acute fracture of the 5th digit proximal phalanx without displacement. Radiation Dose CTDIVOL = (mGy): DLP = (mGy-cm)
--- NOTE | 2021-06-23 19:31 | ED_ITS ---
HPI - Extremity Problem General: Chief complaint: Extremity Injury, Lower Stated complaint: R FOOT PAIN/SWELLING Time Seen by Provider: 06/23/21 19:25 History of Present Illness: HPI Narrative: Patient is a 55-year-old female comes to the ED with right foot pain and swelling. Patient injured right foot 2 days ago. She says she accidentally kicked the bottom of a door with her right foot. She is now having pain over the lateral midfoot region of her right foot. Says it hurts whenever she puts any weight on her foot. She describes the pain as throbbing and she rates it a 5 out of 10. Associated symptoms: Deny chest pain, fever(s) or rash Review of Systems Const: Denies: fever(s), chills or fatigue Eyes: Denies: change in vision or eye discomfort ENMT: Denies: throat pain, odynophagia, nasal discharge or nasal congestion Card: Denies: chest pain, palpitations, edema, swelling of feet/ankles, dyspnea on exertion or orthopnea Resp: Denies: dyspnea, productive cough or non-productive cough GI: Denies: abdominal pain, nausea, vomiting, diarrhea, constipation or hematochezia : Denies: flank pain, dysuria or hematuria Musc: Reports: extremity pain (right foot) and extremity swelling (right foot); Denies: neck pain or back pain Skin/Breast: Denies: rash or new lesions Neuro: Denies: headache(s), numbness in extremities or weakness in extremities PFSH ED PFSH: Medical History Abdominal wall abscess at site of surgical wound Acute kidney injury Bowel perforation COPD (chronic obstructive pulmonary disease) Generalized anxiety disorder HTN (hypertension) Hyperlipidemia Hypokalemia 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, recurrent severe without psychotic features Nicotine dependence, cigarettes, in remission PAD (peripheral artery disease) Peritonitis (acute) generalized Pneumonia Psychiatric care Rhabdomyolysis Sepsis Septic shock Shock liver Surgical History H/O drainage of abscess (~12/13/20) Intra-abdominal H/O exploratory laparotomy drainage of intra abdominal abscess H/O of hysterectomy with bilateral oophorectomy Status post exploratory laparotomy Family History Mother CHF (congestive heart failure) Social History Smoking and tobacco status: never smoked (Quit 3 weeks, 3 days ago) Alcohol intake: current Alcohol intake frequency: few times a month Household members: family Marital status: Current occupational status: unemployed History of recent travel: No Physical Exam Const: COMMON NORMALS: no acute distress, patient oriented x3 and alert GENERAL APPEARANCE: cooperative and comfortable HENMT: COMMON NORMALS: normocephalic HEAD & SCALP: normocephalic MOUTH: Normal oral and palatal mucosa present THROAT: posterior oropharynx normal and uvula midline Neck/C-Spine: COMMON NORMALS: supple GENERAL: Yes normal visual inspection Resp: COMMON NORMALS: normal respiratory effort, No retractions, No use of accessory muscles and clear to auscultation bilaterally AUSCULTATION: clear to auscultation bilaterally Cardio: COMMON NORMALS: regular rate, regular rhythm, S1 normal heart sound present, S2 normal heart sound present, No gallops present (Cardio), No clicks present (Cardio), No murmurs present (Cardio) and Peripheral pulses 2+ throughout RATE: regular rate RHYTHM: regular rhythm HEART SOUNDS: S1 n ormal heart sound present and S2 normal heart sound present PERIPHERAL PULSES: Peripheral pulses 2+ throughout GI: COMMON NORMALS: Normal to inspection, nondistended, normoactive bowel sounds present, Soft to palpation, non-tender and no masses PALPATION: Yes Soft to palpation : COMMON NORMALS: Yes no CVA tenderness BLADDER/KIDNEY EXAM: Yes no CVA tenderness Back/Pelvis: COMMON NORMALS: no CVA tenderness Extremity: GENERAL: Yes normal exam except as noted RIGHT LOWER EXTREMITY: Yes foot & digits Right foot and digits: Yes inspection (Swelling noted around midfoot. Ecchymosis tip of fourth digit), Yes palpation (Tenderness over lateral midfoot region and distal end of 4th digit), Yes ROM (Pain with flexion of fourth and fifth digit) and Yes neurovascular exam (Intact) Neuro: COMMON NORMALS: patient oriented x3 and moves all extremities SENSORIUM/ORIENTATION: Yes alert Skin: GENERAL SKIN EXAM: dry skin Course Vital Signs: Vital signs: Vital Signs Temperature 97.2 F L 06/23/21 19:05 Pulse Rate 91 06/23/21 19:05 Respiratory Rate 18 06/23/21 19:05 Blood Pressure 122/80 06/23/21 19:05 Pulse Oximetry 97 06/23/21 19:05 MDM - Extremity (Nontraumatic) MDM Narrative: Medical decision making narrative: Patient is a 55-year-old female comes to the ED with right foot injury. She is having pain in her right foot around her fourth and fifth digits. Exam shows patient neurovascular tact with some ecchymosis noted at the distal end of fourth digit and some swelling noted around the lateral midfoot region. X-ray right foot showed nondisplaced distal phalange fracture of the fourth digit and a nondisplaced proximal phalange fracture of the fifth digit. Patient was given some crutches and put in a stiff soled shoe. She was discharged home with a prescription for hydrocodone. I placed order with case management for patient to get follow-up with Dr. Espinal the freight car inspector to reevaluate and manage multiple fractures in patient's foot. Return to ED precautions given. Patient understood and agree with plan. Imaging Data^: Xray Ortho: Attestation: I personally reviewed and interpreted this imaging study as follows: My impression: Right foot x-ray. Nondisplaced fracture at head of proximal phalange of 5th digit. Also nondisplaced distal phalange fracture of fourth digit. Discharge Plan Discharge Patient Disposition: Home Clinical Impression: Closed fracture of distal phalanx of toe of right foot, Closed fracture of proximal phalanx of toe of right foot Condition: Stable Prescriptions: No Action gemfibrozil 600 mg tablet 600 mg PO BID@,17 RF: 0 atorvastatin 10 mg tablet 10 mg PO DAILY RF: 0 potassium chloride [Klor-Con M20] 20 mEq tablet,ER particles/crystals 40 meq PO DAILY RF: 0 valsartan 80 mg tablet 80 mg PO DAILY@09 RF: 0 baclofen 10 mg tablet 10 mg PO TID PRN (Reason: Spasms) RF: 0 amitriptyline 25 mg tablet 25 mg PO BEDTIME Qty: 90 RF: 2 Celexa 40 mg tablet 40 mg PO .morning Qty: 90 RF: 2 Hold Instructions: Resume on 04/07/21. alprazolam [Xanax] 1 mg tablet 1 mg PO TID PRN (Reason: anxiety) Qty: 90 RF: 3 cetirizine [Zyrtec] 10 mg Tablet 10 mg PO DAILY@ RF: 0 amlodipine 5 mg tablet 5 mg PO DAILY@ RF: 0 pantoprazole [Protonix] 40 mg Tablet,Delayed Release (Dr/Ec) 40 mg PO BID@ RF: 0 ondansetron HCl [Zofran] 4 mg tablet 4 mg PO Q6H PRN (Reason: nausea and vomiting) Qty: 20 RF: 0 hydrochlorothiazide 50 mg tablet 25 mg PO DAILY RF: 0 Discharge Orders: Discharge ED (Routine); Ordered 06/23/21 Ordered By: Herminio Benavidez Referrals: Paulo Stevens MD [Primary Care Provider] - Discharge Diet: Regular Discharge Activity: Limit activity as instructed and Use walker/crutches as instructed Patient Instructions: Toe Fracture (ED), Opioid Safety Activity Restrictions/Additional Instructions: Follow-up with medical provider as directed. Case management will be contacting you in the next several days set up an appointment with Dr. Espinal the freight car inspector for further evaluation and management of fractures. Take medications as prescribed. Limit activity and wear stiff soled shoe when ambulating. You can use crutches as well to help with ambulation. Return to the ER or your medical provider if condition worsens. Please read and understand discharge instructions. Thank you for choosing [facility] for your healthcare needs today. Please realize this is an emergency room and that we are providing you with a medical screening exam and this may not be complete and all inclusive of all the testing and or work up that you may need to determine your ailment or severity of your illness. It is very important that you follow up as instructed or that you return to the Emergency Department should you have concerns or if your condition changes or worsens in any way. Coding Level of Care Code ED Property Disposal Manager for Pretty Fweddie Exam Comprehensive
[2021-06-23] MEDS: HYDROcodone-acetaminophen 5-325 mg Tablet 1 TAB PO (19:51)
[2021-06-23 20:06] VITALS: RESP 16
--- NOTE | 2021-06-24 09:31 | DCPLANNER ---
manager action had message to schedule a follow up appointment for patient with ortho. manager action called the ortho clinic, spoke with Annabel, gave clinic patients information. manager action was told that patients information would be printed and reviewed. Clinic will call patient with appointment information.
--- NOTE | 2021-06-30 14:42 | DCPLANNER ---
Patient has a follow up appointment scheduled for Thursday, July 01, 2021 at 2:[address] Espinal. Clinic will call patient with appointment information.
--- NOTE | 2021-07-07 13:47 | DCPLANNER ---
Patient had a follow up appointment scheduled for 07.01.[address] Espinal at [facility] - patient did attend appointment.
== END 2021-06-23 20:00 | disposition home or self-care (01) ==
PROVIDERS: Emergency Provider Physician Assistant; PCP Family Medicine
DX: S92.911A Unspecified fracture of right toe(s), initial encounter for closed fracture (principal); Z87.891 Personal history of nicotine dependence; J44.9 Chronic obstructive pulmonary disease, unspecified; F41.9 Anxiety disorder, unspecified; F32.9 Major depressive disorder, single episode, unspecified
CPT/HCPCS: 73630; 99283; E0114

== ENCOUNTER 2021-06-24 10:04 | Outpatient (CLI) | payer MEDICARE, MEDICAID, SELFPAY | END 2021-06-24 10:05 | disposition home or self-care (01) | LOC: WOUND 10:05 | PROVIDERS: PCP Family Medicine; Visit Provider Surgery | DX: T81.89XA Other complications of procedures, not elsewhere classified, initial encounter (principal); Y83.8 Other surgical procedures as the cause of abnormal reaction of the patient, or of later complication, without mention of misadventure at the time of the procedure; F17.210 Nicotine dependence, cigarettes, uncomplicated; I10 Essential (primary) hypertension | CPT/HCPCS: 11042 ==

== ENCOUNTER 2021-07-01 10:35 | Outpatient (CLI) | payer MEDICARE, MEDICAID, SELFPAY | END 2021-07-01 10:36 | disposition home or self-care (01) | LOC: WOUND 10:37 | PROVIDERS: PCP Family Medicine; Visit Provider Surgery | DX: T81.89XA Other complications of procedures, not elsewhere classified, initial encounter (principal); Y83.8 Other surgical procedures as the cause of abnormal reaction of the patient, or of later complication, without mention of misadventure at the time of the procedure; F17.210 Nicotine dependence, cigarettes, uncomplicated | CPT/HCPCS: 11043; 73630 ==

== ENCOUNTER → 2021-07-04 10:57 | Outpatient (BNVA) | payer MEDICARE, MEDICAID, SELFPAY | PROVIDERS: PCP Family Medicine; Visit Provider Surgery | DX: Z20.822 Contact with and (suspected) exposure to COVID-19 (principal) | CPT/HCPCS: 87635 ==

== ENCOUNTER 2021-07-08 05:59 | Day surgery (SDC) | payer MEDICARE, MEDICAID, SELFPAY ==
[2021-07-04 14:09] VITALS: BMI 34.0
[2021-07-08 06:24] VITALS: BP 113/66; PULSE 84; RESP 16; TEMP 36.2; O2SAT 95
--- NOTE | 2021-07-08 06:29 | W.PM.OPSFHP ---
Same Day Surgery H&P Indication for Procedure/HPI DATE OF PROCEDURE: July 08, 2021 CHIEF COMPLAINT/INDICATIONFOR SURGICAL PROCEDURE: I am here for colonoscopy PREOP DIAGNOSIS: DIAGNOSTIC colonoscopy PLANNED PROCEDRUE: Operation Date: 07/08/21 07:00 Proposed Procedures p Colonoscopy 31254 K29.90(Not Applicable) - Toño Villegas MD This is a pleasant 55 years old female patient with complicated surgical history as patient did have an expiratory laparotomy for generalized peritonitis and the source of perforation was not revealed at that time likely a perforated sigmoid diverticulitis, the pelvis at that time was frozen and patient subsequently healed yet she did develop chronic discharging sinus from her abdominal wound that would intermittently discharge pus encloses and so forth. The patient does complain of history of abdominal pain and she did have a colonoscopy before few years and polyps were removed. Patient comes today for diagnostic colonoscopy and in preparation for potential surgical intervention to address the chronic discharging sinus of her abdominal wall wound. ROS All systems have been reviewed negative except as per the above or per problem list Medications/Allergies* Home Medications Medication Instructions Recorded Confirmed Type valsartan 80 mg tablet 80 mg PO DAILY@09/17/19 07/08/21 History baclofen 10 mg tablet 10 mg PO TID PRN 11/25/19 07/08/21 History amlodipine 5 mg PO DAILY@12/13/20 07/08/21 History cetirizine [Zyrtec] 10 mg PO DAILY@12/13/20 07/08/21 History pantoprazole [Protonix] 40 mg PO BID@12/13/20 07/08/21 History atorvastatin 10 mg tablet 10 mg PO DAILY 02/01/21 07/08/21 History hydrochlorothiazide 50 mg tablet 25 mg PO DAILY tab 03/30/21 07/08/21 History potassium chloride 20 mEq 40 meq PO DAILY tab 05/25/21 07/08/21 History tablet,extended release(part/cryst) Allergies/Adverse Reactions Allergy/AdvReac Type Severity Reaction Status Date / Time amoxicillin Allergy Severe ALGY-Rash Verified 07/08/21 06:31 codeine Allergy Unknown rash, Verified 07/08/21 06:31 itching Penicillins Allergy Unknown rash, Verified 07/08/21 06:31 itching Sulfa (Sulfonamide Allergy Unknown rash, Verified 11/12/21 06:31 Antibiotics) itching Iodinated Contrast Media Allergy Unknown Verified 07/08/21 06:31 Pertinent History/Comorbid Conditions* Medical History (Updated 07/05/21 @ 20:30 by Camron Espinal DPM) Abdominal wall abscess at site of surgical wound Acute kidney injury Bowel perforation COPD (chronic obstructive pulmonary disease) Generalized anxiety disorder HTN (hypertension) Hyperlipidemia Hypokalemia 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, recurrent severe without psychotic features Nicotine dependence, cigarettes, in remission PAD (peripheral artery disease) Peritonitis (acute) generalized Pneumonia Psychiatric care Rhabdomyolysis Sepsis Septic shock Shock liver Surgical History (Updated 02/07/21 @ 00:01 by ) H/O drainage of abscess (~12/13/20) Intra-abdominal H/O exploratory laparotomy drainage of intra abdominal abscess H/O of hysterectomy with bilateral oophorectomy Status post exploratory laparotomy Family History (Updated 09/24/19 @ 14:46 by Deborah Rousseau LPN) CHF (congestive heart failure) Mother Social History Alcohol intake: current Alcohol intake frequency: few times a month Household members: family Marital status: Current occupational status: unemployed History of recent travel: No Pertinent Exam Findings alert, oriented x 3, clear to auscultation bilaterally, regular rate & rhythm and procedure specific exam findings (Abdominal examination nontender nondistended dressing in place) Recommendations Surgery/Procedure today (Colonoscopy with possible biopsy) Other Plans: Plan of care; After thorough history and physical examination and reviewing the chart, plan to perform diagnostic colonoscopy. I discussed with the patient in details the risks,benefits,alternatives and indications.The risk of aspiration, bleeding, soft tissue injury, perforation of the colon and other potential concomitant complications were explained to the patient in details,also the potential need for Laproscoy/Laparotomy to repair any related complications including but not limited to colectomy and or Closotomy.The patient understood this well and did agree to proceed. Rationale was carefully and clearly discussed with the patient.Appropriate informed consent have been reviewed and signed All questions have been answered and all concerns have been addressed to patient's satisfaction. Verbal and written Instructions were given to the patient for colonoscopy prep Coding Level of Care Code Acute Cordage Sales Representative for Pretty Waggoner
[2021-07-08] MEDS: sodium chloride 0.9% 1,000 ML 30 ML IV (06:35)
--- NOTE | 2021-07-08 06:57 | ANES.PREANE2 ---
Pre-Anesthetic Assessment Pre-Anesthetic Assessment: Height/Weight: Height 1.55 m Weight 81.647 kg Temp Pulse Resp BP Pulse Ox 97.2 F L 84 16 113/66 95 07/08/21 06:24 07/08/21 06:24 07/08/21 06:24 07/08/21 06:24 07/08/21 06:24 Preop Diagnosis: DIAGNOSTIC colonoscopy Proposed Procedure: Operation Date: 07/08/21 07:00 Proposed Procedures p Colonoscopy 02564 K29.90(Not Applicable) - Toño Villegas MD Familial anesthetic complications: none Was Clonidine taken within 24 hours: N/A Last intake: Intake Last Liquid Date 07/07/21 Last Liquid Time 22:30 Last Solid Date 07/06/21 Last Solid Time 00:00 Social: Social History: Alcohol and Tobacco (hx. quit 5 weeks ago) Exam: Pre-Anes Outpt Exam: alert, oriented x 3, clear to auscultation bilaterally and regular rate & rhythm Airway: Submandibular: WNL Cervical ROM: WNL MP: 2 Dentition: Full Pulmonary: Pulmonary: COPD CV/HEM: CV/HEM: HTN and PVD : Comments: history of sepsis with kidney involvement but has resolved Hepatic: Hepatic: None reported GI: GI: GERD (controlled) Metabolic: Metabolic: Hyperlipidemia Musc/skel: Musc/skel: Lower Back Pain and Weakness Neuropsych: Neuropsych: Anxiety, Depression and DUENAS Anesthetic Plan: ASA status: 3 Anesthesia: MAC Risk of > 500 ml blood loss (7ml/kg in children): No Meds/Allergies Current Medications: Current Medications Generic Name Dose Route Start Last Admin Trade Name Freq PRN Reason Stop Dose Admin Sodium Chloride 1,000 mls @ 30 ml s/hr 07/08/21 06:15 07/08/21 06:35 Sodium Chloride 0.9% IV 07/09/21 06:14 30 mls/hr .Q24H BRITTNEY Administration PFSH Anesthesia PFSH: Medical History Abdominal wall abscess at site of surgical wound Acute kidney injury Bowel perforation COPD (chronic obstructive pulmonary disease) Generalized anxiety disorder HTN (hypertension) Hyperlipidemia Hypokalemia 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, recurrent severe without psychotic features Nicotine dependence, cigarettes, in remission PAD (peripheral artery disease) Peritonitis (acute) generalized Pneumonia Psychiatric care Rhabdomyolysis Sepsis Septic shock Shock liver Surgical History H/O drainage of abscess (~12/13/20) Intra-abdominal H/O exploratory laparotomy drainage of intra abdominal abscess H/O of hysterectomy with bilateral oophorectomy Status post exploratory laparotomy Family History Mother CHF (congestive heart failure) Social History Alcohol intake: current Alcohol intake frequency: few times a month Household members: family Marital status: Current occupational status: unemployed History of recent travel: No Data Anesthesia Cardiac Studies: No Data to Display
--- NOTE | 2021-07-08 07:40 | ANE.PACU2 ---
Inpatient post-anesthesia follow up: Airway intact: Yes Vital signs: Temperature 97.2 F Pulse Rate 84 Respiratory Rate 16 Blood Pressure 113/66 Pulse Oximetry 95 Oxygen Delivery Me thod Room Air Oxygen Flow Rate Fraction of Inspir ed Oxygen Hydration adequate: Yes Nausea and vomiting: No Pain level: 1 Mental status: Baseline
[2021-07-08 07:44] VITALS: BP 98/64; PULSE 89; RESP 16; TEMP 36.7; O2SAT 91
[2021-07-08 07:50] VITALS: BP 104/81; PULSE 79; RESP 16; O2SAT 92
== END 2021-07-08 08:08 | disposition home or self-care (01) ==
PROVIDERS: PCP Family Medicine; Visit Provider Surgery
PROC: 0DJD8ZZ Inspection of Lower Intestinal Tract, Via Natural or Artificial Opening Endoscopic (ICD-10-PCS; CPT 45330; principal; 2021-07-08 07:00)
PROC: 0DJD8ZZ Inspection of Lower Intestinal Tract, Via Natural or Artificial Opening Endoscopic (ICD-10-PCS; CPT 45378; 2021-07-08 07:00)
DX: Z01.818 Encounter for other preprocedural examination (principal); R10.84 Generalized abdominal pain; Z86.010 Personal history of colon polyps; K57.30 Diverticulosis of large intestine without perforation or abscess without bleeding; Z87.891 Personal history of nicotine dependence; J44.9 Chronic obstructive pulmonary disease, unspecified; I10 Essential (primary) hypertension; I73.9 Peripheral vascular disease, unspecified; E78.5 Hyperlipidemia, unspecified; K21.9 Gastro-esophageal reflux disease without esophagitis
CPT/HCPCS: 45331; 88305; 96360; J2704; J7030

== ENCOUNTER 2021-07-12 10:55 | Outpatient (CLI) | payer MEDICARE, MEDICAID, SELFPAY | END 2021-07-12 10:56 | disposition home or self-care (01) | LOC: WOUND 10:56 | PROVIDERS: PCP Family Medicine; Visit Provider Emergency Medicine | DX: T81.89XA Other complications of procedures, not elsewhere classified, initial encounter (principal); Y83.8 Other surgical procedures as the cause of abnormal reaction of the patient, or of later complication, without mention of misadventure at the time of the procedure; F17.210 Nicotine dependence, cigarettes, uncomplicated; I10 Essential (primary) hypertension | CPT/HCPCS: 11042; 87070; 99212 ==

== ENCOUNTER 2021-07-15 10:13 | Outpatient (CLI) | payer MEDICARE, MEDICAID, SELFPAY | END 2021-07-15 10:14 | disposition home or self-care (01) | LOC: WOUND 10:14 | PROVIDERS: PCP Family Medicine; Visit Provider Surgery | DX: T81.89XA Other complications of procedures, not elsewhere classified, initial encounter (principal); Y83.8 Other surgical procedures as the cause of abnormal reaction of the patient, or of later complication, without mention of misadventure at the time of the procedure; I10 Essential (primary) hypertension; F17.210 Nicotine dependence, cigarettes, uncomplicated | CPT/HCPCS: 11042 ==

== ENCOUNTER → 2021-07-18 07:10 | Outpatient (BNVA) | payer MEDICARE, MEDICAID, SELFPAY | PROVIDERS: PCP Family Medicine; Visit Provider Nurse Practitioner Psychiatric/Mental Health | DX: F33.2 Major depressive disorder, recurrent severe without psychotic features (principal); F41.1 Generalized anxiety disorder; F17.211 Nicotine dependence, cigarettes, in remission | CPT/HCPCS: 99214 ==

== ENCOUNTER 2021-07-26 10:16 | Outpatient (CLI) | payer MEDICARE, MEDICAID, SELFPAY ==
--- NOTE | 2021-07-26 10:28 | FL_ITS ---
WS: [id number] Barium Enema TECHNICAL: Single contrast barium enema. Patient could not tolerate air. FLUOROSCOPY TIME: 8.3 minutes CLINICAL INFORMATION: K57.90 - Diverticulosis of intestine, part unspecified, w... COMPARISON: CT April 29, 2020 FINDINGS: Marked distention and tortuosity of the distal sigmoid colon with proximal partially obstru cting luminal narrowing and mucosal irregularity in the area previously described on the CT. Strictur e segment and irregularity extends over approximately 8 cm. Delayed transition of contrast beyond th e stricture. After several minutes contrast past the area of stenosis into the left colon. Normal left colon and s plenic flexure. Contrast traverses into the mid transverse colon. Contrast did not reach the hepatic flexure or cecum. Sufficient barium inflow could not be achieved to reach the right colon. FL/FL barium enema [id number] IMPRESSION: 1. Marked distention of the distal sigmoid colon with tortuosity and moderate to severe stricture extending over approximately 8 cm with mucosal irregularity . This corresponds to the area of suspected diverticulitis on the prior CT Sept ember 2020. This may represent chronic stricture from diverticulitis howeve r Neoplasm should be excluded considering persistence. Consider further evaluat ion with contrast-enhanced CT abdomen pelvis and/or sigmoidoscopy with biopsy 2. The left colon and splenic flexure are normal in appearance. Barium only re aches the mid transverse colon after several minutes. Hepatic flexure, right as cending colon, and cecum not evaluated. Recommend follow-up colonoscopy/barium enema screening after stricture evaluation/treatment 3. Cholecystectomy.
== END 2021-07-26 10:17 | disposition home or self-care (01) ==
LOC: RAD 10:18
PROVIDERS: PCP Family Medicine; Visit Provider Surgery
DX: K57.90 Diverticulosis of intestine, part unspecified, without perforation or abscess without bleeding (principal); Z90.49 Acquired absence of other specified parts of digestive tract
CPT/HCPCS: 74270; 74280

== ENCOUNTER 2021-07-29 10:29 | Outpatient (CLI) | payer MEDICARE, MEDICAID, SELFPAY | END 2021-07-29 10:30 | disposition home or self-care (01) | LOC: WOUND 10:30 | PROVIDERS: PCP Family Medicine; Visit Provider Surgery | DX: T81.89XA Other complications of procedures, not elsewhere classified, initial encounter (principal); Y83.8 Other surgical procedures as the cause of abnormal reaction of the patient, or of later complication, without mention of misadventure at the time of the procedure; F17.210 Nicotine dependence, cigarettes, uncomplicated; I10 Essential (primary) hypertension | CPT/HCPCS: 11042 ==

== ENCOUNTER 2021-08-05 08:55 | Outpatient (CLI) | payer MEDICARE, MEDICAID, SELFPAY | END 2021-08-05 08:56 | disposition home or self-care (01) | LOC: WOUND 08:56 | PROVIDERS: PCP Family Medicine; Visit Provider Nurse Practitioner Family | DX: T81.89XA Other complications of procedures, not elsewhere classified, initial encounter (principal); Y83.8 Other surgical procedures as the cause of abnormal reaction of the patient, or of later complication, without mention of misadventure at the time of the procedure; F17.210 Nicotine dependence, cigarettes, uncomplicated; I10 Essential (primary) hypertension | CPT/HCPCS: 11042 ==

== ENCOUNTER 2021-08-12 08:53 | Outpatient (CLI) | payer MEDICARE, MEDICAID, SELFPAY | END 2021-08-12 08:54 | disposition home or self-care (01) | LOC: WOUND 08:55 | PROVIDERS: PCP Family Medicine; Visit Provider Surgery | DX: T81.89XA Other complications of procedures, not elsewhere classified, initial encounter (principal); Y83.8 Other surgical procedures as the cause of abnormal reaction of the patient, or of later complication, without mention of misadventure at the time of the procedure; F17.210 Nicotine dependence, cigarettes, uncomplicated | CPT/HCPCS: 11042 ==

== ENCOUNTER → 2021-08-24 09:27 | Outpatient (BNVA) | payer MEDICARE, MEDICAID, SELFPAY | PROVIDERS: PCP Family Medicine; Visit Provider Podiatrist Foot & Ankle Surgery | DX: S92.511A Displaced fracture of proximal phalanx of right lesser toe(s), initial encounter for closed fracture (principal); X58.XXXA Exposure to other specified factors, initial encounter | CPT/HCPCS: 73630 ==

== ENCOUNTER 2021-08-25 14:22 | Outpatient (CLI) | payer MEDICARE, MEDICAID, SELFPAY | END 2021-08-25 14:23 | disposition home or self-care (01) | LOC: WOUND 14:23 | PROVIDERS: PCP Family Medicine; Visit Provider Nurse Practitioner Family | DX: T81.89XA Other complications of procedures, not elsewhere classified, initial encounter (principal); Y83.8 Other surgical procedures as the cause of abnormal reaction of the patient, or of later complication, without mention of misadventure at the time of the procedure; F17.210 Nicotine dependence, cigarettes, uncomplicated | CPT/HCPCS: 99212 ==

== ENCOUNTER 2021-09-02 09:31 | Outpatient (CLI) | payer MEDICARE, MEDICAID, SELFPAY | END 2021-09-02 09:32 | disposition home or self-care (01) | LOC: WOUND 09:35 | PROVIDERS: PCP Family Medicine; Visit Provider Surgery | DX: T81.89XA Other complications of procedures, not elsewhere classified, initial encounter (principal); Y83.8 Other surgical procedures as the cause of abnormal reaction of the patient, or of later complication, without mention of misadventure at the time of the procedure; F17.210 Nicotine dependence, cigarettes, uncomplicated; I10 Essential (primary) hypertension | CPT/HCPCS: 11042 ==

== ENCOUNTER 2021-09-09 09:10 | Outpatient (CLI) | payer MEDICARE, MEDICAID, SELFPAY | END 2021-09-09 09:11 | disposition home or self-care (01) | LOC: WOUND 09:11 | PROVIDERS: PCP Family Medicine; Visit Provider Surgery | DX: T81.89XA Other complications of procedures, not elsewhere classified, initial encounter (principal); Y83.8 Other surgical procedures as the cause of abnormal reaction of the patient, or of later complication, without mention of misadventure at the time of the procedure; F17.210 Nicotine dependence, cigarettes, uncomplicated | CPT/HCPCS: 10060; 11042; 87070; 87077; 87186 ==

== ENCOUNTER → 2021-09-14 07:45 | Outpatient (BNVA) | payer MEDICARE, MEDICAID, SELFPAY | PROVIDERS: PCP Family Medicine; Visit Provider Nurse Practitioner Psychiatric/Mental Health | DX: F33.2 Major depressive disorder, recurrent severe without psychotic features (principal); F41.1 Generalized anxiety disorder; F17.210 Nicotine dependence, cigarettes, uncomplicated | CPT/HCPCS: 99214 ==

== ENCOUNTER 2021-09-16 08:50 | Outpatient (CLI) | payer MEDICARE, MEDICAID, SELFPAY | END 2021-09-16 08:51 | disposition home or self-care (01) | LOC: WOUND 08:51 | PROVIDERS: PCP Family Medicine; Visit Provider Nurse Practitioner Family | DX: I96 Gangrene, not elsewhere classified (principal); T81.89XA Other complications of procedures, not elsewhere classified, initial encounter; Y83.8 Other surgical procedures as the cause of abnormal reaction of the patient, or of later complication, without mention of misadventure at the time of the procedure; F17.210 Nicotine dependence, cigarettes, uncomplicated; I10 Essential (primary) hypertension | CPT/HCPCS: 11042 ==

== ENCOUNTER 2021-09-27 16:09 | Emergency (ER) | payer MEDICARE, MEDICAID, SELFPAY ==
[2021-09-27 16:22] VITALS: BP 100/66; PULSE 78; RESP 16; TEMP 36.6; O2SAT 96
== END 2021-09-27 18:00 | disposition left against medical advice (07) ==
PROVIDERS: Emergency Provider Family Medicine; PCP Family Medicine
DX: Z53.21 Procedure and treatment not carried out due to patient leaving prior to being seen by health care provider (principal)
CPT/HCPCS: 99281

== ENCOUNTER → 2021-09-28 11:50 | Outpatient (BNVA) | payer MEDICARE, MEDICAID, SELFPAY | PROVIDERS: PCP Family Medicine; Visit Provider Surgery | DX: S31.109A Unspecified open wound of abdominal wall, unspecified quadrant without penetration into peritoneal cavity, initial encounter (principal); Z20.822 Contact with and (suspected) exposure to COVID-19; X58.XXXA Exposure to other specified factors, initial encounter | CPT/HCPCS: 87635 ==

== ENCOUNTER 2021-09-30 07:43 | Outpatient (CLI) | payer MEDICARE, MEDICAID, SELFPAY ==
--- NOTE | 2021-09-30 12:45 | USCV_ITS ---
Irma Jones Age: 55 Gender: F : 1965 Exam Date: 09/30/2021 08:15 Ordering Phys: Toño Villegas MD Technologist: CK2 Exam Location: [facility] – [place] Indication: POST PRANDAL CRAMPING Type of Exam: Mesenteric Artery 12 Ounces Of ENSURE Time of Ingestion: 08:25 Minutes Post-Prandial: 3, 5, AND 10 Pre-Prandial Post-Prandial SUPERIOR MESENTERIC ARTERY Aorta @ SMA: 60 cm/s 60 cm/s Celiac Artery: 258 cm/s 269 cm/s Hepatic Artery: 150 cm/s 82 cm/s SMA Prox 189 cm/s 132 cm/s SMA Mid: 108 cm/s 123 cm/s SMA Distal: 130 cm/s 123 cm/s Findings: Comparison: none available. Normal velocities and waveforms in the celiac axis and SMA. No turbulence or parvus tardus waveforms. Normal post prandial velocity and no abdominal pain. Conclusions No SMA or celiac artery stenosis. Dr. Tamar Juarez DO (Electronically Signed) Final Date: 30 September 2021 09:31 S
== END 2021-09-30 07:44 | disposition home or self-care (01) ==
PROVIDERS: PCP Family Medicine; Visit Provider Surgery
DX: Z87.19 Personal history of other diseases of the digestive system (principal)
CPT/HCPCS: 93975

== ENCOUNTER 2021-10-03 07:21 | Day surgery (SDC) | payer MEDICARE, MEDICAID, SELFPAY ==
[2021-09-30 10:30] VITALS: BMI 34.9
[2021-10-03] VITALS (8 sets, daily range): BP systolic 98–126; BP diastolic 58–79; PULSE 88–101; RESP 12–18; TEMP 31.1–36.8; O2SAT 92–100
[2021-10-03] MEDS: sodium chloride 0.9% 1,000 ML 30 ML IV (08:05)
[2021-10-03] MEDS: acetaminophen 1,000 MG/100 ML PIGGYBACK 400 MG IV (08:05)
[2021-10-03] MEDS: heparin 5,000 unit/mL INJ 1 mL 2000 UNIT SUBCUT (08:10)
--- NOTE | 2021-10-03 08:17 | ANES.PREANE2 ---
Pre-Anesthetic Assessment Height/Weight: Height 1.55 m Weight 83.915 kg Temp Pulse Resp BP Pulse Ox 97.5 F L 88 18 126/79 96 10/03/21 07:39 10/03/21 07:39 10/03/21 07:39 10/03/21 07:39 10/03/21 07:39 Preop Diagnosis: Abdominal wall wound Operation Date: 10/03/21 08:50 Proposed Procedures p Excision of abdominal wall wound 16887/s31.109a(Not Applicable) - Toño Villegas MD Familial anesthetic complications: None Last intake: Intake Last Liquid Date 10/02/21 Last Liquid Time 22:00 Last Solid Date 10/02/21 Last Solid Time 20:30 Social Tobacco and No alcohol Exam alert, oriented x 3 and regular rate & rhythm rhonchi Airway Submandibular: within normal limits Cervical ROM: within normal limits Mallampati: Class II Dentition: chipped Pulmonary Chronic Obstructive Pulmonary Disease CV/HEM Anemia, Hypertension and Peripheral Vascular Disease Hepatic Cirrhosis GI Gastroesophageal Reflux Disease Metabolic Hyperlipidemia and Morbid Obesity Hyponatremia, hypokalemia Musc/skel Lower Back Pain Neuropsych Anxiety and Depression Anesthetic Plan ASA status: 3 Anesthesia: General Risk of > 500 ml blood loss (7ml/kg in children): No Medications/Allergies Home Medications Medication Instructions Recorded Confirmed Last Taken Type valsartan 80 mg tablet 80 mg PO DAILY@09/17/19 10/03/21 10/02/21 History baclofen 10 mg tablet 10 mg PO TID PRN 11/25/19 10/03/21 10/02/21 History amlodipine 5 mg tablet 5 mg PO DAILY@12/13/20 10/03/21 10/02/21 History cetirizine 10 mg tablet (Zyrtec) 10 mg PO DAILY@12/13/20 10/03/21 10/02/21 History pantoprazole 40 mg tablet,delayed 40 mg PO BID@12/13/20 10/03/21 07/07/21 History release (Protonix) ondansetron HCl 4 mg tablet 4 mg PO Q6H PRN #20 tab 12/15/20 10/03/21 10/02/21 Rx (Zofran) atorvastatin 10 mg tablet 10 mg PO DAILY 02/01/21 10/03/21 10/02/21 History hydrochlorothiazide 50 mg tablet 25 mg PO DAILY tab 03/30/21 10/03/21 10/02/21 History potassium chloride 20 mEq 40 meq PO DAILY tab 05/25/21 10/03/21 10/02/21 History tablet,extended release(part/cryst) (Klor-Con M) alprazolam 1 mg tablet (Xanax) 1 mg PO TID PRN #90 tab 07/18/21 10/03/21 10/02/21 Rx amitriptyline 25 mg tablet 25 mg PO BEDTIME #90 tab 09/14/21 10/03/21 10/02/21 Rx citalopram 40 mg tablet (Celexa) 40 mg PO .morning #90 tab 09/14/21 10/03/21 10/02/21 Rx Allergies Allergy/AdvReac Type Severity Reaction Status Date / Time amoxicillin Allergy Severe ALGY-Rash Verified 09/29/21 06:34 codeine Allergy Unknown rash, Verified 09/29/21 06:34 itching Penicillins Allergy Unknown rash, Verified 09/29/21 06:34 itching Sulfa (Sulfonamide Allergy Unknown rash, Verified 09/29/21 06:34 Antibiotics) itching Iodinated Contrast Media Allergy Unknown Verified 09/29/21 06:34 Current Medications Generic Name Dose Route Start Last Admin Trade Name Freq PRN Reason Stop Dose Admin Sodium Chloride 1,000 mls @ 30 mls/hr 10/03/21 07:45 10/03/21 08:05 Sodium Chloride 0.9% IV 10/04/21 07:44 30 mls/hr .Q24H BRITTNEY Administration PFSH Anesthesia Medical History Abdominal wall abscess at site of surgical wound Acute kidney injury Bowel perforation COPD (chronic obstructive pulmonary disease) Generalized anxiety disorder HTN (hypertension) Hyperlipidemia Hypokalemia 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, recurrent severe without psychotic features PAD (peripheral artery disease) Peritonitis (acute) generalized Pneumonia Psychiatric care Rhabdomyolysis Sepsis Septic shock Shock liver Surgical History H/O drainage of abscess (~12/13/20) Intra-abdominal H/O exploratory laparotomy drainage of intra abdominal abscess H/O of hysterectomy with bilateral oophorectomy Status post exploratory laparotomy Family History Mother CHF (congestive heart failure) Social History Smoking and tobacco status: current every day smoker cigarettes Packs smoked per day: 1 Alcohol intake: current Alcohol intake frequency: few times a month Household members: family Marital status: Current occupational status: unemployed History of recent travel: No Data Anesthesia : 10/03/21 07:55 Cardiac Studies: Echocardiogram Ultrasound 04/15/20
[2021-10-03 08:35] LABS: Anion Gap 15.2 (5-19); Blood Urea Nitrogen 9 mg/dL (6-20); Calcium 8.1 mg/dL (8.5-10.5); Carbon Dioxide 27 mmol/L (22-29); Chloride 102 mmol/L (98-107); Glomerular Filtration Rate 87.2 mL/min (90-130); Glucose 113 mg/dL (65-115); Osmolality Calculated 291 mOsm/kg (285-295); Potassium 3.2 mmol/L (3.5-5.1); Sodium 141 mmol/L (136-145)
--- NOTE | 2021-10-03 09:12 | W.PM.OPSUD ---
Surgery/Procedure H&P Update DATE OF PROCEDURE: October 03, 2021 DATE H&P PERFORMED: 09/28/21 PREOP DIAGNOSIS: Abdominal wall wound PRIMARY INDICATION FOR PROCEDURE: The same PLANNED PROCEDURE: Operation Date: 10/03/21 08:50 Proposed Procedures p Excision of abdominal wall wound 01244/s31.109a(Not Applicable) - Toño Villegas MD
[2021-10-03] MEDS: levofloxacin-dextrose 5 % 500 MG/100 ML PREMIX 100 MG IV (09:18)
[2021-10-03] MEDS: lidocaine 2% INJ 20 mL INJECTION (10:00)
--- NOTE | 2021-10-03 10:08 | P.OP_ITS ---
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 Post-op findings: Post-debridement measurement; 8 x 2 x [address] to the muscular fascial layer Procedure done: 1-Anterior abdominal wall wound exploration 2-Sharp debridement of abdominal wall wound Implants: 2 inches packing wet-to-dry using lidocaine 2% Specimens removed/disposition: Tissues for cultures and sensitivities Surgeon: Toño Villegas MD [employer] Supervisor: Surgical Blayne Balderas Circulating nurse Kristin Anesthesia: General (Jc Puentes.) Estimated blood loss: 20 ml IV fluids: 900 Complications: No immediate complication Procedure: After identifying the patient holding area,patient was then taken to the operative suite, was placed in supine position, IV antibiotics were given per protocol, patient was intubated by the anesthesia provider, prep and drape of the wound regionwas done under the usual sterile technique. Time-out was done verifying the patient's name/date of /planned procedure and destination after the procedure, all were in agreement. Started by introducing gently a hemostat blunt tipped with a depth of about 3 and half centimeter through the previously existing sinus. There was no evidence of pus. I elected to extend cephalad and caudad using the electr ocautery, towards the cephalad part of the wound noticed a soft structure likely represent a small bowel that was not violated and was safeguarded, and towards the caudad that part of the wound shwoed extensive thickened scar tissues with unhealthy granulation tissues that were debrided sharply and tissues were sent for cultures and sensitivities. Excising the unhealthy necrotic indurated tissues of the wound. At that point curette was used to remove the residual unhealthy tissues and I stopped at that point as there was no evidence of sutures retained or cavitation including pus or enetrocutaneous fistulae. Copious and thorough irrigation was done using 3 L of Pulsavac.Hemostasis was then achieved. There was no violation of bowel. I elected to apply 3-0 Vicryl invaginating the exposed small bowel followed by that a continuous 3-0 Prolene. Also 3-0 Prolene was used towards the caudad part of the wound leaving a central cavity that was packed with 2 inches Nu Gauze impregnated lidocaine 2%. Followed by dry dressing. Wound measurement ; Post-debridement measurement; 8 x 2 [address] to the muscular fascial layer Patient tolerated the procedure well, count of instruments and sponges were completed at the end of the procedure. Patient was then taken to the recovery area in stable condition. I was present for the whole entire procedure Post op recommendations: If Patient develops a recurrent sinus,she will need exploratory laparotomy with possible bowel resection
--- NOTE | 2021-10-03 14:10 | ANE.PACU2 ---
Inpatient post-anesthesia follow up: Airway intact: Yes Vital signs: Temperature 88 F Pulse Rate 88 Respiratory Rate 18 Blood Pressure 98/67 Pulse Oximetry 95 Oxygen Delivery Me thod Room Air Oxygen Flow Rate 2 Fraction of Inspir ed Oxygen Hydration adequate: Yes Nausea and vomiting: No Pain level: 2 Mental status: Baseline
== END 2021-10-03 11:45 | disposition home or self-care (01) ==
PROVIDERS: Anesthesiology; PCP Family Medicine; Visit Provider Surgery
PROC: (CPT 11043; principal; 2021-10-03 08:40)
DX: S31.109A Unspecified open wound of abdominal wall, unspecified quadrant without penetration into peritoneal cavity, initial encounter (principal); X58.XXXA Exposure to other specified factors, initial encounter; I10 Essential (primary) hypertension; I73.9 Peripheral vascular disease, unspecified; K21.9 Gastro-esophageal reflux disease without esophagitis; E78.5 Hyperlipidemia, unspecified; E66.01 Morbid (severe) obesity due to excess calories; Z68.35 Body mass index [BMI] 35.0-35.9, adult; J44.9 Chronic obstructive pulmonary disease, unspecified; F17.210 Nicotine dependence, cigarettes, uncomplicated; Z82.49 Family history of ischemic heart disease and other diseases of the circulatory system
CPT/HCPCS: 11043; 11046; 80048; 87070; 87176; 87205; 96372; J1644; J1956; J2250; J2370; J3010; J7030

== ENCOUNTER 2021-10-07 09:59 | Outpatient (CLI) | payer MEDICARE, MEDICAID, SELFPAY | END 2021-10-07 10:00 | disposition home or self-care (01) | LOC: WOUND 10:00 | PROVIDERS: PCP Family Medicine; Visit Provider Surgery | DX: I96 Gangrene, not elsewhere classified (principal); T81.89XA Other complications of procedures, not elsewhere classified, initial encounter; Y83.8 Other surgical procedures as the cause of abnormal reaction of the patient, or of later complication, without mention of misadventure at the time of the procedure; F17.210 Nicotine dependence, cigarettes, uncomplicated | CPT/HCPCS: 11043 ==

== ENCOUNTER 2021-10-14 13:43 | Outpatient (CLI) | payer MEDICARE, MEDICAID, SELFPAY | END 2021-10-14 13:44 | disposition home or self-care (01) | LOC: WOUND 13:46 | PROVIDERS: PCP Family Medicine; Visit Provider Surgery | DX: T81.89XA Other complications of procedures, not elsewhere classified, initial encounter (principal); F17.210 Nicotine dependence, cigarettes, uncomplicated; Y93.9 Activity, unspecified | CPT/HCPCS: 11043 ==

== ENCOUNTER 2021-10-21 08:38 | Outpatient (CLI) | payer MEDICARE, MEDICAID, SELFPAY | END 2021-10-21 08:39 | disposition home or self-care (01) | LOC: WOUND 08:40 | PROVIDERS: PCP Family Medicine; Visit Provider Surgery | DX: I96 Gangrene, not elsewhere classified (principal); T81.89XA Other complications of procedures, not elsewhere classified, initial encounter; Y83.8 Other surgical procedures as the cause of abnormal reaction of the patient, or of later complication, without mention of misadventure at the time of the procedure; F17.210 Nicotine dependence, cigarettes, uncomplicated | CPT/HCPCS: 11043 ==

== ENCOUNTER 2021-10-28 08:37 | Outpatient (CLI) | payer MEDICARE, MEDICAID, SELFPAY | END 2021-10-28 08:38 | disposition home or self-care (01) | LOC: WOUND 08:38 | PROVIDERS: PCP Family Medicine; Visit Provider Surgery | DX: T81.89XD Other complications of procedures, not elsewhere classified, subsequent encounter (principal); Y83.8 Other surgical procedures as the cause of abnormal reaction of the patient, or of later complication, without mention of misadventure at the time of the procedure | CPT/HCPCS: 11043 ==

== ENCOUNTER → 2021-11-02 07:55 | Outpatient (BNVA) | payer MEDICARE, MEDICAID, SELFPAY | PROVIDERS: PCP Family Medicine; Visit Provider Nurse Practitioner Psychiatric/Mental Health | DX: F33.2 Major depressive disorder, recurrent severe without psychotic features (principal); F41.1 Generalized anxiety disorder; F17.210 Nicotine dependence, cigarettes, uncomplicated | CPT/HCPCS: 99214 ==

== ENCOUNTER 2021-11-02 08:26 | Outpatient (CLI) | payer MEDICARE, MEDICAID, SELFPAY | END 2021-11-02 08:27 | disposition home or self-care (01) | LOC: WOUND 08:27 | PROVIDERS: PCP Family Medicine; Visit Provider Thoracic Surgery (Cardiothoracic Vascular Surgery) | DX: T81.31XS Disruption of external operation (surgical) wound, not elsewhere classified, sequela (principal); Y83.8 Other surgical procedures as the cause of abnormal reaction of the patient, or of later complication, without mention of misadventure at the time of the procedure | CPT/HCPCS: 97605; 99214; A6237; A6250 ==

== ENCOUNTER 2021-11-04 08:45 | Outpatient (CLI) | payer MEDICARE, MEDICAID, SELFPAY | END 2021-11-04 08:46 | disposition home or self-care (01) | LOC: WOUND 08:46 | PROVIDERS: PCP Family Medicine; Visit Provider Surgery | DX: I96 Gangrene, not elsewhere classified (principal); T81.89XA Other complications of procedures, not elsewhere classified, initial encounter; Y83.8 Other surgical procedures as the cause of abnormal reaction of the patient, or of later complication, without mention of misadventure at the time of the procedure; F17.210 Nicotine dependence, cigarettes, uncomplicated | CPT/HCPCS: 11043; A6237; A6250 ==

== ENCOUNTER 2021-11-08 14:58 | Outpatient (CLI) | payer MEDICARE, MEDICAID, SELFPAY | END 2021-11-08 14:59 | disposition home or self-care (01) | LOC: WOUND 14:59 | PROVIDERS: PCP Family Medicine; Visit Provider Emergency Medicine | DX: T81.89XS Other complications of procedures, not elsewhere classified, sequela; I96 Gangrene, not elsewhere classified; Y83.8 Other surgical procedures as the cause of abnormal reaction of the patient, or of later complication, without mention of misadventure at the time of the procedure | CPT/HCPCS: 11042 ==

== ENCOUNTER 2021-11-11 12:22 | Outpatient (CLI) | payer MEDICARE, MEDICAID, SELFPAY | END 2021-11-11 12:23 | disposition home or self-care (01) | LOC: WOUND 12:23 | PROVIDERS: PCP Family Medicine; Visit Provider Surgery | DX: Y83.8 Other surgical procedures as the cause of abnormal reaction of the patient, or of later complication, without mention of misadventure at the time of the procedure; I96 Gangrene, not elsewhere classified; T81.31XA Disruption of external operation (surgical) wound, not elsewhere classified, initial encounter; F17.210 Nicotine dependence, cigarettes, uncomplicated | CPT/HCPCS: 11043; 97605; A6250 ==

== ENCOUNTER → 2021-11-18 08:43 | Outpatient (BNVA) | payer MEDICARE, MEDICAID, SELFPAY | PROVIDERS: PCP Family Medicine; Visit Provider Nurse Practitioner Family | DX: T81.89XA Other complications of procedures, not elsewhere classified, initial encounter (principal); Y83.8 Other surgical procedures as the cause of abnormal reaction of the patient, or of later complication, without mention of misadventure at the time of the procedure; I96 Gangrene, not elsewhere classified | CPT/HCPCS: 11042; A6250 ==

== ENCOUNTER 2021-11-21 17:19 | Observation (INO) | payer MEDICARE, MEDICAID, SELFPAY ==
[2021-11-21 17:49] VITALS: BP 88/61; PULSE 92; RESP 18; TEMP 36.7; BMI 34.0
[2021-11-21 17:54] VITALS: BP 82/46; PULSE 84; RESP 18; O2SAT 94
--- NOTE | 2021-11-21 18:31 | CTR_ITS ---
PROCEDURE INFORMATION: Exam: CTA Abdomen and Pelvis With Contrast Exam date and time: 11/21/2021 6:57 PM Age: 56 years old Clinical indication: Condition or disease; Other: Wound eval; Mass, lump or swelling; Prior surgery; Surgery date: 1-6 months; Patient HX: PT has wound that will not heal on lower abdomen. ; Additional info: Eval surigcal site bleeding TECHNIQUE: Imaging protocol: Computed tomographic angiography of the abdomen and pelvis with contrast material. 3D rendering (Not supervised by radiologist): MIP and/or 3D reconstructed images were created by the technologist. Radiation optimization: All CT scans at this facility use at least one of these dose optimization techniques: automated exposure control; mA and/or kV adjustment per patient size (includes targeted exams where dose is matched to clinical indication); or iterative reconstruction. Contrast material: VISIPAQUE 320; Contrast volume: 95 ml; Contrast route: INTRAVENOUS (IV); COMPARISON: 1. CT abdomen pelvis wo con [id number] 04/29/2021 12:00 PM 2. CR XR chest 1V portable [id number] 04/20/2020 4:30 AM RADIATION DOSE METRICS: Total DLP (mGy-cm): 1238.28 FINDINGS: Aorta: Diffuse circumferential plaque of abdominal aorta. Negative for aneurysm or dissection. Celiac trunk and mesenteric arteries: No occlusion or significant stenosis. Renal arteries: No occlusion or significant stenosis. Right iliac arteries: No occlusion or significant stenosis. Left iliac arteries: There is fairly significant stenosis at the origin of the left common iliac artery secondary to calcified plaque. Liver: No mass. Gallbladder and bile ducts: Cholecystectomy. Mild dilation of common bile duct without intrahepatic bile duct dilation. Stable appearance from prior. Pancreas: Unremarkable. No mass. No ductal dilation. Spleen: Unremarkable. No splenomegaly. Adrenal glands: Unremarkable. No mass. Kidneys and ureters: Unremarkable. No solid mass. No hydronephrosis. Stomach and bowel: Collapsed, matted bowel loops seem to be tethered underlying the area of ventral abdominal wall abnormality. Extension of fluid and gas collection into the anterior aspect of lower abdomen cannot be excluded representing fistula. Negative for bowel obstruction. Appendix: No evidence of appendicitis. Intraperitoneal space: Negative for pneumoperitoneum. No drainable abscess. Lymph nodes: Unremarkable. No enlarged lymph nodes. Urinary bladder: Unremarkable. No mass. Reproductive: Hysterectomy. Bones/joints: No acute fracture. No dislocation. Soft tissues: Thickened soft tissues of the midline ventral abdominal wall at the lower margin of visible wound. Fluid collection with gas is noted superficially. Faint area of increased density at the inferior margin of the collection could represent blood products. Diffuse thickening of lower abdominal rectus musculature. CT/CT angio abdomen pelvis [id number] IMPRESSION: Midline lower ventral abdominal wall wound with fluid and gas collection at the base of the wound along the inferior margin. Heterogeneous increased density at the inferior margin of the collection likely representing blood products. Suspect underlying fistula to the underlying matted, tethered bowel loops.
[2021-11-21 18:41] LABS: Basophils # 0.1 10^3/uL (0.0-0.1); Basophils % 0.6 %; Eosinophils # 0.2 10^3/uL (0.0-0.8); Eosinophils % 0.9 %; Hematocrit 44.2 % (37.0-47.0); Lymphocytes # 3.1 10^3/uL (0.8-4.8); Lymphocytes % 19.5 %; Mean Corpuscular HGB Conc 31.7 g/dL (30.0-36.0); Mean Corpuscular Hemoglobin 28.6 pg (28.0-34.0); Mean Corpuscular Volume 90.2 fl (81-99); Mean Platelet Volume 9.4 fL (7.4-10.4); Monocytes # 1.1 10^3/uL (0.2-0.9); Monocytes % 7.1 %; Neutrophils % 71.5 %; Nucleated Red Blood Cells % 0 %; Platelet Count 194 10^3/cmm (130-400); Red Cell Distribution Width 14.6 % (12.1-15.1); White Blood Count 15.8 10^3/uL (4.0-10.0)
[2021-11-21] MEDS: sodium chloride 0.9% 1,000 ML 999 ML IV ×2 (18:45→20:56)
[2021-11-21] MEDS: diphenhydrAMINE 50 mg/mL SDV 1mL IVP (18:46)
--- NOTE | 2021-11-21 18:46 | ED_ITS ---
HPI - General Adult General: Chief complaint: Wound/Laceration Stated complaint: ABD Surgical incision Bleeding Time Seen by Provider: 11/21/21 18:30 History of Present Illness: Patient is a 56-year-old female with a history of perforated bowel status post ex lap followed by Dr. Villegas who presents the emergency room for complaints of surgical site bleeding. Patient has had previous surgical site infections requiring home health and wound care. Since patient woke up this morning, she has complained of significant lower abdominal pain with bleeding from the incision site. Patient presents the emergency room for further evaluation this time. Arrival, patient denies any nausea/vomiting, diarrhea, melena hematochezia. Patient has no complaints of chest pain shortness breath compel patient, cough, sore throat or runny nose. Patient reports that she is not currently bleeding. Patient not on any anticoagulation. Patient denies any urinary complaints, new vaginal discharge, or any recent trauma wound dehiscence. Onset: earlier this AM Duration:12 hrs Location:ongoing Severity:moderate/severe Associated symptoms: Deny chest pain, dyspnea, nausea, rash, palpitations or vomiting Review of Systems Const: Denies: fever(s) or chills Eyes: Denies: change in vision ENMT: Denies: mouth pain Card: Denies: chest pain or palpitations Resp: Denies: dyspnea or non-productive cough GI: Reports: abdominal pain and other (+surgical site bleeding); Denies: nausea, vomiting or diarrhea : Denies: dysuria Musc: Denies: extremity pain Skin/Breast: Denies: rash or new lesions Neuro: Denies: weakness in extremities Psych: Reports: other (Normal mood) Jf/Lymph: Denies: easy bruising PFSH ED PFSH: Medical History Abdominal wall abscess at site of surgical wound Acute kidney injury Bowel perforation COPD (chronic obstructive pulmonary disease) Generalized anxiety disorder HTN (hypertension) Hyperlipidemia Hypokalemia 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, recurrent severe without psychotic features PAD (peripheral artery disease) Peritonitis (acute) generalized Pneumonia Psychiatric care Rhabdomyolysis Sepsis Septic shock Shock liver Surgical History H/O drainage of abscess (~12/13/20) Intra-abdominal H/O exploratory laparotomy drainage of intra abdominal abscess H/O of hysterectomy with bilateral oophorectomy Status post exploratory laparotomy Family History Mother CHF (congestive heart failure) Social History Smoking and tobacco status: current every day smoker cigarettes Packs smoked p er day: 1 Alcohol intake: current Alcohol intake frequency: few times a month Household members: family Marital status: Current occupational status: unemployed History of recent travel: No Physical Exam Const: COMMON NORMALS: alert HENMT: COMMON NORMALS: atraumatic HEAD & SCALP: atraumatic MOUTH: moist mucous membranes not abnormal Eye: COMMON NORMALS: EOMs intact bilaterally and conjunctivae normal CONJUNCTIVA: Yes conjunctivae normal Neck/C-Spine: COMMON NORMALS: full ROM and supple Resp: COMMON NORMALS: normal respiratory effort and clear to auscultation bilaterally AUSCULTATION: clear to auscultation bilaterally Cardio: COMMON NORMALS: regular rate RATE: regular rate GI: COMMON NORMALS: Soft to palpation PALPATION: Yes Soft to palpation OTHER: + Surgical site appears to be directly intact. No visible bleeding or extravasation from the surgical site. Lower abdominal tenderness to palpation moderate, plus abdominal distention. No guarding guarding, rigidity. No CVA ten derness to percussion. Neg Liriano/Neg McBurney's point tenderness, no suprabupic tenderness to palpation. Extremity: COMMON NORMALS: full ROM Neuro: SENSORIUM/ORIENTATION: Yes alert MOTOR EXAM: No Abnormal motor strength present and Other motor observations present (no focal motor deficits) Psych: COMMON NORMALS: speech normal SPEECH: Yes normal speech MOOD & AFFECT: Yes euthymic mood Course Vital Signs: Vital signs: Vital Signs Temperature 98.1 F 11/21/21 17:49 Pulse Rate 83 11/21/21 19:10 Respiratory Rate 18 11/21/21 19:10 Blood Pressure 84/45 11/21/21 19:10 Pulse Oximetry 94 11/21/21 19:10 [facility] - General Adult Medical Decision Making 56-year-old female with a history of prior ex lap for perforated bowel co mplicated by surgical site infection and bleeding presented to the emergency room with surgical site bleeding. On exam, patient has no active signs of acute surgical bleed. Patient is noted to have low blood pressure of 90/65. Lower abdominal tenderness to palpation is present. FAST exam is negative. Hemoglobin of 14.0. White count 15.8. There is a heterogeneous collection on the CT abdomen pelvis. Blood culture lactic acid sent at this time. Given low blood pressure and elevated WBC, patient received 30 cc/kg of IVF, vancomycin, cefepime and metronidazole. Case was emergently discussed with Dr. Bell given concern for possible bleeding internally. Dr. Bell recommended that case discussed case with Dr. Villegas since he performed the surgery. Case was discussed with Dr. Villegas who recommended close observation inpatient admission. We will repeat an H&H in [address] Villegas recommended IV antibiotics and close observation. Dr. Villegas will reassess patient first in the morning Disposition: ICU for close observation Lab Data : 11/21/21 18:33 11/21/21 19:11 Radiology Impressions Abdomen/Pelvis CTA 11/21/21 18:31 IMPRESSION: Midline lower ventral abdominal wall wound with fluid and gas collection at the base of the wound along the inferior margin. Heterogeneous increased density at the inferior margin of the collection likely representing blood products. Suspect underlying fistula to the underlying matted, tethered bowel loops. Laboratory Results WBC 15.8 10^3/uL (4.0-10.0) H 11/21/21 18:33 RBC 4.90 10^6/uL (4.1-5.3) 11/21/21 18:33 Hgb 14.0 g/dL (11.5-15.3) 11/21/21 18:33 Hct 44.2 % (37.0-47.0) 11/21/21 18:33 MCV 90.2 fl (81-99) 11/21/21 18:33 MCH 28.6 pg (28.0-34.0) 11/21/21 18: MCHC 31.7 g/dL (30.0-36.0) 11/21/21 18:33 RDW 14.6 % (12.1-15.1) 11/21/21 18:33 Plt Count 194 10^3/cmm (130-400) 11/21/21 18:33 MPV 9.4 fL (7.4-10.4) 11/21/21 18:33 Neut % (Auto) 71.5 % 11/21/21 18:33 Lymph % (Auto) 19.5 % 11/21/21 18:33 Levy % (Auto) 7.1 % 11/21/21 18:33 Eos % (Auto) 0.9 % 11/21/21 18:33 Baso % (Auto) 0.6 % 11/21/21 18:33 Neut # (Auto) 11.30 10^3/uL (1.8-7.7) H 11/21/21 18:33 Lymph # (Auto) 3.1 10^3/uL (0.8-4.8) 11/21/21 18: Levy # (Auto) 1.1 10^3/uL (0.2-0.9) H 11/21/21 18: Eos # (Auto) 0.2 10^3/uL (0.0-0.8) 11/21/21 18: Baso # (Auto) 0.1 10^3/uL (0.0-0.1) 11/21/21 18:33 Nucleated RBC % (auto) 0 % 11/21/21 18: Nucleated RBCs # 0.0 /100WBC 11/21/21 18:33 Sodium 136 mmol/L (136-145) 11/21/21 19:11 Potassium 3.5 mmol/L (3.5-5.1) 11/21/21 19:11 Chloride 103 mmol/L (98-107) 11/21/21 19:11 Carbon Dioxide 24 mmol/L (22-29) 11/21/21 19:11 Anion Gap 12.5 (5-19) 11/21/21 19:11 BUN 15 mg/dL (6-20) 11/21/21 19:11 Creatinine 1.0 mg/dL (0.5-0.9) H 11/21/21 19:11 GFR Calculation 57.6 mL/min (90-130) L 11/21/21 19:11 Glucose 96 mg/dL (65-115) 11/21/21 19:11 Calculated Osmolality 283 mOsm/kg (285-295) L 11/21/21 19:11 Calcium 7.7 mg/dL (8.5-10.5) L 11/21/21 19:11 Total Bilirubin 0.5 mg/dL (0.15-1.2) 11/21/21 19:11 AST 8 U/L (0-32) 11/21/21 19:11 ALT 6 U/L (0-33) 11/21/21 19:11 Alkaline Phosphatase 103 IU/L (35-105) 11/21/21 19:11 Total Protein 6.5 g/dL (6.6-8.7) L 11/21/21 19:11 Albumin 2.9 g/dL (3.5-5.2) L 11/21/21 19:11 Globulin 3.6 g/dL (1.3-4.6) 11/21/21 19:11 Lipase 21 U/L (13-60) 11/21/21 19:11 Urine Color Yellow (Yellow) 11/21/21 19:17 Urine Appearance Sl hazy (CLEAR) 11/21/21 19:17 Urine pH 5 (5-7) 11/21/21 19:17 Ur Specific [place] 1.020 (1.005-1.030) 11/21/21 19:17 Urine Protein Trace (Negative) 11/21/21 19:17 Urine Glucose (UA) Norm (Normal) 11/21/21 19:17 Urine Ketones Negative (Negative) 11/21/21 19:17 Urine Blood Neg (Negative) 11/21/21 19:17 Urine Nitrate Negative (Negative) 11/21/21 19:17 Urine Bilirubin 1+ (Negative) H 11/21/21 19:17 Urine Urobilinogen 4 mg/dL (Negative) H 11/21/21 19:17 Ur Leukocyte Esterase Negative (Negative) 11/21/21 19:17 Urine RBC 0-4 /hpf (0-2) H 11/21/21 19:17 Urine WBC 5-10 /hpf (0-5) H 11/21/21 19:17 Ur Squamous Epith Cells 10-15 /hpf (0-5) H 11/21/21 19:17 Amorphous Sediment Not Reportable 11/21/21 19:17 Urine Bacteria 1+ /hpf (NONE) H 11/21/21 19:17 Hyaline Casts 5-10 /lpf H 11/21/21 19:17 Urine Mucus 1+ /hpf 11/21/21 19:17 Blood Type O Positive 11/21/21 18:30 Rho(D) Type Positive 11/21/21 18:30 Antibody Screen Negative 11/21/21 18:30 Imaging Data Other Imaging: Radiologist's impression: [facility] [address] [address] Scan Report Signed Patient: Irma Jones Unit #: [id number] : 1965 Age/Sex: 56 / F ADM Date: 11/21/21 Loc: ER Room/Bed: Attending Dr: Ordering Provider/Ordering MD: Leslee Kohler MD Date of Service: 11/21/21 Procedure(s): CT angio abdomen pelvis 88200 Accession Number(s): [id number] Report Number: [id number] PROCEDURE INFORMATION: Exam: CTA Abdomen and Pelvis With Contrast Exam date and time: 11/21/2021 6:57 PM Age: 56 years old Clinical indication: Condition or disease; Other: Wound eval; Mass, lump or swelling; Prior surgery; Surgery date: 1-6 months; Patient HX: PT has wound that will not heal on lower abdomen. ; Additional info: Eval surigcal site bleeding TECHNIQUE: Imaging protocol: Computed tomographic angiography of the abdomen and pelvis with contrast material. 3D rendering (Not supervised by radiologist): MIP and/or 3D reconstructed images were created by the technologist. Radiation optimization: All CT scans at this facility use at least one of these dose optimization techniques: automated exposure control; mA and/or kV adjustment per patient size (includes targeted exams where dose is matched to clinical indication); or iterative reconstruction. Contrast material: VISIPAQUE 320; Contrast volume: 95 ml; Contrast route: INTRAVENOUS (IV);? COMPARISON: 1. CT abdomen pelvis wo con [id number] 04/29/2021 12:00 PM 2. CR XR chest 1V portable [id number] 04/20/2020 4:30 AM RADIATION DOSE METRICS: Total DLP (mGy-cm): 1238.28 FINDINGS: Aorta: Diffuse circumferential plaque of abdominal aorta. Negative for aneurysm or dissection. Celiac trunk and mesenteric arteries: No occlusion or significant stenosis. Renal arteries: No occlusion or significant stenosis. Right iliac arteries: No occlusion or significant stenosis. Left iliac arteries: There is fairly significant stenosis at the origin of the left common iliac artery secondary to calcified plaque. Liver: No mass. Gallbladder and bile ducts: Cholecystectomy. Mild dilation of common bile duct without intrahepatic bile duct dilation. Stable appearance from prior. Pancreas: Unremarkable. No mass. No ductal dilation. Spleen: Unremarkable. No splenomegaly. Adrenal glands: Unremarkable. No mass. Kidneys and ureters: Unremarkable. No solid mass. No hydronephrosis. Stomach and bowel: Collapsed, matted bowel loops seem to be tethered underlying the area of ventral abdominal wall abnormality. Extension of fluid and gas collection into the anterior aspect of lower abdomen cannot be excluded representing fistula. Negative for bowel obstruction. Appendix: No evidence of appendicitis. Intraperitoneal space:? Negative for pneumoperitoneum.? No drainable abscess. Lymph nodes: Unremarkable. No enlarged lymph nodes. Urinary bladder: Unremarkable. No mass. Reproductive: Hysterectomy. Bones/joints: No acute fracture. No dislocation. Soft tissues: Thickened soft tissues of the midline ventral abdominal wall at the lower margin of visible wound. Fluid collection with gas is noted superficially. Faint area of increased density at the inferior margin of the collection could represent blood products. Diffuse thickening of lower abdominal rectus musculature. CT/CT angio abdomen pelvis [id number] IMPRESSION: Midline lower ventral abdominal wall wound with fluid and gas collection at the base of the wound along the inferior margin. Heterogeneous increased density at the inferior margin of the collection likely representing blood products. Suspect underlying fistula to the underlying matted, tethered bowel loops. ? Dictated By: Horace Donaldson Signed By: Horace Donaldson Signed Date/Time: 11/21/212001 DD/ [id number] Discharge Plan Discharge Condition: Stable Prescriptions: No Action atorvastatin 10 mg tablet 10 mg PO DAILY 0RF potassium chloride [Klor-Con M20] 20 mEq tablet,ER particles/crystals 40 meq PO DAILY 0RF Celexa 40 mg tablet 40 mg PO .morning Qty: 90 2RF Hold Instructions: Resume on 04/07/21. Rx Instructions: Take one tablet every morning amitriptyline 25 mg tablet 25 mg PO BEDTIME Qty: 90 2RF Rx Instructions: Take one tablet at bedtime valsartan 80 mg tablet 80 mg PO DAILY@09 0RF baclofen 10 mg tablet 10 mg PO TID PRN (Reason: Spasms) 0RF alprazolam [Xanax] 1 mg tablet 1 mg PO TID PRN (Reason: anxiety) Qty: 90 3RF amlodipine 5 mg tablet 5 mg PO DAILY@09 0RF pantoprazole [Protonix] 40 mg Tablet,Delayed Release (Dr/Ec) 40 mg PO BID@09,23 0RF ondansetron HCl [Zofran] 4 mg tablet 4 mg PO Q6H PRN (Reason: nausea and vomiting) Qty: 20 0RF hydrochlorothiazide 50 mg tablet 25 mg PO DAILY 0RF gabapentin 300 mg capsule 300 mg PO TID 0RF Referrals: Paulo Stevens MD [Primary Care Provider] - Coding Level of Care Code ED [place] for Chg Fwd Exam Comprehensive
[2021-11-21] MEDS: iodixanol 320 mg/mL 100mL Btl IV (19:02)
[2021-11-21 19:10] VITALS: BP 84/45; PULSE 83; RESP 18; O2SAT 94
[2021-11-21 19:38] LABS: Alanine Aminotransferase 6 U/L (0-33); Albumin Level 2.9 g/dL (3.5-5.2); Alkaline Phosphatase 103 IU/L (35-105); Anion Gap 12.5 (5-19); Aspartate Amino Transferase 8 U/L (0-32); Blood Urea Nitrogen 15 mg/dL (6-20); Calcium 7.7 mg/dL (8.5-10.5); Carbon Dioxide 24 mmol/L (22-29); Chloride 103 mmol/L (98-107); Globulin 3.6 g/dL (1.3-4.6); Glomerular Filtration Rate 57.6 mL/min (90-130); Glucose 96 mg/dL (65-115); Lipase 21 U/L (13-60); Osmolality Calculated 283 mOsm/kg (285-295); Potassium 3.5 mmol/L (3.5-5.1); Sodium 136 mmol/L (136-145); Total Bilirubin 0.5 mg/dL (0.15-1.2); Total Protein 6.5 g/dL (6.6-8.7)
[2021-11-21 19:40] LABS: Creatinine Clr Calc Pharmacy 61.5518
[2021-11-21 19:46] LABS: Add Urine Microscopic? YES; Bilirubin Urine 1+ (Negative); Blood Urine Neg (Negative); Glucose Urine UA Norm (Normal); Ketones Urine Negative (Negative); Leukocyte Esterase Urine Negative (Negative); Nitrate Urine Negative (Negative); Protein Urine Trace (Negative); Urine Appearance SL Hazy (CLEAR); Urine Color Yellow (Yellow); Urobilinogen Urine 4 mg/dL (Negative); pH Urine 5 (5-7)
[2021-11-21 19:47] LABS: Bacteria Urine 1+ /hpf; Mucus Urine 1+ /hpf; RBC Urine 0-4 /hpf (0-2)
[2021-11-21 19:48] LABS: Add Urine Culture? No
[2021-11-21] MEDS: metroNIDAZOLE IV 500 MG/100 ML PREMIX 100 MG IV (20:23)
[2021-11-21] MEDS: cefepime 1,000 MG in sodium chloride 0.9% (plus) 50 ML 100 MG IV (20:26)
[2021-11-21 20:44] LABS: Lactate (Lactic Acid level) 1.4 mmol/L (0.5-2.2)
[2021-11-21 20:51] VITALS: BP 106/63; RESP 18; O2SAT 93
[2021-11-21 21:03] LABS: Basophils # 0.1 10^3/uL (0.0-0.1); Basophils % 0.4 %; Eosinophils # 0.1 10^3/uL (0.0-0.8); Hematocrit 37.7 % (37.0-47.0); Hemoglobin 11.8 g/dL (11.5-15.3); Lymphocytes # 2.9 10^3/uL (0.8-4.8); Lymphocytes % 21.3 %; Mean Corpuscular HGB Conc 31.3 g/dL (30.0-36.0); Mean Corpuscular Hemoglobin 28.5 pg (28.0-34.0); Mean Corpuscular Volume 91.1 fl (81-99); Mean Platelet Volume 10.1 fL (7.4-10.4); Monocytes # 1.3 10^3/uL (0.2-0.9); Monocytes % 9.6 %; Neutrophils # 9.22 10^3/uL (1.8-7.7); Neutrophils % 67.3 %; Nucleated Red Blood Cells % 0 %; Platelet Count 171 10^3/cmm (130-400); Red Blood Count 4.14 10^6/uL (4.1-5.3); Red Cell Distribution Width 14.7 % (12.1-15.1); White Blood Count 13.7 10^3/uL (4.0-10.0)
--- NOTE | 2021-11-21 21:50 | P.HP_ITS ---
Providers/Chief Complaint Primary Care Provider: Paulo Stevens MD Chief Complaint: ABD Surgical incision Bleeding History of Present Illness Pleasant 56-year-old lady with history of bowel perforation, exploratory laparotomy in March 2020, subsequently with wound dehiscence, following with wound care clinic, packing the wound with assistance of her sister, as well as home health. Yesterday she was starting to have some chills, today she was experiencing lower abdominal pain, as well as blood and some clots noted coming out from the wound. In ER with noted leukocytosis, 15.8, also with low blood pressure, 82/46, lower abdominal tenderness, CT abdomen pelvis was obtained, with finding of midline lower ventral abdominal wall wound with fluid and gas collection at the base of the wound along the inferior margin. Heterogenous increased density at the inferior margin of the collection likely presenting blood products. Suspected underlying fistula to the underlying matted, tethered bowel loops. The increased density at the inferior margin of the presumed abscess collection within the ventral abdominal wall most likely represents layering blood products.? There is no convincing evidence for active bleeding. Surgery was contacted for consultation. She is empirically started on antibiotic coverage as well. Receiving fluid resuscitation due to ongoing hypotension. Appears to be showing some response, blood pressure up to 106/63. Reports she has been taking her medications. Is on amlodipine, HCTZ, valsartan. Review of Systems Const: Reports: chills; Denies: fever(s), body aches or malaise Eyes: Denies: change in vision or eye redness ENMT: Denies: throat pain, oral sores or ear or mastoid pain Card: Denies: chest pain, edema, pre-syncope or dyspnea on exertion Resp: Denies: dyspnea, productive cough, change in phlegm color or hemoptysis GI: Reports: abdominal pain; Denies: nausea, vomiting, diarrhea, constipation, hematochezia or melena : Denies: flank pain, urinary frequency or hematuria Musc: Denies: back pain, joint swelling or joint redness Skin/Breast: Reports: other (Abdominal wound dehiscence. Today pain, serosanguineous drainage and clots); Denies: rash or sores Neuro: Denies: headache(s), numbness in extremities, weakness in extremities, dizziness, confusion or seizure-like activity Endo: Denies: polyuria or polydipsia Jf/Lymph: Denies: easy bleeding or purpura All/Imm: Denies: urticaria, throat swelling or tongue swelling Medications/Allergies Home Medications Medication Instructions Recorded Confirmed Last Taken Type valsartan 80 mg tablet 80 mg PO DAILY@09/17/19 11/21/21 11/21/21 History baclofen 10 mg tablet 10 mg PO TID PRN 11/25/19 11/21/21 11/21/21 History amlodipine 5 mg tablet 5 mg PO DAILY@12/13/20 11/21/21 11/21/21 History pantoprazole 40 mg tablet,delayed 40 mg PO BID@12/13/20 11/21/21 11/21/21 History release (Protonix) ondansetron HCl 4 mg tablet 4 mg PO Q6H PRN #20 tab 12/15/20 11/21/21 10/02/21 Rx (Zofran) atorvastatin 10 mg tablet 10 mg PO DAILY 02/01/21 11/21/21 11/21/21 History hydrochlorothiazide 50 mg tablet 25 mg PO DAILY tab 03/30/21 11/21/21 11/21/21 History potassium chloride 20 mEq 40 meq PO DAILY tab 05/25/21 11/21/21 11/21/21 History tablet,extended release(part/cryst) (Klor-Con M) amitriptyline 25 mg tablet 25 mg PO BEDTIME #90 tab 09/14/21 11/21/21 11/20/21 Rx citalopram 40 mg tablet (Celexa) 40 mg PO .morning #90 tab 09/14/21 11/21/21 11/21/21 Rx alprazolam 1 mg tablet (Xanax) 1 mg PO TID PRN #90 tab 11/02/21 11/21/21 11/21/21 Rx gabapentin 300 mg capsule 300 mg PO TID 11/21/21 11/21/21 11/21/21 History Allergies Allergy/AdvReac Type Severity Reaction Status Date / Time amoxicillin Allergy Severe ALGY-Rash Verified 11/21/21 19:18 codeine Allergy Unknown rash, Verified 11/21/21 19:18 itching Penicillins Allergy Unknown rash, Verified 11/21/21 19:18 itching Sulfa (Sulfonamide Allergy Unknown rash, Verified 11/21/21 19:18 Antibiotics) itching Iodinated Contrast Media Allergy Unknown Verified 11/21/21 19:18 PFSH Acute PFSH: Medical History Abdominal wall abscess at site of surgical wound Acute kidney injury Bowel perforation COPD (chronic obstructive pulmonary disease) Generalized anxiety disorder HTN (hypertension) Hyperlipidemia Hypokalemia 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, recurrent severe without psychotic features PAD (peripheral artery disease) Peritonitis (acute) generalized Pneumonia Psychiatric care Rhabdomyolysis Sepsis Septic shock Shock liver Surgical History H/O drainage of abscess (~12/13/20) Intra-abdominal H/O exploratory laparotomy drainage of intra abdominal abscess H/O of hysterectomy with bilateral oophorectomy Status post exploratory laparotomy Family History Mother CHF (congestive heart failure) Social History Smoking and tobacco status: current every day smoker cigarettes Packs smoked per day: 1 Alcohol intake: current Alcohol intake frequency: few times a month Household members: family Marital status: Current occupational status: unemployed History of recent travel: No Vitals/I&O/Wt Last Vital Signs Temp 98.1 F 11/21/21 17:49 Pulse 83 11/21/21 19:10 Resp 18 11/21/21 20:51 BP 106/63 11/21/21 20:51 Pulse Ox 93 11/21/21 20:51 11/21/21 11/21/21 11/21/21 06:59 14:59 22:59 Intake Total 1000 / 1000 Balance 1000 / 1000 Weight last 48 hrs Weight 81.647 kg Physical Exam Narrative: Sister at bedside Const: COMMON NORMALS: no acute distress and patient oriented x3 HENMT: COMMON NORMALS: oropharynx normal Neck/C-Spine: COMMON NORMALS: no JVD Resp: COMMON NORMALS: normal respiratory effort and clear to auscultation bilaterally AUSCULTATION: clear to auscultation bilaterally Cardio: COMMON NORMALS: no JVD, regular rhythm, S1 normal heart sound present, S2 normal heart sound present and No murmurs present (Cardio) RHYTHM: regular rhythm HEART SOUNDS: S1 normal heart sound present and S2 normal heart sound present GI: COMMON NORMALS: Normal to inspection, nondistended, normoactive bowel sounds present, Soft to palpation and non-tender PALPATION: Yes Soft to palpation OTHER: Midline lower abdominal wound, dehiscence at inferior pole packed, some serosanguineous drainage on gauze, ABD pad Extremity: COMMON NORMALS: no joint enlargement and no pedal edema Neuro: COMMON NORMALS: patient oriented x3 and moves all extremities Skin: COMMON NORMALS: no rashes or lesions noted GENERAL SKIN EXAM: no rashes or lesions noted OTHER: Some slough superiorly to dehiscence of the abdominal wound under Hydrofera Blue Data : 11/21/21 19:11 11/21/21 19:11 Micro: Microbiology 11/21/21 21:16 Blood Culture - Preliminary Blood SPECIMEN COLLECTED 11/21/21 21:10 Blood Culture - Preliminary Blood SPECIMEN COLLECTED A&P Assessment and plan (1) Abdominal fluid collection: Lower abdominal pain, continued bleeding, clots, with noted midline lower ventral abdominal wall wound with fluid and gas collection at the base along inferior margin. Heterogenous increased density at the inferior margin of collection like representing blood products. Reported suspected underlying fistula of underlying moderate tethered bowel loops. As per addendum increased density of the inferior margin of presumed abscess collection within the ventral abdominal wall most likely representing layering blood products. No convincing evidence of active bleeding. Some red serosanguineous drainage noted on gauze, ABD pad. Packing is in place. Surgery consulted. Will not remove packing at this time until surgical evaluation. With leukocytosis, chills, mild tachycardia 92 at presentation, possible sepsis, possible septic shock, although hypotension suspected more likely in setting of antihypertensives, hypovolemia, started empirically on antibiotic coverage with blood cultures obtained. Cefepime, flagyl, vanc. Received a dose of Solu-Medrol in ER. Will see if I can add cortisol level to previously collected lab. Status: Acute (2) Hypotension: Cannot exclude possible sepsis and septic shock, although he is also on multiple antihypertensives. She does report appetite has been without change recently, but she feels could have gotten dehydrated. He is on amlodipine, HCTZ, valsartan. Hold. So far appears to be showing response to fluid resuscitation. Monitor blood pressures. Status: Acute (3) Surgical site infection: Empiric antibiotic coverage for now for possible infection of collection at the base of the surgical wound with dehiscence. Status: Acute (4) Open abdominal wall wound: Normally follows with wound care. Daily packing accomplished with assistance of her sister, home health. Applies Hydrofera Blue to slough area superiorly of the dehiscence. Covered with gauze, ABD. Status: Acute (5) Abnormal urinalysis: Denies urinary symptoms. Would repeat urinalysis in the morning. Status: Acute Plan COPD not in exacerbation WILEY HTN HLD Lumbosacral radiculopathy Depression PAD Other chronic medical problems noted. Attestations Medical Necessity Statement*: Place in observation for additional assessment of wound dehiscence with pain, bleeding, possible bowel fistulization, possible sepsis, needing surgical assessment, hypotension. Coding Level of Care Code Acute Utility Aide for [facility] Fwd Diagnoses Hypotension I95.9 Surgical site infection T81.49XA Open abdominal wall wound S31.109A Abdominal fluid collection R18.8 Abnormal urinalysis R82.90
[2021-11-21 21:59] VITALS: BP 102/57; PULSE 86; RESP 18; O2SAT 92
[2021-11-21] MEDS: vancomycin 1,000 MG in sodium chloride 0.9% 250 ML 250 MG IV (22:11)
[2021-11-21 22:35] LABS: Cortisol Random 12.11 ug/dL (2.47-19.5)
[2021-11-21 23:06] VITALS: BP 101/59
[2021-11-22] VITALS (12 sets, daily range): BP systolic 90–113; BP diastolic 43–72; PULSE 59–95; RESP 12–20; TEMP 36.7–36.9; O2SAT 93–99
[2021-11-22] MEDS: pantoprazole DR 40 mg Tablet PO (02:10)
[2021-11-22] MEDS: acetaminophen 325 mg Tablet 650 MG PO (02:10)
--- NOTE | 2021-11-22 02:10 | PC.NURSE ---
pt placed on 3L/NC due to decreased oxygen sats while sleeping (86% RA).
[2021-11-22] MEDS: amitriptyline 25 mg Tablet PO (02:11)
--- NOTE | 2021-11-22 02:11 | PC.PHAR ---
Vancomycin is dosed at 1500mg IVPB every 24 hours to produce a predicted trough level of 14.25 (population based pharmacokinetic analysis). A trough level has been ordered from the lab to be obtained before the fourth dose to confirm and adjust if needed.
[2021-11-22] MEDS: metroNIDAZOLE IV 500 MG/100 ML PREMIX 100 MG IV ×2 (04:08→12:33)
[2021-11-22 04:16] LABS: Basophils % 0.2 %; Eosinophils % 0.1 %; Hematocrit 40.2 % (37.0-47.0); Hemoglobin 12.8 g/dL (11.5-15.3); Lymphocytes # 0.6 10^3/uL (0.8-4.8); Lymphocytes % 5.3 %; Mean Corpuscular HGB Conc 31.8 g/dL (30.0-36.0); Mean Corpuscular Hemoglobin 28.6 pg (28.0-34.0); Mean Corpuscular Volume 89.9 fl (81-99); Mean Platelet Volume 9.6 fL (7.4-10.4); Monocytes # 0.2 10^3/uL (0.2-0.9); Monocytes % 1.8 %; Neutrophils # 9.56 10^3/uL (1.8-7.7); Neutrophils % 91.9 %; Nucleated Red Blood Cells % 0 %; Platelet Count 162 10^3/cmm (130-400); Red Blood Count 4.47 10^6/uL (4.1-5.3); Red Cell Distribution Width 14.2 % (12.1-15.1); White Blood Count 10.4 10^3/uL (4.0-10.0)
[2021-11-22 04:34] LABS: Alanine Aminotransferase 7 U/L (0-33); Albumin Level 3.1 g/dL (3.5-5.2); Alkaline Phosphatase 103 IU/L (35-105); Anion Gap 10.9 (5-19); Aspartate Amino Transferase 10 U/L (0-32); Blood Urea Nitrogen 14 mg/dL (6-20); Calcium 8.2 mg/dL (8.5-10.5); Carbon Dioxide 24 mmol/L (22-29); Chloride 104 mmol/L (98-107); Globulin 3.5 g/dL (1.3-4.6); Glucose 212 mg/dL (65-115); Osmolality Calculated 287 mOsm/kg (285-295); Potassium 3.9 mmol/L (3.5-5.1); Sodium 135 mmol/L (136-145); Total Bilirubin 0.6 mg/dL (0.15-1.2); Total Protein 6.6 g/dL (6.6-8.7)
--- NOTE | 2021-11-22 05:44 | PM.CONSULT ---
Providers/Reason For Consult Consulting Physician/Specialty*: Toño Villegas MD Reason for Consult*: Abdominal wound Concerning for underlying fistula Requesting Physician: Attending Physician: Flakito Rose Primary Care Provider: Paulo Stevens MD History of Present Illness History of Present Illness Chief Complaint: Wound issues History of present illness:Ms.Ann Jean Carlos Jones is a Pleasant 56 year old female Well-known to me from previous clinical encounters. 07/08/2021 This is a pleasant 55 years old female patient with complicated surgical history as patient did have an exploratory laparotomy for generalized peritonitis and the source of perforation was not revealed at that time likely a perforated sigmoid diverticulitis, the pelvis at that time was frozen and patient subsequently healed yet she did develop chronic discharging sinus from her abdominal wound that would intermittently discharge pus encloses and so forth. The patient does complain of history of abdominal pain and she did have a colonoscopy before few years and polyps were removed. Patient comes today for diagnostic colonoscopy and in preparation for potential surgical intervention to address the chronic discharging sinus of her abdominal wall wound. Follow-up visit 08/01/2021 Patient comes today status post barium enema as the colonoscopy was aborted and was limited to flex sigmoidoscopy due to the severe stricture of the sigmoid colon that was followed by a barium enema study as a complementary evaluation to the proximal part of the colon and it did show: 1. Marked distention of the distal sigmoid colon with tortuosity and moderate to severe stricture extending over approximately 8 cm with mucosal irregularity. This corresponds to the area of suspected diverticulitis on the prior CT April 29, 2021. This may represent chronic stricture from diverticulitis however Neoplasm should be excluded considering persistence. Consider further evaluation with contrast-enhanced CT abdomen pelvis and/or sigmoidoscopy with biopsy 2. The left colon and splenic flexure are normal in appearance. Barium only reaches the mid transverse colon after several minutes. Hepatic flexure, right ascending colon, and cecum not evaluated. Recommend follow-up colonoscopy/barium enema screening after stricture evaluation/treatment 3. Cholecystectomy. Patient continues to have persistent abdominal wall sinus drainage, on a previous CT scan patient does have hepatomegaly with cirrhosis and portal hypertension/splenomegaly on the CT scan 04/29/2021 Interim history 09/28/21 Patient comes today as a follow-up as she has been following with me at the wound care [place] for chronic sinus located at the anterior abdominal wall status post exploratory laparotomy about 2 years ago. The patient maintained to have chronic drainage and multiple rounds of antibiotics were initiated, frequent I&D that clears up and then builds up pus and opens again. Last imaging studies that the patient was supposed to get is a mesenteric duplex to evaluate for portal hypertension with appropriate planning for potential surgical intervention, that did not take place yet. Over the past couple of days patient had excessive drainage and developed a fever but she did not want to go to the ER because of her concerns about COVID-19 pandemic, I elected to have the patient seen in the office for further care and currently she does not have any constitutional symptoms and minimal drainage from the abdominal wall wound. Ms. Jones has been following with me at [facility] on weekly basis and undergone surgical intervention for wound exploration because of a chronic sinus drainage without presence of Enteric contents or stools. On 10/03/21 1-Anterior abdominal wall wound exploration 2-Sharp debridement of abdominal wall wound.Patient continued to follow-up with me at the [facility] with serial debridements and in the interim and is infected with exposed opening because of the underlying concern of hypertension but showed normal findings and a hepatology consultation was initiated and conservative measures were going to go. Patient presented to the emergency department with chills and lower abdominal pain.Associated with soft blood pressure but responded appropriately to IV fluid resuscitation,also was a concern of the patient coming from wound, undergone blood work that showed leukocytosis of 15,000+ and a hemoglobin of 14 peritonitis plus a normal lactic acid and monitor serum creatinine. Undergone a CT of the abdomen pelvis that did show: Midline lower ventral abdominal wall wound with fluid and gas collection at the base of the wound along the inferior margin. Heterogeneous increased density at the inferior margin of the collection likely representing blood products. Suspect underlying fistula to the underlying matted, tethered bowel loops. General surgery was consulted for further evaluation. Patient was seen and evaluated in the ER in room #6 with nursing staff Abby Review of Systems General: Reports: 10 or more systems reviewed and unremarkable except in HPI and below Medications/Allergies Home Medications Medication Instructions Recorded Confirmed Last Taken Type valsartan 80 mg tablet 80 mg PO DAILY@09 09/17/19 11/21/21 11/21/21 History baclofen 10 mg tablet 10 mg PO TID PRN 11/25/19 11/21/2122 History amlodipine 5 mg tablet 5 mg PO DAILY@12/13/20 11/21/21 11/21/21 History pantoprazole 40 mg tablet,delayed 40 mg PO BID@12/13/20 11/21/21 11/21/21 History release (Protonix) ondansetron HCl 4 mg tablet 4 mg PO Q6H PRN #20 tab 12/15/20 11/21/21 10/02/21 Rx (Zofran) atorvastatin 10 mg tablet 10 mg PO DAILY 02/01/21 11/21/21 11/21/21 History hydrochlorothiazide 50 mg tablet 25 mg PO DAILY tab 03/30/21 11/21/21 11/21/21 History potassium chloride 20 mEq 40 meq PO DAILY tab 05/25/21 11/21/21 11/21/21 History tablet,extended release(part/cryst) (Klor-Con M) amitriptyline 25 mg tablet 25 mg PO BEDTIME #90 tab 09/14/21 11/21/21 11/20/21 Rx citalopram 40 mg tablet (Celexa) 40 mg PO .morning #90 tab 09/14/21 11/21/21 11/21/21 Rx alprazolam 1 mg tablet (Xanax) 1 mg PO TID PRN #90 tab 11/02/21 11/21/21 11/21/21 Rx gabapentin 300 mg capsule 300 mg PO TID 11/21/21 11/21/21 11/21/21 History Allergies Allergy/AdvReac Type Severity Reaction Status Date / Time amoxicillin Allergy Severe ALGY-Rash Verified 11/22/21 06:35 codeine Allergy Unknown rash, Verified 11/22/21 06:35 itching Penicillins Allergy Unknown rash, Verified 11/22/21 06:35 itching Sulfa (Sulfonamide Allergy Unknown rash, Verified 11/22/21 06:35 Antibiotics) itching Iodinated Contrast Media Allergy Unknown Verified 11/22/21 06:35 Current Medications Generic Name Dose Route Start Last Admin Trade Name Freq PRN Reason Stop Dose Admin Acetaminophen 650 mg 11/22/21 01:46 11/22/21 02:10 Acetaminophen 325 Mg Tablet PO 650 mg Q6H PRN Administration Mild/Mod Pain Or Temp >/= 101 Amitriptyline HCl 25 mg 11/22/21 01:46 11/22/21 02:11 Amitriptyline 25 Mg Tablet PO 25 mg BEDTIME BRITTNEY Administration Metronidazole 500 mg in 100 mls @ 100 mls/hr 11/22/21 04:00 11/22/21 04:08 Flagyl Iv IV 100 mls/hr Q8H BRITTNEY Administration Protocol Pantoprazole Sodium 40 mg 11/22/21 01:46 11/22/21 02:[address] 40 Mg Tablet PO 40 mg BID@ BRITTNEY Administration PFSH Acute PFSH: Medical History Abdominal wall abscess at site of surgical wound Acute kidney injury Bowel perforation COPD (chronic obstructive pulmonary disease) Generalized anxiety disorder HTN (hypertension) Hyperlipidemia Hypokalemia 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, recurrent severe without psychotic features PAD (peripheral artery disease) Peritonitis (acute) generalized Pneumonia Psychiatric care Rhabdomyolysis Sepsis Septic shock Shock liver Surgical History H/O drainage of abscess (~12/13/20) Intra-abdominal H/O exploratory laparotomy drainage of intra abdominal abscess H/O of hysterectomy with bilateral oophorectomy Status post exploratory laparotomy Family History Mother CHF (congestive heart failure) Social History Smoking and tobacco status: current every day smoker cigarettes Packs smoked per day: 1 Alcohol intake: current Alcohol intake frequency: few times a month Household members: family Marital status: Current occupational status: unemployed History of recent travel: No Vitals/I&O/Wt Last Vital Signs Temp 98.1 F 11/21/21 17:49 Pulse 86 11/21/21 21:59 Resp 18 11/22/21 01:10 BP 112/62 11/22/21 04:02 Pulse Ox 97 11/22/21 04:02 11/21/21 11/21/21 11/22/21 14:59 22:59 06:59 Intake Total 1000 / 1000 1400 / 2400 Balance 1000 / 1000 1400 / 2400 Weight last 48 hrs Weight 180 lb Physical Exam Narrative: Patient is conscious alert oriented X3 No apparent distress BMI 34 Head and neck examination PERRLA no masses no cervical lymphadenopathy no jaundice Cardiac examination audible S1-S2 no murmurs no gallops no arrhythmias Chest is clear bilateral,abscence of Rhonchi or wheezes,no surgical emphysema Abdomen nontender nondistended soft no organomegaly guarding or rigidity/no signs of peritonitis Presence of lower abdominal wound 1 x 2 inches and at the inferior portion there is a tunnel about 3 inches without evidence of succus or stool. Pale granulation tissue is appreciated. No evidence of clinically detected enterocutaneous fistula Extremities no cyanosis no clubbing no edema Data : 11/22/21 04:12 11/22/21 04:12 Micro: Microbiology 11/21/21 21:16 Blood Culture - Preliminary Blood SPECIMEN COLLECTED 11/21/21 21:10 Blood Culture - Preliminary Blood SPECIMEN COLLECTED A&P Assessment and plan (1) Open abdominal wall wound: Daily packing of the wound with quarter inch Nu Gauze wet-to-dry followed by ABDs Patient can start clear liquid diet and if tolerates diet can advance as tolerated Likely the patient had some bleeding from hypergranulation tissue in the wound tract I do not appreciate clinically evidence of enterocutaneous fistula Continue to monitor the patient's clinically Patient continues to do well through the day she can be discharged from general surgery standpoint of view and follow-up with me at the wound care center as scheduled Assurance and education All questions have been answered and all concerns have been addressed to patient's satisfaction. Status: Acute Consult Attestations Medical Necessity Statement: Per admitting service Time Spent in Patient Care: 16 - 35 minutes Coding Level of Care Code Acute Lapping Machine Set Up Operator for [facility] Fwd Diagnoses Open abdominal wall wound S31.109A
[2021-11-22] MEDS: citalopram 20 mg Tablet 40 MG PO (06:17)
--- NOTE | 2021-11-22 07:28 | PC.NURSE ---
Patient sitting up in bed, requests something to drink. Patient vitals stable, call light and belongings within reach.
[2021-11-22] MEDS: cefepime 2,000 MG in sodium chloride 0.9% (plus) 50 ML 100 MG IV (08:23)
[2021-11-22] MEDS: atorvastatin 40 mg Tablet 10 MG PO (08:24)
--- NOTE | 2021-11-22 08:57 | PC.NURSE ---
250 ml clear fluid oral intake.
--- NOTE | 2021-11-22 09:00 | PC.NURSE ---
Vancomycin trough drawn and walked to lab.
[2021-11-22] MEDS: vancomycin 1,500 MG/300 ML PIGGYBACK 150 MG IV (10:35)
--- NOTE | 2021-11-22 12:28 | P.PN_ITS ---
Subjective Subjective: Appreciate general surgery recommendations Patient is laying comfortably in her bed She can go to [facility] instead of ICU Blood pressure is getting better, continue IV fluids Hold antihypertensive regimen Currently on clear liquid diet Daily dressing change as per general surgery recommendation Patient was seen in the ER Her abdomen is nontender not active emesis or febrile events noted Patient does not have sepsis she has abnormal vitals however there is no endorgan damage Vitals/I&O/Wt Last Vital Signs Temp 98.1 F 11/22/21 12:27 Pulse 95 11/22/21 12:27 Resp 20 H 11/22/21 12:27 BP 100/61 11/22/21 12:27 Pulse Ox 95 11/22/21 12:27 11/21/21 11/22/21 11/22/21 22:59 06:59 14:59 Intake Total 1000 / 1000 1400 / 2400 Balance 1000 / 1000 1400 / 2400 Weight last 48 hrs Weight 81.647 kg Physical Exam Narrative: Patient was laying comfortably in her bed Abdomen is soft No active drainage Dressing is clean Bowel sound present No signs of peritonitis She is awake and alert Saturating well on room air Blood pressure 100/61 mmHg Nonfocal neuro exam awake and alert Pleasant and cooperative during my evaluation Data : 11/22/21 04:12 11/22/21 04:12 Micro: Microbiology 11/21/21 21:16 Blood Culture - Preliminary Blood SPECIMEN COLLECTED 11/21/21 21:10 Blood Culture - Preliminary Blood SPECIMEN COLLECTED A&P Assessment and plan (1) Abnormal urinalysis: Status: Acute (2) Abdominal fluid collection: Status: Acute (3) Hypotension: Status: Acute (4) Surgical site infection: Status: Acute (5) Open abdominal wall wound: Status: Acute (6) Nicotine dependence, cigarettes, uncomplicated: Status: Chronic (7) Cirrhosis: Status: Acute Qualifiers: Hepatic cirrhosis type: unspecified hepatic cirrhosis (8) Acid reflux: Status: Acute Plan Abdominal wall wound infection Concern for sepsis Abnormal vitals however no endorgan damage noted Lactic acid is normal Blood pressure is soft secondary to use of antihypertensive regimen , Continue IV fluids and antibiotics for now Appreciate general surgery recommendations Abnormal UA no active signs of UTI, covered with antibiotics Albumin is 3.1 No active chest pain Currently on clear liquid diet We will follow with general surgery recommendations tomorrow, patient was not interested in staying however I reinforced the importance of staying in the hospital and use of IV fluids and antibiotics as her pressure is soft, patient is agreeable, Attestations Medical Necessity Statement*: Continue medical management Time Spent in Patient Care: 20mins Coding Level of Care Code Acute Rn Document Improvement Specialist for [facility] Fwd Diagnoses Abnormal urinalysis R82.90 Abdominal fluid collection R18.8 Hypotension I95.9 Surgical site infection T81.49XA Open abdominal wall wound S31.109A Nicotine dependence, cigarettes, uncomplicated F17.210 Cirrhosis K74.60 Hepatic cirrhosis type: unspecified hepatic cirrhosis Acid reflux K21.9
--- NOTE | 2021-11-22 13:48 | PC.NURSE ---
Patient states she wants to leave and is leaving today, RN called provider.
--- NOTE | 2021-11-22 13:57 | PC.NURSE ---
Calling report, states to call back in 10 minutes, patient okay with staying for now if she gets put in a room.
--- NOTE | 2021-11-22 14:17 | PC.NURSE ---
Report given to Cathleen AMEZQUITA.
--- NOTE | 2021-11-22 14:54 | PC.NURSE ---
Addendum entered by Wolf Richardson RN 11/22/21 14:54: Patient belongings went with patient. Original Note: Patient wheeled to 255-1.Patient stable upon transfer.
--- NOTE | 2021-11-22 18:20 | P.DS_ITS ---
Discharge Providers Date of Admission: 11/22/21 03:56 Date of Discharge: November 22, 2021 Attending Provider at Admission: Flakito Rose Attending Provider at Discharge: Maximino Chavez MD Primary Care Provider: Paulo Stevens MD Diagnoses at Discharge Discharge Diagnosis (1) Open abdominal wall wound: Status: Acute Reason for Visit Reason for Visit: ABD Surgical incision Bleeding Hospital Course Hospital Course Admitting note by Dr. Rose pleasant 56-year-old lady with history of bowel perforation, exploratory laparotomy in March 2020, subsequently with wound dehiscence, following with wound care clinic, packing the wound with assistance of her sister, as well as home health.? Yesterday she was starting to have some chills, today she was experiencing lower abdominal pain, as well as blood and some clots noted coming out from the wound. In ER with noted leukocytosis, 15.8, also with low blood pressure, 82/46, lower abdominal tenderness, CT abdomen pelvis was obtained, with finding of midline lower ventral abdominal wall wound with fluid and gas collection at the base of the wound along the inferior margin.? Heterogenous increased density at the inferior margin of the collection likely presenting blood products.? Suspected underlying fistula to the underlying matted, tethered bowel loops.? The increased density at the inferior margin of the presumed abscess collection within the ventral abdominal wall most likely represents layering blood products.? There is no convincing evidence for active bleeding. Surgery was contacted for consultation.? She is empirically started on antibiotic coverage as well.? Receiving fluid resuscitation due to ongoing hypotension.? Appears to be showing some response, blood pressure up to 106/63. Reports she has been taking her medications.? Is on amlodipine, HCTZ, valsartan Consult note by Dr. Villegas Daily packing of the wound with quarter inch Nu Gauze wet-to-dry followed by ABDs Patient can start clear liquid diet and if tolerates diet can advance as ismael ated Likely the patient had some bleeding from hypergranulation tissue in the wound tract I do not appreciate clinically evidence of enterocutaneous fistula Continue to monitor the patient's clinically Patient continues to do well through the day she can be discharged from general surgery standpoint of view and follow-up with me at the wound care center as scheduled Assurance and education Hospital course Patient was admitted initially for concern of abdominal wall wound infection however no such signs were detected on the CT scan she remained afebrile no signs of sepsis were present, no endorgan damage. Her dressing was unremarkable. Abdominal exam was benign. Patient blood pressure did improve to IV fluid hydration however she was adamant that she does not want to stay especially because of the fact that Dr. Villegas recommended outpatient follow- up. She was getting agitated and wanted to leave AMA. Dr. Villegas called me in the evening to update me regarding his impression about her open abdominal wall wound, he decided to discharge her and have her follow-up with wound care clinic on Sunday. I will hold antihypertensive regimen for at least 1 week and hold gabapentin for about 2 days and discharged her on metronidazole. Physical Exam Narrative: Patient was laying comfortably in her bed Abdomen is soft No active drainage Dressing is clean Bowel sound present No signs of peritonitis She is awake and alert Saturating well on room air Blood pressure 100/61 mmHg at the time of my evaluation Nonfocal neuro exam awake and alert Pleasant and cooperative during my evaluation Discharge Data Studies Completed and Pending Completed Studies During Hospitalization Category Date Time Status CTA abdomen pelvis [CT angio abdomen pelvis 55304] Cat Scan 11/21/21 18:31 Completed Urgent Pending at discharge Category Date Time Status Blood Culture Stat Lab 11/21/21 21:16 Results CRP [C Reactive Protein] AM LABS Lab 11/23/21 04:00 Ordered Complete Blood Count w/Auto AM LABS Lab 11/23/21 04:00 Ordered Complete Blood Count w/Auto AM LABS Lab 11/24/21 04:00 Ordered Comprehensive Metabolic Panel AM LABS Lab 11/23/21 04:00 Ordered Comprehensive Metabolic Panel AM LABS Lab 11/24/21 04:00 Ordered Procalcitonin AM LABS Lab 11/23/21 04:00 Ordered UA w/Reflex to Microscope [Urinalysis] Stat Lab 11/22/21 13:58 Ordered Vancomycin Trough Timed Lab 11/25/21 09:00 Ordered Radiology Impressions Abdomen/Pelvis CTA 11/21/21 18:31 IMPRESSION: Midline lower ventral abdominal wall wound with fluid and gas collection at the base of the wound along the inferior margin. Heterogeneous increased density at the inferior margin of the collection likely representing blood products. Suspect underlying fistula to the underlying matted, tethered bowel loops. ADDENDUM: 11/21/21 1348 THIS REPORT CONTAINS FINDINGS THAT MAY BE CRITICAL TO PATIENT CARE. The findings were verbally communicated via telephone conference with JOHN BLACKWELL at 8:43 PM CDT on 11/21/2021. The findings were acknowledged and understood. The increased density at the inferior margin of the presumed abscess collection within the ventral abdominal wall most likely represents layering blood products. There is no convincing evidence for active bleeding. Laboratory Results WBC 10.4 10^3/uL (4.0-10.0) H 11/22/21 04:12 RBC 4.47 10^6/uL (4.1-5.3) 11/22/21 04:12 Hgb 12.8 g/dL (11.5-15.3) 11/22/21 04:12 Hct 40.2 % (37.0-47.0) 11/22/21 04:12 MCV 89.9 fl (81-99) 11/22/21 04:12 MCH 28.6 pg (28.0-34.0) 11/22/21 04:12 MCHC 31.8 g/dL (30.0-36.0) 11/22/21 04:12 RDW 14.2 % (12.1-15.1) 11/22/21 04:12 Plt Count 162 10^3/cmm (130-400) 11/22/21 04:12 MPV 9.6 fL (7.4-10.4) 11/22/21 04:12 Neut % (Auto) 91.9 % 11/22/21 04:12 Lymph % (Auto) 5.3 % 11/22/21 04:12 [place] % (Auto) 1.8 % 11/22/21 04:12 Eos % (Auto) 0.1 % 11/22/21 04:12 Baso % (Auto) 0.2 % 11/22/21 04:12 Neut # (Auto) 9.56 10^3/uL (1.8-7.7) H 11/22/21 04:12 Lymph # (Auto) 0.6 10^3/uL (0.8-4.8) L 11/22/21 04:12 [place] # (Auto) 0.2 10^3/uL (0.2-0.9) 11/22/21 04:12 Eos # (Auto) 0.0 10^3/uL (0.0-0.8) 11/22/21 04:12 Baso # (Auto) 0.0 10^3/uL (0.0-0.1) 11/22/21 04:12 Nucleated RBC % (auto) 0 % 11/22/21 04:12 Nucleated RBCs # 0.0 /100WBC 11/22/21 04:12 Sodium 135 mmol/L (136-145) L 11/22/21 04:12 Potassium 3.9 mmol/L (3.5-5.1) 11/22/21 04:12 Chloride 104 mmol/L (98-107) 11/22/21 04:12 Carbon Dioxide 24 mmol/L (22-29) 11/22/21 04:12 Anion Gap 10.9 (5-19) 11/22/21 04:12 BUN 14 mg/dL (6-20) 11/22/21 04:12 Creatinine 0.9 mg/dL (0.5-0.9) 11/22/21 04:12 GFR Calculation 65.0 mL/min (90-130) L 11/22/21 04:12 Glucose 212 mg/dL (65-115) H 11/22/21 04:12 Calculated Osmolality 287 mOsm/kg (285-295) 11/22/21 04:12 Lactate 1.4 mmol/L (0.5-2.2) 11/21/21 19:11 Calcium 8.2 mg/dL (8.5-10.5) L 11/22/21 04:12 Total Bilirubin 0.6 mg/dL (0.15-1.2) 11/22/21 04:12 AST 10 U/L (0-32) 11/22/21 04:12 ALT 7 U/L (0-33) 11/22/21 04:12 Alkaline Phosphatase 103 IU/L (35-105) 11/22/21 04:12 Total Protein 6.6 g/dL (6.6-8.7) 11/22/21 04:12 Albumin 3.1 g/dL (3.5-5.2) L 11/22/21 04:12 Globulin 3.5 g/dL (1.3-4.6) 11/22/21 04:12 Lipase 21 U/L (13-60) 11/21/21 19:11 Random Cortisol 12.11 ug/dL (2.47-19.5) 11/21/21 19:11 Urine Color Yellow (Yellow) 11/21/21 19:17 Urine Appearance Sl hazy (CLEAR) 11/21/21 19:17 Urine pH 5 (5-7) 11/21/21 19:17 Ur Specific [place] 1.020 (1.005-1.030) 11/21/21 19:17 Urine Protein Trace (Negative) 11/21/21 19:17 Urine Glucose (UA) Norm (Normal) 11/21/21 19:17 Urine Ketones Negative (Negative) 11/21/21 19:17 Urine Blood Neg (Negative) 11/21/21 19:17 Urine Nitrate Negative (Negative) 11/21/21 19:17 Urine Bilirubin 1+ (Negative) H 11/21/21 19:17 Urine Urobilinogen 4 mg/dL (Negative) H 11/21/21 19:17 Ur Leukocyte Esterase Negative (Negative) 11/21/21 19:17 Urine RBC 0-4 /hpf (0-2) H 11/21/21 19:17 Urine WBC 5-10 /hpf (0-5) H 11/21/21 19:17 Ur Squamous Epith Cells 10-15 /hpf (0-5) H 11/21/21 19:17 Amorphous Sediment Not Reportable 11/21/21 19:17 Urine Bacteria 1+ /hpf (NONE) H 11/21/21 19:17 Hyaline Casts 5-10 /lpf H 11/21/21 19:17 Urine Mucus 1+ /hpf 11/21/21 19:17 Blood Type O Positive 11/21/21 18:30 Rho(D) Type Positive 11/21/21 18:30 Antibody Screen Negative 11/21/21 18:30 Vitals Last Vital Signs Temp 98.2 F 11/22/21 15:29 Pulse 78 11/22/21 15:29 Resp 18 11/22/21 15:29 BP 95/61 11/22/21 15:29 Pulse Ox 93 11/22/21 15:29 Discharge Plan Discharge Patient Disposition: Home Condition: Stable Prescriptions: New metronidazole 500 mg tablet 500 mg PO Q8H 3 Days Qty: 9 0RF Continued atorvastatin 10 mg tablet 10 mg PO DAILY 0RF potassium chloride [Klor-Con M20] 20 mEq tablet,ER particles/crystals 40 meq PO DAILY 0RF Celexa 40 mg tablet 40 mg PO .morning Qty: 90 2RF Hold Instructions: Resume on 04/07/21. Rx Instructions: Take one tablet every morning amitriptyline 25 mg tablet 25 mg PO BEDTIME Qty: 90 2RF Rx Instructions: Take one tablet at bedtime baclofen 10 mg tablet 10 mg PO TID PRN (Reason: Spasms) 0RF alprazolam [Xanax] 1 mg tablet 1 mg PO TID PRN (Reason: anxiety) Qty: 90 3RF pantoprazole [Protonix] 40 mg Tablet,Delayed Release (Dr/Ec) 40 mg PO BID@,23 0RF ondansetron HCl [Zofran] 4 mg tablet 4 mg PO Q6H PRN (Reason: nausea and vomiting) Qty: 20 0RF Held valsartan 80 mg tablet 80 mg PO DAILY@09 0RF Hold Instructions: Resume on 11/29/21. amlodipine 5 mg tablet 5 mg PO DAILY@09 0RF Hold Instructions: Resume on 11/29/21. hydrochlorothiazide 50 mg tablet 25 mg PO DAILY 0RF Hold Instructions: Resume on 11/29/21. gabapentin 300 mg capsule 300 mg PO TID 0RF Hold Instructions: Resume on 11/24/21. Discharge Orders: Discharge Order (Routine); Ordered 11/22/21 Ordered By: Maximino Chavez Referrals: Paulo Stevens MD [Primary Care Provider] - Toño Villegas MD [Physician] - 11/25/21 (Return to wound care center as scheduled this coming Sunday) Discharge Diet: Advance as tolerated Discharge Activity: Resume usual activity Patient Instructions: Wound Infection (GEN), Opioid Safety Activity Restrictions/Additional Instructions: 1-nutrition optimization 2-wound care in the form of daily packing using wet-to-dry quarter inch Nu Gauze followed by ABDs 3-management of medical comorbidities per primary care provider 4-education about anti-hypertension medications 5-assurance and education All questions have been answered and all concerns have been addressed to patient's satisfaction. Discharge Attestations Time Spent in Discharge Care*: less than 30 min Status at Discharge: Cognitive status at discharge: cognitively intact , Behavioral status at discharge: cooperative , Quality Metrics Clinical Quality Measures [ No reported AMI, CVA or VTE this stay] Coding Level of Care Code Acute Chg FW DC note Diagnoses Open abdominal wall wound S31.109A
--- NOTE | 2021-11-22 20:32 | PC.NURSE ---
PATIENT DISCHARGED TO HOME AT THIS TIME. ALERT AND ORIENTED, VSS. PATIENT HAD NO COMPLAINTS OF PAIN VOICED AT DISCHARGE. PATIENT INDEPENDENTLY AMBULATED OFF FLOOR ACCOMPAINED BY SISTER. PATIENT BELONGINGS SENT WITH PATIENT AT TIME OF DISCHARGE. DISCHARGE INSTRUCTIONS SENT WITH PATIENT.
== END 2021-11-22 20:00 | disposition home or self-care (01) ==
LOC: ER 11-22 02:15 → ER IP 11-22 04:51 → MEDSURG 11-22 13:59
PROVIDERS: Admitting Provider Internal Medicine; Emergency Provider Emergency Medicine; PCP Family Medicine; Visit Provider Internal Medicine
DX: S31.109A Unspecified open wound of abdominal wall, unspecified quadrant without penetration into peritoneal cavity, initial encounter (principal); X58.XXXA Exposure to other specified factors, initial encounter; T81.49XA Infection following a procedure, other surgical site, initial encounter; R82.90 Unspecified abnormal findings in urine; R18.8 Other ascites; I95.9 Hypotension, unspecified; F17.210 Nicotine dependence, cigarettes, uncomplicated; K74.60 Unspecified cirrhosis of liver; K21.9 Gastro-esophageal reflux disease without esophagitis; J44.9 Chronic obstructive pulmonary disease, unspecified; I10 Essential (primary) hypertension; Z82.49 Family history of ischemic heart disease and other diseases of the circulatory system; F41.9 Anxiety disorder, unspecified
CPT/HCPCS: 36415; 74174; 80053; 81001; 82533; 83605; 83690; 85025; 86850; 86900; 87040; 96365; 96367; 96375; 99285; G0378; J0692; J1200; J2930; J3370; J7030; J7050; Q9967; S0030

== ENCOUNTER → 2021-11-25 08:44 | Outpatient (BNVA) | payer MEDICARE, MEDICAID, SELFPAY | PROVIDERS: PCP Family Medicine; Visit Provider Surgery | DX: I96 Gangrene, not elsewhere classified (principal); L98.492 Non-pressure chronic ulcer of skin of other sites with fat layer exposed | CPT/HCPCS: 11043 ==

== ENCOUNTER 2021-11-28 08:14 | Outpatient (CLI) | payer MEDICARE, MEDICAID, SELFPAY ==
--- NOTE | 2021-11-28 08:37 | CT_ITS ---
WS: [email or web address] LDCT LUNG CANCER SCREENING TECHNIQUE: Noncontrast CT of the chest with coronal and sagittal reformatted images. CLINICAL INFORMATION: HX OF TOBACCO USE COMPARISON: April 22, 2020 DLP: 75.39 mGy.cm DIvol: Mean CTDIvol: 1.60 (mGy) All CT scans at [facility] use at least one of these dose optimization techniques: automat ed exposure control; mA and/or kV adjustment per patient size (includes targeted exams where dose is matched to clinical indication); or iterative reconstruction. FINDINGS: Moderate chronic emphysematous changes. No acute pulmonary infiltrates. No focal pneumonia or pleural fluid. A few tiny noncalcified subcentimeter nodules RIGHT upper lobe the largest measuring 3.5 mm. Aortic calcification. A few prominent peribronchial lymph nodes similar to 2020 nonspecific but likel y reactive. Mild coronary calcification. No axillary lymphadenopathy. Small esophageal hiatal hernia. Hepatomegaly with cirrhotic liver. Adrenal glands are normal. CT/CT lung screening [id number] IMPRESSION: Cirrhotic configuration to the liver. Recommend correlation with li lynsey function tests. LUNG-RADS: 2S-Benign Appearance or Behavior with Significant Findings FOLLOW UP: 12 Month: Continue annual screening with LDCT
== END 2021-11-28 08:15 | disposition home or self-care (01) ==
LOC: RAD 08:15
PROVIDERS: PCP Family Medicine; Visit Provider Family Medicine
DX: Z12.2 Encounter for screening for malignant neoplasm of respiratory organs (principal); Z87.891 Personal history of nicotine dependence
CPT/HCPCS: 71271

== ENCOUNTER → 2021-12-02 12:26 | Outpatient (BNVA) | payer MEDICARE, MEDICAID, SELFPAY | PROVIDERS: PCP Family Medicine; Visit Provider Surgery | DX: T81.89XA Other complications of procedures, not elsewhere classified, initial encounter (principal); I96 Gangrene, not elsewhere classified; X58.XXXA Exposure to other specified factors, initial encounter | CPT/HCPCS: 15271; Q4110 ==

== ENCOUNTER → 2021-12-09 08:48 | Outpatient (BNVA) | payer MEDICARE, MEDICAID, SELFPAY | PROVIDERS: PCP Family Medicine; Visit Provider Emergency Medicine | DX: I96 Gangrene, not elsewhere classified (principal); T81.89XA Other complications of procedures, not elsewhere classified, initial encounter; Y83.8 Other surgical procedures as the cause of abnormal reaction of the patient, or of later complication, without mention of misadventure at the time of the procedure; F17.210 Nicotine dependence, cigarettes, uncomplicated | CPT/HCPCS: 11042; A6250 ==

== ENCOUNTER → 2021-12-14 10:03 | Outpatient (BNVA) | payer MEDICARE, MEDICAID, SELFPAY | PROVIDERS: PCP Family Medicine; Visit Provider Surgery | DX: S31.109A Unspecified open wound of abdominal wall, unspecified quadrant without penetration into peritoneal cavity, initial encounter (principal); X58.XXXA Exposure to other specified factors, initial encounter; F17.210 Nicotine dependence, cigarettes, uncomplicated | CPT/HCPCS: 99213 ==

== ENCOUNTER → 2021-12-16 08:42 | Outpatient (BNVA) | payer MEDICARE, MEDICAID, SELFPAY | PROVIDERS: PCP Family Medicine; Visit Provider Surgery | DX: T81.89XA Other complications of procedures, not elsewhere classified, initial encounter (principal); Y83.8 Other surgical procedures as the cause of abnormal reaction of the patient, or of later complication, without mention of misadventure at the time of the procedure; I96 Gangrene, not elsewhere classified; F17.210 Nicotine dependence, cigarettes, uncomplicated | CPT/HCPCS: 11043 ==

== ENCOUNTER → 2021-12-22 07:24 | Outpatient (BNVA) | payer MEDICARE, MEDICAID, SELFPAY | PROVIDERS: PCP Family Medicine; Visit Provider Nurse Practitioner Psychiatric/Mental Health | DX: F33.2 Major depressive disorder, recurrent severe without psychotic features (principal); F41.1 Generalized anxiety disorder; F17.210 Nicotine dependence, cigarettes, uncomplicated | CPT/HCPCS: 99214 ==

== ENCOUNTER → 2021-12-23 08:55 | Outpatient (BNVA) | payer MEDICARE, MEDICAID, SELFPAY | PROVIDERS: PCP Family Medicine; Visit Provider Nurse Practitioner Family | DX: T81.89XA Other complications of procedures, not elsewhere classified, initial encounter (principal); Y83.8 Other surgical procedures as the cause of abnormal reaction of the patient, or of later complication, without mention of misadventure at the time of the procedure; F17.210 Nicotine dependence, cigarettes, uncomplicated; I96 Gangrene, not elsewhere classified | CPT/HCPCS: 15271; A6207; A6250; Q4187 ==

== ENCOUNTER → 2021-12-30 08:43 | Outpatient (BNVA) | payer MEDICARE, MEDICAID, SELFPAY | PROVIDERS: PCP Family Medicine; Visit Provider Surgery | DX: T81.89XA Other complications of procedures, not elsewhere classified, initial encounter (principal); Y83.8 Other surgical procedures as the cause of abnormal reaction of the patient, or of later complication, without mention of misadventure at the time of the procedure; I96 Gangrene, not elsewhere classified; F17.210 Nicotine dependence, cigarettes, uncomplicated | CPT/HCPCS: 11043 ==

== ENCOUNTER → 2022-01-06 13:55 | Outpatient (BNVA) | payer MEDICARE, MEDICAID, SELFPAY | PROVIDERS: PCP Family Medicine; Visit Provider Surgery | DX: I96 Gangrene, not elsewhere classified (principal); L98.492 Non-pressure chronic ulcer of skin of other sites with fat layer exposed; F17.200 Nicotine dependence, unspecified, uncomplicated | CPT/HCPCS: 11043 ==

== ENCOUNTER → 2022-01-13 08:17 | Outpatient (BNVA) | payer MEDICARE, MEDICAID, SELFPAY | PROVIDERS: PCP Family Medicine; Visit Provider Surgery | DX: I96 Gangrene, not elsewhere classified (principal); L98.492 Non-pressure chronic ulcer of skin of other sites with fat layer exposed | CPT/HCPCS: 11042 ==

== ENCOUNTER → 2022-01-20 08:12 | Outpatient (BNVA) | payer MEDICARE, MEDICAID, SELFPAY | PROVIDERS: PCP Family Medicine; Visit Provider Surgery | DX: I96 Gangrene, not elsewhere classified (principal); T81.89XA Other complications of procedures, not elsewhere classified, initial encounter; Y83.8 Other surgical procedures as the cause of abnormal reaction of the patient, or of later complication, without mention of misadventure at the time of the procedure | CPT/HCPCS: 11042 ==

== ENCOUNTER → 2022-01-27 08:13 | Outpatient (BNVA) | payer MEDICARE, MEDICAID, SELFPAY | PROVIDERS: PCP Family Medicine; Visit Provider Surgery | DX: T81.89XA Other complications of procedures, not elsewhere classified, initial encounter (principal); Y83.8 Other surgical procedures as the cause of abnormal reaction of the patient, or of later complication, without mention of misadventure at the time of the procedure | CPT/HCPCS: 11043 ==

== ENCOUNTER → 2022-02-02 07:24 | Outpatient (BNVA) | payer MEDICARE, MEDICAID, SELFPAY | PROVIDERS: PCP Family Medicine; Visit Provider Nurse Practitioner Psychiatric/Mental Health | DX: F33.2 Major depressive disorder, recurrent severe without psychotic features (principal); F41.1 Generalized anxiety disorder; F17.210 Nicotine dependence, cigarettes, uncomplicated | CPT/HCPCS: 99214 ==

== ENCOUNTER → 2022-02-08 13:26 | Outpatient (BNVA) | payer MEDICARE, MEDICAID, SELFPAY | PROVIDERS: PCP Family Medicine; Visit Provider Surgery | DX: S31.109A Unspecified open wound of abdominal wall, unspecified quadrant without penetration into peritoneal cavity, initial encounter (principal); X58.XXXA Exposure to other specified factors, initial encounter | CPT/HCPCS: 99213 ==

== ENCOUNTER → 2022-02-10 09:24 | Outpatient (BNVA) | payer MEDICARE, MEDICAID, SELFPAY | PROVIDERS: PCP Family Medicine; Visit Provider Nurse Practitioner Family | DX: I96 Gangrene, not elsewhere classified (principal); L98.492 Non-pressure chronic ulcer of skin of other sites with fat layer exposed | CPT/HCPCS: 11042 ==

== ENCOUNTER 2022-02-14 14:31 | Outpatient (CLI) | payer MEDICARE, MEDICAID, SELFPAY ==
--- NOTE | 2022-02-14 14:45 | XR_ITS ---
WS: [email or web address] Exam: XR finger RT min 2V [id number] Date/Time of Exam: 02/14/2022 2:48 PM Reason For Exam: R THUMB TRIGGER FINGER/R THUMB PAIN No fracture or dislocation. The joint structures are relatively well maintained. Small calcification seen along the volar margin of the DIP joint. XR/XR finger RT min 2V [id number] IMPRESSION: 1. No fracture or dislocation. 2. Small periarticular calcification along the IP joint of the thumb.
== END 2022-02-14 14:32 | disposition home or self-care (01) ==
LOC: RAD 14:39
PROVIDERS: PCP Family Medicine; Visit Provider Family Medicine
DX: M65.311 Trigger thumb, right thumb (principal)
CPT/HCPCS: 73140

== ENCOUNTER → 2022-02-17 10:00 | Outpatient (BNVA) | payer MEDICARE, MEDICAID, SELFPAY | PROVIDERS: PCP Family Medicine; Visit Provider Nurse Practitioner Family | DX: T81.89XA Other complications of procedures, not elsewhere classified, initial encounter (principal); Y83.8 Other surgical procedures as the cause of abnormal reaction of the patient, or of later complication, without mention of misadventure at the time of the procedure; I96 Gangrene, not elsewhere classified | CPT/HCPCS: 11042 ==

== ENCOUNTER → 2022-02-24 10:43 | Outpatient (BNVA) | payer MEDICARE, MEDICAID, SELFPAY | PROVIDERS: PCP Family Medicine; Visit Provider Surgery | DX: L98.492 Non-pressure chronic ulcer of skin of other sites with fat layer exposed (principal); I96 Gangrene, not elsewhere classified; Z09 Encounter for follow-up examination after completed treatment for conditions other than malignant neoplasm | CPT/HCPCS: 11042 ==

== ENCOUNTER → 2022-03-03 10:44 | Outpatient (BNVA) | payer MEDICARE, MEDICAID, SELFPAY | PROVIDERS: PCP Family Medicine; Visit Provider Surgery | DX: I96 Gangrene, not elsewhere classified (principal); L98.492 Non-pressure chronic ulcer of skin of other sites with fat layer exposed | CPT/HCPCS: 11042 ==

== ENCOUNTER → 2022-03-10 10:55 | Outpatient (BNVA) | payer MEDICARE, MEDICAID, SELFPAY | PROVIDERS: PCP Family Medicine; Visit Provider Surgery | DX: Z09 Encounter for follow-up examination after completed treatment for conditions other than malignant neoplasm (principal) | CPT/HCPCS: 99212 ==

== ENCOUNTER 2022-07-19 11:28 | Outpatient (CLI) | payer MEDICARE, MEDICAID, SELFPAY ==
--- NOTE | 2022-07-19 11:41 | XRR_ITS ---
PROCEDURE INFORMATION: Exam: XR Lumbosacral Spine Exam date and time: 07/19/2022 11:42 AM Age: 56 years old Clinical indication: Low back pain; Additional info: Vertebrogenic low back pain TECHNIQUE: Imaging protocol: Radiologic exam of the lumbosacral spine. Views: 2 or 3 views. COMPARISON: CR XR lumbar spine f/e only [id number] 11/04/2019 8:39 AM FINDINGS: Bones/joints: The vertebral body stature is maintained. Mild disc space narrowing at L4-L5. No fracture or subluxation. The facets are intact. Degenerative endplate changes in the lower thoracic spine. Soft tissues: Unremarkable. Vasculature: Dense arterial calcifications. XR/XR lumbar spine f/e only [id number] IMPRESSION: No acute findings.
== END 2022-07-19 11:29 | disposition home or self-care (01) ==
PROVIDERS: PCP Family Medicine; Visit Provider Nurse Practitioner
DX: M54.51 Vertebrogenic low back pain (principal)
CPT/HCPCS: 72120

== ENCOUNTER 2022-08-10 08:55 | Outpatient (CLI) | payer MEDICARE, MEDICAID, SELFPAY ==
--- NOTE | 2022-08-10 09:03 | CT_ITS ---
WS: [id number] CT LUMBAR SPINE TECHNIQUE: Noncontrast CT of the lumbar spine with coronal and sagittal reformatted images. CLINICAL INFORMATION: VERTEBROGENIC LOW BACK PAIN COMPARISON: MRI November 03, 2019 DLP: 1366.[address] scans at [facility] use at least one of these dose optimization techniques: automated e xposure control; mA and/or kV adjustment per patient size (includes targeted exams where dose is matc hed to clinical indication); or iterative reconstruction. FINDINGS: Mild lumbar curve. No acute compression. Mild disc bulging L4-L5 and L5-S1. Slight anterolisthesis L4 on L5. No high-grade central canal stenosis. Adrenal glands are normal. Small infrarenal abdominal aortic aneurysm measuring 2.1 x 2.1 cm. L1-L2: Normal. L2-L3: No significant disc bulging. Mild facet arthropathy. Spinal canal and foramen are patent. L3-L4: Mild annular bulging with slight effacement of the ventral thecal sac. Spinal canal and forame n are patent. L4-L5: Mild annular bulging with slight effacement of ventral thecal sac. Slight narrowing of the sub articular recess bilaterally. Moderate to advanced facet arthropathy. Mild LEFT foraminal narrowing. L5-S1: Shallow central disc bulging. Slight effacement of the ventral thecal sac. Mild RIGHT and no s ignificant LEFT foraminal narrowing. Moderate facet arthropathy. Visualized pelvic bony structures: Normal. Paravertebral soft tissues: Normal. CT/CT lumbar spine wo con* [id number] IMPRESSION: 1. Mild lumbar curve. No acute compression. No high-grade central canal stenos is. 2. Slight anterolisthesis L4 on L5 with mild annular bulging and slight narrow ing of the subarticular recess bilaterally. 3. Mild LEFT L4-L5 and RIGHT L5-S1 foraminal narrowing. 4. Moderate to advanced facet arthropathy L4-L5 and moderate facet arthropathy L5-S1.
== END 2022-08-10 08:56 | disposition home or self-care (01) ==
LOC: RAD 08:56
PROVIDERS: PCP Family Medicine; Visit Provider Nurse Practitioner
DX: M54.51 Vertebrogenic low back pain (principal); M47.816 Spondylosis without myelopathy or radiculopathy, lumbar region; M47.817 Spondylosis without myelopathy or radiculopathy, lumbosacral region
CPT/HCPCS: 72131

== ENCOUNTER 2022-09-13 08:57 | Outpatient (CLI) | payer MEDICARE, MEDICAID, SELFPAY ==
--- NOTE | 2022-09-13 09:08 | MM_ITS ---
WS: [email or web address] BILATERAL SCREENING DIGITAL TOMOSYNTHESIS MAMMOGRAM WITH CAD HISTORY: SCREEN COMPARISON: 11/23/2020 Bilateral CC and MLO views with tomosynthesis and synthetic mammography submitted. Computer aided det ection analyzed. Breast composition: There are scattered areas of fibroglandular density. No suspicious masses, microc alcifications or architectural distortion. Bilateral benign calcifications in each breast. MM/[place] [id number] IMPRESSION: BI-RADS: 2-Benign FOLLOW UP: 1 Year Follow-up
== END 2022-09-13 08:58 | disposition home or self-care (01) ==
LOC: RAD 09:01
PROVIDERS: PCP Family Medicine; Visit Provider Family Medicine
DX: Z12.31 Encounter for screening mammogram for malignant neoplasm of breast (principal)
CPT/HCPCS: 77063; 77067; 99213

== ENCOUNTER 2022-09-21 11:26 | Outpatient (CLI) | payer MEDICARE, MEDICAID, SELFPAY ==
--- NOTE | 2022-09-21 12:30 | CT_ITS ---
WS: [id number] CT ABDOMEN AND PELVIS NONCONTRAST HISTORY: recurrent abdominal wound; r/o enteric cutaneous fistula TECHNIQUE: Imaging performed through the abdomen and pelvis. Coronal and sagittal reformats are submi tted. All CT scans at [facility] use at least one of these dose optimization techniques: auto mated exposure control; mA and/or kV adjustment per patient size (includes targeted exams where dose is matched to clinical indication); or iterative reconstruction. DLP: 894.30 mGy.cm COMPARISON: 11/21/2021, 04/29/2021 Lower thorax: Lung bases are clear. Visualized heart is normal. No hiatal hernia. Liver: Liver is enlarged and heterogeneous and lobulated. No bile duct dilatation. Gallbladder: Prior cholecystectomy. Pancreas: Normal size and attenuation. Normal pancreatic duct. No pancreatitis or mass. Spleen: Normal. Adrenal glands: Mild bilateral adrenal hyperplasia. Right kidney: Normal size kidney with no mass or hydronephrosis. Left kidney: Normal size kidney with no mass or hydronephrosis. Aorta: Moderate to severe atherosclerosis abdominal aorta. No aneurysm. Atherosclerosis continues int o the common iliac arteries. No free fluid, intraperitoneal air or significant lymphadenopathy. GI tract: Open abdominal wound along the lower abdomen. The previously described complex fluid extend ing along the is improving. There is an associated small bowel loop in the small collection of air at the base of the tract. This air may very well be within the small bowel. The loop of small bowel is closely associated with the open wound. A patent tract is not evident but there is significant soft t issue thickening along the inferior ventral wound. Abdominal wall: See above Pelvis: Well-distended urinary bladder. No free fluid or adenopathy. Osseous structures: Unremarkable. CT/CT abdomen pelvis wo con [id number] IMPRESSION: 1. Midline lower ventral abdominal wall wound is open. The previously describe d abscess at the base of the wound is improving. There is a small foci of air r emaining but this is probably associated with the small bowel loop and not infe ction. Overall improvement. There is a small bowel loop very closely associated with open wound. 2. Enlarged liver. 3. Prior cholecystectomy.
[2022-09-21] MEDS: iohexol 350 mg/mL 500 mL Btl (per mL) PO (13:05)
== END 2022-09-21 11:27 | disposition home or self-care (01) ==
PROVIDERS: PCP Family Medicine; Visit Provider Thoracic Surgery (Cardiothoracic Vascular Surgery)
DX: S31.109A Unspecified open wound of abdominal wall, unspecified quadrant without penetration into peritoneal cavity, initial encounter (principal); R16.0 Hepatomegaly, not elsewhere classified; Z90.49 Acquired absence of other specified parts of digestive tract; X58.XXXA Exposure to other specified factors, initial encounter
CPT/HCPCS: 74176; Q9967

== ENCOUNTER → 2022-09-27 11:18 | Outpatient (BNVA) | payer MEDICARE, MEDICAID, SELFPAY | PROVIDERS: PCP Family Medicine; Visit Provider Thoracic Surgery (Cardiothoracic Vascular Surgery) | DX: L02.211 Cutaneous abscess of abdominal wall (principal) | CPT/HCPCS: 99212 ==

== ENCOUNTER → 2022-10-11 09:28 | Outpatient (BNVA) | payer MEDICARE, MEDICAID, SELFPAY | PROVIDERS: PCP Family Medicine; Visit Provider Thoracic Surgery (Cardiothoracic Vascular Surgery) | DX: I96 Gangrene, not elsewhere classified (principal); L98.492 Non-pressure chronic ulcer of skin of other sites with fat layer exposed | CPT/HCPCS: 99212; A6021 ==

== ENCOUNTER → 2022-10-24 10:42 | Outpatient (BNVA) | payer MEDICARE, MEDICAID, SELFPAY | PROVIDERS: PCP Family Medicine; Visit Provider Surgery | DX: K57.32 Diverticulitis of large intestine without perforation or abscess without bleeding (principal); L08.9 Local infection of the skin and subcutaneous tissue, unspecified | CPT/HCPCS: 99213 ==

== ENCOUNTER → 2022-11-01 09:21 | Outpatient (BNVA) | payer MEDICARE, MEDICAID, SELFPAY | PROVIDERS: PCP Family Medicine; Visit Provider Thoracic Surgery (Cardiothoracic Vascular Surgery) | DX: L02.211 Cutaneous abscess of abdominal wall (principal); L98.492 Non-pressure chronic ulcer of skin of other sites with fat layer exposed | CPT/HCPCS: 99212; A6210; A6219 ==

== ENCOUNTER → 2022-11-29 08:52 | Outpatient (BNVA) | payer MEDICARE, MEDICAID, SELFPAY | PROVIDERS: PCP Family Medicine; Visit Provider Thoracic Surgery (Cardiothoracic Vascular Surgery) | DX: L98.492 Non-pressure chronic ulcer of skin of other sites with fat layer exposed (principal) | CPT/HCPCS: 99212 ==

== ENCOUNTER → 2022-12-13 08:55 | Outpatient (BNVA) | payer MEDICARE, MEDICAID, OTHER, SELFPAY | PROVIDERS: PCP Family Medicine; Visit Provider Thoracic Surgery (Cardiothoracic Vascular Surgery) | DX: I96 Gangrene, not elsewhere classified (principal); L98.492 Non-pressure chronic ulcer of skin of other sites with fat layer exposed | CPT/HCPCS: 99212 ==

== ENCOUNTER → 2022-12-21 15:21 | Outpatient (BNVA) | payer MEDICARE, MEDICAID, SELFPAY | PROVIDERS: PCP Family Medicine; Visit Provider Family Medicine | DX: E87.6 Hypokalemia (principal); I10 Essential (primary) hypertension; R73.09 Other abnormal glucose | CPT/HCPCS: 80053; 80061; 83036; 83721; 84439; 84443; 85025 ==

== ENCOUNTER → 2023-06-21 09:29 | Outpatient (BNVA) | payer MEDICARE, OTHER, SELFPAY | PROVIDERS: PCP Family Medicine; Referring Provider Family Medicine; Visit Provider Physician Assistant | DX: M51.36 Other intervertebral disc degeneration, lumbar region; M47.816 Spondylosis without myelopathy or radiculopathy, lumbar region | CPT/HCPCS: 72110; 99203 ==

== ENCOUNTER 2023-08-24 09:55 | Outpatient (CLI) | payer MEDICARE, OTHER, SELFPAY ==
--- NOTE | 2023-08-24 10:05 | CT_ITS ---
WS: [email or web address] LDCT LUNG CANCER SCREENING TECHNIQUE: Noncontrast CT of the chest with coronal and sagittal reformatted images. CLINICAL INFORMATION: pulmonary nodule COMPARISON: CT 11/28/2021 DLP: 138.89 mGy.cm DIvol: Mean CTDIvol: 3.00 (mGy) All CT scans at [facility] use at least one of these dose optimization techniques: automat ed exposure control; mA and/or kV adjustment per patient size (includes targeted exams where dose is matched to clinical indication); or iterative reconstruction. FINDINGS: Moderate chronic emphysematous changes. A few tiny noncalcified subcentimeter nodules RIGHT upper l obe largest measuring 3 to 4 mm unchanged. 5 mm nodule superior segment RIGHT lower lobe. 5 mm nodule LEFT upper lobe. A few new small hazy scattered opacities in the upper lobes and both lower lobes. These may be infla mmatory. Recommend 6-month follow-up. A few prominent peribronchial lymph nodes similar to 2020 unchanged and likely reactive. Aortic calci fication. Mild coronary calcification. No axillary lymphadenopathy. Small esophageal hiatal hernia. H epatomegaly with cirrhotic liver. Recommend correlation with liver function tests. Adrenal glands are normal. Cholecystectomy. IMPRESSION: CT/CT lung screening [id number] LUNG-RADS: 3-Probably Benign FOLLOW UP: 6 Month LDCT
== END 2023-08-24 09:56 | disposition home or self-care (01) ==
LOC: RAD 09:56
PROVIDERS: Visit Provider Family Medicine
DX: Z12.2 Encounter for screening for malignant neoplasm of respiratory organs (principal); R91.1 Solitary pulmonary nodule; F17.219 Nicotine dependence, cigarettes, with unspecified nicotine-induced disorders
CPT/HCPCS: 71271

== ENCOUNTER → 2023-09-24 16:26 | Outpatient (BNVA) | payer MEDICARE, OTHER, SELFPAY | PROVIDERS: Visit Provider Family Medicine | DX: S31.109A Unspecified open wound of abdominal wall, unspecified quadrant without penetration into peritoneal cavity, initial encounter (principal); X58.XXXA Exposure to other specified factors, initial encounter; L08.9 Local infection of the skin and subcutaneous tissue, unspecified | CPT/HCPCS: 87070; 87077; 87184 ==

== ENCOUNTER → 2023-11-26 08:24 | Outpatient (BNVA) | payer MEDICARE, MEDICAID, SELFPAY | PROVIDERS: PCP Family Medicine; Visit Provider Nurse Practitioner Family | DX: L98.492 Non-pressure chronic ulcer of skin of other sites with fat layer exposed (principal) | CPT/HCPCS: 11042; 99213; A6446 ==

== ENCOUNTER → 2023-12-03 07:55 | Outpatient (BNVA) | payer MEDICARE, MEDICAID, OTHER, SELFPAY | PROVIDERS: PCP Family Medicine; Visit Provider Nurse Practitioner Family | DX: S30.821D Blister (nonthermal) of abdominal wall, subsequent encounter (principal); X58.XXXD Exposure to other specified factors, subsequent encounter; I96 Gangrene, not elsewhere classified | CPT/HCPCS: 11042; 97605; 99212; A6237; A6250 ==

== ENCOUNTER → 2023-12-10 08:00 | Outpatient (BNVA) | payer MEDICARE, MEDICAID, SELFPAY | PROVIDERS: PCP Family Medicine; Visit Provider Nurse Practitioner Family | DX: T81.31XD Disruption of external operation (surgical) wound, not elsewhere classified, subsequent encounter (principal); Y83.8 Other surgical procedures as the cause of abnormal reaction of the patient, or of later complication, without mention of misadventure at the time of the procedure | CPT/HCPCS: 11042; A6446 ==

== ENCOUNTER 2023-12-17 10:04 | Outpatient (CLI) | payer MEDICARE, MEDICAID, SELFPAY ==
[2023-12-17 10:33] LABS: Basophils # 0.1 10^3/uL (0.0-0.1); Basophils % 0.8 %; Eosinophils # 0.2 10^3/uL (0.0-0.8); Eosinophils % 1.8 %; Hematocrit 52.7 % (36-47); Lymphocytes # 3.7 10^3/uL (0.8-4.8); Lymphocytes % 27.7 %; Mean Corpuscular HGB Conc 32.6 g/dL (30-55); Mean Corpuscular Hemoglobin 28.9 pg (27-33); Mean Corpuscular Volume 88.6 fl (85-98); Mean Platelet Volume 9.5 fL (7.4-10.4); Monocytes # 1.2 10^3/uL (0.2-0.9); Monocytes % 8.9 %; Neutrophils # 7.99 10^3/uL (1.8-7.7); Neutrophils % 60.2 %; Nucleated Red Blood Cells % 0 %; Platelet Count 213 10^3/cmm (157-399); Red Blood Count 5.95 10^6/uL (3.85-5.65); Red Cell Distribution Width 15.5 % (12.1-15.1); White Blood Count 13.27 10^3/uL (3.29-11.43)
[2023-12-17 10:48] LABS: Alanine Aminotransferase 12 U/L (0-33); Albumin Level 3.4 g/dL (3.5-5.2); Alkaline Phosphatase 128 U/L (35-105); Anion Gap 11.8 (5-19); Aspartate Amino Transferase 17 U/L (0-32); Blood Urea Nitrogen 11 mg/dL (6-20); Calcium 9.2 mg/dL (8.5-10.5); Carbon Dioxide 29 mmol/L (22-29); Chloride 99 mmol/L (98-107); Globulin 3.6 g/dL (1.3-4.6); Glomerular Filtration Rate 57.1 mL/min (90-130); Glucose 107 mg/dL (65-115); Osmolality Calculated 284 mOsm/kg (285-295); Sodium 137 mmol/L (136-145); Total Bilirubin 0.6 mg/dL (0.15-1.2)
[2023-12-17 11:10] LABS: Potassium 2.8 mmol/L (3.5-5.1)
== END 2023-12-17 10:05 | disposition home or self-care (01) ==
LOC: LAB 10:06
PROVIDERS: Nurse Practitioner Family; PCP Family Medicine; Visit Provider Thoracic Surgery (Cardiothoracic Vascular Surgery)
DX: S31.109A Unspecified open wound of abdominal wall, unspecified quadrant without penetration into peritoneal cavity, initial encounter (principal); X58.XXXA Exposure to other specified factors, initial encounter
CPT/HCPCS: 11042; 36415; 80053; 85025; 87070; 87075; 87077; 87186; 87205; 99212; A6212

== ENCOUNTER → 2023-12-19 14:30 | Outpatient (BNVA) | payer MEDICARE, MEDICAID, SELFPAY | PROVIDERS: PCP Family Medicine; Visit Provider Family Medicine | DX: E87.6 Hypokalemia (principal) | CPT/HCPCS: 80053 ==

== ENCOUNTER 2023-12-21 08:03 | Outpatient (CLI) | payer MEDICARE, MEDICAID, SELFPAY ==
[2023-12-21] MEDS: iohexol 350 mg/mL 500 mL Btl (per mL) IV (08:55)
[2023-12-21] MEDS: iohexol 350 mg/mL 500 mL Btl (per mL) PO (08:56)
--- NOTE | 2023-12-21 09:00 | CT_ITS ---
WS: [email or web address] CT ABDOMEN AND PELVIS WITH CONTRAST HISTORY: recurring midline abdominal wound TECHNIQUE: Imaging performed of the abdomen and pelvis with IV contrast. Single phase imaging of the abdomen. Coronal and sagittal reformats are submitted. All CT scans at [facility] use at [address] one of these dose optimization techniques: automated exposure control; mA and/or kV adjustment per patient size (includes targeted exams where dose is matched to clinical indication); or iterative re construction. IV CONTRAST: Omnipaque 350; 100 mL IV. Oral contrast: Yes. DLP: 830.03 mGy.cm COMPARISON: 09/11/2022 Lower thorax: Mild hazy attenuation at the lung bases. There are a few very small peripheral airways nodules posteriorly. These were not definitely seen on the prior exam. Heart is normal size. No hiata l hernia. Liver/biliary system: Moderately enlarged liver. No mass and no bile duct dilatation. Gallbladder: Prior cholecystectomy. Pancreas: Normal size pancreas and pancreatic duct. No adjacent inflammation. Spleen: Normal size spleen. No mass or infarct. Adrenal glands: Normal. Right kidney: 2 mm nonobstructing calcification. This may be an arterial calcification in the renal p myla. Left kidney: Normal. Aorta: Moderate atherosclerosis with no aneurysm. Dense heavy calcification throughout the abdominal aorta. Moderate stenosis of the infrarenal aorta. Increasing plaque at the bifurcation. Lymphadenopathy: None. Free fluid: None. GI tract: Normally distended stomach. No small bowel obstruction. Infraumbilical dehiscence of the ab dominal wall with increased soft tissue. There is small bowel extending into the dehiscence. There is increased soft tissue along the area of dehiscence extending over a length of 8.9 cm. The soft tissu e extends from the ventral abdominal wall to encase small bowel and extends into the omentum. Patient is at risk for obstruction. There is a single focus of air with a small amount of adjacent fluid bes t seen on image 168 of series 3 which could potentially represent an abscess. There is also adjacent small bowel but there is no oral contrast filling this small collection. Suspicious for small develop ing abscess which was not present on 09/21/2022. No colon obstruction. There is moderate diffuse constipation. Long segment area of circumferential wa ll thickening involving the sigmoid colon may be related to acute and chronic episodes of diverticuli tis. No acute diverticulitis at this time. Abdominal wall: See above GI tract. Pelvis: Prior hysterectomy. No free fluid or adenopathy. Bones: Unremarkable. IMPRESSION: 1. Infraumbilical abdominal wall dehiscence. At the dehiscence is a nondilated small bowel loop. 2. There is increased nonenhancing soft tissue at the site of the dehiscence partially encasing the adjacent small bowel. No obstruction at this time but patient is at elevated risk for obstruction due to the encasing soft tissue. Patient may be at risk for fistula. 3. There is a very small collection containing single focus of air deep to the dehiscence and a loop of small bowel. This could be a very small developing abscess. New since 09/21/2022. 4. Long segment sigmoid mucosal thickening with adjacent diverticula. Probably due to episodes of ac merritt and chronic diverticulitis. This area can be further evaluated by colonoscopy to exclude an under lying neoplasm. 5. Prior appendectomy, cholecystectomy and hysterectomy. 6. Dense atherosclerotic plaque in the infrarenal abdominal aorta and at the bifurcation. Component of aortic stenosis at the bifurcation into the iliac arteries is likely. 7. Diffuse constipation.
== END 2023-12-21 08:04 | disposition home or self-care (01) ==
LOC: RAD 08:06
PROVIDERS: PCP Family Medicine; Visit Provider Nurse Practitioner Family
DX: S31.109A Unspecified open wound of abdominal wall, unspecified quadrant without penetration into peritoneal cavity, initial encounter (principal); L08.9 Local infection of the skin and subcutaneous tissue, unspecified; I70.0 Atherosclerosis of aorta; K59.00 Constipation, unspecified
CPT/HCPCS: 74177; Q9967

== ENCOUNTER → 2023-12-24 07:53 | Outpatient (BNVA) | payer MEDICARE, MEDICAID, SELFPAY | PROVIDERS: PCP Family Medicine; Visit Provider Nurse Practitioner Family | DX: T81.31XD Disruption of external operation (surgical) wound, not elsewhere classified, subsequent encounter (principal); Y83.8 Other surgical procedures as the cause of abnormal reaction of the patient, or of later complication, without mention of misadventure at the time of the procedure | CPT/HCPCS: 11042 ==

== ENCOUNTER → 2023-12-31 07:59 | Outpatient (BNVA) | payer MEDICARE, MEDICAID, SELFPAY | PROVIDERS: PCP Family Medicine; Visit Provider Nurse Practitioner Family | DX: T81.31XD Disruption of external operation (surgical) wound, not elsewhere classified, subsequent encounter (principal); Y83.8 Other surgical procedures as the cause of abnormal reaction of the patient, or of later complication, without mention of misadventure at the time of the procedure | CPT/HCPCS: 11042; A6248 ==

== ENCOUNTER → 2024-01-14 07:57 | Outpatient (BNVA) | payer MEDICARE, MEDICAID, SELFPAY | PROVIDERS: PCP Family Medicine; Visit Provider Nurse Practitioner Family | DX: I96 Gangrene, not elsewhere classified (principal); L98.491 Non-pressure chronic ulcer of skin of other sites limited to breakdown of skin | CPT/HCPCS: 97597; 99212 ==

== ENCOUNTER → 2024-01-28 07:57 | Outpatient (BNVA) | payer MEDICARE, MEDICAID, SELFPAY | PROVIDERS: PCP Family Medicine; Visit Provider Nurse Practitioner Family | DX: Z09 Encounter for follow-up examination after completed treatment for conditions other than malignant neoplasm (principal); L98.492 Non-pressure chronic ulcer of skin of other sites with fat layer exposed | CPT/HCPCS: 11042; 87070; 87075; 87205 ==

== ENCOUNTER → 2024-02-04 07:58 | Outpatient (BNVA) | payer MEDICARE, MEDICAID, SELFPAY | PROVIDERS: PCP Family Medicine; Visit Provider Nurse Practitioner Family | DX: L98.492 Non-pressure chronic ulcer of skin of other sites with fat layer exposed (principal) | CPT/HCPCS: 11042; 99212 ==

== ENCOUNTER → 2024-02-11 07:52 | Outpatient (BNVA) | payer MEDICARE, MEDICAID, SELFPAY | PROVIDERS: PCP Family Medicine; Visit Provider Nurse Practitioner Family | DX: L98.492 Non-pressure chronic ulcer of skin of other sites with fat layer exposed (principal) | CPT/HCPCS: 11042 ==

== ENCOUNTER → 2024-02-18 07:57 | Outpatient (BNVA) | payer MEDICARE, MEDICAID, SELFPAY | PROVIDERS: PCP Family Medicine; Visit Provider Nurse Practitioner Family | DX: L98.492 Non-pressure chronic ulcer of skin of other sites with fat layer exposed (principal) | CPT/HCPCS: 11042 ==

== ENCOUNTER 2024-02-26 11:00 | Outpatient (CLI) | payer MEDICARE, MEDICAID, SELFPAY ==
--- NOTE | 2024-02-26 11:00 | CTR_ITS ---
PROCEDURE INFORMATION: Exam: CT Chest Without Contrast; Diagnostic Exam date and time: 02/26/2024 11:08 AM Age: 58 years old Clinical indication: Abnormal findings; Abnormal radiologic exam of lung or chest; Additional info: Abnormal ldct scan, lung-rads 3 TECHNIQUE: Imaging protocol: Diagnostic computed tomography of the chest without contrast. Radiation optimization: All CT scans at this facility use at least one of these dose optimization techniques: automated exposure control; mA and/or kV adjustment per patient size (includes targeted exams where dose is matched to clinical indication); or iterative reconstruction. COMPARISON: CT lung screening [id number] 08/24/2023 10:13 AM RADIATION DOSE METRICS: Total DLP (mGy-cm): 615.25 FINDINGS: Thyroid: Grossly unremarkable. Lungs: No new, enlarging or suspicious pulmonary nodules. There is a 9 mm ground-glass opacity in the superior segment right lower lobe (image 27 of series 3). No focal consolidation. No pneumothorax. Pleural spaces: No pleural effusion. Heart: No cardiomegaly. No pericardial effusion. Coronary arteries: There are incidental coronary artery calcifications. Mediastinal space: Trachea and airway are grossly patent. No evidence of mediastinal hemorrhage or hematoma. Lymph nodes: No evidence of mediastinal adenopathy. Evaluation for hilar adenopathy is limited by lack of IV contrast. Vasculature: Atherosclerosis without aneurysmal dilatation of the thoracic aorta. Evaluation for acute vascular injury or thrombosis is limited by lack of IV contrast. Bones/joints: No evidence of acute fracture or aggressive osseous lesion. Soft tissues: No evidence of fluid collection or hematoma in the superficial soft tissues. Other findings: No evidence of acute abnormality in the upper abdomen. Lobulated hepatic morphology with nodularity compatible with hepatic cirrhosis. CT/CT chest wo con [id number] IMPRESSION: 1. No suspicious pulmonary nodules. 2. Right lower lobe ground-glass opacity measuring 9 mm. Follow-up CT of the chest in 6 months is recommended. References: Juan Galindo et al. Guidelines for Management of Incidental Pulmonary Nodules Detected on CT Images: From the Fleischner Society 2017. Radiology. 2017;284(1):228-243.
== END 2024-02-26 11:03 | disposition home or self-care (01) ==
PROVIDERS: PCP Family Medicine; Visit Provider Family Medicine
DX: R91.1 Solitary pulmonary nodule (principal); R91.8 Other nonspecific abnormal finding of lung field
CPT/HCPCS: 71250

== ENCOUNTER → 2024-02-27 14:12 | Outpatient (BNVA) | payer MEDICARE, MEDICAID, SELFPAY | PROVIDERS: PCP Family Medicine; Visit Provider Family Medicine | DX: E87.6 Hypokalemia (principal) | CPT/HCPCS: 80053 ==

== ENCOUNTER → 2024-03-03 08:11 | Outpatient (BNVA) | payer MEDICARE, MEDICAID, SELFPAY | PROVIDERS: PCP Family Medicine; Visit Provider Thoracic Surgery (Cardiothoracic Vascular Surgery) | DX: T81.31XD Disruption of external operation (surgical) wound, not elsewhere classified, subsequent encounter (principal); Y83.8 Other surgical procedures as the cause of abnormal reaction of the patient, or of later complication, without mention of misadventure at the time of the procedure | CPT/HCPCS: 97597 ==

== ENCOUNTER → 2024-03-17 08:00 | Outpatient (BNVA) | payer MEDICARE, MEDICAID, SELFPAY | PROVIDERS: PCP Family Medicine; Visit Provider Thoracic Surgery (Cardiothoracic Vascular Surgery) | DX: L98.491 Non-pressure chronic ulcer of skin of other sites limited to breakdown of skin (principal) | CPT/HCPCS: 97597 ==

== ENCOUNTER → 2024-03-31 08:02 | Outpatient (BNVA) | payer MEDICARE, MEDICAID, SELFPAY | PROVIDERS: PCP Family Medicine; Visit Provider Thoracic Surgery (Cardiothoracic Vascular Surgery) | DX: L98.491 Non-pressure chronic ulcer of skin of other sites limited to breakdown of skin (principal) | CPT/HCPCS: 97597 ==

== ENCOUNTER → 2024-04-07 07:58 | Outpatient (BNVA) | payer MEDICARE, MEDICAID, SELFPAY | PROVIDERS: PCP Family Medicine; Visit Provider Thoracic Surgery (Cardiothoracic Vascular Surgery) | DX: T81.31XD Disruption of external operation (surgical) wound, not elsewhere classified, subsequent encounter (principal); Y83.8 Other surgical procedures as the cause of abnormal reaction of the patient, or of later complication, without mention of misadventure at the time of the procedure | CPT/HCPCS: 97597 ==

== ENCOUNTER → 2024-04-14 07:58 | Outpatient (BNVA) | payer MEDICARE, MEDICAID, SELFPAY | PROVIDERS: PCP Family Medicine; Visit Provider Thoracic Surgery (Cardiothoracic Vascular Surgery) | DX: I96 Gangrene, not elsewhere classified (principal); T81.31XD Disruption of external operation (surgical) wound, not elsewhere classified, subsequent encounter; Y83.8 Other surgical procedures as the cause of abnormal reaction of the patient, or of later complication, without mention of misadventure at the time of the procedure | CPT/HCPCS: 97597; A6219 ==

== ENCOUNTER → 2024-04-21 07:55 | Outpatient (BNVA) | payer MEDICARE, MEDICAID, SELFPAY | PROVIDERS: PCP Family Medicine; Visit Provider Thoracic Surgery (Cardiothoracic Vascular Surgery) | DX: I96 Gangrene, not elsewhere classified (principal); T81.31XD Disruption of external operation (surgical) wound, not elsewhere classified, subsequent encounter; Y83.8 Other surgical procedures as the cause of abnormal reaction of the patient, or of later complication, without mention of misadventure at the time of the procedure | CPT/HCPCS: 97597 ==

== ENCOUNTER → 2024-05-05 07:55 | Outpatient (BNVA) | payer MEDICARE, MEDICAID, SELFPAY | PROVIDERS: PCP Family Medicine; Visit Provider Thoracic Surgery (Cardiothoracic Vascular Surgery) | DX: T81.31XD Disruption of external operation (surgical) wound, not elsewhere classified, subsequent encounter (principal); Y83.8 Other surgical procedures as the cause of abnormal reaction of the patient, or of later complication, without mention of misadventure at the time of the procedure | CPT/HCPCS: 97597 ==

== ENCOUNTER 2024-05-19 08:41 | Outpatient (CLI) | payer MEDICARE, MEDICAID, SELFPAY | END 2024-05-19 08:42 | disposition home or self-care (01) | LOC: LAB 08:44 | PROVIDERS: PCP Family Medicine; Visit Provider Surgery | DX: T81.31XD Disruption of external operation (surgical) wound, not elsewhere classified, subsequent encounter (principal); Y83.8 Other surgical procedures as the cause of abnormal reaction of the patient, or of later complication, without mention of misadventure at the time of the procedure | CPT/HCPCS: 97597 ==

== ENCOUNTER → 2024-06-02 07:50 | Outpatient (BNVA) | payer MEDICARE, MEDICAID, SELFPAY | PROVIDERS: PCP Family Medicine; Visit Provider Thoracic Surgery (Cardiothoracic Vascular Surgery) | DX: I96 Gangrene, not elsewhere classified (principal); T81.31XD Disruption of external operation (surgical) wound, not elsewhere classified, subsequent encounter; Y83.8 Other surgical procedures as the cause of abnormal reaction of the patient, or of later complication, without mention of misadventure at the time of the procedure | CPT/HCPCS: 97597 ==

== ENCOUNTER → 2024-06-23 07:57 | Outpatient (BNVA) | payer MEDICARE, MEDICAID, SELFPAY | PROVIDERS: PCP Family Medicine; Visit Provider Thoracic Surgery (Cardiothoracic Vascular Surgery) | DX: Z09 Encounter for follow-up examination after completed treatment for conditions other than malignant neoplasm (principal); Z87.2 Personal history of diseases of the skin and subcutaneous tissue ==

== ENCOUNTER → 2024-07-07 08:00 | Outpatient (BNVA) | payer MEDICARE, MEDICAID, SELFPAY | PROVIDERS: PCP Family Medicine; Visit Provider Thoracic Surgery (Cardiothoracic Vascular Surgery) | DX: L98.491 Non-pressure chronic ulcer of skin of other sites limited to breakdown of skin (principal) | CPT/HCPCS: 97597 ==

== ENCOUNTER 2024-08-26 11:24 | Inpatient (IN) | payer MEDICARE, MEDICAID, SELFPAY ==
[2024-08-26] VITALS (15 sets, daily range): BP systolic 99–152; BP diastolic 67–111; PULSE 73–99; RESP 16–18; TEMP 36.5; O2SAT 88–95; BMI 38.2
--- NOTE | 2024-08-26 12:03 | CTR_ITS ---
PROCEDURE INFORMATION: Exam: CT Abdomen And Pelvis With Contrast Exam date and time: 08/26/2024 1:45 PM Age: 58 years old Clinical indication: Abdominal pain; Localized; Lower; Prior surgery; Surgery date: 6+ months; Surgery type: Perf bowel, gb, appy, hysterectomy; Additional info: Vomiting with abdominal pain, HX of bowel resection with adh TECHNIQUE: Imaging protocol: Computed tomography of the abdomen and pelvis with contrast. Radiation optimization: All CT scans at this facility use at least one of these dose optimization techniques: automated exposure control; mA and/or kV adjustment per patient size (includes targeted exams where dose is matched to clinical indication); or iterative reconstruction. Contrast material: OMNI 350; Contrast volume: 100 ml; Contrast route: INTRAVENOUS (IV); COMPARISON: CT abdomen pelvis w con* [id number] 12/21/2023 9:06 AM RADIATION DOSE METRICS: Total DLP (mGy-cm): 919.89 FINDINGS: Liver: Lobulated contour of the liver with hypertrophy of the left hepatic lobe and asymmetric atrophy of the right hepatic lobe. This is consistent with cirrhosis. No liver mass. Gallbladder and biliary ducts: Cholecystectomy. No ductal dilation. Pancreas: Normal. No ductal dilation. Spleen: Normal. No splenomegaly. Adrenal glands: Normal. No mass. Kidneys and ureters: Normal. No hydronephrosis. Stomach and bowel: Diffusely fluid-filled loops of small bowel and colon. The small bowel loops are nondistended. The cecum is distended up to 10 cm. Questionable transition point in the distal descending colon/proximal sigmoid colon. Appendix: No evidence of appendicitis. Intraperitoneal space: Unremarkable. No free air. No significant fluid collection. Vasculature: Unremarkable. No abdominal aortic aneurysm. Lymph nodes: Unremarkable. No enlarged lymph nodes. Urinary bladder: Unremarkable as visualized. Reproductive: Hysterectomy. Bones/joints: No acute fracture. Soft tissues: Fluid collection noted along the anterior abdominal wall near the periumbilical region measuring roughly 6.[address]/CT abdomen pelvis w con* [id number] IMPRESSION: 1. Fluid-filled distension of the majority of the colon as well as diffusely fluid-filled small bowel. There appears to be a transition point at the distal descending colon/proximal sigmoid colon which is under distended through the rectum. An underlying stricture or mass in this region is not excluded. An enteritis is also a consideration. 2. There is a fluid collection along the anterior abdominal wall near the periumbilical region measuring 6.3 x 1.7 cm. This could reflect a seroma or old hematoma from prior incision site. 3. Cirrhotic liver.
--- NOTE | 2024-08-26 12:12 | ED_ITS ---
HPI - Abdominal Pain 2 General: Chief Complaint: Abdominal Pain Stated Complaint: N/V x 6 days Time Seen by Provider: 08/26/24 11:32 History of Present Illness: 58-year-old female presents to the the [facility] chief complaint of nausea and vomiting abdominal pain has been ongoing for approximately 6 days. Patient endorses a prior history of bowel resection due to bowel perforation with adhesions she denies any known history of any previous issues with bowel obstructions patient endorses over the last 6 days she has had volume as nonbloody emesis due to denies any diarrhea or constipation with generalized abdominal discomfort patient denies any recent sick or ill contacts. He she reports concerns of dehydration she denies any other associated symptoms. Associated Symptoms: Reports GI cramping, nausea and vomiting; Denies chills, constipation, diarrhea, fever(s), heartburn and hematemesis Related Data Home Medications Medication Instructions Recorded Confirmed guaifenesin 600 mg tablet, 600 mg PO Q12H PRN Cough 12/21/22 08/26/24 extended release 12 hr (Mucinex) acetaminophen 500 mg tablet 500 mg PO Q6H PRN Pain 08/26/24 08/26/24 hydrochlorothiazide 50 mg tablet 50 mg PO DAILY 08/26/24 08/26/24 Previous Rx's Medication Instructions Recorded atorvastatin 10 mg tablet 10 mg PO DAILY #90 tabs 09/19/23 valsartan 80 mg tablet 80 mg PO DAILY@09 #90 tabs 09/19/23 pantoprazole 40 mg tablet,delayed 40 mg PO BID #90 tabs 04/30/24 release (Protonix) citalopram 40 mg tablet (Celexa) 40 mg PO .morning #90 tabs 05/05/24 gabapentin 300 mg capsule 300 mg PO TID #270 caps 05/05/24 amitriptyline 25 mg tablet 25 mg PO BEDTIME #90 tabs 07/01/24 bupropion HCl 150 mg tablet,12 hr 150 mg PO QAM #30 tabs 07/16/24 sustained-release (Wellbutrin SR) potassium chloride 20 mEq 20 meq PO TID #270 tabs 07/16/24 tablet,extended release(part/cryst) (Klor-Con M) baclofen 10 mg tablet See Rx Instructions .Route 07/21/24 .COMPLEX #90 tabs alprazolam 1 mg tablet 1 mg PO TID PRN anxiety #90 tabs 08/08/24 Allergies Allergy/AdvReac Type Severity Reaction Status Date / Time amoxicillin Allergy Severe ALGY-Rash Verified 05/05/24 12:50 codeine Allergy Unknown rash, Verified 05/05/24 12:50 itching Penicillins Allergy Unknown rash, Verified 05/05/24 12:50 itching Sulfa (Sulfonamide Allergy Unknown rash, Verified 05/05/24 12:50 Antibiotics) itching Iodinated Contrast Media Allergy Unknown Verified 05/05/24 12:50 Review of Systems 2 General: Reports: 10 or more systems reviewed and unremarkable except in HPI and below Const: Denies: fever(s), chills, fatigue or malaise Eyes: Denies: change in vision or blurry vision Card: Denies: chest pain or palpitations Resp: Denies: dyspnea or productive cough GI: Reports: abdominal pain, nausea, vomiting and GI cramping; Denies: hematemesis, heartburn, diarrhea or constipation : Denies: flank pain Musc: Denies: extremity pain or extremity swelling Skin/Breast: Denies: rash or pruritus Neuro: Denies: headache(s) Psych: Denies: anxiety or depression Jf/Lymph: Denies: easy bleeding All/Imm: Denies: urticaria, throat swelling or facial swelling PFSH ED 2 PFSH: Medical History Eczema Abnormal urinalysis Surgical site infection Abdominal infection Open abdominal wall wound Hyperlipidemia HTN (hypertension) PAD (peripheral artery disease) Cirrhosis Psychiatric care Hypokalemia Sepsis Abdominal wall abscess at site of surgical wound Acid reflux Peritonitis (acute) generalized COPD (chronic obstructive pulmonary disease) Pneumonia Shock liver Rhabdomyolysis Septic shock Acute kidney injury Bowel perforation Nicotine dependence, cigarettes, uncomplicated Generalized anxiety disorder Major depressive disorder, recurrent severe 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, degenerative, lumbar spine Intervertebral disc disorder with radiculopathy of lumbosacral region Surgical History Hx of colonoscopy with polypectomy History of esophagogastroduodenoscopy (EGD) H/O drainage of abscess (~12/13/20) Intra-abdominal H/O exploratory laparotomy drainage of intra abdominal abscess Status post exploratory laparotomy H/O of hysterectomy with bilateral oophorectomy Family History Mother Congestive heart failure (CHF) Cancer mother Other Chronic kidney disease (CKD) Hypertension Lung disease Stroke Denies family history of Diabetes Clotting disorder Dementia Hyperlipidemia Psychiatric illness Anesthesia complication Bleeding disorder Social History Smoking and tobacco/nicotine status: former use of tobacco/nicotine Alcohol intake: current Alcohol intake frequency: holidays/special occasions only Substance/Drug Use: current Substance/Drug use frequency: few times a month Lives independently: Yes Household members: family Marital status: Current occupational status: disabled Special samuel needs: No Agree to transfusion: Yes Physical Exam 2 Const: COMMON NORMALS: patient oriented x3 and healthy appearing; apparent distress (Patient has a flat affect patient appears to be in mild distress.) HENMT: COMMON NORMALS: normocephalic and atraumatic HEAD & SCALP: n ormocephalic and atraumatic OTHER: Dry mucous membranes appreciated concerning for dehydration Eye: COMMON NORMALS: Equal, round and reactive pupils present and EOMs intact bilaterally PUPIL: Yes Equal, round and reactive pupils present Neck/C-Spine: COMMON NORMALS: full ROM, supple and no JVD Lymph: LYMPHATIC: no lymphadenopathy noted Chest: COMMONS NORMALS: normal inspection of the chest and normal palpation of entire chest wall Resp: COMMON NORMALS: normal respiratory effort, No retractions and clear to auscultation bilaterally EFFORT & INSPECTION: Yes able to speak in complete sentences and Yes symmetric chest movement AUSCULTATION: clear to auscultation bilaterally Cardio: COMMON NORMALS: no JVD, regular rate and regular rhythm RATE: r egular rate RHYTHM: regular rhythm GI: COMMON NORMALS: Soft to palpation; negative for Normal to inspection, nondistended, normoactive bowel sounds present and negative for non-tender (Moderate diffuse nonspecific tenderness appreciated no guarding or rebound ) INSPECTION: Yes normal to inspection PALPATION: Yes Soft to palpation : COMMON NORMALS: No no CVA tenderness and No normal external appearance BLADDER/KIDNEY EXAM: No no CVA tenderness Back/Pelvis: COMMON NORMALS: negative for no CVA tenderness Extremity: COMMON NORMALS: normal to inspection and full ROM Neuro: COMMON NORMALS: patient oriented x3, CN's II-XII intact bilaterally, moves all extremities and no focal motor deficits Psych: COMMON NORMALS: mental status grossly normal, Normal thought process present, cooperative and normal affect THOUGHT PROCESS: Normal thought process present Skin: COMMON NORMALS: no rashes or lesions noted GENERAL SKIN EXAM: no rashes or lesions noted Course 2 Vital Signs: Vital signs: Vital Signs Temperature 97.7 F 08/26/24 11:26 Pulse Rate 97 08/26/24 15:30 Respiratory Rate 17 08/26/24 14:04 Blood Pressure 103/67 08/26/24 15:30 Pulse Oximetry 92 08/26/24 15:30 Oxygen Delivery Me thod Room Air 08/26/24 15:30 MDM - Abdominal Pain Medical Decision Making Due to patient's symptoms and condition an IV will be established basic lab work and imaging will be obtained we will continue to follow IV fluids provided for hydration due to concern for dehydration Zofran as well as Pepcid will be provided.\ Patient's case was Dr. Discussed with Dr. Mehta on-call for general surgery that recommends admission to general medicine internal medicine with him to consult participate recommending NG tube 150 mL an hour normal saline as well as keep n.p.o. the patient remains stable condition at this time. Lab Data 08/26/24 11:45 08/26/24 11:45 Labs/Radiology: Radiology Impressions Abdomen/Pelvis CT 08/26/24 12:03 IMPRESSION: 1. Fluid-filled distension of the majority of the colon as well as diffusely fluid-filled small bowel. There appears to be a transition point at the distal descending colon/proximal sigmoid colon which is under distended through the rectum. An underlying stricture or mass in this region is not excluded. An enteritis is also a consideration. 2. There is a fluid collection along the anterior abdominal wall near the periumbilical region measuring 6.3 x 1.7 cm. This could reflect a seroma or old hematoma from prior incision site. 3. Cirrhotic liver. Laboratory Results WBC 19.78 10^3/uL (3.29-11.43) H 08/26/24 11:45 RBC 6.74 10^6/uL (3.85-5.65) H 08/26/24 11:45 Hgb 19.50 g/dL (11.27-16.99) H 08/26/24 11:45 Hct 59.9 % (36-47) H 08/26/24 11:45 MCV 88.9 fl (85-98) 08/26/24 11:45 MCH 28.9 pg (27-33) 08/26/24 11:45 MCHC 32.6 g/dL (30-55) 08/26/24 11:45 RDW 14.8 % (12.1-15.1) 08/26/24 11:45 Plt Count 282 10^3/cmm (157-399) 08/26/24 11:45 MPV 9.6 fL (7.4-10.4) 08/26/24 11:45 Neut % (Auto) 84.0 % 08/26/24 11:45 Lymph % (Auto) 8.9 % 08/26/24 11:45 [place] % (Auto) 5.3 % 08/26/24 11:45 Eos % (Auto) 0.3 % 08/26/24 11:45 Baso % (Auto) 0.4 % 08/26/24 11:45 Neut # (Auto) 16.61 10^3/uL (1.8-7.7) H 08/26/24 11:45 Lymph # (Auto) 1.8 10^3/uL (0.8-4.8) 08/26/24 11:45 [place] # (Auto) 1.1 10^3/uL (0.2-0.9) H 08/26/24 11:45 Eos # (Auto) 0.1 10^3/uL (0.0-0.8) 08/26/24 11:45 Baso # (Auto) 0.1 10^3/uL (0.0-0.1) 08/26/24 11:45 Nucleated RBC % (auto) 0 % 08/26/24 11:45 Nucleated RBCs # 0.0 /100WBC 08/26/24 11:45 Sodium 132 mmol/L (136-145) L 08/26/24 11:45 Potassium 3.7 mmol/L (3.5-5.1) 08/26/24 11:45 Chloride 91 mmol/L (98-107) L 08/26/24 11:45 Carbon Dioxide 25 mmol/L (22-29) 08/26/24 11:45 Anion Gap 19.7 (5-19) H 08/26/24 11:45 BUN 17 mg/dL (6-20) 08/26/24 11:45 Creatinine 1.1 mg/dL (0.5-0.9) H 08/26/24 11:45 GFR Calculation 51.2 mL/min (90-130) L 08/26/24 11:45 Glucose 153 mg/dL (65-115) H 08/26/24 11:45 Calculated Osmolality 279 mOsm/kg (285-295) L 08/26/24 11:45 Lactic Acid 2.1 mmol/L (0.5-2.2) 08/26/24 11:45 Lactic Acid (Sepsis) 2.1 mmol/L (0.5-2.2) 08/26/24 14:40 Calcium 9.6 mg/dL (8.5-10.5) 08/26/24 11:45 Total Bilirubin 1.7 mg/dL (0.15-1.2) H 08/26/24 11:45 AST 16 U/L (0-32) 08/26/24 11:45 ALT 8 U/L (0-33) 08/26/24 11:45 Alkaline Phosphatase 153 U/L (35-105) H 08/26/24 11:45 C-Reactive Protein 41.9 mg/L (0.0-4.9) H 08/26/24 11:45 Total Protein 8.5 g/dL (6.6-8.7) 08/26/24 11:45 Albumin 3.9 g/dL (3.5-5.2) 08/26/24 11:45 Globulin 4.6 g/dL (1.3-4.6) 08/26/24 11:45 Lipase 26 U/L (13-60) 08/26/24 11:45 Urine Color Yellow (Yellow) 08/26/24 14:00 Urine Appearance Clear (CLEAR) 08/26/24 14:00 Urine pH 6.5 (5-7) 08/26/24 14:00 Ur Specific [place] 1.016 (1.005-1.030) 08/26/24 14:00 Urine Protein Negative (Negative) 08/26/24 14:00 Urine Glucose (UA) Negative (Normal) 08/26/24 14:00 Urine Ketones Negative (Negative) 08/26/24 14:00 Urine Blood Negative (Negative) 08/26/24 14:00 Urine Nitrate Negative (Negative) 08/26/24 14:00 Urine Bilirubin Negative (Negative) 08/26/24 14:00 Urine Urobilinogen 0.2 mg/dL (Negative) 08/26/24 14:00 Ur Leukocyte Esterase Negative (Negative) 08/26/24 14:00 Urine RBC 0-2 /hpf (0-2) 08/26/24 14:00 Urine WBC 0-5 /hpf (0-5) 08/26/24 14:00 Ur Squamous Epith Cells 0-5 /hpf (0-5) 08/26/24 14:00 Amorphous Sediment Not Reportable 08/26/24 14:00 Urine Bacteria None seen /hpf (NONE) 08/26/24 14:00 Hyaline Casts 3.71 /lpf 08/26/24 14:00 All radiology interpretation(s) finalized by discharge Discharge Plan Discharge Condition: Stable Prescriptions: No Action guaifenesin [Mucinex] 600 mg tablet extended release 12hr 600 mg PO Q12H PRN (Reason: Cough) citalopram [Celexa] 40 mg tablet 40 mg PO .morning Qty: 90 2RF Hold Instructions: Resume on 04/07/21. Rx Instructions: Take one tablet every morning gabapentin 300 mg capsule 300 mg PO TID Qty: 270 2RF Hold Instructions: Resume on 11/24/21. Rx Instructions: Take one capsule three times per day atorvastatin 10 mg tablet 10 mg PO DAILY Qty: 90 1RF valsartan 80 mg tablet 80 mg PO DAILY@09 Qty: 90 1RF Hold Instructions: Resume on 11/29/21. pantoprazole [Protonix] 40 mg tablet,delayed release (DR/EC) 40 mg PO BID Qty: 90 0RF amitriptyline 25 mg tablet 25 mg PO BEDTIME Qty: 90 2RF Rx Instructions: Take one tablet at bedtime bupropion HCl [Wellbutrin SR] 150 mg tablet sustained-release 12 hr 150 mg PO QAM Qty: 30 3RF Rx Instructions: Take one tablet every morning, set a target date within 2 weeks of starting for nicotine cessation. 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
[2024-08-26] MEDS: sodium chloride 0.9% 1,000 ML 999 ML IV ×2 (12:15→13:25)
[2024-08-26] MEDS: ondansetron 2 mg/ML SDV 2 mL 4 MG IVP (12:16)
[2024-08-26 12:17] LABS: Basophils # 0.1 10^3/uL (0.0-0.1); Basophils % 0.4 %; Eosinophils # 0.1 10^3/uL (0.0-0.8); Eosinophils % 0.3 %; Hematocrit 59.9 % (36-47); Lymphocytes # 1.8 10^3/uL (0.8-4.8); Lymphocytes % 8.9 %; Mean Corpuscular HGB Conc 32.6 g/dL (30-55); Mean Corpuscular Hemoglobin 28.9 pg (27-33); Mean Corpuscular Volume 88.9 fl (85-98); Mean Platelet Volume 9.6 fL (7.4-10.4); Monocytes # 1.1 10^3/uL (0.2-0.9); Monocytes % 5.3 %; Neutrophils # 16.61 10^3/uL (1.8-7.7); Nucleated Red Blood Cells % 0 %; Platelet Count 282 10^3/cmm (157-399); Red Blood Count 6.74 10^6/uL (3.85-5.65); Red Cell Distribution Width 14.8 % (12.1-15.1); White Blood Count 19.78 10^3/uL (3.29-11.43)
[2024-08-26] MEDS: famotidine 20 mg/2 mL INJ 40 MG IVP (12:17)
[2024-08-26 12:27] LABS: Alanine Aminotransferase 8 U/L (0-33); Albumin Level 3.9 g/dL (3.5-5.2); Alkaline Phosphatase 153 U/L (35-105); Blood Urea Nitrogen 17 mg/dL (6-20); C Reactive Protein 41.9 mg/L (0.0-4.9); Calcium 9.6 mg/dL (8.5-10.5); Carbon Dioxide 25 mmol/L (22-29); Chloride 91 mmol/L (98-107); Creatinine Clr Calc Pharmacy 57.8717; Globulin 4.6 g/dL (1.3-4.6); Glomerular Filtration Rate 51.2 mL/min (90-130); Glucose 153 mg/dL (65-115); Lipase 26 U/L (13-60); Osmolality Calculated 279 mOsm/kg (285-295); Sodium 132 mmol/L (136-145); Total Bilirubin 1.7 mg/dL (0.15-1.2); Total Protein 8.5 g/dL (6.6-8.7)
[2024-08-26 12:33] LABS: Lactic Sepsis W/Reflex 2.1 mmol/L (0.5-2.2)
[2024-08-26 12:35] LABS: Anion Gap 19.7 (5-19); Aspartate Amino Transferase 16 U/L (0-32); Potassium 3.7 mmol/L (3.5-5.1)
[2024-08-26] MEDS: diphenhydrAMINE 50 mg/mL SDV 1mL 25 MG IVP ×2 (13:27→19:01)
[2024-08-26] MEDS: methylPREDNISolone sod succ 125 mg/2 mL INJ IVP (13:28)
[2024-08-26] MEDS: iohexol 350 mg/mL 500 mL Btl (per mL) IV (13:48)
[2024-08-26 14:02] LABS: Reflex Lactate Order REFLEX LACTIC ORDERD
[2024-08-26 14:12] LABS: Bilirubin Urine Negative (Negative); Blood Urine Negative (Negative); Glucose Urine UA Negative (Normal); Ketones Urine Negative (Negative); Leukocyte Esterase Urine Negative (Negative); Nitrate Urine Negative (Negative); Protein Urine Negative (Negative); Specific Gravity, Urine 1.016 (1.005-1.030); Urine Appearance Clear (CLEAR); Urine Color Yellow (Yellow); Urobilinogen Urine 0.2 mg/dL (Negative); pH Urine 6.5 (5-7)
[2024-08-26 14:15] LABS: Add Urine Microscopic? YES; Bacteria Urine None Seen /hpf; Hyaline Casts Urine 3.71 /lpf; RBC Urine 0-2 /hpf (0-2); Squamous Epithelial Cell Urine 0-5 /hpf (0-5); WBC Urine 0-5 /hpf (0-5)
[2024-08-26 15:04] LABS: Lactic Acid level (Lactate) 2.1 mmol/L (0.5-2.2)
--- NOTE | 2024-08-26 17:05 | PC.NURSE ---
attempted ng tube x3, pt continues to states no, she doesn't want it, charge nurse aware. Dr. Rose in room with pt and made aware. awaiting pt decision to stay or leave per
[2024-08-26] MEDS: LORazepam 2 mg/mL INJ 1 mL 1 MG IVP (17:38)
--- NOTE | 2024-08-26 17:58 | XRR_ITS ---
PROCEDURE INFORMATION: Exam: XR Chest Exam date and time: 08/26/2024 5:59 PM Age: 58 years old Clinical indication: Device placement; Ng tube; Additional info: Ng tube placement TECHNIQUE: Imaging protocol: Radiologic exam of the chest. Views: 1 view. COMPARISON: CT chest [facility] [id number] 02/26/2024 11:08 AM FINDINGS: Tubes, catheters and devices: NG tube noted in the stomach. Lungs: Unremarkable. No consolidation. Pleural spaces: Unremarkable. No pleural effusion. No pneumothorax. Heart/Mediastinum: Unremarkable. No cardiomegaly. Bones/joints: Unremarkable. XR/XR chest 1V portable [id number] IMPRESSION: NG tube in proper positioning.
--- NOTE | 2024-08-26 18:20 | PC.NURSE ---
NG placed, verified with X-ray, Dr. Pulido aware. Suction in place.
[2024-08-26] MEDS: sodium chloride 0.9% 1,000 ML 150 ML IV (18:39)
--- NOTE | 2024-08-26 18:48 | P.HP_ITS ---
Providers/Chief Complaint 2 Admitting Physician: Flakito Rose Primary Care Provider: Farhat Mejias MD Chief Complaint: N/V x 6 days History of Present Illness 58-year-old lady with history of diverticulitis, history of complicated diverticulitis with multiple intra-abdominal abscesses, previously undergoing abdominal washout, adhesiolysis, bowel resection in 2019, with chronic diarrhea, additionally with complication with chronically draining abdominal wall seroma, with medical history also including liver cirrhosis, HTN, PAD, COPD, chronic smoker, chronic back pain with radiculopathy, DDD, generalized anxiety, MDD, other medical problems came to ER for evaluation due to abdominal pain, nausea and vomiting for about the last 6 days. She had a small bowel movement yesterday today. Passed minimal flatus. Has had nausea, abdominal pain and a lot of belching. Not tolerating food or drink. Took laxatives at home without any improvement. CT abdomen pelvis obtained in ER showed fluid-filled distended majority of the colon as well as diffusely fluid-filled small bowel. With finding of apparent transition point in the distal descending colon/proximal sigmoid colon, underdistended through the rectum. An underlying stricture or mass in this region not excluded. In enteritis is also a consideration. Additional incidental fluid-filled collection identified in the anterior abdominal wall near the periumbilical region measuring 6.3 x 1.7 cm, which could reflect a seroma or old hematoma from prior incision site. Incidentally noted cirrhotic liver. Her condition and findings were discussed by ER physician with the surgeon on-call, with subsequent call and request for hospitalization to hospitalist. As per surgery recommendation NG tube placement was attempted but not successful in ER and she was started on IV fluids. Patient and her daughter are additionally concerned with regards to infection stating that her presentation is very similar to prior presentation before she became severely ill. They are very concerned about leukocytosis. She and her daughter considered transfer to outside facility, however, decided against this, decided to pursue admission here. She denies any history of C. difficile infection. Review of Systems 2 Const: Denies: fever(s), chills, body aches or malaise ENMT: Denies: throat pain Card: Denies: chest pain, edema, pre-syncope or dyspnea on exertion Resp: Denies: dyspnea, productive cough, change in phlegm color or hemoptysis GI: Reports: abdominal pain, nausea, vomiting and diarrhea (Chronic); Denies: constipation, hematochezia or melena : Denies: flank pain, urinary frequency or hematuria Musc: Denies: back pain, joint swelling or joint redness Skin/Breast: Denies: rash or new lesions Neuro: Denies: headache(s) or confusion Medications/Allergies Home Medications Medication Instructions Recorded Confirmed Last Taken Type guaifenesin 600 mg tablet, 600 mg PO Q12H PRN Cough 12/21/22 08/26/24 08/25/24 History extended release 12 hr (Mucinex) atorvastatin 10 mg tablet 10 mg PO DAILY #90 tabs 09/19/23 08/26/24 08/25/24 Rx valsartan 80 mg tablet 80 mg PO DAILY@09 #90 tabs 09/19/23 08/26/24 08/25/24 Rx pantoprazole 40 mg tablet,delayed 40 mg PO BID #90 tabs 04/30/24 08/26/24 08/25/24 Rx release (Protonix) citalopram 40 mg tablet (Celexa) 40 mg PO .morning #90 tabs 05/05/24 08/26/24 08/25/24 Rx gabapentin 300 mg capsule 300 mg PO TID #270 caps 05/05/24 08/26/24 08/25/24 Rx amitriptyline 25 mg tablet 25 mg PO BEDTIME #90 tabs 07/01/24 08/26/24 08/25/24 Rx bupropion HCl 150 mg tablet,12 hr 150 mg PO QAM #30 tabs 07/16/24 08/26/24 08/25/24 Rx sustained-release (Wellbutrin SR) potassium chloride 20 mEq 20 meq PO TID #270 tabs 07/16/24 08/26/24 08/25/24 Rx tablet,extended release(part/cryst) (Klor-Con M) baclofen 10 mg tablet See Rx Instructions .Route 07/21/24 08/26/24 08/25/24 Rx .COMPLEX #90 tabs alprazolam 1 mg tablet 1 mg PO TID PRN anxiety #90 tabs 08/08/24 08/26/24 08/25/24 Rx acetaminophen 500 mg tablet 500 mg PO Q6H PRN Pain 12/08/26/24 08/25/24 History hydrochlorothiazide 50 mg tablet 50 mg PO DAILY 08/26/24 08/26/24 08/25/24 History Allergies Allergy/AdvReac Type Severity Reaction Status Date / Time amoxicillin Allergy Severe ALGY-Rash Verified 05/05/24 12:50 codeine Allergy Unknown rash, Verified 05/05/24 12:50 itching Penicillins Allergy Unknown rash, Verified 05/05/24 12:50 itching Sulfa (Sulfonamide Allergy Unknown rash, Verified 05/05/24 12:50 Antibiotics) itching Iodinated Contrast Media Allergy Unknown Verified 05/05/24 12:50 PFSH Acute 2 PFSH: Medical History Eczema Abnormal urinalysis Surgical site infection Abdominal infection Open abdominal wall wound Hyperlipidemia HTN (hypertension) PAD (peripheral artery disease) Cirrhosis Psychiatric care Hypokalemia Sepsis Abdominal wall abscess at site of surgical wound Acid reflux Peritonitis (acute) generalized COPD (chronic obstructive pulmonary disease) Pneumonia Shock liver Rhabdomyolysis Septic shock Acute kidney injury Bowel perforation Nicotine dependence, cigarettes, uncomplicated Generalized anxiety disorder Major depressive disorder, recurrent severe 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, degenerative, lumbar spine Intervertebral disc disorder with radiculopathy of lumbosacral region Surgical History Hx of colonoscopy with polypectomy History of esophagogastroduodenoscopy (EGD) H/O drainage of abscess (~12/13/20) Intra-abdominal H/O exploratory laparotomy drainage of intra abdominal abscess Status post exploratory laparotomy H/O of hysterectomy with bilateral oophorectomy Family History Mother Congestive heart failure (CHF) Cancer mother Other Chronic kidney disease (CKD) Hypertension Lung disease Stroke Denies family history of Diabetes Clotting disorder Dementia Hyperlipidemia Psychiatric illness Anesthesia complication Bleeding disorder Social History Smoking and tobacco/nicotine status: former use of tobacco/nicotine Alcohol intake: current Alcohol intake frequency: holidays/special occasions only Substance/Drug Use: current Substance/Drug use frequency: few times a month Lives independently: Yes Household members: family Marital status: Current occupational status: disabled Special samuel needs: No Agree to transfusion: Yes Vitals/I&O/Wt Last Vital Signs Temp 97.7 F 08/26/24 11:26 Pulse 92 08/26/24 18:11 Resp 18 08/26/24 18:11 BP 128/91 08/26/24 18:11 Pulse Ox 91 08/26/24 18:11 O2 Del Method Room Air 08/26/24 18:11 08/26/24 08/26/24 08/26/24 06:59 14:59 22:59 Intake Total 1000 / 1000 1000 / 2000 Balance 1000 / 1000 1000 / 2000 Weight last 48 hrs Weight 90.718 kg Physical Exam 2 Narrative: Accompanied by her daughter. Const: COMMON NORMALS: patient oriented x3 and alert GENERAL APPEARANCE: c ooperative ORIENTATION/CONSCIOUSNESS: Yes awake HENMT: COMMON NORMALS: oropharynx normal Neck/C-Spine: COMMON NORMALS: no JVD Resp: COMMON NORMALS: normal respiratory effort and clear to auscultation bilaterally AUSCULTATION: clear to auscultation bilaterally Cardio: COMMON NORMALS: no JVD, regular rhythm, S1 normal heart sound present, S2 normal heart sound present and No murmurs present (Cardio) RHYTHM: regular rhythm HEART SOUNDS: S1 normal heart sound present and S2 normal heart sound present GI: COMMON NORMALS: Soft to palpation INSPECTION: Yes abdominal distension PALPATION: Yes Soft to palpation and Yes Tenderness to palpation present (GI) Extremity: COMMON NORMALS: no joint enlargement and no pedal edema Neuro: COMMON NORMALS: patient oriented x3 and moves all extremities S ENSORIUM/ORIENTATION: Yes alert Skin: COMMON NORMALS: no rashes or lesions noted GENERAL SKIN EXAM: no rashes or lesions noted Data 08/26/24 11:45 08/26/24 11:45 A&P Assessment and plan (1) Bowel obstruction: Nausea and vomiting, abdominal pain, intolerance of oral intake over the last 6 days. Complicated by dehydration, acute kidney injury. Reduced stool output. To reduced flatus. Possible transition point in the colon. Fluid-filled colon, small bowel. She has chronic diarrhea. Noted leukocytosis 19.78. History of complicated diverticulitis, intra-abdominal abscesses, bowel resection, lysis of adhesions. Abdominal wall seroma. Reviewed vitals, CBC, CMP, CRP, lipase, UA, chest x-ray, CT abdomen pelvis. Reviewed ER provider note, discussed with ER provider. Surgery contacted for admission in ER, will be consulting due to medical problems, admitted under hospitalist. She is history of cirrhosis additional medical problems as below. Other issues have been at baseline. NG tube has been attempted in ER but unsuccessful. IV fluids started. Monitor for risk of fluid overload. Discussed with her ambulation, she will attempt, although ambulation is limited due to peripheral chill disease, chronic back pain. Bowel rest. Pending surgical evaluation. With chronic diarrhea, with leukocytosis, possible enteritis will additionally request stool studies with C. difficile, stool studies for Salmonella, Shigella, complete Bactrim. She and her daughter are very concerned about possible early infection with high leukocytosis, with history of complicated infections ending up with sepsis, multiple comorbidities. She they understand risk of starting antibiotics including C. difficile and other potentially severe complications, but still would like to initiate empiric antibiotic therapy for now. She is immunocompromised with liver cirrhosis. She is allergic to penicillin, will provide coverage with ciprofloxacin and Flagyl for now. Monitor for risk of worsening diarrhea, C. difficile infection. . Collect blood cultures. Plan IRMA: Creatinine 1.1. Anion gap 19.7. Reviewed potassium, bicarb. Lactic acid. Monitor UOP. Hx of complicated diverticulitis with multiple intra-abdominal abscesses, previously undergoing abdominal washout, adhesiolysis, bowel resection in 2020, with Chronic diarrhea, Chronically draining abdominal wall seroma, Lliver cirrhosis, etiology unknown. She states was told previously that it was likely due to septic shock. Discussed with her unsure that this would be a common cause of cirrhosis. States she does not drink alcohol, previously noted occasional alcoholic beverages. Does appear to have metabolic syndrome. Discussed with her and her daughter's, to seek further follow-up with primary provider for further assessment of etiology of liver as well as follow-up on cirrhosis and possible related complications. HTN, monitor blood pressures, blood pressure currently soft, with nausea vomiting, dehydration, hold antihypertensives for now. PAD, continue statin COPD, DuoNebs, oxygen support as needed chronic smoker, she has been on Wellbutrin, but unclear how well she may be able to absorb the medication. Continue for now. Discussed smoking cessation with her for 4 minutes overall. She states she will let us know in case she will decide she wants nicotine replacement with patches and/or lozenges. Chronic back pain with radiculopathy, continue baclofen, amitriptyline, gabapentin DDD, Generalized anxiety, MDD, Other medical problems Attestations 2 Medical Necessity Statement*: Admission over 2 midnights anticipated for assessment management of bowel obstruction, with inability to tolerate oral intake, with nausea and vomiting, abdominal pain, with past complicated history with bowel resection, multiple adhesions, after complicated diverticulitis, obtain abdominal abscesses, with chronic diarrhea, and a lady with multiple underlying comorbidities as above including liver cirrhosis. Diagnoses Bowel obstruction K56.609
--- NOTE | 2024-08-26 19:23 | PC.NURSE ---
pt o2 sat continues to decline to mid 80s, pt placed on 2L NC, Dr. Pulido notified.
--- NOTE | 2024-08-26 19:51 | PC.NURSE ---
med surg nurse Zaira to call back to take report.
--- NOTE | 2024-08-26 20:20 | PC.NURSE ---
report called to med surg nurse Meneses at 2020.
[2024-08-26] MEDS: enoxaparin 40 mg/0.4 mL Syringe SUBCUT (20:58)
[2024-08-26] MEDS: metroNIDAZOLE IV 500 MG/100 ML PREMIX 100 MG IV (20:58)
[2024-08-26] MEDS: ciprofloxacin 400 MG/200 ML PREMIX 200 MG IV (21:05)
[2024-08-27] VITALS: BP 131/82; PULSE 99; RESP 18; TEMP 36.6; O2SAT 93
--- NOTE | 2024-08-27 01:28 | PC.NURSE ---
THIS RN ANSWERED THE PT CALL LIGHT TO GO TO THE BATHROOM. WHILE IN THERE PT WAS VISIBLY UNCOMFORTABLE AND DRY HEAVING. PT ASKED THIS RN DOES THIS HAVE TO STAY IN? IT IS DANGLING IN THE BACK OF MY THROAT AND MAKING ME SICK. THIS RN EDUCATED THE IMPORTANCE OF MAINTAINING THE NG TUBE TO HELP ALLEVIATE HER SYMPTOMS. THIS RN ALSO OFFERED ZOFRAN TO HELP WITH THE DRY HEAVING BUT PT REFUSED. AFTER PT GOT BACK TO BED, PT WAS DRY HEAVING MORE FREQUENTLY AND BEGINNING TO MESS WITH THE NG TUBE. THIS RN ASSESSED THE PLACEMENT OF THE NG AND DETERMINED IT WAS STILL IN THE STOMACH THROUGH AUSCULTATION. PT SAID I CANT TAKE THIS ANYMORE IT HAS TO COME OUT NOW. I CAN TELL THE DOCTOR MYSELF BY THIS IS MAKING IT WORSE. PT STARTED PULLING NG OUT, THIS RN STOPPED THE PT AND HELPED REMOVED THE NG. HOSPITALIST ROENTGENOLOGY TEACHER WAS NOTIFIED. NG HAS HAD NO OUTPUT SINCE PT GOT TO THE FLOOR AT 2100. THIS RN WILL CONTINUE TO MONITOR PT UNTIL THE END OF THIS RNS SHIFT.
[2024-08-27] MEDS: sodium chloride 0.9% 1,000 ML 150 ML IV ×3 (02:20→17:11)
[2024-08-27] MEDS: metroNIDAZOLE IV 500 MG/100 ML PREMIX 100 MG IV ×4 (02:22→20:13)
[2024-08-27 04:00] VITALS: BP 108/67; PULSE 95; RESP 16; TEMP 37.1; O2SAT 91
[2024-08-27 04:50] LABS: Basophils # 0.1 10^3/uL (0.0-0.1); Basophils % 0.3 %; Eosinophils % 0.1 %; Hematocrit 52.4 % (36-47); Lymphocytes # 1.1 10^3/uL (0.8-4.8); Lymphocytes % 4.5 %; Mean Corpuscular HGB Conc 32.3 g/dL (30-55); Mean Corpuscular Hemoglobin 28.8 pg (27-33); Mean Corpuscular Volume 89.3 fl (85-98); Mean Platelet Volume 8.7 fL (7.4-10.4); Monocytes % 4.1 %; Neutrophils # 22.53 10^3/uL (1.8-7.7); Neutrophils % 90.2 %; Nucleated Red Blood Cells % 0 %; Platelet Count 196 10^3/cmm (157-399); Red Blood Count 5.87 10^6/uL (3.85-5.65); Red Cell Distribution Width 14.2 % (12.1-15.1); White Blood Count 24.97 10^3/uL (3.29-11.43)
[2024-08-27 05:18] LABS: Alanine Aminotransferase 8 U/L (0-33); Albumin Level 3.1 g/dL (3.5-5.2); Alkaline Phosphatase 115 U/L (35-105); Anion Gap 17.3 (5-19); Aspartate Amino Transferase 10 U/L (0-32); Blood Urea Nitrogen 17 mg/dL (6-20); Calcium 7.8 mg/dL (8.5-10.5); Carbon Dioxide 23 mmol/L (22-29); Chloride 97 mmol/L (98-107); Creatinine Clr Calc Pharmacy 80.1517; Globulin 3.4 g/dL (1.3-4.6); Glomerular Filtration Rate 73.9 mL/min (90-130); Glucose 117 mg/dL (65-115); Magnesium 1.4 mg/dL (1.7-2.3); Osmolality Calculated 281 mOsm/kg (285-295); Potassium 3.3 mmol/L (3.5-5.1); Sodium 134 mmol/L (136-145); Total Protein 6.5 g/dL (6.6-8.7)
--- NOTE | 2024-08-27 07:24 | P.CONIM_ITS ---
Providers/Reason For Consult 2 Consulting Physician/Specialty*: Dr. Anshul Mehta, DO/General Surgery Reason for Consult*: Abdominal pain nausea, vomiting and diarrhea Attending Physician: Flakito Rose Primary Care Provider: Farhat Mejias MD History of Present Illness History of Present Illness Irma Jones is a 58 year old female with a complicated abdominal surgery history who presented to the hospital with acute nausea vomiting, abdominal pain and diarrhea. She normally has diarrhea daily. I first met Ms. Jones in office almost 2 years ago and referred her to colorectal surgery. She is established with a colorectal surgeon at [facility]. In 2019 she presented to the hospital with sigmoid diverticulitis complicated by perforation. She underwent exploratory laparotomy at that time by another surgeon. Her sigmoid colon was not resected due to difficulty and scarring of the sigmoid colon into the pelvis, per the surgeons report. She subsequently developed an enterocutaneous fistula that still opens and drains succus and flatus at times. She reports left lower quadrant abdominal pain that does not radiate. Palpation makes pain worse. Nothing makes pain better. She denies any hematochezia and/or melena. Denies any hematemesis. A CT of the abdomen pelvis shows a narrowing of the sigmoid colon, possible large bowel obstruction. However this would at worst be a partial obstruction as she is passing gas and having bowel movements. She is minimally tender to palpation upon my exam today Review of Systems 2 General: Reports: 10 or more systems reviewed and unremarkable except in HPI and below Medications/Allergies Home Medications Medication Instructions Recorded Confirmed Last Taken Type guaifenesin 600 mg tablet, 600 mg PO Q12H PRN Cough 12/21/22 08/26/24 08/25/24 History extended release 12 hr (Mucinex) atorvastatin 10 mg tablet 10 mg PO DAILY #90 tabs 09/19/23 08/26/24 08/25/24 Rx valsartan 80 mg tablet 80 mg PO DAILY@09 #90 tabs 09/19/23 08/26/24 08/25/24 Rx pantoprazole 40 mg tablet,delayed 40 mg PO BID #90 tabs 04/30/24 08/26/24 08/25/24 Rx release (Protonix) citalopram 40 mg tablet (Celexa) 40 mg PO .morning #90 tabs 05/05/24 08/26/24 08/25/24 Rx gabapentin 300 mg capsule 300 mg PO TID #270 caps 05/05/24 08/26/24 08/25/24 Rx amitriptyline 25 mg tablet 25 mg PO BEDTIME #90 tabs 07/01/24 08/26/24 08/25/24 Rx bupropion HCl 150 mg tablet,12 hr 150 mg PO QAM #30 tabs 07/16/24 08/26/24 08/25/24 Rx sustained-release (Wellbutrin SR) potassium chloride 20 mEq 20 meq PO TID #270 tabs 07/16/24 08/26/24 08/25/24 Rx tablet,extended release(part/cryst) (Klor-Con M) baclofen 10 mg tablet See Rx Instructions .Route 07/21/24 08/26/24 08/25/24 Rx .COMPLEX #90 tabs alprazolam 1 mg tablet 1 mg PO TID PRN anxiety #90 tabs 08/08/24 08/26/24 08/25/24 Rx acetaminophen 500 mg tablet 500 mg PO Q6H PRN Pain 08/26/24 08/26/24 08/25/24 History hydrochlorothiazide 50 mg tablet 50 mg PO DAILY 08/26/24 08/26/24 08/25/24 History Allergies Allergy/AdvReac Type Severity Reaction Status Date / Time amoxicillin Allergy Severe ALGY-Rash Verified 05/05/24 12:50 codeine Allergy Unknown rash, Verified 05/05/24 12:50 itching Penicillins Allergy Unknown rash, Verified 05/05/24 12:50 itching Sulfa (Sulfonamide Allergy Unknown rash, Verified 05/05/24 12:50 Antibiotics) itching Iodinated Contrast Media Allergy Unknown Verified 05/05/24 12:50 Current Medications Generic Name Dose Route Start Last Admin Trade Name Freq PRN Reason Stop Dose Admin Enoxaparin Sodium 40 mg 08/26/24 21:00 08/26/24 20:58 Enoxaparin 40 Mg/0.4 Ml Syringe SUBCUT 40 mg Q24H BRITTNEY Administration Sodium Chloride 1,000 mls @ 150 mls/hr 08/26/24 17:15 08/27/24 02:20 Sodium Chloride 0.9% IV 150 mls/hr .Q6H40M BRITTNEY Administration Ciprofloxacin/Dextrose 400 mg in 200 mls @ 200 mls/hr 08/26/24 21:00 08/26/24 23:07 Cipro IV Infused Q12H BRITTNEY Infusion Protocol Metronidazole 500 mg in 100 mls @ 100 mls/hr 08/26/24 21:00 08/27/24 03:57 Flagyl Iv IV Infused Q6H BRITTNEY Infusion Protocol PFSH Acute 2 PFSH: Medical History Eczema Abnormal urinalysis Surgical site infection Abdominal infection Open abdominal wall wound Hyperlipidemia HTN (hypertension) PAD (peripheral artery disease) Cirrhosis Psychiatric care Hypokalemia Sepsis Abdominal wall abscess at site of surgical wound Acid reflux Peritonitis (acute) generalized COPD (chronic obstructive pulmonary disease) Pneumonia Shock liver Rhabdomyolysis Septic shock Acute kidney injury Bowel perforation Nicotine dependence, cigarettes, uncomplicated Generalized anxiety disorder Major depressive disorder, recurrent severe 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, degenerative, lumbar spine Intervertebral disc disorder with radiculopathy of lumbosacral region Surgical History Hx of colonoscopy with polypectomy History of esophagogastroduodenoscopy (EGD) H/O drainage of abscess (~12/13/20) Intra-abdominal H/O exploratory laparotomy drainage of intra abdominal abscess Status post exploratory laparotomy H/O of hysterectomy with bilateral oophorectomy Family History Mother Congestive heart failure (CHF) Cancer mother Other Chronic kidney disease (CKD) Hypertension Lung disease Stroke Denies family history of Diabetes Clotting disorder Dementia Hyperlipidemia Psychiatric illness Anesthesia complication Bleeding disorder Social History Smoking and tobacco/nicotine status: former use of tobacco/nicotine Alcohol intake: current Alcohol intake frequency: holidays/special occasions only Substance/Drug Use: current Substance/Drug use frequency: few times a month Lives independently: Yes Household members: family Marital status: Current occupational status: disabled Special samuel needs: No Agree to transfusion: Yes Vitals/I&O/Wt Last Vital Signs Temp 98.8 F 08/27/24 04:00 Pulse 95 08/27/24 04:00 Resp 16 08/27/24 04:00 BP 108/67 08/27/24 04:00 Pulse Ox 91 08/27/24 04:00 O2 Del Method Room Air 08/27/24 04:00 O2 Flow Rate 1 08/27/24 00:00 08/26/24 08/27/24 08/27/24 22:59 06:59 14:59 Intake Total 1099 1255 / 3355 Balance 1099 1255 / 3355 Weight last 48 hrs Weight 203 lb 14.4 oz Weight 202 lb 9.6 oz Weight 200 lb Physical Exam 2 Narrative: General : Patient is well developed , no acute distress, oriented x3 Head : Normal cephalic, a-traumatic. Ears : Pinnae and external canal are normal. Hearing is normal. Eyes : PERRLA, Sclera and injection are normal. No conjunctival discharge. Nose : Mucous membranes are without erythema. Throat : buccal mucosa is normal, gums are without significant recession or hypertrophy. Lungs : Equal chest rise bilaterally, no use of accessory muscles, trachea is midline. Cor : Rate and rhythm are normal. Abdomen : Soft, distended, mild left lower quadrant abdominal pain, no g/r/m Extremities : No edema, no cyanosis or clubbing, dorsalis pedis pulses are present bilaterally, non-tender to palpation of calves. Upper extremities are normal bilaterally. Back : non-tender to palpation, no CVA tenderness. Neuro : CN II - XII intact, Upper and lower extremities have equal and full strength Data 08/27/24 04:25 08/27/24 04:25 Micro: Microbiology 08/26/24 20:22 Blood Culture - Preliminary Blood SPECIMEN COLLECTED 08/26/24 20:18 Blood Culture - Preliminary Blood SPECIMEN COLLECTED A&P Assessment and plan (1) Stenosis colon: (2) Diverticulosis: Plan This is a very pleasant 58-year-old female with a history of sigmoid diverticulitis complicated by perforation in 2019 and has subsequently developed a stenosis of her sigmoid colon versus possible tumor. She at worst has a partial colon obstruction as she is passing flatus and having bowel movements still. Her abdomen is very mildly tender. Dr. Lara is covering. We are going to give her a bowel prep in hopes of performing a colonoscopy to investigate her sigmoid colon for stenosis versus possible tumor. If she does not tolerate the bowel prep, she will require surgery during this hospital stay. I recommend transfer to her established surgeon at [facility] if this happens. Likely, she will tolerate a bowel prep and colonoscopy and follow-up with her established colorectal surgeon for definitive surgery. Medical management per hospitalist Coding Level of Care Code 43130 Diagnoses Stenosis colon K56.699 Diverticulosis K57.90
[2024-08-27] MEDS: ciprofloxacin 400 MG/200 ML PREMIX 200 MG IV ×2 (07:43→20:14)
[2024-08-27 08:00] VITALS: BP 113/74; PULSE 63; RESP 15; TEMP 36.8; O2SAT 96
[2024-08-27] MEDS: bisacodyl 5 mg Tablet 20 MG PO (08:01)
--- NOTE | 2024-08-27 08:45 | PC.CHAP ---
Pastoral Care Encounter/Spiritual Assessment Type of Contact [] Declined vp emerging media visit [] Patient/Family/Request visit [] Outpatient visit [] Follow-up visit [] Physician referral [] Code/Alert [x] Routine visit [] Staff referral [] Actively dying [] Patient sleeping [] Family support [] [] Out of room [] Palliative care [] [] Receiving care in room [] Pre-surgical visit [] Trauma [] Long length of stay [] ICU visit [] Other: Relational/Emotional Strength [x] Patient feels connected with others/family/visitors/staff [] Distress [] Loneliness/isolation [] Abandonment Spirituality of Patient [x] Person of Bea [] Attends Sikh of their Bea [xx] Believes in Prayer [] Reads Bible or Caodaism materials [] There are Spiritual issues to be addressed Communications Equipment Operator Interventions [x] Prayer [x] Active listening [x] Non-anxious presence [x] Spiritual/emotional support [] Crisis/trauma care [] Spiritual counseling [] Bereavement support [] Provided bereavement packet [] Provided Bible/devotional materials [] Provided toy/stuffed animal, coloring book to patient or family member [] Provided Communion [] Anointing/[place] [] Salvation [x] Completed spiritual assessment [] Other: Impact on Illness or Injury [] Angry [] Fearful [] Anxious [] Often cries [] Exhaustion [] Unable to work [] Unable to attend catholic [] Unable to walk/stand [] Unable to read [] Unable to drive [] Unable to eat/drink [] Unable to sleep [] Unable to be with family [] Patient intubated [] Other: Summary Time spent with patient 5 min
[2024-08-27] MEDS: magnesium citrate Btl 296 mL PO ×2 (09:37→11:41)
[2024-08-27 11:44] VITALS: BP 108/59; PULSE 68; RESP 16; TEMP 36.4; O2SAT 95
[2024-08-27] MEDS: ondansetron 2 mg/ML SDV 2 mL 4 MG IVP (12:24)
[2024-08-27] MEDS: magnesium sulfate premix 2 GM/50 ML PIGGYBACK IV (13:10)
--- NOTE | 2024-08-27 13:16 | PM.MISC ---
Miscellaneous Note Note: Patient is not tolerating bowel prep. Still passing gas and diarrhea. Given concern for partial large bowel obstruction, frozen abdomen, significant comorbidities, the patient needs to be transferred to higher level of care with a colorectal surgeon. Discussed with hospitalist who will work on transfer.
[2024-08-27 16:00] VITALS: BP 127/78; PULSE 68; RESP 14; TEMP 36.6; O2SAT 95
[2024-08-27] MEDS: acetaminophen 325 mg Tablet 650 MG PO (17:23)
[2024-08-27 20:00] VITALS: BP 139/90; PULSE 95; RESP 17; TEMP 36.6; O2SAT 93
[2024-08-27] MEDS: enoxaparin 40 mg/0.4 mL Syringe SUBCUT (20:13)
--- NOTE | 2024-08-27 20:43 | P.PN_ITS ---
Subjective 2 Subjective: Without improvement so far. Still having belching, regurgitating small amounts of stomach issues/secretions. No bowel movement. Having a difficult time trying to ambulate at the bedside but did try to stand up and made a few steps. Vitals/I&O/Wt Last Vital Signs Temp 97.8 F 08/27/24 16:00 Pulse 68 08/27/24 16:00 Resp 14 08/27/24 16:00 BP 127/78 08/27/24 16:00 Pulse Ox 95 08/27/24 16:00 O2 Del Method Room Air 08/27/24 16:00 O2 Flow Rate 1 08/27/24 00:00 08/27/24 08/27/24 08/27/24 06:59 14:59 22:59 Intake Total 1255 / 3355 2397.5 / 2397.5 100 / 2497.5 Balance 1255 / 3355 2397.5 / 2397.5 100 / 2497.5 Weight last 48 hrs Weight 92.487 kg Weight 91.898 kg Weight 90.718 kg Physical Exam 2 Narrative: Accompanied by her daughter on second visit. Const: COMMON NORMALS: patient oriented x3 and alert GENERAL APPEARANCE: c ooperative ORIENTATION/CONSCIOUSNESS: Yes awake HENMT: COMMON NORMALS: oropharynx normal Neck/C-Spine: COMMON NORMALS: no JVD Resp: COMMON NORMALS: normal respiratory effort and clear to auscultation bilaterally AUSCULTATION: clear to auscultation bilaterally Cardio: COMMON NORMALS: no JVD, regular rhythm, S1 normal heart sound present, S2 normal heart sound present and No murmurs present (Cardio) RHYTHM: regular rhythm HEART SOUNDS: S1 normal heart sound present and S2 normal heart sound present GI: COMMON NORMALS: Soft to palpation INSPECTION: Yes abdominal distension PALPATION: Yes Soft to palpation and Yes Tenderness to palpation present (GI) Extremity: COMMON NORMALS: no joint enlargement and no pedal edema Neuro: COMMON NORMALS: patient oriented x3 and moves all extremities S ENSORIUM/ORIENTATION: Yes alert Skin: COMMON NORMALS: no rashes or lesions noted GENERAL SKIN EXAM: no rashes or lesions noted Data 08/27/24 04:25 08/27/24 04:25 Micro: Microbiology 08/26/24 20:22 Blood Culture - Preliminary Blood NEGATIVE TO DATE 08/26/24 20:18 Blood Culture - Preliminary Blood NEGATIVE TO DATE A&P Assessment and plan (1) Bowel obstruction: Without improvement. Not able to ambulate very much. Was seen and spoke with surgery this morning. Reviewed surgery note. Plans were to attempt prep for sigmoidoscopy, however, on additional discussion with surgery could not tolerate prep. Attempts are being made for transfer to higher level facilityWith concern for frozenAbdomen. Christine Hutchison contacted first as per prior patient and family request, however, her case was found to be too advanced with recommendation for tertiary center for [facility]. [facility], accepted for transfer after discussion with accepting team however, no bed opening current time. Placed on waiting list. Discussed with surgery. Continue conservative measures at current time. Reviewed vitals, intake and output, CBC, CMP, magnesium. Replace hypomagnesemia, hypokalemia. Monitor for risk of electrolyte abnormalities, kidney dysfunction. Recheck chemistry. Continue gentle IV hydration, monitor for risk of fluid overload. With chronic diarrhea, with leukocytosis for now continues empirically on antibiotic. Also requested C. difficile, so far and collected. Plan IRMA:Reviewed BUN, creatinine, anion gap, bicarb, electrolytes. Renal function with improvement. Creatinine 1.1. Anion gap 19.7. Reviewed potassium, bicarb. Lactic acid. Monitor UOP. Hyperbilirubinemia: Reviewed bilirubin, normalized from 1.7 yesterday. Suspect possibly cholestasis secondary to dehydration. Hx of complicated diverticulitis with multiple intra-abdominal abscesses, previously undergoing abdominal washout, adhesiolysis, bowel resection in 2019, with Chronic diarrhea, Chronically draining abdominal wall seroma, Lliver cirrhosis, etiology unknown. She states was told previously that it was likely due to septic shock. Discussed with her unsure that this would be a common cause of cirrhosis. States she does not drink alcohol, previously noted occasional alcoholic beverages. Does appear to have metabolic syndrome. Discussed with her and her daughter's, to seek further follow-up with primary provider for further assessment of etiology of liver as well as follow-up on cirrhosis and possible related complications. HTN, monitor blood pressures, blood pressure currently soft, with nausea vomiting, dehydration, hold antihypertensives for now. PAD, continue statin COPD, DuoNebs, oxygen support as needed chronic smoker, she has been on Wellbutrin, but unclear how well she may be able to absorb the medication. Continue for now. Discussed smoking cessation with her for 4 minutes overall. She states she will let us know in case she will decide she wants nicotine replacement with patches and/or lozenges. Chronic back pain with radiculopathy, continue baclofen, amitriptyline, gabapentin DDD, Generalized anxiety, MDD, Other medical problems Attestations 2 Medical Necessity Statement*: Continue admission for assessment management of bowel obstruction, unable to tolerate oral intake, has been unable to tolerate bowel prep. Pending transfer to higher level facility. Diagnoses Bowel obstruction K56.609
[2024-08-27] MEDS: lidocaine 1% 5 ML in potassium chloride premix 100 ML 52.5 ML IV (21:09)
[2024-08-27] MEDS: ALPRAZolam 0.5 mg Tablet 1 MG PO (21:10)
[2024-08-28] VITALS: BP 132/80; PULSE 91; RESP 17; TEMP 36.6; O2SAT 92
[2024-08-28] MEDS: sodium chloride 0.9% 1,000 ML 150 ML IV ×4 (00:25→20:41)
[2024-08-28] MEDS: ondansetron 2 mg/ML SDV 2 mL 4 MG IVP (00:39)
[2024-08-28] MEDS: metroNIDAZOLE IV 500 MG/100 ML PREMIX 100 MG IV ×4 (03:22→20:40)
[2024-08-28 04:00] VITALS: BP 160/95; PULSE 89; RESP 18; TEMP 37
[2024-08-28 05:24] LABS: Basophils # 0.1 10^3/uL (0.0-0.1); Basophils % 0.4 %; Eosinophils # 0.2 10^3/uL (0.0-0.8); Hematocrit 57.3 % (36-47); Lymphocytes # 1.5 10^3/uL (0.8-4.8); Lymphocytes % 9.5 %; Mean Corpuscular HGB Conc 32.3 g/dL (30-55); Mean Corpuscular Hemoglobin 28.8 pg (27-33); Mean Corpuscular Volume 89.3 fl (85-98); Mean Platelet Volume 9.1 fL (7.4-10.4); Monocytes % 6.5 %; Neutrophils # 12.49 10^3/uL (1.8-7.7); Neutrophils % 81.9 %; Nucleated Red Blood Cells % 0 %; Platelet Count 220 10^3/cmm (157-399); Red Blood Count 6.42 10^6/uL (3.85-5.65); Red Cell Distribution Width 13.9 % (12.1-15.1); White Blood Count 15.25 10^3/uL (3.29-11.43)
[2024-08-28 05:42] LABS: Alanine Aminotransferase 8 U/L (0-33); Albumin Level 3.3 g/dL (3.5-5.2); Alkaline Phosphatase 119 U/L (35-105); Anion Gap 12.1 (5-19); Aspartate Amino Transferase 13 U/L (0-32); Blood Urea Nitrogen 12 mg/dL (6-20); Calcium 8.3 mg/dL (8.5-10.5); Carbon Dioxide 29 mmol/L (22-29); Chloride 96 mmol/L (98-107); Creatinine Clr Calc Pharmacy 91.9317; Glomerular Filtration Rate 86.2 mL/min (90-130); Glucose 105 mg/dL (65-115); Osmolality Calculated 278 mOsm/kg (285-295); Potassium 3.1 mmol/L (3.5-5.1); Sodium 134 mmol/L (136-145); Total Protein 7.3 g/dL (6.6-8.7)
[2024-08-28 05:48] LABS: Magnesium 2.1 mg/dL (1.7-2.3)
[2024-08-28 07:22] VITALS: BP 143/87; PULSE 84; RESP 16; TEMP 36.4; O2SAT 91
[2024-08-28] MEDS: ciprofloxacin 400 MG/200 ML PREMIX 200 MG IV ×2 (07:43→20:41)
--- NOTE | 2024-08-28 09:55 | PM.PN ---
Subjective Subjective: Tolerating clears Abdomen benign Passing some gas Vitals/I&O/Wt Last Vital Signs Temp 97.6 F 08/28/24 07:22 Pulse 84 08/28/24 07:22 Resp 16 08/28/24 07:22 BP 143/87 08/28/24 07:22 Pulse Ox 91 08/28/24 07:22 O2 Del Method Room Air 08/28/24 07:22 O2 Flow Rate 1 08/27/24 00:00 08/27/24 08/28/24 08/28/24 22:59 06:59 14:59 Intake Total 200 / 2597.5 2242.5 / 4840.0 200 / 200 Balance 200 / 2597.5 2242.5 / 4840.0 200 / 200 Weight last 48 hrs Weight 203 lb Weight 203 lb 9.6 oz Weight 203 lb 14.4 oz Weight 202 lb 9.6 oz Weight 200 lb Physical Exam Narrative: Chest: Unlabored breathing room air. No lymphadenopathy. Heart: Regular rate and rhythm. Abdomen: Soft, nontender, distended. No masses or lymphadenopathy. Data 08/28/24 04:23 08/28/24 04:23 Micro: Microbiology 08/26/24 20:22 Blood Culture - Preliminary Blood NEGATIVE TO DATE 08/26/24 20:18 Blood Culture - Preliminary Blood NEGATIVE TO DATE A&P Assessment and plan (1) Bowel obstruction: Plan 58-year-old female with partial large bowel obstruction secondary to smoldering diverticulitis. Awaiting transfer to tertiary care. Okay for clears. Attestations Medical Necessity Statement*: NA Coding Level of Care Code Acute Code for [facility] Fwd Diagnoses Bowel obstruction K56.609
[2024-08-28 11:08] VITALS: BP 143/85; PULSE 85; RESP 15; TEMP 36.3; O2SAT 97
[2024-08-28] MEDS: ALPRAZolam 0.5 mg Tablet 1 MG PO ×2 (12:29→20:40)
[2024-08-28 15:43] VITALS: BP 136/83; PULSE 87; RESP 16; TEMP 36.8; O2SAT 93
[2024-08-28] MEDS: pantoprazole 40 mg SDV IVP (18:16)
[2024-08-28 20:00] VITALS: BP 156/85; PULSE 87; RESP 17; TEMP 36.8; O2SAT 95
--- NOTE | 2024-08-28 20:27 | PM.PN ---
Subjective Subjective: So far without major improvement although did pass small amount of flatus, had some small bowel movements. Still having nausea, regurgitating small amounts of stomach juice. Vitals/I&O/Wt Last Vital Signs Temp 98.3 F 08/28/24 20:00 Pulse 87 08/28/24 20:00 Resp 17 08/28/24 20:00 BP 156/85 08/28/24 20:00 Pulse Ox 95 08/28/24 20:00 O2 Del Method Room Air 08/28/24 15:43 O2 Flow Rate 1 08/27/24 00:00 08/28/24 08/28/24 08/28/24 06:59 14:59 22:59 Intake Total 2242.5 / 4840.0 1377.5 / 1377.5 1025 / 2402.5 Balance 2242.5 / 4840.0 1377.5 / 1377.5 1025 / 2402.5 Weight last 48 hrs Weight 92.079 kg Weight 92.351 kg Weight 92.487 kg Weight 91.898 kg Physical Exam Const: COMMON NORMALS: patient oriented x3 and alert GENERAL APPEARANCE: cooperative ORIENTATION/CONSCIOUSNESS: Yes awake HENMT: COMMON NORMALS: oropharynx normal Neck/C-Spine: COMMON NORMALS: no JVD Resp: COMMON NORMALS: normal respiratory effort and clear to auscultation bilaterally AUSCULTATION: clear to auscultation bilaterally Cardio: COMMON NORMALS: no JVD, regular rhythm, S1 normal heart sound present, S2 normal heart sound present and No murmurs present (Cardio) RHYTHM: regular rhythm HEART SOUNDS: S1 normal heart sound present and S2 normal heart sound present GI: COMMON NORMALS: Soft to palpation INSPECTION: Yes abdominal distension PALPATION: Yes Soft to palpation and Yes Tenderness to palpation present (GI) Extremity: COMMON NORMALS: no joint enlargement and no pedal edema Neuro: COMMON NORMALS: patient oriented x3 and moves all extremities SENSORIUM/ORIENTATION: Yes alert Skin: COMMON NORMALS: no rashes or lesions noted GENERAL SKIN EXAM: no rashes or lesions noted Data 08/28/24 04:23 08/28/24 04:23 Micro: Microbiology 08/26/24 20:22 Blood Culture - Preliminary Blood NEGATIVE TO DATE 08/26/24 20:18 Blood Culture - Preliminary Blood NEGATIVE TO DATE A&P Assessment and plan (1) Bowel obstruction: Without significant improvement. Although did pass small amounts of flatus, small bowel movement, but still with nausea, intermittent regurgitation of stomach views. Has been trying to do a little bit of getting up and standing, taking a few steps at the bedside. Reviewed surgery note, discussed with surgeon. They are trialing clear liquid diet. For now she is to remain on clear liquid diet until she can be evaluated by colorectal surgery. Pending transfer to [facility]. Reviewed vitals, CBC, CMP, magnesium. Continue IV hydration. Monitor for risk of fluid overload. Supplement hypokalemia. Recheck potassium level. Discussed with nursing, supportive employment case manager. With chronic diarrhea, with leukocytosis for now continues empirically on antibiotic. WBC today with some improvement down to 15.25. Empirically continue Cipro, Flagyl. Monitor for risk of C. difficile. Also requested C. difficile, so far and collected. Plan IRMA:Reviewed BUN, creatinine, anion gap, bicarb, electrolytes. IRMA resolved. Hyperbilirubinemia: Resolved. Reviewed bilirubin, normalized from 1.7 yesterday. Suspect possibly cholestasis secondary to dehydration. Hx of complicated diverticulitis with multiple intra-abdominal abscesses, previously undergoing abdominal washout, adhesiolysis, bowel resection in 2019, with Chronic diarrhea, Chronically draining abdominal wall seroma, Lliver cirrhosis, etiology unknown. She states was told previously that it was likely due to septic shock. Discussed with her unsure that this would be a common cause of cirrhosis. States she does not drink alcohol, previously noted occasional alcoholic beverages. Does appear to have metabolic syndrome. Discussed with her and her daughter's, to seek further follow-up with primary provider for further assessment of etiology of liver as well as follow-up on cirrhosis and possible related complications. HTN, monitor blood pressures, blood pressure currently soft, with nausea vomiting, dehydration, hold antihypertensives for now. PAD, continue statin COPD, DuoNebs, oxygen support as needed chronic smoker, she has been on Wellbutrin, but unclear how well she may be able to absorb the medication. Continue for now. Discussed smoking cessation with her for 4 minutes overall. She states she will let us know in case she will decide she wants nicotine replacement with patches and/or lozenges. Chronic back pain with radiculopathy, continue baclofen, amitriptyline, gabapentin DDD, Generalized anxiety, MDD, Other medical problems GERD: Resume PPI Attestations Medical Necessity Statement*: Continue admission for assessment management of bowel obstruction, unable to tolerate oral intake, has been unable to tolerate bowel prep. Pending transfer to higher level facility. and High MDM includes amount and/or complexity of data reviewed/ordered [ previous or external records, resulted lab(s)/test(s), ordered lab(s)/test(s) and other healthcare professional discussion] and described risk of complication, morbidity or mortality of management as documented Diagnoses Bowel obstruction K56.609
[2024-08-28] MEDS: lidocaine 1% 5 ML in potassium chloride premix 100 ML 52.5 ML IV (20:40)
[2024-08-28] MEDS: enoxaparin 40 mg/0.4 mL Syringe SUBCUT (20:40)
[2024-08-29] VITALS: BP 127/80; PULSE 91; RESP 18; TEMP 36.9; O2SAT 94
[2024-08-29] MEDS: metroNIDAZOLE IV 500 MG/100 ML PREMIX 100 MG IV ×4 (03:30→21:58)
[2024-08-29] MEDS: sodium chloride 0.9% 1,000 ML 150 ML IV ×2 (03:30→10:59)
[2024-08-29 04:00] VITALS: BP 144/87; PULSE 83; RESP 16; TEMP 36.7; O2SAT 95
[2024-08-29 05:00] LABS: Basophils % 0.3 %; Eosinophils # 0.2 10^3/uL (0.0-0.8); Eosinophils % 1.7 %; Hematocrit 49.8 % (36-47); Lymphocytes # 1.8 10^3/uL (0.8-4.8); Lymphocytes % 14.2 %; Mean Corpuscular HGB Conc 32.9 g/dL (30-55); Mean Corpuscular Hemoglobin 28.9 pg (27-33); Mean Corpuscular Volume 87.8 fl (85-98); Mean Platelet Volume 8.8 fL (7.4-10.4); Monocytes # 1.2 10^3/uL (0.2-0.9); Monocytes % 9.7 %; Neutrophils # 9.29 10^3/uL (1.8-7.7); Neutrophils % 73.5 %; Nucleated Red Blood Cells % 0 %; Platelet Count 182 10^3/cmm (157-399); Red Blood Count 5.67 10^6/uL (3.85-5.65); Red Cell Distribution Width 13.7 % (12.1-15.1); White Blood Count 12.63 10^3/uL (3.29-11.43)
[2024-08-29 05:20] LABS: Alanine Aminotransferase 6 U/L (0-33); Albumin Level 2.8 g/dL (3.5-5.2); Alkaline Phosphatase 94 U/L (35-105); Aspartate Amino Transferase 12 U/L (0-32); Blood Urea Nitrogen 9 mg/dL (6-20); Calcium 7.6 mg/dL (8.5-10.5); Carbon Dioxide 27 mmol/L (22-29); Chloride 96 mmol/L (98-107); Creatinine Clr Calc Pharmacy 107.1648; Globulin 3.4 g/dL (1.3-4.6); Glucose 92 mg/dL (65-115); Osmolality Calculated 276 mOsm/kg (285-295); Sodium 134 mmol/L (136-145); Total Bilirubin 0.9 mg/dL (0.15-1.2); Total Protein 6.2 g/dL (6.6-8.7)
[2024-08-29] MEDS: pantoprazole 40 mg SDV IVP ×2 (05:57→18:04)
[2024-08-29 07:21] VITALS: BP 137/84; PULSE 84; RESP 15; TEMP 36.6; O2SAT 96
[2024-08-29] MEDS: ciprofloxacin 400 MG/200 ML PREMIX 200 MG IV ×2 (08:02→20:33)
--- NOTE | 2024-08-29 09:27 | P.PN_ITS ---
Subjective 2 Subjective: Doing okay on clears Passing gas Abdomen benign White count down, afebrile Vitals/I&O/Wt Last Vital Signs Temp 97.8 F 08/29/24 07:21 Pulse 84 08/29/24 07:21 Resp 15 08/29/24 07:21 BP 137/84 08/29/24 07:21 Pulse Ox 96 08/29/24 07:21 O2 Del Method Room Air 08/29/24 07:21 O2 Flow Rate 1 08/27/24 00:00 08/28/24 08/29/24 08/29/24 22:59 06:59 14:59 Intake Total 1171.667 / 2549.167 1433.333 / 3982.500 320 / 320 Balance 1171.667 / 2549.167 1433.333 / 3982.500 320 / 320 Weight last 48 hrs Weight 203 lb 14.4 oz Weight 203 lb 9.6 oz Weight 203 lb Weight 203 lb 9.6 oz Physical Exam 2 Narrative: Chest: Unlabored breathing room air. Heart: Regular rate and rhythm. Abdomen: Soft, nontender, distended. Data 08/29/24 04:06 08/29/24 04:06 A&P Assessment and plan (1) Large bowel obstruction: Plan 58-year-old female with partial large bowel obstruction secondary to smoldering diverticulitis. Continue clears and nonoperative management. Will awaiting transfer to higher level of care. Attestations 2 Medical Necessity Statement*: N/A Coding Level of Care Code 94241 Diagnoses Large bowel obstruction K56.609 Time Spent (min) 30
--- NOTE | 2024-08-29 10:06 | PC.SOCIAL ---
IMM Updated Updated pt on IMM. No questions voiced. Provided pt a copy. Initialed, dated, & timed a copy & placed in chart.
[2024-08-29] MEDS: ALPRAZolam 0.5 mg Tablet 1 MG PO ×2 (12:03→20:33)
[2024-08-29 12:25] VITALS: BP 115/72; PULSE 83; RESP 16; TEMP 36.7; O2SAT 94
[2024-08-29 15:06] VITALS: BP 135/85; PULSE 84; RESP 16; TEMP 36.7; O2SAT 92
[2024-08-29 20:15] VITALS: BP 138/92; PULSE 79; RESP 16; TEMP 36.4; O2SAT 94
[2024-08-29] MEDS: enoxaparin 40 mg/0.4 mL Syringe SUBCUT (20:33)
--- NOTE | 2024-08-29 22:01 | P.PN_ITS ---
Subjective 2 Subjective: She is subjectively feeling slightly better. Distention has been gradually improving. She is passing small amounts of flatus. So far tolerating clear liquids. Pending transfer for assessment by colorectal surgery. Vitals/I&O/Wt Last Vital Signs Temp 97.6 F 08/29/24 20:15 Pulse 79 08/29/24 20:15 Resp 16 08/29/24 20:15 BP 138/92 08/29/24 20:15 Pulse Ox 94 08/29/24 20:15 O2 Del Method Room Air 08/29/24 15:06 O2 Flow Rate 1 08/27/24 00:00 08/29/24 08/29/24 08/29/24 06:59 14:59 22:59 Intake Total 1433.333 / 3982.500 1540 / 1540 1520 / 3060 Balance 1433.333 / 3982.500 1540 / 1540 1520 / 3060 Weight last 48 hrs Weight 92.487 kg Weight 92.351 kg Weight 92.079 kg Weight 92.351 kg Physical Exam 2 Const: COMMON NORMALS: patient oriented x3 and alert GENERAL APPEARANCE: c ooperative ORIENTATION/CONSCIOUSNESS: Yes awake HENMT: COMMON NORMALS: oropharynx normal Neck/C-Spine: COMMON NORMALS: no JVD Resp: COMMON NORMALS: normal respiratory effort and clear to auscultation bilaterally AUSCULTATION: clear to auscultation bilaterally Cardio: COMMON NORMALS: no JVD, regular rhythm, S1 normal heart sound present, S2 normal heart sound present and No murmurs present (Cardio) RHYTHM: regular rhythm HEART SOUNDS: S1 normal heart sound present and S2 normal heart sound present GI: COMMON NORMALS: Soft to palpation INSPECTION: Yes abdominal distension PALPATION: Yes Soft to palpation and Yes Tenderness to palpation present (GI) Extremity: COMMON NORMALS: no joint enlargement and no pedal edema Neuro: COMMON NORMALS: patient oriented x3 and moves all extremities S ENSORIUM/ORIENTATION: Yes alert Skin: COMMON NORMALS: no rashes or lesions noted GENERAL SKIN EXAM: no rashes or lesions noted Data 08/29/24 04:06 08/29/24 04:06 A&P Assessment and plan (1) Bowel obstruction: Reviewed surgery note. Continue nonoperative management. Clear liquids. Pending transfer to [facility] for further assessment by colorectal surgery. Discussed with disease case manager, nursing, [facility] has called to check up on her, hoping for a bed opening soon. She is overall feeling slightly better. Distention with some improvement. So far he is able to tolerate clear liquids. Continue without escalation of diet due to high risk of Geraldine obstruction. Continue IV hydration, reduce IV fluid rate to 75 mL/h. Reviewed CBC, BMP. Reviewed blood culture, so far remaining negative. Still having leukocytosis 12.63. Will check procalcitonin. With chronic diarrhea, with leukocytosis for now continues empirically on antibiotic. WBC today with some improvement down to 15.25. Empirically continue Cipro, Flagyl. Monitor for risk of C. difficile. Also requested C. difficile, so far and collected. Plan IRMA: IRMA resolved. Hyperbilirubinemia: Resolved. Reviewed bilirubin, normalized from 1.7 yesterday. Suspect possibly cholestasis secondary to dehydration. Hx of complicated diverticulitis with multiple intra-abdominal abscesses, previously undergoing abdominal washout, adhesiolysis, bowel resection in 2019, with Chronic diarrhea, Chronically draining abdominal wall seroma, Lliver cirrhosis, etiology unknown. She states was told previously that it was likely due to septic shock. Discussed with her unsure that this would be a common cause of cirrhosis. States she does not drink alcohol, previously noted occasional alcoholic beverages. Does appear to have metabolic syndrome. Discussed with her and her daughter's, to seek further follow-up with primary provider for further assessment of etiology of liver as well as follow-up on cirrhosis and possible related complications. HTN, monitor blood pressures, blood pressure currently soft, with nausea vomiting, dehydration, hold antihypertensives for now. PAD, continue statin COPD, DuoNebs, oxygen support as needed chronic smoker, she has been on Wellbutrin, but unclear how well she may be able to absorb the medication. Continue for now. Discussed smoking cessation with her for 4 minutes overall. She states she will let us know in case she will decide she wants nicotine replacement with patches and/or lozenges. Chronic back pain with radiculopathy, continue baclofen, amitriptyline, gabapentin DDD, Generalized anxiety, MDD, Other medical problems GERD: Resume PPI Attestations 2 Medical Necessity Statement*: Continue admission for assessment management of large bowel obstruction. and High MDM includes amount and/or complexity of data reviewed/ordered [ previous or external records, resulted lab(s)/test(s), ordered lab(s)/test(s) and other healthcare professional discussion] and described risk of complication, morbidity or mortality of management as documented Diagnoses Bowel obstruction S18.195
[2024-08-29 22:36] LABS: Procalcitonin 0.05 ng/mL (0-0.5)
[2024-08-29] MEDS: lidocaine 1% 5 ML in potassium chloride premix 100 ML 52.5 ML IV (23:11)
[2024-08-30] VITALS (7 sets, daily range): BP systolic 126–147; BP diastolic 77–92; PULSE 76–82; RESP 16–17; TEMP 36.4–36.8; O2SAT 90–94
[2024-08-30] MEDS: metroNIDAZOLE IV 500 MG/100 ML PREMIX 100 MG IV ×4 (02:55→20:15)
[2024-08-30] MEDS: sodium chloride 0.9% 1,000 ML 75 ML IV ×2 (02:55→20:20)
[2024-08-30 03:20] LABS: Basophils # 0.1 10^3/uL (0.0-0.1); Basophils % 0.5 %; Eosinophils # 0.2 10^3/uL (0.0-0.8); Eosinophils % 2.3 %; Hematocrit 48.4 % (36-47); Lymphocytes # 2.1 10^3/uL (0.8-4.8); Lymphocytes % 20.9 %; Mean Corpuscular HGB Conc 32.9 g/dL (30-55); Mean Corpuscular Hemoglobin 28.8 pg (27-33); Mean Corpuscular Volume 87.5 fl (85-98); Mean Platelet Volume 9.3 fL (7.4-10.4); Monocytes # 0.8 10^3/uL (0.2-0.9); Monocytes % 7.9 %; Neutrophils # 6.79 10^3/uL (1.8-7.7); Neutrophils % 67.5 %; Nucleated Red Blood Cells % 0 %; Platelet Count 180 10^3/cmm (157-399); Red Blood Count 5.53 10^6/uL (3.85-5.65); Red Cell Distribution Width 13.6 % (12.1-15.1); White Blood Count 10.05 10^3/uL (3.29-11.43)
[2024-08-30 03:45] LABS: Anion Gap 11.9 (5-19); Blood Urea Nitrogen 8 mg/dL (6-20); Calcium 7.8 mg/dL (8.5-10.5); Carbon Dioxide 29 mmol/L (22-29); Chloride 97 mmol/L (98-107); Creatinine Clr Calc Pharmacy 91.9317; Glomerular Filtration Rate 86.2 mL/min (90-130); Glucose 86 mg/dL (65-115); Osmolality Calculated 278 mOsm/kg (285-295); Sodium 135 mmol/L (136-145)
[2024-08-30 04:05] LABS: Potassium 2.9 mmol/L (3.5-5.1)
[2024-08-30] MEDS: lidocaine 1% 5 ML in potassium chloride premix 100 ML 52.5 ML IV ×2 (05:18→10:06)
[2024-08-30] MEDS: pantoprazole 40 mg SDV IVP ×2 (05:19→17:28)
[2024-08-30 09:55] LABS: Procalcitonin 0.05 ng/mL (0-0.5)
[2024-08-30] MEDS: ciprofloxacin 400 MG/200 ML PREMIX 200 MG IV ×2 (10:06→20:12)
[2024-08-30] MEDS: ALPRAZolam 0.5 mg Tablet 1 MG PO ×2 (12:10→20:19)
[2024-08-30] MEDS: buPROPion SR (12 HR) 150 mg Tablet PO (13:06)
[2024-08-30] MEDS: gabapentin 300 mg Capsule PO ×3 (13:07→20:20)
--- NOTE | 2024-08-30 13:12 | PC.NURSE ---
Mckayla with [facility] called for an update on the patient. Mckayla stated patient was accepted on the 08/27/24 but at this time a bed is not available, however if a bed becomes available today it would need to be a doctor to doctor update.
[2024-08-30] MEDS: potassium chloride ER 20 mEq Tablet PO ×2 (14:56→20:20)
[2024-08-30] MEDS: lanolin oint 7 gm 1 APPLIC TOPICAL (17:28)
[2024-08-30] MEDS: enoxaparin 40 mg/0.4 mL Syringe SUBCUT (20:11)
[2024-08-30] MEDS: amitriptyline 25 mg Tablet PO (20:20)
--- NOTE | 2024-08-30 21:45 | P.PN_ITS ---
Subjective 2 Subjective: Her condition overall she feels has so far improved, with decreasing abdominal distention. So far has been tolerating clear liquids. Vitals/I&O/Wt Last Vital Signs Temp 98.1 F 08/30/24 20:00 Pulse 82 08/30/24 20:00 Resp 16 08/30/24 20:00 BP 126/78 08/30/24 20:00 Pulse Ox 92 08/30/24 20:00 O2 Del Method Room Air 08/30/24 20:00 O2 Flow Rate 1 08/27/24 00:00 08/30/24 08/30/24 08/30/24 06:59 14:59 22:59 Intake Total 1023.75 / 4083.75 2430 / 2430 2360 / 4790 Balance 1023.75 / 4083.75 2430 / 2430 2360 / 4790 Weight last 48 hrs Weight 92.76 kg Weight 92.487 kg Weight 92.351 kg Physical Exam 2 Const: COMMON NORMALS: patient oriented x3 and alert GENERAL APPEARANCE: c ooperative ORIENTATION/CONSCIOUSNESS: Yes awake HENMT: COMMON NORMALS: oropharynx normal Neck/C-Spine: COMMON NORMALS: no JVD Resp: COMMON NORMALS: normal respiratory effort and clear to auscultation bilaterally AUSCULTATION: clear to auscultation bilaterally Cardio: COMMON NORMALS: no JVD, regular rhythm, S1 normal heart sound present, S2 normal heart sound present and No murmurs present (Cardio) RHYTHM: regular rhythm HEART SOUNDS: S1 normal heart sound present and S2 normal heart sound present GI: COMMON NORMALS: Soft to palpation INSPECTION: Yes abdominal distension PALPATION: Yes Soft to palpation and Yes Tenderness to palpation present (GI) Extremity: COMMON NORMALS: no joint enlargement and no pedal edema Neuro: COMMON NORMALS: patient oriented x3 and moves all extremities S ENSORIUM/ORIENTATION: Yes alert Skin: COMMON NORMALS: no rashes or lesions noted GENERAL SKIN EXAM: no rashes or lesions noted Data 08/30/24 02:13 08/30/24 02:13 A&P Assessment and plan (1) Bowel obstruction: So far with improving condition, with decreasing abdominal distention, has been passing flatus. So far tolerating clear liquids. With improving condition she is inquiring about discharge home. Discussed with her and discussed with the surgeon. As per surgery and my recommendation discussed consideration of options. Discussed pending transfer and need for imminent assessment by colorectal surgery due to high likelihood of recurrent obstruction with multiple recurrent obstructions in the past, likelihood of recurrent of severe obstruction, concern for need for urgent surgical intervention which cannot be performed safely here. If she worked choosing to go home now she may be delaying intervention and potentially coming across the above complication, risking potential severe undesirable outcome. However, this is certainly somewhat difficult to predict, and. There is a possibly she would tolerate clear liquid diet until further follow-up with colorectal surgery. But again potential risk may be severe. In case of leaving the hospital AGAINST MEDICAL ADVICE, and subsequent need to return to the hospital in case of recurrent obstruction, would not admit here, and needs direct transfer to tertiary center. Continue to pursue transfer continue conservative management here. Will currently discontinue IV fluid. Continue clear liquids as tolerating. Continue arrangements for transfer to tertiary care facility for further assessment and management. Reviewed vitals, CBC, BMP, procalcitonin. Will stop IV antibiotics. So far without stool available for C. difficile sample. With chronic diarrhea, with leukocytosis for now continues empirically on antibiotic. WBC normalized Discontinued antibiotics. Also requested C. difficile, so far and collected. Plan Hypokalemia: Requested replacement. Check magnesium. Recheck chemistry. IRMA: IRMA resolved. Hyperbilirubinemia: Resolved. Reviewed bilirubin, normalized from 1.7 yesterday. Suspect possibly cholestasis secondary to dehydration. Hx of complicated diverticulitis with multiple intra-abdominal abscesses, previously undergoing abdominal washout, adhesiolysis, bowel resection in 2019, with Chronic diarrhea, Chronically draining abdominal wall seroma, Lliver cirrhosis, etiology unknown. She states was told previously that it was likely due to septic shock. Discussed with her unsure that this would be a common cause of cirrhosis. States she does not drink alcohol, previously noted occasional alcoholic beverages. Does appear to have metabolic syndrome. Discussed with her and her daughter's, to seek further follow-up with primary provider for further assessment of etiology of liver as well as follow-up on cirrhosis and possible related complications. HTN, monitor blood pressures, blood pressure currently soft, with nausea vomiting, dehydration, hold antihypertensives for now. PAD, continue statin COPD, DuoNebs, oxygen support as needed chronic smoker, she has been on Wellbutrin, but unclear how well she may be able to absorb the medication. Continue for now. Discussed smoking cessation with her for 4 minutes overall. She states she will let us know in case she will decide she wants nicotine replacement with patches and/or lozenges. Chronic back pain with radiculopathy, continue baclofen, amitriptyline, gabapentin DDD, Generalized anxiety, MDD, Other medical problems GERD: Resume PPI Attestations 2 Medical Necessity Statement*: Continue admission for assessment management of large bowel obstruction. and High MDM includes amount and/or complexity of data reviewed/ordered [ resulted lab(s)/test(s), ordered lab(s)/test(s) and other healthcare professional discussion] as documented Diagnoses Bowel obstruction K56.609
[2024-08-31 04:00] VITALS: BP 140/79; PULSE 82; RESP 18; TEMP 36.7; O2SAT 92
[2024-08-31 04:43] LABS: Basophils # 0.1 10^3/uL (0.0-0.1); Basophils % 0.7 %; Eosinophils # 0.3 10^3/uL (0.0-0.8); Eosinophils % 2.5 %; Hematocrit 47.8 % (36-47); Lymphocytes # 2.7 10^3/uL (0.8-4.8); Lymphocytes % 25.6 %; Mean Corpuscular HGB Conc 31.8 g/dL (30-55); Mean Corpuscular Hemoglobin 28.1 pg (27-33); Mean Corpuscular Volume 88.4 fl (85-98); Mean Platelet Volume 9.4 fL (7.4-10.4); Monocytes # 0.9 10^3/uL (0.2-0.9); Monocytes % 8.4 %; Neutrophils # 6.44 10^3/uL (1.8-7.7); Neutrophils % 61.7 %; Nucleated Red Blood Cells % 0 %; Platelet Count 169 10^3/cmm (157-399); Red Blood Count 5.41 10^6/uL (3.85-5.65); Red Cell Distribution Width 13.8 % (12.1-15.1); White Blood Count 10.45 10^3/uL (3.29-11.43)
[2024-08-31 04:57] LABS: Magnesium 1.4 mg/dL (1.7-2.3)
[2024-08-31 05:07] LABS: Anion Gap 20.4 (5-19); Blood Urea Nitrogen 6 mg/dL (6-20); Carbon Dioxide 29 mmol/L (22-29); Chloride 93 mmol/L (98-107); Creatinine Clr Calc Pharmacy 71.5421; Glomerular Filtration Rate 64.5 mL/min (90-130); Glucose 73 mg/dL (65-115); Osmolality Calculated 284 mOsm/kg (285-295); Potassium 3.4 mmol/L (3.5-5.1); Sodium 139 mmol/L (136-145)
[2024-08-31] MEDS: pantoprazole 40 mg SDV IVP ×2 (05:58→20:56)
[2024-08-31] MEDS: buPROPion SR (12 HR) 150 mg Tablet PO (05:58)
[2024-08-31 08:00] VITALS: BP 152/91; PULSE 72; RESP 16; TEMP 36.5; O2SAT 94
[2024-08-31] MEDS: magnesium sulfate premix 4 GM/100 ML PREMIX IV (09:46)
[2024-08-31] MEDS: citalopram 20 mg Tablet 40 MG PO (09:47)
[2024-08-31] MEDS: gabapentin 300 mg Capsule PO ×3 (09:47→20:56)
[2024-08-31] MEDS: potassium chloride ER 20 mEq Tablet PO ×4 (09:47→20:56)
[2024-08-31] MEDS: ALPRAZolam 0.5 mg Tablet 1 MG PO ×2 (09:48→21:03)
[2024-08-31 11:28] VITALS: BP 149/91; PULSE 76; RESP 15; TEMP 36.5; O2SAT 95
[2024-08-31 15:08] VITALS: BP 141/78; PULSE 82; RESP 15; TEMP 36.5; O2SAT 96
--- NOTE | 2024-08-31 16:27 | P.PN_ITS ---
Subjective 2 Subjective: Passing gas, having BMs Less distended Feels better Vitals/I&O/Wt Last Vital Signs Temp 97.7 F 08/31/24 15:08 Pulse 82 08/31/24 15:08 Resp 15 08/31/24 15:08 BP 141/78 08/31/24 15:08 Pulse Ox 96 08/31/24 15:08 O2 Del Method Room Air 08/31/24 15:08 O2 Flow Rate 1 08/27/24 00:00 08/31/24 08/31/24 08/31/24 06:59 14:59 22:59 Intake Total 632.5 / 5422.5 2367.5 / 2367.5 Balance 632.5 / 5422.5 2367.5 / 2367.5 Weight last 48 hrs Weight 204 lb 1.6 oz Weight 204 lb 8 oz Physical Exam 2 Narrative: RRR unlabored breathing RA Abdomen soft, nt, nd Data 08/31/24 02:35 08/31/24 02:35 A&P Assessment and plan (1) Bowel obstruction: Plan 58 yo female who presented with smoldering diverticulitis and partial large bowel obstruction. Doing well with non op management. Ok for soft diet. Discussed with hospitalist. Attestations 2 Medical Necessity Statement*: NA Coding Level of Care Code 33584 Diagnoses Bowel obstruction K56.609 Time Spent (min) 30
[2024-08-31 20:00] VITALS: BP 141/85; PULSE 81; RESP 17; TEMP 36.7; O2SAT 90
[2024-08-31] MEDS: enoxaparin 40 mg/0.4 mL Syringe SUBCUT (20:56)
[2024-08-31] MEDS: amitriptyline 25 mg Tablet PO (20:56)
--- NOTE | 2024-08-31 22:39 | P.PN_ITS ---
Subjective 2 Subjective: She is overall feeling better. So far tolerating clear liquids without issues. Feels some rumbling bowel sounds. Vitals/I&O/Wt Last Vital Signs Temp 98.1 F 08/31/24 20:00 Pulse 81 08/31/24 20:00 Resp 17 08/31/24 20:00 BP 141/85 08/31/24 20:00 Pulse Ox 90 08/31/24 20:00 O2 Del Method Room Air 08/31/24 20:00 O2 Flow Rate 1 08/27/24 00:00 08/31/24 08/31/24 08/31/24 06:59 14:59 22:59 Intake Total 632.5 / 5422.5 2367.5 / 2367.5 835 / 3202.5 Balance 632.5 / 5422.5 2367.5 / 2367.5 835 / 3202.5 Weight last 48 hrs Weight 92.578 kg Weight 92.76 kg Physical Exam 2 Const: COMMON NORMALS: patient oriented x3 and alert GENERAL APPEARANCE: c ooperative ORIENTATION/CONSCIOUSNESS: Yes awake HENMT: COMMON NORMALS: oropharynx normal Neck/C-Spine: COMMON NORMALS: no JVD Resp: COMMON NORMALS: normal respiratory effort and clear to auscultation bilaterally AUSCULTATION: clear to auscultation bilaterally Cardio: COMMON NORMALS: no JVD, regular rhythm, S1 normal heart sound present, S2 normal heart sound present and No murmurs present (Cardio) RHYTHM: regular rhythm HEART SOUNDS: S1 normal heart sound present and S2 normal heart sound present GI: COMMON NORMALS: Soft to palpation INSPECTION: Yes abdominal distension PALPATION: Yes Soft to palpation and Yes Tenderness to palpation present (GI) Extremity: COMMON NORMALS: no joint enlargement and no pedal edema Neuro: COMMON NORMALS: patient oriented x3 and moves all extremities S ENSORIUM/ORIENTATION: Yes alert Skin: COMMON NORMALS: no rashes or lesions noted GENERAL SKIN EXAM: no rashes or lesions noted Data 08/31/24 02:35 08/31/24 02:35 Micro: Microbiology 08/26/24 20:22 Blood Culture - Final Blood NO GROWTH AFTER 5 DAYS 08/26/24 20:18 Blood Culture - Final Blood NO GROWTH AFTER 5 DAYS A&P Assessment and plan (1) Bowel obstruction: Reviewed vitals, CBC, BMP, magnesium. Noted significant hypomagnesemia, requested replacement. Discussed with the surgeon, per surgery okay to trial some GI soft diet. Monitor for any signs of free obstruction with elevated risk. Requested. Continue arrangements for transfer to [facility] for Pending transfer and need for imminent assessment by colorectal surgery due to high likelihood of recurrent obstruction with multiple recurrent obstructions in the past, likelihood of recurrent of severe obstruction, concern for need for urgent surgical intervention which cannot be performed safely here. If she worked choosing to go home now she may be delaying intervention and potentially coming across the above complication, risking potential severe undesirable outcome. However, this is certainly somewhat difficult to predict, and. There is a possibly she would tolerate clear liquid diet until further follow-up with colorectal surgery. But again potential risk may be severe. In case of leaving the hospital AGAINST MEDICAL ADVICE, and subsequent need to return to the hospital in case of recurrent obstruction, would not admit here, and needs direct transfer to tertiary center. Continue to pursue transfer continue conservative management here. Off IV fluid. So far without stool available for C. difficile sample. With chronic diarrhea, with leukocytosis for now continues empirically on antibiotic. WBC normalized Off antibiotics. Plan Hypokalemia: Requested replacement. Check magnesium. Recheck chemistry. IRMA: IRMA resolved. Hyperbilirubinemia: Resolved. Reviewed bilirubin, normalized from 1.7 yesterday. Suspect possibly cholestasis secondary to dehydration. Hx of complicated diverticulitis with multiple intra-abdominal abscesses, previously undergoing abdominal washout, adhesiolysis, bowel resection in 2019, with Chronic diarrhea, Chronically draining abdominal wall seroma, Lliver cirrhosis, etiology unknown. She states was told previously that it was likely due to septic shock. Discussed with her unsure that this would be a common cause of cirrhosis. States she does not drink alcohol, previously noted occasional alcoholic beverages. Does appear to have metabolic syndrome. Discussed with her and her daughter's, to seek further follow-up with primary provider for further assessment of etiology of liver as well as follow-up on cirrhosis and possible related complications. HTN, monitor blood pressures, blood pressure currently soft, with nausea vomiting, dehydration, hold antihypertensives for now. PAD, continue statin COPD, DuoNebs, oxygen support as needed chronic smoker, she has been on Wellbutrin, but unclear how well she may be able to absorb the medication. Continue for now. Discussed smoking cessation with her for 4 minutes overall. She states she will let us know in case she will decide she wants nicotine replacement with patches and/or lozenges. Chronic back pain with radiculopathy, continue baclofen, amitriptyline, gabapentin DDD, Generalized anxiety, MDD, Other medical problems GERD: Resume PPI Attestations 2 Medical Necessity Statement*: Continue admission for assessment management of large bowel obstruction. and High MDM includes amount and/or complexity of data reviewed/ordered [ resulted lab(s)/test(s), ordered lab(s)/test(s) and other healthcare professional discussion] as documented Diagnoses Bowel obstruction K56.609
[2024-09-01] VITALS: BP 118/60; PULSE 72; RESP 16; TEMP 36.7; O2SAT 91
[2024-09-01 04:00] VITALS: BP 137/86; PULSE 73; RESP 17; TEMP 36.7; O2SAT 96
[2024-09-01 05:33] LABS: Basophils # 0.1 10^3/uL (0.0-0.1); Basophils % 0.7 %; Eosinophils # 0.2 10^3/uL (0.0-0.8); Eosinophils % 2.4 %; Hematocrit 50.5 % (36-47); Lymphocytes # 2.7 10^3/uL (0.8-4.8); Lymphocytes % 26.7 %; Mean Corpuscular HGB Conc 32.1 g/dL (30-55); Mean Corpuscular Hemoglobin 28.2 pg (27-33); Mean Corpuscular Volume 87.8 fl (85-98); Monocytes # 0.8 10^3/uL (0.2-0.9); Monocytes % 8.3 %; Neutrophils # 6.08 10^3/uL (1.8-7.7); Neutrophils % 60.8 %; Nucleated Red Blood Cells % 0 %; Platelet Count 180 10^3/cmm (157-399); Red Blood Count 5.75 10^6/uL (3.85-5.65)
[2024-09-01 05:55] LABS: Anion Gap 14.3 (5-19); Blood Urea Nitrogen 4 mg/dL (6-20); Calcium 8.2 mg/dL (8.5-10.5); Carbon Dioxide 25 mmol/L (22-29); Chloride 99 mmol/L (98-107); Creatinine Clr Calc Pharmacy 79.5294; Glomerular Filtration Rate 73.9 mL/min (90-130); Glucose 100 mg/dL (65-115); Magnesium 1.9 mg/dL (1.7-2.3); Osmolality Calculated 277 mOsm/kg (285-295); Potassium 3.3 mmol/L (3.5-5.1); Sodium 135 mmol/L (136-145)
[2024-09-01] MEDS: buPROPion SR (12 HR) 150 mg Tablet PO (06:00)
[2024-09-01 07:13] VITALS: BP 127/87; PULSE 70; RESP 15; TEMP 36.5; O2SAT 95
[2024-09-01] MEDS: citalopram 20 mg Tablet 40 MG PO (08:09)
[2024-09-01] MEDS: gabapentin 300 mg Capsule PO (08:09)
[2024-09-01] MEDS: potassium chloride ER 20 mEq Tablet PO (08:10)
[2024-09-01] MEDS: pantoprazole 40 mg SDV IVP (08:34)
--- NOTE | 2024-09-01 11:28 | P.PN_ITS ---
Subjective 2 Subjective: Tolerating regular diet Passing gas, having bowel movements No abdominal pain Vitals/I&O/Wt Last Vital Signs Temp 97.7 F 09/01/24 07:13 Pulse 70 09/01/24 07:13 Resp 15 09/01/24 07:13 BP 127/87 09/01/24 07:13 Pulse Ox 95 09/01/24 07:13 O2 Del Method Room Air 09/01/24 07:13 O2 Flow Rate 1 08/27/24 00:00 08/31/24 09/01/24 09/01/24 22:59 06:59 14:59 Intake Total 835 / 3202.5 240 / 240 Balance 835 / 3202.5 240 / 240 Weight last 48 hrs Weight 199 lb 12.8 oz Weight 204 lb 1.6 oz Physical Exam 2 Narrative: Chest: Unlabored breathing room air. No lymphadenopathy. Heart: Regular rate and rhythm. Abdomen: Soft, nontender, nondistended. No masses or lymphadenopathy. Data 09/01/24 04:37 09/01/24 04:37 Micro: Microbiology 08/26/24 20:22 Blood Culture - Final Blood NO GROWTH AFTER 5 DAYS 08/26/24 20:18 Blood Culture - Final Blood NO GROWTH AFTER 5 DAYS A&P Assessment and plan (1) Bowel obstruction: Plan 58-year-old female who presented with a partial large bowel obstruction secondary to smoldering diverticulitis. Tolerating regular diet and having bowel function. Patient can be discharged and she can follow-up as outpatient with colorectal surgeon in [place]. If the obstruction recurs she should be transferred from the ED directly to [place] given her high level of complexity. Discussed with patient and hospitalist. Attestations 2 Medical Necessity Statement*: N/A Coding Level of Care Code 07048 Diagnoses Bowel obstruction K56.609 Time Spent (min) 30
--- NOTE | 2024-09-01 12:02 | PM.DCS ---
Discharge Providers Date of Admission: 08/26/24 17:05 Date of Discharge: September 01, 2024 Attending Provider at Admission: Flakito Rose Attending Provider at Discharge: Navi Desir MD Primary Care Provider: Farhat Mejias MD Diagnoses at Discharge Discharge Diagnosis (1) Bowel obstruction: Status: Acute Reason for Visit Reason for Visit: N/V x 6 days Brief History: History as per HPI: 58-year-old lady with history of diverticulitis, history of complicated diverticulitis with multiple intra-abdominal abscesses, previously undergoing abdominal washout, adhesiolysis, bowel resection in 2019, with chronic diarrhea, additionally with complication with chronically draining abdominal wall seroma, with medical history also including liver cirrhosis, HTN, PAD, COPD, chronic smoker, chronic back pain with radiculopathy, DDD, generalized anxiety, MDD, other medical problems came to ER for evaluation due to abdominal pain, nausea and vomiting for about the last 6 days. She had a small bowel movement yesterday today. Passed minimal flatus. Has had nausea, abdominal pain and a lot of belching. Not tolerating food or drink. Took laxatives at home without any improvement. CT abdomen pelvis obtained in ER showed fluid-filled distended majority of the colon as well as diffusely fluid-filled small bowel. With finding of apparent transition point in the distal descending colon/proximal sigmoid colon, underdistended through the rectum. An underlying stricture or mass in this region not excluded. In enteritis is also a consideration. Additional incidental fluid-filled collection identified in the anterior abdominal wall near the periumbilical region measuring 6.3 x 1.7 cm, which could reflect a seroma or old hematoma from prior incision site. Incidentally noted cirrhotic liver. Her condition and findings were discussed by ER physician with the surgeon on-call, with subsequent call and request for hospitalization to hospitalist. As per surgery recommendation NG tube placement was attempted but not successful in ER and she was started on IV fluids. Patient and her daughter are additionally concerned with regards to infection stating that her presentation is very similar to prior presentation before she became severely ill. They are very concerned about leukocytosis. She and her daughter considered transfer to outside facility, however, decided against this, decided to pursue admission here. She denies any history of C. difficile infection. Hospital Course Hospital Course Patient was admitted to the hospital for further evaluation and management of small bowel obstruction. She was started on conservative treatment with IV hydration. Patient did not tolerate NG tube placement. Surgery was consulted. There were concerns for possible sigmoid colon stenosis versus tumor for which patient was scheduled for colonoscopy but she did not tolerate bowel prep. Surgery recommended patient to be transferred to tertiary center for further evaluation and management. [facility] has been [facility]. While awaiting bed for over last 4 days patient continued to gradually improve. She has been having soft bowel movements. Is able to tolerate mechanical soft diet without nausea or vomiting. Surgery recommended patient to be discharged with advised to follow-up with surgical team as an outpatient at a tertiary hospital in [place]. She has been discharged in hemodynamically stable condition was advised to continue with mechanical soft diet with multiple small meals. If she have nausea she has been advised to transition back to liquid diet. She will follow-up with surgical team as [facility] as an outpatient. Physical Exam Narrative: Accompanied by her daughter on second visit. Const: COMMON NORMALS: patient oriented x3 and alert GENERAL APPEARANCE: cooperative ORIENTATION/CONSCIOUSNESS: Yes awake HENMT: COMMON NORMALS: oropharynx normal Neck/C-Spine: COMMON NORMALS: no JVD Resp: COMMON NORMALS: normal respiratory effort and clear to auscultation bilaterally AUSCULTATION: clear to auscultation bilaterally Cardio: COMMON NORMALS: no JVD, regular rhythm, S1 normal heart sound present, S2 normal heart sound present and No murmurs present (Cardio) RHYTHM: regular rhythm HEART SOUNDS: S1 normal heart sound present and S2 normal heart sound present GI: COMMON NORMALS: Soft to palpation INSPECTION: Yes abdominal distension PALPATION: Yes Soft to palpation and Yes Tenderness to palpation present (GI) Extremity: COMMON NORMALS: no joint enlargement and no pedal edema Neuro: COMMON NORMALS: patient oriented x3 and moves all extremities SENSORIUM/ORIENTATION: Yes alert Skin: COMMON NORMALS: no rashes or lesions noted GENERAL SKIN EXAM: no rashes or lesions noted Discharge Data Studies Completed and Pending Completed Studies During Hospitalization Category Date Time Status CT abdomen pelvis w con* [id number] Stat Cat Scan 08/26/24 12:03 Completed XR chest 1V portable [id number] Stat Exams 08/26/24 17:58 Completed Pending at discharge Category Date Time Status C.Diff PCR (Lab) Routine Lab 08/26/24 20:40 Uncollected Stool Culture - Enteric [Salmonella / Shigella / Campy] Lab 08/26/24 20:40 Ordered Routine Radiology Impressions Abdomen/Pelvis CT 08/26/24 12:03 IMPRESSION: 1. Fluid-filled distension of the majority of the colon as well as diffusely fluid-filled small bowel. There appears to be a transition point at the distal descending colon/proximal sigmoid colon which is under distended through the rectum. An underlying stricture or mass in this region is not excluded. An enteritis is also a consideration. 2. There is a fluid collection along the anterior abdominal wall near the periumbilical region measuring 6.3 x 1.7 cm. This could reflect a seroma or old hematoma from prior incision site. 3. Cirrhotic liver. Chest X-Ray 08/26/24 17:58 IMPRESSION: NG tube in proper positioning. Laboratory Results WBC 10.00 10^3/uL (3.29-11.43) 09/01/24 04:37 RBC 5.75 10^6/uL (3.85-5.65) H 09/01/24 04:37 Hgb 16.20 g/dL (11.27-16.99) 09/01/24 04:37 Hct 50.5 % (36-47) H 09/01/24 04:37 MCV 87.8 fl (85-98) 09/01/24 04:37 MCH 28.2 pg (27-33) 09/01/24 04:37 MCHC 32.1 g/dL (30-55) 09/01/24 04:37 RDW 14.0 % (12.1-15.1) 09/01/24 04:37 Plt Count 180 10^3/cmm (157-399) 09/01/24 04:37 MPV 9.0 fL (7.4-10.4) 09/01/24 04:37 Neut % (Auto) 60.8 % 09/01/24 04:37 Lymph % (Auto) 26.7 % 09/01/24 04:37 [place] % (Auto) 8.3 % 09/01/24 04:37 Eos % (Auto) 2.4 % 09/01/24 04:37 Baso % (Auto) 0.7 % 09/01/24 04:37 Neut # (Auto) 6.08 10^3/uL (1.8-7.7) 09/01/24 04:37 Lymph # (Auto) 2.7 10^3/uL (0.8-4.8) 09/01/24 04:37 [place] # (Auto) 0.8 10^3/uL (0.2-0.9) 09/01/24 04:37 Eos # (Auto) 0.2 10^3/uL (0.0-0.8) 09/01/24 04:37 Baso # (Auto) 0.1 10^3/uL (0.0-0.1) 09/01/24 04:37 Nucleated RBC % (auto) 0 % 09/01/24 04:37 Nucleated RBCs # 0.0 /100WBC 09/01/24 04:37 Sodium 135 mmol/L (136-145) L 09/01/24 04:37 Potassium 3.3 mmol/L (3.5-5.1) L 09/01/24 04:37 Chloride 99 mmol/L (98-107) 09/01/24 04:37 Carbon Dioxide 25 mmol/L (22-29) 09/01/24 04:37 Anion Gap 14.3 (5-19) 09/01/24 04:37 BUN 4 mg/dL (6-20) L 09/01/24 04:37 Creatinine 0.8 mg/dL (0.5-0.9) 09/01/24 04:37 GFR Calculation 73.9 mL/min (90-130) L 09/01/24 04:37 Glucose 100 mg/dL (65-115) 09/01/24 04:37 Calculated Osmolality 277 mOsm/kg (285-295) L 09/01/24 04:37 Lactic Acid 2.1 mmol/L (0.5-2.2) 08/26/24 11:45 Lactic Acid (Sepsis) 2.1 mmol/L (0.5-2.2) 08/26/24 14:40 Calcium 8.2 mg/dL (8.5-10.5) L 09/01/24 04:37 Magnesium 1.9 mg/dL (1.7-2.3) 09/01/24 04:37 Total Bilirubin 0.9 mg/dL (0.15-1.2) 08/29/24 04:06 AST 12 U/L (0-32) 08/29/24 04:06 ALT 6 U/L (0-33) 08/29/24 04:06 Alkaline Phosphatase 94 U/L (35-105) 08/29/24 04:06 C-Reactive Protein 41.9 mg/L (0.0-4.9) H 08/26/24 11:45 Total Protein 6.2 g/dL (6.6-8.7) L 08/29/24 04:06 Albumin 2.8 g/dL (3.5-5.2) L 08/29/24 04:06 Globulin 3.4 g/dL (1.3-4.6) 08/29/24 04:06 Lipase 26 U/L (13-60) 08/26/24 11:45 Procalcitonin 0.05 ng/mL (0-0.5) 08/30/24 02:13 Urine Color Yellow (Yellow) 08/26/24 14:00 Urine Appearance Clear (CLEAR) 08/26/24 14:00 Urine pH 6.5 (5-7) 08/26/24 14:00 Ur Specific Jeff 1.016 (1.005-1.030) 08/26/24 14:00 Urine Protein Negative (Negative) 08/26/24 14:00 Urine Glucose (UA) Negative (Normal) 08/26/24 14:00 Urine Ketones Negative (Negative) 08/26/24 14:00 Urine Blood Negative (Negative) 08/26/24 14:00 Urine Nitrate Negative (Negative) 08/26/24 14:00 Urine Bilirubin Negative (Negative) 08/26/24 14:00 Urine Urobilinogen 0.2 mg/dL (Negative) 08/26/24 14:00 Ur Leukocyte Esterase Negative (Negative) 08/26/24 14:00 Urine RBC 0-2 /hpf (0-2) 08/26/24 14:00 Urine WBC 0-5 /hpf (0-5) 08/26/24 14:00 Ur Squamous Epith Cells 0-5 /hpf (0-5) 08/26/24 14:00 Amorphous Sediment Not Reportable 08/26/24 14:00 Urine Bacteria None seen /hpf (NONE) 08/26/24 14:00 Hyaline Casts 3.71 /lpf 08/26/24 14:00 Vitals Last Vital Signs Temp 97.7 F 09/01/24 07:13 Pulse 70 09/01/24 07:13 Resp 15 09/01/24 07:13 BP 127/87 09/01/24 07:13 Pulse Ox 95 09/01/24 07:13 O2 Del Method Room Air 09/01/24 07:13 O2 Flow Rate 1 08/27/24 00:00 Discharge Plan Discharge Patient Disposition: Home Condition: Stable Prescriptions: Continued guaifenesin [Mucinex] 600 mg tablet extended release 12hr 600 mg PO Q12H PRN (Reason: Cough) citalopram [Celexa] 40 mg tablet 40 mg PO .morning Qty: 90 2RF Hold Instructions: Resume on 04/07/21. Rx Instructions: Take one tablet every morning gabapentin 300 mg capsule 300 mg PO TID Qty: 270 2RF Hold Instructions: Resume on 11/24/21. Rx Instructions: Take one capsule three times per day atorvastatin 10 mg tablet 10 mg PO DAILY Qty: 90 1RF valsartan 80 mg tablet 80 mg PO DAILY@09 Qty: 90 1RF Hold Instructions: Resume on 11/29/21. pantoprazole [Protonix] 40 mg tablet,delayed release (DR/EC) 40 mg PO BID Qty: 90 0RF amitriptyline 25 mg tablet 25 mg PO BEDTIME Qty: 90 2RF Rx Instructions: Take one tablet at bedtime bupropion HCl [Wellbutrin SR] 150 mg tablet sustained-release 12 hr 150 mg PO QAM Qty: 30 3RF Rx Instructions: Take one tablet every morning, set a target date within 2 weeks of starting for nicotine cessation. baclofen 10 mg tablet See Rx Instructions .ROUTE .COMPLEX Qty: 90 1RF Dose Instruction: TAKE 1 TABLET BY MOUTH THREE TIMES DAILY FOR SPASMS Rx Instructions: TAKE 1 TABLET BY MOUTH THREE TIMES DAILY FOR SPASMS alprazolam 1 mg tablet 1 mg PO TID PRN (Reason: anxiety) Qty: 90 0RF acetaminophen 500 mg Tablet 500 mg PO Q6H PRN (Reason: Pain) Changed potassium chloride [Klor-Con M20] 20 mEq tablet,ER particles/crystals 20 meq PO BID Qty: 270 1RF Discontinued hydrochlorothiazide 50 mg tablet 50 mg PO DAILY Rx Instructions: Take 1 tablet by mouth once daily Discharge Orders: Discharge Order (Routine); Ordered 09/01/24 Ordered By: Navi Desir Referrals: Farhat Mejias MD [Primary Care Provider] - 4-7 days (We have notified your physician's clinic of the need for a follow-up appointment to be scheduled. If you have not heard from them within the next 2 business days, please call them directly. ) Discharge Diet: As Directed Discharge Activity: Resume usual activity and Increase activity as tolerated Patient Instructions: Acute Nausea and Vomiting (DC), Bowel Obstruction (DC), Opioid Safety Activity Restrictions/Additional Instructions: Continue with mechanical soft diet for next couple of weeks. Take multiple small meals. If you start having concerns with nausea, abdominal pain you should cut back to full liquid diet. Take [id number] stool softeners daily to the time you have 1-2 soft bowel movements. Follow-up with surgeon at [place] at the earliest. Goal blood pressure of less than 140/90 mmHg. Hold off on taking hydrochlorothiazide for now. Follow-up with a primary care provider within next 1 week for further adjustment of antihypertensive as needed. Discharge Attestations Time Spent in Discharge Care*: greater than 30 min Specific Discharge Activities: educating patient, discussing with pcp/other providers, discussing with immigration case manager/social workers/dc planners, documenting/other paperwork and evaluating patient/reviewing data Status at Discharge: Cognitive status at discharge: cognitively intact, Behavioral status at discharge: cooperative, Functional status at discharge: independent ambulation, Overall status at discharge: patient is progressing back to baseline Quality Metrics Clinical Quality Measures [ No reported AMI, CVA or VTE this stay] Coding Level of Care Code 13875 Total time (in minutes) for Discharge: 60 Diagnoses Bowel obstruction K56.609
--- NOTE | 2024-09-01 12:09 | PC.SOCIAL ---
IMM Update pg 2 of IMM Updated and reviewed w/ patient. Copy provided and copy dated, initialed and placed in chart.
[2024-09-01 12:19] VITALS: BP 134/95; PULSE 89; RESP 15; TEMP 36.7; O2SAT 94
[2024-09-01] MEDS: ALPRAZolam 0.5 mg Tablet 1 MG PO (12:58)
[2024-09-01 14:28] VITALS: BP 134/90; PULSE 86; RESP 16; TEMP 36.7; O2SAT 94
== END 2024-09-01 13:05 | disposition home or self-care (01) | DRG 389 ==
LOC: ER 14:14 → MEDSURG 17:06
PROVIDERS: Admitting Provider Internal Medicine; Emergency Provider Emergency Medicine; PCP Family Medicine; Visit Provider Student in an Organized Health Care Education/Training Program
DX: K56.600 Partial intestinal obstruction, unspecified as to cause (principal); F33.2 Major depressive disorder, recurrent severe without psychotic features; N17.9 Acute kidney failure, unspecified; K57.32 Diverticulitis of large intestine without perforation or abscess without bleeding; K52.9 Noninfective gastroenteritis and colitis, unspecified; K74.60 Unspecified cirrhosis of liver; I10 Essential (primary) hypertension; I73.9 Peripheral vascular disease, unspecified; J44.9 Chronic obstructive pulmonary disease, unspecified; F17.210 Nicotine dependence, cigarettes, uncomplicated; G89.29 Other chronic pain; M54.17 Radiculopathy, lumbosacral region; F41.1 Generalized anxiety disorder; E78.5 Hyperlipidemia, unspecified; K21.9 Gastro-esophageal reflux disease without esophagitis; Z87.01 Personal history of pneumonia (recurrent); Z86.018 Personal history of other benign neoplasm; Z90.710 Acquired absence of both cervix and uterus; Z90.722 Acquired absence of ovaries, bilateral; K56.690 Other partial intestinal obstruction; K57.30 Diverticulosis of large intestine without perforation or abscess without bleeding
CPT/HCPCS: 36415; 71045; 74177; 80048; 80053; 81001; 83605; 83690; 83735; 84145; 85025; 86140; 87040; 96361; 96372; 96374; 96375; 99232; 99233; 99254; 99285; J0744; J1200; J1650; J2060; J2405; J2470; J2919; J3475; J3480; J3490; J7030

== ENCOUNTER → 2024-09-11 18:46 | Outpatient (BNVA) | payer MEDICARE, MEDICAID, SELFPAY | PROVIDERS: PCP Family Medicine; Visit Provider Emergency Medicine | DX: J02.9 Acute pharyngitis, unspecified (principal) | CPT/HCPCS: 87071; 87880 ==

== ENCOUNTER 2024-11-05 12:26 | Outpatient (CLI) | payer MEDICARE, MEDICAID, SELFPAY ==
--- NOTE | 2024-11-05 12:30 | CTR_ITS ---
PROCEDURE INFORMATION: Exam: CTA Abdominal Aorta and Bilateral Lower Extremities (Run-off) With Contrast Exam date and time: 11/05/2024 12:34 PM Age: 59 years old Clinical indication: Other: Bilat leg pain; Prior surgery; Surgery date: 6+ months; Surgery type: Hyst, gb, colon x 3, appy; Aortic stenosis and pad TECHNIQUE: Imaging protocol: Computed tomographic angiography of the of the abdominal aorta, pelvis and bilateral lower extremities with contrast. 3D rendering (Not supervised by radiologist): MIP and/or 3D reconstructed images were created by the technologist. Radiation optimization: All CT scans at this facility use at least one of these dose optimization techniques: automated exposure control; mA and/or kV adjustment per patient size (includes targeted exams where dose is matched to clinical indication); or iterative reconstruction. Contrast material: OMNIPAQUE 350; Contrast volume: 125 ml; Contrast route: INTRAVENOUS (IV); COMPARISON: CT of the abdomen and pelvis with contrast August 26, 2024 at 1:49 p.m. RADIATION DOSE METRICS: Total DLP (mGy-cm): 1598.53 FINDINGS: Aorta: Large amount of aortic wall plaque. This does not cause hemodynamically significant stenosis. No aortic dissection or aneurysm. Otherwise, unremarkable. Celiac trunk and mesenteric arteries: No occlusion or significant stenosis. Renal arteries: No occlusion or significant stenosis. Right iliac arteries: Unremarkable right common and external iliac arteries. Unchanged 50-69% diameter stenosis right internal iliac artery. Right femoral/popliteal arteries: Unremarkable right common and deep femoral arteries. Multiple at least 50-69% diameter probably chronic stenoses throughout the patent right superficial femoral artery. Unremarkable right popliteal artery. Right infrapopliteal arteries: No occlusion or significant stenosis. Left iliac arteries: Greater than 70% diameter stenosis proximal left common iliac artery. Otherwise, unremarkable left common iliac artery. 50-69% diameter stenosis proximal left external iliac artery. Otherwise, unremarkable left external iliac artery. Greater than 70% diameter narrowing left internal iliac artery. All unchanged. Left femoral/popliteal arteries: Unremarkable left common and deep femoral arteries. Several at least 50-69% diameter probably chronic stenoses throughout the patent left superficial femoral artery. Unremarkable left popliteal artery. Left infrapopliteal arteries: No occlusion or significant stenosis. Heart: Unchanged moderate cardiomegaly. Liver: Unchanged cirrhotic liver. Gallbladder and biliary ducts: Unchanged cholecystectomy. Unchanged, unremarkable post cholecystectomy bile ducts. Pancreas: Unremarkable. No mass. No ductal dilation. Spleen: Normal. No splenomegaly. Adrenal glands: Normal. No mass. Kidneys and ureters: Unchanged tiny right renal cyst needs no follow-up. Otherwise, unremarkable. Stomach and bowel: Increased diffuse gastric wall thickening. Probably gastritis. However, upper endoscopy is recommended to exclude gastric neoplasm. Again noted are diverticula from the colon. No acute diverticulitis. Circumferential wall thickening proximal sigmoid colon is not obviously changed. A few mildly dilated mid small bowel loops with air-fluid levels in the anterior lower abdomen. These are not thick walled. This may be focal adynamic ileus or enteritis. A developing small bowel obstruction is possible, but considered much less likely. Please correlate clinically. Appendix: Appendectomy. Urinary bladder: Unremarkable. No mass. Reproductive: Unchanged hysterectomy. Otherwise, unremarkable. Intraperitoneal space: New 4 cm x 1.5 cm x 1 cm heterogeneous right lower quadrant mesenteric density. Uncertain etiology. Possibly lymphadenopathy. Possible inflammatory fluid. Possible neoplasm, but this is considered much less likely. Lymph nodes: No other lymphadenopathy. Bones/joints: Minimal and mild multilevel spondylosis. Otherwise, unremarkable. Soft tissues: Persistent old anterior body wall wound. Otherwise, unremarkable visualized body wall. Otherwise, unremarkable soft tissues. CT/CT angio abd aorta runof [id number] IMPRESSION: 1. Several hemodynamically significant arterial stenoses detailed above are believed to be chronic. 2. No other significant arterial pathology. 3. New 4 cm x 1.5 cm x 1 cm heterogeneous right lower quadrant mesenteric density. Uncertain etiology. Possibly lymphadenopathy. Possible inflammatory fluid. Possible neoplasm, but this is considered much less likely. 4. Increased diffuse gastric wall thickening. Probably gastritis. However, upper endoscopy is recommended to exclude gastric neoplasm. 5. Circumferential wall thickening proximal sigmoid colon is not obviously changed. Please correlate with colonoscopy to evaluate for colon cancer if this has not been recently done. 6. A few mildly dilated mid small bowel loops with air-fluid levels in the anterior lower abdomen. These are not thick walled. This may be focal adynamic ileus or enteritis. A developing small bowel obstruction is possible, but considered much less likely. Please correlate clinically. 7. Additional details as above.
[2024-11-05] MEDS: iohexol 350 mg/mL 500 mL Btl (per mL) IV (13:05)
== END 2024-11-05 12:27 | disposition home or self-care (01) ==
PROVIDERS: PCP Family Medicine; Visit Provider Family Medicine
DX: I70.291 Other atherosclerosis of native arteries of extremities, right leg (principal); I70.292 Other atherosclerosis of native arteries of extremities, left leg; Z98.890 Other specified postprocedural states; I70.0 Atherosclerosis of aorta; I51.7 Cardiomegaly; R93.2 Abnormal findings on diagnostic imaging of liver and biliary tract; Z90.49 Acquired absence of other specified parts of digestive tract; R93.3 Abnormal findings on diagnostic imaging of other parts of digestive tract; K57.30 Diverticulosis of large intestine without perforation or abscess without bleeding; R93.89 Abnormal findings on diagnostic imaging of other specified body structures; M47.9 Spondylosis, unspecified; Z90.710 Acquired absence of both cervix and uterus
CPT/HCPCS: 75635

== ENCOUNTER → 2024-11-24 14:41 | Outpatient (BNVA) | payer MEDICARE, MEDICAID, SELFPAY | PROVIDERS: PCP Family Medicine; Referring Provider Family Medicine; Visit Provider Student in an Organized Health Care Education/Training Program | DX: K29.70 Gastritis, unspecified, without bleeding (principal); K57.92 Diverticulitis of intestine, part unspecified, without perforation or abscess without bleeding; K56.609 Unspecified intestinal obstruction, unspecified as to partial versus complete obstruction | CPT/HCPCS: 99214 ==

== ENCOUNTER 2024-11-26 21:47 | Emergency (ER) | payer MEDICARE, MEDICAID, SELFPAY ==
[2024-11-26 21:47] VITALS: BP 193/122; PULSE 89; RESP 18; TEMP 36.6; O2SAT 99; BMI 39.0
--- NOTE | 2024-11-26 21:50 | XRR_ITS ---
PROCEDURE INFORMATION: Exam: XR Abdomen Exam date and time: 11/26/2024 9:57 PM Age: 59 years old Clinical indication: Abdominal pain; Generalized; Additional info: Abd pain TECHNIQUE: Imaging protocol: Radiologic exam of the abdomen. Views: Frontal supine view of the abdomen. 1 View. COMPARISON: CT abdomen pelvis w con* [id number] 08/26/2024 1:45 PM FINDINGS: Gastrointestinal tract: There is moderate gas and large volume fecal debris throughout colon. No small bowel dilation appreciated. No abnormal calcifications are seen but penetration is suboptimal. Intraperitoneal space: Right upper quadrant surgical clips are compatible with prior cholecystectomy. Bones/joints: Unremarkable. XR/XR abdomen 1V* [id number] IMPRESSION: Bowel gas pattern suggests constipation. No features of small bowel obstruction. It is difficult to exclude free air without upright view.
--- NOTE | 2024-11-26 21:50 | XRR_ITS ---
PROCEDURE INFORMATION: Exam: XR Chest Exam date and time: 11/26/2024 9:57 PM Age: 59 years old Clinical indication: Pain; Chest pressure; Additional info: Abdominal pain TECHNIQUE: Imaging protocol: Radiologic exam of the chest. Views: 1 view. COMPARISON: CR XR chest 1V portable [id number] 08/26/2024 5:59 PM FINDINGS: Lungs: Clear, symmetrically inflated lungs. Pleural spaces: No pleural effusion. No pneumothorax. Heart/Mediastinum: Heart is enlarged. Prominent left hilus is unchanged from prior. Bones/joints: Age appropriate. Intraperitoneal space: No free air under the diaphragm. XR/XR chest 1V portable [id number] IMPRESSION: Stable mild cardiomegaly. No airspace disease.
--- NOTE | 2024-11-26 21:55 | W.ED.ABDPA2 ---
HPI - Abdominal Pain General: Chief Complaint: Abdominal Pain Stated Complaint: n/v Time Seen by Provider: 11/26/24 21:48 History of Present Illness: 59-year-old female with a history of peripheral vascular disease, hyperlipidemia, hypertension, cirrhosis, COPD, and a history of bowel perforation in the past who presents emergency room with abdominal pain, nausea and vomiting. She says she has not had A bowel movement in 3 days. She is hypertensive on presentation. She is tender in her central upper abdomen. Related Data Home Medications ?Medication ?Instructions ?Recorded ?Confirmed guaifenesin 600 mg tablet, 600 mg PO Q12H PRN Cough 12/21/22 11/24/24 extended release 12 hr (Mucinex) acetaminophen 500 mg tablet 500 mg PO Q6H PRN Pain 08/26/24 11/24/24 Previous Rx's ?Medication ?Instructions ?Recorded atorvastatin 10 mg tablet 10 mg PO DAILY #90 tabs 09/19/23 valsartan 80 mg tablet 80 mg PO DAILY@09 #90 tabs 09/19/23 citalopram 40 mg tablet (Celexa) 40 mg PO .morning #90 tabs 05/05/24 gabapentin 300 mg capsule 300 mg PO TID #270 caps 05/05/24 amitriptyline 25 mg tablet 25 mg PO BEDTIME #90 tabs 07/01/24 bupropion HCl 150 mg tablet,12 hr 150 mg PO QAM #30 tabs 07/16/24 sustained-release (Wellbutrin SR) potassium chloride 20 mEq 20 meq PO BID #270 tabs 09/01/24 tablet,extended release(part/cryst) (Klor-Con M) docusate sodium 100 mg capsule 100 mg PO DAILY PRN constipation 09/05/24 #10 caps alprazolam 1 mg tablet 1 mg PO TID PRN anxiety #90 tabs 09/08/24 baclofen 10 mg tablet See Rx Instructions .Route 10/02/24 .COMPLEX #90 tabs pantoprazole 40 mg tablet,delayed 40 mg PO BID #90 tabs 10/09/24 release (Protonix) diphenhydramine HCl 50 mg tablet 50 mg PO ONCE PRN allergy symptoms 11/04/24 (Benadryl Allergy) #1 tab minocycline 100 mg capsule 100 mg PO DAILY #7 caps 11/18/24 prednisone 20 mg tablet 40 mg (2 x 20 mg) PO DAILY 5 days 11/18/24 #10 tabs sucralfate 100 mg/mL oral 10 ml PO BID 2 weeks #280 mL 11/24/24 suspension glycerin (child) 1 supp MT DAILY PRN constipation 11/27/24 #12 ea magnesium citrate 296 ml PO ONCE #296 mL 11/27/24 polyethylene glycol 3350 17 17 g PO DAILY #510 grams 11/27/24 gram/dose oral powder (Miralax) Allergies Allergy/AdvReac Type Severity Reaction Status Date / Time amoxicillin Allergy Severe ALGY-Rash Verified 11/26/24 21:54 codeine Allergy Unknown rash, Verified 11/26/24 21:54 itching Penicillins Allergy Unknown rash, Verified 11/26/24 21:54 itching Sulfa (Sulfonamide Allergy Unknown rash, Verified 11/26/24 21:54 Antibiotics) itching Iodinated Contrast Media Allergy Unknown Verified 11/26/24 21:54 Review of Systems Narrative: Constitutional symptoms: Negative except as documented in HPI. Skin symptoms: Negative except as documented in HPI. Eye symptoms: Negative except as documented in HPI. ENMT symptoms: Negative except as documented in HPI. Respiratory symptoms: Negative except as documented in HPI. Cardiovascular symptoms: Negative except as documented in HPI. Gastrointestinal symptoms: Negative except as documented in HPI. Genitourinary symptoms: Negative except as documented in HPI. Musculoskeletal symptoms: Negative except as documented in HPI. Neurologic symptoms: Negative except as documented in HPI. Psychiatric symptoms: Negative except as documented in HPI. Endocrine symptoms: Negative except as documented in HPI. 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, degenerative, lumbar spine Intervertebral disc disorder with radiculopathy of lumbosacral region Surgical History Hx of colonoscopy with polypectomy History of esophagogastroduodenoscopy (EGD) H/O drainage of abscess (~12/13/20) Intra-abdominal H/O exploratory laparotomy drainage of intra abdominal abscess Status post exploratory laparotomy H/O of hysterectomy with bilateral oophorectomy Family History Mother Congestive heart failure (CHF) Cancer mother Other Chronic kidney disease (CKD) Hypertension Lung disease Stroke Denies family history of Diabetes Clotting disorder Dementia Hyperlipidemia Psychiatric illness Anesthesia complication Bleeding disorder Social History Smoking and tobacco/nicotine status: current every day tobacco/nicotine user cigarettes Packs smoked per day: 1 Alcohol intake: current Alcohol intake frequency: holidays/special occasions only Substance/Drug Use: current Substance/Drug use frequency: few times a month Lives independently: Yes Household members: family Marital status: Current occupational status: disabled Special samuel needs: No Agree to transfusion: Yes Physical Exam Narrative: EXAM NARRATIVE: General: Alert, mild distress. Skin: Warm, dry. Head: Normocephalic, atraumatic. Neck: Supple, trachea midline. Eye: Extraocular movements are intact. Ears, nose, mouth and throat: mucosa moist. Cardiovascular: Regular, Normal peripheral perfusion. Respiratory: Lungs are clear to auscultation, respirations are non-labored, breath sounds are equal, Symmetrical chest wall expansion. Gastrointestinal: Soft, moderate upper abdominal tenderness Musculoskeletal: Normal ROM, no deformity. Neurological: Alert and oriented, No focal neurological deficit observed. Psychiatric: Cooperative, appropriate mood & affect. Course Vital Signs: Vital signs: Vital Signs Temperature 97.9 F 11/26/24 21:47 Pulse Rate 97 11/27/24 02:40 Respiratory Rate 16 11/27/24 02:40 Blood Pressure 163/98 11/27/24 02:40 Pulse Oximetry 95 11/27/24 02:40 Oxygen Delivery Me thod Room Air 11/27/24 02:40 Oxygen Flow Rate 2 11/26/24 23:05 MDM - Abdominal Pain Medical Decision Making Medical decision making: Differential diagnosis including but not limited to and based on the above HPI, review of systems and physical exam: In this patient with epigastric pain differential would include cholelithiasis or cholecystitis. Hepatitis. Diverticulitis. Constipation. UTI. colitis. small bowel obstruction. crohn's flare. pancreatitis. gastritis. peptic ulcer. also concern for acute cardiac event. Orders placed to evaluate differential diagnosis based on the above differential, HPI and physical exam Lab Review: Laboratory results were reviewed and interpreted by myself the emergency room physician. Patient does have some leukocytosis with a white count of 20,000. Worsening polycythemia with a hemoglobin of 20. That combined with some slight worsening of her creatinine at 1.2. I believe she is dehydrated. She received a liter of fluids here. Lactic acid was negative. No signs of infection. No UTI. CT of the abdomen pelvis shows chronic findings and severe colonic constipation but no acute diverticulitis or other acute findings. No obstructions. This was reviewed and interpreted by myself the emergency room physician. I also reviewed the radiology report. I reviewed the patient's medical record. Reexamination: Patient is somewhat improved. Pain has improved. She is given a enema and mag citrate. Little results. Will send her home with GoLytely for cleanout. And maintenance. With MiraLAX. Assessment and plan: Constipation Abdominal pain Dehydration ? IV fluids. - Discharged home - Discussed plan with patient. Answered any questions. - Evaluation and treatment of this problem were appropriate in the emergency setting. Lab Data 11/26/24 22:00 11/26/24 22:00 Labs/Radiology: Radiology Impressions Abdomen X-Ray 11/26/24 21:50 IMPRESSION: Bowel gas pattern suggests constipation. No features of small bowel obstruction. It is difficult to exclude free air without upright view. Chest X-Ray 11/26/24 21:50 IMPRESSION: Stable mild cardiomegaly. No airspace disease. Abdomen/Pelvis CT 11/26/24 22:18 IMPRESSION: 1. Large volume fecal debris throughout the colon with transition point at the junction of the descending and sigmoid colon. Distal to this long segment of luminal narrowing there is normal volume fecal debris in the rectum. Similar pattern was seen on prior exams. While this could represent underdistension, the possibility of m 2. Uscular hypertrophy in the sigmoid colon, stricture, or even long segment mass cannot be excluded. If not already performed, consider colonoscopy. 3. Severe distal aortic calcific plaque with high-grade stenosis, similar to prior. 4. Cirrhotic morphology of the liver. 5. Mild biliary tree dilation is accentuated from prior, in the contents of the common duct appear somewhat heterogeneous raising the possibility choledocholithiasis. MRCP may be helpful for further evaluation. Ultrasound may be not be definitive. Laboratory Results WBC 20.29 10^3/uL (3.29-11.43) H 11/26/24 22:00 RBC 7.24 10^6/uL (3.85-5.65) H 11/26/24 22:00 Hgb 20.50 g/dL (11.27-16.99) H 11/26/24 22:00 Hct 63.1 % (36-47) H 11/26/24 22:00 MCV 87.2 fl (85-98) 11/26/24 22:00 MCH 28.3 pg (27-33) 11/26/24 22:00 MCHC 32.5 g/dL (30-55) 11/26/24 22:00 RDW 17.1 % (12.1-15.1) H 11/26/24 22:00 Plt Count 314 10^3/cmm (157-399) 11/26/24 22:00 MPV 8.9 fL (7.4-10.4) 11/26/24 22:00 Neut % (Auto) 78.9 % 11/26/24 22:00 Lymph % (Auto) 13.7 % 11/26/24 22:00 Brooks % (Auto) 4.6 % 11/26/24 22:00 Eos % (Auto) 1.0 % 11/26/24 22:00 Baso % (Auto) 0.6 % 11/26/24 22:00 Neut # (Auto) 16.03 10^3/uL (1.8-7.7) H 11/26/24 22:00 Lymph # (Auto) 2.8 10^3/uL (0.8-4.8) 11/26/24 22:00 Brooks # (Auto) 0.9 10^3/uL (0.2-0.9) 11/26/24 22:00 Eos # (Auto) 0.2 10^3/uL (0.0-0.8) 11/26/24 22:00 Baso # (Auto) 0.1 10^3/uL (0.0-0.1) 11/26/24 22:00 Nucleated RBC % (auto) 0 % 11/26/24 22:00 Nucleated RBCs # 0.0 /100WBC 11/26/24 22:00 Sodium 131 mmol/L (136-145) L 11/26/24 22:00 Potassium 4.2 mmol/L (3.5-5.1) 11/26/24 22:00 Chloride 94 mmol/L (98-107) L 11/26/24 22:00 Carbon Dioxide 24 mmol/L (22-29) 11/26/24 22:00 Anion Gap 17.2 (5-19) 11/26/24 22:00 BUN 24 mg/dL (6-20) H 11/26/24 22:00 Creatinine 1.2 mg/dL (0.5-0.9) H 11/26/24 22:00 GFR Calculation 46.1 mL/min (90-130) L 11/26/24 22:00 Glucose 173 mg/dL (65-115) H 11/26/24 22:00 Calculated Osmolality 280 mOsm/kg (285-295) L 11/26/24 22:00 Lactic Acid 2.3 mmol/L (0.5-2.2) H 11/26/24 22:00 Lactic Acid (Sepsis) 1.3 mmol/L (0.5-2.2) 11/27/24 01:26 Calcium 9.6 mg/dL (8.5-10.5) 11/26/24 22:00 Total Bilirubin 1.2 mg/dL (0.15-1.2) 11/26/24 22:00 AST 17 U/L (0-32) 11/26/24 22:00 ALT 15 U/L (0-33) 11/26/24 22:00 Alkaline Phosphatase 160 U/L (35-105) H 11/26/24 22:00 C-Reactive Protein 23.9 mg/L (0.0-4.9) H 11/26/24 22:00 Total Protein 9.0 g/dL (6.6-8.7) H 11/26/24 22:00 Albumin 4.1 g/dL (3.5-5.2) 11/26/24 22:00 Globulin 4.9 g/dL (1.3-4.6) H 11/26/24 22:00 Lipase 19 U/L (13-60) 11/26/24 22:00 Urine Color Other (Yellow) A 11/26/24 22:45 Urine Appearance Clear (CLEAR) 11/26/24 22:45 Urine pH 5 (5-7) 11/26/24 22:45 Ur Specific [place] 1.020 (1.005-1.030) 11/26/24 22:45 Urine Protein 1+ (Negative) A 11/26/24 22:45 Urine Glucose (UA) Norm (Normal) 11/26/24 22:45 Urine Ketones Negative (Negative) 11/26/24 22:45 Urine Blood Neg (Negative) 11/26/24 22:45 Urine Nitrate Negative (Negative) 11/26/24 22:45 Urine Bilirubin 1+ (Negative) H 11/26/24 22:45 Urine Urobilinogen 4 mg/dL (Negative) H 11/26/24 22:45 Ur Leukocyte Esterase Trace (Negative) A 11/26/24 22:45 Urine RBC 0-2 /hpf (0-2) 11/26/24 22:45 Urine WBC 0-5 /hpf (0-5) 11/26/24 22:45 Ur Squamous Epith Cells 0-5 /hpf (0-5) 11/26/24 22:45 Amorphous Sediment Not Reportable 11/26/24 22:45 Urine Bacteria None seen /hpf (NONE) 11/26/24 22:45 Hyaline Casts 10.73 /lpf 11/26/24 22:45 Influenza A (PCR) Negative (Negative) 11/26/24 22:21 Influenza Type B (PCR) Negative (Negative) 11/26/24 22:21 RSV (PCR) Negative (Negative) 11/26/24 22:21 SARS-CoV-2 (PCR) Negative (Negative) 11/26/24 22:21 All radiology interpretation(s) finalized by discharge Discharge Plan Discharge Patient Disposition: Home Clinical Impression: Constipation, Abdominal pain, Vomiting, Dehydration Condition: Stable Prescriptions: New glycerin (child) Suppository 1 supp MT DAILY PRN (Reason: constipation) Qty: 12 0RF magnesium citrate Solution 296 ml PO ONCE Qty: 296 0RF polyethylene glycol 3350 [Miralax] 17 gram/dose powder 17 g PO DAILY Qty: 510 0RF Rx Instructions: Take 1-2 scoops daily for the next 3 months to keep stools soft No Action guaifenesin [Mucinex] 600 mg tablet extended release 12hr 600 mg PO Q12H PRN (Reason: Cough) citalopram [Celexa] 40 mg tablet 40 mg PO .morning Qty: 90 2RF Rx Instructions: Take one tablet every morning gabapentin 300 mg capsule 300 mg PO TID Qty: 270 2RF Rx Instructions: Take one capsule three times per day minocycline 100 mg capsule 100 mg PO DAILY Qty: 7 3RF prednisone 20 mg tablet 40 mg PO DAILY 5 Days Qty: 10 0RF sucralfate 100 mg/mL suspension 10 ml PO BID 14 Days Qty: 280 0RF atorvastatin 10 mg tablet 10 mg PO DAILY Qty: 90 1RF valsartan 80 mg tablet 80 mg PO DAILY@09 Qty: 90 1RF amitriptyline 25 mg tablet 25 mg PO BEDTIME Qty: 90 2RF Rx Instructions: Take one tablet at bedtime bupropion HCl [Wellbutrin SR] 150 mg tablet sustained-release 12 hr 150 mg PO QAM Qty: 30 3RF Rx Instructions: Take one tablet every morning, set a target date within 2 weeks of starting for nicotine cessation. docusate sodium 100 mg capsule 100 mg PO DAILY PRN (Reason: constipation) Qty: 10 0RF Rx Instructions: drink plenty of water alprazolam 1 mg tablet 1 mg PO TID PRN (Reason: anxiety) Qty: 90 3RF Rx Instructions: May take one tablet three times per day as needed for anxiety baclofen 10 mg tablet See Rx Instructions .ROUTE .COMPLEX Qty: 90 1RF Dose Instruction: TAKE 1 TABLET BY MOUTH THREE TIMES DAILY FOR SPASMS Rx Instructions: TAKE 1 TABLET BY MOUTH THREE TIMES DAILY FOR SPASMS pantoprazole [Protonix] 40 mg tablet,delayed release (DR/EC) 40 mg PO BID Qty: 90 1RF Benadryl Allergy 50 mg tablet 50 mg PO ONCE PRN (Reason: allergy symptoms) Qty: 1 0RF Rx Instructions: take at 11:30 AM on 11/05/24 acetaminophen 500 mg Tablet 500 mg PO Q6H PRN (Reason: Pain) potassium chloride [Klor-Con M20] 20 mEq tablet,ER particles/crystals 20 meq PO BID Qty: 270 1RF Discharge Orders: Discharge ED (Routine); Ordered 11/27/24 Ordered By: Gabriella Barrios Referrals: Farhat Mejias MD [Primary Care Provider] - Discharge Diet: Usual diet Discharge Activity: Increase activity as tolerated Patient Instructions: Abdominal Pain (ED), Opioid Safety, Pain Management Activity Restrictions/Additional Instructions: Take about 500 cc of GoLytely every 2-3 hours while awake until Stools are clear. Thank you for choosing [facility] for your healthcare needs today. Please realize this is an emergency room and that we are providing you with a medical screening exam and this may not be complete and all inclusive of all the testing and or work up that you may need to determine your ailment or severity of your illness. You have been screened and evaluated and felt safe for discharge. Health conditions do change or evolve sometimes and as such it is important that you follow up with your Primary Doctor to be re checked, 3-5 days is a general good time frame for follow up. 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
[2024-11-26 22:05] LABS: Basophils # 0.1 10^3/uL (0.0-0.1); Basophils % 0.6 %; Eosinophils # 0.2 10^3/uL (0.0-0.8); Hematocrit 63.1 % (36-47); Lymphocytes # 2.8 10^3/uL (0.8-4.8); Lymphocytes % 13.7 %; Mean Corpuscular HGB Conc 32.5 g/dL (30-55); Mean Corpuscular Hemoglobin 28.3 pg (27-33); Mean Corpuscular Volume 87.2 fl (85-98); Mean Platelet Volume 8.9 fL (7.4-10.4); Monocytes # 0.9 10^3/uL (0.2-0.9); Monocytes % 4.6 %; Neutrophils # 16.03 10^3/uL (1.8-7.7); Neutrophils % 78.9 %; Nucleated Red Blood Cells % 0 %; Platelet Count 314 10^3/cmm (157-399); Red Blood Count 7.24 10^6/uL (3.85-5.65); Red Cell Distribution Width 17.1 % (12.1-15.1); White Blood Count 20.29 10^3/uL (3.29-11.43)
[2024-11-26] MEDS: ondansetron 2 mg/ML SDV 2 mL 8 MG IVP (22:09)
[2024-11-26] MEDS: sodium chloride 0.9% 1,000 ML 999 ML IV (22:09)
--- NOTE | 2024-11-26 22:18 | CTR_ITS ---
PROCEDURE INFORMATION: Exam: CT Abdomen And Pelvis With Contrast Exam date and time: 11/26/2024 11:14 PM Age: 59 years old Clinical indication: Abdominal pain; Periumbilical; Prior surgery; Surgery date: 1-6 months; Surgery type: Abdomen abscess TECHNIQUE: Imaging protocol: Computed tomography of the abdomen and pelvis with contrast. Radiation optimization: All CT scans at this facility use at least one of these dose optimization techniques: automated exposure control; mA and/or kV adjustment per patient size (includes targeted exams where dose is matched to clinical indication); or iterative reconstruction. Contrast material: OMNI 350; Contrast volume: 75 ml; Contrast route: INTRAVENOUS (IV); COMPARISON: 1. CT abdomen pelvis w con* [id number] 08/26/2024 1:[address] angio abd aorta runof [id number] 11/05/2024 12:[address] abdomen pelvis w con* [id number] 12/21/2023 9:06 AM RADIATION DOSE METRICS: Total DLP (mGy-cm): 923.78 FINDINGS: Lungs: Mild dependent change at each lung base. No airspace disease. Pleural spaces: No pleural fluid or pneumothorax. Heart: Mild cardiomegaly. Diaphragm: Tiny sliding hiatal hernia. Liver: Cirrhotic morphology of the liver. No discrete hepatic mass. Liver measures 17.5 cm in length. Gallbladder and biliary ducts: Prior cholecystectomy. Moderate prominence of the biliary tree is accentuated from prior measuring 13 mm in diameter, previously 10 mm 1 year ago. Subtle heterogeneity of the material in the common duct is noted. Pancreas: No visible pancreatic edema or mass. Spleen: Spleen measures 10.8 cm in length. Adrenal glands: Normal configuration. Kidneys and ureters: Kidneys enhance symmetrically and demonstrate no evidence of mass, calculus, obstruction, or inflammation. Stomach and bowel: Stomach is fluid filled with mild diffuse mucosal enhancement and prominence of the rugal folds. No visible ulcer or mass. Normal caliber small bowel. Very large volume fecal debris noted throughout the colon with transition point at the junction of the descending and sigmoid. There is segmental mural thickening and poor definition of the lumen in the sigmoid colon, similar to recent priors. Scattered distal colonic diverticula. No evidence of acute diverticulitis. A fatty mural lesion in the ascending colon is compatible with a lipoma. Appendix: Normal appendix is confirmed. Intraperitoneal space: No free air. No significant fluid collection. Vasculature: Moderate to advanced calcific plaque in the abdominal aorta with severe distal luminal narrowing. There is faint contrast in the proximal iliac arteries, so the abdominal aorta is not completely occluded. Mesenteric arteries enhance normally. Lymph nodes: No enlarged lymph nodes. Urinary bladder: Unremarkable as visualized. Reproductive: Prior hysterectomy. No evidence of vaginal cuff or adnexal mass. Bones/joints: No fracture or destructive bony lesion. Soft tissues: Midline abdominal incision appears to have healed by secondary intention. No perineal/perianal abscess or inflammation. CT/CT abdomen pelvis w con* [id number] IMPRESSION: 1. Large volume fecal debris throughout the colon with transition point at the junction of the descending and sigmoid colon. Distal to this long segment of luminal narrowing there is normal volume fecal debris in the rectum. Similar pattern was seen on prior exams. While this could represent underdistension, the possibility of m 2. Uscular hypertrophy in the sigmoid colon, stricture, or even long segment mass cannot be excluded. If not already performed, consider colonoscopy. 3. Severe distal aortic calcific plaque with high-grade stenosis, similar to prior. 4. Cirrhotic morphology of the liver. 5. Mild biliary tree dilation is accentuated from prior, in the contents of the common duct appear somewhat heterogeneous raising the possibility choledocholithiasis. MRCP may be helpful for further evaluation. Ultrasound may be not be definitive.
[2024-11-26 22:24] LABS: Alanine Aminotransferase 15 U/L (0-33); Albumin Level 4.1 g/dL (3.5-5.2); Alkaline Phosphatase 160 U/L (35-105); Anion Gap 17.2 (5-19); Aspartate Amino Transferase 17 U/L (0-32); Blood Urea Nitrogen 24 mg/dL (6-20); C Reactive Protein 23.9 mg/L (0.0-4.9); Calcium 9.6 mg/dL (8.5-10.5); Carbon Dioxide 24 mmol/L (22-29); Chloride 94 mmol/L (98-107); Creatinine Clr Calc Pharmacy 51.2966; Globulin 4.9 g/dL (1.3-4.6); Glomerular Filtration Rate 46.1 mL/min (90-130); Glucose 173 mg/dL (65-115); Lipase 19 U/L (13-60); Osmolality Calculated 280 mOsm/kg (285-295); Potassium 4.2 mmol/L (3.5-5.1); Sodium 131 mmol/L (136-145); Total Bilirubin 1.2 mg/dL (0.15-1.2)
[2024-11-26 22:35] LABS: Lactic Sepsis W/Reflex 2.3 mmol/L (0.5-2.2)
[2024-11-26 22:52] LABS: Bacteria Urine None Seen /hpf; Hyaline Casts Urine 10.73 /lpf; RBC Urine 0-2 /hpf (0-2); Squamous Epithelial Cell Urine 0-5 /hpf (0-5); WBC Urine 0-5 /hpf (0-5)
[2024-11-26] MEDS: methylPREDNISolone sod succ 125 mg/2 mL INJ IVP (22:53)
[2024-11-26] MEDS: HYDROmorphone 0.5 MG/0.5 ML INJ 1 MG IVP (22:53)
[2024-11-26] MEDS: famotidine 20 mg/2 mL INJ 40 MG IVP (22:54)
[2024-11-26] MEDS: diphenhydrAMINE 50 mg/mL SDV 1mL IVP (22:54)
[2024-11-26 22:59] VITALS: BP 177/101; PULSE 88; RESP 16; O2SAT 93
[2024-11-26 23:05] VITALS: BP 160/94; PULSE 86; RESP 14; O2SAT 93
[2024-11-26 23:10] LABS: Bilirubin Urine 1+ (Negative); Blood Urine Neg (Negative); Glucose Urine UA Norm (Normal); Ketones Urine Negative (Negative); Leukocyte Esterase Urine Trace (Negative); Nitrate Urine Negative (Negative); Protein Urine 1+ (Negative); Urine Appearance Clear (CLEAR); Urine Color Other (Yellow); Urobilinogen Urine 4 mg/dL (Negative); pH Urine 5 (5-7)
[2024-11-26 23:10] LABS: Influenza A NEGATIVE (Negative); Influenza B NEGATIVE (Negative); Respiratory Syncytial Virus Ce NEGATIVE (Negative); SARS-CoV-2 PCR NEGATIVE (Negative)
[2024-11-26 23:11] LABS: UA Slide Review UA Slide Review Perf
[2024-11-26] MEDS: iohexol 350 mg/mL 500 mL Btl (per mL) IV (23:17)
[2024-11-26 23:50] LABS: Reflex Lactate Order REFLEX LACTIC ORDERD
[2024-11-27 01:28] VITALS: BP 157/76; PULSE 99; O2SAT 95
[2024-11-27] MEDS: mineral oil ENEMA 133 mL PR (01:36)
[2024-11-27] MEDS: magnesium citrate Btl 296 mL PO (01:36)
[2024-11-27 01:59] LABS: Lactic Acid level (Lactate) 1.3 mmol/L (0.5-2.2)
[2024-11-27 02:40] VITALS: BP 163/98; PULSE 97; RESP 16; O2SAT 95
[2024-11-27] MEDS: sodium chloride 0.9% 1,000 ML 999 ML IV (02:41)
[2024-11-27] MEDS: peg /e-lyte soln 4,000 mL Btl 4000 ML PO (03:37)
[2024-11-27 04:33] VITALS: BP 147/86; PULSE 98; RESP 16; O2SAT 97
== END 2024-11-27 04:28 | disposition home or self-care (01) ==
PROVIDERS: Emergency Provider Emergency Medicine; PCP Family Medicine
DX: K59.00 Constipation, unspecified (principal); R10.9 Unspecified abdominal pain; R11.10 Vomiting, unspecified; E86.0 Dehydration; Z11.52 Encounter for screening for COVID-19; F17.210 Nicotine dependence, cigarettes, uncomplicated; J44.9 Chronic obstructive pulmonary disease, unspecified; E78.5 Hyperlipidemia, unspecified; I10 Essential (primary) hypertension
CPT/HCPCS: 36415; 71045; 74018; 74177; 80053; 81001; 83605; 83690; 85025; 86140; 87040; 87637; 96374; 96375; 99285; J1171; J1200; J2405; J2919; J3490; J7030; J9999

== ENCOUNTER 2024-11-28 23:59 | Emergency (ER) | payer MEDICARE, MEDICAID, SELFPAY ==
[2024-11-29 00:09] VITALS: BP 152/94; PULSE 85; RESP 18; TEMP 36.6; O2SAT 98
--- NOTE | 2024-11-29 01:39 | W.ED.ABDPA2 ---
HPI - Abdominal Pain General: Chief Complaint: Abdominal Pain Stated Complaint: N/V No BM for a bunch of days Time Seen by Provider: 11/29/24 01:15 History of Present Illness: Patient presents to the ER with complaints of nausea vomiting x 4 days. She also complains of constipation abdominal pain during this time. She says she not had a bowel movement for multiple days. She has been seen here as well as her primary care doctor for this and she has medicine at home but she is so nauseated she cannot keep her medicine down. She has no nausea medicine at home. Related Data Home Medications ?Medication ?Instructions ?Recorded ?Confirmed guaifenesin 600 mg tablet, 600 mg PO Q12H PRN Cough 12/21/22 11/28/24 extended release 12 hr (Mucinex) acetaminophen 500 mg tablet 500 mg PO Q6H PRN Pain 08/26/24 11/28/24 Previous Rx's ?Medication ?Instructions ?Recorded atorvastatin 10 mg tablet 10 mg PO DAILY #90 tabs 09/19/23 valsartan 80 mg tablet 80 mg PO DAILY@09 #90 tabs 09/19/23 citalopram 40 mg tablet (Celexa) 40 mg PO .morning #90 tabs 05/05/24 gabapentin 300 mg capsule 300 mg PO TID #270 caps 05/05/24 amitriptyline 25 mg tablet 25 mg PO BEDTIME #90 tabs 07/01/24 bupropion HCl 150 mg tablet,12 hr 150 mg PO QAM #30 tabs 07/16/24 sustained-release (Wellbutrin SR) potassium chloride 20 mEq 20 meq PO BID #270 tabs 09/01/24 tablet,extended release(part/cryst) (Klor-Con M) alprazolam 1 mg tablet 1 mg PO TID PRN anxiety #90 tabs 09/08/24 baclofen 10 mg tablet See Rx Instructions .Route 10/02/24 .COMPLEX #90 tabs pantoprazole 40 mg tablet,delayed 40 mg PO BID #90 tabs 10/09/24 release (Protonix) diphenhydramine HCl 50 mg tablet 50 mg PO ONCE PRN allergy symptoms 11/04/24 (Benadryl Allergy) #1 tab minocycline 100 mg capsule 100 mg PO DAILY #7 caps 11/18/24 sucralfate 100 mg/mL oral 10 ml PO BID 2 weeks #280 mL 03/31/25 suspension glycerin (child) 1 supp [place] DAILY PRN constipation 11/27/24 #12 ea magnesium citrate 296 ml PO ONCE #296 mL 11/27/24 docusate sodium 100 mg capsule 100 mg PO DAILY PRN constipation 11/28/24 #30 caps lactulose 10 gram/15 mL oral 20 g (30 mL) PO BID 5 days #300 mL 11/28/24 solution polyethylene glycol 3350 17 See Rx Instructions PO DAILY #510 11/28/24 gram/dose oral powder (Miralax) grams metoclopramide HCl 10 mg tablet 10 mg PO Q6H PRN nausea and 11/29/24 (Reglan) vomiting #30 tabs Allergies Allergy/AdvReac Type Severity Reaction Status Date / Time amoxicillin Allergy Severe ALGY-Rash Verified 11/29/24 00:13 codeine Allergy Unknown rash, Verified 11/29/24 00:13 itching Penicillins Allergy Unknown rash, Verified 11/29/24 00:13 itching Sulfa (Sulfonamide Allergy Unknown rash, Verified 11/29/24 00:13 Antibiotics) itching Iodinated Contrast Media Allergy Unknown Verified 11/29/24 00:13 Review of Systems General: Reports: 10 or more systems reviewed and unremarkable except in HPI and below PFSH ED PFSH: Medical History Eczema Abnormal urinalysis Surgical site infection Abdominal infection Open abdominal wall wound Hyperlipidemia HTN (hypertension) PAD (peripheral artery disease) Cirrhosis Psychiatric care Hypokalemia Sepsis Abdominal wall abscess at site of surgical wound Acid reflux Peritonitis (acute) generalized COPD (chronic obstructive pulmonary disease) Pneumonia Shock liver Rhabdomyolysis Septic shock Acute kidney injury Bowel perforation Nicotine dependence, cigarettes, uncomplicated Generalized anxiety disorder Major depressive disorder, recurrent severe 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, degenerative, lumbar spine Intervertebral disc disorder with radiculopathy of lumbosacral region Surgical History Hx of colonoscopy with polypectomy History of esophagogastroduodenoscopy (EGD) H/O drainage of abscess (~12/13/20) Intra-abdominal H/O exploratory laparotomy drainage of intra abdominal abscess Status post exploratory laparotomy H/O of hysterectomy with bilateral oophorectomy Family History Mother Congestive heart failure (CHF) Cancer mother Other Chronic kidney disease (CKD) Hypertension Lung disease Stroke Denies family history of Diabetes Clotting disorder Dementia Hyperlipidemia Psychiatric illness Anesthesia complication Bleeding disorder Social History Smoking and tobacco/nicotine status: current every day tobacco/nicotine user cigarettes Packs smoked per day: 1 Alcohol intake: current Alcohol intake frequency: holidays/special occasions only Substance/Drug Use: current Substance/Drug use frequency: few times a month Lives independently: Yes Household members: family Marital status: Current occupational status: disabled Special samuel needs: No Agree to transfusion: Yes Physical Exam Const: COMMON NORMALS: no acute distress, average body habitus, patient oriented x3, no limitations, healthy appearing, alert and well nourished HENMT: COMMON NORMALS: normocephalic, atraumatic, hearing grossly normal bilaterally, external ears normal, Normal external nose present, moist oral mucous membranes and oropharynx normal HEAD & SCALP: normocephalic and atraumatic NOSE: Normal external nose present EXTERNAL EAR: Yes external ears normal Neck/C-Spine: COMMON NORMALS: no JVD Chest: COMMONS NORMALS: normal inspection of the chest and normal palpation of entire chest wall Resp: COMMON NORMALS: normal respiratory effort, No retractions, No use of accessory muscles and clear to auscultation bilaterally AUSCULTATION: clear to auscultation bilaterally Cardio: COMMON NORMALS: no JVD, regular rate, regular rhythm, S1 normal heart sound present, S2 normal heart sound present, No gallops present (Cardio), No clicks present (Cardio), No murmurs present (Cardio) and No rub (Cardio) RATE: regular rate RHYTHM: regular rhythm HEART SOUNDS: S1 normal heart sound present and S2 normal heart sound present GI: COMMON NORMALS: Normal to inspection, nondistended, normoactive bowel sounds present, Soft to palpation, No hepatosplenomegaly present and no masses; negative for non-tender (Mildly diffusely tender) PALPATION: Yes Soft to palpation and Yes No hepatosplenomegaly present Neuro: COMMON NORMALS: patient oriented x3 SENSORIUM/ORIENTATION: Yes alert Course Vital Signs: Vital signs: Vital Signs Temperature 97.9 F 11/29/24 00:09 Pulse Rate 98 11/29/24 03:13 Respiratory Rate 18 11/29/24 03:13 Blood Pressure 154/104 11/29/24 03:13 Pulse Oximetry 90 11/29/24 03:13 Oxygen Delivery Me thod Room Air 11/29/24 03:13 MDM - Abdominal Pain Medical Decision Making Patient was given Zofran this did seem to help but patient still complained of retching. Patient was given Reglan. Patient stopped retching and went to sleep. Patient be discharged home on Reglan and she can take her constipation medicine 30 minutes after she takes her Reglan. Medical Records I reviewed the patient's medical records. Lab Data I reviewed the patient's lab results. All radiology interpretation(s) finalized by discharge Discharge Plan Discharge Patient Disposition: Home Clinical Impression: Nausea & vomiting Qualifiers: Vomiting type: unspecified Qualified Code(s): R11.2 - Nausea with vomiting, unspecified Condition: Stable Prescriptions: New metoclopramide HCl [Reglan] 10 mg tablet 10 mg PO Q6H PRN (Reason: nausea and vomiting) Qty: 30 0RF No Action guaifenesin [Mucinex] 600 mg tablet extended release 12hr 600 mg PO Q12H PRN (Reason: Cough) citalopram [Celexa] 40 mg tablet 40 mg PO .morning Qty: 90 2RF Rx Instructions: Take one tablet every morning gabapentin 300 mg capsule 300 mg PO TID Qty: 270 2RF Rx Instructions: Take one capsule three times per day minocycline 100 mg capsule 100 mg PO DAILY Qty: 7 3RF sucralfate 100 mg/mL suspension 10 ml PO BID 14 Days Qty: 280 0RF polyethylene glycol 3350 [Miralax] 17 gram/dose powder See Rx Instructions PO DAILY Qty: 510 4RF Rx Instructions: 4 scoops of powder in water daily orally daily x 7 days, then 2 scoops daily ther after docusate sodium 100 mg capsule 100 mg PO DAILY PRN (Reason: constipation) Qty: 30 0RF Rx Instructions: drink plenty of water lactulose 10 gram/15 mL solution 20 g PO BID 5 Days Qty: 300 0RF atorvastatin 10 mg tablet 10 mg PO DAILY Qty: 90 1RF valsartan 80 mg tablet 80 mg PO DAILY@09 Qty: 90 1RF amitriptyline 25 mg tablet 25 mg PO BEDTIME Qty: 90 2RF Rx Instructions: Take one tablet at bedtime bupropion HCl [Wellbutrin SR] 150 mg tablet sustained-release 12 hr 150 mg PO QAM Qty: 30 3RF Rx Instructions: Take one tablet every morning, set a target date within 2 weeks of starting for nicotine cessation. alprazolam 1 mg tablet 1 mg PO TID PRN (Reason: anxiety) Qty: 90 3RF Rx Instructions: May take one tablet three times per day as needed for anxiety baclofen 10 mg tablet See Rx Instructions .ROUTE .COMPLEX Qty: 90 1RF Dose Instruction: TAKE 1 TABLET BY MOUTH THREE TIMES DAILY FOR SPASMS Rx Instructions: TAKE 1 TABLET BY MOUTH THREE TIMES DAILY FOR SPASMS pantoprazole [Protonix] 40 mg tablet,delayed release (DR/EC) 40 mg PO BID Qty: 90 1RF Benadryl Allergy 50 mg tablet 50 mg PO ONCE PRN (Reason: allergy symptoms) Qty: 1 0RF Rx Instructions: take at 11:30 AM on 11/05/24 acetaminophen 500 mg Tablet 500 mg PO Q6H PRN (Reason: Pain) potassium chloride [Klor-Con M20] 20 mEq tablet,ER particles/crystals 20 meq PO BID Qty: 270 1RF glycerin (child) Suppository 1 supp [place] DAILY PRN (Reason: constipation) Qty: 12 0RF magnesium citrate Solution 296 ml PO ONCE Qty: 296 0RF Discharge Orders: Discharge ED (Routine); Ordered 11/29/24 Ordered By: Harpreet Mistry Referrals: Farhat Mejias MD [Primary Care Provider] - 1 week Patient Instructions: Acute Nausea and Vomiting (DC) Activity Restrictions/Additional Instructions: Thank you for choosing [facility] for your healthcare needs today. Please realize that you were seen in the emergency department and that we are providing you with an emergency medical screening exam and this may not be a complete and all exclusive of all testing and/or medical workup we may need to determine your element or severity of your illness. It is very important that you follow-up as instructed with your primary care provider or specialist for the additional evaluation and to discuss your medical treatment plan. You may return to the emergency department should you have concerns or if your condition changes or worsens in any way. 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
[2024-11-29] MEDS: ondansetron 2 mg/ML SDV 2 mL 8 MG IM (02:11)
[2024-11-29] MEDS: metoclopramide 5 mg/mL SDV 2 mL 10 MG IVP (03:12)
[2024-11-29 03:13] VITALS: BP 154/104; PULSE 98; RESP 18; O2SAT 90
[2024-11-29 05:22] VITALS: BP 146/91; PULSE 94; RESP 16; O2SAT 90
== END 2024-11-29 05:29 | disposition home or self-care (01) ==
PROVIDERS: Emergency Provider Emergency Medicine; PCP Family Medicine
DX: R11.2 Nausea with vomiting, unspecified (principal); F17.210 Nicotine dependence, cigarettes, uncomplicated; J44.9 Chronic obstructive pulmonary disease, unspecified; E78.5 Hyperlipidemia, unspecified; I10 Essential (primary) hypertension
CPT/HCPCS: 96374; 99284; J2405; J2765

== ENCOUNTER 2024-12-01 02:12 | Emergency (ER) | payer MEDICARE, MEDICAID, SELFPAY ==
[2024-12-01] VITALS (66 sets, daily range): BP systolic 87–179; BP diastolic 38–119; PULSE 79–111; RESP 8–65; TEMP 36.6; O2SAT 32–100; BMI 38.5
[2024-12-01] MEDS: magnesium hydroxide 30 mL UDC PO (03:12)
[2024-12-01] MEDS: mineral oil 30 mL UDC PO (03:12)
[2024-12-01] MEDS: lactulose oral liq 20 gm/30 mL UDC 30 GM PO (03:12)
[2024-12-01] MEDS: haloperidol inj 5 mg/mL INJ 1 mL IVP (03:14)
--- NOTE | 2024-12-01 03:26 | ED_ITS ---
HPI - Abdominal Pain 2 General: Chief Complaint: Abdominal Pain Stated Complaint: ABD PAIN Time Seen by Provider: 12/01/24 02:47 History of Present Illness: 59-year-old female. She presents with a bdominal pain. This is the third time she has been seen in the last week for the same complaint. She complains of pain, distention, multiple episodes of vomiting, and inability to have bowel movements. She denies fevers. No blood in the stool. Related Data Home Medications ?Medication ?Instructions ?Recorded ?Confirmed guaifenesin 600 mg tablet, 600 mg PO Q12H PRN Cough 11/28/24 extended release 12 hr (Mucinex) acetaminophen 500 mg tablet 500 mg PO Q6H PRN Pain 11/28/24 Previous Rx's ?Medication ?Instructions ?Recorded atorvastatin 10 mg tablet 10 mg PO DAILY #90 tabs 08/28 12/18 valsartan 80 mg tablet 80 mg PO DAILY@09 #90 tabs 0 09/19/23 citalopram 40 mg tablet (Celexa) 40 mg PO .morning #90 tabs 05/05/24 gabapentin 300 mg capsule 300 mg PO TID #270 caps 05/20 amitriptyline 25 mg tablet 25 mg PO BEDTIME #90 tabs 1 08/31/23 bupropion HCl 150 mg tablet,12 hr 150 mg PO QAM #30 ta bs 07/16/24 sustained-release (Wellbutrin SR) potassium chloride 20 mEq 20 meq PO BID #270 tabs 02/18 tablet,extended release(part/cryst) (Klor-Con M) alprazolam 1 mg tablet 1 mg PO TID PRN anxiety #90 tabs 09/08/24 baclofen 10 mg tablet See Rx Instructions .Route 0 10/02/24 .COMPLEX #90 tabs pantoprazole 40 mg tablet,delayed 40 mg PO BID #90 tab s 10/09/24 release (Protonix) diphenhydramine HCl 50 mg tablet 50 mg PO ONCE PRN all ergy symptoms 11/04/24 (Benadryl Allergy) #1 tab minocycline 100 mg capsule 100 mg PO DAILY #7 caps sucralfate 100 mg/mL oral 10 ml PO BID 2 weeks #280 mL 03/31/25 suspension glycerin (child) 1 supp [place] DAILY PRN constipa tion 11/27/24 #12 ea magnesium citrate 296 ml PO ONCE #296 mL 11/27 docusate sodium 100 mg capsule 100 mg PO DAILY PRN con stipation 11/28/24 #30 caps lactulose 10 gram/15 mL oral 20 g (30 mL) PO BID 5 day s #300 mL 11/28/24 solution polyethylene glycol 3350 17 See Rx Instructions PO KATHY LY #510 11/28/24 gram/dose oral powder (Miralax) grams metoclopramide HCl 10 mg tablet 10 mg PO Q6H PRN nause a and 11/29/24 (Reglan) vomiting #30 tabs Allergies Allergy/AdvReac Type Severity Reaction Status Date / Time amoxicillin Allergy Severe ALGY-Rash Verified 12/01/24 02:22 codeine Allergy Unknown rash, Verified 12/01/24 02:22 itching Penicillins Allergy Unknown rash, Verified 12/01/24 02:22 itching Sulfa (Sulfonamide Allergy Unknown rash, Verified 12/01/24 02:22 Antibiotics) itching Iodinated Contrast Media Allergy Unknown Verified 12/01/24 02:22 [facility] ED 2 PFSH: Medical History Eczema Abnormal urinalysis Surgical site infection Abdominal infection Open abdominal wall wound Hyperlipidemia HTN (hypertension) PAD (peripheral artery disease) Cirrhosis Psychiatric care Hypokalemia Sepsis Abdominal wall abscess at site of surgical wound Acid reflux Peritonitis (acute) generalized COPD (chronic obstructive pulmonary disease) Pneumonia Shock liver Rhabdomyolysis Septic shock Acute kidney injury Bowel perforation Nicotine dependence, cigarettes, uncomplicated Generalized anxiety disorder Major depressive disorder, recurrent severe 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, degenerative, lumbar spine Intervertebral disc disorder with radiculopathy of lumbosacral region Surgical History Hx of colonoscopy with polypectomy History of esophagogastroduodenoscopy (EGD) H/O drainage of abscess (~12/13/20) Intra-abdominal H/O exploratory laparotomy drainage of intra abdominal abscess Status post exploratory laparotomy H/O of hysterectomy with bilateral oophorectomy Family History Mother Congestive heart failure (CHF) Cancer mother Other Chronic kidney disease (CKD) Hypertension Lung disease Stroke Denies family history of Diabetes Clotting disorder Dementia Hyperlipidemia Psychiatric illness Anesthesia complication Bleeding disorder Social History Smoking and tobacco/nicotine status: current every day tobacco/nicotine user cigarettes Packs smoked per day: 1 Alcohol intake: current Alcohol intake frequency: holidays/special occasions only Substance/Drug Use: current Substance/Drug use frequency: few times a month Lives independently: Yes Household members: family Marital status: Current occupational status: disabled Special samuel needs: No Agree to transfusion: Yes Physical Exam 2 Const: COMMON NORMALS: alert GENERAL APPEARANCE: cooperative O RIENTATION/CONSCIOUSNESS: Yes awake HENMT: COMMON NORMALS: normocephalic HEAD & SCALP: normocephalic FACE & SINUS: normal facial exam Eye: COMMON NORMALS: Equal, round and reactive pupils present and EOMs intact bilaterally PUPIL: Yes Equal, round and reactive pupils present Neck/C-Spine: GENERAL: Yes trachea midline Chest: CHEST: Yes Symmetrical chest wall rise Resp: COMMON NORMALS: normal respiratory effort, No use of accessory muscles and clear to auscultation bilaterally AUSCULTATION: clear to auscultation bilaterally Cardio: COMMON NORMALS: regular rate and regular rhythm RATE: regular rate RHYTHM: regular rhythm GI: INSPECTION: Yes abdominal distension PALPATION: Yes Tenderness to palpation present (GI) (Generalized) Neuro: SENSORIUM/ORIENTATION: Yes alert Course 2 Vital Signs: Vital signs: Vital Signs Temperature 97.8 F 12/01/24 02:14 Pulse Rate 87 12/01/24 06:45 Respiratory Rate 24 H 12/01/24 06:45 Blood Pressure 87/48 12/01/24 06:48 Pulse Oximetry 91 12/01/24 06:45 Oxygen Delivery Me thod Non-Rebreather 12/01/24 06:45 Oxygen Flow Rate 15 12/01/24 06:45 MDM - Abdominal Pain Medical Decision Making Earlier in the week, CT of the abdomen pelvis showed a significant constipation with a long segment of large bowel narrowing. White blood cell count is 33. Hemoglobin 19. Potassium is 2.9 and is repleted IV. Bicarbonate level is 18. First lactic acid is 3.5. Patient is given a bolus of fluid. This is switched to sepsis bolus given her leukocytosis. CT performed this morning is read as no acute findings, with increased stool within the colon. However, on my read, there is 4.5 cm dilated loops of small bowel in the belly. The patient is distended clinically, and clinically she is obstructed. Elected for NG tube placement. The patient did not tolerate this in August, and it could not be placed. Because of this, a small dose of Ativan, and 1 mg/kg of ketamine were given. NG tube was placed without trouble, but the patient did vomit during the procedure, and aspirate to some degree. She is on oxygen now. Given her her complicated care, elevation of lactate, need for close monitoring of blood pressure support and oxygen support, potential need for BiPAP, she will go to the ICU. Spoke with surgery. They are willing to consult. Call out to hospitalist. Lab Data 12/01/24 03:22 12/01/24 03:22 Labs/Radiology: Radiology Impressions Abdomen/Pelvis CT 12/01/24 03:44 IMPRESSION: 1. No acute findings. 2. Increased stool within the colon. No dilated bowel. ADDENDUM: 12/01/24 0706 Addendum: There is a large amount of stool fecal material both within distal ileum and the colon. The bowel dilatation abruptly ends near the junction of the distal descending and sigmoid where there is the suggestion of a partially obstructing mass. This is not definite but sigmoidoscopy is recommended. No small bowel obstruction is seen, the dilated small bowel loops with gas fluid levels are felt to be due to an incompetent ileocecal valve. The bowel obstructive changes are felt to be chronic or subacute. Chest X-Ray 12/01/24 05:35 IMPRESSION: 1. NG tube extends into the stomach and below the lower edge of the x-ray. 2. Cardiomegaly. 3. Mild right basilar atelectasis. Laboratory Results WBC 32.83 10^3/uL (3.29-11.43) H* 12/01/24 03:22 RBC 6.69 10^6/uL (3.85-5.65) H 12/01/24 03:22 Hgb 18.90 g/dL (11.27-16.99) H 12/01/24 03:22 Hct 58.9 % (36-47) H 12/01/24 03:22 MCV 88.0 fl (85-98) 12/01/24 03:22 MCH 28.3 pg (27-33) 12/01/24 03:22 MCHC 32.1 g/dL (30-55) 12/01/24 03:22 RDW 16.6 % (12.1-15.1) H 12/01/24 03:22 Plt Count 357 10^3/cmm (157-399) 12/01/24 03:22 MPV 9.3 fL (7.4-10.4) 12/01/24 03:22 Neut % (Auto) 86.4 % 12/01/24 03:22 Lymph % (Auto) 6.5 % 12/01/24 03:22 [place] % (Auto) 5.3 % 12/01/24 03:22 Eos % (Auto) 0.1 % 12/01/24 03:22 Baso % (Auto) 0.2 % 12/01/24 03:22 Neut # (Auto) 28.37 10^3/uL (1.8-7.7) H 12/01/24 03:22 Lymph # (Auto) 2.1 10^3/uL (0.8-4.8) 12/01/24 03:22 [place] # (Auto) 1.7 10^3/uL (0.2-0.9) H 12/01/24 03:22 Eos # (Auto) 0.0 10^3/uL (0.0-0.8) 12/01/24 03:22 Baso # (Auto) 0.1 10^3/uL (0.0-0.1) 12/01/24 03:22 Nucleated RBC % (auto) 0 % 12/01/24 03:22 Nucleated RBCs # 0.0 /100WBC 12/01/24 03:22 PT 15.80 SECONDS (12.1-14.9) H 12/01/24 06:12 INR 1.18 (0.8-1.2) 12/01/24 06:12 Specimen Type Arterial 12/01/24 06:46 Sample Site Radial, right 12/01/24 06:46 ABG pH 7.35 (7.35-7.45) 12/01/24 06:46 ABG pCO2 46.8 mmHg (35-45) H 12/01/24 06:46 ABG pO2 79.9 mmHg (80.0-100.0) L 12/01/24 06:46 ABG HCO3 26.0 mmol/L (22-26) 12/01/24 06:46 ABG Base Excess -0.3 mmol/L (-2.0-2.0) 12/01/24 06:46 Jorge Test Pos 12/01/24 06:46 Hematocrit 58.8 % (37-47) H 12/01/24 06:46 O2 Delivery Device Nrb 12/01/24 06:46 O2 Liters/Min 15.0 % 12/01/24 06:46 Commercial Interior Designer ID [email or web address] 12/01/24 06:46 Sodium 133 mmol/L (136-145) L 12/01/24 03:22 Potassium 2.9 mmol/L (3.5-5.1) L 12/01/24 03:22 Chloride 101 mmol/L (98-107) 12/01/24 03:22 Carbon Dioxide 18 mmol/L (22-29) L 12/01/24 03:22 Anion Gap 16.9 (5-19) 12/01/24 03:22 BUN 34 mg/dL (6-20) H 12/01/24 03:22 Creatinine 0.8 mg/dL (0.5-0.9) 12/01/24 03:22 GFR Calculation 73.7 mL/min (90-130) L 12/01/24 03:22 Glucose 157 mg/dL (65-115) H 12/01/24 03:22 Calculated Osmolality 287 mOsm/kg (285-295) 12/01/24 03:22 Lactic Acid 3.5 mmol/L (0.5-2.2) H 12/01/24 03:22 Lactic Acid (Sepsis) 5.2 mmol/L (0.5-2.2) H* 12/01/24 06:12 Calcium 6.6 mg/dL (8.5-10.5) L 12/01/24 03:22 Total Bilirubin 1.1 mg/dL (0.15-1.2) 12/01/24 03:22 AST 20 U/L (0-32) 12/01/24 03:22 ALT 16 U/L (0-33) 12/01/24 03:22 Alkaline Phosphatase 90 U/L (35-105) 12/01/24 03:22 C-Reactive Protein 8.0 mg/L (0.0-4.9) H 12/01/24 03:22 Total Protein 5.5 g/dL (6.6-8.7) L 12/01/24 03:22 Albumin 2.8 g/dL (3.5-5.2) L 12/01/24 03:22 Globulin 2.7 g/dL (1.3-4.6) 12/01/24 03:22 Lipase 11 U/L (13-60) L 12/01/24 03:22 Ethyl Alcohol < 10 mg/dL (0-10) 12/01/24 03:22 All radiology interpretation(s) finalized by discharge Critical Care Time 2 Critical Care Time: Critical Care Time: Yes Total Critical Care Time: 50 Attestation: This case had a high probability of a clinically significant, sudden, or life threatening deterioration of this patient's condition which required my full and direct attention, intervention and personal management. Time is independent of any procedures performed. Discharge Plan Discharge Patient Disposition: Admitted As Inpatient Clinical Impression: Constipation, Small bowel obstruction, Sepsis Condition: Serious Prescriptions: No Action guaifenesin [Mucinex] 600 mg tablet extended release 12hr 600 mg PO Q12H PRN (Reason: Cough) citalopram [Celexa] 40 mg tablet 40 mg PO .morning Qty: 90 2RF Rx Instructions: Take one tablet every morning gabapentin 300 mg capsule 300 mg PO TID Qty: 270 2RF Rx Instructions: Take one capsule three times per day minocycline 100 mg capsule 100 mg PO DAILY Qty: 7 3RF sucralfate 100 mg/mL suspension 10 ml PO BID 14 Days Qty: 280 0RF polyethylene glycol 3350 [Miralax] 17 gram/dose powder See Rx Instructions PO DAILY Qty: 510 4RF Rx Instructions: 4 scoops of powder in water daily orally daily x 7 days, then 2 scoops daily ther after docusate sodium 100 mg capsule 100 mg PO DAILY PRN (Reason: constipation) Qty: 30 0RF Rx Instructions: drink plenty of water lactulose 10 gram/15 mL solution 20 g PO BID 5 Days Qty: 300 0RF atorvastatin 10 mg tablet 10 mg PO DAILY Qty: 90 1RF valsartan 80 mg tablet 80 mg PO DAILY@09 Qty: 90 1RF amitriptyline 25 mg tablet 25 mg PO BEDTIME Qty: 90 2RF Rx Instructions: Take one tablet at bedtime bupropion HCl [Wellbutrin SR] 150 mg tablet sustained-release 12 hr 150 mg PO QAM Qty: 30 3RF Rx Instructions: Take one tablet every morning, set a target date within 2 weeks of starting for nicotine cessation. alprazolam 1 mg tablet 1 mg PO TID PRN (Reason: anxiety) Qty: 90 3RF Rx Instructions: May take one tablet three times per day as needed for anxiety baclofen 10 mg tablet See Rx Instructions .ROUTE .COMPLEX Qty: 90 1RF Dose Instruction: TAKE 1 TABLET BY MOUTH THREE TIMES DAILY FOR SPASMS Rx Instructions: TAKE 1 TABLET BY MOUTH THREE TIMES DAILY FOR SPASMS pantoprazole [Protonix] 40 mg tablet,delayed release (DR/EC) 40 mg PO BID Qty: 90 1RF Benadryl Allergy 50 mg tablet 50 mg PO ONCE PRN (Reason: allergy symptoms) Qty: 1 0RF Rx Instructions: take at 11:30 AM on 11/05/24 metoclopramide HCl [Reglan] 10 mg tablet 10 mg PO Q6H PRN (Reason: nausea and vomiting) Qty: 30 0RF acetaminophen 500 mg Tablet 500 mg PO Q6H PRN (Reason: Pain) potassium chloride [Klor-Con M20] 20 mEq tablet,ER particles/crystals 20 meq PO BID Qty: 270 1RF glycerin (child) Suppository 1 supp MS DAILY PRN (Reason: constipation) Qty: 12 0RF magnesium citrate Solution 296 ml PO ONCE Qty: 296 0RF Referrals: Farhat Mejias MD [Primary Care Provider] - Print Language: Namibian Coding 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
[2024-12-01 03:38] LABS: Basophils # 0.1 10^3/uL (0.0-0.1); Basophils % 0.2 %; Eosinophils % 0.1 %; Hematocrit 58.9 % (36-47); Lymphocytes # 2.1 10^3/uL (0.8-4.8); Lymphocytes % 6.5 %; Mean Corpuscular HGB Conc 32.1 g/dL (30-55); Mean Corpuscular Hemoglobin 28.3 pg (27-33); Mean Platelet Volume 9.3 fL (7.4-10.4); Monocytes # 1.7 10^3/uL (0.2-0.9); Monocytes % 5.3 %; Neutrophils # 28.37 10^3/uL (1.8-7.7); Neutrophils % 86.4 %; Nucleated Red Blood Cells % 0 %; Platelet Count 357 10^3/cmm (157-399); Red Blood Count 6.69 10^6/uL (3.85-5.65); Red Cell Distribution Width 16.6 % (12.1-15.1)
[2024-12-01 03:41] LABS: White Blood Count 32.83 10^3/uL (3.29-11.43)
--- NOTE | 2024-12-01 03:44 | CTR_ITS ---
PROCEDURE INFORMATION: Exam: CT Abdomen And Pelvis Without Contrast Exam date and time: 12/01/2024 3:57 AM Age: 59 years old Clinical indication: Nausea and vomiting; Abdominal pain; Generalized; Prior surgery; Surgery date: 6+ months; Surgery type: Hysterectomy. Gb; C/O worsening abd pain with n/v and constipation over the last five days. TECHNIQUE: Imaging protocol: Computed tomography of the abdomen and pelvis without contrast. Radiation optimization: All CT scans at this facility use at least one of these dose optimization techniques: automated exposure control; mA and/or kV adjustment per patient size (includes targeted exams where dose is matched to clinical indication); or iterative reconstruction. COMPARISON: CT abdomen pelvis w con* [id number] 11/26/2024 11:14 PM RADIATION DOSE METRICS: Total DLP (mGy-cm): 693.19 FINDINGS: Liver: Normal. No mass. Gallbladder and biliary ducts: Gallbladder is surgically absent. No biliary dilatation. Pancreas: Normal. No ductal dilation. Spleen: Normal. No splenomegaly. Adrenal glands: Normal. No mass. Kidneys and ureters: Normal. No hydronephrosis. Stomach and bowel: Increased stool within the colon. No dilated bowel. Appendix: No evidence of appendicitis. Intraperitoneal space: Unremarkable. No free air. No significant fluid collection. Vasculature: Vascular calcification in the aorta and iliac vessels. No aneurysm. Lymph nodes: Unremarkable. No enlarged lymph nodes. Urinary bladder: Unremarkable as visualized. Reproductive: Unremarkable as visualized. Bones/joints: Unremarkable. No acute fracture. Soft tissues: Unremarkable. CT/CT abdomen pelvis wo con [id number] IMPRESSION: 1. No acute findings. 2. Increased stool within the colon. No dilated bowel.
[2024-12-01] MEDS: morphine 4 mg/mL SDV 1 mL IVP (03:45)
[2024-12-01] MEDS: ketorolac 30 mg/mL INJ IVP (03:45)
[2024-12-01 03:50] LABS: Albumin Level 2.8 g/dL (3.5-5.2); Alkaline Phosphatase 90 U/L (35-105); Blood Urea Nitrogen 34 mg/dL (6-20); Calcium 6.6 mg/dL (8.5-10.5); Carbon Dioxide 18 mmol/L (22-29); Chloride 101 mmol/L (98-107); Creatinine Clr Calc Pharmacy 76.2867; Globulin 2.7 g/dL (1.3-4.6); Glomerular Filtration Rate 73.7 mL/min (90-130); Glucose 157 mg/dL (65-115); Lipase 11 U/L (13-60); Osmolality Calculated 287 mOsm/kg (285-295); Sodium 133 mmol/L (136-145); Total Bilirubin 1.1 mg/dL (0.15-1.2); Total Protein 5.5 g/dL (6.6-8.7)
[2024-12-01 03:51] LABS: Alcohol Level < 10 mg/dL (0-10)
[2024-12-01 03:53] LABS: Anion Gap 16.9 (5-19); Lactic Sepsis W/Reflex 3.5 mmol/L (0.5-2.2)
[2024-12-01 03:54] LABS: Alanine Aminotransferase 16 U/L (0-33); Aspartate Amino Transferase 20 U/L (0-32); Potassium 2.9 mmol/L (3.5-5.1)
[2024-12-01] MEDS: sodium chloride 0.9% 1,000 ML 999 ML IV (04:16)
[2024-12-01] MEDS: lidocaine 1% 5 ML in potassium chloride premix 100 ML 26.25 ML IV (04:17)
[2024-12-01] MEDS: mineral oil ENEMA 133 mL PR (04:21)
[2024-12-01 05:19] LABS: Reflex Lactate Order REFLEX LACTIC ORDERD
--- NOTE | 2024-12-01 05:35 | XRR_ITS ---
PROCEDURE INFORMATION: Exam: XR Chest Exam date and time: 12/01/2024 5:48 AM Age: 59 years old Clinical indication: Device placement; Ng tube; Prior surgery; Surgery date: 6+ months; Surgery type: Gb; Check S/P ng placement; Additional info: Post ng tube placement TECHNIQUE: Imaging protocol: Radiologic exam of the chest. Views: 1 view. COMPARISON: CR (CHEST, ) 11/26/2024 9:57 PM FINDINGS: Tubes, catheters and devices: NG tube extends into the stomach and below the lower edge of the x-ray. Monitor leads project over the chest. Lungs: Mild right basilar atelectasis. Pleural spaces: No significant costophrenic angle blunting. No pneumothorax. Heart/Mediastinum: Heart size is enlarged. Bones/joints: No acute osseous abnormality. Soft tissues: Large body habitus. XR/XR chest 1V portable [id number] IMPRESSION: 1. NG tube extends into the stomach and below the lower edge of the x-ray. 2. Cardiomegaly. 3. Mild right basilar atelectasis.
[2024-12-01] MEDS: LORazepam 2 mg/mL INJ 1 mL 1 MG IVP ×2 (05:36→09:18)
[2024-12-01] MEDS: cetacaine Spray 5 gm Can 1 SPRAY TOPICAL (05:50)
[2024-12-01] MEDS: ketamine 100 mg/mL Inj 5 mL 80 MG IVP (05:50)
[2024-12-01 06:40] LABS: INR 1.18 (0.8-1.2)
[2024-12-01 06:57] LABS: Lactic Acid level (Lactate) 5.2 mmol/L (0.5-2.2)
[2024-12-01 06:57] LABS: ABG PCO2 46.8 mmHg (35-45); ABG PH Result 7.35 (7.35-7.45); Arterial Blood Gas Hematocrit 58.8 % (37-47); Base Excess ABG -0.3 mmol/L (-2.0-2.0); Blood Gas Allen Test Pos; Blood Gas Operator Identificat gerca; Blood Gas Sample Site Radial, right; Blood Gas Sample Type Arterial; Oxygen Device NRB; PO2 ABG 79.9 mmHg (80.0-100.0)
[2024-12-01] MEDS: levofloxacin-dextrose 5 % 500 MG/100 ML PREMIX 100 MG IV (07:08)
--- NOTE | 2024-12-01 08:59 | PC.NURSE ---
per dr. weinstein, administer Ativan 1mg IVP ONCE
--- NOTE | 2024-12-01 09:07 | PM.CONSULT ---
Providers/Reason For Consult Consulting Physician/Specialty*: Dr. 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 At that time patient had an ex lap with lysis of adhesions and a Lloyd's was aborted due to the sigmoid being frozen in the pelvis. Patient underwent a washout and treated conservatively. Since then the patient has developed intermittent large bowel obstructions for which she has established care with Dr. Gutierrez at [facility] in [place]. Dr. Gutierrez has postponed doing surgery until vascular surgery addressed her severe left lower extremity claudication according to the patient. On her last hospital stay we attempted transfer to [place] without avail. Patient never followed up with the vascular surgeon or the colorectal surgeon. Now she comes back with abdominal pain. She is passing gas and is having bowel movements. She does have a white count of 32,000 and possibly right-sided colonic pneumatosis. She is currently on BiPAP. Her abdominal exam is relatively benign, distended and diffusely tender, nonperitoneal. Medications/Allergies Home Medications ?Medication ?Instructions ?Recorded ?Confirmed ?Last Taken ?Type atorvastatin 10 mg tablet 10 mg PO DAILY #90 tabs 09/19/23 12/01/24 08/25/24 Rx valsartan 80 mg tablet 80 mg PO DAILY@09 #90 tabs 09/19/23 12/01/24 08/25/24 Rx citalopram 40 mg tablet (Celexa) 40 mg PO .morning #90 tabs 05/05/24 12/01/24 08/25/24 Rx gabapentin 300 mg capsule 300 mg PO TID #270 caps 05/05/24 12/01/24 08/25/24 Rx amitriptyline 25 mg tablet 25 mg PO BEDTIME #90 tabs 07/01/24 12/01/24 08/25/24 Rx bupropion HCl 150 mg tablet,12 hr 150 mg PO QAM #30 tabs 07/16/24 12/01/24 08/25/24 Rx sustained-release (Wellbutrin SR) acetaminophen 500 mg tablet 500 mg PO Q6H PRN Pain 08/26/24 12/01/24 08/25/24 History potassium chloride 20 mEq 20 meq PO BID #270 tabs 09/01/24 12/01/24 08/25/24 Rx tablet,extended release(part/cryst) (Klor-Con M) alprazolam 1 mg tablet 1 mg PO TID PRN anxiety #90 tabs 09/08/24 12/01/24 Unknown Rx baclofen 10 mg tablet See Rx Instructions .Route 10/02/24 12/01/24 Unknown Rx .COMPLEX #90 tabs pantoprazole 40 mg tablet,delayed 40 mg PO BID #90 tabs 10/09/24 12/01/24 Unknown Rx release (Protonix) diphenhydramine HCl 50 mg tablet 50 mg PO ONCE PRN allergy symptoms 11/04/24 12/01/24 Unknown Rx (Benadryl Allergy) #1 tab minocycline 100 mg capsule 100 mg PO DAILY #7 caps 11/18/24 12/01/24 Unknown Rx sucralfate 100 mg/mL oral 10 ml PO BID 2 weeks #280 mL 11/24/24 12/01/24 Unknown Rx suspension glycerin (child) 1 supp [place] DAILY PRN constipation 11/27/24 12/01/24 Unknown Rx #12 ea magnesium citrate 296 ml PO ONCE #296 mL 11/27/24 12/01/24 Unknown Rx docusate sodium 100 mg capsule 100 mg PO DAILY PRN constipation 11/28/24 12/01/24 Unknown Rx #30 caps lactulose 10 gram/15 mL oral 20 g (30 mL) PO BID 5 days #300 mL 11/28/24 12/01/24 Unknown Rx solution polyethylene glycol 3350 17 See Rx Instructions PO DAILY #510 11/28/24 12/01/24 Unknown Rx gram/dose oral powder (Miralax) grams metoclopramide HCl 10 mg tablet 10 mg PO Q6H PRN nausea and 11/29/24 12/01/24 Unknown Rx (Reglan) vomiting #30 tabs Allergies Allergy/AdvReac Type Severity Reaction Status Date / Time amoxicillin Allergy Severe ALGY-Rash Verified 12/01/24 02:22 codeine Allergy Unknown rash, Verified 12/01/24 02:22 itching Penicillins Allergy Unknown rash, Verified 12/01/24 02:22 itching Sulfa (Sulfonamide Allergy Unknown rash, Verified 12/01/24 02:22 Antibiotics) itching Iodinated Contrast Media Allergy Unknown Verified 12/01/24 02:22 PFSH Acute PFSH: Medical History Eczema Abnormal urinalysis Surgical site infection Abdominal infection Open abdominal wall wound Hyperlipidemia HTN (hypertension) PAD (peripheral artery disease) Cirrhosis Psychiatric care Hypokalemia Sepsis Abdominal wall abscess at site of surgical wound Acid reflux Peritonitis (acute) generalized COPD (chronic obstructive pulmonary disease) Pneumonia Shock liver Rhabdomyolysis Septic shock Acute kidney injury Bowel perforation Nicotine dependence, cigarettes, uncomplicated Generalized anxiety disorder Major depressive disorder, recurrent severe 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, degenerative, lumbar spine Intervertebral disc disorder with radiculopathy of lumbosacral region Surgical History Hx of colonoscopy with polypectomy History of esophagogastroduodenoscopy (EGD) H/O drainage of abscess (~12/13/20) Intra-abdominal H/O exploratory laparotomy drainage of intra abdominal abscess Status post exploratory laparotomy H/O of hysterectomy with bilateral oophorectomy Family History Mother Congestive heart failure (CHF) Cancer mother Other Chronic kidney disease (CKD) Hypertension Lung disease Stroke Denies family history of Diabetes Clotting disorder Dementia Hyperlipidemia Psychiatric illness Anesthesia complication Bleeding disorder Social History Smoking and tobacco/nicotine status: current every day tobacco/nicotine user cigarettes Packs smoked per day: 1 Alcohol intake: current Alcohol intake frequency: holidays/special occasions only Substance/Drug Use: current Substance/Drug use frequency: few times a month Lives independently: Yes Household members: family Marital status: Current occupational status: disabled Special samuel needs: No Agree to transfusion: Yes Vitals/I&O/Wt Last Vital Signs Temp 97.8 F 12/01/24 02:14 Pulse 95 12/01/24 08:50 Resp 19 H 12/01/24 08:50 BP 124/96 12/01/24 08:45 Pulse Ox 71 L 12/01/24 08:50 O2 Del Method BiPAP 12/01/24 07:14 O2 Flow Rate 15 12/01/24 06:45 FiO2 60 04/07/25 07:14 11/30/24 12/01/24 12/01/24 22:59 06:59 14:59 Intake Total 1000 / 1000 1570 / 1570 Balance 1000 / 1000 1570 / 1570 Weight last 48 hrs Weight 197 lb Physical Exam Narrative: on Bipap RRR Abdomen soft, distended, diffusely tender, no rebound, non peritonitic. Data 12/01/24 03:22 12/01/24 03:22 A&P Assessment and plan (1) Large bowel obstruction: 59-year-old female with multiple comorbidities with a frozen abdomen with a history of smoldering diverticulitis since 2019 that was treated with abdominal washout. Patient returns with abdominal pain. Still passing gas and having bowel movements but I suspect she is developing another partial large bowel obstruction. White count is 32,000 and there seems to be some pneumatosis of the right side of the colon. Patient has a colorectal surgeon in [place] at [facility] Dr. Gutierrez. I have contacted their transfer service and I am awaiting a callback. Patient is too medically and surgically complex to be treated at [facility]. She should be transferred immediately for management by colorectal surgery. PDMP PDMP Reviewed: Not Reviewed Coding Level of Care Code 21038 Diagnoses Large bowel obstruction K56.609
[2024-12-01 09:08] LABS: ABG PCO2 42.5 mmHg (35-45); ABG PH Result 7.33 (7.35-7.45); Alveolar-Arterial Oxygen Gradi 41.5 mmHg (5-10); Arterial Blood Gas Hematocrit 56.8 % (37-47); Base Excess ABG -3.5 mmol/L (-2.0-2.0); Blood Gas Allen Test Pos; Blood Gas Operator Identificat glc; Blood Gas Sample Site Radial, right; Blood Gas Sample Type Arterial; Carboxyhemoglobin 1.5 %THgb (0.4-20.1); HCO3 ABG 22.4 mmol/L (22-26); HGB O2 Sat 84.2 % (95-100); Ionized Calcium Level - ABG 1.2 mmol/L (1.1-1.4); Oxygen Device BIPAP; Oxygen Saturation ABG 85.4; PO2 ABG 55.6 mmHg (80.0-100.0); PO2 FiO2 Ratio Arterial Blood 92; Potassium Level - ABG 3.9 mmol/L (3.5-5.0); Total Hemoglobin 18.5 g/dL (12-16)
[2024-12-01] MEDS: metroNIDAZOLE IV 500 MG/100 ML PREMIX 100 MG IV (09:17)
[2024-12-01] MEDS: etomidate 2 mg/mL INJ SDV 10 mL 20 MG IVP (09:49)
[2024-12-01] MEDS: vecuronium 10 mg SDV IVP (09:49)
[2024-12-01] MEDS: fentaNYL 1,000 MCG/100 ML BAG 2.5 MCG IV (09:52)
--- NOTE | 2024-12-01 09:52 | XR_ITS ---
WS: [id number] Exam: XR chest 1V portable [id number] Date/Time of Exam: 12/01/2024 9:52 AM Reason For Exam: INTUBATION Comparison with the previous exam performed earlier the same day at 6:04 a.m. An ET tube has been placed and ends about 5 cm above the edwar in satisfactory position. An enteric tube is looped in the stomach. There is infiltrate in the RIGHT lower lobe unchanged. LEFT lung is clear. No pneumothorax or pleural effusion. XR/XR chest 1V portable [id number] IMPRESSION: 1. ET tube and enteric tube both in satisfactory position. 2. RIGHT lower lobe infiltrate is unchanged
--- NOTE | 2024-12-01 09:52 | P.MISC_ITS ---
Miscellaneous Note Note: [facility] accepted stat transfer under Dr. Dahl.
--- NOTE | 2024-12-01 09:52 | PM.MISC ---
Miscellaneous Note Note: [facility] accepted stat transfer under Dr. Dahl.
[2024-12-01] MEDS: midazolam hcl 100 MG/100 ML BAG IV (09:53)
[2024-12-01] MEDS: norepinephrine 4 MG/250 ML BAG 52.5 MG IV (10:15)
[2024-12-01 10:24] LABS: ABG PCO2 57.9 mmHg (35-45); ABG PH Result 7.22 (7.35-7.45); Alveolar-Arterial Oxygen Gradi 75.1 mmHg (5-10); Arterial Blood Gas Hematocrit 58.1 % (37-47); Base Excess ABG -5.5 mmol/L (-2.0-2.0); Blood Gas Operator Identificat glc; Blood Gas Sample Site Brachial, right; Blood Gas Sample Type Arterial; Carboxyhemoglobin 1.3 %THgb (0.4-20.1); HCO3 ABG 23.6 mmol/L (22-26); HGB O2 Sat 86.1 % (95-100); Ionized Calcium Level - ABG 1.1 mmol/L (1.1-1.4); Methemoglobin 0.3 % (0.4-1.5); Oxygen Device VENT; Oxygen Saturation ABG 87.4; PO2 ABG 66.1 mmHg (80.0-100.0); PO2 FiO2 Ratio Arterial Blood 66
--- NOTE | 2024-12-01 10:44 | XR_ITS ---
WS: [id number] Exam: XR chest 1V portable [id number] Date/Time of Exam: 12/01/2024 10:48 AM Reason For Exam: central line placement Comparison with the earlier film performed on the same day at 0959 hours. A RIGHT IJ catheter has been placed and ends at the cavoatrial junction in good position. ET tube and NG tube both remain in satisfactory position. Infiltrates in the mid and lower RIGHT lung unchanged. XR/XR chest 1V portable [id number] IMPRESSION: 1. Right-sided IJ catheter in satisfactory position. The chest is otherwise unc hanged.
[2024-12-01 10:57] LABS: Basophils # 0.1 10^3/uL (0.0-0.1); Basophils % 0.4 %; Eosinophils % 0.1 %; Hematocrit 56.9 % (36-47); Lymphocytes # 1.7 10^3/uL (0.8-4.8); Lymphocytes % 6.2 %; Mean Corpuscular HGB Conc 31.5 g/dL (30-55); Mean Corpuscular Hemoglobin 28.8 pg (27-33); Mean Corpuscular Volume 91.5 fl (85-98); Mean Platelet Volume 9.3 fL (7.4-10.4); Monocytes # 0.5 10^3/uL (0.2-0.9); Monocytes % 1.8 %; Neutrophils # 24.78 10^3/uL (1.8-7.7); Nucleated Red Blood Cells % 0 %; Platelet Count 348 10^3/cmm (157-399); Red Blood Count 6.22 10^6/uL (3.85-5.65); Red Cell Distribution Width 16.6 % (12.1-15.1); White Blood Count 27.53 10^3/uL (3.29-11.43)
[2024-12-01] MEDS: vasopressin 40 UNIT/100 ML PREMIX 4.5 UNIT IV (11:05)
[2024-12-01 11:09] LABS: INR 1.48 (0.8-1.2)
[2024-12-01 11:16] LABS: Alanine Aminotransferase 38 U/L (0-33); Alkaline Phosphatase 138 U/L (35-105); Anion Gap 20.2 (5-19); Aspartate Amino Transferase 46 U/L (0-32); Blood Urea Nitrogen 44 mg/dL (6-20); Calcium 8.1 mg/dL (8.5-10.5); Carbon Dioxide 24 mmol/L (22-29); Chloride 101 mmol/L (98-107); Creatinine Clr Calc Pharmacy 55.4812; Globulin 2.8 g/dL (1.3-4.6); Glucose 112 mg/dL (65-115); Magnesium 3.1 mg/dL (1.7-2.3); Osmolality Calculated 304 mOsm/kg (285-295); Potassium 4.2 mmol/L (3.5-5.1); Sodium 141 mmol/L (136-145); Total Bilirubin 1.7 mg/dL (0.15-1.2); Total Protein 5.8 g/dL (6.6-8.7)
[2024-12-01 11:19] LABS: Lactic Sepsis W/Reflex 5.9 mmol/L (0.5-2.2)
[2024-12-01 12:36] LABS: Reflex Lactate Order REFLEX LACTIC ORDERD
[2024-12-01 13:15] LABS: Add Urine Microscopic? YES; Bilirubin Urine 2+ (Negative); Blood Urine Neg (Negative); Glucose Urine UA Norm (Normal); Ketones Urine 1+ (Negative); Leukocyte Esterase Urine Trace (Negative); Nitrate Urine Negative (Negative); Protein Urine 1+ (Negative); Specific Gravity, Urine 1.015 (1.005-1.030); Squamous Epithelial Cell Urine 0-4 /hpf (0-5); UA Slide Review UA Slide Review Perf; Urine Appearance Clear (CLEAR); Urine Color Yellow (Yellow); Urobilinogen Urine 8 mg/dL (Negative); WBC Urine 0-4 /hpf (0-5); pH Urine 5 (5-7)
[2024-12-01 13:16] LABS: Add Urine Culture? No; Hyaline Casts Urine 0-4 /lpf
== END 2024-12-01 11:45 ==
LOC: ER 07:19 → ICU 09:40
PROVIDERS: Emergency Medicine; Internal Medicine; Emergency Provider Family Medicine; PCP Family Medicine
DX: K59.00 Constipation, unspecified (principal); K56.609 Unspecified intestinal obstruction, unspecified as to partial versus complete obstruction; A41.9 Sepsis, unspecified organism; F17.210 Nicotine dependence, cigarettes, uncomplicated; J44.9 Chronic obstructive pulmonary disease, unspecified; E78.5 Hyperlipidemia, unspecified; I10 Essential (primary) hypertension
CPT/HCPCS: 31500; 36415; 36556; 36600; 51702; 71045; 74176; 80051; 80053; 80307; 81001; 82330; 82803; 82805; 83605; 83690; 83735; 85025; 85610; 86140; 87040; 87070; 87205; 94002; 94660; 94799; 96365; 96366; 96367; 96375; 96376; 99291; J1630; J1885; J1956; J2060; J2250; J2270; J2598; J3010; J3480; J3490; J7030; J9999